=== PATIENT | female | born 1945 | race Caucasian/White ===

== ENCOUNTER 2022-11-30 12:53 | Outpatient (OUT) | payer MEDICARE, SELFPAY ==
--- NOTE | 2022-11-30 14:21 | CA_ITS ---
Patient Name Site Name PRAVIN SCHAEFFER [facility] Account No Medical Record Number Age Sex Date Time [id number] [facility]:[id number] F 11/30/2022 13:11 At the Request Of RICCO MOSER ECHOCARDIOGRAM REPORT PROCEDURE: CA ECHO DOPPLER COMPLETE INDICATIONS: Left ventricular diastolic dysfunction, PFO COMPARISON: None. DESCRIPTION: COMPLETE ECHOCARDIOGRAM Real-time transthoracic echocardiography with 2D, M-mode, spectral and color flow Doppler performed. QUALITY: Technical quality was good. LEFT VENTRICLE: Normal chamber size. Moderate concentric left ventricular hypertrophy. Global left ventricular systolic function is normal. LV EF: Calculated left ventricular ejection fraction is 65% DIASTOLIC: ATRIAL SEPTUM: A closure device is seen well seated in the atrial septum. No leaks were visualized LEFT ATRIUM: Mild dilatation. RIGHT ATRIUM: Mild dilatation. RIGHT VENTRICLE: Normal chamber size. Normal right ventricular systolic function. TRICUSPID VALVE: Normal mobility and thickness. No stenosis with trivial regurgitation. No evidence of pulmonary hypertension. RVSP 34 mmHg MITRAL VALVE: Normal mobility and thickness. No evidence of mitral valve stenosis. There is no mitral annular calcification. Trivial mitral regurgitation. AORTIC VALVE: Normal trileaflet appearance. No visible sclerosis. Normal leaflet mobility. No evidence of aortic valve stenosis. Trivial aortic regurgitation. AORTIC ROOT: Normal diameter and appearance. Mild dilatation of the ascending aorta measuring 3.7 cm. PULMONIC VALVE: Normal thickness and mobility. No stenosis. Trivial regurgitation. PERICARDIUM: No evidence of pericardial effusion. IVC: Collapses with inspirations. Normal size. PLEURA: CONCLUSION: 1. Moderate concentric left ventricular hypertrophy. Normal left ventricular systolic function. LVEF is 65%. 2. Normal right ventricular size and systolic function. 3. Mild biatrial dilatation. 4. No significant valvular dysfunction. 5. A closure device is seen well-seated in the atrial septum. No shunting seen by color Doppler. 6. Normal right-sided pressures. Mild dilatation of the ascending aorta. 7. 8. No pericardial effusion. Adult Echocardiography Procedure Report Left Ventricle LVEDD (3.7 - 5.6 cm): 4.56 cm LVESD (2.2 - 4.0 cm): 3.05 cm LVIVS thickness (0.6 - 1.2 cm): 1.34 cm LVPW thickness (0.5 - 1.0 cm): 1.37 cm e': 0.07 m/s E - e': 13.76 LVOT Max Gradient: 6.32 mm[Hg] LVOT Area (cm2): 1.26 m/s Peak Velocity (LVOT): 1.26 m/s Mean Velocity (LVOT): 0.85 m/s LVOT Diameter 1.93 cm Left Ventricular Ejection Fraction: 65.02 % Left Atrium LA Volume Index (2D A2C): 52.63 ml/m2 Left Atrium Systolic Dimension: 3.01 cm Mitral Valve MV E to A Ratio: 1.34 Mitral Valve A-Wave Peak Velocity: 0.73 m/s Mitral Valve E-Wave Peak Velocity: 0.98 m/s Right Ventricle RV Internal Diastolic Dimension: 2.90 cm Aorta AO Root Diam: 2.92 cm Ascending Ao Diam: 3.67 cm Aortic Valve AoV Area (Peak Rico): 2.59 cm2, 2.59 cm2 AoV Area (VTI): 2.50 cm2, 2.50 cm2 Peak Velocity(Antegrade Flow): 1.42 m/s Peak Gradient(Antegrade Flow): 8.03 mm[Hg] Mean Velocity(Antegrade Flow): 0.94 m/s Mean Gradient(Antegrade Flow): 4.09 mm[Hg] Velocity Time Integral: 26.36 cm Tricuspid Valve Peak Velocity (Regurgitant Flow): 2.38 m/s, 2.41 m/s, 2.78 m/s Pulmonic Valve Peak Velocity: 1.32 m/s Peak Gradient: 8.07 mm[Hg], 5.99 mm[Hg] Right Atrium Right Atrium Systolic Pressure: 39.98 ml, 39.98 ml Dictated by: eHrman Robertson M.D. on 12/01/2022 at 19:24 Approved by: Herman Robertson M.D. on 12/01/2022 at 19:31
== END 2022-11-30 12:54 | disposition home or self-care (01) ==
PROVIDERS: PCP Physician Assistant; Visit Provider Nurse Practitioner
DX: I51.9 Heart disease, unspecified (principal); Q21.12 Patent foramen ovale
CPT/HCPCS: 93306

== ENCOUNTER 2023-07-24 12:30 | Outpatient (OUT) | payer MEDICARE, SELFPAY | END 2023-07-24 12:31 | disposition home or self-care (01) | LOC: PST 12:31 | PROVIDERS: PCP Physician Assistant; Visit Provider Ophthalmology | DX: Z01.818 Encounter for other preprocedural examination (principal); H25.812 Combined forms of age-related cataract, left eye; H40.1121 Primary open-angle glaucoma, left eye, mild stage ==

== ENCOUNTER 2023-07-27 07:02 | Day surgery (SDC) | payer MEDICARE, SELFPAY ==
--- NOTE | 2023-07-26 | HP_ITS ---
Date: 07/26/2023 HISTORY: The patient is a 78-year-old white female with complaints of declining vision out of her left eye. The onset of this has been gradual, noticed over the last two years. It is constant in nature, effecting both distance as well as near. She states having difficulty watching TV and working on the computer. She has difficulty seeing crossword clues and smaller print. She also states have difficulty driving at night time due to oncoming headlights creating glare and halos. Additionally, she also suffers with primary open angle glaucoma and is concerned about the progression of this disease. She has had family members go blind because of the disease, and she does not feel always completely compliant with utilization of her drops. PAST OCULAR HISTORY: Includes dry eyes, glaucoma and cataracts. PAST MEDICAL HISTORY: Cellulitis, hyperlipidemia, hypertension, history of a patent foramen ovale, rheumatoid arthritis, history of a stroke in 2016, back surgery, gallbladder removed, hip arthroplasty, knee arthroplasty, shoulder surgery, ventral hernia repair and section. ALLERGIES TO MEDICATIONS: Include somataxin, aflatoxin, gabapentin, sulfa antibiotics. SYSTEMIC MEDICATIONS: Include lisinopril, furosemide, potassium chloride, folic acid, hydroxychloroquine, methotrexate, 81 mg aspirin, atorvastatin, colecalciferol. REVIEW OF SYSTEMS: No pertinent positives. PHYSICAL EXAM: GENERAL: In general, she is awake, alert and oriented x3, well developed, well nourished, in no acute distress. HEART: Regular rate and rhythm. LUNGS: Clear bilaterally. ABDOMEN: Soft, non-tender, non-distended. EXTREMITIES: No pitting edema. OPHTHALMIC EXAM: Revealed a visual acuity of 20/50 -1 in the right and 20/70 in the left that glared to 20/200 and 20/400 right and left eyes respectively.. Pupils motility, muscle balance and confrontational visual germain within normal limits bilaterally. Pressures are measured at 11 bilaterally. Slit lamp exam revealed blepharitis with a severe decrease in tear film bilaterally. Conjunctiva, cornea, anterior chamber and iris were within normal limits bilaterally. Lens status demonstrated 3+ nuclear sclerosis bilaterally. FUNDUS EXAM: Revealed good view with good dilation bilaterally. Optic discs, macula, vessels, periphery and vitreous were within normal limits bilaterally. ASSESSMENT AND PLAN: 1. Visually significant cataract, left eye. After the risks, benefits, and alternatives as well as expectations were delivered to the patient, she elected to go forward with cataract removal. She understands those risks to include but not limited to infection, bleeding, loss of vision or loss of the eye itself. Secondly, she understands that postoperatively she is likely to require spectacle correction for her best visual acuity. Finally, a complete ophthalmic exam was performed and there was not determined to be any other source of vision decline other than that of cataract. 2. Primary open angle glaucoma, mild severity. After the risks, benefits, alternatives as well as expectations were delivered to the patient, she elected to go forward with a Hydrus stent insertion. She understands the risks include but not limited to those listed above for the cataract removal process. In addition to these, she also understands that there is a risk of intraocular bleeding at the time of or shortly after the procedure is performed. Additionally, she understands that this does not guarantee the possibility of progression of the disease of glaucoma, nor does it guarantee the elimination of needing drops after the procedure. After understanding all risks as well as expectations, she elected to go forward with both the procedures as listed above and will be doing so in the near future. PAT
--- NOTE | 2023-07-27 | OP_ITS ---
OPERATION DATE: 07/27/2023 SURGEON: James Canela M.D. PREOPERATIVE DIAGNOSIS: 1. Nuclear sclerotic cataract left eye 2. Primary open angle glaucoma, mild severity, left eye. POSTOPERATIVE DIAGNOSIS: 1. Nuclear sclerotic cataract left eye. 2. Primary open angle glaucoma, mild severity, left eye. PROCEDURE NAME: 1. Cataract extraction with intraocular lens placement of the left eye. 2. Hydrus stent insertion left eye. ANESTHESIA: Topical ESTIMATED BLOOD LOSS: Zero. COMPLICATIONS: None. PROCEDURE: In the preoperative holding area, topical proparacaine was placed into the eye, and the patient was sat up in an upright position. In this position, the 90 degree, 6 o?clock limb axis was marked with a marking pen for future referencing for the Toric intraocular lens. The patient was then brought to the Operating Room in supine position. After proper identification, the left eye was prepped and draped in a sterile ophthalmic fashion. A paracentesis was created at the 5 o'clock position, and approximately 1 cc of unpreserved Xylocaine was injected into the anterior chamber followed by Amvisc Plus. Using a 2.6 mm Keratome blade, a clear corneal incision was created at the 2 o'clock limbus. A cystotome was then used to begin a curvilinear capsulorrhexis that was continued for 360 degrees with the Utrata forceps. BSS on a 26 gauge cannula was injected beneath the anterior capsule to hydrodissect as well as hydrodelineate the lens. After ensuring mobility, phacoemulsification was performed in a [id number]-type fashion. After all nuclear material had been removed from the eye, IA was introduced and all residual cortical material was cleaned up. Additional Amvisc Plus was injected into the posterior bag and a lens model [id number], 15.0 diopters was injected and dialed into bag. Drying off the surface of the eye and using a [employer] Toric marking system, the 86 degree axis was found and marked on the surface of the eye. The intraocular lens was dialed approximately 10 degrees shy of this 86 degree axis without difficult. Steps were now taken to move on to the glaucoma stenting procedure. Healon 5 was injected into the anterior chamber to further pressurize and stabilize it. Using the 2.6 mm Keratome blade, the internal lip of the main incision was expanded. The patient?s head was rotated away from the surgeon, and the operating microscope was rotated toward the surgeon, approximately 20 degrees each. Amvisc Plus was placed on the surface of the gonioprism that was placed on the surface of the eye, and this allowed for visualization of the trabecular meshwork at the 9 o?clock location. A Hydrus stent was called for and primed. This was then inserted through the temporal wound and guided across the anterior chamber with good visualization with the gonioprism in place. Once reaching the trabecular meshwork at the 9 o?clock location, the tip of the regulator pin inserter was used to dissect into the trabecular meshwork, accessing Schlemm?s canal. The stent was then deployed into Schlemm?s canal with good visualization at the 9 o?clock location. After checking for localization as well as stabilization, the regulator pin inserter and the gonioprism were removed from the eye and the patient?s head was rotated back to a more neutral cataract removal position. IA was reintroduced into the anterior chamber and all residual Amvisc Plus and Healon 5 were removed from the eye. BSS on a 30 gauge cannula was injected into the stroma of both the clear corneal incision as well as paracentesis to hydrate the wounds. Additional BSS was injected into the anterior chamber to pressurize the eye at approximately 20 to 22 mmHg by finger tension. Utilizing the irrigation cannula, the lens was rotated the final 10 degrees to the 86 degrees axis without difficulty. 0.1 cc of antibiotic was used into the anterior chamber, and Weck-Yulia sponge was used to check to be watertight. One drop of apraclonidine and one drop of prednisolone acetate were placed into the eye and a shield was placed over top. The patient was sent to the postoperative area in satisfactory condition to follow up the following day for postoperative care. PAT
--- OUTSIDE RECORDS SUMMARY | 2023-07-27 07:06 | XMS_ITS | CCD ---
Author Name Unknown Address [address] [place] [address] Organization [facility] Care Team Providers Care Domestic Maid Name Role Phone UNKNOWN, PROVIDER Unavailable Unavailable UNKNOWN, PROVIDER Unavailable Unavailable BERNA, CINDA Unavailable Unavailable BERNA, CINDA Unavailable Unavailable UNKNOWN, PROVIDER Unavailable Unavailable UNKNOWN, PROVIDER Unavailable Unavailable BERNA, CINDA Unavailable Unavailable BERNA, CINDA Unavailable Unavailable UNKNOWN, PROVIDER Unavailable Unavailable UNKNOWN, PROVIDER Unavailable Unavailable BERNA, CINDA Unavailable Unavailable BERNA, CINDA Unavailable Unavailable PHYSICIAN, DEFAULT Unavailable Unavailable PHYSICIAN, DEFAULT Unavailable Unavailable BERNA, CINDA Unavailable Unavailable PHYSICIAN, DEFAULT Unavailable Unavailable PHYSICIAN, DEFAULT Unavailable Unavailable BERNA, CINDA Unavailable Unavailable Samantha Murphy Primary Care Provider Cinda Coronel Primary Care Provider [phone] RICCO MOSER Attending Unavailable EHSAN, RICCO Admitting Unavailable MISDR TODD Acosta Consulting Unavailable EHSAN, RICCO Attending Unavailable EHSAN, RICCO Admitting Unavailable EHSAN, RICCO Consulting Unavailable Cinda CORONEL Primary Care Physician [phone] Mercedes Kelley Unavailable Unavailable Seamus, Staci Unavailable Unavailable MD Leonel Aguirre Attending Provider MD Leonel Aguirre Attending Provider Cinda Coronel Primary Care Provider RICCO MOSER Attending Unavailable SHAN BOX Attending Unavailable SHAN BOX Admitting Unavailable CINDA CORONEL Primary Care Unavailabl e NO FAMILY, PHYSICIAN Primary Care Provider Unava ilable MD Syd Muir Admit Provider MD Syd Muir Attending Provider OTIS Cruz Other Provider Unavailable OTIS Mack Other Provider Unavailable Raúl RN Rasheeda Other Provider Unavailable OTIS Durán Other Provider Unavailable OTIS Souza Other Provider Unavailable OTIS Virk Other Provider Unavailable MD Will Brown Other Provider ROBERT DowellN Staci M Other Provider DO Guerline Hickman Other Provider MD Levar Rodriguez Other Provider DO Tom Jenkins Other Provider MD Sotero Daley Other Provider MD Sue Beasley Other Provider Martha, ANP-BC Ivy Other Provider MD Pema Patel Other Provider [phone] MD Brown Young Other Provider MD Simi Alcaraz Other Provider MD Annia Esparza Other Provider DO Shan Hou Other Provider MD Mihaela Brown Other Provider MD Robin Randhawa Other Provider FIDENCIO Gross-Karla Gonzales Other Provider MD Enrique Rousseau Other Provider MD Conrad Davison Other Provider MD Montez Velazquez Other Provider MD Malcolm Burgos Other Provider DO Shantell Patterson Other Provider DO Carlos Garcia Other Provider [phone] DO Wm Belle Other Provider TRAY Michel Other Provider DO Coy Arias Other Provider MD Louis Franklin Other Provider TRAY Solorzano Other Provider TRAY Sosa Other Provider MD Christina Cross Other Provider MD Saul Rucker Other Provider TRAY Mcintyre Other Provider [phone] Georgie, RN Bhumi Other Provider Unavailable Berna BURT, Cinda Soliz Primary Care Provider NO FAMILY, PHYSICIAN Primary Care Provider Unava ilable MD Syd Muir Admit Provider MD Syd Muir Attending Provider OTIS Cruz Other Provider Unavailable OTIS Mack Other Provider Unavailable OTIS Olsen Other Provider Unavailable Leeanna RN Abril Other Provider Unavailable OTIS Souza Other Provider Unavailable OTIS Virk Other Provider Unavailable MD Will Brown Other Provider TRAY Dowell Other Provider [phone] DO Guerline Hickman Other Provider MD Levar Rodriguez Other Provider DO Tom Jenkins Other Provider MD Sotero Daley Other Provider MD Sue Beasley Other Provider TRAY Gannon Other Provider MD Pema Patel Other Provider MD Brown Young Other Provider MD Simi Alcaraz Other Provider MD Annia Esparza Other Provider DO Sahn Hou Other Provider MD Mihaela Brown Other Provider MD Robin Randhawa Other Provider HALEIGH GrossC Diane Gonzales Other Provider [phone] MD Enrique Rousseau Other Provider MD Conrad Davison Other Provider MD Montez Velazquez Other Provider MD Malcolm Burgos Other Provider DO Shantell Patterson Other Provider DO Carlos Garcia Other Provider DO Wm Belle Other Provider TRAY Michel Other Provider DO Coy Arias Other Provider MD Louis Franklin Other Provider [phone] TRAY Solorzano Other Provider TRAY Sosa Other Provider MD Christina Cross Other Provider MD Saul Rucker Other Provider TRAY Mcintyre Other Provider [phone] OTIS Jacques Other Provider Unavailable MD Leonel Aguirre Attending Provider [phone] Syd Muir Admitting Unavailable Syd Muir Attending Unavailable Rosa Maria Cruz Consulting Unavailable NO FAMILY, PHYSICIAN Primary Care Unavailable Nathalie Mack Consulting Unavailable Rasheeda Olsen Consulting Unavailable Abril Durán Consulting Unavailable Clarissa Souza Consulting Unavailable Fadumo Virk Consulting Unavailable Will Brown Consulting Unavailable Staci Dowell Consulting Unavailable Guerline Hickman Consulting Unavailable Michael, Levar Consulting Unavailable Tom Jenkins Consulting Unavailabl Sotero Russell Consulting Unavailable Sue Beasley Consulting Unavailable Ivy Gannon Consulting Unavailabl Pema Weiss Consulting Unavailable Brown Young Consulting Unavailable Simi Alcaraz Consulting Unavailable Annia Esparza Consulting Unavailable Shan Hou Consulting Unavailable Mihaela Brown Consulting Unavailable Robin Randhawa Consulting Unavailable Diane Gross Consulting Unavailable Enrique Rousseau Consulting Unavailab Conrad Galo Consulting Unavailable Montez Velazquez Consulting Unavailable Malcolm Burgos Consulting Unavailable Shantell Patterson Consulting Unavailable Carlos Garcia Consulting Unavailable Wm Belle Consulting Unavailable ObKiki mehta Consulting Unavailable Coy Arias Consulting Unavailable DaromarGreggayzaneh Liz Consulting Unavailable Yari Solorzano Consulting Unavailable MohShira cueto Consulting Unavailable Alajosephad Alaa Consulting Unavailable Saul Rucker Consulting Unavailable Juliana Mcintyre Consulting Unavailable Bhumi Jacques Consulting Unavailable Yanethy Leonel Admitting Unavailable Haladay Leonel Attending Unavailable HaladayLeonel Admitting Unavailable Haladay Leonel Attending Unavailable NO FAMILY, PHYSICIAN Primary Care Unavailable BERNA, CINDA SOLIZ Primary Care Unavailabl e SHAN BOX Attending Unavailable BERNA, CINDA SOLIZ Primary Care Unavailabl e SCOTCH, JUDIT Attending Unavailable BERNACINDA Primary Care Unavailabl e SCOTCH, JUDIT Referring Unavailable BERNA, CINDA FRANKLYN Primary Care Unavailabl RICO Ferrari Referring Unavailable BERNA, CINDA FRANKLYN Primary Care Unavailabl e BERNA, CINDA FRANKLYN Primary Care Unavailabl e SHAN BOX Referring Unavailable BERNACINDA Primary [facility] Unavailabl e SHAN BOX Referring Unavailable BERNACINDA Primary [facility] Unavailabl e SCOTCHJUDIT Attending Unavailable SHAN BOX Referring Unavailable BERNA, CINDA SOLIZ Primary Care Unavailabl e SHAN BOX Referring Unavailable BERNA, CINDA FRANKLYN Primary [facility] Unavailabl e BERNA, CINDA FRANKLYN Primary [facility] Unavailabl e SHAN BOX Attending Unavailable SHAN BOX Attending Unavailable CINDA CORONEL Primary Care UnavailCINDA Aldridge Primary Care UnavailSHAN Muniz Referring Unavailable Alysia Barrientos DO Mary Primary Care Provider [phone] AURY BASS Attending Unavailable Cinda CORONEL Admitting Unavailable REFERRAL, SELF Referring Unavailable Cinda CORONEL Attending Unavailable Cinda CORONEL Consulting Unavailable CARMEL CORONEL Consulting UnavailTHOMAS Whitlock Consulting Unavailable LEONEL AGUIRRE Attending Unavailable LEONEL AGUIRRE Admitting Unavailable COOKIE QUIROZ Attending Unavailable COOKIE QUIROZ Admitting Unavailable LEONEL AGUIRRE Consulting Unavailable MD LEONEL AGUIRRE Consulting Unavailable Allergies Allergy Classification Reported Allergen(s) Allergy Type Date of Onset Reaction(s) Facility Anti-Epileptic Agents (1 source) gabapentin Drug Allergy 5 Other: See Comments [facility] NSAIDs (1 source) celecoxib Drug Allergy 7 Hives, Swelling [facility] rofecoxib (1 source) rofecoxib Drug Allergy 7 Cough [facility] (2 sources) celecoxib; Translations: [Celebrex] Drug Allergy 6 [facility] (7 sources) gabapentin; Translations: [GABAPENTIN] Drug Allergy 5 AOF, Weakness [facility] (16 sources) rofecoxib; Translations: [vioxx] Drug Allergy 6 Aptyalism (disorder) [facility] (2 sources) Sulfonamides (Antibiotic); Translations: [SULFA (SULFONAMIDE ANTIBIOTICS)] Drug allergy (disorder) 6 AOF [facility] (20 sources) celecoxib; Translations: [celecoxib] Drug Allergy 7 Hives, Swelling [facility] (20 sources) gabapentin; Translations: [gabapentin] Drug Allergy 5 Falls (finding), Other: See Comments, Other, Unknown [facility] (15 sources) Sulfonamides (Antibiotic); Translations: [sulfa drugs] Drug allergy unknown [facility] (11 sources) rofecoxib; Translations: [ROFECOXIB] Drug Allergy 7 Cough [facility] (1 source) celecoxib Drug Allergy 3 [facility] (1 source) gabapentin Drug Allergy 3 [facility] (1 source) rofecoxib Drug Allergy 3 [facility] (1 source) celecoxib Drug Allergy 7 Hives, Swelling, Rash [facility] (1 source) rofecoxib Drug Allergy 7 Cough, Unknown [facility] (1 source) Sulfonamides (Antibiotic) Drug Allergy 3 Unknown [facility] Medications Current Medications Medication Drug Class(es) Dates Sig (Normalized) Sig (Original) acetaminophen 500 mg oral tablet (18 sources) Start: 02-10-2023 take 500 mg by mouth every four hours Acetaminophen Active 500 MG PO Q4H 0 February 09, 2023 11:00pm Start: 01-19-2023 take 2 tablets by mo uth every eight hours acetaminophen (TYLENOL) 500 mg tablet Take 2 tablets by mouth every 8 hours. 0 01/19/2023 Active Start: 05-18-2022 take 2 tablets by mo uth every six hours as needed for pain acetaminophen 325 mg Tab 650 mg = 2 tab(s), Oral, q6hr, PRN Pain, Refills(s) 0 Start Date: 05/18/22 Status: Ordered Start: 05-17-2019 take 2 tablets by mo uth every six hours as needed for pain acetaminophen 500 mg Tab 1,000 mg = 2 tab(s), Oral, q6hr, PRN as needed for pain Start Date: 05/17/19 Status: Ordered Comment on above: Take 2 tablets by mo uth every 8 hours. acetaminophen 325 mg / HYDROcodone bitartrate 5 mg oral tablet (1 source) Opioid Agonist Start: 2 End: 2 [place] 325 mg-5 mg oral tablet 1 tab(s), Oral, q6hr for pain for 3 day(s), 5 tab(s), Refill(s) 0 Start Date: 02/05/22 Stop Date: 02/08/22 Status: Ordered amoxicillin 875 mg / clavulanate 125 mg oral tablet (1 source) Penicillin-class Antibacterial Start: 2 End: 2 Augmentin 875 mg-125 mg Tab 1 tab(s), Oral, q12hr for 10 day(s), 20 tab(s), Refill(s) 0 Start Date: 02/05/22 Stop Date: 02/15/22 Status: Ordered aspirin 81 mg chewable tablet (20 sources) Platelet Aggregation Inhibitor, Nonsteroidal Anti-inflammatory Drug Start: 3 End: 3 take 1 tablet by mouth once daily Aspirin (Children's Aspirin) 81 mg Tablet,Chewable Active 81 MG PO Daily February 09, 2023 11:00pm Start: 12-23-2022 take 1 tablet by asif th once daily aspirin, enteric coated (ECOTRIN LOW STRENGTH) 81 mg EC tablet Take 1 tablet by mouth once daily. 0 12/23/2022 Active Start: 10-12-2018 take 1 tablet by asif th once daily aspirin 81 mg Oral EC Tab 81 mg = 1 tab(s), Oral, Daily, Refills(s) 0, Blood Thinner Start Date: 10/12/18 Status: Ordered Start: 10-12-2018 take 1 tablet by asif th once daily aspirin 81 mg Oral EC Tab 81 mg = 1 tab(s), Oral, Daily, Refills(s) 0, Blood Thinner Start Date: 10/12/18 Status: Ordered Start: 02-25-2015 End: 12-23-2022 take 1 tablet by mouth twice daily aspirin, enteric coated (ASPIRIN, ENTERIC COATED) 325 mg EC tablet Take 1 tablet by mouth twice daily. 80 tablet 0 02/25/2015 12/23/2022 Discontinued (Discontinued by another Health Care Provider) Comment on above: Take 1 tablet by asif th twice daily. Take 1 tablet by asif th once daily. atorvastatin 40 mg oral tablet (19 sources) HMG-CoA Reductase Inhibitor Start: 3 End: 3 take 40 mg by mouth once daily in the evening Atorvastatin Active 40 MG PO Every evening February 09, 2023 11:00pm Start: 07-18-2019 take 1 tablet by asif th once daily atorvastatin 40 mg Tab 40 mg = 1 tab(s), Oral, Daily, # 90 tab(s), Refills(s) 1, [id number] 154.5, cm, 04/10/19 15:59:00 EST, Height/Length Measured, 84.1, kg, 04/10/19 15:59:00 EST, Weight Measured Start Date: 07/18/19 Status: Ordered azithromycin 500 mg oral tablet (7 sources) Macrolide Antimicrobial Start: 05-18-2022 take 1 tablet by mouth once daily azithromycin 500 mg oral tablet 500 mg = 1 tab(s), Oral, Daily, # 3 tab(s), Refills(s) 0, Pharmacy: [facility]/pharmacy #[id number], 154, cm, 05/14/22 19:49:00 EST, Height/Length Dosing, 72.8, kg, 05/14/22 19:49:00 EST, Weight Dosing Start Date: 05/18/22 Status: Ordered benzonatate 100 mg oral capsule (7 sources) Non-narcotic Antitussive Start: 05-18-2022 take 2 capsules by mouth three times daily as needed for cough Tessalon 100 mg Cap 200 mg = 2 cap(s), Oral, TID, PRN Cough, # 20 cap(s), Refills(s) 0, [id number], cm, 05/14/22 19:49:00 EST, Height/Length Dosing, 72.8, kg, 05/14/22 19:49:00 EST, Weight Dosing Start Date: 05/18/22 Status: Ordered brimonidine tartrate 1.5 mg/ml ophthalmic solution (20 sources) alpha-Adrenergic Agonist Start: 02-10-2023 take 1 drop(s) into the eye(s) once daily Brimonidine Active 1 DROPS EYE-BOTH Daily 0 February 09, 2023 11:00pm Start: 02-01-2023 End: 02-10-2023 Brimonidine (Alphagan) 0.2 % Drops Discontinued 1 DROPS EYE-BOTH Daily January 31, 2023 11:00pm February 10, 2023 8:35am administer approximately 8 hours apart Start: 09-27-2009 take 1 drop(s) into the eye(s) once daily Alphagan P 0.15% ophthalmic solution 1 drop(s), Eye-Both, Daily, Refill(s) 0, Ocular congestion Start Date: 09/27/09 Status: Ordered Start: 09-27-2009 take 1 drop(s) into the eye(s) once daily Alphagan P 0.15% ophthalmic solution 1 drop(s), Eye-Both, Daily, Refill(s) 0, Ocular congestion Start Date: 09/27/09 Status: Ordered Start: 08-21-2006 ALPHAGAN P 0.1 % EYE DROPS one drop each eye daily 0 08/21/2006 Active Comment on above: one drop each eye [place] cephalexin 500 mg oral capsule (1 source) Cephalosporin Antibacterial Start: End: take 1 capsule by mouth every eight hours Keflex 500 mg Cap 500 mg = 1 cap(s), Oral, q8hr, X 3 day(s), # 9 cap(s), Refills(s) 0, Pharmacy: [facility]/pharmacy #[id number], 154, cm, 05/14/22 19:49:00 EST, Height/Length Dosing, 72.8, kg, 05/14/22 19:49:00 EST, Weight Dosing Start Date: 05/18/22 Stop Date: 05/21/22 Status: Ordered cholecalciferol 0.025 mg oral tablet (7 sources) Vitamin D Start: take 50 ug by mouth once daily Cholecalciferol (Vitamin D3) Active 50 MCG PO Daily 60 February 09, 2023 11:00pm Start: 02-01-2023 End: 02-10-2023 take 1 capsule by mouth once daily Cholecalciferol (Vitamin D3) (Vitamin D3) 25 mcg (1,000 unit) Capsule Discontinued 25 MCG PO Daily January 31, 2023 11:00pm February 10, 2023 8:35am Start: 12-23-2022 take 1 capsule by mo uth once daily Cholecalciferol, Vitamin D3, (VITAMIN D-3) 50 mcg (2,000 unit) cap Take 1 capsule by mouth once daily. 0 12/23/2022 Active take 1 capsule by mo ut in the morning cholecalciferol (Vitamin D-3) 50 MCG (2000 UT) capsule Take 2,000 Units by mouth in the morning. 0 Active Comment on above: Take 1 capsule by mo ut once daily. ferrous sulfate 324 mg delayed release oral tablet (10 sources) Start: 02-10-2023 Ferrous Sulfate Active 324 MG PO Q48H 15 February 09, 2023 11:00pm Start: 05-18-2022 take 1 tablet by asfi th once daily ferrous sulfate 325 mg Tab 325 mg = 1 tab(s), Oral, Daily, # 30 tab(s), Refills(s) 0, Pharmacy: [facility]/pharmacy #[id number], 154, cm, 05/14/22 19:49:00 EST, Height/Length Dosing, 72.8, kg, 05/14/22 19:49:00 EST, Weight Dosing Start Date: 05/18/22 Status: Ordered Start: 02-26-2015 End: 07-02-2015 take 1 tablet by mouth twice daily at mealtime ferrous sulfate 325 mg (65 mg iron) tablet Take 1 tablet by mouth twice daily with meals. 30 tablet 0 02/26/2015 07/02/2015 Discontinued Comment on above: Take 1 tablet by [facility] twice daily with meals. folic acid 1 mg oral tablet (20 sources) Start: 05-18-2022 Folic Acid Active 1 MG PO FR@0900 0 February 09, 2023 11:00pm Start: 04-10-2019 folic acid 1 m g Tab 4 mg = 4 tab(s), Oral, Monday, Arthritis Start Date: 04/10/19 Status: Ordered Start: 08-21-2006 take 4 tablets by mouth once F OLIC ACID 1 MG TAB Take four tablets po every Monday 0 08/21/2006 Active Comment on above: Take four tablets po every Monday furosemide 20 mg oral tablet (20 sources) Loop Diuretic Start: 2 End: 3 take 1 tablet by mouth in the morning furosemide (Lasix) 20 MG tablet Take 20 mg by mouth in the morning. 0 10/19/2022 Active Comment on above: Take 20 mg by mouth every morning. 12 hr guaiFENesin 600 mg extended release oral tablet (1 source) Start: 2 End: 2 take 2 tablets by mouth twice daily Mucinex 600 mg Tab-ER 1,200 mg = 2 tab(s), Oral, BID, X 3 day(s), # 12 tab(s), Refills(s) 0, Pharmacy: [facility]/pharmacy #[id number], 154, cm, 05/14/22 19:49:00 EST, Height/Length Dosing, 72.8, kg, 05/14/22 19:49:00 EST, Weight Dosing Start Date: 05/18/22 Stop Date: 05/21/22 Status: Ordered latanoprost 0.05 mg/ml ophthalmic solution (20 sources) Prostaglandin Analog Start: take 1 drop(s) into the eye(s) once daily in the evening Latanoprost Active 1 DROPS EYE-BOTH Every evening 0 February 09, 2023 11:00pm Start: 02-01-2023 End: 02-10-2023 take 1 drop(s) into the eye(s) once daily in the evening Latanoprost (Xalatan) 0.005 % drops Discontinued 1 DROPS EYE-BOTH Every evening January 31, 2023 11:00pm February 10, 2023 8:35am Start: 12-16-2015 take 1 drop(s) into the eye(s) once daily in the evening latanoprost ophthalmic 1 drop(s), Eye-Both, qPM, Refill(s) 0, Ocular congestion Start Date: 12/16/15 Status: Ordered take 1 drop(s) into the eye(s) once daily at bedtime latanoprost (XALATAN) 0.005 % ophthalmic solution 1 Drop daily at bedtime. 0 Active Comment on above: 1 Drop daily at bedt paulino. leflunomide 10 mg oral tablet (7 sources) Antirheumatic Agent Start: 06-24-19 17 take 1 tablet by mouth once daily leflunomide 10 mg oral tablet 10 mg = 1 tab(s), Oral, Daily, Refills(s) 0, Arthritis Start Date: 06/24/16 Status: Ordered lisinopril 40 mg oral tablet (20 sources) Angiotensin Converting Enzyme Inhibitor Start: 02-29-20 23 take 1 tablet by mouth in the morning lisinopril 40 MG tablet Indications: Primary hypertension (CMS/HCC) Take 1 tablet (40 mg) by mouth in the morning. 90 tablet 3 02/28/2023 Active Start: 02-10-2023 take 10 mg by mouth once daily Lisinopril Active 10 MG PO Daily February 09, 2023 11:00pm Start: 12-23-2022 End: 02-10-2023 take 1 tablet by mouth once daily lisinopril (ZESTRIL) 40 mg tablet Take 1 tablet by mouth once daily. 0 12/23/2022 Active Start: 05-18-2022 End: 05-18-2022 lisinopril 20 mg Tab 40 mg = 2 tab(s), Tab, Oral, Start date 05/18/22 9:00:00 EST, 05/15/22 6:56:00 EST Start Date: 05/18/22 Stop Date: 05/18/22 Status: Completed Start: 07-18-2019 take 1 tablet by asif th once daily lisinopril 40 mg Tab 40 mg = 1 tab(s), Oral, Daily, # 90 tab(s), Refills(s) 1, Pharmacy: [facility]/pharmacy #[id number], 154.5, cm, 04/10/19 15:59:00 EST, Height/Length Measured, 84.1, kg, 04/10/19 15:59:00 EST, Weight Measured Start Date: 07/18/19 Status: Ordered End: 12-23-2022 LISINOPRIL ORAL Take by mout h. 0 12/23/2022 Discontinued (Erroneous entry) LISINOPRIL ORAL Take by mouth. 0 Active Comment on above: Take by mouth. Take 1 tablet by asif th once daily. methylPREDNISolone 4 mg oral tablet (1 source) Corticosteroid Start: 2021 End: 2022 Medrol 4 mg Tab = 1 packet(s), Oral, As Directed, as directed on package labeling, X 6 day(s), # 21 tab(s), Refills(s) 0, Pharmacy: [facility]/pharmacy #[id number], 154, cm, 05/14/22 19:49:00 EST, Height/Length Dosing, 72.8, kg, 05/14/22 19:49:00 EST, Weight Dosing Start Date: 05/18/22 Stop Date: 05/24/22 Status: Ordered mupirocin 0.02 mg/mg topical ointment (3 sources) RNA Synthetase Inhibitor Antibacterial Start: 09-17- 2022 mupirocin Top 2% Oint 1 neftali, Topical, TID, 22 gram, Refill(s) 0 Start Date: 02/05/22 Status: Ordered pantoprazole 40 mg delayed release oral tablet (2 sources) Proton Pump Inhibitor Start: 2022 take 40 mg by mouth once daily Pantoprazole Active 40 MG PO Daily February 09, 2023 11:00pm Plenvu oral powder for reconstitution (1 source) Start: 2021 take 1 dose by mouth once Plenvu oral powder for reconstitution See Instructions, 1 EA, Refill(s) 0, samples given to patient (Rx), Per physician's instructions. Prior to colonoscopy. Start Date: 07/20/21 Status: Ordered potassium chloride 10 meq extended release oral tablet (16 sources) Start: 2022 take 1 tablet by mouth in the morning potassium chloride CR (Klor-Con) 10 MEQ ER tablet Take 10 mEq by mouth in the morning. 0 10/18/2022 Active Start: 07-20-2021 take 1 tablet by asif th once daily potassium chloride 10 mEq ER Tab 10 mEq = 1 tab(s), Oral, Daily, Prophylaxis Start Date: 07/20/21 Status: Ordered Comment on above: TAKE 1 TABLET (10 ME Q) BY MOUTH IN THE MORNING rivaroxaban 10 mg oral tablet (2 sources) Factor Xa Inhibitor Start: 02-10-2023 take 1 tablet by mouth once daily Rivaroxaban (Xarelto) 10 mg Tablet Active 10 MG PO Daily February 09, 2023 11:00pm Completed/Discontinued Medications Medication Drug Class(es) Dates Sig (Normalized) Sig (Original) clindamycin 300 mg oral capsule (6 sources) Lincosamide Antibacterial Start: 6 take 1 tablet by mouth every hour clindamycin (CLEOCIN) 300 mg capsule Take 1 tablet by mouth 1 hour prior to procedure and 1 tablet by mouth 6 hours after procedure 2 capsule 1 12/14/2015 Active Comment on above: Take 1 tablet by asif th 1 hour prior to procedure and 1 tablet by mouth 6 hours after procedure docusate sodium 100 mg oral capsule (2 sources) Start: 3 take 1 capsule by mouth every twelve hours as needed docusate sodium (COLACE) 100 mg capsule Take 1 capsule by mouth twice daily as needed for constipation. 0 01/19/2023 Active Comment on above: Take 1 capsule by mo ut twice daily as needed for constipation. hydroxychloroquine sulfate 200 mg oral tablet (20 sources) Antimalarial, Antirheumatic Agent Start: 6 End: 3 take 1 tablet by mouth twice daily at mealtime hydrOXYchloroQUINE (PLAQUENIL) 200 mg tablet Take 200 mg by mouth twice daily with meals. 0 11/14/2022 Active Comment on above: Take 200 mg by mouth twice daily with meals. methotrexate 2.5 mg oral tablet (20 sources) Folate Analog Metabolic Inhibitor Start: 3 End: 3 take 1 tablet by mouth once, then take 6 tablets by mouth every week methotrexate 2.5 mg tablet Take 1 tablet by mouth every Monday. 6 tablets ONCE WEEKLY 0 12/26/2022 Active Start: 10-12-2018 methotrexate 2 .5 mg Tab 10 mg = 4 tab(s), Oral, Monday, Pt. states dose was recently decreased by Dr. Guzman, Refills(s) 0, Arthritis Start Date: 10/12/18 Status: Ordered Start: 10-12-2018 methotrexate 2 .5 mg Tab 20 mg = 8 tab(s), Oral, Monday, Refills(s) 0, Arthritis Start Date: 10/12/18 Status: Ordered Comment on above: Take 2.5 mg by mouth . 8 tabs on Mondays Take 1 tablet by asif every Monday. 6 tablets ONCE WEEKLY oxyCODONE hydrochloride 5 mg oral tablet (6 sources) Opioid Agonist Start: 02-10-2023 oxyCODONE IR (ROXICODONE) 5 mg immediate release tablet Indications: S/P total knee replacement, left take 1 every 6 hours as needed for pain not relieved with Tylenol 28 tablet 0 02/10/2023 Active Start: 02-25-2015 End: 07-02-2015 take 5-10 mg by mouth every four hours as needed oxyCODONE immediate release (PERCOLONE) 5 mg immediate release tablet Take 1-2 tablets by mouth every 4 hours as needed. 70 tablet 0 02/25/2015 07/02/2015 Discontinued Start: 02-25-2015 End: 07-02-2015 take 1 tablet by mouth every twelve hours oxyCODONE ER (OXYCONTIN) 10 mg 12 hr tablet Take 1 tablet by mouth every 12 hours. 14 tablet 0 02/25/2015 07/02/2015 Discontinued Comment on above: Take 1 tablet by asif th every 12 hours. Take 1-2 tablets by mouth every 4 hours as needed. take 1 every 6 hours as needed for pain not relieved with Tylenol predniSONE 5 mg oral tablet (19 sources) Start: 12-23-2022 take 1 tablet by mouth once daily as needed for pain predniSONE (DELTASONE) 5 mg tablet Take 1 tablet by mouth as needed (daily only as needed for arthritis pain). 0 12/23/2022 Active Start: 07-20-2021 take 1 tablet by mouth once pr edniSONE 5 mg Tab 5 mg = 1 tab(s), Oral, Daily, My resume this once medrol dose pack is completed., Arthritis Start Date: 07/20/21 Status: Ordered Comment on above: Take 1 tablet by asif th as needed (daily only as needed for arthritis pain). Problems Active Problems Problem Classification Problem Date Documented Da te Episodic/Chronic Abdominal hernia (14 sources) Umbilical hernia 04-04-2019 Episodic Abdominal pain (14 sources) Right lower quadrant pain 08-03-2020 Episodic Acute cerebrovascular disease (5 sources) Cerebrovascular accident; Translations: [Cerebral infarction, unspecified] Onset: 12-23-2022 12-23-2022 Chronic Administrative/social admission (4 sources) Other reduced mobility; Translations: [Impaired mobility and activities of daily living] 02-01-2023 Episodic Bacterial infection; unspecified site (1 source) Methicillin resistant Staphylococcus aureus infection; Translations: [Methicillin resistant Staphylococcus aureus infection, unspecified site] Episodic Biliary tract disease (14 sources) Biliary calculus 08-03-2020 Episodic Cardiac and circulatory congenital anomalies (6 sources) Atrial septal defect; Translations: [Patent foramen ovale] Onset: 12-21-2016 Chronic Cardiac dysrhythmias (2 sources) Other specified cardiac arrhythmias; Translations: [Other specified cardiac arrhythmias] Onset: 11-09-2022 Chronic Chronic kidney disease (5 sources) Chronic kidney disease; Translations: [Chronic kidney disease, unspecified] Onset: 01-31-2023 02-01-2023 Chronic Complications of surgical procedures or medical care (5 sources) Postoperative wound infection; Translations: [Infection following a procedure, other surgical site, initial encounter] Onset: 01-31-2023 02-06-2023 Episodic Congestive heart failure; nonhypertensive (14 sources) Diastolic dysfunction 01-22-2019 Chronic Coronary atherosclerosis and other heart disease (6 sources) Atherosclerotic heart disease of [place] coronary artery without angina pectoris; Translations: [ATHSCL HEART DISEASE OF [place] CORONARY ARTERY W/O ANG PCTRS] Onset: 12-21-2016 Chronic Deficiency and other anemia (14 sources) Pancytopenia 04-10-2019 Chronic Deficiency and other anemia (4 sources) Anemia, unspecified; Translations: [Anemia, unspecified] Onset: 01-18-2017 02-11-2023 Episodic Deficiency and other anemia (17 sources) Anemia; Translations: [Anemia, unspecified] Onset: 05-17-2022 04-10-2019 Episodic Disorders of lipid metabolism (20 sources) Hypercholesterolemia; Translations: [Hyperlipidemia] Onset: 05-15-2022 04-10-2019 Chronic Diverticulosis and diverticulitis (14 sources) Diverticula of intestine; Translations: [Diverticulosis of intestine, part unspecified, without perforation or abscess without bleeding] Onset: 09-21-2021 Chronic Essential hypertension (20 sources) Essential (primary) hypertension; Translations: [Hypertensive disorder] Onset: 12-21-2016 04-10-2019 Chronic Fluid and electrolyte disorders (20 sources) Hyponatremia; Translations: [Dehydration] Onset: 05-15-2022 02-03-2019 Episodic Gastroduodenal ulcer (1 source) Gastric ulcer, unspecified as acute or chronic, without hemorrhage or perforation; Translations: [GASTRIC ULCER, UNSP ACUTE OR CHRONIC, W/O HEMOR OR PERF] Onset: 01-18-2017 Chronic Gastrointestinal hemorrhage (15 sources) Hemorrhage of rectum and anus; Translations: [Hemorrhage of anus and rectum] Onset: 09-03-2021 Episodic Genitourinary symptoms and ill-defined conditions (1 source) Urine screening abnormal; Translations: [Unspecified abnormal findings in urine] Onset: 05-17-2022 Episodic Glaucoma (20 sources) Glaucoma; Translations: [Unspecified glaucoma] Onset: 06-26-2014 08-03-2020 Chronic Hemorrhoids (14 sources) Hemorrhoids; Translations: [Unspecified hemorrhoids] Onset: 09-21-2021 Episodic Late effects of cerebrovascular disease (1 source) Other sequelae following unspecified cerebrovascular disease; Translations: [OTHER SEQUELAE FOLLOWING UNSPECIFIED CEREBROVASCULAR DISEASE] Onset: 01-18-2017 Chronic Malaise and fatigue (1 source) Asthenia; Translations: [Weakness] Onset: 05-14-2022 Episodic Nausea and vomiting (15 sources) Nausea; Translations: [Nausea and vomiting] Onset: 05-15-2022 08-03-2020 Episodic Osteoarthritis (20 sources) Osteoarthritis; Translations: [Unspecified osteoarthritis, unspecified site] Onset: 06-26-2014 12-23-2014 Chronic Osteoporosis (1 source) Age-related osteoporosis without current pathological fracture; Translations: [Age-related osteoporosis without current pathological fracture] Onset: 04-27-2022 Chronic Other aftercare (2 sources) Long-term current use of drug therapy; Translations: [Other intermediate manager (current) drug therapy] Episodic Other and ill-defined heart disease (1 source) Heart disease; Translations: [Heart disease, unspecified] Onset: 05-15-2022 Chronic Other and ill-defined heart disease (2 sources) Heart disease, unspecified; Translations: [Heart disease, unspecified] Onset: 11-09-2022 Chronic Other circulatory disease (14 sources) History of cerebrovascular accident without residual deficits 08-03-2020 Episodic Other circulatory disease (14 sources) History of cerebrovascular accident 04-10-2019 Episodic Other circulatory disease (1 source) Low blood pressure reading; Translations: [Nonspecific low blood-pressure reading] Onset: 09-21-2021 Episodic Other circulatory disease (1 source) History of transient ischemic attack; Translations: [Personal history of transient ischemic attack (TIA), and cerebral infarction without residual deficits] Onset: 05-15-2022 Episodic Other connective tissue disease (8 sources) History of repair of hip joint; Translations: [Presence of unspecified artificial hip joint] Onset: 06-26-2014 Chronic Other connective tissue disease (9 sources) History of total knee arthroplasty; Translations: [Presence of right artificial knee joint] Onset: 01-17-2023 Chronic Other connective tissue disease (3 sources) Presence of unspecified artificial knee joint; Translations: [Knee joint replacement] Onset: 01-31-2023 02-11-2023 Chronic Other connective tissue disease (1 source) Presence of left artificial knee joint; Translations: [S/P total knee replacement, left] Onset: 02-10-2023 Chronic Other connective tissue disease (1 source) Presence of artificial knee joint, bilateral; Translations: [Status post bilateral knee replacements] Onset: 10-26-2022 Chronic Other hematologic conditions (1 source) H/O: blood disorder; Translations: [Personal history of diseases of the blood and blood-forming organs and certain disorders involving the immune mechanism] Onset: 09-21-2021 Episodic Other hematologic conditions (13 sources) History of anemia 09-21-2021 Episodic Other lower respiratory disease (7 sources) Snoring; Translations: [Snoring] 12-23-2014 Episodic Other nervous system disorders (1 source) Other chronic pain; Translations: [Other chronic pain] Onset: 01-31-2023 Chronic Other nervous system disorders (14 sources) H/O: vertigo 11-13-2018 Episodic Other nervous system disorders (1 source) Other acute postprocedural pain; Translations: [Acute post-operative pain] Onset: 01-17-2023 Episodic Other nutritional; endocrine; and metabolic disorders (7 sources) Obese class II; Translations: [Obesity, unspecified] Onset: 06-26-2014 Chronic Other nutritional; endocrine; and metabolic disorders (9 sources) Obesity; Translations: [Obesity, unspecified] Onset: 05-15-2022 12-23-2014 Chronic Other nutritional; endocrine; and metabolic disorders (2 sources) Obese class I; Translations: [Obesity, unspecified] Onset: 01-16-2023 01-18-2023 Chronic Other nutritional; endocrine; and metabolic disorders (1 source) Obesity, unspecified; Translations: [Obesity without serious comorbidity, unspecified classification, unspecified obesity type] Onset: 12-23-2014 Chronic Other upper respiratory disease (1 source) Bronchospasm; Translations: [Acute bronchospasm] Onset: 05-16-2022 Episodic Pneumonia (except that caused by tuberculosis or sexually transmitted disease) (1 source) Pneumonia; Translations: [Pneumonia, unspecified organism] Onset: 05-14-2022 Episodic Pulmonary heart disease (20 sources) Pulmonary hypertension; Translations: [Pulmonary hypertension, unspecified] Onset: 06-28-2016 04-10-2019 Chronic Residual codes; unclassified (14 sources) Chronic pain 11-13-2018 Episodic Comment on above: Right Shoulder Residual codes; unclassified (14 sources) Edema of lower leg 03-08-2021 Episodic Residual codes; unclassified (1 source) Other specified health status; Translations: [Other specified health status] Onset: 01-31-2023 Episodic Rheumatoid arthritis and related disease (20 sources) Rheumatoid arthritis; Translations: [Rheumatoid arthritis, unspecified] Onset: 06-26-2014 02-24-2015 Chronic Skin and subcutaneous tissue infections (19 sources) Cellulitis of left lower limb; Translations: [Cellulitis] Onset: 03-31-2021 Episodic Spondylosis; intervertebral disc disorders; other back problems (7 sources) Lumbosacral spondylosis without myelopathy; Translations: [Spondylosis without myelopathy or radiculopathy, lumbosacral region] Onset: 12-01-2014 12-01-2014 Chronic Spondylosis; intervertebral disc disorders; other back problems (20 sources) Spinal stenosis of lumbar region; Translations: [Spinal stenosis, lumbar region without neurogenic claudication] Onset: 09-12-2003 02-24-2015 Episodic Unclassified (2 sources) Unknown / UNK(Unknown) Onset: 12-21-2016 Unclassified (14 sources) Patient encounter status 08-03-2020 Unclassified (1 source) Rheumatoid arthritis with rheumatoid factor of multiple sites without organ or systems involvement; Translations: [Rheumatoid arthritis with rheumatoid factor of multiple sites without organ or systems involvement] Onset: 04-05-2023 Viral infection (14 sources) Herpes zoster 08-03-2020 Episodic Past or Other Problems Problem Classification Problem Date Documented Da te Episodic/Chronic Acute posthemorrhagic anemia (7 sources) Anemia following acute postoperative blood loss; Translations: [Acute posthemorrhagic anemia] Onset: 06-26-2014 Episodic Blindness and vision defects (1 source) Other visual disturbances; Translations: [OTHER VISUAL DISTURBANCES] Onset: 01-18-2017 Episodic Cardiac and circulatory congenital anomalies (1 source) Personal history of (corrected) congenital malformations of heart and circulatory system; Translations: [S/P patent foramen ovale closure] Onset: 12-23-2022 Episodic Cardiac dysrhythmias (1 source) Palpitations; Translations: [PALPITATIONS] Onset: 01-18-2017 Episodic Complication of device; implant or graft (7 sources) Prosthetic joint mechanical failure; Translations: [Broken internal joint prosthesis, unspecified site, initial encounter] Onset: 06-25-2014 01-18-2023 Episodic Other acquired deformities (7 sources) Acquired spondylolisthesis; Translations: [Spondylolisthesis, site unspecified] Onset: 09-12-2003 09-15-2003 Episodic Other acquired deformities (7 sources) Lumbar spondylolisthesis; Translations: [Spondylolisthesis, lumbar region] Onset: 12-23-2014 12-23-2014 Episodic Other aftercare (2 sources) 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 of antithrombotics/antip latelets; Translations: [halfway (current) use of aspirin] Onset: 12-21-2016 Episodic Other aftercare (7 sources) Surgical follow-up; Translations: [Encounter for follow-up examination after completed treatment for conditions other than malignant neoplasm] Onset: 10-06-2006 10-06-2006 Episodic Other aftercare (1 source) Other retirement (current) drug therapy; Translations: [Other intermediate manager (current) drug therapy] Onset: 04-27-2022 Episodic Other circulatory disease (1 source) Personal history of transient ischemic attack (TIA), and cerebral infarction without residual deficits; Translations: [PRSNL HX OF TIA (TIA), AND CEREB INFRC W/O RESID DEFICITS] Onset: 12-21-2016 Episodic Other connective tissue disease (7 sources) Enthesopathy of hip region; Translations: [Other specified enthesopathies of unspecified lower limb, excluding foot] Onset: 09-12-2003 09-15-2003 Episodic Other connective tissue disease (7 sources) Soft tissue lesion of shoulder region; Translations: [Bursopathy, unspecified] Onset: 06-25-2008 06-25-2008 Episodic Other connective tissue disease (7 sources) Bursitis; Translations: [Bursopathy, unspecified] Onset: 02-18-2014 02-18-2014 Episodic Other connective tissue disease (1 source) Muscle weakness of limb; Translations: [Other symptoms and signs involving the musculoskeletal system] Onset: 11-06-2022 11-06-2022 Episodic Other non-traumatic joint disorders (1 source) Pain in left knee; Translations: [Pain in joint, lower leg] Onset: 11-06-2022 11-06-2022 Episodic Other screening for suspected conditions (not mental disorders or infectious disease) (3 sources) Procedure carried out on subject; Translations: [Encounter for screening, unspecified] Onset: 09-21-2021 Episodic Phlebitis; thrombophlebitis and thromboembolism (7 sources) Personal history of other venous thrombosis and embolism; Translations: [History of thromboembolism of vein] Onset: 12-21-2016 Episodic Residual codes; unclassified (7 sources) H/O Spinal surgery; Translations: [Other specified postprocedural states] Onset: 12-09-2014 12-09-2014 Episodic Residual codes; unclassified (18 sources) H/O cardiac surgery; Translations: [Personal history of (corrected) congenital malformations of heart and circulatory system] Onset: 12-23-2022 08-03-2020 Episodic Results Test Name Value Interpretation Reference Range Facility CBC w/ Auto Diffon 4 Basophil Absolute 0.0 E9/L Normal 0.0-0.2 [facility] Comment on above: Performed By: #### 2 275293, 6726653, 75538806, 58821971, 8604595 #### [facility] [address] [place] [address] Basophils/100 WBC (Bld) 0.2 % Normal 0.0-2.0 [facility] Comment on above: Performed By: #### 2 781656, 6313697, 05834881, 19801371, 1562774 #### [facility] [address] [place] [address] Eos Absolute 0.1 E9/L Normal 0.0-0.5 [facility] Comment on above: Performed By: #### 2 909771, 2963926, 60789590, 82090653, 5474263 #### [facility] [address] [place] [address] Eosinophils/100 WBC (Bld) 0.5 % Normal 0.0-8.0 [facility] Comment on above: Performed By: #### 2 668015, 4910577, 66006362, 79218742, 1807161 #### [facility] [address] [place] [address] Erythrocyte distribution width (RBC) [Ratio] 14.1 % Normal 10.9-14.2 [facility] Comment on above: Performed By: #### 2 157326, 9980209, 11227125, 69388482, 3990488 #### [facility] [address] [place] [address] Hematocrit (Bld) [Volume fraction] 34.0 % Normal 34.0-46.0 [facility] Comment on above: Performed By: #### 2 966259, 6806792, 13842853, 17767702, 6873649 #### [facility] [address] [place] [address] Hemoglobin (Bld) [Mass/Vol] 11.3 g/dL Low 12.0-16.0 [facility] Comment on above: Performed By: #### 2 239441, 2066138, 84734693, 98790166, 2666286 #### [facility] [address] [place], [place] [id number] Lymph Absolute 1.3 E9/L Normal 1.0-4.0 [facility] Comment on above: Performed By: #### 2 126112, 0881811, 48969207, 64640420, 0170367 #### [facility] [address] [place], [place] [address] Lymphocytes/100 WBC (Bld) 14.6 % Normal 14.0-50.0 [facility] Comment on above: Performed By: #### 2 600797, 4514106, 85326871, 94841421, 6684249 #### [facility] [address] [place] [address] MCH (RBC) [Entitic mass] 33.4 pg Normal 27.0-34.0 [facility] Comment on above: Performed By: #### 2 051487, 5355027, 83418029, 76728248, 8615633 #### [facility] [address] [place] [address] MCHC (RBC) [Mass/Vol] 32.9 g/dL Normal 31.4-36.0 [facility] Comment on above: Performed By: #### 2 209938, 5607059, 00521521, 25635894, 3191215 #### [facility] [address] [place] [address] MCV (RBC) [Entitic vol] 101.5 fL High 80.0-100.0 [facility] Comment on above: Performed By: #### 2 137919, 8834071, 39832045, 89175813, 7433314 #### [facility] [address] [place] [address] [place] Absolute 0.6 E9/L Normal 0.2-1.0 [facility] Comment on above: Performed By: #### 2 225168, 1490414, 74652048, 64887255, 4054468 #### [facility] [address] [place] [address] Monocytes/100 WBC (Bld) 6.3 % Normal 4.0-14.0 [facility] Comment on above: Performed By: #### 2 817418, 5980018, 70755299, 36821243, 1149257 #### [facility] [address] [place] [address] Neutro Absolute 7.2 E9/L Normal 2.0-7.5 [facility] Comment on above: Performed By: #### 2 894577, 5598787, 81104375, 91899947, 8794609 #### [facility] [address] [place] [address] Neutro Auto 78.4 % High 36.0-75.0 [facility] Comment on above: Performed By: #### 2 181836, 9027972, 36399932, 01067158, 6394160 #### [facility] [address] [place] [address] Platelet 270.0 E9/L Normal 150.0-500. 0 [facility] Comment on above: Performed By: #### 2 538176, 6757911, 35497055, 24394208, 1844568 #### [facility] [address] [place] [address] Platelet mean volume (Bld) [Entitic vol] 7.8 fL Normal 6.4-10.8 [facility] Comment on above: Performed By: #### 2 979524, 4376423, 55155324, 90803537, 8425585 #### [facility] [address] [place] [address] RBC 3.4 E12/L Low 4.3-5.9 [facility] Comment on above: Performed By: #### 2 995525, 7133711, 17937509, 01967656, 7898513 #### [facility] [address] [place] [address] WBC 9.2 E9/L Normal 4.0-11.0 [facility] Comment on above: Performed By: #### 2 517243, 0297193, 88069761, 31160729, 4926905 #### [facility] [address] [place] [address] Consent for Treatmenton 06-22 Consent for Treatment [id number] Normal [facility] Creatinineon 07-07-2023 Creatinine [Mass/Vol] 1.2 mg/dL Normal 0.5-1.3 [facility] Comment on above: Performed By: #### 2 067809, 6030191, 88746236, 37443473, 6893542 #### [facility] [address] [place] [address] Hep Func Panelon 07-07-2023 Albumin [Mass/Vol] 4.3 g/dL Normal 3.3-5.0 [facility] Comment on above: Performed By: #### 2 763809, 0761599, 26836303, 83716545, 4190845 #### [facility] [address] [place] [address] Albumin/Globulin [Mass ratio] 1.7 {ratio} Normal 1.1-2.2 [facility] Comment on above: Performed By: #### 2 408560, 0877101, 47116991, 45732186, 9925807 #### [facility] [address] [place] [address] Alk Phos 105 Int._Unit/L High 21-98 [facility] Comment on above: Performed By: #### 2 623088, 8568167, 58951748, 16411847, 9299809 #### [facility] [address] [place] [address] ALT 23 Int._Unit/L Normal 6-46 [facility] Comment on above: Performed By: #### 2 237116, 1255451, 23504162, 87424069, 1616744 #### [facility] [address] [place] [address] AST 28 Int._Unit/L Normal 5-43 [facility] Comment on above: Performed By: #### 2 969810, 2550265, 97972781, 28076476, 8342583 #### [facility] [address] [place] [address] Bili Direct 0.2 mg/dL Normal 0.0-0.4 [facility] Comment on above: Performed By: #### 2 525676, 9799376, 66899704, 42012470, 8958264 #### [facility] [address] [place] [address] Bili Indirect 0.4 mg/dL Normal 0.1-0.9 [facility] Comment on above: Performed By: #### 2 330783, 4908825, 76948723, 01350930, 6141018 #### [facility] [address] [place] [address] Bili Total 0.6 mg/dL Normal 0.0-1.1 [facility] Comment on above: Performed By: #### 2 580829, 5359529, 26824889, 57270948, 6768073 #### [facility] [address] [place] [address] Globulin (S) [Mass/Vol] 2.5 g/dL Normal 1.4-4.0 [facility] Comment on above: Performed By: #### 2 647432, 2299081, 21579500, 20690892, 5271349 #### [facility] [address] [place] [address] Protein [Mass/Vol] 6.8 g/dL Normal 6.0-7.8 [facility] Comment on above: Performed By: #### 2 669926, 3128982, 63427515, 60414527, 5968029 #### [facility] [address] [place] [address] Physician Orderon 07-07-2023 Physician Order [id number] Normal [facility] Sed Rate Automatedon 024 ESR (Bld) [Velocity] 14 mm/h Normal 0-34 [facility] Comment on above: Performed By: #### 2 292218, 0875697, 63547395, 99191008, 6602977 #### [facility] [address] [place] [address] eGFRon 07-07-2023 eGFR 46 mL/min/1.73 m2 Low >=59 [facility] Comment on above: Order Comment: Order added by Discern Expert. Performed By: #### 2 894865, 3526713, 06528242, 48890787, 4492599 #### [facility] [address] [place] [address] CNOVon 04-17-2023 CNOV Office Visit (LOORRM ) -- KIKI MOORE ([id number]) 1945 F Date Time Provider Department 04/17/23 8:30 AM [facility] During your visit today, we recorded the following information about you: Referring Provider: SELF [200] Allergies As of Date: 04/17/2023 Noted Allergy Reaction CELEBREX (CELECOXIB) 08/21/2006 4 - Hives 7 - Swelling VIOXX (ROFECOXIB) 08/21/2006 3 - Cough Comments: states she had extreme dry mouth GABAPENTIN 11/12/2014 14 - Other: See Comments Comments: Syncope with fall Date Reviewed: 04/17/2023 Reviewed by: Shan Box MD - Fully Assessed Reason for Visit: Established Patient [175] Follow Up [171] Post Op [174] Knee Replacement [363] Primary Visit Diagnosis:S/P total knee replacement, left [Z96.652] Order(s):XR KNEE POST OP 3V AP/LAT/ LEFT [4198475] Order #: [id number] FUTURE Prescriptions as of 04/17/2023 - oxyCODONE IR (ROXICODONE) 5 mg immediate release tablet take 1 every 6 hours as needed for pain not relieved with Tylenol - docusate sodium (COLACE) 100 mg capsule Take 1 capsule by mouth twice daily as needed for constipation. - acetaminophen (TYLENOL) 500 mg tablet Take 2 tablets by mouth every 8 hours. - hydrOXYchloroQUINE (PLAQUENIL) 200 mg tablet Take 200 mg by mouth twice daily with meals. - furosemide (LASIX) 20 mg tablet Take 20 mg by mouth every morning. - lisinopril (ZESTRIL) 40 mg tablet Take 1 tablet by mouth once daily. - aspirin, enteric coated (ECOTRIN LOW STRENGTH) 81 mg EC tablet Take 1 tablet by mouth once daily. - methotrexate 2.5 mg tablet Take 1 tablet by mouth every Monday. 6 tablets ONCE WEEKLY - Cholecalciferol, Vitamin D3, (VITAMIN D-3) 50 mcg (2,000 unit) cap Take 1 capsule by mouth once daily. - predniSONE (DELTASONE) 5 mg tablet Take 1 tablet by mouth as needed (daily only as needed for arthritis pain). - clindamycin (CLEOCIN) 300 mg capsule Take 1 tablet by mouth 1 hour prior to procedure and 1 tablet by mouth 6 hours after procedure - latanoprost (XALATAN) 0.005 % ophthalmic solution 1 Drop daily at bedtime. 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16] 12/23/2014 Lumbar stenosis with neurogenic claudication [M*12/23/2014 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 Stroke ([facility]) [I63.9] DVT of popliteal vein ([facility]) [I82.439] S/P patent foramen ovale closure [Z87.74] 12/23/2022 Hypertension [I10] Pulmonary hypertension ([facility]) [I27.20] 06/28/2016 Primary osteoarthritis of left knee [M17.12] 12/23/2022 Obesity, Class I, BMI 30-34.9 [E66.9] 01/16/2023 Status post total left knee replacement [Z96.65*01/17/2023 KAMI (acute kidney injury) ([facility]) [N17.9] 01/18/2023 01/19/2023 Hyponatremia [E87.1] 01/18/2023 Hyperkalemia [E87.5] 01/18/2023 01/19/2023 S/P total knee replacement, left [Z96.652] 01/18/2023 Hypomagnesemia [E83.42] 01/19/2023 01/19/2023 Disposition: Return in about 3 months (around 07/18/2023). Follow-up and Disposition History for Encounter Date Provider Department Center 04/17/2023 3103-SHAN BOX Encounter Status:Closed by SHAN BOX II on 04/17/23 Normal [facility] XR KNEE 3V AP/LAT/MERCHANT L Ton 04-17-2023 XR KNEE 3V AP/LAT/MERCHANT LT * * *Final Report* * * DATE OF EXAM: Apr 17 2023 8:50AM LZX [id number] - XR KNEE 3V AP/LAT/MERCHANT LT / PROCEDURE REASON: S/P total knee replacement, left * * * * Physician Interpretation * * * * EXAMINATION / TECHNIQUE: XR KNEE 3V AP/LAT/MERCHANT LT PATIENT/TECHNOLOGIST PROVIDED HISTORY: FOLLOW UP FOR LEFT KNEE REPLACEMENT CLINICAL INFORMATION ( PROVIDED BY ORDERING CLINICIAN) : S/P total knee replacement, left COMPARISON: 02/10/2023 and 10/26/2022 knee radiographs RESULT: Status post left total knee arthroplasty. Hardware is intact without evidence of failure or loosening. Bony alignment is unchanged. Small joint effusion. Right total knee arthroplasty, similar in appearance to prior with eccentric positioning of femoral component. IMPRESSION: Left total knee arthroplasty without complication. Polisher And Buffer: MAGDALENE Transcribe Date/Time: Apr 17 2023 9:42A Dictated by : AURY BRANDT MD This examination was interpreted and the report reviewed and electronically signed by: LEE PAGE MD on Apr 17 2023 11:37PM EST [id number] Normal [facility] Alanine aminotransferase [En zymatic activity/volume] in Serum or PlasmaOrdered By: Leonel Aguirre on 04-05-2023 ALT [Catalytic activity/Vol] 23 U/L 7-52 [facility] Albumin [Mass/volume] in Ser um or Plasma by Bromocresol green (BCG) dye binding methoOrdered By: Leonel Aguirre on 04-05-2023 Albumin BCG dye [Mass/Vol] 4.4 g/dL 3.5-5.7 [facility] Alkaline phosphatase [Enzyma tic activity/volume] in Serum or PlasmaOrdered By: Leonel Aguirre on 04-05-2023 ALP [Catalytic activity/Vol] 151 U/L 34-104 [facility] Aspartate aminotransferase [ Enzymatic activity/volume] in Serum or PlasmaOrdered By: Leonel Aguirre on 04-05-2023 AST [Catalytic activity/Vol] 30 U/L 13-39 [facility] Basophils Auto (Bld) [#/Vol] Ordered By: Leonel Aguirre on 04-05-2023 Basophils (Bld) [#/Vol] 0.0 10*3/uL 0.0-0.2 [facility] Basophils/100 WBC Auto (Bld) Ordered By: Leonel Aguirre on 04-05-2023 Basophils/100 WBC (Bld) 0.1 % . F [facility] Bilirubin.direct [Mass/volum e] in Serum or PlasmaOrdered By: Leonel Aguirre on 04-05-2023 Bilirubin.direct [Mass/Vol] 0.10 mg/dL 0.03-0.18 [facility] Bilirubin.total [Mass/volume ] in Serum or PlasmaOrdered By: Leonel Aguirre on 04-05-2023 Bilirubin [Mass/Vol] 0.6 mg/dL 0.3-1.0 [facility] C reactive protein [Mass/vol ume] in Serum or PlasmaOrdered By: Leonel Aguirre on 04-05-2023 CRP [Mass/Vol] < 0.5 mg/dL 0.0-0.5 [facility] C-Reactive Proteinon 023 CRP [Mass/Vol] mg/L Normal 0.0-0.5 [facility] Comment on above: Result Comment: PERF ORMED BY: [place] [address] PATHOLOGIST ENRICHMENT DIRECTOR KWADWO PULIDO M.D. Performed By: #### C BC, CMP, PAB #### [address] Complete Blood Count Auto Di ffon 04-05-2023 Basophils (Bld) [#/Vol] 0.0 10*3/uL Normal 0.0-0.2 [facility] Comment on above: Performed By: #### C BC, CMP, PAB #### [address] Basophils/100 WBC (Bld) 0.1 % Normal . F [facility] Comment on above: Performed By: #### C BC, CMP, PAB #### [address] Eosinophils (Bld) [#/Vol] 0.0 10*3/uL Normal 0.0-0.45 [facility] Comment on above: Performed By: #### C BC, CMP, PAB #### [address] Eosinophils/100 WBC (Bld) 0.6 % Normal . [facility] Comment on above: Performed By: #### C BC, CMP, PAB #### [address] Erythrocyte distribution width (RBC) [Ratio] 14.5 % Normal 11.9-15.3 [facility] Comment on above: Performed By: #### C BC, CMP, PAB #### [address] Hematocrit (Bld) [Volume fraction] 33.2 % Low 34.0-46.4 [facility] Comment on above: Performed By: #### C MEGGAN NORTON, PAB #### [address] Hemoglobin (Bld) [Mass/Vol] 11.1 g/dL Low 11.8-15.4 [facility] Comment on above: Performed By: #### C BC CMP, PAB #### [address] Lymphocytes (Bld) [#/Vol] 1.3 10*3/uL Normal 1.00-4.8 [facility] Comment on above: Performed By: #### C ERROL CMP, PAB #### [address] Lymphocytes/100 WBC (Bld) 16.1 % Normal . [facility] Comment on above: Performed By: #### C ERROL CMP, PAB #### [address] MCH (RBC) [Entitic mass] 32.7 pg Normal 24.7-34.3 [facility] Comment on above: Performed By: #### C ERROL CMP, PAB #### [address] MCV (RBC) [Entitic vol] 98.3 fL Normal 80-100 F [facility] Comment on above: Performed By: #### C BC CMP, PAB #### [address] Mean Corpuscular HGB Conc 33.3 g/dL Normal 32.0-35.0 [facility] Comment on above: Performed By: #### C BC CMP, PAB #### [address] Monocytes (Bld) [#/Vol] 0.4 10*3/uL Normal 0.0-0.8 [facility] Comment on above: Performed By: #### C BC, CMP, PAB #### [address] [place] [address] [place] Monocytes/100 WBC (Bld) 5.1 % Normal . F [facility] Comment on above: Performed By: #### C BC, CMP, PAB #### [facility] [address] [place] [id number] [place] Neutrophils (Bld) [#/Vol] 6.5 10*3/uL Normal 1.8-7.7 [facility] Comment on above: Performed By: #### C BC, CMP, PAB #### [facility] [address] [place] [address] [place] Neutrophils/100 WBC (Bld) 78.1 % Normal . [facility] Comment on above: Performed By: #### C BC, CMP, PAB #### [facility] [address] [place] [address] [place] NRBC% 0.1 /100{WBC} Normal 0-0.5 [facility] Comment on above: Performed By: #### C BC, CMP, PAB #### [facility] [address] [place] [address] [place] Platelet mean volume (Bld) [Entitic vol] 8.2 fL Normal 6.3-10.7 [facility] Comment on above: Performed By: #### C BC, CMP, PAB #### [facility] [address] [place] [phone] [place] Platelets (Bld) [#/Vol] 194 10*3/uL Normal 150-450 [facility] Comment on above: Performed By: #### C BC, CMP, PAB #### [facility] [address] [place] [address] [place] RBC (Bld) [#/Vol] 3.38 10*6/uL Low 3.60-5.00 [facility] Comment on above: Performed By: #### C BC, CMP, PAB #### [facility] [address] [place] [phone] [place] WBC (Bld) [#/Vol] 8.3 10*3/uL Normal 3.8-11.6 [facility] Comment on above: Performed By: #### C BC, CMP, PAB #### [facility] [address] Creatinineon 04-05-2023 Creatinine [Mass/Vol] 0.99 mg/dL Normal 0.60-1.20 [facility] Comment on above: Performed By: #### C MEGGAN NORTON, PAB #### [facility] [address] GFR/1.73 sq M.predicted MDRD (S/P/Bld) [Vol rate/Area] 58.728 mL/min/{1.73_m2} Normal [facility] Comment on above: Performed By: #### C MEGGAN NORTON, PAB #### [address] Creatinine [Mass/volume] in Serum or PlasmaOrdered By: Leonel Aguirre on 04-05-2023 Creatinine [Mass/Vol] 0.99 mg/dL 0.60-1.20 [facility] Eosinophils Auto (Bld) [#/Vo l]Ordered By: Leonel Aguirre on 04-05-2023 Eosinophils (Bld) [#/Vol] 0.0 10*3/uL 0.0-0.45 [facility] Eosinophils/100 WBC Auto (Bl d)Ordered By: Leonel Aguirre on 04-05-2023 Eosinophils/100 WBC (Bld) 0.6 % . [facility] Erythrocyte Sedimentation Ra eddi 04-05-2023 ESR (Bld) [Velocity] 10 mm/h Normal 0-29 [facility] Comment on above: Result Comment: PERF ORMED BY: [place] [address] PATHOLOGIST ENRICHMENT DIRECTOR KWADWO PULIDO M.D. Performed By: #### C MEGGAN NORTON, PAB #### [address] Erythrocyte distribution wid th Auto (RBC) [Ratio]Ordered By: Leonel Aguirre on 04-05-2023 Erythrocyte distribution width (RBC) [Ratio] 14.5 % 11.9-15.3 [facility] Erythrocyte sedimentation ra te by Photometric methodOrdered By: Leonel Aguirre on 04-05-2023 ESR Photometric method (Bld) [Velocity] 10 mm/hr 0-29 [facility] Globulin Calc (S) [Mass/Vol] Ordered By: Leonel Aguirre on 04-05-2023 Globulin (S) [Mass/Vol] 2.2 g/dL [facility] Hematocrit Auto (Bld) [Volum e fraction]Ordered By: Leonel Aguirre on 04-05-2023 Hematocrit (Bld) [Volume fraction] 33.2 % 34.0-46.4 [facility] Hemoglobin [Mass/volume] in BloodOrdered By: Leonel Aguirre on 04-05-2023 Hemoglobin (Bld) [Mass/Vol] 11.1 g/dL 11.8-15.4 [facility] Hepatic Panelon 04-05-2023 Albumin [Mass/Vol] 4.4 g/dL Normal 3.5-5.7 [facility] Comment on above: Performed By: #### C BC CMP, PAB #### [address] Albumin/Globulin [Mass ratio] 2.0 {ratio} Normal [facility] Comment on above: Performed By: #### C ERROL CMP, PAB #### [address] ALP [Catalytic activity/Vol] 151 U/L High 34-104 [facility] Comment on above: Performed By: #### C BC, CMP, PAB #### [facility] [address] [place] [address] [place] ALT [Catalytic activity/Vol] 23 U/L Normal 7-52 [facility] Comment on above: Performed By: #### C BC CMP, PAB #### [place] [address] [place] AST [Catalytic activity/Vol] 30 U/L Normal 13-39 [facility] Comment on above: Performed By: #### C BC, CMP, PAB #### [place] [address] [place] Bilirubin [Mass/Vol] 0.6 mg/dL Normal 0.3-1.0 [facility] Comment on above: Performed By: #### C BC, CMP, PAB #### [facility] [address] Bilirubin,Indirect 0.5 mg/dL Normal [facility] Comment on above: Performed By: #### C BC, CMP, PAB #### [facility] [address] Bilirubin.indirect [Mass/Vol] 0.10 mg/dL Normal 0.03-0.18 [facility] Comment on above: Performed By: #### C BC, CMP, PAB #### [facility] [address] Globulin (S) [Mass/Vol] 2.2 g/dL Normal F [facility] Comment on above: Performed By: #### C BC, CMP, PAB #### [facility] [address] Protein [Mass/Vol] 6.6 g/dL Normal 6.4-8.9 [facility] Comment on above: Performed By: #### C BC, CMP, PAB #### [facility] [address] Leukocytes [#/volume] correc kevin for nucleated erythrocytes in Blood by Automated counOrdered By: Leonel Aguirre on 04-05-2023 WBC corrected for nucl RBC Auto (Bld) [#/Vol] 8.3 10*3/uL 3.8-11.6 [facility] Lymphocytes Auto (Bld) [#/Vo l]Ordered By: Leonel Aguirre on 04-05-2023 Lymphocytes (Bld) [#/Vol] 1.3 10*3/uL 1.00-4.8 [facility] Lymphocytes/100 WBC Auto (Bl d)Ordered By: Leonel Aguirre on 04-05-2023 Lymphocytes/100 WBC (Bld) 16.1 % . [facility] MCH Auto (RBC) [Entitic mass ]Ordered By: Leonel Aguirre on 04-05-2023 MCH (RBC) [Entitic mass] 32.7 pg 24.7-34.3 [facility] MCHC Auto (RBC) [Mass/Vol]Or dered By: Leonel Aguirre on 04-05-2023 MCHC (RBC) [Mass/Vol] 33.3 g/dL 32.0-35.0 [facility] MCV Auto (RBC) [Entitic vol] Ordered By: Leonel Aguirre on 04-05-2023 MCV (RBC) [Entitic vol] 98.3 fL 80-100 F [facility] Monocytes Auto (Bld) [#/Vol] Ordered By: Leonel Aguirre on 04-05-2023 Monocytes (Bld) [#/Vol] 0.4 10*3/uL 0.0-0.8 [facility] Monocytes/100 WBC Auto (Bld) Ordered By: Leonel Aguirre on 04-05-2023 Monocytes/100 WBC (Bld) 5.1 % . F [facility] Neutrophils Auto (Bld) [#/Vo l]Ordered By: Leonel Aguirre on 04-05-2023 Neutrophils (Bld) [#/Vol] 6.5 10*3/uL 1.8-7.7 [facility] Neutrophils/100 WBC Auto (Bl d)Ordered By: Leonel Aguirre on 04-05-2023 Neutrophils/100 WBC (Bld) 78.1 % . [facility] No Panel InformationOrdered By: Leonel Aguirre on 04-05-2023 Estimated GFR (CKD-EPI) 58.728 mL/Min [facility] Pharmacy Creatinine Clearance (Chem N/A [facility] Nucleated erythrocytes [Pres ence] in Blood by Automated countOrdered By: Leonel Aguirre on 04-05-2023 Nucleated RBC Auto Ql (Bld) 0.1 /100{WBC} 0-0.5 [facility] Platelet mean volume Auto (B ld) [Entitic vol]Ordered By: Leonel Aguirre on 04-05-2023 Platelet mean volume (Bld) [Entitic vol] 8.2 fL 6.3-10.7 [facility] Platelets Auto (Bld) [#/Vol] Ordered By: Leonel Aguirre on 04-05-2023 Platelets (Bld) [#/Vol] 194 10*3/uL 150-450 [facility] Protein [Mass/volume] in Ser um or PlasmaOrdered By: Leonel Aguirre on 04-05-2023 Protein [Mass/Vol] 6.6 g/dL 6.4-8.9 [facility] RBC Auto (Bld) [#/Vol]Ordere d By: Leonel Aguirre on 04-05-2023 RBC (Bld) [#/Vol] 3.38 10*6/uL 3.60-5.00 [facility] Serum or plasma albumin/glob ulin mass ratioOrdered By: Leonel Aguirre on 04-05-2023 Albumin/Globulin [Mass ratio] 2.0 {ratio} [facility] Serum or plasma non-glucuron idated bilirubin measurement (mass/volume)Ordered By: Leonel Aguirre on 04-05-2023 Bilirubin.indirect [Mass/Vol] 0.5 mg/dL [facility] WBC Auto (Bld) [#/Vol]Ordere d By: Leonel Aguirre on 04-05-2023 WBC (Bld) [#/Vol] 8.3 10*3/uL 3.8-11.6 [facility] CNOVon 03-06-2023 CNOV Office Visit (AIDAN ) -- KIKI MOORE ([id number]) 1945 F Date Time Provider Department 03/06/23 9:30 AM SHAN BOX During your visit today, we recorded the following information about you: Referring Provider: SELF [200] Allergies As of Date: 03/06/2023 Noted Allergy Reaction CELEBREX (CELECOXIB) 08/21/2006 4 - Hives 7 - Swelling VIOXX (ROFECOXIB) 08/21/2006 3 - Cough Comments: states she had extreme dry mouth GABAPENTIN 11/12/2014 14 - Other: See Comments Comments: Syncope with fall Date Reviewed: 03/06/2023 Reviewed by: Shan Box MD - Fully Assessed Reason for Visit: Established Patient [175] Follow Up [171] Post Op [174] Knee Replacement [363] Primary Visit Diagnosis:S/P total knee replacement, left (01/17/2023) [Z96.652] Prescriptions as of 03/06/2023 - acetaminophen (TYLENOL) 500 mg tablet Take 2 tablets by mouth every 8 hours. - ALPHAGAN P 0.1 % EYE DROPS one drop each eye daily - aspirin, enteric coated (ECOTRIN LOW STRENGTH) 81 mg EC tablet Take 1 tablet by mouth once daily. - Cholecalciferol, Vitamin D3, (VITAMIN D-3) 50 mcg (2,000 unit) cap Take 1 capsule by mouth once daily. - clindamycin (CLEOCIN) 300 mg capsule Take 1 tablet by mouth 1 hour prior to procedure and 1 tablet by mouth 6 hours after procedure - docusate sodium (COLACE) 100 mg capsule Take 1 capsule by mouth twice daily as needed for constipation. - FOLIC ACID 1 MG TAB Take four tablets po every Monday - furosemide (LASIX) 20 mg tablet Take 20 mg by mouth every morning. - hydrOXYchloroQUINE (PLAQUENIL) 200 mg tablet Take 200 mg by mouth twice daily with meals. - latanoprost (XALATAN) 0.005 % ophthalmic solution 1 Drop daily at bedtime. - lisinopril (ZESTRIL) 40 mg tablet Take 1 tablet by mouth once daily. - methotrexate 2.5 mg tablet Take 1 tablet by mouth every Monday. 6 tablets ONCE WEEKLY - oxyCODONE IR (ROXICODONE) 5 mg immediate release tablet take 1 every 6 hours as needed for pain not relieved with Tylenol - predniSONE (DELTASONE) 5 mg tablet Take 1 tablet by mouth as needed (daily only as needed for arthritis pain). 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16] 12/23/2014 Lumbar stenosis with neurogenic claudication [M*12/23/2014 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 Stroke ([facility]) [I63.9] DVT of popliteal vein ([facility]) [I82.439] S/P patent foramen ovale closure [Z87.74] 12/23/2022 Hypertension [I10] Pulmonary hypertension ([facility]) [I27.20] 06/28/2016 Primary osteoarthritis of left knee [M17.12] 12/23/2022 Obesity, Class I, BMI 30-34.9 [E66.9] 01/16/2023 Status post total left knee replacement [Z96.65*01/17/2023 KAMI (acute kidney injury) ([facility]) [N17.9] 01/18/2023 01/19/2023 Hyponatremia [E87.1] 01/18/2023 Hyperkalemia [E87.5] 01/18/2023 01/19/2023 S/P total knee replacement, left [Z96.652] 01/18/2023 Hypomagnesemia [E83.42] 01/19/2023 01/19/2023 Encounter Status:Closed by SHAN BOX II on 03/06/23 Normal [facility] Basic Metabolic Panelon 09-2 Anion gap [Moles/Vol] 10.6 mmol/L Normal 6.0-15.0 [facility] Comment on above: Performed By: #### B MP ####[address] [place] [address] [place] Calcium [Mass/Vol] 8.6 mg/dL Normal 8.6-10.3 [facility] Comment on above: Performed By: #### B MP ####[address] [place] [address] [place] Chloride [Moles/Vol] 100 mmol/L Normal 98-107 [facility] Comment on above: Performed By: #### B MP ####[address] [address] [place] CO2 [Moles/Vol] 25.0 mmol/L Normal 21.0-31.0 [facility] Comment on above: Performed By: #### B MP ####[address] [address] [facility] Creatinine [Mass/Vol] 0.99 mg/dL Normal 0.60-1.20 [facility] Comment on above: Performed By: #### B MP ####[address] [place] [address] [place] Creatinine Clr Calc Pharmacy 45.35 Normal [facility] Comment on above: Result Comment: PERF ORMED BY: [facility] [address] [place] [address] PATHOLOGIST ENRICHMENT DIRECTOR KWADWO PULIDO M.D. Performed By: #### B MP ####[address] [place] [address] [place] GFR/1.73 sq M.predicted MDRD (S/P/Bld) [Vol rate/Area] 58.728 mL/min/{1.73_m2} Normal [facility] Comment on above: Performed By: #### B MP ####[address] [place] [id number] [facility] Glucose [Mass/Vol] 135 mg/dL High 70-100 [facility] Comment on above: Result Comment: [place] Glucose Reference Range is dependent on time and content of last meal. Glucose of more than 200 mg/dL in a nonstressed, ambulatory subject supports the diagnosis of Diabetes Mellitus. ADA recommended reference range Performed By: #### B MP ####[address] [place] [id number] [facility] Potassium [Moles/Vol] 4.6 mmol/L Normal 3.5-5.1 [facility] Comment on above: Performed By: #### B MP ####[address] [id number] [facility] Sodium [Moles/Vol] 131 mmol/L Low 136-145 [facility] Comment on above: Performed By: #### B MP ####[address] [place] [id number] [facility] Urea nitrogen [Mass/Vol] 21 mg/dL Normal 7-25 [facility] Comment on above: Performed By: #### B MP ####[address] [address] [facility] CNOVon 02-10-2023 CNOV Office Visit (LOORRM ) -- KIKI MOORE ([id number]) 1945 F Date Time Provider Department 02/10/23 10:30 AM JUDIT JARRELL During your visit today, we recorded the following information about you: Judit Jarrell PA-C 02/14/2023 4:10 PM Signed Ortho Knee Follow Up Note Narrative Referring Provider: SELF PCP: MAINE Arias PA-C == IMPRESSION/PLAN: == 78 year old s/p Left Total Knee Replacement completed on 01/17/2023. Recent Surgeries this specialty 01/17/2023 (3w, 3d) ARTHROPLASTY REPLACE JOINT TOTAL KNEE AIDA (Left) Shan Box MD - Posted 02/24/2015 (8yr) ARTHROPLASTY REPLACE JOINT TOTAL HIP (Left) Syd Sutton Jr., MD - Posted 01/13/2015 (8yr) FLUOROSCOPIC PLACEMENT NEEDLE FOR ASPIRATION; INJECT HIP LEFT (Left; Left) Syd Sutton Jr., MD - Posted 06/25/2014 (8yr) REVISION JOINT TOTAL HIP BOTH COMPONENTS (Right) Syd Sutton Jr., MD - Posted PAIN EVALUATION 02/10/2023 1035 Pain Level: 7 Pain Location: Knee-Left Description: Aching;Sore Duration Amount of Time: 3 Duration Units: Weeks Frequency: Intermittent Intervention/Comfort measure: Reposition;Relaxation;Posi tioning;Medication;Cold IMPRESSION: Excellent early outcome At normal post-operative stage of recovery. PLAN: No new treatment indicated: Routine follow-up and Continue physical therapy. Continue current conservative treatment. Planning to discharge home tomorrow from the rehab facility. Discussed the importance of walking regularly for exercise to build her stamina. Patient Reassurance: Normal post-operative course discussed with patient. Progress appears to be with the normal speed of recovery. Patient reassured and supported. All questions answered. 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 Oa (Osteoarthritis) Glaucoma Obesity, Class II, BMI 38.47 Rheumatoid arthritis Postoperative Anemia Due to Acute Blood Loss Thoracic Or Lumbosacral Neuritis Or Radiculitis, Unspecified Lumbosacral Spondylosis Without Myelopathy History of Spinal Surgery Obesity Snoring Back Pain Ra (Rheumatoid Arthritis) ([facility]) Arthritis of Left Hip Spondylolisthesis of Lumbar Region 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 Stroke ([facility]) Dvt of Popliteal Vein ([facility]) S/P Patent Foramen Ovale Closure Hypertension Pulmonary Hypertension ([facility]) Primary Osteoarthritis of Left Knee Obesity, Class I, Bmi 30-34.9 Status Post Total Left Knee Replacement Hyponatremia S/P Total Knee Arthroplasty, Left Status post op: BMI: There is no height or weight on file to calculate BMI. Post-operative recovery was complicated by uneventful/none. Readmission(s) since surgery (90 days post)? No ED Visits AND Hospitalizations - Last 180 days 01/17/23 Shan Box MD, AV5W Acute post-operative pain, Admission (Discharged) Patient rates their condition as improving. Does the patient still experience pain? Yes, intermittent pain that can be aching and sore, up to a 7/10. Post Op discharge patient location: at a rehab facility. Functional Assessment is as follows: remains in rehabilitation facility. Functional difficulties: Interferes with sleep, Prolonged standing, and Arising from chair. Pain Medication: Narcotic and Non-narcotic Current Opioids Analgesic Opioid Agonists Start End oxyCODONE IR (ROXICODONE) 5 mg immediate release tablet 01/19/2023 -- Sig: Take 0.5 - 1 tablets by mouth every 4-6 hours as needed for pain. Class: Med Update Earliest Fill Date: 01/19/2023 Currently Ambulating with: Patient arrives on gurney from rehab facility. Physical Therapy Data 02/24/2015 02/27/2015 Therapist that will oversee plan of care katerine Shook, PT ======= EXAM: POST OP KNEE ======= Left Post-Operative Knee Ambulates with a: Ambulates at the rehab facility with her walker SKIN: Appropriate postop appearance, No evidence of erythema, warmth, discharge or drainage, and Incision intact. Range of motion is lacking a few degrees secondary to tight hamstrings degrees in extension and 90 degrees of flexion. Extension La degrees Pain with ROM:No There is Mild effusion. Mal-alignment: No Tender to the palpation of mild global tenderness Ne (more content not included)... Normal [facility] Calcium [Mass/volume] in Ser um or PlasmaOrdered By: Syd Muir on 02-10-2023 Calcium [Mass/Vol] 8.6 mg/dL 8.6-10.3 [facility] Carbon dioxide, total [Moles /volume] in Serum or PlasmaOrdered By: Syd Muir on 02-10-2023 CO2 [Moles/Vol] 25.0 mmol/L 21.0-31.0 [facility] Chloride [Moles/volume] in S shanti or PlasmaOrdered By: Syd Muir on 02-10-2023 Chloride [Moles/Vol] 100 mmol/L 98-107 [facility] Creatinine [Mass/volume] in Serum or PlasmaOrdered By: Syd Muir on 02-10-2023 Creatinine [Mass/Vol] 0.99 mg/dL 0.60-1.20 [facility] Glucose [Mass/volume] in Ser um or PlasmaOrdered By: Syd Muir on 02-10-2023 Glucose [Mass/Vol] 135 mg/dL 70-100 [facility] Comment on above: ADA recommended refe rence rangeRandom Glucose Reference Range is dependent on time and content of last meal. Glucose of more than 200 mg/dL in a nonstressed, ambulatory subject supports the diagnosis of Diabetes Mellitus. No Panel InformationOrdered By: Syd Muir on 02-10-2023 Estimated GFR (CKD-EPI) 58.728 mL/Min [facility] Creatinine Clearance (Chem 45.35 [facility] Potassium [Moles/volume] in Serum or PlasmaOrdered By: Syd Muir on 02-10-2023 Potassium [Moles/Vol] 4.6 mmol/L 3.5-5.1 [facility] Serum or plasma anion gap de terminationOrdered By: Syd Wood on 02-10-2023 Anion gap [Moles/Vol] 10.6 mmol/L 6.0-15.0 [facility] Sodium [Moles/volume] in Ser um or PlasmaOrdered By: Syd Wood on 02-10-2023 Sodium [Moles/Vol] 131 mmol/L 136-145 [facility] Urea nitrogen [Mass/volume] in Serum or PlasmaOrdered By: Syd Muir on 02-10-2023 Urea nitrogen [Mass/Vol] 21 mg/dL 7-25 [facility] XR KNEE 3V AP/LAT/MERCHANT L Ton 02-10-2023 XR KNEE 3V AP/LAT/MERCHANT LT * * *Final Report* * * DATE OF EXAM: Feb 10 2023 10:32AM LZX [id number] - XR KNEE 3V AP/LAT/MERCHANT LT / PROCEDURE REASON: S/P total knee replacement, left * * * * Physician Interpretation * * * * EXAMINATION / TECHNIQUE: XR KNEE 3V AP/LAT/MERCHANT LT PATIENT/TECHNOLOGIST PROVIDED HISTORY: post op left knee CLINICAL INFORMATION ( PROVIDED BY ORDERING CLINICIAN) : S/P total knee replacement, left COMPARISON: RESULT: Left total knee semiconstrained arthroplasty with patellar resurfacing. There is no periprosthetic fracture or lucency. No acute fracture or dislocation. No malalignment. Anterior knee soft tissue swelling. Resolution of postoperative soft tissue gas. IMPRESSION: Arthroplasty without complication Polisher And Buffer: MAGDALENE Transcribe Date/Time: Feb 10 2023 11:26A Dictated by : LEE PAGE MD This examination was interpreted and the report reviewed and electronically signed by: LEE PAGE MD on Feb 10 2023 11:30AM EST [id number] Normal [facility] US venous duplex LE LTon US venous duplex LE LT [facility] [place] [address] Ultrasound Report Signed Patient: Kiki Moore MR#: [id number] [birth year] : 1945 Acct:[id number] Age/Sex: 78 / F ADM Date: 01/31/23 Loc: Room: 1K5063-7 Type: ADM IN Attending Dr: Syd Muir MD Ordering Provider: Syd Muir MD Date of Service: 02/08/23 US/US venous duplex LE LT: increased pain/swelling Copies to: Syd Muir MD LEFT LOWER EXTREMITY VENOUS DUPLEX INDICATION: Left lower extremity edema pain and tenderness. Comparison study: Negative left lower extremity venous duplex evaluation of January 2023. Unilateral left lower extremity venous duplex Doppler study was obtained utilizing B-mode, color- flow and spectral Doppler. FINDINGS: The left common femoral, femoral, and popliteal veins showed adequate compressibility, color-flow and augmentation. The left posterior tibial and peroneal veins were compressible, as well as proximal greater saphenous vein. The contralateral right common femoral vein was compressible with color-flow and augmentation. US/US venous duplex LE LT IMPRESSION: NO EVIDENCE OF DEEP VENOUS THROMBOSIS IN THE LEFT LOWER EXTREMITY. NO SUPERFICIAL THROMBOPHLEBITIS WAS NOTED. Possible left popliteal fossa Delgado's cyst identified. Impression dictated by: Arvind James MD02/09/2023 3:03 PM Dictation Location: [place] [address] Tech: Chelsy Miguelina Transcribed By: [facility] 02/09/23 1503 Dictated By: Arvind James MD 02/09/23 1503 Signed By: 02/09/23 1503 Normal [facility] Basophils Auto (Bld) [#/Vol] Ordered By: Sofya Petit on 02-07-2023 Basophils (Bld) [#/Vol] 0.0 10*3/uL 0.0-0.2 [facility] Basophils/100 WBC Auto (Bld) Ordered By: Sofya Petit on 02-07-2023 Basophils/100 WBC (Bld) 0.4 % . [facility] Complete Blood Count Auto Di ffon 02-07-2023 Basophils (Bld) [#/Vol] 0.0 10*3/uL Normal 0.0-0.2 [facility] Comment on above: Result Comment: PERF ORMED BY: [facility] [address] [place] [address] PATHOLOGIST ENRICHMENT DIRECTOR KWADWO PULIDO M.D. Performed By: #### C BC ####[place] [id number] [facility] Basophils/100 WBC (Bld) 0.4 % Normal . [facility] Comment on above: Performed By: #### C BC ####[place] [id number] [facility] Eosinophils (Bld) [#/Vol] 0.1 10*3/uL Normal 0.0-0.45 [facility] Comment on above: Performed By: #### C BC ####[place] [id number] [facility] Eosinophils/100 WBC (Bld) 0.8 % Normal . [facility] Comment on above: Performed By: #### C BC ####[address] Erythrocyte distribution width (RBC) [Ratio] 16.0 % High 11.9-15.3 [facility] Comment on above: Performed By: #### C BC ####[place] [id number] [facility] Hematocrit (Bld) [Volume fraction] 27.0 % Low 34.0-46.4 [facility] Comment on above: Performed By: #### C BC ####[place] [id number] [facility] Hemoglobin (Bld) [Mass/Vol] 9.1 g/dL Low 11.8-15.4 [facility] Comment on above: Performed By: #### C BC ####[place] [id number] [facility] Lymphocytes (Bld) [#/Vol] 1.4 10*3/uL Normal 1.00-4.8 [facility] Comment on above: Performed By: #### C BC ####[place] [id number] [facility] Lymphocytes/100 WBC (Bld) 17.4 % Normal . [facility] Comment on above: Performed By: #### C BC ####[address] [address] [facility] MCH (RBC) [Entitic mass] 33.4 pg Normal 24.7-34.3 [facility] Comment on above: Performed By: #### C BC ####[address] [address] [facility] MCV (RBC) [Entitic vol] 99.2 fL Normal 80-100 [facility] Comment on above: Performed By: #### C BC ####[address] [address] [facility] Mean Corpuscular HGB Conc 33.7 g/dL Normal 32.0-35.0 [facility] Comment on above: Performed By: #### C BC ####[address] [address] [facility] Monocytes (Bld) [#/Vol] 1.2 10*3/uL High 0.0-0.8 [facility] Comment on above: Performed By: #### C BC ####[address] [address] [facility] Monocytes/100 WBC (Bld) 15.5 % Normal . [facility] Comment on above: Performed By: #### C BC ####[address] [address] [facility] Neutrophils (Bld) [#/Vol] 5.2 10*3/uL Normal 1.8-7.7 [facility] Comment on above: Performed By: #### C BC ####[address] [address] [facility] Neutrophils/100 WBC (Bld) 65.9 % Normal . [facility] Comment on above: Performed By: #### C BC ####[address] [address] [facility] NRBC% 0.1 /100{WBC} Normal 0-0.5 [facility] Comment on above: Performed By: #### C BC ####[address] [place] [address] [place] Platelet mean volume (Bld) [Entitic vol] 7.0 fL Normal 6.3-10.7 [facility] Comment on above: Performed By: #### C BC ####[address] Platelets (Bld) [#/Vol] 213 10*3/uL Normal 150-450 [facility] Comment on above: Performed By: #### C BC ####[address] RBC (Bld) [#/Vol] 2.72 10*6/uL Low 3.60-5.00 [facility] Comment on above: Performed By: #### C BC ####[address] WBC (Bld) [#/Vol] 8.0 10*3/uL Normal 3.8-11.6 [facility] Comment on above: Performed By: #### C BC ####[address] Eosinophils Auto (Bld) [#/Vo l]Ordered By: Sofya Petit on 02-07-2023 Eosinophils (Bld) [#/Vol] 0.1 10*3/uL 0.0-0.45 [facility] Eosinophils/100 WBC Auto (Bl d)Ordered By: Sofya Petit on 02-07-2023 Eosinophils/100 WBC (Bld) 0.8 % . [facility] Erythrocyte distribution wid th Auto (RBC) [Ratio]Ordered By: Sofya Petit on 02-07-2023 Erythrocyte distribution width (RBC) [Ratio] 16.0 % 11.9-15.3 [facility] Hematocrit Auto (Bld) [Volum e fraction]Ordered By: Sofya Petit on 02-07-2023 Hematocrit (Bld) [Volume fraction] 27.0 % 34.0-46.4 [facility] Hemoglobin [Mass/volume] in BloodOrdered By: Sofya Petit on 09-19-2023 Hemoglobin (Bld) [Mass/Vol] 9.1 g/dL 11.8-15.4 [facility] Leukocytes [#/volume] correc kevin for nucleated erythrocytes in Blood by Automated counOrdered By: Sofya Petit on 02-07-2023 WBC corrected for nucl RBC Auto (Bld) [#/Vol] 8.0 10*3/uL 3.8-11.6 [facility] Lymphocytes Auto (Bld) [#/Vo l]Ordered By: Sofya Petit on 02-07-2023 Lymphocytes (Bld) [#/Vol] 1.4 10*3/uL 1.00-4.8 [facility] Lymphocytes/100 WBC Auto (Bl d)Ordered By: Sofya Petit on 02-07-2023 Lymphocytes/100 WBC (Bld) 17.4 % . [facility] MCH Auto (RBC) [Entitic mass ]Ordered By: Sofya Petit on 02-07-2023 MCH (RBC) [Entitic mass] 33.4 pg 24.7-34.3 [facility] MCHC Auto (RBC) [Mass/Vol]Or dered By: Sofya Petit on 02-07-2023 MCHC (RBC) [Mass/Vol] 33.7 g/dL 32.0-35.0 [facility] MCV Auto (RBC) [Entitic vol] Ordered By: Sofya Petit on 02-07-2023 MCV (RBC) [Entitic vol] 99.2 fL 80-100 [facility] Monocytes Auto (Bld) [#/Vol] Ordered By: Sofya Petit on 02-07-2023 Monocytes (Bld) [#/Vol] 1.2 10*3/uL 0.0-0.8 [facility] Monocytes/100 WBC Auto (Bld) Ordered By: Sofya Petit on 02-07-2023 Monocytes/100 WBC (Bld) 15.5 % . [facility] Neutrophils Auto (Bld) [#/Vo l]Ordered By: Sofya Petit on 02-07-2023 Neutrophils (Bld) [#/Vol] 5.2 10*3/uL 1.8-7.7 [facility] Neutrophils/100 WBC Auto (Bl d)Ordered By: Sofya Petit on 02-07-2023 Neutrophils/100 WBC (Bld) 65.9 % . [facility] Nucleated erythrocytes [Pres ence] in Blood by Automated countOrdered By: Sofya Petit on 02-07-2023 Nucleated RBC Auto Ql (Bld) 0.1 /100{WBC} 0-0.5 [facility] Platelet mean volume Auto (B ld) [Entitic vol]Ordered By: Sofya Petit on 02-07-2023 Platelet mean volume (Bld) [Entitic vol] 7.0 fL 6.3-10.7 [facility] Platelets Auto (Bld) [#/Vol] Ordered By: Sofya Petit on 02-07-2023 Platelets (Bld) [#/Vol] 213 10*3/uL 150-450 [facility] RBC Auto (Bld) [#/Vol]Ordere d By: Sofya Petit on 02-07-2023 RBC (Bld) [#/Vol] 2.72 10*6/uL 3.60-5.00 [facility] WBC Auto (Bld) [#/Vol]Ordere d By: Sofya Petit on 02-07-2023 WBC (Bld) [#/Vol] 8.0 10*3/uL 3.8-11.6 [facility] Fecal occult blood detection by immunochemistryOrdered By: Ivy Gannon on 02-06-2023 Hemoglobin.gastrointest inal Ql (Stl) [facility] Fecal occult blood detection by immunochemistryOrdered By: Ivy Thomas on 02-06-2023 Hemoglobin.gastrointest inal Ql (Stl) [facility] Stool Occult Blood (Guaiac)o n 02-06-2023 Stool Occult Blood (Guaiac) Occult Blood Negative for Occult Blood by Guaiac Methodology -- Reference range = Negative PERFORMED BY: [facility] [address] [place] [address] PATHOLOGIST ENRICHMENT DIRECTOR KWADWO PULIDO M.D. Normal [facility] Comment on above: Performed By: #### O B(GUAIAC) ####[address] Complete Blood Count Auto Di ffon 02-04-2023 Basophils (Bld) [#/Vol] 0.0 10*3/uL Normal 0.0-0.2 [facility] Comment on above: Result Comment: PERF ORMED BY: [facility] [address] [place] [address] PATHOLOGIST ENRICHMENT DIRECTOR KWADWO PULIDO M.D. Performed By: #### C BC ####[address] Basophils/100 WBC (Bld) 0.5 % Normal . [facility] Comment on above: Performed By: #### C BC ####[address] Eosinophils (Bld) [#/Vol] 0.2 10*3/uL Normal 0.0-0.45 [facility] Comment on above: Performed By: #### C BC ####[address] Eosinophils/100 WBC (Bld) 2.9 % Normal . [facility] Comment on above: Performed By: #### C BC ####[address] Erythrocyte distribution width (RBC) [Ratio] 14.7 % Normal 11.9-15.3 [facility] Comment on above: Performed By: #### C BC ####[place] [id number] [facility] Hematocrit (Bld) [Volume fraction] 25.4 % Low 34.0-46.4 [facility] Comment on above: Performed By: #### C BC ####[place] [id number] [facility] Hemoglobin (Bld) [Mass/Vol] 8.7 g/dL Low 11.8-15.4 [facility] Comment on above: Performed By: #### C BC ####[address] Lymphocytes (Bld) [#/Vol] 1.1 10*3/uL Normal 1.00-4.8 [facility] Comment on above: Performed By: #### C BC ####[address] Lymphocytes/100 WBC (Bld) 17.4 % Normal . [facility] Comment on above: Performed By: #### C BC ####[address] MCH (RBC) [Entitic mass] 33.5 pg Normal 24.7-34.3 [facility] Comment on above: Performed By: #### C BC ####[address] MCV (RBC) [Entitic vol] 98.3 fL Normal 80-100 [facility] Comment on above: Performed By: #### C BC ####[address] Mean Corpuscular HGB Conc 34.0 g/dL Normal 32.0-35.0 [facility] Comment on above: Performed By: #### C BC ####[address] Monocytes (Bld) [#/Vol] 0.9 10*3/uL High 0.0-0.8 [facility] Comment on above: Performed By: #### C BC ####[address] Monocytes/100 WBC (Bld) 14.2 % Normal . [facility] Comment on above: Performed By: #### C BC ####[address] Neutrophils (Bld) [#/Vol] 4.1 10*3/uL Normal 1.8-7.7 [facility] Comment on above: Performed By: #### C BC ####[place] [id number] [facility] Neutrophils/100 WBC (Bld) 65.0 % Normal . [facility] Comment on above: Performed By: #### C BC ####[place] [id number] [facility] NRBC% 0.1 /100{WBC} Normal 0-0.5 [facility] Comment on above: Performed By: #### C BC ####[place] [id number] [facility] Platelet mean volume (Bld) [Entitic vol] 6.6 fL Normal 6.3-10.7 [facility] Comment on above: Performed By: #### C BC ####[place] [id number] [facility] Platelets (Bld) [#/Vol] 235 10*3/uL Normal 150-450 [facility] Comment on above: Performed By: #### C BC ####[place] [id number] [facility] RBC (Bld) [#/Vol] 2.58 10*6/uL Low 3.60-5.00 [facility] Comment on above: Performed By: #### C BC ####[place] [id number] [facility] WBC (Bld) [#/Vol] 6.3 10*3/uL Normal 3.8-11.6 [facility] Comment on above: Performed By: #### C BC ####[place] [id number] [facility] Complete Blood Count Auto Di ffon 02-03-2023 Basophils (Bld) [#/Vol] 0.0 10*3/uL Normal 0.0-0.2 [facility] Comment on above: Result Comment: PERF ORMED BY: [facility] [address] [place] [address] PATHOLOGIST ENRICHMENT DIRECTOR KWADWO PULIDO M.D. Performed By: #### C BC, CMP, PAB #### [facility] [address] [place] [address] [place] Basophils/100 WBC (Bld) 0.5 % Normal . [facility] Comment on above: Performed By: #### C BC, CMP, PAB #### [facility] [address] [place] [address] [place] Eosinophils (Bld) [#/Vol] 0.2 10*3/uL Normal 0.0-0.45 [facility] Comment on above: Performed By: #### C BC, CMP, PAB #### [facility] [address] [place] [address] [place] Eosinophils/100 WBC (Bld) 3.4 % Normal . [facility] Comment on above: Performed By: #### C BC, CMP, PAB #### [address] Erythrocyte distribution width (RBC) [Ratio] 15.0 % Normal 11.9-15.3 [facility] Comment on above: Performed By: #### C BC, CMP, PAB #### [address] Hematocrit (Bld) [Volume fraction] 26.9 % Low 34.0-46.4 [facility] Comment on above: Performed By: #### C BC, CMP, PAB #### [facility] [address] [place] [address] [place] Hemoglobin (Bld) [Mass/Vol] 9.4 g/dL Low 11.8-15.4 [facility] Comment on above: Performed By: #### C BC, CMP, PAB #### [facility] [address] [place] [address] [place] Lymphocytes (Bld) [#/Vol] 1.2 10*3/uL Normal 1.00-4.8 [facility] Comment on above: Performed By: #### C BC, CMP, PAB #### [place] [address] [place] Lymphocytes/100 WBC (Bld) 18.6 % Normal . [facility] Comment on above: Performed By: #### C BC, CMP, PAB #### [address] MCH (RBC) [Entitic mass] 34.3 pg Normal 24.7-34.3 [facility] Comment on above: Performed By: #### C BC, CMP, PAB #### [address] MCV (RBC) [Entitic vol] 98.5 fL Normal 80-100 [facility] Comment on above: Performed By: #### C BC, CMP, PAB #### [address] Mean Corpuscular HGB Conc 34.9 g/dL Normal 32.0-35.0 [facility] Comment on above: Performed By: #### C BC, CMP, PAB #### [address] Monocytes (Bld) [#/Vol] 0.8 10*3/uL Normal 0.0-0.8 [facility] Comment on above: Performed By: #### C BC, CMP, PAB #### [address] Monocytes/100 WBC (Bld) 12.3 % Normal . [facility] Comment on above: Performed By: #### C BC, CMP, PAB #### [address] Neutrophils (Bld) [#/Vol] 4.4 10*3/uL Normal 1.8-7.7 [facility] Comment on above: Performed By: #### C BC, CMP, PAB #### [address] Neutrophils/100 WBC (Bld) 65.2 % Normal . [facility] Comment on above: Performed By: #### C BC, CMP, PAB #### [place] [address] [place] NRBC% 0.1 /100{WBC} Normal 0-0.5 [facility] Comment on above: Performed By: #### C MEGGAN NORTON, PAB #### [address] Platelet mean volume (Bld) [Entitic vol] 6.8 fL Normal 6.3-10.7 [facility] Comment on above: Performed By: #### C BC, CMP, PAB #### [address] Platelets (Bld) [#/Vol] 259 10*3/uL Normal 150-450 [facility] Comment on above: Performed By: #### C MEGGAN NORTON, PAB #### [address] RBC (Bld) [#/Vol] 2.73 10*6/uL Low 3.60-5.00 [facility] Comment on above: Performed By: #### C BC, CMP, PAB #### [address] WBC (Bld) [#/Vol] 6.7 10*3/uL Normal 3.8-11.6 [facility] Comment on above: Performed By: #### C BC CMP, PAB #### [address] Absolute reticulocyte countO rdered By: Will Brown on 02-02-2023 Reticulocytes (Bld) [#/Vol] 0.063 10*6/uL 0.024-0.08 4 [facility] [employer] Sendou ton 02-02-2023 [employer] [employer] [facility] Sendout Sent to [facility] Comment on above: Order Comment: Patho logist Dr. Rosado and patients attending Dr. Muir decided not to other STAT, patients HGB 6.6 but stable. Please work up first thing in the morning 02/02/23. Result Comment: Sent to [facility] for further testing. Final report to follow. PERFORMED BY: [place] [phone] PATHOLOGIST ENRICHMENT DIRECTOR KWADWO PULIDO M.D. Antibody Identificationon Antibody Identification HTLA Normal [facility] Comment on above: Result Comment: Test ing performed and reported by [facility] Reference Lab Basic Metabolic Panelon 01-20 Anion gap [Moles/Vol] 8.8 mmol/L Normal 6.0-15.0 [facility] Comment on above: Performed By: #### H APT, RETIC #### [facility] [address] [place] [address] [place] Calcium [Mass/Vol] 8.6 mg/dL Normal 8.6-10.3 [facility] Comment on above: Performed By: #### H APT, RETIC #### [place] [address] [place] Chloride [Moles/Vol] 100 mmol/L Normal 98-107 [facility] Comment on above: Performed By: #### H APT, RETIC #### [place] [address] [place] CO2 [Moles/Vol] 25.1 mmol/L Normal 21.0-31.0 [facility] Comment on above: Performed By: #### H APT, RETIC #### [place] [address] [place] Creatinine [Mass/Vol] 1.14 mg/dL Normal 0.60-1.20 [facility] Comment on above: Performed By: #### H APT, RETIC #### [facility] [address] [place] [address] [place] Creatinine Clr Calc Pharmacy 39.82 [facility] Comment on above: Performed By: #### H APT, RETIC #### [place] [address] [place] GFR/1.73 sq M.predicted MDRD (S/P/Bld) [Vol rate/Area] 49.582 mL/min/{1.73_m2} [facility] Comment on above: Performed By: #### H APT, RETIC #### [address] [place] [address] [place] Glucose [Mass/Vol] 92 mg/dL Normal 70-100 [facility] Comment on above: Result Comment: [place] Glucose Reference Range is dependent on time and content of last meal. Glucose of more than 200 mg/dL in a nonstressed, ambulatory subject supports the diagnosis of Diabetes Mellitus. ADA recommended reference range Performed By: #### H APT, RETIC #### [facility] [address] Potassium [Moles/Vol] 3.9 mmol/L Normal 3.5-5.1 [facility] Comment on above: Performed By: #### H APT, RETIC #### [facility] [address] Sodium [Moles/Vol] 130 mmol/L Low 136-145 [facility] Comment on above: Performed By: #### H APT, RETIC #### [address] Urea nitrogen [Mass/Vol] 16 mg/dL Normal 7-25 [facility] Comment on above: Performed By: #### H APT, RETIC #### [facility] [address] [place] [address] Blood Bank Pathologist Lulu gallagher 02-02-2023 Blood Bank Pathologist Review Sent to Pathology Normal [facility] Comment on above: Result Comment: PERF ORMED BY: [place] [address] PATHOLOGIST ENRICHMENT DIRECTOR KWADWO PULIDO M.D. Complete Blood Count Auto Di ffon 02-02-2023 Basophils (Bld) [#/Vol] 0.0 10*3/uL Normal 0.0-0.2 [facility] Comment on above: Result Comment: PERF ORMED BY: [place] [address] PATHOLOGIST ENRICHMENT DIRECTOR KWADWO PULIDO M.D. Performed By: #### C BC ####[facility] [id number] [place] [address] [place] Basophils/100 WBC (Bld) 0.3 % Normal . [facility] Comment on above: Performed By: #### C BC ####[address] Eosinophils (Bld) [#/Vol] 0.1 10*3/uL Normal 0.0-0.45 [facility] Comment on above: Performed By: #### C BC ####[address] Eosinophils/100 WBC (Bld) 1.2 % Normal . [facility] Comment on above: Performed By: #### C BC ####[address] Erythrocyte distribution width (RBC) [Ratio] 14.8 % Normal 11.9-15.3 [facility] Comment on above: Performed By: #### C BC ####[address] Hematocrit (Bld) [Volume fraction] 18.9 % Off scale low 34.0-46.4 [facility] Comment on above: Result Comment: Crit ical value result called at 0657 on 02/02/23 Performed By: #### C BC ####[address] Hemoglobin (Bld) [Mass/Vol] 6.6 g/dL Low 11.8-15.4 [facility] Comment on above: Performed By: #### C BC ####[address] Lymphocytes (Bld) [#/Vol] 0.8 10*3/uL Low 1.00-4.8 [facility] Comment on above: Performed By: #### C BC ####[address] Lymphocytes/100 WBC (Bld) 13.6 % Normal . [facility] Comment on above: Performed By: #### C BC ####[address] MCH (RBC) [Entitic mass] 34.9 pg High 24.7-34.3 [facility] Comment on above: Performed By: #### C BC ####[place] [id number] [facility] MCV (RBC) [Entitic vol] 100.5 fL High 80-100 F [facility] Comment on above: Performed By: #### C BC ####[place] [id number] [facility] Mean Corpuscular HGB Conc 34.8 g/dL Normal 32.0-35.0 [facility] Comment on above: Performed By: #### C BC ####[place] [id number] [facility] Monocytes (Bld) [#/Vol] 0.6 10*3/uL Normal 0.0-0.8 [facility] Comment on above: Performed By: #### C BC ####[place] [id number] [facility] Monocytes/100 WBC (Bld) 10.9 % Normal . F [facility] Comment on above: Performed By: #### C BC ####[place] [id number] [facility] Neutrophils (Bld) [#/Vol] 4.3 10*3/uL Normal 1.8-7.7 [facility] Comment on above: Performed By: #### C BC ####[place] [id number] [facility] Neutrophils/100 WBC (Bld) 74.0 % Normal . [facility] Comment on above: Performed By: #### C BC ####[place] [id number] [facility] NRBC% 0.2 /100{WBC} Normal 0-0.5 [facility] Comment on above: Performed By: #### C BC ####[place] [id number] [facility] Platelet mean volume (Bld) [Entitic vol] 6.6 fL Normal 6.3-10.7 [facility] Comment on above: Performed By: #### C BC ####[place] [id number] [facility] Platelets (Bld) [#/Vol] 267 10*3/uL Normal 150-450 [facility] Comment on above: Performed By: #### C BC ####[address] RBC (Bld) [#/Vol] 1.89 10*6/uL Low 3.60-5.00 [facility] Comment on above: Performed By: #### C BC ####[place] [id number] [facility] WBC (Bld) [#/Vol] 5.8 10*3/uL Normal 3.8-11.6 [facility] Comment on above: Performed By: #### C BC ####[address] Cortisolon 02-02-2023 Cortisol 14.8 ug/dL Normal [facility] Comment on above: Result Comment: Refe rence range: AM 6 - 24 ug/dl PM <10 ug/dl PERFORMED BY: [place] [address] PATHOLOGIST ENRICHMENT DIRECTOR KWADWO PULIDO M.D. Performed By: #### H APT, RETIC #### [facility] [address] [place] [address] Performed By: #### L DH, DAGO, OSMO, FE and TIBC, HARVINDER, BMP ####[address] Ferritinon 02-02-2023 Ferritin [Mass/Vol] 102.9 ng/mL Normal 11.0-306.8 [facility] Comment on above: Performed By: #### H APT, RETIC #### [address] Ferritin [Mass/volume] in Se rum or PlasmaOrdered By: Ivy Thomas on 02-02-2023 Ferritin [Mass/Vol] 102.9 ng/mL 11.0-306.8 [facility] Haptoglobinon 02-02-2023 Haptoglobin 156 mg/dL Normal 44-215 [facility] Comment on above: Result Comment: PERF ORMED BY: [place] [address] PATHOLOGIST ENRICHMENT DIRECTOR KWADWO PULIDO M.D. Performed By: #### H APT, RETIC #### [facility] [address] [place] [address] [place] Haptoglobin [Mass/volume] in Serum or PlasmaOrdered By: Will Brown on 02-02-2023 Haptoglobin [Mass/Vol] 156 mg/dL 44-215 [facility] Iron [Mass/volume] in Serum or PlasmaOrdered By: Ivy Thomas on 02-02-2023 Iron [Mass/Vol] 36 ug/dL 50-212 [facility] Iron and TIBC Profileon 01-20 % Iron Saturation 12.8 % Low 20-50 [facility] Comment on above: Performed By: #### H APT, RETIC #### [facility] [address] [place] [address] Iron [Mass/Vol] 36 ug/dL Low 50-212 [facility] Comment on above: Performed By: #### H APT, RETIC #### [place] [id number] [facility] Total Iron Binding Capacity 281 ug/dL Normal 255-450 [facility] Comment on above: Performed By: #### H APT, RETIC #### [facility] [address] [place], [place] [id number] [place] Transferrin [Mass/Vol] 201 mg/dL Low 203-362 [facility] Comment on above: Performed By: #### H APT, RETIC #### [facility] [address] [place], [place] [id number] [place] Iron binding capacity [Mass/ volume] in Serum or PlasmaOrdered By: Ivy Thomas on 02-02-2023 Iron binding capacity [Mass/Vol] 281 ug/dL 255-450 [facility] Iron saturation [Mass Fracti on] in Serum or PlasmaOrdered By: Ivy Thomas on 02-02-2023 Iron saturation [Mass fraction] 12.8 % 20-50 [facility] LDH Lactate Dehydrogenaseon 02-02-2023 LDH Lactate Dehydrogenase 282 U/L High 140-271 [facility] Comment on above: Performed By: #### H APT, RETIC #### [facility] [address] [place] [address] [facility] Lactate dehydrogenase [Enzym atic activity/volume] in Serum or Plasma by Lactate to pyOrdered By: Will Brown on 02-02-2023 LDH Lactate to pyruvate reaction [Catalytic activity/Vol] 282 U/L 140-271 [facility] No Panel InformationOrdered By: Ivy Thomas on 02-02-2023 Urine Osmolality 465 mosm 250-900 [facility] Osmolalityon 02-02-2023 Osmolality 274 mosm Low 278-305 [facility] Comment on above: Result Comment: PERF ORMED BY: [facility] [address] [place] [address] PATHOLOGIST ENRICHMENT DIRECTOR KWADWO PULIDO M.D. Performed By: #### H APT, RETIC #### [facility] [address] [place] [address] [facility] Osmolality measurementOrdere d By: Ivy Thomas on 02-02-2023 Osmolality (Unsp spec) [Osmolality] 274 mosm 278-305 [facility] Osmolality, Urineon 02-03-20 23 Osmolality, Urine 465 mosm Normal 250-900 [facility] Comment on above: Result Comment: PERF ORMED BY: [place] [address] PATHOLOGIST ENRICHMENT DIRECTOR KWADWO PULIDO M.D. Performed By: #### U ROSMO, URNA ####[facility] [id number] [place] [id number] [facility] Random cortisol measurementO rdered By: Ivy Thomas on 02-02-2023 Cortisol [Mass/Vol] 14.8 ug/dL [facility] Comment on above: Reference range: AM 6 - 24 ug/dl PM <10 ug/dl Reticulocyte Counton 023 Reticulocyte Number 0.063 10*6/uL Normal 0.024-0 .08 4 [facility] Comment on above: Result Comment: PERF ORMED BY: [facility] [address] [place] [address] PATHOLOGIST ENRICHMENT DIRECTOR KWADWO PULIDO M.D. Performed By: #### H APT, RETIC #### [facility] [address] [place] [address] [place] Reticulocyte Percent 3.3 % High 0.5-1.5 [facility] Comment on above: Performed By: #### H APT, RETIC #### [facility] [address] [place] [address] [place] Reticulocytes/100 RBC Auto ( Bld)Ordered By: Will Brown on 02-02-2023 Reticulocytes/100 RBC (Bld) 3.3 % 0.5-1.5 [facility] Sodium [Moles/volume] in Uri neOrdered By: Ivy Thomas on 02-02-2023 Sodium (U) [Moles/Vol] 65.0 mmol/L [facility] Comment on above: No reference range e stablished Sodium, Urineon 02-02-2023 Sodium (U) [Moles/Vol] 65.0 mmol/L Normal F [facility] Comment on above: Result Comment: No r eference range established PERFORMED BY: [facility] [address] [place] [address] PATHOLOGIST ENRICHMENT DIRECTOR KWADWO PULIDO M.D. Performed By: #### U ROSMO, URNA ####[facility] [id number] [place] [address] [facility] Transferrin [Mass/volume] in Serum or PlasmaOrdered By: Ivy Thomas on 02-02-2023 Transferrin [Mass/Vol] 201 mg/dL 203-362 [facility] ABO/Rh Retypeon 02-01-2023 ABO/RH Recheck Result Positive Normal [facility] Comment on above: Result Comment: PERF ORMED BY: [facility] [address] [place] [address] PATHOLOGIST ENRICHMENT DIRECTOR KWADWO PULIDO M.D. Alanine aminotransferase [En zymatic activity/volume] in Serum or PlasmaOrdered By: Syd Muir on 02-01-2023 ALT [Catalytic activity/Vol] 14 U/L 7-52 [facility] Albumin [Mass/volume] in Ser um or Plasma by Bromocresol green (BCG) dye binding methoOrdered By: Syd Muir on 02-01-2023 Albumin BCG dye [Mass/Vol] 3.3 g/dL 3.5-5.7 [facility] Alkaline phosphatase [Enzyma tic activity/volume] in Serum or PlasmaOrdered By: Syd Muir on 02-01-2023 ALP [Catalytic activity/Vol] 100 U/L 34-104 [facility] Aspartate aminotransferase [ Enzymatic activity/volume] in Serum or PlasmaOrdered By: Syd Muir on 02-01-2023 AST [Catalytic activity/Vol] 24 U/L 13-39 [facility] Bilirubin.total [Mass/volume ] in Serum or PlasmaOrdered By: Syd Muir on 02-01-2023 Bilirubin [Mass/Vol] 0.8 mg/dL 0.3-1.0 [facility] Complete Blood Count Auto Di ffon 02-01-2023 Basophils (Bld) [#/Vol] 0.0 10*3/uL Normal 0.0-0.2 [facility] Comment on above: Result Comment: PERF ORMED BY: [place] [address] PATHOLOGIST ENRICHMENT DIRECTOR KWADWO PULIDO M.D. Performed By: #### C BC, CMP, PAB #### [facility] [address] [place] [address] [place] Basophils/100 WBC (Bld) 0.4 % Normal . F [facility] Comment on above: Performed By: #### C BC, CMP, PAB #### [facility] [address] [place] [address] [place] Eosinophils (Bld) [#/Vol] 0.1 10*3/uL Normal 0.0-0.45 [facility] Comment on above: Performed By: #### C BC, CMP, PAB #### [address] Eosinophils/100 WBC (Bld) 1.7 % Normal . [facility] Comment on above: Performed By: #### C BC CMP, PAB #### [address] Erythrocyte distribution width (RBC) [Ratio] 14.5 % Normal 11.9-15.3 [facility] Comment on above: Performed By: #### C BC, CMP, PAB #### [address] Hematocrit (Bld) [Volume fraction] 19.4 % Off scale low 34.0-46.4 [facility] Comment on above: Result Comment: Crit ical value result called at 0754 on 02/01/23 Performed By: #### C BC CMP, PAB #### [address] Hemoglobin (Bld) [Mass/Vol] 6.6 g/dL Low 11.8-15.4 [facility] Comment on above: Performed By: #### C BC, CMP, PAB #### [place] [address] [place] Lymphocytes (Bld) [#/Vol] 0.7 10*3/uL Low 1.00-4.8 [facility] Comment on above: Performed By: #### C BC, CMP, PAB #### [address] Lymphocytes/100 WBC (Bld) 11.1 % Normal . [facility] Comment on above: Performed By: #### C BC, CMP, PAB #### [address] MCH (RBC) [Entitic mass] 34.6 pg High 24.7-34.3 [facility] Comment on above: Performed By: #### C BC, CMP, PAB #### [address] MCV (RBC) [Entitic vol] 101.4 fL High 80-100 F [facility] Comment on above: Performed By: #### C BC, CMP, PAB #### [facility] [address] Mean Corpuscular HGB Conc 34.1 g/dL Normal 32.0-35.0 [facility] Comment on above: Performed By: #### C BC, CMP, PAB #### [facility] [address] [place] [address] [place] Monocytes (Bld) [#/Vol] 0.5 10*3/uL Normal 0.0-0.8 [facility] Comment on above: Performed By: #### C BC, CMP, PAB #### [facility] [address] [place] [address] [place] Monocytes/100 WBC (Bld) 7.7 % Normal . F [facility] Comment on above: Performed By: #### C BC, CMP, PAB #### [facility] [address] [place] [address] [place] Neutrophils (Bld) [#/Vol] 4.8 10*3/uL Normal 1.8-7.7 [facility] Comment on above: Performed By: #### C BC, CMP, PAB #### [facility] [address] [place] [address] [place] Neutrophils/100 WBC (Bld) 79.1 % Normal . [facility] Comment on above: Performed By: #### C BC, CMP, PAB #### [facility] [address] [place] [address] [place] NRBC% 0.2 /100{WBC} Normal 0-0.5 [facility] Comment on above: Performed By: #### C BC, CMP, PAB #### [facility] [address] [place] [address] [place] Platelet mean volume (Bld) [Entitic vol] 6.7 fL Normal 6.3-10.7 [facility] Comment on above: Performed By: #### C BC, CMP, PAB #### [facility] [address] [place] [address] [place] Platelets (Bld) [#/Vol] 278 10*3/uL Normal 150-450 [facility] Comment on above: Performed By: #### C BC, CMP, PAB #### [facility] [address] [place] [address] RBC (Bld) [#/Vol] 1.91 10*6/uL Low 3.60-5.00 [facility] Comment on above: Performed By: #### C BC, CMP, PAB #### [address] WBC (Bld) [#/Vol] 6.1 10*3/uL Normal 3.8-11.6 [facility] Comment on above: Performed By: #### C BC, CMP, PAB #### [address] Comprehensive Metabolic Pane edel 02-01-2023 Albumin [Mass/Vol] 3.3 g/dL Low 3.5-5.7 [facility] Comment on above: Performed By: #### C BC, CMP, PAB #### [address] Albumin/Globulin [Mass ratio] 1.7 {ratio} Normal [facility] Comment on above: Performed By: #### C BC, CMP, PAB #### [address] ALP [Catalytic activity/Vol] 100 U/L Normal 34-104 [facility] Comment on above: Performed By: #### C BC, CMP, PAB #### [facility] [address] [place] [address] ALT [Catalytic activity/Vol] 14 U/L Normal 7-52 [facility] Comment on above: Performed By: #### C BC, CMP, PAB #### [facility] [address] [place] [address] Anion gap [Moles/Vol] 10.0 mmol/L Normal 6.0-15.0 [facility] Comment on above: Performed By: #### C BC, CMP, PAB #### [address] AST [Catalytic activity/Vol] 24 U/L Normal 13-39 [facility] Comment on above: Performed By: #### C BC CMP, PAB #### [facility] [address] Bilirubin [Mass/Vol] 0.8 mg/dL Normal 0.3-1.0 [facility] Comment on above: Performed By: #### C BC, CMP, PAB #### [facility] [address] Calcium [Mass/Vol] 8.4 mg/dL Low 8.6-10.3 [facility] Comment on above: Performed By: #### C BC CMP, PAB #### [facility] [address] Chloride [Moles/Vol] 99 mmol/L Normal 98-107 [facility] Comment on above: Performed By: #### C BC CMP, PAB #### [address] CO2 [Moles/Vol] 26.4 mmol/L Normal 21.0-31.0 [facility] Comment on above: Performed By: #### C BC CMP, PAB #### [address] Creatinine [Mass/Vol] 1.16 mg/dL Normal 0.60-1.20 [facility] Comment on above: Performed By: #### C BC, CMP, PAB #### [facility] [address] Creatinine Clr Calc Pharmacy 39.13 [facility] Comment on above: Performed By: #### C BC, CMP, PAB #### [facility] [address] [place] [address] [place] GFR/1.73 sq M.predicted MDRD (S/P/Bld) [Vol rate/Area] 48.558 mL/min/{1.73_m2} [facility] Comment on above: Performed By: #### C BC, CMP, PAB #### [address] [place] [address] [place] Globulin (S) [Mass/Vol] 1.9 g/dL Normal F [facility] Comment on above: Performed By: #### C BC CMP, PAB #### [address] Glucose [Mass/Vol] 94 mg/dL Normal 70-100 [facility] Comment on above: Result Comment: [facility] Glucose Reference Range is dependent on time and content of last meal. Glucose of more than 200 mg/dL in a nonstressed, ambulatory subject supports the diagnosis of Diabetes Mellitus. ADA recommended reference range Performed By: #### C BC CMP, PAB #### [address] Potassium [Moles/Vol] 4.4 mmol/L Normal 3.5-5.1 [facility] Comment on above: Performed By: #### C MEGGAN NORTON, PAB #### [address] Protein [Mass/Vol] 5.2 g/dL Low 6.4-8.9 [facility] Comment on above: Performed By: #### C ERROL CMP, PAB #### [address] Sodium [Moles/Vol] 131 mmol/L Low 136-145 [facility] Comment on above: Performed By: #### C BC CMP, PAB #### [address] Urea nitrogen [Mass/Vol] 17 mg/dL Normal 7-25 [facility] Comment on above: Performed By: #### C BC, CMP, PAB #### [address] Direct [place] 02-01-2023 Polyspecific AHG Negative Normal [facility] Comment on above: Result Comment: PERF ORMED BY: [place] [address] PATHOLOGIST ENRICHMENT DIRECTOR KWADWO PULIDO M.D. Globulin Calc (S) [Mass/Vol] Ordered By: Syd Muir on 02-01-2023 Globulin (S) [Mass/Vol] 1.9 g/dL F [facility] LeukoReduced RBCon 3 LeukoReduced RBC TRANSFUSED 02/02/232056 Normal [facility] Prealbuminon 02-01-2023 Prealbumin [Mass/Vol] 14.7 mg/dL Low 17.0-34.0 [facility] Comment on above: Result Comment: PERF ORMED BY: [place] [address] PATHOLOGIST ENRICHMENT DIRECTOR KWADWO PULIDO M.D. Performed By: #### C BC, CMP, PAB #### [address] Prealbumin [Mass/volume] in Serum or PlasmaOrdered By: Syd Muir on 02-01-2023 Prealbumin [Mass/Vol] 14.7 mg/dL 17.0-34.0 [facility] Protein [Mass/volume] in Ser um or PlasmaOrdered By: Syd Muir on 02-01-2023 Protein [Mass/Vol] 5.2 g/dL 6.4-8.9 [facility] Serum or plasma albumin/glob ulin mass ratioOrdered By: Syd Muir on 02-01-2023 Albumin/Globulin [Mass ratio] 1.7 {ratio} [facility] Type and Screenon 02-01-2023 ABO and Rh group Nom (Bld) Blood group A Rh(D) positive Normal [facility] Comment on above: Order Comment: Trans fuse now? Y Number of units to transfuse now? 2 Result Comment: PERF ORMED BY: [place] [address] PATHOLOGIST ENRICHMENT DIRECTOR KWADWO PULIDO M.D. US venous duplex LE BIon US venous duplex LE BI [facility] [place] [address] [place] [id number] Ultrasound Report Signed Patient: Kiki Moore MR#: [id number] [birth year] : 1945 Acct:[id number] Age/Sex: 78 / F ADM Date: 01/31/23 Loc: Room: 3N4765-9 Type: ADM IN Attending Dr: Syd Muir MD Ordering Provider: Syd Muir MD Date of Service: 01/31/23 US/US venous duplex LE BI: r/o DVT Copies to: Syd Muir MD BILATERAL LOWER EXTREMITY VENOUS DUPLEX INDICATION: Bilateral lower extremity edema pain and tenderness. PROCEDURE: Color-flow duplex scanning is used to interrogate the deep venous system of the right and left lower extremities. The common femoral vein, femoral vein and popliteal vein show good compressibility with normal proximal and distal augmentation. The calf veins are compressible. US/US venous duplex LE BI IMPRESSION: NO EVIDENCE FOR DEEP VEIN THROMBOSIS OR PROXIMAL SUPERFICIAL THROMBOPHLEBITIS IN THE RIGHT OR LEFT LOWER EXTREMITY. Impression dictated by: Arvind James MD02/01/2023 6:52 AM Dictation Location: [place] [address] Tech: Sabina Brandt Transcribed By: ROYAL 02/01/23 0652 Dictated By: Arvind James MD 02/01/23 0651 Signed By: 02/01/23 0652 Normal [facility] XR knee LT 4V*on 02-01-2023 XR knee LT 4V* [facility] [place] [address] XRay Report Signed Patient: Kiki Moore MR#: [id number] 01 : 1945 Acct:[id number] Age/Sex: 78 / F ADM Date: 01/31/23 Loc: Room: 8W9536-0 Type: ADM IN Attending Dr: Syd Muir MD Copies to: TRAY Cota MD Ordering Provider: Sofya Petit APRN Date of Service: 02/01/23 XR/XR knee LT 4V*: postop, pain, redness, swelling LEFT KNEE - 4 VIEWS COMPARISON: None CLINICAL DATA: History of knee replacement 2 weeks ago. Difficulty bearing weight. Erythema, pain and swelling at the incision site. AP, lateral and both oblique views were obtained. Evaluation is slightly limited by positioning. There is osteopenia. A knee prosthesis is present. As visualized, the hardware appears intact and in appropriate position. There is no acute fracture or dislocation. There is a small knee effusion. There is mild subcutaneous edema. XR/XR knee LT 4V* IMPRESSION: SATISFACTORY APPEARANCE OF KNEE REPLACEMENT, WITHOUT OBVIOUS COMPLICATION. OSTEOPENIA. SMALL KNEE EFFUSION. Impression dictated by: Catalina Strickland M.D.02/01/2023 3:17 PM Dictation Location: [place] [address] Transcribed By: [facility] 02/01/23 151 Dictated By: Catalina Strickland MD 02/01/23 1515 Signed By: 02/01/23 151 [facility] CBC panel Auto (Bld)on 01-19 Erythrocyte distribution width (RBC) [Ratio] 13.2 % Normal 11.5-15.0 [facility] Comment on above: Order Comment: Tamiko marshall Type: BLOOD SPECIMENOrdering Facility: [facility] Address: [address] [place] [address] Performed By: #### 5 8410-2 ####[facility] LABORATORYCLIA [id number] [place] [address] [place] Hematocrit (Bld) [Volume fraction] 23.2 % Low 36.0-46.0 [facility] Comment on above: Order Comment: Tamiko marshall Type: BLOOD SPECIMENOrdering Facility: [facility] Address: [address] [place] [address] Performed By: #### 5 8410-2 ####[facility] LABORATORYCLIA [id number] [place] [address] [place] Hemoglobin (Bld) [Mass/Vol] 7.6 g/dL Low 11.5-15.5 [facility] Comment on above: Order Comment: Tamiko marshall Type: BLOOD SPECIMENOrdering Facility: [facility] Address: [address] [place] [address] Performed By: #### 5 8410-2 ####[facility] LABORATORYCLIA [id number] [place] [id number] [place] MCH (RBC) [Entitic mass] 33.2 pg Normal 26.0-34.0 [facility] Comment on above: Order Comment: Speci men Type: BLOOD SPECIMENOrdering Facility: [facility] Address: [address] [place] [address] Performed By: #### 5 8410-2 ####[facility] [id number] [place] [address] [place] MCHC (RBC) [Mass/Vol] 32.8 g/dL Normal 30.5-36.0 [facility] Comment on above: Order Comment: Speci men Type: BLOOD SPECIMENOrdering Facility: [facility] Address: [address] [place] [address] Performed By: #### 5 8410-2 ####[facility] [id number] [place] [address] [place] MCV (RBC) [Entitic vol] 101.3 fL High 80.0-100.0 [facility] Comment on above: Order Comment: Speci men Type: BLOOD SPECIMENOrdering Facility: [facility] Address: [address] [place] [address] Performed By: #### 5 8410-2 ####[facility] [id number] [place] [address] [place] Nucleated RBC (Bld) [#/Vol] 10*3/uL Normal <0.01 [facility] Comment on above: Order Comment: Speci men Type: BLOOD SPECIMENOrdering Facility: [facility] Address: [address] [place] [address] Performed By: #### 5 8410-2 ####[facility] [id number] [place] Platelet mean volume (Bld) [Entitic vol] 10.2 fL Normal 9.0-12.7 [facility] Comment on above: Order Comment: Speci men Type: BLOOD SPECIMENOrdering Facility: [facility] Address: [address] [place] [address] Performed By: #### 5 8410-2 ####[facility] LABORATORYCLIA [id number] [facility] [place] [address] [facility] Platelets (Bld) [#/Vol] 153 10*3/uL Normal 150-400 [facility] Comment on above: Order Comment: Speci men Type: BLOOD SPECIMENOrdering Facility: [facility] Address: [address] [place] [address] Performed By: #### 5 8410-2 ####[facility] LABORATORYIA [id number] [place] [address] [facility] RBC (Bld) [#/Vol] 2.29 10*6/uL Low 3.90-5.20 [facility] Comment on above: Order Comment: Speci men Type: BLOOD SPECIMENOrdering Facility: [facility] Address: [address] [place] [address] Performed By: #### 5 8410-2 ####[facility]PITALIA [id number] OF [facility] WBC (Bld) [#/Vol] 12.19 10*3/uL High 3.70-11.00 [facility] Comment on above: Order Comment: Speci men Type: BLOOD SPECIMENOrdering Facility: [facility] Address: [address] [place] [address] Performed By: #### 5 8410-2 ####[facility] LABORATORYIA [id number] [facility] [id number] [facility] CNDSon 01-19-2023 CNDS HNO ID: [id number] Author: Gaby Solorzano PA-C Service: Orthopaedic Surgery Author Type: Physician Lpc Type: Discharge Summary Filed: 01/19/2023 12:35 PM Note Text: -- Attestation signed by Shan Box MD at 01/23/2023 10:16 AM I have personally performed face to face diagnostic evaluation on this patient. I have examined the patient and reviewed radiographic studies and agree with plan as outlined above. Shan Box II, MD January 23, 2023 10:16 AM -- DISCHARGE SUMMARY Patient Name: Kiki Moore : 1945 ADMISSION DATE: 01/17/2023 DISCHARGE DATE: 01/19/2023 Attending Physician: Shan Box MD Primary Diagnosis: Primary osteoarthritis of left knee [M17.12] S/P total knee arthroplasty, left [Z96.652] Operations During Hospitalization: Procedure(s) (LRB): ARTHROPLASTY REPLACE JOINT TOTAL KNEE AIDA (Left) Procedures During Hospitalization: No procedures performed Hospital Course: Kiki is a 78 year old female complaining of left Knee pain not responsive to a comprehensive course of conservative treatment. Left knee total arthroplasty was proposed and the patient wishes to proceed and was medically cleared prior to the procedure. Patient underwent a Left knee total arthroplasty and was transferred to the PACU in stable condition, She was then admitted to the hospital. Post operatively She did well. Post-operative HgB was stable and within acceptable range and remained there throughout the hospital stay not requiring transfusion. Wound was without sign of infection. She was able to actively participate in a physical and occupational therapy program for gait training and mobilization. Due to the operative findings and procedure performed which is consistent with a major orthopedic procedure, the postoperative analgesia will exceed the allowable morphine equivalent dose. PHYSICAL EXAM: See progress note Patient Condition at Discharge: Stable Discharge Disposition: [facility] DISCHARGE MEDICATION: Medication List START taking these medications acetaminophen 500 mg tablet Commonly known as: TYLENOL Take 2 tablets by mouth every 8 hours. docusate sodium 100 mg capsule Commonly known as: COLACE Take 1 capsule by mouth twice daily as needed for constipation. oxyCODONE IR 5 mg immediate release tablet Commonly known as: ROXICODONE Take 0.5 - 1 tablets by mouth every 4-6 hours as needed for pain. rivaroxaban 10 mg tablet Commonly known as: XARELTO Take 1 tablet by mouth once daily for 10 doses. Start taking on: January 20, 2023 CONTINUE taking these medications ALPHAGAN P 0.1 % Drop Generic drug: brimonidine aspirin, enteric coated 81 mg EC tablet Commonly known as: ECOTRIN LOW STRENGTH Take 1 tablet by mouth once daily. Cholecalciferol (Vitamin D3) 50 mcg (2,000 unit) Cap Commonly known as: Vitamin D-3 Take 1 capsule by mouth once daily. clindamycin 300 mg capsule Commonly known as: CLEOCIN Take 1 tablet by mouth 1 hour prior to procedure and 1 tablet by mouth 6 hours after procedure folic acid 1 mg tablet furosemide 20 mg tablet Commonly known as: LASIX hydrOXYchloroQUINE 200 mg tablet Commonly known as: PLAQUENIL latanoprost 0.005 % ophthalmic solution Commonly known as: XALATAN lisinopril 40 mg tablet Commonly known as: ZestriL Take 1 tablet by mouth once daily. methotrexate 2.5 mg tablet Take 1 tablet by mouth every Monday. 6 tablets ONCE WEEKLY predniSONE 5 mg tablet Commonly known as: DELTASONE Take 1 tablet by mouth as needed (daily only as needed for arthritis pain). Future Appointments: Appointments for Next 60 Days Date Time Provider Location Dept Phone 02/10/2023 10:30 AM JUDIT JARRELL [phone] 03/01/2023 1:15 PM [facility] [phone] SIGNATURE: Gaby Solorzano PA-C PATIENT NAME: Kiki Moore DATE: 01/19/23 TIME: 11:22 AM [facility] CONSULT PROGon 01-19-2023 CONSULT PROG HNO ID: [id number] Author: Jc Pennington MD Service: Hospital Medicine Author Type: Physician Type: Consult Progress Note Filed: 01/19/2023 11:55 AM Note Text: DEPARTMENT OF HOSPITAL MEDICINE CONSULT PROGRESS NOTE SERVICE DATE: 01/19/2023 SERVICE TIME: 11:51 AM Primary Care Physician: MAINE Arias, PAWilfredoC NIGHT AND WEEKEND COVERAGE: KARINA COVERAGE: Days: [phone], please contact via Pa-Go Mobile SecureAttentiosage Nights: [phone] - floor: please page CC Hospitalist night cover [phone] - 4th floor: please page CC Hospitalist night cover [phone] - 5th floor: please page CC Hospitalist night cover [phone] Subjective INTERVAL HPI: Pt says she feels a little better today. Noted KAMI with hyponatremia and hyperkalemia improved this morning. All questions answered. MEDICATIONS: Reviewed Current Facility-Administered Medications Medication Dose Route Frequency furosemide 20 mg tab(s) (LASIX) 20 mg ORAL DAILY brimonidine 0.2 % 1 Drop (ALPHAGAN) 1 Drop BOTH EYES DAILY latanoprost 0.005 % 1 Drop (XALATAN) 1 Drop BOTH EYES AT BEDTIME acetaminophen 1,000 mg tab(s) (TYLENOL) 1,000 mg ORAL q 8 H morphine 2 mg injection 2 mg INTRAVENOUS q 2 H PRN ondansetron 4 mg tab(s) (ZOFRAN) 4 mg ORAL q 6 H PRN Or ondansetron (PF) 4 mg injection (ZOFRAN) 4 mg INTRAVENOUS q 6 H PRN magnesium hydroxide 400 mg/5 mL 30 mL (MOM) 30 mL ORAL DAILY PRN bisacodyl EC 10 mg tab(s) (DULCOLAX) 10 mg ORAL DAILY aluminum-magnesium hydroxide-simethicone 200-200-20 mg/5 mL 30 mL 30 mL ORAL q 2 H PRN ferrous sulfate 325 mg tab(s) 325 mg ORAL BID w MEALS ascorbic acid (vitamin C) 500 mg tab(s) (VITAMIN C) 500 mg ORAL BID w MEALS docusate sodium 100 mg cap(s) (COLACE) 100 mg ORAL BID senna 17.2 mg tab(s) (SENOKOT) 17.2 mg ORAL AT BEDTIME rivaroxaban 10 mg tab(s) (XARELTO) 10 mg ORAL DAILY NaCl 0.9% iv flush bag 20 mL INTRAVENOUS PRN NaCl 0.9% iv infusion 100 mL/hr INTRAVENOUS CONTINUOUS oxyCODONE IR 2.5-5 mg tab(s) (ROXICODONE) 2.5-5 mg ORAL q 3 H PRN Objective PHYSICAL EXAM: BP 126/57 Pulse 68 Temp (Src) 97.3 (Oral) Resp 20 Ht 5' 1 (1.55m) Wt 172 lb 2.9 oz (78.1kg) SpO2 98% BMI 32.55 kg/(m2). O2 Therapy: Room Air Physical Exam Performed: GENERAL: Alert, no distress, cooperative HEAD/SINUSES: No significant findings EYES: PERRLA, EOMI LUNGS: Lungs clear to auscultation, Good diaphragmatic excursion CARDIAC: Normal S1 and S2; no rubs, murmurs, or gallops ABDOMEN: Abdomen soft, non-tender, BS normal, No masses or organomegaly EXTREMITIES: no c/c/e Lines, Drains, and Airways Line Duration Peripheral 01/17/23 0715 Short Right Forearm 20 Gauge 2 days Reviewed lines and needs to be continued: REASONS: Intravenous fluids, Telemetry, and Electrolyte replacement DATA: Diagnostic tests reviewed for today's visit: Most recent labs and imaging results. Impression/Recommendations Kiki Moore is a 78 year old female with a past medical history of HTN, obesity, RA, spinal stenosis, and primary arthritis of the left knee who presents from the outpatient office of Dr. Box for a failed conservative management of left knee osteoarthritis. Patient is in the hospital for an elective TKR arthroscopy and medicine was asked to see patient for medical management. Pain well controlled post op. Active Problems: Status post total left knee replacement (POA: No) - POD2 for left total knee replacement - pain well controlled - PT/OT rec acute rehab - pain control per primary - Encourage IS for atelectasis prevention - VTE ppx per primary KAMI: POA. Improved this morning along with hyponatremia to 129 from 126 and hyperkalemia to 4.7 from 5.8 s/p kayexalate. - Stopped LR - Continued NS@100 cc/hr - Stopped potassium supplement - Holding Lisinopril, ok to resume at dc - Avoid nephrotoxins - Tele - Continue to monitor RA (rheumatoid arthritis) (HCC) (POA: Yes) - on methotrexate weekly and plaquentil BID, both on hold per primary Hypertension (POA: Yes) - Continue home 20mg lasix daily for now - Hold home lisinopril as above Obesity, Class I, BMI 30-34.9 (POA: Yes) - recommend follow up with PCP, health healthy diet, activity as tolerated Dispo: Cleared for discharge to acute rehab from medicine standpoint once cleared by primary (Ortho) VTE PROPHYLAXIS: As per primary team Disposition: To be determined Plan of care discussed with: Patient, Care Management, and RN SIGNATURE: Jc Pennington MD PATIENT NAME: Kiki Moore DATE: January 19, 2023 TIME: 11:51 AM etx [id number] Normal [facility] Magnesium SerPl-mCncon 01-19 Magnesium [Mass/Vol] 1.5 mg/dL Low 1.7-2.3 [facility] Comment on above: Order Comment: Speci men Type: BLOOD SPECIMENOrdering Facility: [facility] Address: [address] [place] [address] Performed By: #### 2 4362-6, ####[facility] LABORATORYCLIA [id number] [place] [address] [place] Renal function 2000 panel 01-19-2023 Albumin [Mass/Vol] 3.4 g/dL Low 3.9-4.9 [facility] Comment on above: Order Comment: Speci [facility] Type: BLOOD SPECIMENOrdering Facility: [facility] Address: [address] [place] [address] Performed By: #### 2 4362-6, ####[facility] LABORATORYCLIA [id number] [place] [address] [place] Anion gap [Moles/Vol] 12 mmol/L Normal 9-18 [facility] Comment on above: Order Comment: Speci men Type: BLOOD SPECIMENOrdering Facility: [facility] Address: [address] Performed By: #### 2 4362-6, ####[facility] LABORATORYCLIA [id number] [place] [address] [place] Calcium [Mass/Vol] 8.1 mg/dL Low 8.5-10.2 [facility] Comment on above: Order Comment: Speci men Type: BLOOD SPECIMENOrdering Facility: [facility] Address: [address] [place], [place] [address] Performed By: #### 2 4362-6, ####[facility] LABORATORYCLIA [id number] [facility] [place] [address] [place] Chloride [Moles/Vol] 97 mmol/L Normal 97-105 [facility] Comment on above: Order Comment: Speci men Type: BLOOD SPECIMENOrdering Facility: [facility] Address: [address] [place], [place] [address] Performed By: #### 2 4362-6, ####[facility] LABORATORYCLIA [id number] [place] [address] [place] CO2 [Moles/Vol] 20 mmol/L Low 22-30 [facility] Comment on above: Order Comment: Speci men Type: BLOOD SPECIMENOrdering Facility: [facility] Address: [address] [place] [address] Performed By: #### 2 4362-6, ####[facility]ITALIA [id number] [facility] [address] [place] Creatinine [Mass/Vol] 1.12 mg/dL High 0.58-0.96 [facility] Comment on above: Order Comment: Speci men Type: BLOOD SPECIMENOrdering Facility: [facility] Address: [address] [place] [address] Performed By: #### 2 4362-6, ####[facility] LABORATORYIA [id number] [place] [address] [place] Creatinine and Glomerular filtration rate.predicted panel (S/P/Bld) 51 mL/min/1.73m??? Low >=60 [facility] Comment on above: Order Comment: Speci men Type: BLOOD SPECIMENOrdering Facility: [facility] Address: [address] [place], [place] [address] Result Comment: Karen mated Glomerular Filtration Rate (eGFR) is calculated using the 2020 CKD-EPI creatinine equation. This equation utilizes serum creatinine, sex, and age as parameters. The creatinine assay has traceable calibration to isotope dilution-mass spectrometry. Refer to KDIGO guidelines for clinical interpretation. In patients with unstable renal function, e.g. those with acute kidney injury, the eGFR may not accurately reflect actual GFR. Performed By: #### 2 4362-6, ####[facility] LABORATORYCLIA [id number] [place] [address] [place] Glucose [Mass/Vol] 101 mg/dL High 74-99 [facility] Comment on above: Order Comment: Tamiko marshall Type: BLOOD SPECIMENOrdering Facility: [facility] Address: [address] [place] [id number] Result Comment: The [place] [employer] Association (ADA) provides guidance for cutoff values for fasting glucose and random glucose. The ADA defines fasting as no caloric intake for at least 8 hours. Fasting plasma glucose results between 100 to 125 mg/dL indicate increased risk for diabetes (prediabetes). Fasting plasma glucose results greater than or equal to 126 mg/dL meet the criteria for diagnosis of diabetes. In the absence of unequivocal hyperglycemia, results should be confirmed by repeat testing. In a patient with classic symptoms of hyperglycemia or hyperglycemic crisis, random plasma glucose results greater than or equal to 200 mg/dL meet the criteria for diagnosis of diabetes. Reference: Standards of Medical Care in Diabetes 2016, [place] [employer]. Diabetes Care. 2016.39(Suppl 1). Performed By: #### 2 4362, ####[facility] LABORATORYCLIA [id number] [place] [address] [place] Phosphate [Mass/Vol] 3.6 mg/dL Normal 2.7-4.8 [facility] Comment on above: Order Comment: Tamiko marshall Type: BLOOD SPECIMENOrdering Facility: [facility] Address: [address] [place] [address] Performed By: #### 2 4366, ####[facility] LABORATORYCLIA [id number] [facility] [address] [place] Potassium [Moles/Vol] 4.7 mmol/L Normal 3.7-5.1 [facility] Comment on above: Order Comment: Speci men Type: BLOOD SPECIMENOrdering Facility: [facility] Address: [address] [place] [phone] Performed By: #### 2 4362-6, ####[facility] LABORATORYCLIA [id number] [place] [address] [facility] Sodium [Moles/Vol] 129 mmol/L Low 136-144 [facility] Comment on above: Order Comment: Speci men Type: BLOOD SPECIMENOrdering Facility: [facility] Address: [address] [place], [place] [address] Performed By: #### 2 4362-6, ####[facility] HOSPITALIA [id number] [place] [address] [place] Urea nitrogen [Mass/Vol] 33 mg/dL High 7-21 [facility] Comment on above: Order Comment: Speci men Type: BLOOD SPECIMENOrdering Facility: [facility] Address: [address] [place] [address] Performed By: #### 2 4362-6, ####[facility] LABORATORYCLIA [id number] [place] [id number] [facility] THERAPY NTon 01-19-2023 THERAPY NT HNO ID: [id number] Author: Katerine Shook, PT, DPT Service: Physical Therapy Author Type: Physical Therapist Type: Therapy (PT/OT/Speech/Resp) Filed: 01/19/2023 11:28 AM Note Text: Physical Therapy Treatment SERVICE DATE: 01/19/2023 SERVICE TIME: 0937 to 1000 ROOM: [place] [address] Total Joint Replacement Discharge Readiness: Pending Physical Therapy Clearance Recommended Discharge Disposition: Acute Rehab Recommended Discharge Disposition Comments: Pt requiring mod A for transfers and unable to tolerate increased ambulation d/t difficulty using the walker with UEs. Pt would benefit from post-acute PT at [place]. Recommended Discharge Disposition Due to: Patient requires an active, intensive rehabilitation therapy program due to:, decline in functional status requiring daily skilled care Recommended Discharge Equipment: No equipment needs anticipated PT 6 Clicks Score: 11 Precautions/Activity Restrictions: Total Knee Replacement, Weight Bearing Restrictions Extremity With Weight Bearing Restricted: Left Lower Extremity Left Lower Extremity Weight Bearing Status: WBAT Current Hospital Course: s/p L TKA 01/17 (Juanita) Reason for Hospital Admission: s/p L TKA Response to Therapy Interventions: Pain, Slow Progression with Functional Activities/Skills, Requires Encouragement to Complete Activities, Requires Additional Time to Complete Activities Physical Therapy Problem List: Decreased Range Of Motion, Decreased Strength, Functional Mobility Impairment Treatment Interventions: Education, Joint Mobility, Strengthening, Functional Mobility Training Home Environment Patient Lives With: Self/Alone Assistance Available: PRN (son lives across the street, daughter lives down the road; dtr will be staying with pt but works during the day (son and DIL within minutes if needed during the day)) Entry To Home: Stairs, With Rail (b hr) Number Of Stairs Into Home: 5 Number Of Stairs To Bed/Bath: 1st floor bed and bath Tub/Shower Type: WIS - has 1 suction bar, no chair Laundry: 1st floor- family can A Equipment Owned: Cane, Walker- Wheeled, Commode- Raised, Grab Bars- Shower, Lift Chair, Snapper On, Sock Aid, Long Handled Shoe Horn Prior Functional Level: Within Functional Limits Prior Functional Level Comments: IND ADLs and amb with RW at all times, + drive Baseline Cognition: Oriented to self, Oriented to place, Oriented to time Subjective: Pt in the chair, reports feeling nauseous today CURRENT FUNCTIONAL STATUS: Most recent performance Current Functional Mobility Assist Level Additional Information Rolling Supine to Sit Sit to Supine Scooting Sit to Stand Moderate Assistance Stand to Sit Minimal Assistance Bed to Chair Toilet/Commode Moderate Assistance Gait Moderate Assistance (1st 2 steps and then min A next 4 steps) Gait Device: (GENTRY walker) Gait Distance (feet): 4 Pt painful, but better able to push down on GENTRY walker using B forearms. Still limited distance d/t pain Stairs Curb Step Car Transfer Blank germain indicate activity not attempted Gait Deviations Left Lower Extremity: Weight bearing decreased, Step length decreased, Stance time decreased, Push off during terminal stance decreased, Heel strike during initial stance decreased Range of Motion: WFL Except (L knee AA flexion ~45 deg- more sore today) Strength: WFL Except (L knee <3/5- more sore today, unable to lift on her own) -HLM: 4: Move to chair / commode Learning/Educational Needs: Discharge Plan, Functional Activities/Mobility, Plan of Care, Rehabilitation Techniques and Procedures, PT In-Hospital Exercise Program Goals for Plan of Care: Patient/Caregiver Goals: Go Home Goals: Patient will demonstrate progress with functional mobility to allow safe discharge to home with available support and/or physical assistance. Progress Toward Goals: Progressing slower than expected Due To: pain Rehab Potential: Good Patient will be discontinued from Physical Therapy when no further skilled needs are identified in this setting. PLAN: PT Frequency: Once Daily Plan of Care developed with: Patient TREATMENT INTERVENTIONS: Therapy Diagnosis: Reduced mobility-other Interventions Provided: Gait Training (81670), Therapeutic Exercise (62031) Therapeutic Exercise (71421) Treatment Minutes: 13 $ Therapeutic Exercise (66924) Billed Units: 1 unit Gait Training (04322) Treatment Minutes: 10 $ Gait Training (05424) Billed Units: 1 unit Training AND Education Provided in: Assistive Device Use, Benefits of In-Hospital Mobility, Discharge Planning, Equipment, Exercise Program, Gait Pattern, Reduction of Deviations, Handout Issued, Precautions/Restrictions, Pre-gait Activities, Role of Physical Therapy, Sitting Balance, Standing Balance, Transfers The Following Therapeutic Skills Were Used: Activity Dosing, Cues for Sequencing/Proper Technique for Activity, Facilitation of Joint R (more content not included)... [facility] THERAPY NT HNO ID: [id number] Author: Alysia Pereira OT/L Service: Occupational Therapy Author Type: Occupational Therapist Type: Therapy (PT/OT/Speech/Resp) Filed: 01/19/2023 9:27 AM Note Text: Occupational Therapy Treatment SERVICE DATE: 01/19/2023 SERVICE TIME: 821 ROOM: [place] [address] Total Joint Replacement Discharge Readiness: Pending Occupational Therapy Clearance Recommended Discharge Disposition: Subacute/SNF Recommended Discharge Disposition Comments: Recommend SNF at this time Recommended Discharge Disposition Due to: Patient requires daily, facility-based rehabilitation from at least one discipline due to:, ADL impairment resulting in caregiver dependence, anticipate community discharge/previous community dweller, decline in functional status requiring daily skilled care Recommended Discharge Equipment: To Be Determined OT 6 Clicks Score: 18 Precautions/Activity Restrictions: Total Knee Replacement, Weight Bearing Restrictions Extremity With Weight Bearing Restricted: Left Lower Extremity Left Lower Extremity Weight Bearing Status: WBAT Current Hospital Course: s/p L TKA 01/17 (Cyndiileanarasheeda) Reason for Hospital Admission: s/p L TKA Response to Therapy Interventions: Good Participation in Activities, Requires Additional Time to Complete Activities Continued Skilled Needs Due to: Functional Impairment Occupational Therapy Problem List: Impaired Self Care, Decreased Activity Tolerance, Functional Mobility Impairment, Balance Impaired, Sensory Deficit Treatment Interventions: Education, Self Care/Home Management, Energy Conservation Training, Joint Mobility, Strengthening, Functional Mobility Training, Balance Training Home Environment Patient Lives With: Self/Alone Assistance Available: PRN (son lives across the street, daughter lives down the road; dtr will be staying with pt but works during the day (son and DIL within minutes if needed during the day)) Entry To Home: Stairs, With Rail (b hr) Number Of Stairs Into Home: 5 Number Of Stairs To Bed/Bath: 1st floor bed and bath Tub/Shower Type: WIS - has 1 suction bar, no chair Laundry: 1st floor- family can A Equipment Owned: Cane, Walker- Wheeled, Commode- Raised, Grab Bars- Shower, Lift Chair, Snapper On, Sock Aid, Long Handled Shoe Horn Prior Functional Level: Within Functional Limits Prior Functional Level Comments: IND ADLs and amb with RW at all times, + drive Baseline Cognition: Oriented to self, Oriented to place, Oriented to time 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 CURRENT FUNCTIONAL STATUS: Most recent performance Current Activities of Daily Living Assist Level Additional Information Feeding Set Up Grooming Set Up (seated) Bathing Upper Body Stand By Assistance Bathing Lower Body Moderate Assistance Dressing Upper Body Stand By Assistance Dressing Lower Body Maximal Assistance Toileting Maximal Assistance Instrumental Activities of Daily Living Assist Level Additional Information Meal/Beverage Prep Cleaning Laundry Medication Management with Strategies Functional Mobility Assist Level Additional Information Rolling Supine to Sit Stand By Assistance, Additional Information HOB elevated Sit to Supine Scooting Sit to Stand Moderate Assistance Stand to Sit Minimal Assistance Bed to Chair Toilet/Commode Shower Functional Mobility Moderate Assistance Wheeled Walker Blank germain indicate activity not attempted Learning/Educational Needs: Discharge Plan, Equipment, Functional Activities/Mobility, Plan of Care, Precautions, Positioning, Rehabilitation Techniques and Procedures, Self Care, Safety Goals for Plan of Care: Patient/Caregiver Goals: Reduce ADL/IADL barriers Goals: Patient will demonstrate progress with self-care, cognitive and/or coping needs identified to allow safe discharge to home with available support and/or physical assistance. Progress Toward Goals: Progressing slower than expected Due To: pain Rehab Potential: Good Patient will be discontinued from Occupational Therapy when no further skilled needs are identified in this setting. PLAN: OT Frequency: 5 Times Per Week Plan of Care developed with: Patient TREATMENT INTERVENTIONS: Therapy Diagnosis: Reduced mobility-other, Decreased activities of daily living (ADL), Muscle Weakness (generalized), General symptoms and signs-other Interventions Provided: Self Chcf Management (08271) Self Chcf Management (29901) Treatment Minutes: 23 $ Self Chcf Management (52721) Billed Units: 2 units Training AND Education Provided in: Assistive Device Use, Bed Mobility, Benefits of In-Hospital Mobility, Discharge Planning, Expected Functional Level, Positioning, Precautions/Restrictions, Role (more content not included)... Normal [facility] Basic metabolic 2000 panelon 01-18-2023 Anion gap [Moles/Vol] 7 mmol/L Low 9-18 [facility] Comment on above: Order Comment: Speci men Type: BLOOD SPECIMENOrdering Facility: [facility] Address: [address] [address] Performed By: #### 2 4321-2 ####[facility] LABORATORYCLIA [id number] [place] [address] [place] Calcium [Mass/Vol] 8.4 mg/dL Low 8.5-10.2 [facility] Comment on above: Order Comment: Speci men Type: BLOOD SPECIMENOrdering Facility: [facility] Address: [address] [address] Performed By: #### 2 4321-2 ####[facility] LABORATORYCLIA [id number] [place] [address] [place] Chloride [Moles/Vol] 98 mmol/L Normal 97-105 [facility] Comment on above: Order Comment: Speci men Type: BLOOD SPECIMENOrdering Facility: [facility] Address: [address] [address] Performed By: #### 2 4321-2 ####[facility] LABORATORYCLIA [id number] [facility] [address] [place] CO2 [Moles/Vol] 21 mmol/L Low 22-30 [facility] Comment on above: Order Comment: Speci rolando Type: BLOOD SPECIMENOrdering Facility: [facility] Address: [address] [address] Performed By: #### 2 4321-2 ####[facility] LABORATORYCLIA [id number] [place] [address] [place] Creatinine [Mass/Vol] 1.26 mg/dL High 0.58-0.96 [facility] Comment on above: Order Comment: Natii men Type: BLOOD SPECIMENOrdering Facility: [facility] Address: [address] [place] [address] Performed By: #### 2 4321-2 ####[facility] LABORATORYCLIA [id number] [place] [address] [place] Creatinine and Glomerular filtration rate.predicted panel (S/P/Bld) 44 mL/min/1.73m??? Low >=60 [facility] Comment on above: Order Comment: Tamiko marshall Type: BLOOD SPECIMENOrdering Facility: [facility] Address: [address] [place] [address] Result Comment: Karen mated Glomerular Filtration Rate (eGFR) is calculated using the 2020 CKD-EPI creatinine equation. This equation utilizes serum creatinine, sex, and age as parameters. The creatinine assay has traceable calibration to isotope dilution-mass spectrometry. Refer to KDIGO guidelines for clinical interpretation. In patients with unstable renal function, e.g. those with acute kidney injury, the eGFR may not accurately reflect actual GFR. Performed By: #### 2 4321-2 ####[facility] LABORATORYCLIA [id number] [facility] [place] [address] [place] Glucose [Mass/Vol] 161 mg/dL High 74-99 [facility] Comment on above: Order Comment: Natii men Type: BLOOD SPECIMENOrdering Facility: [facility] Address: [address] [address] Result Comment: The [place] [employer] (ADA) provides guidance for cutoff values for fasting glucose and random glucose. The ADA defines fasting as no caloric intake for at least 8 hours. Fasting plasma glucose results between 100 to 125 mg/dL indicate increased risk for diabetes (prediabetes). Fasting plasma glucose results greater than or equal to 126 mg/dL meet the criteria for diagnosis of diabetes. In the absence of unequivocal hyperglycemia, results should be confirmed by repeat testing. In a patient with classic symptoms of hyperglycemia or hyperglycemic crisis, random plasma glucose results greater than or equal to 200 mg/dL meet the criteria for diagnosis of diabetes. Reference: Standards of Medical Care in Diabetes 2016, [place] [employer]. Diabetes Care. 2016.39(Suppl 1). Performed By: #### 2 4321-2 ####[facility] LABORATORYIA [id number] [place] [address] [place] Potassium [Moles/Vol] 5.8 mmol/L High 3.7-5.1 [facility] Comment on above: Order Comment: Speci men Type: BLOOD SPECIMENOrdering Facility: [facility] Address: [address] [address] Performed By: #### 2 4321-2 ####[facility]PITALIA [id number] [place] [address] [place] Sodium [Moles/Vol] 126 mmol/L Low 136-144 [facility] Comment on above: Order Comment: Speci men Type: BLOOD SPECIMENOrdering Facility: [facility] Address: [address] [address] Performed By: #### 2 4321-2 ####[facility] LABORATORYIA [id number] [place] [address] [place] Urea nitrogen [Mass/Vol] 32 mg/dL High 7-21 [facility] Comment on above: Order Comment: Speci men Type: BLOOD SPECIMENOrdering Facility: [facility] Address: [address] [address] Performed By: #### 2 4321-2 ####[facility] LABORATORYIA [id number] [facility] [place] [address] [place] CBC panel Auto (Bld)on 01-18 Erythrocyte distribution width (RBC) [Ratio] 13.0 % Normal 11.5-15.0 [facility] Comment on above: Order Comment: Speci men Type: BLOOD SPECIMENOrdering Facility: [facility] Address: [address] [place] [address] Performed By: #### 5 8410-2 ####[facility] LABORATORYIA [id number] [address] [facility] Hematocrit (Bld) [Volume fraction] 23.1 % Low 36.0-46.0 [facility] Comment on above: Order Comment: Speci men Type: BLOOD SPECIMENOrdering Facility: [facility] Address: [address] [place] [address] Performed By: #### 5 8410-2 ####[facility] [id number] [address] [place] Hemoglobin (Bld) [Mass/Vol] 7.8 g/dL Low 11.5-15.5 [facility] Comment on above: Order Comment: Speci men Type: BLOOD SPECIMENOrdering Facility: [facility] Address: [address] [place] [address] Performed By: #### 5 8410-2 ####[facility]ITALIA [id number] [address] [place] MCH (RBC) [Entitic mass] 34.5 pg High 26.0-34.0 [facility] Comment on above: Order Comment: Speci men Type: BLOOD SPECIMENOrdering Facility: [facility] Address: [address] [place] [address] Performed By: #### 5 8410-2 ####[facility] LABORATORYIA [id number] [place] [id number] [place] MCHC (RBC) [Mass/Vol] 33.8 g/dL Normal 30.5-36.0 [facility] Comment on above: Order Comment: Speci men Type: BLOOD SPECIMENOrdering Facility: [facility] Address: [address] [address] Performed By: #### 5 8410-2 ####[facility] HOSPITALIA [id number] [place] [address] [place] MCV (RBC) [Entitic vol] 102.2 fL High 80.0-100.0 [facility] Comment on above: Order Comment: Speci men Type: BLOOD SPECIMENOrdering Facility: [facility] Address: [address] [address] Performed By: #### 5 8410-2 ####[facility]PITALIA [id number] [place] [address] [place] Nucleated RBC (Bld) [#/Vol] 10*3/uL Normal <0.01 [facility] Comment on above: Order Comment: Speci men Type: BLOOD SPECIMENOrdering Facility: [facility] Address: [address] Performed By: #### 5 8410-2 ####[facility]ITALIA [id number] [place] [address] [place] Platelet mean volume (Bld) [Entitic vol] 9.7 fL Normal 9.0-12.7 [facility] Comment on above: Order Comment: Speci men Type: BLOOD SPECIMENOrdering Facility: [facility] Address: [address] Performed By: #### 5 8410-2 ####[facility]ITALIA [id number] [place] [address] [place] Platelets (Bld) [#/Vol] 137 10*3/uL Low 150-400 [facility] Comment on above: Order Comment: Speci men Type: BLOOD SPECIMENOrdering Facility: [facility] Address: [address] Performed By: #### 5 8410-2 ####[facility]ITALIA [id number] [facility] [place] [address] [place] RBC (Bld) [#/Vol] 2.26 10*6/uL Low 3.90-5.20 [facility] Comment on above: Order Comment: Speci men Type: BLOOD SPECIMENOrdering Facility: [facility] Address: [address] [place] [address] Performed By: #### 5 8410-2 ####[facility] LABORATORYIA [id number] [facility].[place] [id number] [facility] WBC (Bld) [#/Vol] 11.61 10*3/uL High 3.70-11.00 [facility] Comment on above: Order Comment: Speci men Type: BLOOD SPECIMENOrdering Facility: [facility] Address: [address] [place] [address] Performed By: #### 5 8410-2 ####[facility] LABORATORYIA [id number] [place] [id number] [facility] CONSULT PROGon 01-18-2023 CONSULT PROG HNO ID: [id number] Author: Jc Pennington MD Service: Hospital Medicine Author Type: Physician Type: Consult Progress Note Filed: 01/18/2023 2:52 PM Note Text: DEPARTMENT OF HOSPITAL MEDICINE CONSULT PROGRESS NOTE SERVICE DATE: 01/18/2023 SERVICE TIME: 2:46 PM Primary Care Physician: MAINE Arias, PAWilfredoC NIGHT AND WEEKEND COVERAGE: [place] COVERAGE: Days: [phone], please contact via [employer] Nights: [phone] - floor: please page [facility] Hospitalist night cover [phone] - 4th floor: please page [facility] Hospitalist night cover [phone] - 5th floor: please page [facility] Hospitalist night cover [phone] Subjective INTERVAL HPI: Pt says she feels the same today. Noted KAMI with hyponatremia and hyperkalemia this morning. Being given NS IVF an kayexalate and monitoring on tele. All questions answered. MEDICATIONS: Reviewed Current Facility-Administered Medications Medication Dose Route Frequency furosemide 20 mg tab(s) (LASIX) 20 mg ORAL DAILY brimonidine 0.2 % 1 Drop (ALPHAGAN) 1 Drop BOTH EYES DAILY latanoprost 0.005 % 1 Drop (XALATAN) 1 Drop BOTH EYES AT BEDTIME acetaminophen 1,000 mg tab(s) (TYLENOL) 1,000 mg ORAL q 8 H oxyCODONE IR 5 mg tab(s) (ROXICODONE) 5 mg ORAL q 3 H PRN morphine 2 mg injection 2 mg INTRAVENOUS q 2 H PRN ondansetron 4 mg tab(s) (ZOFRAN) 4 mg ORAL q 6 H PRN Or ondansetron (PF) 4 mg injection (ZOFRAN) 4 mg INTRAVENOUS q 6 H PRN magnesium hydroxide 400 mg/5 mL 30 mL (MOM) 30 mL ORAL DAILY PRN [START ON 01/19/2023] bisacodyl EC 10 mg tab(s) (DULCOLAX) 10 mg ORAL DAILY aluminum-magnesium hydroxide-simethicone 200-200-20 mg/5 mL 30 mL 30 mL ORAL q 2 H PRN ferrous sulfate 325 mg tab(s) 325 mg ORAL BID w MEALS ascorbic acid (vitamin C) 500 mg tab(s) (VITAMIN C) 500 mg ORAL BID w MEALS docusate sodium 100 mg cap(s) (COLACE) 100 mg ORAL BID senna 17.2 mg tab(s) (SENOKOT) 17.2 mg ORAL AT BEDTIME rivaroxaban 10 mg tab(s) (XARELTO) 10 mg ORAL DAILY NaCl 0.9% iv flush bag 20 mL INTRAVENOUS PRN NaCl 0.9% iv infusion 100 mL/hr INTRAVENOUS CONTINUOUS Objective PHYSICAL EXAM: BP 110/59 Pulse 61 Temp (Src) 98.2 (Oral) Resp 16 Ht 5' 1 (1.55m) Wt 172 lb 2.9 oz (78.1kg) SpO2 98% BMI 32.55 kg/(m2). O2 Therapy: Room Air Physical Exam Performed: GENERAL: Alert, no distress, cooperative HEAD/SINUSES: No significant findings EYES: PERRLA, EOMI LUNGS: Lungs clear to auscultation, Good diaphragmatic excursion CARDIAC: Normal S1 and S2; no rubs, murmurs, or gallops ABDOMEN: Abdomen soft, non-tender, BS normal, No masses or organomegaly EXTREMITIES: no c/c/e Lines, Drains, and Airways Line Duration Peripheral 01/17/23 0715 Short Right Forearm 20 Gauge 1 day Reviewed lines and needs to be continued: REASONS: Intravenous fluids, Telemetry, and Electrolyte replacement DATA: Diagnostic tests reviewed for today's visit: Most recent labs and imaging results. Impression/Recommendations Kiki Moore is a 78 year old female with a past medical history of HTN, obesity, RA, spinal stenosis, and primary arthritis of the left knee who presents from the outpatient office of Dr. Box for a failed conservative management of left knee osteoarthritis. Patient is in the hospital for an elective TKR arthroscopy and medicine was asked to see patient for medical management. Pain well controlled post op. Active Problems: Status post total left knee replacement (POA: No) - POD1 for left total knee replacement - pain well controlled - PT/OT pending - pain control per primary - Encourage IS for atelectasis prevention - VTE ppx per primary KAMI: POA. Worsened this morning along with hyponatremia to 126 and hyperkalemia to 5.8. - Stop LR - Start NS@100 cc/hr - Stop potassium supplement - Hold Lisinopril - Avoid nephrotoxins - Monitor on tele - Recheck labs in AM - Continue to monitor RA (rheumatoid arthritis) (HCC) (POA: Yes) - on methotrexate weekly and plaquentil BID, both on hold per primary Hypertension (POA: Yes) - Continue home 20mg lasix daily for now - Hold home lisinopril as above Obesity, Class I, BMI 30-34.9 (POA: Yes) - recommend follow up with PCP, health healthy diet, activity as tolerated VTE PROPHYLAXIS: As per primary team Disposition: To be determined Plan of care discussed with: Patient, Care Management, and RN SIGNATURE: Jc Pennington MD PATIENT NAME: Kiki Moore DATE: January 18, 2023 TIME: 2:46 PM etx [phone] [facility] THERAPY NTon 01-18-2023 THERAPY NT HNO ID: [id number] Author: Katerine Shook, PT, DPT Service: Physical Therapy Author Type: Physical Therapist Type: Therapy (PT/OT/Speech/Resp) Filed: 01/18/2023 2:43 PM Note Text: Physical Therapy Treatment SERVICE DATE: 01/18/2023 SERVICE TIME: 1405 to 1428 ROOM: [place] [address] Total Joint Replacement Discharge Readiness: Pending Physical Therapy Clearance Recommended Discharge Disposition: Acute Rehab Recommended Discharge Disposition Comments: Pt requiring mod A for transfers and unable to tolerate increased ambulation d/t difficulty using the walker with UEs. Pt would benefit from post-acute PT at [place]. Recommended Discharge Disposition Due to: Patient requires an active, intensive rehabilitation therapy program due to:, decline in functional status requiring daily skilled care Recommended Discharge Equipment: No equipment needs anticipated PT 6 Clicks Score: 11 Precautions/Activity Restrictions: Total Knee Replacement, Weight Bearing Restrictions Extremity With Weight Bearing Restricted: Left Lower Extremity Left Lower Extremity Weight Bearing Status: WBAT Current Hospital Course: s/p L TKA 01/17 (Juanita) Reason for Hospital Admission: s/p L TKA Response to Therapy Interventions: Good Participation in Activities Physical Therapy Problem List: Decreased Range Of Motion, Decreased Strength, Functional Mobility Impairment Treatment Interventions: Education, Joint Mobility, Strengthening, Functional Mobility Training Home Environment Patient Lives With: Self/Alone Assistance Available: PRN (son lives across the street, daughter lives down the road; dtr will be staying with pt but works during the day (son and DIL within minutes if needed during the day)) Entry To Home: Stairs, With Rail (b hr) Number Of Stairs Into Home: 5 Number Of Stairs To Bed/Bath: 1st floor bed and bath Tub/Shower Type: WIS - has 1 suction bar, no chair Laundry: 1st floor- family can A Equipment Owned: Cane, Walker- Wheeled, Commode- Raised, Grab Bars- Shower, Lift Chair, Snapper On, Sock Aid, Long Handled Shoe Horn Prior Functional Level: Within Functional Limits Prior Functional Level Comments: IND ADLs and amb with RW at all times, + drive Baseline Cognition: Oriented to self, Oriented to place, Oriented to time Subjective: Pt in the chair 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, so I need to be ready for that CURRENT FUNCTIONAL STATUS: Most recent performance Current Functional Mobility Assist Level Additional Information Rolling Supine to Sit Minimal Assistance, Additional Information Sit to Supine Moderate Assistance (AX2) Scooting Sit to Stand Moderate Assistance Stand to Sit Minimal Assistance Bed to Chair Toilet/Commode Moderate Assistance Gait Moderate Assistance, Additional Information Gait Device: Wheeled Walker Gait Distance (feet): 2x1, 1x1 Pt still with difficulty putting increased weight on L LE- unable to use UEs effectively on the walker d/t issues with both elbows, only able to tolerate a few steps forwards and then BSC was placed behind her. Pt with more difficulty when attempting to step backwards to the chair on the 2nd trial and chair was pulled up behind her Stairs Curb Step Car Transfer Blank germain indicate activity not attempted Gait Deviations Left Lower Extremity: Weight bearing decreased, Step length decreased, Stance time decreased, Push off during terminal stance decreased, Heel strike during initial stance decreased Range of Motion: WFL Except (L knee AA flexion ~60 deg) Strength: WFL (L knee atleast 3/5) JH-HLM: 4: Move to chair / commode Learning/Educational Needs: Discharge Plan, Functional Activities/Mobility, Plan of Care, Rehabilitation Techniques and Procedures, PT In-Hospital Exercise Program Goals for Plan of Care: Patient/Caregiver Goals: Go Home Goals: Patient will demonstrate progress with functional mobility to allow safe discharge to home with available support and/or physical assistance. Progress Toward Goals: Progressing slower than expected Due To: weakness Rehab Potential: Good Patient will be discontinued from Physical Therapy when no further skilled needs are identified in this setting. PLAN: PT Frequency: Twice Daily Plan of Care developed with: Patient TREATMENT INTERVENTIONS: Therapy Diagnosis: Reduced mobility-other Interventions Provided: Gait Training (48345), Therapeutic Exercise (14849) Therapeutic Exercise (02406) Treatment Minutes: 15 $ Therapeutic Exercise (04029) Billed Units: 1 unit Gait Training (45280) Treatment Minutes: 8 $ Gait Training (86908) Billed Units: 1 unit Training AND Education Provided in: Assistive Device Use, Benefits of In-Hospital Mobility, Discharge Planning, Equipment, Exercise Program, Gait Pattern, Reduction of Deviations, Handout Issued, Precautions/Restrictions, Pre-gait Activities, Role of Physical Therapy, Sitting Balance, Nam (more content not included)... [facility] THERAPY NT HNO ID: [id number] Author: Alysia Pereira OT/L Service: Occupational Therapy Author Type: Occupational Therapist Type: Therapy (PT/OT/Speech/Resp) Filed: 01/18/2023 1:43 PM Note Text: Occupational Therapy Evaluation SERVICE DATE: 01/18/2023 SERVICE TIME: 1049 to 1127 ROOM: [place] [address] Total Joint Replacement Discharge Readiness: Pending Occupational Therapy Clearance Recommended Discharge Disposition: Home Recommended Discharge Disposition Comments: Pending hospital course Recommended Discharge Equipment: To Be Determined OT 6 Clicks Score: 18 Precautions/Activity Restrictions: Total Knee Replacement, Weight Bearing Restrictions Extremity With Weight Bearing Restricted: Left Lower Extremity Left Lower Extremity Weight Bearing Status: WBAT Current Hospital Course: s/p L TKA 01/17 (Juanita) Reason for Hospital Admission: s/p L TKA Response to Therapy Interventions: Good Participation in Activities Continued Skilled Needs Due to: Functional Impairment Occupational Therapy Problem List: Impaired Self Care, Decreased Activity Tolerance, Functional Mobility Impairment, Balance Impaired, Sensory Deficit Cognition/Communication Deficits Responsiveness: Alert, Awake Follows Commands: 3-step Commands Treatment Interventions: Education, Self Care/Home Management, Energy Conservation Training, Joint Mobility, Strengthening, Functional Mobility Training, Balance Training Home Environment Patient Lives With: Self/Alone Assistance Available: PRN (son lives across the street, daughter lives down the road; dtr will be staying with pt but works during the day (son and DIL within minutes if needed during the day)) Entry To Home: Stairs, With Rail (b hr) Number Of Stairs Into Home: 5 Number Of Stairs To Bed/Bath: 1st floor bed and bath Tub/Shower Type: WIS - has 1 suction bar, no chair Laundry: 1st floor- family can A Equipment Owned: Cane, Walker- Wheeled, Commode- Raised, Grab Bars- Shower, Lift Chair, Snapper On, Sock Aid, Long Handled Shoe Horn Prior Functional Level: Within Functional Limits Prior Functional Level Comments: IND ADLs and amb with RW at all times, + drive Baseline Cognition: Oriented to self, Oriented to place, Oriented to time 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 CURRENT FUNCTIONAL STATUS: Most recent performance Current Activities of Daily Living Assist Level Additional Information Feeding Set Up Grooming Set Up (seated) Bathing Upper Body Stand By Assistance Bathing Lower Body Moderate Assistance Dressing Upper Body Stand By Assistance Dressing Lower Body Moderate Assistance Toileting Moderate Assistance Instrumental Activities of Daily Living Assist Level Additional Information Meal/Beverage Prep Cleaning Laundry Medication Management with Strategies Functional Mobility Assist Level Additional Information Rolling Supine to Sit Sit to Supine Scooting Sit to Stand Moderate Assistance Stand to Sit Contact Guard Assistance Bed to Chair Toilet/Commode Shower Functional Mobility Minimal Assistance, Moderate Assistance Wheeled Walker Blank germain indicate activity not attempted Learning/Educational Needs: Discharge Plan, Equipment, Functional Activities/Mobility, Plan of Care, Precautions, Positioning, Rehabilitation Techniques and Procedures, Self Care, Safety Goals for Plan of Care: Patient/Caregiver Goals: Reduce ADL/IADL barriers Goals: Patient will demonstrate progress with self-care, cognitive and/or coping needs identified to allow safe discharge to home with available support and/or physical assistance. Rehab Potential: Good Patient will be discontinued from Occupational Therapy when no further skilled needs are identified in this setting. PLAN: OT Frequency: 5 Times Per Week Plan of Care developed with: Patient TREATMENT INTERVENTIONS: Therapy Diagnosis: Reduced mobility-other, Decreased activities of daily living (ADL), Muscle Weakness (generalized), General symptoms and signs-other Interventions Provided: Evaluation, Self Chcf Management (80048) $ Evaluation - Low (46684) Billed Units: 1 unit Self Chcf Management (23320) Treatment Minutes: 23 $ Self Chcf Management (89797) Billed Units: 2 units Training AND Education Provided in: Adaptive Equipment/DME, Assistive Device Use, Benefits of In-Hospital Mobility, Discharge Planning, Expected Functional Level, Grooming Tasks, Lower Extremity Dressing, Positioning, Precautions/Restrictions, Role of Occupational Therapy, Standing Balance to Improve Bend with ADLs/Self-Care, Transfer - Sit to Stand The Following Therapeutic Skills Were Used: Activity Dosing, Cues for Sequencing/Proper Technique for Activity, Cuing Verbal, Movement Fa (more content not included)... [facility] THERAPY NT HNO ID: [id number] Author: Katerine Shook, PT, DPT Service: Physical Therapy Author Type: Physical Therapist Type: Therapy (PT/OT/Speech/Resp) Filed: 01/18/2023 9:40 AM Note Text: Physical Therapy Treatment SERVICE DATE: 01/18/2023 SERVICE TIME: 0850 to 0915 ROOM: [place] [address] Total Joint Replacement Discharge Readiness: Pending Physical Therapy Clearance Recommended Discharge Disposition: Outpatient Physical Therapy Recommended Discharge Disposition Comments: Pt has OP PT schedule for 01/20. May need to consider alternative DC plan if unable to progress mobility. Recommended Discharge Equipment: No equipment needs anticipated PT 6 Clicks Score: 11 Pt with improved ROM and strength and L LE this date but still with difficulty WBing and ambulating. Will progress as able, but likely will not be ready for DC home today from PT standpoint. Precautions/Activity Restrictions: Total Knee Replacement, Weight Bearing Restrictions Extremity With Weight Bearing Restricted: Left Lower Extremity Left Lower Extremity Weight Bearing Status: WBAT Current Hospital Course: s/p L TKA 01/17 (Juanita) Reason for Hospital Admission: s/p L TKA Response to Therapy Interventions: Good Participation in Activities, Requires Additional Time to Complete Activities Physical Therapy Problem List: Decreased Range Of Motion, Decreased Strength, Functional Mobility Impairment Treatment Interventions: Education, Joint Mobility, Strengthening, Functional Mobility Training Home Environment Patient Lives With: Self/Alone Assistance Available: PRN (son lives across the street, daughter lives down the road; dtr will be staying with pt but works during the day (son and DIL within minutes if needed during the day)) Entry To Home: Stairs, With Rail (b hr) Number Of Stairs Into Home: 5 Number Of Stairs To Bed/Bath: 1st floor bed and bath Tub/Shower Type: WIS - has 1 suction bar, no chair Laundry: 1st floor- family can A Equipment Owned: Cane, Walker- Wheeled, Commode- Raised, Grab Bars- Shower, Lift Chair, Snapper On, Sock Aid (leg certified medication technician) Prior Functional Level: Within Functional Limits Prior Functional Level Comments: IND ADLs and amb with RW at all times, + drive Subjective: Pt in bed , pleasant and agreeable to therapy CURRENT FUNCTIONAL STATUS: Most recent performance Current Functional Mobility Assist Level Additional Information Rolling Supine to Sit Minimal Assistance, Additional Information HOB elevated (pt sleeps in a chair at baseline); Pt able to slide B LEs OOB to R and used the bedrail to pull herself over. Pt pulling up therapist to sit fulling upright Sit to Supine Moderate Assistance (AX2) Scooting Sit to Stand Moderate Assistance Stand to Sit Minimal Assistance Bed to Chair Toilet/Commode Moderate Assistance Gait Moderate Assistance Gait Device: Wheeled Walker Gait Distance (feet): 2x2 Pt still with difficulty putting increased weight on L LE, only able to tolerate a few steps Stairs Curb Step Car Transfer Blank germain indicate activity not attempted Gait Deviations Left Lower Extremity: Weight bearing decreased, Step length decreased, Stance time decreased, Push off during terminal stance decreased, Heel strike during initial stance decreased Range of Motion: WFL Except (L knee AA flexion ~50 deg) Strength: WFL (L knee atleast 3/5) -HLM: 4: Move to chair / commode Learning/Educational Needs: Discharge Plan, Functional Activities/Mobility, Plan of Care, Rehabilitation Techniques and Procedures, PT In-Hospital Exercise Program Goals for Plan of Care: Patient/Caregiver Goals: Go Home Goals: Patient will demonstrate progress with functional mobility to allow safe discharge to home with available support and/or physical assistance. Progress Toward Goals: Progressing as expected Rehab Potential: Good Patient will be discontinued from Physical Therapy when no further skilled needs are identified in this setting. PLAN: PT Frequency: Twice Daily Plan of Care developed with: Patient TREATMENT INTERVENTIONS: Therapy Diagnosis: Reduced mobility-other Interventions Provided: Therapeutic Activity (11492), Therapeutic Exercise (65680) Therapeutic Exercise (10923) Treatment Minutes: 10 $ Therapeutic Exercise (86406) Billed Units: 1 unit Therapeutic Activity (24503) Treatment Minutes: 15 $ Therapeutic Activity (41975) Billed Units: 1 unit Training AND Education Provided in: Assistive Device Use, Bed Mobility, Benefits of In-Hospital Mobility, Discharge Planning, Equipment, Exercise Program, Gait Pattern, Reduction of Deviations, Handout Issued, Precautions/Restrictions, Pre-gait Activities, Role of Physical Therapy, Sitting Balance, Standing Balance, Transfers The Following Therapeutic Skills Were Used: Activity Dosing, Cues for Sequencing/Proper Technique for Activity, Facilitation of Joint Range of Motion, Repetitive Task Learning, Physica (more content not included)... [facility] ANES POSTPROC EVALon 023 ANES POSTPROC EVAL HNO ID: [id number] Author: Pedro Santana MD Service: Anesthesiology Author Type: Anesthesiologist Type: Anesthesia Postprocedure Evaluation Filed: 01/17/2023 3:48 PM Note Text: POST ANESTHESIA EVALUATION NOTE : 1945 Procedure Summary Date: 01/17/23 Room / Location: [place] [address] / AV OR Anesthesia Start: 734 Anesthesia Stop: 1103 Procedure: ARTHROPLASTY REPLACE JOINT TOTAL KNEE AIDA (Left: Knee) Diagnosis: Primary osteoarthritis of left knee (Primary osteoarthritis of left knee [M17.12]) Surgeons: Shan Box MD Responsible Provider: Pedro Santana MD Anesthesia Type: spinal, regional ASA Status: 3 Anesthesia Type: spinal, regional Last Vitals Vitals Value Taken Time BP 106/47 01/17/23 1540 Temp 37.1 ?C (98.7 ?F) 01/17/23 1101 Pulse 62 01/17/23 1442 Resp 16 01/17/23 1442 SpO2 94 % 01/17/23 1547 Vitals shown include unvalidated device data. Post Anesthesia Patient Status Patient Evaluation: bedside. Anticipated Disposition: inpatient floor planned admission. Neurological Status: aware and responsive. Pulmonary Status: breathing comfortably on supplemental oxygen Airway Control: returned to baseline unsupported. Cardiovascular Status: stable. Pain Management: clinically adequate Postoperative Hydration: acceptable. Intraoperative Events: no significant anesthesia events Post Operative Nausea/Vomiting Status: no significant post operative nausea or vomiting Recommendation: continue current plan of care. Anesthesia Observations No Documentation SIGNATURE: Pedro Santana MD PATIENT NAME: Kiki Moore DATE: January 17, 2023 TIME: 3:48 PM CSN: [id number] [facility] ANES PRE-OPon 01-17-2023 ANES PRE-OP HNO ID: [id number] Author: Pedro Santana MD Service: Anesthesiology Author Type: Anesthesiologist Type: Anesthesia Preprocedure Evaluation Filed: 01/17/2023 7:23 AM Note Text: ANESTHESIOLOGY DAY OF SURGERY NOTE : 1945 Procedure Information Date/Time: 01/17/23729 Procedure: ARTHROPLASTY REPLACE JOINT TOTAL KNEE AIDA (Left: Knee) Location: [facility] / AV OR Surgeons: Shan Box MD Estimated body mass index is 31.55 kg/m? as calculated from the following: Height as of 12/23/22: 154.9 cm (5' 1 ). Weight as of 12/23/22: 75.8 kg (167 lb). Most recent hematocrit and potassium results: Hematocrit 30.6 12/23/2022 Potassium 4.9 12/30/2022 Relevant Problems CARDIO (+) DVT of popliteal vein (HCC) (+) Hypertension (+) Pulmonary hypertension (HCC) NEURO-PSYCH (+) Stroke (HCC) Other (+) Arthritis of left hip (+) RA (rheumatoid arthritis) (HCC) (+) Rheumatoid arthritis I - PHYSICAL EVALUATION AIRWAY Patient intubated: No. Tracheostomy tube not present Mallampati: II. TM distance: >3 FB. Neck ROM: full ROM without neurological symptoms. Mouth opening: adequate. Short neck: no. Thick neck: no DENTAL Dental findings: teeth intact. Additional exam findings: no II - ANESTHESIA PLAN ASA Score: 3 Anesthetic Plan: spinal and regional The patient is not a current smoker. NPO Status: adequate Beta Bryon Monitoring Plan Monitoring plan: standard ASA. Post Procedure Analgesic Plan Postoperative analgesic plan: multimodal analgesia. Informed Consent Anesthetic risks, benefits, alternatives, personnel and consent discussed: yes. Patient / Responsible Constitution Party agrees to proceed: yes Patient / Surrogate agrees to blood products: blood products not planned Significant changes in the patient condition since the History and Physical, not otherwise documented in primary service progress note: no. Potential Anesthesia issues that may suggest increased risk of complications or contraindication to planned procedure: none. Vitals Value Taken Time BP 147/71 01/17/2352 Pulse 62 01/17/2352 Resp 16 01/17/23651 Temp 36.1 ?C (97 ?F) 01/17/23651 SpO2 95 % 01/17/23651 Facility-Administered Medications as of 01/17/2023 Medication Dose Route Frequency - [COMPLETED] acetaminophen 1,000 mg tab(s) (TYLENOL) 1,000 mg ORAL Pre-Op Once - [COMPLETED] meloxicam 7.5 mg tab(s) (MOBIC) 7.5 mg ORAL Pre-Op Once - lidocaine (PF) 10 mg/mL (1 %) 1-2 mg injection (XYLOCAINE) 0.1-0.2 mL INTRADERMAL PRN - lactated ringers iv infusion 5-30 mL/hr INTRAVENOUS CONTINUOUS - NaCl 0.9% iv flush bag 20 mL INTRAVENOUS PRN - ceFAZolin iv piggyback 2 g in D5W (iso-osmotic) 100 mL (ANCEF) 2 g INTRAVENOUS Pre-Op Once - tranexamic acid (CYKLOKAPRON) in NaCl 0.7% 1,000 mg 100 mL 1,000 mg INTRAVENOUS Pre-Op Once - tranexamic acid (CYKLOKAPRON) in NaCl 0.7% 1,000 mg 100 mL 1,000 mg INTRAVENOUS ONCE - [COMPLETED] dexAMETHasone sodium phosphate (PF) 8 mg injection (DECADRON) 8 mg INTRAVENOUS Pre-Op Once - [COMPLETED] promethazine 12.5 mg tab(s) (PHENERGAN) 12.5 mg ORAL Pre-Op Once Outpatient Medications as of 01/17/2023 Medication Sig - furosemide (LASIX) 20 mg tablet Take 20 mg by mouth every morning. - potassium chloride (K-TAB) 10 mEq tablet TAKE 1 TABLET (10 MEQ) BY MOUTH IN THE MORNING - latanoprost (XALATAN) 0.005 % ophthalmic solution 1 Drop daily at bedtime. - FOLIC ACID 1 MG TAB Take four tablets po every Monday - ALPHAGAN P 0.1 % EYE DROPS one drop each eye daily - clindamycin (CLEOCIN) 300 mg capsule Take 1 tablet by mouth 1 hour prior to procedure and 1 tablet by mouth 6 hours after procedure I have interviewed and examined the patient. I have reviewed the medical record and/or the pre-anesthesia evaluation, pertinent labs, and test results. This contains updated information obtained within 48 hours of Surgery/Procedure. SIGNATURE: Pedro Santana MD PATIENT NAME: Kiki Moore DATE: January 17, 2023 TIME: 7:23 AM CSN: [id number] [facility] CONSULTon 01-17-2023 CONSULT HNO ID: [id number] Author: Miguelina Pedraza PA-C Service: Hospital Medicine Author Type: Physician Lpc Type: Consults Filed: 01/17/2023 9:18 PM Note Text: DEPARTMENT OF HOSPITAL MEDICINE INITIAL CONSULT SERVICE DATE: 01/17/2023 SERVICE TIME: 9:08 PM Primary Care Physician: MAINE Arias PA-C NIGHT AND WEEKEND COVERAGE: [employer] COVERAGE: Days: [phone], please contact via [employer] Nights: [phone] - 3rd floor: please page Hospitalist night cover [phone] - 4th floor: please page CC Hospitalist night cover [phone] - 5th floor: please page Hospitalist night cover [phone] REASON FOR CONSULT: medical management REQUESTING PHYSICIAN: Dr Box Subjective CHIEF COMPLAINT: s/p left TKR HPI: This is a 78 year old female with a past medical history of HTN, obesity, RA, spinal stenosis, and primary arthritis of the left knee who presents from the outpatient office of Dr. Box for a failed conservative management of left knee osteoarthritis. Patient is in the hospital for an elective TKR arthroscopy and medicine was asked to see patient for medical management. Travel Screening Question Response Have you been in contact with someone who was sick? -- Do you have any of the following new or worsening symptoms? -- Have you traveled internationally or domestically in the last month? No Travel History Travel since 12/17/22 No documented travel since 12/17/22 PAST MEDICAL HISTORY Diagnosis Date Back pain Bursitis DVT of popliteal vein (HCC) Glaucoma Hypertension OA (osteoarthritis) Obesity RA (rheumatoid arthritis) (HCC) Rotator cuff syndrome Snoring Spinal stenosis, lumbar Stroke (HCC) PAST SURGICAL HISTORY Procedure Laterality Date ARTHRP ACETBLR/PROX FEM PROSTC AGRFT/ALGRFT right Hip replacement, total 2001, revision 06/2014 ARTHRP KNE CONDYLEANDPLATU MEDIALANDLAT COMPARTMENTS right Knee replacement, total 1998, 2007 SECTION HX x 2 births FOOT SURGERY HX tumors removed left and right feet GALL BLADDER NO STIMULATION LAMINECTOMY W/O FFD 1/2 VERT SEG LUMBAR 05/22/1992 Dr Tejada PAST SURGICAL HISTORY OF Right 06/22/2014 revision right toal hip replacement PFO CLOSURE 2017 ROTATOR CUFF REPAIR TOTAL HIP REPLACEMENT Left FAMILY HISTORY Problem Relation Age of Onset other (heart attack [Other]) Mother Arthritis Father Arthritis Maternal Grandfather Arthritis Maternal Grandmother Cancer Brother Cancer Father Social History Tobacco Use Smoking status: Never Smokeless tobacco: Never Substance Use Topics Alcohol use: No Drug use: No PRIOR TO ADMISSION MEDICATIONS: hydrOXYchloroQUINE (PLAQUENIL) 200 mg tablet, Take 200 mg by mouth twice daily with meals., Disp: , Rfl: , 01/16/2023 furosemide (LASIX) 20 mg tablet, Take 20 mg by mouth every morning., Disp: , Rfl: , 01/16/2023 potassium chloride (K-TAB) 10 mEq tablet, TAKE 1 TABLET (10 MEQ) BY MOUTH IN THE MORNING, Disp: , Rfl: , 01/16/2023 lisinopril (ZESTRIL) 40 mg tablet, Take 1 tablet by mouth once daily., Disp: , Rfl: , 01/16/2023 aspirin, enteric coated (ECOTRIN LOW STRENGTH) 81 mg EC tablet, Take 1 tablet by mouth once daily., Disp: , Rfl: , 01/16/2023 methotrexate 2.5 mg tablet, Take 1 tablet by mouth every Monday. 6 tablets ONCE WEEKLY, Disp: , Rfl: , 01/16/2023 Cholecalciferol, Vitamin D3, (VITAMIN D-3) 50 mcg (2,000 unit) cap, Take 1 capsule by mouth once daily., Disp: , Rfl: , 01/16/2023 latanoprost (XALATAN) 0.005 % ophthalmic solution, 1 Drop daily at bedtime., Disp: , Rfl: , 01/16/2023 FOLIC ACID 1 MG TAB, Take four tablets po every Monday, Disp: , Rfl: 0, 01/16/2023 ALPHAGAN P 0.1 % EYE DROPS, one drop each eye daily, Disp: , Rfl: 0, 01/16/2023 predniSONE (DELTASONE) 5 mg tablet, Take 1 tablet by mouth as needed (daily only as needed for arthritis pain)., Disp: , Rfl: clindamycin (CLEOCIN) 300 mg capsule, Take 1 tablet by mouth 1 hour prior to procedure and 1 tablet by mouth 6 hours after procedure, Disp: 2 capsule, Rfl: 1 Current Facility-Administered Medications Medication Dose Route Frequency [START ON 01/18/2023] lisinopril 40 mg tab(s) (ZESTRIL) 40 mg ORAL DAILY [START ON 01/18/2023] furosemide 20 mg tab(s) (LASIX) 20 mg ORAL DAILY [START ON 01/18/2023] brimonidine 0.2 % 1 Drop (ALPHAGAN) 1 Drop BOTH EYES DAILY latanoprost 0.005 % 1 Drop (XALATAN) 1 Drop BOTH EYES AT BEDTIME lactated ringers iv infusion 100 mL/hr INTRAVENOUS CONTINUOUS acetaminophen 1,000 mg tab(s) (TYLENOL) 1,000 mg ORAL q 8 H oxyCODONE IR 5 mg tab(s) (ROXICODONE) 5 mg ORAL q 3 H PRN morphine 2 mg injection 2 mg INTRAVENOUS q 2 H PRN ondansetron 4 mg tab(s) (ZOFRAN) 4 mg ORAL q 6 H PRN Or ondansetron (PF) 4 mg injection (ZOFRAN) 4 mg INTRAVENOUS q 6 H PRN [START ON 01/18/2023] magnesium hydroxide 400 mg/5 mL 30 mL (MOM) 30 mL ORAL DAILY PRN [START ON 01/19/2023] bisacodyl EC 10 mg tab(s) (DULCOLAX) 10 mg ORAL DAILY aluminum-magn (more content not included)... [facility] OPERATIVE NOon 01-17-2023 OPERATIVE NO HNO ID: [id number] Author: Shan Box MD Service: Orthopaedic Surgery Author Type: Physician Type: Operative Report Filed: 01/17/2023 10:23 AM Note Text: [facility] OPERATIVE REPORT PATIENT NAME: Kiki Moore AGE: [age] year old LOG ID: [id number] Surgery Date: 01/17/2023 SURGEON: Shan Box MD HISTOLOGY SPECIALIST: Judit Jarrell PA-C, SA, her assistance consisted of assistance with retraction, positioning and closing of the wound No resident physicians were available to participate in the case. PROCEDURE: LEFT TOTAL KNEE REPLACEMENT-POSTERIOR STABILIZED Anesthesia: Choice - Anesthesia Consult Preop Diagnosis: Pre-Op Diagnosis Codes: * Primary osteoarthritis of left knee [M17.12] Postop Diagnosis: Same as Pre-Op Diagnosis Codes: * Primary osteoarthritis of left knee [M17.12] BMI: Estimated body mass index is 31.55 kg/m? as calculated from the following: Height as of 12/23/22: 154.9 cm (5' 1 ). Weight as of 12/23/22: 75.8 kg (167 lb). INDICATIONS: This is a 78 year old year old female with osteoarthritis of the left knee. She was having severe pain globally in the left knee. Nonoperative management with anti-inflammatory and analgesic medication, cortisone and lubricant injections, activity modification, use of ambulatory aides and physical therapy has been exhausted. The pain has started to interfere with activities of daily living. The decision was made to proceed with a total knee arthroplasty. Risks, benefits, and alternatives were discussed. She expressed understanding and consented to the procedure as outlined above. The patient was seen by [facility] for pre-operative optimization. Marizol-operative blood management and the potential for blood transfusion were discussed with risks and options clearly outlined. The patient has consented to the use of banked allogenic blood if medically necessary. IMPLANTS: STARFACE Orthopaedics Total Knee System SIZE TYPE Posterior Stabilized Femur 3 Aida Tibia 3 Aida Patella 31 mm [place] Polyethylene 9 TS Aida OPERATIVE FINDINGS: There was complete loss of cartilaginous surface from the patellofemoral, medial and lateral compartments of the left knee. OPERATIVE PROCEDURE: The patient was identified and brought into the Operating Room by the anesthesia and nursing team. Anesthesia was successfully performed. The patient was then positioned supine on the operating room table. Intravenous antibiotic prophylaxis dosing was confirmed. The left lower extremity was then prepped and draped in the usual sterile fashion with Chloraprep scrub. Tranexamic acid was given for blood conservation. A surgical time-out was performed immediately preceding the incision with all personnel in the operating room; the patient identity was again confirmed, the surgical site and extremity were identified and confirmed, X-rays were reviewed, and availability of the appropriate surgical equipment was established. The knee was approached through a 5 inch midline incision. Dissection was carried down. The extensor mechanism was opened in modified median parapatellar fashion. The kneecap was identified and everted. We debrided circumferentially about the kneecap removing the synovium and releasing laterally. We then osteotomized the undersurface of the patella and utilized a 31 mm patellar button, which was medialized for better patellar tracking. A partial lateral facetectomy was also accomplished. Attention was then turned to the knee and a total synovectomy was accomplished. We then removed osteophytes circumferentially about the medial and lateral femoral condyle. The knee was flexed to 90 degrees and an intramedullary guide was inserted, which allowed us then to cut the distal femur at 4-5 degrees from the long axis of the femur. We then brought the knee into extension and osteotomized the proximal tibia parallel to the distal femoral cut. With this accomplished, we then debrided the area and removed the remains of the medial meniscus and the posterior horn of the medial meniscus and remains of the cruciate ligaments and the lateral meniscus. We then put in our spacer block testing gauge, which showed that the extension gap was in neutral valgus-varus position. We flexed the knee to 90 degrees and inserted the spacer block. We measured the femur prosthetic size as a 3. We then put a size [address] allowing us to osteotomize anteriorly, posteriorly, and anterior and posterior chamfer cuts. We then brought the tibia forward and we prepared the tibia for a size 3 tibia and this was pinned into place. The tibial insert size 9 was inserted and we had excellent flexion and extension gap equalization, which was verified with the spacer block office director. Trial prosthesis was then removed. The tourniquet was deflated and hemostasis was obtained. We then jet lav (more content not included)... Normal [facility] THERAPY NTon 01-17-2023 THERAPY NT HNO ID: [id number] Author: Katerine Shook, PT, DPT Service: Physical Therapy Author Type: Physical Therapist Type: Therapy (PT/OT/Speech/Resp) Filed: 01/17/2023 2:36 PM Note Text: Physical Therapy Evaluation SERVICE DATE: 01/17/2023 SERVICE TIME: 1400 to 1428 ROOM: [facility] () Total Joint Replacement Discharge Readiness: Pending Physical Therapy Clearance Recommended Discharge Disposition: Outpatient Physical Therapy Recommended Discharge Disposition Comments: Pt has appt schedule 01/20 Recommended Discharge Equipment: No equipment needs anticipated PT 6 Clicks Score: 11 Precautions/Activity Restrictions: Total Knee Replacement, Weight Bearing Restrictions Extremity With Weight Bearing Restricted: Left Lower Extremity Left Lower Extremity Weight Bearing Status: WBAT Current Hospital Course: s/p L TKA 01/17 (Juanita) Reason for Hospital Admission: s/p L TKA Response to Therapy Interventions: Pain, Low Activity Tolerance, Requires Additional Time to Complete Activities, Requires Encouragement to Complete Activities Continued Skilled Needs Due to: Functional Mobility/Skill Impairments Physical Therapy Problem List: Decreased Range Of Motion, Decreased Strength, Functional Mobility Impairment Treatment Interventions: Education, Joint Mobility, Strengthening, Functional Mobility Training Home Environment Patient Lives With: Self/Alone Assistance Available: PRN (son lives across the street, daughter lives down the road; dtr will be staying with pt but works during the day (son and DIL within minutes if needed during the day)) Entry To Home: Stairs, With Rail (b hr) Number Of Stairs Into Home: 5 Number Of Stairs To Bed/Bath: 1st floor bed and bath Tub/Shower Type: WIS - has 1 suction bar, no chair Laundry: 1st floor- family can A Equipment Owned: Cane, Walker- Wheeled, Commode- Raised, Grab Bars- Shower, Lift Chair, Snapper On, Sock Aid (leg certified medication technician) Prior Functional Level: Within Functional Limits Prior Functional Level Comments: IND ADLs and amb with RW at all times, + drive Subjective: Pt in bed, sore but agreeable to therapy CURRENT FUNCTIONAL STATUS: Most recent performance Current Functional Mobility Assist Level Additional Information Rolling Supine to Sit Moderate Assistance (A X 2, HOB elevated, A L LE and A at trunk to sit up) Sit to Supine Moderate Assistance (AX2) Scooting Sit to Stand Moderate Assistance Stand to Sit Minimal Assistance Bed to Chair Toilet/Commode Gait Moderate Assistance, Additional Information Gait Device: Wheeled Walker Gait Distance (feet): 1 (SIDESTEPPING to R.) Pt unable to take any forward steps d/t pain, did not want to put any weight on L LE. Pt was able to take 3 small sidesteps to R and was able to do a little WBing on L when doing so Stairs Curb Step Car Transfer Blank germain indicate activity not attempted Gait Deviations Left Lower Extremity: Weight bearing decreased, Step length decreased, Stance time decreased, Push off during terminal stance decreased, Heel strike during initial stance decreased Range of Motion: WFL Except (L knee AA flexion ~30 deg- painful/guarded) Strength: WFL Except (L knee <3/5- painful- unable to SLR but was able to LAQ) JH-HLM: 4: Move to chair / commode Learning/Educational Needs: Discharge Plan, Functional Activities/Mobility, Plan of Care, Rehabilitation Techniques and Procedures, PT In-Hospital Exercise Program Goals for Plan of Care: Patient/Caregiver Goals: Go Home Goals: Patient will demonstrate progress with functional mobility to allow safe discharge to home with available support and/or physical assistance. Rehab Potential: Good Patient will be discontinued from Physical Therapy when no further skilled needs are identified in this setting. PLAN: PT Frequency: Twice Daily Plan of Care developed with: Patient TREATMENT INTERVENTIONS: Therapy Diagnosis: Reduced mobility-other Interventions Provided: Evaluation, Therapeutic Exercise (36612), Therapeutic Activity (38809) $ Evaluation-Low (76434) Billed Units: 1 unit Therapeutic Exercise (48254) Treatment Minutes: 5 Therapeutic Activity (73597) Treatment Minutes: 8 $ Therapeutic Activity (01720) Billed Units: 1 unit Training AND Education Provided in: Assistive Device Use, Bed Mobility, Benefits of In-Hospital Mobility, Discharge Planning, Equipment, Exercise Program, Gait Pattern, Reduction of Deviations, Handout Issued, Precautions/Restrictions, Pre-gait Activities, Role of Physical Therapy, Sitting Balance, Standing Balance, Transfers The Following Therapeutic Skills Were Used: Activity Dosing, Cues for Sequencing/Proper Technique for Activity, Facilitation of Joint Range of Motion, Repetitive Task Learning, Physical Assist, Task Analysis Learning Timed Code Treatment (minutes): 13 Skilled Treatment Time (minutes): 28 Please see discipline specific clinical documentation flows (more content not included)... [facility] XR KNEE 2V AP/LAT LTon 01-17 XR KNEE 2V AP/LAT LT * * *Final Report* * * DATE OF EXAM: Jan 17 2023 2:47PM VHX 5206 - XR KNEE 2V AP/LAT LT / PROCEDURE REASON: Post-operative / post-procedure assessment, asymptomatic * * * * Physician Interpretation * * * * HISTORY: Pain TECHNIQUE: Portable frontal and cross table lateral views of the left knee were obtained. COMPARISON: Left knee x-rays dated 10/26/2022, 01/16/2013 RESULT: There is diffuse suprapatellar soft tissue swelling and subcutaneous emphysema, compatible with postsurgical change status post left total knee arthroplasty with patellar resurfacing, new since 10/26/2022. The alignment is satisfactory. There is dressing material overlying the left knee. IMPRESSION: FINDINGS COMPATIBLE WITH POSTSURGICAL CHANGE STATUS POST LEFT TOTAL KNEE ARTHROPLASTY WITH PATELLAR RESURFACING, NEW SINCE 10/26/2022. Polisher And Buffer: MAGDALENE Transcribe Date/Time: Jan 17 2023 3:21P Dictated by : ROCCO STEWART MD This examination was interpreted and the report reviewed and electronically signed by: ROCCO STEWART MD on Jan 17 2023 3:23PM EST [id number] [facility] CNCOon 01-02-2023 CNCO Letter Text Normal [facility] Comprehensive metabolic 2000 panelon 12-30-2022 Albumin [Mass/Vol] 4.2 g/dL Normal 3.9-4.9 [facility] Comment on above: Order Comment: Speci men Type: BLOOD SPECIMENOrdering Facility: [facility] Address: [address] [place] [id number] Performed By: #### 2 4323-8 ####[facility] LABCLIA [id number] [place] [address] [place] ALP [Catalytic activity/Vol] 135 U/L High 34-123 [facility] Comment on above: Order Comment: Speci men Type: BLOOD SPECIMENOrdering Facility: [facility] Address: [address] [place] [address] Performed By: #### 2 4323-8 ####[facility] LABCLIA [id number] [place] [address] [place] ALT [Catalytic activity/Vol] 21 U/L Normal 7-38 [facility] Comment on above: Order Comment: Speci men Type: BLOOD SPECIMENOrdering Facility: [facility] Address: [address] [place] [address] Performed By: #### 2 4323-8 ####[facility] LABCLIA [id number] [place] [address] [place] Anion gap [Moles/Vol] 13 mmol/L Normal 9-[address] [facility] Comment on above: Order Comment: Speci men Type: BLOOD SPECIMENOrdering Facility: [facility] Address: [address] [place] [address] Performed By: #### 2 4323-8 ####[facility] LABCLIA [id number] [place] [address] [place] AST [Catalytic activity/Vol] 36 U/L High 13-35 [facility] Comment on above: Order Comment: Speci men Type: BLOOD SPECIMENOrdering Facility: [facility] Address: [address] [place], [place] [address] Performed By: #### 2 4323-8 ####[facility] LABCLIA [id number] [place] [address] [place] Bilirubin [Mass/Vol] 0.4 mg/dL Normal 0.2-1.3 [facility] Comment on above: Order Comment: Speci men Type: BLOOD SPECIMENOrdering Facility: [facility] Address: [address] Performed By: #### 2 4323-8 ####[facility] LABCLIA [id number] [place] [address] [place] Calcium [Mass/Vol] 9.2 mg/dL Normal 8.5-10.2 [facility] Comment on above: Order Comment: Speci men Type: BLOOD SPECIMENOrdering Facility: [facility] Address: [address] Performed By: #### 2 4323-8 ####[facility] LABCLIA [id number] [place] [address] [place] Chloride [Moles/Vol] 96 mmol/L Low 97-105 [facility] Comment on above: Order Comment: Speci men Type: BLOOD SPECIMENOrdering Facility: [facility] Address: [address] Performed By: #### 2 4323-8 ####[facility] LABCLIA [id number] [place] [address] [place] CO2 [Moles/Vol] 21 mmol/L Low 22-30 [facility] Comment on above: Order Comment: Speci men Type: BLOOD SPECIMENOrdering Facility: [facility] Address: [address] Performed By: #### 2 4323-8 ####[facility] LABCLIA [id number] [place] [address] [place] Creatinine [Mass/Vol] 1.15 mg/dL High 0.58-0.[address] [facility] Comment on above: Order Comment: Speci men Type: BLOOD SPECIMENOrdering Facility: [facility] Address: [address] Performed By: #### 2 4323-8 ####[facility] LABCLIA [id number] [place] [address] [place] ESTIMATED GLOMERULAR FILTRATION RATE 49 mL/min/1.73m??? Low >=60 [facility] Comment on above: Order Comment: Tamiko marshall Type: BLOOD SPECIMENOrdering Facility: [facility] Address: [address] [place] [address] Result Comment: Karen mated Glomerular Filtration Rate (eGFR) is calculated using the 2020 CKD-EPI creatinine equation. This equation utilizes serum creatinine, sex, and age as parameters. The creatinine assay has traceable calibration to isotope dilution-mass spectrometry. Refer to KDIGO guidelines for clinical interpretation. In patients with unstable renal function, e.g. those with acute kidney injury, the eGFR may not accurately reflect actual GFR. Performed By: #### 2 4323-8 ####[facility] LABCLIA [id number] [place] [address] [place] Glucose [Mass/Vol] 102 mg/dL High 74-99 [facility] Comment on above: Order Comment: Tamiko marshall Type: BLOOD SPECIMENOrdering Facility: [facility] Address: [address] [place] [address] Result Comment: The [place] [employer] (ADA) provides guidance for cutoff values for fasting glucose and random glucose. The ADA defines fasting as no caloric intake for at least 8 hours. Fasting plasma glucose results between 100 to 125 mg/dL indicate increased risk for diabetes (prediabetes). Fasting plasma glucose results greater than or equal to 126 mg/dL meet the criteria for diagnosis of diabetes. In the absence of unequivocal hyperglycemia, results should be confirmed by repeat testing. In a patient with classic symptoms of hyperglycemia or hyperglycemic crisis, random plasma glucose results greater than or equal to 200 mg/dL meet the criteria for diagnosis of diabetes. Reference: Standards of Medical Care in Diabetes 2016, [place] [employer]. Diabetes Care. 2016.39(Suppl 1). Performed By: #### 2 4323-8 ####[facility] LABCLIA [id number] [place] [address] [place] Potassium [Moles/Vol] 4.9 mmol/L Normal 3.7-5.[address] [facility] Comment on above: Order Comment: Speci men Type: BLOOD SPECIMENOrdering Facility: [facility] Address: [address] [place] [place] [address] Performed By: #### 2 4323-8 ####[facility] LABCLIA [id number] [place] [address] [place] Protein [Mass/Vol] 6.2 g/dL Low 6.3-8.0 [facility] Comment on above: Order Comment: Speci men Type: BLOOD SPECIMENOrdering Facility: [facility] Address: [address] [address] Performed By: #### 2 4323-8 ####[facility] LABCLIA [id number] [place] [address] [place] Sodium [Moles/Vol] 130 mmol/L Low 136-144 [facility] Comment on above: Order Comment: Speci men Type: BLOOD SPECIMENOrdering Facility: [facility] Address: [address] [place] [address] Performed By: #### 2 4323-8 ####[facility] LABCLIA [id number] [place] [address] [place] Urea nitrogen [Mass/Vol] 22 mg/dL High 7-21 [facility] Comment on above: Order Comment: Speci men Type: BLOOD SPECIMENOrdering Facility: [facility] Address: [address] Performed By: #### 2 4323-8 ####[facility] LABCLIA [id number] [place] [address] [place] Ferritin SerPl-mCncon 2022 Ferritin [Mass/Vol] 107.0 ng/mL Normal 14.7-205.1 [facility] Comment on above: Order Comment: Speci men Type: BLOOD SPECIMENOrdering Facility: [facility] Address: [address] Performed By: #### 5 0190-8, 6-4 ####[facility] LABCLIA [id number] [address] [place] [address] [place] Iron and Iron binding capaci ty panelon 12-30-2022 Iron [Mass/Vol] 79 ug/dL Normal 41-186 [facility] Comment on above: Order Comment: Speci men Type: BLOOD SPECIMENOrdering Facility: [facility] Address: [address] [place] [address] Performed By: #### 5 0190-8, 2275- ####[facility] LABIA [id number] [address] Iron binding capacity [Mass/Vol] 347 ug/dL Normal 232-386 [facility] Comment on above: Order Comment: Speci men Type: BLOOD SPECIMENOrdering Facility: [facility] Address: [address] [place] [address] Performed By: #### 5 0190-8, 2275- ####[facility] [id number] [address] Iron/TIBC [Molar ratio] 22.8 % Normal 15.0-57.0 [facility] Comment on above: Order Comment: Speci men Type: BLOOD SPECIMENOrdering Facility: [facility] Address: [address] [place] [address] Performed By: #### 5 0190-8, 2275-08 ####[facility] LABIA [id number] [place] [address] [place] Bacteria Ur Culton 3 Bacteria identified Cx Nom (U) ORGANISM ID: 1 10,000 -<50,000 CFU/ml Mixed microbiota Insignificant colony count. No further workup. Normal [facility] Comment on above: Performed By: #### 6 30-4 ####[facility] LABIA [id number] [place] [address] [place] Basic metabolic 2000 panelon 12-23-2022 Anion gap [Moles/Vol] 10 mmol/L Normal 9-[address] [facility] Comment on above: Order Comment: Speci men Type: BLOOD SPECIMENOrdering Facility: [facility] Address: [address] [place] [address] Performed By: #### 2 4321-2 ####[facility] LABCLIA [id number] [place] [address] [place] Calcium [Mass/Vol] 9.5 mg/dL Normal 8.5-10.2 [facility] Comment on above: Order Comment: Speci men Type: BLOOD SPECIMENOrdering Facility: [facility] Address: [address] [place] [address] Performed By: #### 2 4321-2 ####[facility] LABCLIA [id number] [place] [address] [place] Chloride [Moles/Vol] 99 mmol/L Normal 97-105 [facility] Comment on above: Order Comment: Speci men Type: BLOOD SPECIMENOrdering Facility: [facility] Address: [address] [place], [place] [address] Performed By: #### 2 4321-2 ####[facility] LABCLIA [id number] [place] [address] [place] CO2 [Moles/Vol] 22 mmol/L Normal 22-30 [facility] Comment on above: Order Comment: Speci men Type: BLOOD SPECIMENOrdering Facility: [facility] Address: [address] [place], [place] [address] Performed By: #### 2 4321-2 ####[facility] LABCLIA [id number] [place] [address] [place] Creatinine [Mass/Vol] 1.21 mg/dL High 0.58-0.[address] [facility] Comment on above: Order Comment: Speci men Type: BLOOD SPECIMENOrdering Facility: [facility] Address: [address] [address] Performed By: #### 2 4321-2 ####[facility] LABIA [id number] [place] [address] [place] ESTIMATED GLOMERULAR FILTRATION RATE 47 mL/min/1.73m??? Low >=60 [facility] Comment on above: Order Comment: Natichace marshall Type: BLOOD SPECIMENOrdering Facility: [facility] Address: [address] [address] Result Comment: Karen mated Glomerular Filtration Rate (eGFR) is calculated using the 2020 CKD-EPI creatinine equation. This equation utilizes serum creatinine, sex, and age as parameters. The creatinine assay has traceable calibration to isotope dilution-mass spectrometry. Refer to KDIGO guidelines for clinical interpretation. In patients with unstable renal function, e.g. those with acute kidney injury, the eGFR may not accurately reflect actual GFR. Performed By: #### 2 4321-2 ####[facility] LABIA [id number] [place] [address] [place] Glucose [Mass/Vol] 87 mg/dL Normal 74-99 [facility] Comment on above: Order Comment: Tamiko marshall Type: BLOOD SPECIMENOrdering Facility: [facility] Address: [address] [place] [address] Result Comment: The [place] Diabetes [employer] (ADA) provides guidance for cutoff values for fasting glucose and random glucose. The ADA defines fasting as no caloric intake for at least 8 hours. Fasting plasma glucose results between 100 to 125 mg/dL indicate increased risk for diabetes (prediabetes). Fasting plasma glucose results greater than or equal to 126 mg/dL meet the criteria for diagnosis of diabetes. In the absence of unequivocal hyperglycemia, results should be confirmed by repeat testing. In a patient with classic symptoms of hyperglycemia or hyperglycemic crisis, random plasma glucose results greater than or equal to 200 mg/dL meet the criteria for diagnosis of diabetes. Reference: Standards of Medical Care in Diabetes 2016, [place] [employer]. Diabetes Care. 2016.39(Suppl 1). Performed By: #### 2 4321-2 ####[facility] LABCLIA [id number] [place] [address] [place] Potassium [Moles/Vol] 5.1 mmol/L Normal 3.7-5.[address] [facility] Comment on above: Order Comment: Speci men Type: BLOOD SPECIMENOrdering Facility: [facility] Address: [address] [place] [address] Performed By: #### 2 4321-2 ####[facility] LABCLIA [id number] [place] [address] [place] Sodium [Moles/Vol] 131 mmol/L Low 136-144 [facility] Comment on above: Order Comment: Speci men Type: BLOOD SPECIMENOrdering Facility: [facility] Address: [address] [place] [address] Performed By: #### 2 4321-2 ####[facility] LABIA [id number] [place] [address] [place] Urea nitrogen [Mass/Vol] 19 mg/dL Normal 7-21 [facility] Comment on above: Order Comment: Speci men Type: BLOOD SPECIMENOrdering Facility: [facility] Address: [address] [place] [address] Performed By: #### 2 4321-2 ####[facility] LABIA [id number] [place] [address] [place] CBC W Auto Differential pane l (Bld)on 12-23-2022 Basophils (Bld) [#/Vol] 10*3/uL Normal <0.11 [facility] Comment on above: Order Comment: Speci men Type: BLOOD SPECIMENOrdering Facility: [facility] Address: [address] [place] [address] Performed By: #### 5 7021-8 ####[facility] LABIA [id number] [place] [address] [place] Basophils/100 WBC (Bld) 0.3 % Normal [facility] Comment on above: Order Comment: Speci men Type: BLOOD SPECIMENOrdering Facility: [facility] Address: [address] Performed By: #### 5 7021-8 ####[facility] LABCLIA [id number] [place] [address] [place] Differential cell count method Nom (Bld) Auto Normal [facility] Comment on above: Order Comment: Speci men Type: BLOOD SPECIMENOrdering Facility: [facility] Address: [address] [place], [place] [address] Performed By: #### 5 7021-8 ####[facility] LABCLIA [id number] [place] [address] [place] Eosinophils (Bld) [#/Vol] 10*3/uL Normal <0.46 [facility] Comment on above: Order Comment: Speci men Type: BLOOD SPECIMENOrdering Facility: [facility] Address: [address] [place], [place] [address] Performed By: #### 5 7021-8 ####[facility] LABCLIA [id number] [address] [place] [address] [place] OF [facility] Eosinophils/100 WBC (Bld) 0.0 % Normal [facility] Comment on above: Order Comment: Speci men Type: BLOOD SPECIMENOrdering Facility: [facility] Address: [address] [place], [place] [address] Performed By: #### 5 7021-8 ####[facility] LABCLIA [id number] [place] [address] [place] Erythrocyte distribution width (RBC) [Ratio] 13.7 % Normal 11.5-15.0 [facility] Comment on above: Order Comment: Speci men Type: BLOOD SPECIMENOrdering Facility: [facility] Address: [address] [place], [place] [address] Performed By: #### 5 7021-8 ####[facility] LABIA [id number] [place] [address] [place] Hematocrit (Bld) [Volume fraction] 30.6 % Low 36.0-46.0 [facility] Comment on above: Order Comment: Speci men Type: BLOOD SPECIMENOrdering Facility: [facility] Address: [address] [place] [address] Performed By: #### 5 7021-8 ####[facility] LABIA [id number] [place] [address] [place] Hemoglobin (Bld) [Mass/Vol] 10.0 g/dL Low 11.5-15.5 [facility] Comment on above: Order Comment: Speci men Type: BLOOD SPECIMENOrdering Facility: [facility] [facility] Address: [address] [place], [place] [address] Performed By: #### 5 7021-8 ####[facility] LABIA [id number] [place] [address] [place] Immature granulocytes (Bld) [#/Vol] 0.04 10*3/uL Normal <0.10 [facility] Comment on above: Order Comment: Speci men Type: BLOOD SPECIMENOrdering Facility: [facility] Address: [address] [place] [address] Performed By: #### 5 7021-8 ####[facility] LABIA [id number] [place] [address] [place] Immature granulocytes/100 WBC (Bld) 0.7 % Normal [facility] Comment on above: Order Comment: Speci men Type: BLOOD SPECIMENOrdering Facility: [facility] Address: [address] [place] [address] Performed By: #### 5 7021-8 ####[facility] LABIA [id number] [place] [address] [place] Lymphocytes (Bld) [#/Vol] 1.32 10*3/uL Normal 1.00-4.00 [facility] Comment on above: Order Comment: Speci men Type: BLOOD SPECIMENOrdering Facility: [facility] Address: [address] [place] [address] Performed By: #### 5 7021-8 ####[facility] LABCLIA [id number] [address] [place] [address] [place] Lymphocytes/100 WBC (Bld) 22.0 % Normal [facility] Comment on above: Order Comment: Speci men Type: BLOOD SPECIMENOrdering Facility: [facility] Address: [address] [place] [address] Performed By: #### 5 7021-8 ####[facility] LABIA [id number] [place] [address] [place] MCH (RBC) [Entitic mass] 33.7 pg Normal 26.0-34.0 [facility] Comment on above: Order Comment: Speci men Type: BLOOD SPECIMENOrdering Facility: [facility] Address: [address] [place], [place] [address] Performed By: #### 5 7021-8 ####[facility] LABIA [id number] [address] [place] [address] [place] MCHC (RBC) [Mass/Vol] 32.7 g/dL Normal 30.5-36.[address] [facility] Comment on above: Order Comment: Speci men Type: BLOOD SPECIMENOrdering Facility: [facility] Address: [address] [place], [place] [address] Performed By: #### 5 7021-8 ####[facility] LABIA [id number] [address] [place] [address] [place] MCV (RBC) [Entitic vol] 103.0 fL High 80.0-100.0 [facility] Comment on above: Order Comment: Speci men Type: BLOOD SPECIMENOrdering Facility: [facility] Address: [address] Performed By: #### 5 7021-8 ####[facility] LABCLIA [id number] [place] [address] [place] Monocytes (Bld) [#/Vol] 0.45 10*3/uL Normal <0.87 [facility] Comment on above: Order Comment: Speci men Type: BLOOD SPECIMENOrdering Facility: [facility] Address: [address] Performed By: #### 5 7021-8 ####[facility] LABCLIA [id number] [address] [place] Monocytes/100 WBC (Bld) 7.5 % Normal [facility] Comment on above: Order Comment: Speci men Type: BLOOD SPECIMENOrdering Facility: [facility] Address: [address] [place], [place] [address] Performed By: #### 5 7021-8 ####[facility] LABCLIA [id number] [place] [address] [place] Neutrophils (Bld) [#/Vol] 4.18 10*3/uL Normal 1.45-7.50 [facility] Comment on above: Order Comment: Speci men Type: BLOOD SPECIMENOrdering Facility: [facility] Address: [address] [place], [place] [address] Performed By: #### 5 7021-8 ####[facility] LABCLIA [id number] [address] [place] [address] [place] Neutrophils/100 WBC (Bld) 69.5 % Normal [facility] Comment on above: Order Comment: Speci men Type: BLOOD SPECIMENOrdering Facility: [facility] Address: [address] [place], [place] [address] Performed By: #### 5 7021-8 ####[facility] LABCLIA [id number] [place] [address] [place] Nucleated RBC (Bld) [#/Vol] 10*3/uL Normal <0.01 [facility] Comment on above: Order Comment: Speci men Type: BLOOD SPECIMENOrdering Facility: [facility] Address: [address] [place] [address] Performed By: #### 5 7021-8 ####[facility] LABIA [id number] [place] [address] [place] Nucleated RBC/100 WBC (Bld) [Ratio] 0.0 /100 WBC Normal [facility] Comment on above: Order Comment: Speci men Type: BLOOD SPECIMENOrdering Facility: [facility] Address: [address] [place] [address] Performed By: #### 5 7021-8 ####[facility] LABIA [id number] [place] [address] [place] Platelet mean volume (Bld) [Entitic vol] 10.2 fL Normal 9.0-12.7 [facility] Comment on above: Order Comment: Speci men Type: BLOOD SPECIMENOrdering Facility: [facility] Address: [address] [place], [place] [address] Performed By: #### 5 7021-8 ####[facility] LABIA [id number] [place] [address] [place] Platelets (Bld) [#/Vol] 205 10*3/uL Normal 150-400 [facility] Comment on above: Order Comment: Speci men Type: BLOOD SPECIMENOrdering Facility: [facility] Address: [address] [place], [place] [address] Performed By: #### 5 7021-8 ####[facility] LABCLIA [id number] [place] [address] [place] RBC (Bld) [#/Vol] 2.97 10*6/uL Low 3.90-5.20 [facility] Comment on above: Order Comment: Speci men Type: BLOOD SPECIMENOrdering Facility: [facility] Address: [address] [place] [address] Performed By: #### 5 7021-8 ####[facility] LABCLIA [id number] [place] [address] [place] WBC (Bld) [#/Vol] 6.01 10*3/uL Normal 3.70-11.00 [facility] Comment on above: Order Comment: Speci men Type: BLOOD SPECIMENOrdering Facility: [facility] Address: [address] [place] [address] Performed By: #### 5 7021-8 ####[facility] LABCLIA [id number] [address] [place] [address] [place] CNCOon 12-23-2022 CNCO Letter Text Normal [facility] CNOVon 12-23-2022 CNOV Office Visit (LOORRM ) -- KIKI MOORE ([id number]) 1945 F Date Time Provider Department 12/23/22 9:00 AM JUDIT JARRELL During your visit today, we recorded the following information about you: Weight Height 80.3 kg 1.549 m Judit Jarrell PA-C 12/23/2022 5:23 PM Signed CONSULT ORTHOPAEDIC: KNEE PRIMARY CARE PHYSICIAN: Cinda Coronel REFERRING PROVIDER: SELF ASSESSMENT AND PLAN Impression: Left Knee Severe Degenerative Osteoarthritis, Primary Diagnoses: (M17.12) Primary osteoarthritis of left knee (primary encounter diagnosis) Based upon the evaluation today and after discussions with Kiki Johnson has significant, worsening pain at the knee. This pain is increased with activity and weight bearing, and interferes with activities of daily living. These symptoms have continued despite a number of non-surgical measures, including a trial of oral pain medication and attempted physical therapy/ structured exercise program and/or use of an assistive device/ bracing (for at least 12 weeks unless the patient was unable to tolerate these measures as discussed above). At this point, the patient will not benefit from further PT due to the severity of their condition. The patient's physical examination is consistent with limitations in range of motion, pain with passive range of motion, crepitus, and effusion/ synovitis. These examination findings are corroborated by imaging findings of joint space narrowing, periarticular osteophyte formation, and subchondral sclerosis. The patient has been treated by the practice and all reasonable treatments have failed to control the disease, which causes significant pain and limits activities of daily living. The patient has failed conservative treatment and joint replacement surgery was discussed and agreed upon by both provider and patient. We will proceed with surgical management to improve function and relieve pain refractory to non-surgical measures. Left Primary Total Knee Arthroplasty as evidenced by six months of unsuccessful non-operative treatment as outlined in the HPI below and progressive symptoms. Progressive Symptoms Include: Pain impacting sleep or causing fatigue Pain impacting work Pain worsened by weight bearing Pain effecting living situation Pain limiting ability to stay fit and healthy Unable to ambulate 2 blocks without significant pain and dysfunction . Surgery Details Date and Location: At [facility] on 01/17/23. Implants: [place] Robotic: Yes Predicted LOS: 2 days (Inpatient candidate) Informed consent obtained in the office today. The risks and benefits of surgery were discussed at length including but not limited to the risks of infection, bleeding, nerve or blood vessel injury, deep venous thrombosis, pulmonary embolism, arthrofibrosis, reflex sympathetic dystrophy, , paralysis, knee or patellar dislocation, extensor mechanism injury, bone fracture, component loosening or failure requiring re-operation or amputation. Informed consent was obtained and the patient was scheduled for surgery. We also discussed fixation strategies including cement and cementless fixation and advantages and disadvantages of each. We discussed the details of the surgery as well as rehabilitation. All questions were answered, and the patient wishes to proceed with surgery.. The patient has been ordered: No orders found for this visit on 12/23/22. No orders placed today. CONSULTS: Patient does not require consults for optimization at this time. Total Joint Arthroplasty: Risk Calculator Kiki Moore has a 10.26% chance of NOT returning home at discharge for a Primary total Knee replacement. Kiki's estimated Length of Stay is 2 days (Inpatient candidate). Kiki's 30 day chance of readmission is 6.73%. Readmission Probability 6.73 % (within 30 days following surgery) Estimated LOS 2 days Discharge Disposition Probability D/C to Home 89.74 % D/C to SNF 10.26 % These calculations are based on the following factors: - 77 years of age - sex is not male - BMI of 33.44 kg/m2 - NarxCare score of 40 - 0 hospitalizations in the last 12 months - no history of heart disease - no history of diabetes - no history of COPD - history of anemia - preoperative ambulation: independent community distances - 5 step(s) to enter home - bed location is on the first floor - bath location is on the first floor - caregiver is consistent - home is not more than 150 miles away - PROMIS-10 Mental Health T score not available - Marital status: Risk Factors for Total Knee Arthroplasty (TKA) Major Risk Factors Obesity Unknown Risk High: BMI > 40 Moderate: BMI 30-40 Normal: BMI < 30 Diabetes normal High: A1C > 8 Moderate: A1C 7-8 Normal: A1C < 7 Smoking normal High: Current smoker Normal: No (more content not included)... Normal [facility] HISTORY PHYSICALon HISTORY PHYSICAL HNO ID: [id number] Author: Rico Floiran APRN.PHARMACY INFORMATICS SPECIALIST Service: ? Author Type: Nurse Practitioner Type: HANDP Filed: 01/11/2023 7:41 AM Note Text: HISTORY AND PHYSICAL EXAMINATION SERVICE DATE: 12/23/2022 SERVICE TIME: 9:40 AM PRIMARY CARE PHYSICIAN: Cinda Coronel REASON FOR VISIT: Kiki Moore is a 77 year old female who is scheduled for ARTHROPLASTY REPLACE JOINT TOTAL KNEE AIDA EXTENDED STAY left at the request of Dr. Shan Box for consultation. My final recommendation will be communicated back to the requesting physician by way of shared medical record or letter. The patient has the following: ACTIVE PROBLEM LIST Enthesopathy of Hip Region Acquired Spondylolisthesis Spinal Stenosis, Lumbar Region, Without Neurogenic Claudication Knee Joint Replacement By Other Means Follow-Up Examination, Following Unspecified Surgery Disorders of Bursae and Tendons in Shoulder Region, Unspecified Radiculitis, Lumbosacral Bursitis Mechanical Failure of Prosthetic Joint ([facility]) S/P Revision of Total Hip Oa (Osteoarthritis) Glaucoma Obesity, Class II, BMI 38.47 Rheumatoid arthritis Postoperative Anemia Due to Acute Blood Loss Thoracic Or Lumbosacral Neuritis Or Radiculitis, Unspecified Lumbosacral Spondylosis Without Myelopathy History of Spinal Surgery Obesity Snoring Back Pain Ra (Rheumatoid Arthritis) ([facility]) Arthritis of Left Hip Spondylolisthesis of Lumbar Region 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 Subjective CHIEF COMPLAINT: Left knee pain HPI: 77 year old female with left knee pain that has had multiple knee surgeries in the past. Patient has tried NSAIDS, steroid injections, Patient is currently using a walker for assistance. Patient states pain today is 8/10 PAST MEDICAL HISTORY Diagnosis Date Back pain Bursitis DVT of popliteal vein ([facility]) Glaucoma Hypertension OA (osteoarthritis) Obesity RA (rheumatoid arthritis) ([facility]) Rotator cuff syndrome Snoring Spinal stenosis, lumbar Stroke ([facility]) PAST SURGICAL HISTORY Procedure Laterality Date ARTHRP ACETBLR/PROX FEM PROSTC AGRFT/ALGRFT right Hip replacement, total 2001, revision 06/2014 ARTHRP KNE CONDYLEANDPLATU MEDIALANDLAT COMPARTMENTS right Knee replacement, total 1998, 2007 SECTION HX x 2 births FOOT SURGERY HX tumors removed left and right feet GALL BLADDER NO STIMULATION LAMINECTOMY W/O FFD 1/2 VERT SEG LUMBAR 05/22/1992 Dr Tejada PAST SURGICAL HISTORY OF Right 06/22/2014 revision right toal hip replacement PFO CLOSURE 2016 ROTATOR CUFF REPAIR TOTAL HIP REPLACEMENT Left FAMILY HISTORY Problem Relation Age of Onset other (heart attack [Other]) Mother Arthritis Father Arthritis Maternal Grandfather Arthritis Maternal Grandmother Cancer Brother Cancer Father SOCIAL HISTORY: Social History Tobacco Use Smoking status: Never Smokeless tobacco: Never Substance Use Topics Alcohol use: No Drug use: No Prior to Admission medications as of 12/23/22 1020 Medication Sig Last Dose Taking hydrOXYchloroQUINE (PLAQUENIL) 200 mg tablet Take 200 mg by mouth twice daily with meals. Yes furosemide (LASIX) 20 mg tablet Take 20 mg by mouth every morning. Yes potassium chloride (K-TAB) 10 mEq tablet TAKE 1 TABLET (10 MEQ) BY MOUTH IN THE MORNING Yes clindamycin (CLEOCIN) 300 mg capsule Take 1 tablet by mouth 1 hour prior to procedure and 1 tablet by mouth 6 hours after procedure Yes LISINOPRIL ORAL Take by mouth. Yes aspirin, enteric coated (ASPIRIN, ENTERIC COATED) 325 mg EC tablet Take 1 tablet by mouth twice daily. Yes latanoprost (XALATAN) 0.005 % ophthalmic solution 1 Drop daily at bedtime. Yes METHOTREXATE SODIUM (METHOTREXATE, ANTI-RHEUMATIC, ORAL) Take 2.5 mg by mouth. 8 tabs on Mondays Yes FOLIC ACID 1 MG TAB Take four tablets po every Monday Yes ALPHAGAN P 0.1 % EYE DROPS one drop each eye daily Yes No medication comments found. ALLERGIES Allergen Reactions Celebrex [Celecoxib] Hives, Swelling Vioxx [Rofecoxib] Cough states she had extreme dry mouth Gabapentin Other: See Comments Syncope with fall REVIEW OF SYSTEMS: PAIN ASSESSMENT: Pain Pain Level: 5 Pain Location: Knee-Left Description: Aching Duration Amount of Time: 5 Duration Units: Years Frequency: Continuous Intervention/Comfort measure: Medication, Cold General: No weight loss, malaise or fevers. Neuro: Postive for Stroke-No residual deficit in 2016 No history of TIA's,[place] [place] [employer]AT tumor, impaired sensorium, hemiplegia, paraplegia or quadraplegia. Respiratory: No history of current cough or dyspnea, or pneumonia in the past 6 weeks. No history of respiratory/pulmonary symptoms or problems. Cardiovascular: Positive for HTN, HLD + history of PFO with closure in 2017 History of Right knee DVT was on Eliquis for 6 months History of Heart failure on Lasix Denies rest lance (more content not included)... Normal [facility] HbA1c (Bld)on 12-23-2022 Average glucose Estimated from glycated hemoglobin (Bld) [Mass/Vol] 114 mg/dL Normal [facility] Comment on above: Order Comment: Speci men Type: BLOOD SPECIMENOrdering Facility: [facility] Address: [address] [place] [address] Result Comment: eAG: (Estimated average glucose) is a calculated value from HgbA1c and is union representative of the average blood glucose level in the last 2-3 month period. Performed By: #### 5 5454-3 ####[facility] LABCLIA [id number] [address] HbA1c (Bld) [Mass fraction] 5.6 % Normal 4.3-5.6 [facility] Comment on above: Order Comment: Speci men Type: BLOOD SPECIMENOrdering Facility: [facility] Address: [address] [place] [address] Result Comment: [place] Diabetes Association guidelines indicate that patients with HgbA1c in the range 5.7-6.4% are at increased risk for development of diabetes, and intervention by lifestyle modification may be beneficial. HgbA1c greater or equal to 6.5% is considered diagnostic of diabetes. Performed By: #### 5 5454-3 ####[facility] LABCLIA [id number] [address] TYPE AND SCREEN,30 DAYon ABO A Normal [facility] Comment on above: Order Comment: Speci men Type: BLOOD SPECIMENOrdering Facility: [facility] Address: [address] [place] [address] Performed By: #### T SCR30 ####[facility] BLOOD BANKIA [id number] [address] HISTORICAL AB SCR STATUS Positive Abnormal [facility] Comment on above: Order Comment: Speci men Type: BLOOD SPECIMENOrdering Facility: [facility] Address: [address] [place] [address] Performed By: #### T SCR30 ####[facility] BLOOD BANKCLIA [id number] [address] [place] [place] Rh Nom (Bld) Positive Normal [facility] Comment on above: Order Comment: Speci men Type: BLOOD SPECIMENOrdering Facility: [facility] Address: [address] [place] [address] Performed By: #### T SCR30 ####[facility] BLOOD BANKIA [id number] [address] [place] Urinalysis complete panel (U )on 12-23-2022 Bilirubin Ql (U) Negative Normal Negative [facility] Comment on above: Order Comment: Speci men Type: URINE SPECIMENOrdering Facility: [facility] Address: [address] [place] [address] Performed By: #### 2 4356-8 ####[facility] LABCLIA [id number] [place] [address] [place] Clarity (Unsp spec) Clear Normal Clear [facility] Comment on above: Order Comment: Speci men Type: URINE SPECIMENOrdering Facility: [facility] Address: [address] [place] [address] Performed By: #### 2 4356-8 ####[facility] LABCLIA [id number] [place] [address] [place] Color (U) Light Yellow Normal Yellow [facility] Comment on above: Order Comment: Speci men Type: URINE SPECIMENOrdering Facility: [facility] Address: [address] Performed By: #### 2 4356-8 ####[facility] LABCLIA [id number] [place] [address] [place] Glucose Test strip (U) [Mass/Vol] Negative Normal Trace, Negative [facility] Comment on above: Order Comment: Speci men Type: URINE SPECIMENOrdering Facility: [facility] Address: [address] Performed By: #### 2 4356-8 ####[facility] LABCLIA [id number] [place] [address] [place] Hemoglobin Ql (U) Negative Normal Negative, Trace [facility] Comment on above: Order Comment: Speci men Type: URINE SPECIMENOrdering Facility: [facility] Address: [address] Performed By: #### 2 4356-8 ####[facility] LABCLIA [id number] [place] [address] [place] Hyaline casts (Urine sed) [#/Area] 1-3 /LPF Abnormal 0 /LPF [facility] Comment on above: Order Comment: Speci men Type: URINE SPECIMENOrdering Facility: [facility] Address: [address] [place] [address] Performed By: #### 2 4356-8 ####[facility] LABCLIA [id number] [place] [address] [place] Ketones Ql (U) Negative Normal Trace, Negative [facility] Comment on above: Order Comment: Speci men Type: URINE SPECIMENOrdering Facility: [facility] Address: [address] [place] [address] Performed By: #### 2 4356-8 ####[facility] LABIA [id number] [place] [address] [place] Leukocyte esterase Test strip Ql (U) 25 Jailyn/uL Normal Negative, 25 Jailyn/uL [facility] Comment on above: Order Comment: Speci men Type: URINE SPECIMENOrdering Facility: [facility] Address: [address] [place] [address] Performed By: #### 2 4356-8 ####[facility] LABCLIA [id number] [place] [address] [place] Nitrite Ql (U) Negative Normal Negative [facility] Comment on above: Order Comment: Speci men Type: URINE SPECIMENOrdering Facility: [facility] Address: [address] [place] [address] Performed By: #### 2 4356-8 ####[facility] LABIA [id number] [place] [address] [place] pH (U) 6.0 [pH] Normal 5.0-8.0 [facility] Comment on above: Order Comment: Speci men Type: URINE SPECIMENOrdering Facility: [facility] Address: [address] [place] [address] Performed By: #### 2 4356-8 ####[facility] LABIA [id number] [place] [address] [place] [facility] Protein (U) [Mass/Vol] Negative Normal Trace , Negative [facility] Comment on above: Order Comment: Speci men Type: URINE SPECIMENOrdering Facility: [facility] Address: [address] [place] [address] Performed By: #### 2 4356-8 ####[facility] LABIA [id number] [place] [address] [place] RBC LM.HPF (Urine sed) [#/Area] 0-3 /HPF Normal 0-3 /HPF [facility] Comment on above: Order Comment: Speci men Type: URINE SPECIMENOrdering Facility: [facility] Address: [address] [place], [place] [address] Performed By: #### 2 4356-8 ####[facility] LABIA [id number] [place] [address] [place] Specific gravity (U) [Rel density] 1.010 Normal 1.005-1.03 0 [facility] Comment on above: Order Comment: Speci men Type: URINE SPECIMENOrdering Facility: [facility] Address: [address] [place], [place] [address] Performed By: #### 2 4356-8 ####[facility] LABIA [id number] [place] [address] [place] Urobilinogen Ql (U) Negative Normal Negative [facility] Comment on above: Order Comment: Speci men Type: URINE SPECIMENOrdering Facility: [facility] Address: [address] [place] [address] Performed By: #### 2 4356-8 ####[facility] LABIA [id number] [place] [address] [place] WBC LM.HPF (Urine sed) [#/Area] 0-5 /HPF Normal 0-5 /HPF [facility] Comment on above: Order Comment: Speci men Type: URINE SPECIMENOrdering Facility: [facility] Address: [address] [address] [id number] Performed By: #### 2 4356-8 ####[facility] LABCLIA [id number] [place] [address] [place] PTH [place] 11-23-2022 Parathyrin.intact [Mass/Vol] 191 pg/mL High 15- [facility] Comment on above: Result Comment: Perf ormed at: [facility] [address] [id number] PhD Be Serra Performed By: #### 2 296347, 8531626, 56283580, 93432708, 4005655 #### [facility] [address] [place] [address] Auto Diffon 11-21-2022 Basophils/100 WBC (Bld) 0.5 % Normal 0.0-2.0 F [facility] Comment on above: Order Comment: Order Added by Discern Expert. Performed By: #### 2 111354, 5560581, 39183312, 82351929, 3133706 #### [facility] [address] [place] [address] Basophils/Leukocytes Auto (Bld) [Pure # fraction] 0.0 E9/L Normal 0.0-0.2 [facility] Comment on above: Order Comment: Order Added by Discern Expert. Performed By: #### 2 468568, 9865520, 54220397, 62521856, 4971834 #### [facility] [address] [place] [address] Eosinophils/100 WBC (Bld) 0.2 % Normal 0.0-8.0 [facility] Comment on above: Order Comment: Order Added by Discern Expert. Performed By: #### 2 166413, 0484980, 44175332, 05045148, 5260055 #### [facility] [address] [place] [address] Eosinophils/Leukocytes Auto (Bld) [Pure # fraction] 0.0 E9/L Normal 0.0-0.5 [facility] Comment on above: Order Comment: Order Added by Discern Expert. Performed By: #### 2 657717, 0179709, 79241517, 91368543, 2538191 #### [facility] [address] [place] [address] Lymphocytes/100 WBC (Bld) 17.2 % Normal 14.0-50.0 [facility] Comment on above: Order Comment: Order Added by Discern Expert. Performed By: #### 2 058302, 7299615, 29831811, 39248058, 6586611 #### [facility] [address] [place] [address] Lymphocytes/Leukocytes Auto (Bld) [Pure # fraction] 0.9 E9/L Low 1.0-4.0 [facility] Comment on above: Order Comment: Order Added by Discern Expert. Performed By: #### 2 663390, 5997033, 42303602, 03120699, 0277168 #### [facility] [address] [place] [address] Monocytes/100 WBC (Bld) 7.1 % Normal 4.0-14.0 [facility] Comment on above: Order Comment: Order Added by Discern Expert. Performed By: #### 2 423056, 2133120, 91064007, 29195565, 5443746 #### [facility] [address] [place] [address] Monocytes/Leukocytes Auto (Bld) [Pure # fraction] 0.4 E9/L Normal 0.2-1.0 [facility] Comment on above: Order Comment: Order Added by Discern Expert. Performed By: #### 2 045517, 5224522, 92045307, 99045742, 7168824 #### [facility] [address] [place] [address] Neutrophils/100 WBC (Bld) 75.0 % Normal 36.0-75.0 [facility] Comment on above: Order Comment: Order Added by Discern Expert. Performed By: #### 2 984170, 5367935, 87276587, 78331353, 4447911 #### [facility] [address] [place] [address] Neutrophils/Leukocytes Auto (Bld) [Pure # fraction] 3.9 E9/L Normal 2.0-7.5 [facility] Comment on above: Order Comment: Order Added by Discern Expert. Performed By: #### 2 733049, 6249536, 89428698, 91314825, 9676968 #### [facility] [address] [place] [address] CBC w/ Auto Diffon Erythrocyte distribution width (RBC) [Ratio] 14.4 % High 10.9-14.2 [facility] Comment on above: Performed By: #### 2 738245, 1412584, 00331966, 57058814, 7778309 #### [facility] [address] [place] [address] Hematocrit (Bld) [Volume fraction] 29.8 % Low 34.0-46.0 [facility] Comment on above: Performed By: #### 2 421743, 5576911, 22204944, 63233431, 1800602 #### [facility] [address] [place] [address] Hemoglobin (Bld) [Mass/Vol] 9.9 g/dL Low 12.0-16.0 [facility] Comment on above: Performed By: #### 2 820714, 6732399, 75622959, 89815602, 7931890 #### [facility] [address] [place] [address] MCH (RBC) [Entitic mass] 33.2 pg Normal 27.0-34.0 [facility] Comment on above: Performed By: #### 2 636097, 9807474, 88848790, 04513747, 7762029 #### [facility] [address] [place] [address] MCHC (RBC) [Mass/Vol] 33.2 g/dL Normal 31.4-36.0 [facility] Comment on above: Performed By: #### 2 925025, 3423400, 64780928, 61035441, 0723966 #### [facility] [address] [place] [address] MCV (RBC) [Entitic vol] 100.1 fL High 80.0-100.0 F [facility] Comment on above: Performed By: #### 2 641700, 8894556, 85518102, 04154046, 0724275 #### [facility] [address] [place] [address] Platelet mean volume (Bld) [Entitic vol] 7.6 fL Normal 6.4-10.8 [facility] Comment on above: Performed By: #### 2 806002, 0656561, 51159045, 17156880, 7876242 #### [facility] [address] [place] [address] Platelets (Bld) [#/Vol] 227.0 E9/L Normal 150. 0-500. 0 [facility] Comment on above: Performed By: #### 2 554266, 2002652, 16534143, 48748100, 0939613 #### [facility] [address] [place] [address] RBC (Bld) [#/Vol] 3.0 E12/L Low 4.3-5.9 [facility] Comment on above: Performed By: #### 2 243620, 2440663, 44269381, 34397065, 8341514 #### [facility] [address] [place] [address] WBC corrected for nucl RBC Auto (Bld) [#/Vol] 5.2 E9/L Normal 4.0-11.0 [facility] Comment on above: Performed By: #### 2 226400, 1249113, 81546723, 45516234, 2833660 #### [facility] [address] [place] [address] CHEMISTRYOrdered By: SYSTEM SYSTEM on 11-21-2022 25-hydroxyvitamin D3 [Mass/Vol] 25.2 ng/mL Low 30.0 - 100.0 ng/mL [facility] Albumin [Mass/Vol] 4.0 g/dL Normal 3.3 - 5.0 gm/dL [facility] Anion gap [Moles/Vol] 13 mmol/L Normal 6 - 16 mEq/L [facility] Calcium [Mass/Vol] 9.3 mg/dL Normal 8.9 - 11. 1 mg/dL [facility] Chloride [Moles/Vol] 100 mmol/L Low 101 - 1 11 mmol/L [facility] CO2 [Moles/Vol] 24 mmol/L Normal 21 - 31 mmol/L [facility] Creatinine [Mass/Vol] 1.2 mg/dL Normal 0.5 - 1.3 mg/dL [facility] GFR/1.73 sq M.predicted among non-blacks MDRD (S/P/Bld) [Vol rate/Area] 47 mL/min/1.73 m2 Low >=59mL/min /1.73 m2 [facility] Chem S Glucose [Mass/Vol] 110 mg/dL Normal 55 - 199 mg/dL [facility] Phosphate [Mass/Vol] 3.7 mg/dL Normal 1.9 - 4 .6 mg/dL [facility] Potassium [Moles/Vol] 5.3 mmol/L Normal 3.5 - 5.3 mmol/L [facility] Sodium [Moles/Vol] 132 mmol/L Low 135 - 145 mmol/L [facility] Urea nitrogen [Mass/Vol] 24 mg/dL High 5 - 21 mg/dL [facility] Urea nitrogen/Creatinine [Mass ratio] 20 mg/mg Normal 10 - 20 [facility] Consent for Treatmenton Consent for Treatment [id number]#[id number]:127 Normal [facility] Hep Func Panelon 11-21-2022 Albumin [Mass/Vol] 4.0 g/dL Normal 3.3-5.0 [facility] Comment on above: Performed By: #### 2 773229, 6033443, 52161609, 28794892, 9567096 #### [facility] [address] [place] [address] Albumin/Globulin (S) [Mass conc ratio] 1.6 Normal 1.1-2.2 [facility] Comment on above: Performed By: #### 2 504601, 8992004, 15464565, 98568556, 1459442 #### [facility] [address] [place] [address] ALP [Catalytic activity/Vol] 106 Int._Unit/L High 21-98 [facility] Comment on above: Performed By: #### 2 822071, 8384787, 50205645, 20665317, 8504550 #### [facility] [address] [place] [address] ALT No additional P-5'-P [Catalytic activity/Vol] 23 Int._Unit/L Normal 6-46 [facility] Comment on above: Performed By: #### 2 217144, 3476874, 24207516, 12372091, 6637831 #### [facility] [address] [place] [address] AST [Catalytic activity/Vol] 33 Int._Unit/L Normal 5-43 [facility] Comment on above: Performed By: #### 2 321525, 2222372, 52103517, 81226507, 1747473 #### [facility] [address] [place] [address] Bilirubin [Mass/Vol] 0.6 mg/dL Normal 0.0-1.1 [facility] Comment on above: Performed By: #### 2 725177, 5763369, 82663163, 20433396, 0427916 #### [facility] [address] [place] [address] Bilirubin.direct [Mass/Vol] 0.2 mg/dL Normal 0.1-0.4 [facility] Comment on above: Performed By: #### 2 911644, 0399142, 84966276, 58561521, 6037182 #### [facility] [address] [place] [address] Bilirubin.indirect [Mass or moles/Vol] 0.4 mg/dL Normal 0.1-0.9 [facility] Comment on above: Performed By: #### 2 769202, 0179994, 23630657, 47708310, 2098621 #### [facility] [address] [place] [address] Globulin (S) [Mass/Vol] 2.5 g/dL Normal 1.4-4.0 [facility] Comment on above: Performed By: #### 2 378386, 7213813, 48291324, 30302928, 3713089 #### [facility] [address] [place] [address] Protein [Mass/Vol] 6.5 g/dL Normal 6.0-7.8 [facility] Comment on above: Performed By: #### 2 836505, 1398653, 93660784, 36140573, 4034545 #### [facility] [address] [place] [address] Physician Orderon 11-21-2022 Physician Order [id number]#[id number]:127 Normal [facility] Renal Panelon 11-21-2022 Albumin [Mass/Vol] 4.0 g/dL Normal 3.3-5.0 [facility] Comment on above: Performed By: #### 1 8316429, 687606639, 43776130 #### [facility] [address] [place] [address] Anion gap [Moles/Vol] 13 mmol/L Normal 6-16 [facility] Comment on above: Performed By: #### 1 1677306, 872143050, 53192692 #### [facility] [address] [place] [address] Calcium [Mass/Vol] 9.3 mg/dL Normal 8.9-11.1 [facility] Comment on above: Performed By: #### 1 1625168, 530463339, 63553948 #### [facility] [address] [place] [address] Chloride [Moles/Vol] 100 mmol/L Low 101-111 [facility] Comment on above: Performed By: #### 1 8455472, 591240360, 50100828 #### [facility] [address] [place] [address] CO2 [Moles/Vol] 24 mmol/L Normal 21-31 [facility] Comment on above: Performed By: #### 1 5109707, 927673100, 07714307 #### [facility] [address] [place] [address] Creatinine [Mass/Vol] 1.2 mg/dL Normal 0.5-1.3 [facility] Comment on above: Performed By: #### 1 1379674, 789193722, 82329849 #### [facility] [address] [place] [address] Glucose [Mass/Vol] 110 mg/dL Normal 55-199 [facility] Comment on above: Result Comment: If t his glucose result represents a fasting glucose, interpretation should refer to the following reference range: 55-99 mg/dL Performed By: #### 1 6911683, 970976005, 00843614 #### [facility] [address] [place] [address] Phosphate [Mass/Vol] 3.7 mg/dL Normal 1.9-4.6 [facility] Comment on above: Performed By: #### 1 6661803, 042566156, 46778539 #### [facility] [address] [place] [address] Potassium [Moles/Vol] 5.3 mmol/L Normal 3.5-5.3 [facility] Comment on above: Performed By: #### 1 7147490, 938191192, 92944136 #### [facility] [address] [place] [address] Sodium [Moles/Vol] 132 mmol/L Low 135-145 [facility] Comment on above: Performed By: #### 1 1458119, 664464323, 08244993 #### [facility] [address] [place] [address] Urea nitrogen [Mass/Vol] 24 mg/dL High 5-21 [facility] Comment on above: Performed By: #### 1 7123780, 404130392, 72679495 #### [facility] [address] [place] [address] Urea nitrogen/Creatinine [Mass ratio] 20 No Units Normal 10-20 [facility] Comment on above: Performed By: #### 1 1539098, 579916991, 31181567 #### [facility] [address] [place] [address] Sed Rate Automatedon 023 Sed Rate Automated 9 mm/hr Normal 0-34 [facility] Comment on above: Performed By: #### 2 737447, 6457772, 56905005, 07256394, 4510004 #### [facility] [address] [place] [address] Vitamin D 25 Hydroxyon 11-21 25-hydroxyvitamin D3 [Mass/Vol] 25.2 ng/mL Low 30.0-100.0 [facility] Comment on above: Result Comment: Vit khan D deficiency has been defined as a level of serum 25-OH vitamin D less than 20 ng/mL (1,2) by the [place] [employer] and an Endocrine Society practice guideline. The Endocrine Society further defined vitamin D insufficiency as a level between 21 and 29 ng/mL (2). 1. IOM ([place] [employer]). 2010. Dietary reference intakes for calcium and D. [place]: The National Academies Press. 2. Jennifer BERRY, Kaitlin [place], Casey LINARES, et al. Evaluation, treatment, and prevention of vitamin D deficiency: an Endocrine Society clinical practice guideline. JCEM. 2010; 96 (7):1911-30. Performed By: #### 1 3786196, 157191217, 15102495 #### [facility] [address] [place] [address] eGFRon 11-21-2022 GFR/1.73 sq M.predicted among non-blacks MDRD (S/P/Bld) [Vol rate/Area] 47 mL/min/1.73 m2 Low >=59 [facility] Comment on above: Order Comment: Order added by Discern Expert. 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 Kidney failure is indicated at less than 15 mL/min/1.73m2. Performed By: #### 1 4788144, 039269921, 17001151 #### [facility] [address] [place] [address] MA Mamm Screen w/CAD if perf and 3D Bilon 11-17-2022 MA Mamm Screen w/CAD if perf and 3D Eddie Exam Date/Time: 11/15/2022 13:23 EDT Reason for Exam: Z12.31 Report IMPRESSION: BIRADS 2 BENIGN FINDINGS, NORMAL INTERVAL FOLLOW-UP.12 MONTH RECALL. CLINICAL HISTORY: Z12.31. COMPARISON: 08/17/2020. COMMENT: Routine views and tomosynthesis views of both breasts were obtained. There are scattered areas of fibroglandular density. Again identified is the small nodule with calcifications in the central superior left breast. Some of the calcifications are coarser when compared to the prior study. 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 Both breasts are otherwise unremarkable. Of incidental note, there is a loop recorder on the left.\X09\ The examination was reviewed with Computer Aided Detection. Breast Density: No Mammography is very important to your health. The current [employer] and National Comprehensive Cancer Network guidelines recommends annual mammography beginning at age 40. This facility utilizes a reminder system to ensure all patients receive reminder notifications at the appropriate time based on the recommendations of this exam. Board Certified Radiologists. Accredited by the ACR and FDA. Ordering Provider: REFERRAL, SELF FINAL REPORT Dictated: 11/17/2022 11:25 am Juan Jose Pierre M.D. Signed (Electronic Signature): 11/17/2022 11:25 am Signed by: Juan Jose Pierre M.D. Transcribed by: CARLINE Technologist: [facility] Assessment: BI-RADS Category 2-Benign finding Recommendation: Normal interval follow-up Normal [facility] Consent for Treatmenton 10-21 Consent for Treatment [id number]#[id number]:127 Normal [facility] Office Visiton 11-09-2022 Follow-up visit [id number] Kevin Moore 1945 F Date Provider Department Center 11/09/2022 120-EHSAN, RICCO CARD [facility] No family history on file Level of Service:90408 [place] OFFICE/OUTPATIENT ESTABLISHED MOD MDM 30-39 MIN Reason for Visit and Comments: Follow-up [344809] - Yearly follow up Normal [facility] - Microbiology an d Antimicrobial susceptibilityon 10-27-2022 S. aureus and MRSA panel JIMBO+probe (Nose) Negative Negative [facility] CNOVon 10-26-2022 CNOV Office Visit (LOORRM ) -- KIKI MOORE ([id number]) 1945 F Date Time Provider Department 10/26/22 1:45 PM SHAN BOX During your visit today, we recorded the following information about you: Shan Box II, MD 10/27/2022 8:11 AM Signed see dictated note Shan Box II, MD Allergies As of Date: 10/26/2022 Noted Allergy Reaction CELEBREX (CELECOXIB) 08/21/2006 4 - Hives 7 - Swelling VIOXX (ROFECOXIB) 08/21/2006 3 - Cough Comments: states she had extreme dry mouth GABAPENTIN 11/12/2014 14 - Other: See Comments Comments: Syncope with fall Date Reviewed: 10/26/2022 Reviewed by: Kiki Gonzales MA - Fully Assessed Reason for Visit: New [660726] Primary Visit Diagnosis:MRSA (methicillin resistant Staphylococcus aureus) [A49.02] Other Visit Diagnoses:Primary osteoarthritis of left knee [M17.12] Pre-op testing [Z01.818] Status post right knee replacement [Z96.651] History of right hip replacement [Z96.641] Status post bilateral knee replacements [Z96.653] Rheumatoid arthritis with negative rheumatoid factor, involving unspecified site (HCC) [M06.00] Order(s):XR KNEE GENERAL 4V AP BOTH/PA BOTH/LAT/MERC BILATERAL [3448553] Order #: [id number] FUTURE STAPH AUREUS PCR [SQSAPCR] Order #: [id number] FUTURE STAPH AUREUS PCR [SQSAPCR] Order #: [id number]. #:[id number] URINALYSIS, WITH MICROSCOPIC [SQUAWMIC] Order #: [id number] FUTURE CBC + DIFF [SQCBCDIF] Order #: [id number] FUTURE BASIC METABOLIC PNL [SQBMP] Order #: [id number] FUTURE URINE CULTURE [SQURCUL] Order #: [id number] FUTURE TYPE AND SCREEN,30 DAY [HMLLHZ96] Order #: [id number] FUTURE HGB A1C [XNBOB7S] Order #: [id number] FUTURE CONSULT TO(TCI)PRE-OP CLEAR [9027693] Order #: [id number]: 1 CONSULT TO PHYSICAL THERAPY [9032] Order #: [id number]: 1 FUTURE PATIENT PLACED ON ZOË TKA CARE PATH [1652805] Order #: [id number]: 1 SURGICAL REQUEST - ELECTIVE (12/2019) [3934255] Order #: [id number]: 1 Prescriptions as of 10/27/2022 - clindamycin (CLEOCIN) 300 mg capsule Take 1 tablet by mouth 1 hour prior to procedure and 1 tablet by mouth 6 hours after procedure - LISINOPRIL ORAL Take by mouth. - aspirin, enteric coated (ASPIRIN, ENTERIC COATED) 325 mg EC tablet Take 1 tablet by mouth twice daily. - latanoprost (XALATAN) 0.005 % ophthalmic solution 1 Drop daily at bedtime. - METHOTREXATE SODIUM (METHOTREXATE, ANTI-RHEUMATIC, ORAL) Take 2.5 mg by mouth. 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] 06/26/2014 OA (osteoarthritis) [M19.90] 06/26/2014 Glaucoma [H40.9] 06/26/2014 Obesity, Class II, BMI 38.47 [E66.9] 06/26/2014 Rheumatoid arthritis [M06.9] 06/26/2014 Postoperative anemia due to acute blood loss [D*06/26/2014 Thoracic or lumbosacral neuritis or radiculitis*12/01/2014 Lumbosacral spondylosis without myelopathy [M47*12/01/2014 History of spinal surgery [Z98.890] 12/09/2014 Obesity [E66.9] Snoring [R06.83] Back pain [M54.9] RA (rheumatoid arthritis) (HCC) [M06.9] Arthritis of left hip [M16.12] 12/23/2014 Spondylolisthesis of lumbar region [M43.16] 12/23/2014 Lumbar stenosis with neurogenic claudication [M*12/23/2014 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 aureus and MRSA panel JIMBO+probe (Nose) Normal Negative [facility] Comment on above: Order Comment: Speci men Type: SWAB OF INTERNAL NOSEOrdering Facility: [facility] Address: [address] [address] Result Comment: Nega tive for Staphylococcus aureus by PCR. Negative for MRSA by PCR Performed By: #### S APCR ####[facility] LABCLIA [id number] [facility] [id number] [place] [address] [place] XR KNEE 4V AP/PA/LAT/MERCH B ILon 10-26-2022 XR KNEE 4V AP/PA/LAT/MERCH EDDIE * * *Final Report* * * DATE OF EXAM: Oct 26 2022 1:30PM MICHELLEX 5618 - XR KNEE 4V AP/PA/LAT/MERCH EDDIE / PROCEDURE REASON: Status post bilateral knee replacements * * * * Physician Interpretation * * * * EXAMINATION: XR KNEE 4V AP/PA/LAT/MERCH EDDIE HISTORY: bilateral knee pain/ right replacement Status post bilateral knee replacements . TECHNIQUE: XR KNEE 4V AP/PA/LAT/MERCH EDDIE Laterality: BILATERAL Number of different views (projections): 4 M: XB_1 COMPARISON: RESULT: Right total knee arthroplasty appears intact. There is angulation of the femoral stem with bony remodeling at the lateral femoral cortex. Lucency seen on the medial side of the stem. No abnormal lucency around the tibial component. No significant right knee joint effusion. Severe narrowing in the left lateral compartment with genu valgus deformity. Mild medial and patellofemoral compartment degenerative change of the left knee. Minimal left knee joint effusion. No acute fracture or dislocation. There are no bony erosions. IMPRESSION: Right total knee arthroplasty as described. Severe left lateral compartment osteoarthritis. Polisher And Buffer: MAGDALENE Transcribe Date/Time: Oct 26 2022 1:43P Dictated by : SHAN ANDRADE MD This examination was interpreted and the report reviewed and electronically signed by: SHAN ANDRADE MD on Oct 26 2022 1:45PM EST [id number] Normal [facility] XR KNEE GENERAL 4V AP BOTH/P A BOTH/LAT/MERC BILATERALon 10-26-2022 [facility] Insurance Correspondence Off iceon 10-11-2022 Insurance Correspondence Office [id number]:127 Normal [facility] Auto Diffon 07-25-2022 Basophils/100 WBC (Bld) 0.8 % Normal 0.0-2.0 F [facility] Comment on above: Order Comment: Order Added by Discern Expert. Performed By: #### 2 778206, 1157849, 61711121, 55701420, 6416200, 5291801 #### [facility] [address] [place] [address] Basophils/Leukocytes Auto (Bld) [Pure # fraction] 0.0 E9/L Normal 0.0-0.2 [facility] Comment on above: Order Comment: Order Added by Discern Expert. Performed By: #### 2 294055, 0614579, 75838089, 67528977, 2450658, 6600975 #### [facility] [address] [place] [address] Eosinophils/100 WBC (Bld) 1.4 % Normal 0.0-8.0 [facility] Comment on above: Order Comment: Order Added by Discern Expert. Performed By: #### 2 433545, 7364670, 54523410, 03100147, 8018002, 6783708 #### [facility] [address] [place] [address] Eosinophils/Leukocytes Auto (Bld) [Pure # fraction] 0.1 E9/L Normal 0.0-0.5 [facility] Comment on above: Order Comment: Order Added by Discern Expert. Performed By: #### 2 619787, 7632635, 92103423, 25247271, 6494608, 5315869 #### [facility] [address] [place] [address] Lymphocytes/100 WBC (Bld) 33.5 % Normal 14.0-50.0 [facility] Comment on above: Order Comment: Order Added by Discern Expert. Performed By: #### 2 976505, 0613672, 62516579, 84996692, 0582843, 5063054 #### [facility] [address] [place] [address] Lymphocytes/Leukocytes Auto (Bld) [Pure # fraction] 1.9 E9/L Normal 1.0-4.0 [facility] Comment on above: Order Comment: Order Added by Discern Expert. Performed By: #### 2 971223, 7904533, 70861718, 03733896, 9874584, 8672953 #### [facility] [address] [place] [address] Monocytes/100 WBC (Bld) 13.9 % Normal 4.0-14.0 [facility] Comment on above: Order Comment: Order Added by Discern Expert. Performed By: #### 2 997007, 1495841, 25591009, 97640272, 8666063, 6960443 #### [facility] [address] [place] [address] Monocytes/Leukocytes Auto (Bld) [Pure # fraction] 0.8 E9/L Normal 0.2-1.0 [facility] Comment on above: Order Comment: Order Added by Discern Expert. Performed By: #### 2 056474, 6821204, 81682839, 24626287, 8496805, 8813502 #### [facility] [address] [place] [address] Neutrophils/100 WBC (Bld) 50.4 % Normal 36.0-75.0 [facility] Comment on above: Order Comment: Order Added by Discern Expert. Performed By: #### 2 488232, 2961232, 45434721, 93100632, 9818319, 6767958 #### [facility] [address] [place] [address] Neutrophils/Leukocytes Auto (Bld) [Pure # fraction] 2.9 E9/L Normal 2.0-7.5 [facility] Comment on above: Order Comment: Order Added by Discern Expert. Performed By: #### 2 638849, 8805053, 48788727, 64784835, 9425104, 0867098 #### [facility] [address] [place] [address] CBC w/ Auto Diffon 3 Erythrocyte distribution width (RBC) [Ratio] 15.4 % High 10.9-14.2 [facility] Comment on above: Performed By: #### 2 489615, 3479493, 94091879, 38617633, 1846472, 8387548 #### [facility] [address] [place] [address] Hematocrit (Bld) [Volume fraction] 32.9 % Low 34.0-46.0 [facility] Comment on above: Performed By: #### 2 015812, 6813045, 26769418, 56948485, 5845118, 6239188 #### [facility] [address] [place] [address] Hemoglobin (Bld) [Mass/Vol] 10.6 g/dL Low 12.0-16.0 [facility] Comment on above: Performed By: #### 2 371232, 8799325, 84472057, 00800811, 3667708, 7125194 #### [facility] [address] [place] [address] MCH (RBC) [Entitic mass] 32.5 pg Normal 27.0-34.0 [facility] Comment on above: Performed By: #### 2 309478, 1521144, 47340112, 14533518, 9096616, 0274957 #### [facility] [address] [place] [address] MCHC (RBC) [Mass/Vol] 32.3 g/dL Normal 31.4-36.0 [facility] Comment on above: Performed By: #### 2 214199, 2353165, 63091228, 56583860, 4870296, 9580794 #### [facility] [address] [place] [address] MCV (RBC) [Entitic vol] 100.7 fL High 80.0-100.0 [facility] Comment on above: Performed By: #### 2 586276, 3089651, 35950576, 97174742, 3287670, 4016296 #### [facility] [address] [place], [place] [id number] Platelet mean volume (Bld) [Entitic vol] 7.9 fL Normal 6.4-10.8 [facility] Comment on above: Performed By: #### 2 319882, 1219757, 32595902, 30083167, 2775407, 8149139 #### [facility] [address] [place] [address] Platelets (Bld) [#/Vol] 224.0 E9/L Normal 150. 0-500. 0 [facility] Comment on above: Performed By: #### 2 640825, 0026563, 07101270, 43187564, 2365464, 9088761 #### [facility] [address] [place], [place] [id number] RBC (Bld) [#/Vol] 3.3 E12/L Low 4.3-5.9 [facility] Comment on above: Performed By: #### 2 010128, 9271689, 69630225, 39256112, 4690324, 8601758 #### [facility] [address] [place] [address] WBC corrected for nucl RBC Auto (Bld) [#/Vol] 5.7 E9/L Normal 4.0-11.0 [facility] Comment on above: Performed By: #### 2 634522, 1959548, 90700528, 66563199, 0638286, 1577968 #### [facility] [address] [place], [place] [id number] CHEMISTRYOrdered By: SYSTEM SYSTEM on 07-25-2022 Albumin [Mass/Vol] 4.1 g/dL Normal 3.3 - 5.0 gm/dL [facility] Albumin/Globulin [Mass ratio] 1.5 {ratio} Normal 1.1 - 2.2 [facility] ALP [Catalytic activity/Vol] 150 [iU]/d High 21 - 98 Int._Unit/ L [facility] ALT No additional P-5'-P [Catalytic activity/Vol] 23 [iU]/d Normal 6 - 46 Int._Unit/ L [facility] AST [Catalytic activity/Vol] 31 [iU]/d Normal 5 - 43 Int._Unit/ L [facility] Bilirubin [Mass/Vol] 0.7 mg/dL Normal 0.0 - 1 .1 mg/dL [facility] Bilirubin.direct [Mass/Vol] 0.1 mg/dL Normal 0.1 - 0.4 mg/dL [facility] Bilirubin.indirect [Mass or moles/Vol] 0.6 mg/dL Normal 0.1 - 0.9 mg/dL [facility] Creatinine [Mass/Vol] 1.1 mg/dL Normal 0.5 - 1.3 mg/dL [facility] GFR/1.73 sq M.predicted among blacks MDRD (S/P/Bld) [Vol rate/Area] 59 mL/min/1.73 m2 Normal >=59mL/min /1.73 m2 [facility] Chem S GFR/1.73 sq M.predicted among non-blacks MDRD (S/P/Bld) [Vol rate/Area] 48 mL/min/1.73 m2 Low >=59mL/min /1.73 m2 [facility] Globulin (S) [Mass/Vol] 2.8 g/dL Normal 1.4 - 4.0 gm/dL [facility] Protein [Mass/Vol] 6.9 g/dL Normal 6.0 - 7.8 gm/dL [facility] Creatinineon 07-25-2022 Creatinine [Mass/Vol] 1.1 mg/dL Normal 0.5-1.3 [facility] Comment on above: Performed By: #### 2 718938, 8920995, 05204710, 62557682, 4588926 #### [facility] [address] [place] [address] HEMATOLOGYOrdered By: SYSTEM SYSTEM on 07-25-2022 Basophils/100 WBC (Bld) 0.8 % Normal 0.0 - 2.0 % [facility] Basophils/Leukocytes Auto (Bld) [Pure # fraction] 0.0 E9/L Normal 0.0 - 0.2 E9/L [facility] Eosinophils/100 WBC (Bld) 1.4 % Normal 0.0 - 8.0 % [facility] Eosinophils/Leukocytes Auto (Bld) [Pure # fraction] 0.1 E9/L Normal 0.0 - 0.5 E9/L [facility] Lymphocytes/100 WBC (Bld) 33.5 % Normal 14.0 - 50.0 % [facility] Lymphocytes/Leukocytes Auto (Bld) [Pure # fraction] 1.9 E9/L Normal 1.0 - 4.0 E9/L [facility] Monocytes/100 WBC (Bld) 13.9 % Normal 4.0 - 14.0 % [facility] Monocytes/Leukocytes Auto (Bld) [Pure # fraction] 0.8 E9/L Normal 0.2 - 1.0 E9/L [facility] Neutrophils/100 WBC (Bld) 50.4 % Normal 36.0 - 75.0 % [facility] Neutrophils/Leukocytes Auto (Bld) [Pure # fraction] 2.9 E9/L Normal 2.0 - 7.5 E9/L [facility] HEMATOLOGYOrdered By: Lucy Coon on 07-25-2022 Erythrocyte distribution width (RBC) [Ratio] 15.4 % High 10.9 - 14.2 % [facility] Hematocrit (Bld) [Volume fraction] 32.9 % Low 34.0 - 46.0 % [facility] Hemoglobin (Bld) [Mass/Vol] 10.6 g/dL Low 12.0 - 16.0 gm/dL [facility] MCH (RBC) [Entitic mass] 32.5 pg Normal 27.0 - 34.0 pg [facility] MCHC (RBC) [Mass/Vol] 32.3 g/dL Normal 31.4 - 36.0 gm/dL [facility] MCV (RBC) [Entitic vol] 100.7 fL High 80.0 - 100.0 fL [facility] Platelet mean volume (Bld) [Entitic vol] 7.9 fL Normal 6.4 - 10.8 fL [facility] Platelets (Bld) [#/Vol] 224.0 E9/L Normal 150. 0 - 500.0 E9/L [facility] RBC (Bld) [#/Vol] 3.3 E12/L Low 4.3 - 5.9 E12/L [facility] Sed Rate Automated 14 mm/h Normal 0 - 34 mm/hr [facility] WBC corrected for nucl RBC Auto (Bld) [#/Vol] 5.7 E9/L Normal 4.0 - 11.0 E9/L [facility] Hep Func Panelon 07-25-2022 Albumin [Mass/Vol] 4.1 g/dL Normal 3.3-5.0 [facility] Comment on above: Performed By: #### 2 024404, 3745724, 46792618, 01349167, 2244383 #### [facility] [address] [place] [address] Albumin/Globulin (S) [Mass conc ratio] 1.5 Normal 1.1-2.2 [facility] Comment on above: Performed By: #### 2 959299, 9896549, 77462621, 92791828, 9620773 #### [facility] [address] [place] [address] ALP [Catalytic activity/Vol] 150 Int._Unit/L High 21-98 [facility] Comment on above: Performed By: #### 2 104083, 7045313, 65806481, 41254521, 8172082 #### [facility] [address] [place] [address] ALT No additional P-5'-P [Catalytic activity/Vol] 23 Int._Unit/L Normal 6-46 [facility] Comment on above: Performed By: #### 2 570801, 0972533, 21563331, 32716251, 4654914 #### [facility] [address] [place] [address] AST [Catalytic activity/Vol] 31 Int._Unit/L Normal 5-43 [facility] Comment on above: Performed By: #### 2 445493, 1906623, 77264439, 85468955, 7145788 #### [facility] [address] [place] [address] Bilirubin [Mass/Vol] 0.7 mg/dL Normal 0.0-1.1 [facility] Comment on above: Performed By: #### 2 858150, 6710550, 24923324, 30166913, 2111083 #### [facility] [address] [place] [address] Bilirubin.direct [Mass/Vol] 0.1 mg/dL Normal 0.1-0.4 [facility] Comment on above: Performed By: #### 2 256263, 0666072, 19481620, 58790347, 7408746 #### [facility] [address] [place] [address] Bilirubin.indirect [Mass or moles/Vol] 0.6 mg/dL Normal 0.1-0.9 [facility] Comment on above: Performed By: #### 2 141446, 7929291, 31125073, 47952184, 0143160 #### [facility] [address] [place] [address] Globulin (S) [Mass/Vol] 2.8 g/dL Normal 1.4-4.0 [facility] Comment on above: Performed By: #### 2 734155, 6247740, 84703591, 04604208, 0037658 #### [facility] [address] [place] [address] Protein [Mass/Vol] 6.9 g/dL Normal 6.0-7.8 [facility] Comment on above: Performed By: #### 2 965185, 7187015, 15572113, 93016040, 3540761 #### [facility] [address] [place] [address] Sed Rate Automatedon 023 Sed Rate Automated 14 mm/hr Normal 0-34 [facility] Comment on above: Performed By: #### 2 731558, 7294657, 38884126, 15968325, 5128876 #### [facility] [address] [place] [address] eGFRon 07-25-2022 GFR/1.73 sq M.predicted among blacks MDRD (S/P/Bld) [Vol rate/Area] 59 mL/min/1.73 m2 Normal >=59 [facility] Comment on above: Order Comment: Order added by Discern Expert. Result Comment: eGFR is race adjusted. AA=. Performed By: #### 2 443450, 0533178, 16040485, 04372845, 5496585 #### [facility] [address] [place] [address] GFR/1.73 sq M.predicted among non-blacks MDRD (S/P/Bld) [Vol rate/Area] 48 mL/min/1.73 m2 Low >=59 [facility] Comment on above: Order Comment: Order added by Discern Expert. 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 Kidney failure is indicated at less than 15 mL/min/1.73m2. Performed By: #### 2 200529, 7003778, 55704731, 08083720, 0115329 #### [facility] [address] [place] [address] CHEMISTRYOrdered By: SYSTEM SYSTEM on 06-28-2022 25-hydroxyvitamin D3 [Mass/Vol] 23.8 ng/mL Low 30.0 - 100.0 ng/mL [facility] Albumin [Mass/Vol] 3.7 g/dL Normal 3.3 - 5.0 gm/dL [facility] ALP [Catalytic activity/Vol] 148 [iU]/d High 21 - 98 Int._Unit/ L [facility] Anion gap [Moles/Vol] 14 mmol/L Normal 6 - 16 mEq/L [facility] Calcium [Mass/Vol] 9.0 mg/dL Normal 8.9 - 11. 1 mg/dL [facility] Chloride [Moles/Vol] 101 mmol/L Normal 101 - 1 11 mmol/L [facility] CO2 [Moles/Vol] 23 mmol/L Normal 21 - 31 mmol/L [facility] Creatinine [Mass/Vol] 1.0 mg/dL Normal 0.5 - 1.3 mg/dL [facility] Remisol GFR/1.73 sq M.predicted among blacks MDRD (S/P/Bld) [Vol rate/Area] mL/min/1.73 m2 Normal >=59mL/min /1.73 m2 [facility] Chem S GFR/1.73 sq M.predicted among non-blacks MDRD (S/P/Bld) [Vol rate/Area] 54 mL/min/1.73 m2 Low >=59mL/min /1.73 m2 [facility] Chem S Glucose [Mass/Vol] 98 mg/dL Normal 55 - 199 mg/dL [facility] Magnesium [Mass/Vol] 1.6 mg/dL Normal 1.3 - 2 .4 mg/dL [facility] Phosphate [Mass/Vol] 4.0 mg/dL Normal 1.9 - 4 .6 mg/dL [facility] Potassium [Moles/Vol] 5.1 mmol/L Normal 3.5 - 5.3 mmol/L [facility] Remisol Sodium [Moles/Vol] 133 mmol/L Low 135 - 145 mmol/L [facility] Urea nitrogen [Mass/Vol] 19 mg/dL Normal 5 - 21 mg/dL [facility] Urea nitrogen/Creatinine [Mass ratio] 19 mg/mg Normal 10 - 20 [facility] CHEMISTRYOrdered By: Divine Schafer on 06-28-2022 Creatine (U) [Moles/Vol] 54.2 mg/dL Normal >=10.0mg/d L [facility] Creatinine (24H U) [Moles/Time] 880.8 mg/24hr Low 1000.0 - 2000.0 mg/24hr [facility] Chem S Hrs Amisha 24 h Invalid Interpretation Code [facility] Chem S Sodium (24H U) [Mass/Vol] 133 mmol/24 hr Normal 40 - 220 mmol/24 hr [facility] Chem S Sodium (U) [Moles/Vol] 82 mmol/L Normal >=10mmol/L [facility] - Specimen inform ationOrdered By: Yamileth Murray on 06-28-2022 Specimen volume Unsp time (U) 1625 mL Invalid Interpretation Code [facility] Testing Ordered By: Yamileth Murray on 06-28-2022 Hrs Amisha Ref Lab 24 h Invalid Interpretation Code [facility] Testing Ordered By: Jenny Solorzano on 06-28-2022 Test Code [id number] Invalid Interpretation Code [facility] Test Name n-telo, urine Invalid Interpretation Code [facility] CHEMISTRYOrdered By: [email or web address] SYSTEM on 06-02-2022 Albumin [Mass/Vol] 4.1 g/dL Normal 3.3 - 5.0 gm/dL [facility]isol Albumin/Globulin [Mass ratio] 1.3 {ratio} Normal 1.1 - 2.2 [facility] ALP [Catalytic activity/Vol] 144 [iU]/d High 21 - 98 Int._Unit/ L [facility] ALT No additional P-5'-P [Catalytic activity/Vol] 28 [iU]/d Normal 6 - 46 Int._Unit/ L [facility] Anion gap [Moles/Vol] 13 mmol/L Normal 6 - 16 mEq/L [facility] AST [Catalytic activity/Vol] 42 [iU]/d Normal 5 - 43 Int._Unit/ L [facility] Bilirubin [Mass/Vol] 0.8 mg/dL Normal 0.0 - 1 .1 mg/dL [facility] Calcium [Mass/Vol] 9.4 mg/dL Normal 8.9 - 11. 1 mg/dL [facility] Chloride [Moles/Vol] 100 mmol/L Low 101 - 1 11 mmol/L [facility] CO2 [Moles/Vol] 25 mmol/L Normal 21 - 31 mmol/L [facility] Creatinine [Mass/Vol] 1.0 mg/dL Normal 0.5 - 1.3 mg/dL [facility] GFR/1.73 sq M.predicted among blacks MDRD (S/P/Bld) [Vol rate/Area] mL/min/1.73 m2 Normal >=59mL/min /1.73 m2 [facility] Chem S GFR/1.73 sq M.predicted among non-blacks MDRD (S/P/Bld) [Vol rate/Area] 54 mL/min/1.73 m2 Low >=59mL/min /1.73 m2 [facility] Chem S Globulin (S) [Mass/Vol] 3.1 g/dL Normal 1.4 - 4.0 gm/dL [facility] Glucose [Mass/Vol] 90 mg/dL Normal 55 - 199 mg/dL [facility] Potassium [Moles/Vol] 4.4 mmol/L Normal 3.5 - 5.3 mmol/L [facility] Protein [Mass/Vol] 7.2 g/dL Normal 6.0 - 7.8 gm/dL [facility] Sodium [Moles/Vol] 134 mmol/L Low 135 - 145 mmol/L [facility] Urea nitrogen [Mass/Vol] 19 mg/dL Normal 5 - 21 mg/dL [facility] Urea nitrogen/Creatinine [Mass ratio] 19 mg/mg Normal 10 - 20 [facility] CHEMISTRYOrdered By: SYSTEM SYSTEM on 05-18-2022 Anion gap [Moles/Vol] 10 mmol/L Normal 6 - 16 mEq/L [facility] Calcium [Mass/Vol] 8.6 mg/dL Low 8.9 - 11. 1 mg/dL [facility] Chloride [Moles/Vol] 102 mmol/L Normal 101 - 1 11 mmol/L [facility] CO2 [Moles/Vol] 21 mmol/L Normal 21 - 31 mmol/L [facility] Creatinine [Mass/Vol] 0.8 mg/dL Normal 0.5 - 1.3 mg/dL [facility]isol GFR/1.73 sq M.predicted among blacks MDRD (S/P/Bld) [Vol rate/Area] mL/min/1.73 m2 Normal >=59mL/min /1.73 m2 [facility] Chem S GFR/1.73 sq M.predicted among non-blacks MDRD (S/P/Bld) [Vol rate/Area] mL/min/1.73 m2 Normal >=59mL/min /1.73 m2 [facility] Chem S Glucose [Mass/Vol] 94 mg/dL Normal 55 - 199 mg/dL [facility] Potassium [Moles/Vol] 4.3 mmol/L Normal 3.5 - 5.3 mmol/L [facility] Sodium [Moles/Vol] 129 mmol/L Low 135 - 145 mmol/L [facility] Urea nitrogen [Mass/Vol] 18 mg/dL Normal 5 - 21 mg/dL [facility] Urea nitrogen/Creatinine [Mass ratio] 22 mg/mg High 10 - 20 [facility] HEMATOLOGYOrdered By: SYSTEM SYSTEM on 05-18-2022 Basophils/100 WBC (Bld) 0.3 % Normal 0.0 - 2.0 % [facility] Basophils/Leukocytes Auto (Bld) [Pure # fraction] 0.0 E9/L Normal 0.0 - 0.2 E9/L [facility] Eosinophils/100 WBC (Bld) 0.0 % Normal 0.0 - 8.0 % [facility] Eosinophils/Leukocytes Auto (Bld) [Pure # fraction] 0.0 E9/L Normal 0.0 - 0.5 E9/L [facility] Lymphocytes/100 WBC (Bld) 11.9 % Low 14.0 - 50.0 % [facility] Lymphocytes/Leukocytes Auto (Bld) [Pure # fraction] 1.5 E9/L Normal 1.0 - 4.0 E9/L [facility] Monocytes/100 WBC (Bld) 9.2 % Normal 4.0 - 14.0 % [facility] Monocytes/Leukocytes Auto (Bld) [Pure # fraction] 1.2 E9/L High 0.2 - 1.0 E9/L [facility] Neutrophils/100 WBC (Bld) 78.6 % High 36.0 - 75.0 % [facility] Neutrophils/Leukocytes Auto (Bld) [Pure # fraction] 10.0 E9/L High 2.0 - 7.5 E9/L [facility] HEMATOLOGYOrdered By: Bob Madden on 05-18-2022 Erythrocyte distribution width (RBC) [Ratio] 14.0 % Normal 10.9 - 14.2 % [facility] Hematocrit (Bld) [Volume fraction] 30.0 % Low 34.0 - 46.0 % [facility] Hemoglobin (Bld) [Mass/Vol] 9.9 g/dL Low 12.0 - 16.0 gm/dL [facility] MCH (RBC) [Entitic mass] 32.4 pg Normal 27.0 - 34.0 pg [facility] MCHC (RBC) [Mass/Vol] 32.8 g/dL Normal 31.4 - 36.0 gm/dL [facility] MCV (RBC) [Entitic vol] 98.8 fL Normal 80.0 - 100.0 fL [facility] Platelet mean volume (Bld) [Entitic vol] 7.8 fL Normal 6.4 - 10.8 fL [facility] Platelets (Bld) [#/Vol] 226.0 E9/L Normal 150. 0 - 500.0 E9/L [facility] RBC (Bld) [#/Vol] 3.0 E12/L Low 4.3 - 5.9 E12/L [facility] WBC corrected for nucl RBC Auto (Bld) [#/Vol] 12.7 E9/L High 4.0 - 11.0 E9/L [facility] CHEMISTRYOrdered By: SYSTEM SYSTEM on 05-17-2022 Anion gap [Moles/Vol] 10 mmol/L Normal 6 - 16 mEq/L [facility] Calcium [Mass/Vol] 8.4 mg/dL Low 8.9 - 11. 1 mg/dL [facility] Chloride [Moles/Vol] 102 mmol/L Normal 101 - 1 11 mmol/L [facility] CO2 [Moles/Vol] 21 mmol/L Normal 21 - 31 mmol/L [facility] Cobalamin (Vitamin B12) [Mass/Vol] 835 pg/mL Normal 50 - 1500 pg/mL [facility] Creatinine [Mass/Vol] 0.8 mg/dL Normal 0.5 - 1.3 mg/dL [facility] Ferritin [Mass/Vol] 119 ng/mL Normal 11 - 307 ng/mL [facility] Folate [Mass/Vol] 6.4 ng/mL Low >=6.7ng/mL [facility] GFR/1.73 sq M.predicted among blacks MDRD (S/P/Bld) [Vol rate/Area] mL/min/1.73 m2 Normal >=59mL/min /1.73 m2 [facility] S GFR/1.73 sq M.predicted among non-blacks MDRD (S/P/Bld) [Vol rate/Area] mL/min/1.73 m2 Normal >=59mL/min /1.73 m2 [facility] Chem S Glucose [Mass/Vol] 98 mg/dL Normal 55 - 199 mg/dL [facility] Iron [Mass/Vol] 23 ug/dL Low 35 - 153 mcg/dL [facility] Iron binding capacity [Mass/Vol] 235 ug/dL Low 250 - 400 mcg/dL [facility] LDH [Catalytic activity/Vol] 202 [iU]/d Normal 93 - 218 Int._Unit/ L [facility] Potassium [Moles/Vol] 4.4 mmol/L Normal 3.5 - 5.3 mmol/L [facility] Sodium [Moles/Vol] 129 mmol/L Low 135 - 145 mmol/L [facility] Transferrin [Mass/Vol] 168 mg/dL Low 200 - 370 mg/dL [facility] Urea nitrogen [Mass/Vol] 17 mg/dL Normal 5 - 21 mg/dL [facility] Urea nitrogen/Creatinine [Mass ratio] 21 mg/mg High 10 - 20 [facility] HEMATOLOGYOrdered By: SYSTEM SYSTEM on 05-17-2022 Basophils/100 WBC (Bld) 0.2 % Normal 0.0 - 2.0 % [facility] Basophils/Leukocytes Auto (Bld) [Pure # fraction] 0.0 E9/L Normal 0.0 - 0.2 E9/L [facility] Eosinophils/100 WBC (Bld) 0.0 % Normal 0.0 - 8.0 % [facility] Eosinophils/Leukocytes Auto (Bld) [Pure # fraction] 0.0 E9/L Normal 0.0 - 0.5 E9/L [facility] Lymphocytes/100 WBC (Bld) 6.6 % Low 14.0 - 50.0 % [facility] Lymphocytes/Leukocytes Auto (Bld) [Pure # fraction] 0.9 E9/L Low 1.0 - 4.0 E9/L [facility] Monocytes/100 WBC (Bld) 8.8 % Normal 4.0 - 14.0 % [facility] Monocytes/Leukocytes Auto (Bld) [Pure # fraction] 1.3 E9/L High 0.2 - 1.0 E9/L [facility] Neutrophils/100 WBC (Bld) 84.4 % High 36.0 - 75.0 % [facility] Neutrophils/Leukocytes Auto (Bld) [Pure # fraction] 12.0 E9/L High 2.0 - 7.5 E9/L [facility] HEMATOLOGYOrdered By: Valerio Schafer on 05-17-2022 Erythrocyte distribution width (RBC) [Ratio] 13.9 % Normal 10.9 - 14.2 % [facility] Hematocrit (Bld) [Volume fraction] 30.2 % Low 34.0 - 46.0 % [facility] Hemoglobin (Bld) [Mass/Vol] 9.9 g/dL Low 12.0 - 16.0 gm/dL [facility] MCH (RBC) [Entitic mass] 31.8 pg Normal 27.0 - 34.0 pg [facility] MCHC (RBC) [Mass/Vol] 32.7 g/dL Normal 31.4 - 36.0 gm/dL [facility] MCV (RBC) [Entitic vol] 97.2 fL Normal 80.0 - 100.0 fL [facility] Platelet mean volume (Bld) [Entitic vol] 8.5 fL Normal 6.4 - 10.8 fL [facility] Platelets (Bld) [#/Vol] 176.0 E9/L Normal 150. 0 - 500.0 E9/L [facility] RBC (Bld) [#/Vol] 3.1 E12/L Low 4.3 - 5.9 E12/L [facility] Reticulocytes/100 RBC (Bld) 0.7 % Normal 0.5 - 1.5 % [facility] Comment on above: Result Comment: This Reticulocyte Count Has Been Corrected For Anemia WBC corrected for nucl RBC Auto (Bld) [#/Vol] 14.2 E9/L High 4.0 - 11.0 E9/L [facility] Laboratory - Microbiology an d Antimicrobial susceptibilityOrdered By: Dinorah Salgado on 05-17-2022 MRSA DNA JIMBO+probe Ql (Unsp spec) MRSA Negative. [facility] CHEMISTRYOrdered By: SYSTEM SYSTEM on 05-16-2022 Anion gap [Moles/Vol] 5 mmol/L Low 6 - 16 mEq/L [facility] Calcium [Mass/Vol] 8.2 mg/dL Low 8.9 - 11. 1 mg/dL [facility] Chloride [Moles/Vol] 101 mmol/L Normal 101 - 1 11 mmol/L [facility] CO2 [Moles/Vol] 23 mmol/L Normal 21 - 31 mmol/L [facility] Creatinine [Mass/Vol] 1.0 mg/dL Normal 0.5 - 1.3 mg/dL [facility] GFR/1.73 sq M.predicted among blacks MDRD (S/P/Bld) [Vol rate/Area] mL/min/1.73 m2 Normal >=59mL/min /1.73 m2 [facility] S GFR/1.73 sq M.predicted among non-blacks MDRD (S/P/Bld) [Vol rate/Area] 54 mL/min/1.73 m2 Low >=59mL/min /1.73 m2 [facility] Chem S Glucose [Mass/Vol] 112 mg/dL Normal 55 - 199 mg/dL [facility] Potassium [Moles/Vol] 4.1 mmol/L Normal 3.5 - 5.3 mmol/L [facility] Sodium [Moles/Vol] 125 mmol/L Low 135 - 145 mmol/L [facility] Urea nitrogen [Mass/Vol] 20 mg/dL Normal 5 - 21 mg/dL [facility] Urea nitrogen/Creatinine [Mass ratio] 20 mg/mg Normal 10 - 20 [facility] HEMATOLOGYOrdered By: SYSTEM SYSTEM on 05-16-2022 Basophils/100 WBC (Bld) 0.1 % Normal 0.0 - 2.0 % [facility] Basophils/Leukocytes Auto (Bld) [Pure # fraction] 0.0 E9/L Normal 0.0 - 0.2 E9/L [facility] Eosinophils/100 WBC (Bld) 0.0 % Normal 0.0 - 8.0 % [facility] Eosinophils/Leukocytes Auto (Bld) [Pure # fraction] 0.0 E9/L Normal 0.0 - 0.5 E9/L [facility] Lymphocytes/100 WBC (Bld) 6.8 % Low 14.0 - 50.0 % [facility] Lymphocytes/Leukocytes Auto (Bld) [Pure # fraction] 1.2 E9/L Normal 1.0 - 4.0 E9/L [facility] Monocytes/100 WBC (Bld) 7.7 % Normal 4.0 - 14.0 % [facility] Monocytes/Leukocytes Auto (Bld) [Pure # fraction] 1.4 E9/L High 0.2 - 1.0 E9/L [facility] Neutrophils/100 WBC (Bld) 85.4 % High 36.0 - 75.0 % [facility] Neutrophils/Leukocytes Auto (Bld) [Pure # fraction] 15.1 E9/L High 2.0 - 7.5 E9/L [facility] HEMATOLOGYOrdered By: Ivy mays on 05-16-2022 Erythrocyte distribution width (RBC) [Ratio] 13.8 % Normal 10.9 - 14.2 % [facility] Hematocrit (Bld) [Volume fraction] 29.8 % Low 34.0 - 46.0 % [facility] Hemoglobin (Bld) [Mass/Vol] 9.7 g/dL Low 12.0 - 16.0 gm/dL [facility] MCH (RBC) [Entitic mass] 32.1 pg Normal 27.0 - 34.0 pg [facility] MCHC (RBC) [Mass/Vol] 32.4 g/dL Normal 31.4 - 36.0 gm/dL [facility] MCV (RBC) [Entitic vol] 99.0 fL Normal 80.0 - 100.0 fL [facility] Platelet mean volume (Bld) [Entitic vol] 8.1 fL Normal 6.4 - 10.8 fL [facility] Platelets (Bld) [#/Vol] 151.0 E9/L Normal 150. 0 - 500.0 E9/L [facility] RBC (Bld) [#/Vol] 3.0 E12/L Low 4.3 - 5.9 E12/L [facility] WBC corrected for nucl RBC Auto (Bld) [#/Vol] 17.7 E9/L High 4.0 - 11.0 E9/L [facility] [place] [facility] Comment on above: Result Comment: Slid e reviewed by LW. CHEMISTRYOrdered By: Lucy morris on 05-15-2022 Sodium (U) [Moles/Vol] 14 mmol/L Invalid Interpretation Code [facility] Remisol U Osmolality 529 mOsm/kg Normal 50 - 1400 mOsm/kg [facility] UA SS Osmolality [Osmolality] 278 mosm/kg Normal 275 - 295 mOsm/kg [facility] Man UA SS CHEMISTRYOrdered By: SYSTEM SYSTEM on 05-15-2022 Procalcitonin 2.00 ng/mL High 0.00 - 0.50 ng/mL [facility] TSH Qn 0.74 m[IU]/L Normal 0.34 - 5.60 mcIU/mL [facility] Laboratory - Microbiology an d Antimicrobial susceptibilityOrdered By: Dinorah Salgado on 05-15-2022 Bacteria identified Cx Nom (U) 200 cfu/ml Mixed skin contaminants [facility] Testing Ordered By: Rick Quinones on 05-15-2022 Cortisol [Mass/Vol] 35.5 ug/dL Invalid Interpretation Code [facility] [place] [facility]OutsSS Comment on above: Result Comment: Harvinder isol AM 6.2 - 19.4 Cortisol PM 2.3 - 11.9 Performed at: [facility] [address] [id number] PhD Be Serra URINALYSISOrdered By: Lucy Coon on 05-15-2022 Bacteria LM Ql (Urine sed) Trace /HPF Normal Trace/HPF [facility] UA Auto SS Bilirubin Ql (U) Negative (05/15/22 5:10 PM) Normal Negative [facility] UA Auto SS Clarity (U) Clear (05/15/22 5:10 PM) Normal Clear [facility] UA Auto SS Color (U) Yellow (05/15/22 5:10 PM) Normal Yellow [facility] UA Auto SS Epithelial cells.squamous LM.HPF (Urine sed) [#/Area] 0-2 /HPF Normal 0-2/HPF [facility] UA Auto SS Glucose Test strip (U) [Mass/Vol] Negative (05/15/22 5:10 PM) Normal Negative [facility] UA Auto SS Hemoglobin Ql (U) Negative (05/15/22 5:10 PM) Normal Negative [facility] UA Auto SS Ketones (U) [Mass/Vol] Negative (05/15/22 5:10 PM) Normal Negative [facility] UA Auto SS Ekron.plasma/Ekron. RBC (Bld) [Mass ratio] 0-3 /HPF Normal 0-3/HPF [facility] UA Auto SS Nitrite Ql (U) Negative (05/15/22 5:10 PM) Normal Negative [facility] UA Auto SS pH (U) 5.0 *NA* (05/15/22 5:10 PM) Invalid Interpretation Code 5.0 - 9.0 [facility] UA Auto SS Protein (U) [Mass/Vol] Trace *ABN* (05/15/22 5:10 PM) Invalid Interpretation Code Negative [facility] UA Auto SS Specific gravity (U) [Rel density] >=1.030 *NA* (05/15/22 5:10 PM) Invalid Interpretation Code 1.005 - 1.030 [facility] Auto SS UA Spec Desc Random Urine (05/15/22 5:10 PM) Normal [facility] UA Auto SS Urobilinogen Qn (U) [id number] {Lily'U}/dL Normal 0.0 - 1.0 EU/dL [facility] UA Auto SS WBC Auto Ql (U) 2+ *ABN* (05/15/22 5:10 PM) Invalid Interpretation Code Negative [facility] UA Auto SS WBC LM.HPF (Urine sed) [#/Area] 6-15 /HPF Invalid Interpretation Code 0-5/HPF [facility] UA Auto SS MICRO OTHER TESTSOrdered By: Zafar Cheung on 05-14-2022 Rapid COV Int NEG Ctl Pass (05/14/22 8:33 PM) Normal [facility] Rapid COV Int POS Ctl Pass (05/14/22 8:33 PM) Normal [facility] SARS-CoV+SARS-CoV-2 (COVID-19) Ag IA.rapid Ql (Resp) Not Detected (05/14/22 8:33 PM) Normal Not Detected [facility] No Panel InformationOrdered By: ANGPROCESSSERVER MICROBIOLOGY on 05-14-2022 Blood Culture Charcoal No growth at 3 da ys. Final to follow at 7 days. [facility] Blood Culture Charcoal No growth at 3 da ys. Final to follow at 7 days. [facility] Alkaline Phosphatase Isoenzy meon 04-27-2022 ALP [Catalytic activity/Vol] 178 U/L High 44-121 [facility] Comment on above: Order Comment: FASTI NG: N Performed By: #### H APT, RETIC #### [address] Bone Fraction 60 % Normal 14-68 [facility] Comment on above: Order Comment: FASTI NG: N Performed By: #### H APT, RETIC #### [address] Intestinal Fraction 1 % Normal 0-18 [facility] Comment on above: Order Comment: FASTI NG: N Result Comment: Perf ormed at: - [facility] [address] [id number] [employer] Cutter Helper: Ponce Lr PhD, Phone: [phone] PERFORMED BY: [place] [address] PATHOLOGIST ENRICHMENT DIRECTOR KWADWO PULIDO M.D. Performed By: #### H APT, RETIC #### [address] Liver Fraction 39 % Normal 18-85 [facility] Comment on above: Order Comment: FASTI NG: N Performed By: #### H APT, RETIC #### [address] Basic Metabolic Panelon 12-0 Estimated GFR ( Edwin > 60 Normal [facility] Comment on above: Result Comment: GFR estimated reference range: According to KDOQI guidelines, <60 ml/min/1.73m2 is sufficient to diagnose a patient with chronic kidney disease. Performed By: #### M G, PHOS, TSH3, BMP, PTH #### [facility] [address] [place] [address] #### ALK PHOSIS #### [facility] , Estimated GFR (Non- Am 54 Normal [facility] Comment on above: Performed By: #### M G, PHOS, TSH3, BMP, PTH #### [facility] [address] [place] [address] #### ALK PHOSIS #### [facility] , Estimated glomerular filtrat ion rate (GFR) non- AmericanOrdered By: Leonel Aguirre on 04-27-2022 GFR/1.73 sq M.predicted among non-blacks MDRD (S/P/Bld) [Vol rate/Area] 54 mL/Min [facility] MagnesiumOrdered By: Leonel Aguirre on 04-27-2022 Magnesium [Mass/Vol] 1.7 mg/dL Normal 1.6-2.6 [facility] Comment on above: Performed By: #### M G, PHOS, TSH3, BMP, PTH #### [address] #### ALK PHOSIS #### [facility] , No Panel InformationOrdered By: Leonel Aguirre on 04-27-2022 Estimated GFR () > 60 mL/Min [facility] Comment on above: GFR estimated refere nce range: According to KDOQI guidelines, <60 ml/min/1.73m2 is sufficient to diagnose a patient with chronic kidney disease. Pharmacy Creatinine Clearance (Chem N/A [facility] Parathyroid Hormone Intacton 04-27-2022 Parathyroid Hormone Intact 244.8 pg/mL High [facility] Comment on above: Result Comment: PERF ORMED BY: [place] [address] PATHOLOGIST ENRICHMENT DIRECTOR KWADWO PULIDO M.D. Performed By: #### H APT, RETIC #### [address] Phosphate [Mass/volume] in S shanti or PlasmaOrdered By: Leonel Aguirre on 04-27-2022 Phosphate [Mass/Vol] 4.3 mg/dL Normal 2.5-4.6 [facility] Comment on above: Performed By: #### M G, PHOS, TSH3, BMP, PTH #### [address] [place] [address] [place] #### ALK PHOSIS #### [facility] , Serum or plasma anion gap de terminationOrdered By: Leonel Aguirre on 04-27-2022 Anion gap [Moles/Vol] 14.6 mmol/L Normal 6.0-15.0 [facility] Comment on above: Performed By: #### M G, PHOS, TSH3, BMP, PTH #### [facility] [address] [place] [address] [place] #### ALK PHOSIS #### [facility] , Serum or plasma calcium zuleyma urement (mass/volume)Ordered By: Leonel Aguirre on 04-27-2022 Calcium [Mass/Vol] 9.2 mg/dL Normal 8.2-10.2 [facility] Comment on above: Performed By: #### M G, PHOS, TSH3, BMP, PTH #### [facility] [address] [place] [address] [place] #### ALK PHOSIS #### [facility] , Serum or plasma chloride niko surement (moles/volume)Ordered By: Leonel Aguirre on 04-27-2022 Chloride [Moles/Vol] 98 mmol/L Normal 95-114 [facility] Comment on above: Performed By: #### M G, PHOS, TSH3, BMP, PTH #### [facility] [address] [place] [address] [place] #### ALK PHOSIS #### [facility] , Serum or plasma creatinine m easurement with calculation of estimated glomerular filtrOrdered By: Leonel Aguirre on 04-27-2022 Creatinine [Mass/Vol] 1.00 mg/dL Normal 0.44-1.03 [facility] Comment on above: Performed By: #### M G, PHOS, TSH3, BMP, PTH #### [facility] [address] [place] [address] [place] #### ALK PHOSIS #### [facility] , Serum or plasma glucose zuleyma urement (mass/volume)Ordered By: Leonel Aguirre on 04-27-2022 Glucose [Mass/Vol] 102 mg/dL High 70-100 [facility] Comment on above: ADA recommended refe rence rangeRandom Glucose Reference Range is dependent on time and content of last meal. Glucose of more than 200 mg/dL in a nonstressed, ambulatory subject supports the diagnosis of Diabetes Mellitus. Result Comment: [place] om Glucose Reference Range is dependent on time and content of last meal. Glucose of more than 200 mg/dL in a nonstressed, ambulatory subject supports the diagnosis of Diabetes Mellitus. ADA recommended reference range Performed By: #### M G, PHOS, TSH3, BMP, PTH #### [facility] [address] [place] [address] [place] #### ALK PHOSIS #### [facility] , Serum or plasma intact parat hyroid hormone measurement (mass/volume)Ordered By: Leonel Aguirre on 04-27-2022 Parathyrin.intact [Mass/Vol] 244.8 pg/mL [facility] Serum or plasma potassium me asurement (moles/volume)Ordered By: Leonel Aguirre on 04-27-2022 Potassium [Moles/Vol] 5.0 mmol/L Normal 3.5-5.1 [facility] Comment on above: Performed By: #### M G, PHOS, TSH3, BMP, PTH #### [facility] [address] [place] [address] [place] #### ALK PHOSIS #### [facility] , Serum or plasma sodium measu rement (moles/volume)Ordered By: Leonel Aguirre on 04-27-2022 Sodium [Moles/Vol] 130 mmol/L Low 136-146 [facility] Comment on above: Performed By: #### M G, PHOS, TSH3, BMP, PTH #### [facility] [address] [place] [address] [place] #### ALK PHOSIS #### [facility] , Serum or plasma thyroid stim ulating hormone (TSH) measurement by high sensitivity metOrdered By: Leonel Aguirre on 04-27-2022 TSH Qn 0.85 m[IU]/L Normal 0.45-5.33 [facility] Comment on above: Performed By: #### M G, PHOS, TSH3, BMP, PTH #### [facility] [address] [place] [address] [place] #### ALK PHOSIS #### [facility] , Serum or plasma total carbon dioxide measurement (moles/volume)Ordered By: Leonel Aguirre on 04-27-2022 CO2 [Moles/Vol] 22.4 mmol/L Normal 22.0-30.0 [facility] Comment on above: Performed By: #### M G, PHOS, TSH3, BMP, PTH #### [facility] [address] [place] [address] [place] #### ALK PHOSIS #### [facility] , Serum or plasma urea nitroge n measurement (mass/volume)Ordered By: Leonel Aguirre on 04-27-2022 Urea nitrogen [Mass/Vol] 17 mg/dL Normal 9-23 [facility] Comment on above: Performed By: #### M G, PHOS, TSH3, BMP, PTH #### [place] [address] [place] #### ALK PHOSIS #### [facility] , CHEMISTRYOrdered By: SYSTEM SYSTEM on 04-22-2022 Cobalamin (Vitamin B12) [Mass/Vol] 478 pg/mL Normal 50 - 1500 pg/mL [facility] Laboratory - Chemistry and C hemistry - challengeOrdered By: SYSTEM SYSTEM on 04-22-2022 Albumin [Mass/Vol] 4.0 g/dL Normal 3.3 - 5.0 gm/dL [facility] Remisol Albumin/Globulin [Mass ratio] 1.7 {ratio} Normal 1.1 - 2.2 [facility] ALP [Catalytic activity/Vol] 140 [iU]/d High 21 - 98 Int._Unit/ L [facility] Rem[facility] ALT No additional P-5'-P [Catalytic activity/Vol] 21 [iU]/d Normal 6 - 46 Int._Unit/ L [facility] Rem[facility] AST [Catalytic activity/Vol] 32 [iU]/d Normal 5 - 43 Int._Unit/ L [facility] Bilirubin [Mass/Vol] 0.4 mg/dL Normal 0.0 - 1 .1 mg/dL [facility] Bilirubin.direct [Mass/Vol] 0.1 mg/dL Normal 0.1 - 0.4 mg/dL [facility] Bilirubin.indirect [Mass or moles/Vol] 0.3 mg/dL Normal 0.1 - 0.9 mg/dL [facility] Creatinine [Mass/Vol] 1.0 mg/dL Normal 0.5 - 1.3 mg/dL [facility] GFR/1.73 sq M.predicted among blacks MDRD (S/P/Bld) [Vol rate/Area] mL/min/1.73 m2 Normal >=59mL/min /1.73 m2 [facility] Chem S GFR/1.73 sq M.predicted among non-blacks MDRD (S/P/Bld) [Vol rate/Area] 54 mL/min/1.73 m2 Low >=59mL/min /1.73 m2 [facility] Chem S Globulin (S) [Mass/Vol] 2.3 g/dL Normal 1.4 - 4.0 gm/dL [facility] Remisol Protein [Mass/Vol] 6.3 g/dL Normal 6.0 - 7.8 gm/dL [facility] Laboratory - Hematology and Cell countsOrdered By: SYSTEM SYSTEM on 04-22-2022 Basophils/100 WBC (Bld) 1.0 % Normal 0.0 - 2.0 % [facility] HemeAutoSS Basophils/Leukocytes Auto (Bld) [Pure # fraction] 0.1 E9/L Normal 0.0 - 0.2 E9/L [facility]eAuto[facility] Eosinophils/100 WBC (Bld) 0.5 % Normal 0.0 - 8.0 % [facility]eAuto[facility] Eosinophils/Leukocytes Auto (Bld) [Pure # fraction] 0.0 E9/L Normal 0.0 - 0.5 E9/L [facility]eAutoSS Lymphocytes/100 WBC (Bld) 25.8 % Normal 14.0 - 50.0 % [facility]eAutoSS Lymphocytes/Leukocytes Auto (Bld) [Pure # fraction] 1.5 E9/L Normal 1.0 - 4.0 E9/L [facility]eAutoSS Monocytes/100 WBC (Bld) 11.1 % Normal 4.0 - 14.0 % [facility]eAutoSS Monocytes/Leukocytes Auto (Bld) [Pure # fraction] 0.7 E9/L Normal 0.2 - 1.0 E9/L [facility]eAutoSS Neutrophils/100 WBC (Bld) 61.6 % Normal 36.0 - 75.0 % [facility]eAutoSS Neutrophils/Leukocytes Auto (Bld) [Pure # fraction] 3.7 E9/L Normal 2.0 - 7.5 E9/L [facility]eAutoSS Laboratory - Hematology and Cell countsOrdered By: Radha Aldridge on 04-22-2022 Erythrocyte distribution width (RBC) [Ratio] 13.5 % Normal 10.9 - 14.2 % [facility]eAutoSS Hematocrit (Bld) [Volume fraction] 31.1 % Low 34.0 - 46.0 % [facility]eAutoSS Hemoglobin (Bld) [Mass/Vol] 10.6 g/dL Low 12.0 - 16.0 gm/dL [facility]eAutoSS MCH (RBC) [Entitic mass] 32.8 pg Normal 27.0 - 34.0 pg [facility] MCHC (RBC) [Mass/Vol] 33.9 g/dL Normal 31.4 - 36.0 gm/dL [facility] MCV (RBC) [Entitic vol] 96.8 fL Normal 80.0 - 100.0 fL [facility]eAutoSS Platelet mean volume (Bld) [Entitic vol] 9.1 fL Normal 6.4 - 10.8 fL [facility]eAutoSS Platelets (Bld) [#/Vol] 168.0 E9/L Normal 150. 0 - 500.0 E9/L [facility]eAutoSS RBC (Bld) [#/Vol] 3.2 E12/L Low 4.3 - 5.9 E12/L [facility]eAutoSS WBC corrected for nucl RBC Auto (Bld) [#/Vol] 6.0 E9/L Normal 4.0 - 11.0 E9/L [facility]eAuto[facility] No Panel InformationOrdered By: Radha Aldridge on 04-22-2022 Sed Rate Automated 9 mm/h Normal 0 - 34 mm/hr [facility] CHEMISTRYOrdered By: SYSTEM SYSTEM on 02-05-2022 Albumin [Mass/Vol] 3.8 g/dL Normal 3.3 - 5.0 gm/dL [facility] Remisol Albumin/Globulin [Mass ratio] 1.4 {ratio} Normal 1.1 - 2.2 [facility] ALP [Catalytic activity/Vol] 126 [iU]/d High 21 - 98 Int._Unit/ L [facility] Rem[facility] ALT No additional P-5'-P [Catalytic activity/Vol] 23 [iU]/d Normal 6 - 46 Int._Unit/ L [facility] Anion gap [Moles/Vol] 14 mmol/L Normal 6 - 16 mEq/L [facility] AST [Catalytic activity/Vol] 34 [iU]/d Normal 5 - 43 Int._Unit/ L [facility] Bilirubin [Mass/Vol] 0.7 mg/dL Normal 0.0 - 1 .1 mg/dL [facility] Calcium [Mass/Vol] 8.8 mg/dL Low 8.9 - 11. 1 mg/dL [facility] Chloride [Moles/Vol] 97 mmol/L Low 101 - 1 11 mmol/L [facility] CO2 [Moles/Vol] 23 mmol/L Normal 21 - 31 mmol/L [facility] Creatinine [Mass/Vol] 1.2 mg/dL Normal 0.5 - 1.3 mg/dL [facility] CRP [Mass/Vol] 4.9 mg/dL High <=1.9mg/dL [facility] GFR/1.73 sq M.predicted among blacks MDRD (S/P/Bld) [Vol rate/Area] 53 mL/min/1.73 m2 Low >=59mL/min /1.73 m2 [facility] Chem S GFR/1.73 sq M.predicted among non-blacks MDRD (S/P/Bld) [Vol rate/Area] 44 mL/min/1.73 m2 Low >=59mL/min /1.73 m2 [facility] S Globulin (S) [Mass/Vol] 2.7 g/dL Normal 1.4 - 4.0 gm/dL [facility] Glucose [Mass/Vol] 113 mg/dL Normal 55 - 199 mg/dL [facility] Potassium [Moles/Vol] 4.3 mmol/L Normal 3.5 - 5.3 mmol/L [facility] Protein [Mass/Vol] 6.5 g/dL Normal 6.0 - 7.8 gm/dL [facility] Sodium [Moles/Vol] 130 mmol/L Low 135 - 145 mmol/L [facility] Urea nitrogen [Mass/Vol] 23 mg/dL High 5 - 21 mg/dL [facility] Urea nitrogen/Creatinine [Mass ratio] 19 mg/mg Normal 10 - 20 [facility] HEMATOLOGYOrdered By: SYSTEM SYSTEM on 02-05-2022 Basophils/100 WBC (Bld) 0.4 % Normal 0.0 - 2.0 % [facility]eAutoSS Basophils/Leukocytes Auto (Bld) [Pure # fraction] 0.0 E9/L Normal 0.0 - 0.2 E9/L [facility] Eosinophils/100 WBC (Bld) 0.1 % Normal 0.0 - 8.0 % [facility]eAutoSS Eosinophils/Leukocytes Auto (Bld) [Pure # fraction] 0.0 E9/L Normal 0.0 - 0.5 E9/L [facility] Lymphocytes/100 WBC (Bld) 8.0 % Low 14.0 - 50.0 % [facility]eAuto[facility] Lymphocytes/Leukocytes Auto (Bld) [Pure # fraction] 0.9 E9/L Low 1.0 - 4.0 E9/L [facility]eAuto[facility] Monocytes/100 WBC (Bld) 8.5 % Normal 4.0 - 14.0 % [facility]eAutoSS Monocytes/Leukocytes Auto (Bld) [Pure # fraction] 1.0 E9/L Normal 0.2 - 1.0 E9/L [facility] Neutrophils/100 WBC (Bld) 83.0 % High 36.0 - 75.0 % [facility] Neutrophils/Leukocytes Auto (Bld) [Pure # fraction] 9.8 E9/L High 2.0 - 7.5 E9/L [facility] HEMATOLOGYOrdered By: Alliso n Jesse on 02-05-2022 Erythrocyte distribution width (RBC) [Ratio] 14.2 % Normal 10.9 - 14.2 % [facility] Hematocrit (Bld) [Volume fraction] 30.3 % Low 34.0 - 46.0 % [facility] Hemoglobin (Bld) [Mass/Vol] 10.1 g/dL Low 12.0 - 16.0 gm/dL [facility] MCH (RBC) [Entitic mass] 33.6 pg Normal 27.0 - 34.0 pg [facility] MCHC (RBC) [Mass/Vol] 33.2 g/dL Normal 31.4 - 36.0 gm/dL [facility] MCV (RBC) [Entitic vol] 101.4 fL High 80.0 - 100.0 fL [facility] Platelet mean volume (Bld) [Entitic vol] 8.2 fL Normal 6.4 - 10.8 fL [facility] Platelets (Bld) [#/Vol] 185.0 E9/L Normal 150. 0 - 500.0 E9/L [facility] RBC (Bld) [#/Vol] 3.0 E12/L Low 4.3 - 5.9 E12/L [facility] WBC corrected for nucl RBC Auto (Bld) [#/Vol] 11.8 E9/L High 4.0 - 11.0 E9/L [facility] Laboratory - Chemistry and C hemistry - challengeOrdered By: SYSTEM SYSTEM on 01-28-2022 Albumin [Mass/Vol] 4.1 g/dL Normal 3.3 - 5.0 gm/dL [facility] Albumin/Globulin [Mass ratio] 1.8 {ratio} Normal 1.1 - 2.2 [facility] ALP [Catalytic activity/Vol] 123 [iU]/d High 21 - 98 Int._Unit/ L [facility] Rem[facility] ALT No additional P-5'-P [Catalytic activity/Vol] 22 [iU]/d Normal 6 - 46 Int._Unit/ L [facility] AST [Catalytic activity/Vol] 33 [iU]/d Normal 5 - 43 Int._Unit/ L [facility] Bilirubin [Mass/Vol] 0.8 mg/dL Normal 0.0 - 1 .1 mg/dL [facility] Bilirubin.direct [Mass/Vol] 0.2 mg/dL Normal 0.1 - 0.4 mg/dL [facility] Bilirubin.indirect [Mass or moles/Vol] 0.6 mg/dL Normal 0.1 - 0.9 mg/dL [facility] Creatinine [Mass/Vol] 0.9 mg/dL Normal 0.5 - 1.3 mg/dL [facility] GFR/1.73 sq M.predicted among blacks MDRD (S/P/Bld) [Vol rate/Area] mL/min/1.73 m2 Normal >=59mL/min /1.73 m2 [facility] Chem S GFR/1.73 sq M.predicted among non-blacks MDRD (S/P/Bld) [Vol rate/Area] mL/min/1.73 m2 Normal >=59mL/min /1.73 m2 [facility] S Globulin (S) [Mass/Vol] 2.3 g/dL Normal 1.4 - 4.0 gm/dL [facility] Protein [Mass/Vol] 6.4 g/dL Normal 6.0 - 7.8 gm/dL [facility] Laboratory - Hematology and Cell countsOrdered By: SYSTEM SYSTEM on 01-28-2022 Basophils/100 WBC (Bld) 1.0 % Normal 0.0 - 2.0 % [facility]Auto[facility] Basophils/Leukocytes Auto (Bld) [Pure # fraction] 0.0 E9/L Normal 0.0 - 0.2 E9/L [facility] Eosinophils/100 WBC (Bld) 1.1 % Normal 0.0 - 8.0 % [facility] Eosinophils/Leukocytes Auto (Bld) [Pure # fraction] 0.0 E9/L Normal 0.0 - 0.5 E9/L [facility] Lymphocytes/100 WBC (Bld) 32.8 % Normal 14.0 - 50.0 % [facility] Lymphocytes/Leukocytes Auto (Bld) [Pure # fraction] 1.3 E9/L Normal 1.0 - 4.0 E9/L [facility] Monocytes/100 WBC (Bld) 10.9 % Normal 4.0 - 14.0 % [facility] Monocytes/Leukocytes Auto (Bld) [Pure # fraction] 0.4 E9/L Normal 0.2 - 1.0 E9/L [facility] Neutrophils/100 WBC (Bld) 54.2 % Normal 36.0 - 75.0 % [facility] Neutrophils/Leukocytes Auto (Bld) [Pure # fraction] 2.2 E9/L Normal 2.0 - 7.5 E9/L [facility] Laboratory - Hematology and Cell countsOrdered By: Radha Aldridge on 01-28-2022 Erythrocyte distribution width (RBC) [Ratio] 14.9 % High 10.9 - 14.2 % [facility] Hematocrit (Bld) [Volume fraction] 30.0 % Low 34.0 - 46.0 % [facility] Hemoglobin (Bld) [Mass/Vol] 10.2 g/dL Low 12.0 - 16.0 gm/dL [facility] MCH (RBC) [Entitic mass] 34.5 pg High 27.0 - 34.0 pg [facility] MCHC (RBC) [Mass/Vol] 34.1 g/dL Normal 31.4 - 36.0 gm/dL [facility] MCV (RBC) [Entitic vol] 101.2 fL High 80.0 - 100.0 fL [facility] Platelet mean volume (Bld) [Entitic vol] 9.0 fL Normal 6.4 - 10.8 fL [facility] Platelets (Bld) [#/Vol] 189.0 E9/L Normal 150. 0 - 500.0 E9/L [facility] RBC (Bld) [#/Vol] 3.0 E12/L Low 4.3 - 5.9 E12/L [facility] WBC corrected for nucl RBC Auto (Bld) [#/Vol] 4.0 E9/L Normal 4.0 - 11.0 E9/L [facility] No Panel InformationOrdered By: Radha Aldridge on 01-28-2022 Sed Rate Automated 9 mm/h Normal 0 - 34 mm/hr [facility] Albumin [Mass/volume] in Ser um or PlasmaOrdered By: Leonel Aguirre on 12-23-2021 Albumin [Mass/Vol] 4.0 g/dL 3.2-5.5 [facility] Basophils Auto (Bld) [#/Vol] Ordered By: Leonel Aguirre on 12-23-2021 Basophils (Bld) [#/Vol] 0.0 10*3/uL 0.0-0.2 [facility] Basophils/100 WBC Auto (Bld) Ordered By: Leoenl Aguirre on 12-23-2021 Basophils/100 WBC (Bld) 0.2 % . F [facility] Blood hemoglobin measurement (mass/volume)Ordered By: Leonel Aguirre on 12-23-2021 Hemoglobin (Bld) [Mass/Vol] 9.8 g/dL 11.8-15.4 [facility] Blood leukocytes automated c ount (number/volume)Ordered By: Leonel Aguirre on 12-23-2021 WBC (Bld) [#/Vol] 4.3 10*3/uL 4.5-11.0 [facility] C reactive protein [Mass/vol ume] in Serum or PlasmaOrdered By: Leonel Aguirre on 12-23-2021 CRP [Mass/Vol] < 0.5 mg/dL 0.0-1.0 [facility] Creatinine and Glomerular fi ltration rate.predicted panel (S/P/Bld)Ordered By: Leonel Aguirre on 12-23-2021 Creatinine [Mass/Vol] 1.13 mg/dL 0.44-1.03 [facility] Eosinophils Auto (Bld) [#/Vo l]Ordered By: Leonel Aguirre on 12-23-2021 Eosinophils (Bld) [#/Vol] 0.0 10*3/uL 0.0-0.45 [facility] Eosinophils/100 WBC Auto (Bl d)Ordered By: Leonel Aguirre on 12-23-2021 Eosinophils/100 WBC (Bld) 0.0 % . [facility] Erythrocyte distribution wid th Auto (RBC) [Ratio]Ordered By: Leonel Aguirre on 12-23-2021 Erythrocyte distribution width (RBC) [Ratio] 14.7 % 11.9-15.3 [facility] Erythrocyte sedimentation ra te by Photometric methodOrdered By: Leonel Aguirre on 12-23-2021 ESR Photometric method (Bld) [Velocity] 2 mm/hr 0-29 [facility] Estimated glomerular filtrat ion rate (GFR) non- AmericanOrdered By: Leonel Aguirre on 12-23-2021 GFR/1.73 sq M.predicted among non-blacks MDRD (S/P/Bld) [Vol rate/Area] 47 mL/Min [facility] Globulin Calc (S) [Mass/Vol] Ordered By: Leonel Aguirre on 12-23-2021 Globulin (S) [Mass/Vol] 1.8 g/dL F [facility] Hematocrit Auto (Bld) [Volum e fraction]Ordered By: Leonel Aguirre on 12-23-2021 Hematocrit (Bld) [Volume fraction] 29.8 % 34.0-46.4 [facility] Hepatitis B virus surface Ag [Presence] in Serum or Plasma by ImmunoassayOrdered By: Leonel Aguirre on 12-23-2021 HBV surface Ag IA Ql Negative Negative [facility] Laboratory - Hematology and Cell countsOrdered By: Leonel Aguirre on 12-23-2021 Nucleated RBC/100 WBC (Bld) [Ratio] 0.1 % 0-0.5 [facility] Lymphocytes Auto (Bld) [#/Vo l]Ordered By: Leonel Aguirre on 12-23-2021 Lymphocytes (Bld) [#/Vol] 0.5 10*3/uL 1.00-4.8 [facility] Lymphocytes/100 WBC Auto (Bl d)Ordered By: Leonel Aguirre on 12-23-2021 Lymphocytes/100 WBC (Bld) 12.2 % . [facility] MCH Auto (RBC) [Entitic mass ]Ordered By: Leonel Aguirre on 12-23-2021 MCH (RBC) [Entitic mass] 34.1 pg 24.7-34.3 [facility] MCHC Auto (RBC) [Mass/Vol]Or dered By: Leonel Aguirre on 12-23-2021 MCHC (RBC) [Mass/Vol] 32.9 g/dL 32.0-35.0 [facility] MCV Auto (RBC) [Entitic vol] Ordered By: Leonel Aguirre on 12-23-2021 MCV (RBC) [Entitic vol] 103.7 fL 80-100 [facility] Monocytes Auto (Bld) [#/Vol] Ordered By: Leonel Aguirre on 12-23-2021 Monocytes (Bld) [#/Vol] 0.2 10*3/uL 0.0-0.8 [facility] Monocytes/100 WBC Auto (Bld) Ordered By: Leonel Aguirre on 12-23-2021 Monocytes/100 WBC (Bld) 4.4 % . [facility] Neutrophils Auto (Bld) [#/Vo l]Ordered By: Leonel Aguirre on 12-23-2021 Neutrophils (Bld) [#/Vol] 3.6 10*3/uL 1.8-7.7 [facility] Neutrophils/100 WBC Auto (Bl d)Ordered By: Leonel Aguirre on 12-23-2021 Neutrophils/100 WBC (Bld) 83.2 % . [facility] No Panel InformationOrdered By: Leonel Aguirre on 12-23-2021 Estimated GFR () 57 mL/Min [facility] Comment on above: GFR estimated refere nce range: According to KDOQI guidelines, <60 ml/min/1.73m2 is sufficient to diagnose a patient with chronic kidney disease. Hepatitis B Core Total Antibody Negative Negative [facility] Comment on above: Performed at: [place] [id number] [employer]: Ponce Lr PhD, Phone: [phone] Hepatitis C Interpretation See comment . [facility] Comment on above: Negative Not infected with HCV, unless recent infection is suspected or other evidence exists to indicate HCV infection. Hepatitis C RNA Quantitative N/A [facility] Creatinine Clearance (Chem N/A [facility] Platelet mean volume Auto (B ld) [Entitic vol]Ordered By: Leonel Aguirre on 12-23-2021 Platelet mean volume (Bld) [Entitic vol] 8.5 fL 6.3-10.7 [facility] Platelets Auto (Bld) [#/Vol] Ordered By: Leonel Aguirre on 12-23-2021 Platelets (Bld) [#/Vol] 139 10*3/uL 150-450 [facility] Protein [Mass/volume] in Ser um or PlasmaOrdered By: Leonel Aguirre on 12-23-2021 Protein [Mass/Vol] 5.8 g/dL 6.1-7.9 [facility] RBC Auto (Bld) [#/Vol]Ordere d By: Leonel Aguirre on 12-23-2021 RBC (Bld) [#/Vol] 2.87 10*6/uL 3.60-5.00 [facility] Serum hepatitis B virus surf alex antibody detectionOrdered By: Leonel Aguirre on 12-23-2021 HBV surface Ab Ql (S) Non-Reactive . F [facility] Comment on above: Non Reactive: Incons istent with immunity, less than 10 mIU/mL Reactive: Consistent with immunity, greater than 9.9 mIU/mL Serum nuclear antibody titer Ordered By: Leonel Aguirre on 12-23-2021 Nuclear Ab (S) [Titer] Negative . Fi [facility] Comment on above: Negative <1:80 Borderline 1:80 Positive >1:80 ICAP nomenclature: AC-[id number] For more information about Hep-2 cell patterns use ANApatterns.org, the official website for the International Consensus on Antinuclear Antibody (EDNA) Patterns (ICAP). Performed at: - [place] [id number] [employer] Helper: Ponce Lr PhD, Phone: [phone] Serum or plasma alanine khan otransferase measurement without P-5'-P (enzymatic activiOrdered By: Leonel Aguirre on 12-23-2021 ALT No additional P-5'-P [Catalytic activity/Vol] 67 U/L 10-60 [facility] Serum or plasma albumin/glob ulin mass ratioOrdered By: Leonel Aguirre on 12-23-2021 Albumin/Globulin [Mass ratio] 2.2 {ratio} [facility] Serum or plasma alkaline gaston sphatase measurement (enzymatic activity/volume)Ordered By: Leonel Aguirre on 12-23-2021 ALP [Catalytic activity/Vol] 87 U/L 32-92 [facility] Serum or plasma aspartate am inotransferase measurement (enzymatic activity/volume)Ordered By: Leonel Aguirre on 12-23-2021 AST [Catalytic activity/Vol] 71 U/L 10-42 [facility] Serum or plasma calcium zuleyma urement (mass/volume)Ordered By: Leonel Aguirre on 12-23-2021 Calcium [Mass/Vol] 9.1 mg/dL 8.2-10.2 [facility] Serum or plasma chloride niko surement (moles/volume)Ordered By: Leonel Aguirre on 12-23-2021 Chloride [Moles/Vol] 99 mmol/L 95-114 [facility] Serum or plasma glucose zuleyma urement (mass/volume)Ordered By: Leonel Aguirre on 12-23-2021 Glucose [Mass/Vol] 101 mg/dL 70-100 [facility] Comment on above: ADA recommended refe rence range Random Glucose Reference Range is dependent on time and content of last meal. Glucose of more than 200 mg/dL in a nonstressed, ambulatory subject supports the diagnosis of Diabetes Mellitus. Serum or plasma hepatitis C virus antibody signal/cutoff ratio by immunoassay (relatiOrdered By: Leonel Aguirre on 12-23-2021 HCV Ab Signal/Cutoff IA [Rel units/Vol] 0.1 s/co ratio 0.0-0.9 [facility] Serum or plasma potassium me asurement (moles/volume)Ordered By: Leonel Aguirre on 12-23-2021 Potassium [Moles/Vol] 5.8 mmol/L 3.5-5.1 [facility] Serum or plasma sodium measu rement (moles/volume)Ordered By: Leonel Aguirre on 12-23-2021 Sodium [Moles/Vol] 133 mmol/L 136-146 [facility] Serum or plasma total biliru bin measurement (mass/volume)Ordered By: Leonel Aguirre on 12-23-2021 Bilirubin [Mass/Vol] 0.9 mg/dL 0.3-1.2 [facility] Serum or plasma total carbon dioxide measurement (moles/volume)Ordered By: Leonel Aguirre on 12-23-2021 CO2 [Moles/Vol] 24.1 mmol/L 22.0-30.0 [facility] Serum or plasma urea nitroge n measurement (mass/volume)Ordered By: Leonel Aguirre on 12-23-2021 Urea nitrogen [Mass/Vol] 16 mg/dL 9-23 [facility] CHEMISTRYOrdered By: SYSTEM SYSTEM on 10-28-2021 CRP [Mass/Vol] 0.5 mg/dL Normal <=1.9mg/dL [facility] Remisol HEMATOLOGYOrdered By: Melissa King on 10-28-2021 Sed Rate Automated 8 mm/h Normal 0 - 34 mm/hr [facility] HemeAutoSS Reference Laboratory Testing Ordered By: Abril Holder on 10-28-2021 Lab Miscellaneous clerical error Invalid Interpretation Code [facility] Reference Laboratory Testing Ordered By: Esmer Becerra on 10-28-2021 Test Code [id number] Invalid Interpretation Code [facility] Test Name vit b6 Invalid Interpretation Code [facility] Complete Blood Counton 07-20 Erythrocyte distribution width (RBC) [Ratio] 15.4 % High 11.0-15.0 [facility] Comment on above: Performed By: #### C BC, CMP, LIPD #### [facility] [address], [place] [id number] Hematocrit (Bld) [Volume fraction] 31.7 % Low 35.0-47.0 [facility] Comment on above: Performed By: #### C BC, CMP, LIPD #### [facility] [address], [place] [id number] Hemoglobin (Bld) [Mass/Vol] 10.0 g/dL Low 11.6-15.5 [facility] Comment on above: Performed By: #### C BC, CMP, LIPD #### [facility] [address], [place] [id number] MCH (RBC) [Entitic mass] 33.6 pg High 27.0-33.0 [facility] Comment on above: Performed By: #### C BC, CMP, LIPD #### [facility] [address], [place] [id number] MCHC (RBC) [Mass/Vol] 31.5 g/dL Low 32.0-36.0 [facility] Comment on above: Performed By: #### C BC, CMP, LIPD #### [facility] [address], [place] [id number] MCV (RBC) [Entitic vol] 106 fL High 80-100 [facility] Comment on above: Performed By: #### C BC, CMP, LIPD #### [facility] [address], [place] [id number] Platelet mean volume (Bld) [Entitic vol] 10.70 fL Normal 7.50-12.50 [facility] Comment on above: Performed By: #### C BC, CMP, LIPD #### [facility] [address], [place] [id number] Platelets (Bld) [#/Vol] 189 10*3/uL Normal 140-400 [facility] Comment on above: Performed By: #### C BC, CMP, LIPD #### [facility] [address], [place] [id number] RBC (Bld) [#/Vol] 2.98 10*6/uL Low 3.90-5.20 [facility] Comment on above: Performed By: #### C BC, CMP, LIPD #### [facility] [address], [place] [id number] RDW-SD 58.5 fL High 37.0-50.0 [facility] Comment on above: Performed By: #### C BC, CMP, LIPD #### [facility] [address], [place] [id number] WBC (Bld) [#/Vol] 5.7 10*3/uL Normal 3.8-11.0 [facility] Comment on above: Performed By: #### C BC, CMP, LIPD #### [facility] [address], [place] [id number] Comprehensive Metabolic Pane edel 07-20-2021 Albumin [Mass/Vol] 4.2 g/dL Normal 3.6-5.1 [facility] Comment on above: Performed By: #### C BC, CMP, LIPD #### [facility] [address], [place] [id number] Albumin/Globulin [Mass ratio] 2.0 {ratio} Normal 1.0-2.5 [facility] Comment on above: Performed By: #### C BC, CMP, LIPD #### [facility] [address] [place], [place] [id number] ALP [Catalytic activity/Vol] 117 U/L Normal 35-119 [facility] Comment on above: Performed By: #### C BC, CMP, LIPD #### [facility] [address] [place], [place] [id number] ALT [Catalytic activity/Vol] 34 U/L High 6-33 [facility] Comment on above: Result Comment: 04/21 Female reference range changed. Performed By: #### C BC, CMP, LIPD #### [facility] [address] [place], [place] [id number] Anion gap [Moles/Vol] 19 mmol/L Normal 12-20 [facility] Comment on above: Result Comment: Effe ctive 05/27/2019 reference range changed. Performed By: #### C BC, CMP, LIPD #### [facility] [address] [facility] [place] [id number] AST [Catalytic activity/Vol] 45 U/L High 9-34 [facility] Comment on above: Performed By: #### C BC, CMP, LIPD #### [facility] [address] [facility] [place] [id number] Bilirubin [Mass/Vol] 0.65 mg/dL Normal 0.30-1.20 [facility] Comment on above: Performed By: #### C BC, CMP, LIPD #### [facility] [address] [facility] [place] [id number] BUN/CREA 16 Ratio Normal 6-22 [facility] Comment on above: Performed By: #### C BC, CMP, LIPD #### [facility] [address] [place], [place] [id number] Calcium [Mass/Vol] 9.3 mg/dL Normal 8.6-10.2 [facility] Comment on above: Performed By: #### C BC, CMP, LIPD #### [facility] [address] [place] [id number] Chloride [Moles/Vol] 101 mmol/L Normal 98-107 [place] [facility] Comment on above: Performed By: #### C BC, CMP, LIPD #### [facility] [address] [facility] [id number] CO2 [Moles/Vol] 22 mmol/L Normal 20-31 [facility] Comment on above: Performed By: #### C BC, CMP, LIPD #### [facility] [address] [facility] [place] [id number] Creatinine [Mass/Vol] 1.1 mg/dL Normal 0.6-1.4 [facility] Specialist Comment on above: Performed By: #### C BC, CMP, LIPD #### [facility] [address] [facility] [place] [id number] eGFRAA 61 mL/min/1.73m2 Normal >60 [facility] Comment on above: Performed By: #### C BC, CMP, LIPD #### [facility] [address], [place] [id number] eGFRNAA 51 mL/min/1.73m2 Low >60 [facility] Comment on above: Performed By: #### C BC, CMP, LIPD #### [facility] [address] [facility] [place] [id number] Globulin (S) [Mass/Vol] 2.1 g/dL Normal 1.9-3.7 [facility] Specialist Comment on above: Performed By: #### C BC, CMP, LIPD #### [facility] [address] [facility] [place] [id number] Glucose [Mass/Vol] 94 mg/dL Normal 65-99 [facility] Comment on above: Result Comment: For FASTING Glucose --- ADA reference ranges: Normal 65-99 mg/dl Prediabetes 100-125 Diabetes >/= 126 Performed By: #### C BC, CMP, LIPD #### [facility] [address] [facility] [place] [id number] Potassium [Moles/Vol] 5.1 mmol/L Normal 3.5-5.5 [facility] Specialist Comment on above: Performed By: #### C BC, CMP, LIPD #### [facility] [address] [facility] [place] [id number] Protein [Mass/Vol] 6.3 g/dL Normal 6.1-8.1 [facility] Specialist Comment on above: Performed By: #### C BC, CMP, LIPD #### [facility] [address], [place] [id number] Sodium [Moles/Vol] 137 mmol/L Normal 135-146 [facility] Specialist Comment on above: Performed By: #### C BC, CMP, LIPD #### [facility] [address], [place] [id number] Urea nitrogen [Mass/Vol] 17 mg/dL Normal 7-25 [facility] Comment on above: Performed By: #### C BC, CMP, LIPD #### [facility] [address], [place] [id number] Hemoglobin A1Con 07-20-2021 EAG 108.28 Normal [facility] Comment on above: Performed By: #### A 1C #### [facility] [address], [place] [id number] HbA1c (Bld) [Mass fraction] 5.4 % Normal 4.0-6.0 [facility] Comment on above: Performed By: #### A 1C #### [facility] [address], [place] [id number] Lipid Panelon 07-20-2021 Cholesterol [Mass/Vol] 145 mg/dL Normal 125-200 [facility] Comment on above: Result Comment: Low risk < 200mg/dL Borderline risk 201-239 mg/dl High risk > or equal to 240 Performed By: #### C BC, CMP, LIPD #### [facility] [address], [place] [id number] Cholesterol in HDL [Mass/Vol] 75 mg/dL Normal >40 [facility] Comment on above: Result Comment: High Cardiovascular Risk HDL <40 mg/dL Low Cardiovascular Risk HDL > or equal to 60 mg/dl Performed By: #### C BC, CMP, LIPD #### [facility] [address], [place] [id number] Cholesterol in LDL [Mass/Vol] 53 mg/dL Normal [facility] Comment on above: Result Comment: LDL ATP III CLASSIFICATION LDL less than 100 mg/dl Optimal LDL 100-129 mg/dl Near or above optimal LDL 130-159 Borderline high LDL 160-189 High LDL greater than 189 mg/dl Very High Performed By: #### C BC, CMP, LIPD #### [facility] [address], [place] [id number] Cholesterol in VLDL [Mass/Vol] 17 mg/dL Normal [facility] Special[facility] Comment on above: Performed By: #### C BC, CMP, LIPD #### [facility] [address], [place] [id number] Cholesterol.total/Carrie sterol in HDL [Mass ratio] 2 {ratio} Normal [facility] Special[facility] Comment on above: Performed By: #### C BC, CMP, LIPD #### [facility] [address], [place] [id number] Triglyceride [Mass/Vol] 86 mg/dL Normal 30-[address] [facility] Specialist Comment on above: Result Comment: TRIG ATPIII CLASSIFICATIONS TRIG less than 150 mg/dl Normal TRIG 150-199 mg/dl Borderline High TRIG 200-500 mg/dl High TRIG greather than 500 mg/dl Very High Performed By: #### C BC, CMP, LIPD #### [facility] [address], [place] [id number] TSHon 07-20-2021 TSH 1.310 uIU/mL Normal 0.400-4.50 0 [facility] Comment on above: Performed By: #### T SH #### [facility] [address], [place] [id number] Vitamin B12/Folateon 022 Cobalamin (Vitamin B12) [Mass/Vol] 447 pg/mL Normal 211-946 [facility] Comment on above: Performed By: #### B 12/Fol #### [facility] [address], [place] [id number] FOL 16.2 ng/mL Normal >4.7 [facility] Comment on above: Result Comment: Refe rence range change 04/07/2017. Prior reference range F 4.8-37.3 ng/mL, M 4.5-32.2 ng/mL. Performed By: #### B 12/Fol #### [facility] [address] [place], [place] [id number] PROLACTINon 04-01-2021 Prolactin 29.3 ng/mL Critically high 4.8-23.3 [facility] Comment on above: Performed By: #### P ROLAC #### [facility] [address] [place] [address] Dr. Alma Rosa Rosado BNPon 03-31-2021 Natriuretic peptide B (Bld) [Mass/Vol] 981.0 pg/mL Normal <=1,800.0 [facility] Comment on above: Performed By: #### C RP, BNP, RENAL, BMP #### [facility] [address] [place] [address] Dr. Alma Rosa Rosado CBC AUTO DIFFon 03-31-2021 BASO # 0.0 103/ul Normal 0.0-0.1 [facility] Comment on above: Performed By: #### C BC #### [facility] [address] [place] [address] Dr. Alma Rosa Rosado Basophils/100 WBC (Bld) 0.6 % Normal 0.2-2.0 [facility] Comment on above: Performed By: #### C BC #### [facility] [address] [place] [address] Dr. Alma Rosa Rosado EO # 0.0 103/ul Normal 0.0-0.7 [facility] Comment on above: Performed By: #### C BC #### [facility] [address] [place] [address] Dr. Alma Rosa Rosado Eosinophils/100 WBC (Bld) 0.0 % Critically low 0.9-7.0 [facility] Comment on above: Performed By: #### C BC #### [facility] [address] [place] [address] Dr. Alma Rosa Rosado Erythrocyte distribution width (RBC) [Ratio] 13.4 % Normal 11.0-15.0 [facility] Comment on above: Performed By: #### C BC #### [facility] [address] [place] [address] Dr. Alma Rosa Rosado Hematocrit (Bld) [Volume fraction] 30.1 % Critically low 36.0-48.0 [facility] Comment on above: Performed By: #### C BC #### [facility] [address] [place] [address] Dr. Alma Rosa Rosado Hemoglobin (Bld) [Mass/Vol] 9.7 g/dL Critically low 12.0-16.0 [facility] Comment on above: Performed By: #### C BC #### [facility] [address] [place] [address] Dr. Alma Rosa Rosado IG # 0.05 10e3/ul Critically high 0.00-0.03 [facility] Comment on above: Performed By: #### C BC #### [facility] [address] [place] [address] Dr. Alma Rosa Rosado IG % 1.0 % Critically high 0.0-0.5 [facility] Comment on above: Performed By: #### C BC #### [facility] [address] [place] [address] Dr. Alma Rosa Rosado LYMPH # 1.2 103/ul Normal 1.2-3.8 [facility] Comment on above: Performed By: #### C BC #### [facility] [address] [place] [address] Dr. Alma Rosa Rosado Lymphocytes/100 WBC (Bld) 23.8 % Normal 20.5-60.0 [facility] Comment on above: Performed By: #### C BC #### [facility] [address] [place] [address] Dr. Alma Rosa Rosado MANUAL DIFF REQ NO Normal [facility] Comment on above: Performed By: #### C BC #### [facility] [address] [place] [address] Dr. Alma Rosa Rosado MCH (RBC) [Entitic mass] 33.3 pg Normal 26.7-34.0 [facility] Comment on above: Performed By: #### C BC #### [facility] [address] [place] [address] Dr. Alma Rosa Rosado MCHC (RBC) [Mass/Vol] 32.2 g/dL Normal 29.9-35.2 [facility] Comment on above: Performed By: #### C BC #### [facility] [address] [address] [address] Alma Rosa Rosado MCV (RBC) [Entitic vol] 103.4 fL Critically high 81.0-99 .0 [facility] Comment on above: Performed By: #### C BC #### [facility] [address] [address] [address] Alma Rosa Rosado MONO # 0.5 103/ul Normal 0.3-0.8 [facility] Comment on above: Performed By: #### C BC #### [facility] [address] [address] [address] Alma Rosa Rosado Monocytes/100 WBC (Bld) 11.0 % Normal 1.7-12.0 [facility] Comment on above: Performed By: #### C BC #### [facility] [address] [place] [address] Dr. Alma Rosa Rosado NEUT # 3.1 103/ul Normal 1.4-6.5 [facility] Comment on above: Performed By: #### C BC #### [facility] [address] [place] [address] Dr. Alma Rosa Rosado Neutrophils/100 WBC (Bld) 63.6 % Normal 43.0-75.0 [facility] Comment on above: Performed By: #### C BC #### [facility] [address] [address] [address] Alma Rosa Rosado Platelet mean volume (Bld) [Entitic vol] 10.0 fL Normal 9.5-13.5 [facility] Comment on above: Performed By: #### C BC #### [facility] [address] [address] [address] Alma Rosa Rosado PLT 165 103/ul Normal 150-450 [facility] Comment on above: Performed By: #### C BC #### [facility] [address] [place] [address] Dr. Alma Rosa Rosado RBC 2.91 106/ul Critically low 4.20-5.40 [facility] Comment on above: Performed By: #### C BC #### [facility] [address] [place] [address] Dr. Alma Rosa Rosado WBC 4.8 103/ul Normal 4.0-11.0 [facility] Comment on above: Performed By: #### C BC #### [facility] [address] [place] [address] Dr. Alma Rosa Rosado CRPon 03-31-2021 CRP [Mass/Vol] mg/L Normal <=1.0 [facility] Comment on above: Performed By: #### C RP, BNP, RENAL, BMP #### [facility] [address] [place] [address] Dr. Alma Rosa Rosado PROF CHEM 8 (BAS METB)on Anion gap [Moles/Vol] 10.9 mmol/L Normal [facility] Comment on above: Performed By: #### C RP, BNP, RENAL, BMP #### [facility] [address] [place] [address] Dr. Alma Rosa Rosado Calcium [Mass/Vol] 8.4 mg/dL Normal 8.4-10.2 [facility] Comment on above: Performed By: #### C RP, BNP, RENAL, BMP #### [facility] [address] [place] [address] Dr. Alma Rosa Rosado Chloride [Moles/Vol] 99 mmol/L Normal 98-107 [facility] Comment on above: Performed By: #### C RP, BNP, RENAL, BMP #### [facility] [address] [place] [address] Dr. Alma Rosa Rosado CO2 [Moles/Vol] 26.6 mmol/L Normal 22.0-30.0 [facility] Comment on above: Performed By: #### C RP, BNP, RENAL, BMP #### [facility] [address] [place] [address] Dr. Alma Rosa Rosado Creatinine [Mass/Vol] 0.83 mg/dL Normal 0.52-1.04 [facility] Comment on above: Performed By: #### C RP, BNP, RENAL, BMP #### [facility] [address] [address] [address] Alma Rosa Rosado EGFR-AF [place] >60 Normal >=60 [facility] Comment on above: Performed By: #### C RP, BNP, RENAL, BMP #### [facility] [address] [place] [address] Dr. Alma Rosa Rosado EGFR-NON AF [place] >60 Normal >=60 [facility] Comment on above: Performed By: #### C RP, BNP, RENAL, BMP #### [facility] [address] [place] [address] Dr. Alma Rosa Rosado Glucose [Mass/Vol] 101 mg/dL Normal 74-106 [facility] Comment on above: Performed By: #### C RP, BNP, RENAL, BMP #### [facility] [address] [place] [address] Dr. Alma Rosa Rosado Potassium [Moles/Vol] 4.4 mmol/L Normal 3.4-5.0 [facility] Comment on above: Performed By: #### C RP, BNP, RENAL, BMP #### [facility] [address] [place] [address] Dr. Alma Rosa Rosado Sodium [Moles/Vol] 132 mmol/L Critically low 137-145 [facility] Comment on above: Performed By: #### C RP, BNP, RENAL, BMP #### [facility] [address] [place] [address] Dr. Alma Rosa Rosado Urea nitrogen [Mass/Vol] 20.0 mg/dL Critically high 7.0-17.0 [facility] Comment on above: Performed By: #### C RP, BNP, RENAL, BMP #### [facility] [address] [place] [address] Dr. Alma Rosa Rosado Urea nitrogen/Creatinine [Mass ratio] 24.0 mg/mg Normal [facility] Comment on above: Performed By: #### C RP, BNP, RENAL, BMP #### [facility] [address] [place] [address] Dr. Alma Rosa Rosado RENAL FUNCTION PANELon 03-31 Albumin [Mass/Vol] 3.4 g/dL Critically low 3.5-5.0 [facility] Comment on above: Performed By: #### C RP, BNP, RENAL, BMP #### [facility] [address] [address] [address] Alma Rosa Rosado Phosphate [Mass/Vol] 3.3 mg/dL Normal 2.5-4.5 [facility] Comment on above: Performed By: #### C RP, BNP, RENAL, BMP #### [facility] [address] [address] [address] Alma Rosa Rosado [facility] SED RATE <1 Normal <=30 [facility] Comment on above: Performed By: #### S EDR #### [facility] [address] [place] [address] Dr. Alma Rosa Rosado Hugo 03-18-2021 ALT [Catalytic activity/Vol] 31 U/L Normal 7 - 45 [facility] Comment on above: Result Comment: Zainab ents treated with Sulfasalazine may generate falsely decreased results for ALT. Performed By: #### A LT #### [address] [id number] [place]ie 03-18-2021 AST [Catalytic activity/Vol] 39 U/L Normal 9 - 39 [facility] Comment on above: Performed By: #### A ST #### [address] [id number] CBC AND DIFFERENTIALon 03-18 % AUTOMATED IMMATURE GRAN 0.8 % Normal 0.0 - 0.9 [facility] Comment on above: Result Comment: Sally ture Granulocyte Count (IG) includes promyelocytes, myelocytes and metamyelocytes but does not include bands. Percent differential counts (%) should be interpreted in the context of the absolute cell counts (cells/L). Performed By: #### C BCDF #### [address] [id number] Basophils (Bld) [#/Vol] 0.03 10*3/uL Normal 0.00 - 0.10 [facility] Comment on above: Performed By: #### C BCDF #### [address] [id number] Basophils/100 WBC (Bld) 0.5 % Normal 0.0 - 2.0 [facility] Comment on above: Performed By: #### C BCDF #### [address] [id number] Erythrocyte distribution width (RBC) [Ratio] 13.2 % Normal 11.5 - 14.5 [facility] Comment on above: Performed By: #### C BCDF #### [address] [id number] Hematocrit (Bld) [Volume fraction] 31.2 % Low 36.0 - 46.0 [facility] Comment on above: Performed By: #### C BCDF #### [address] [id number] Hemoglobin (Bld) [Mass/Vol] 9.7 g/dL Low 12.0 - 16.0 [facility] Comment on above: Performed By: #### C BCDF #### [address] [id number] Lymphocytes (Bld) [#/Vol] 0.89 10*3/uL Normal 0.80 - 3.00 [facility] Comment on above: Performed By: #### C BCDF #### [address] [id number] Lymphocytes/100 WBC (Bld) 13.9 % Normal 13.0 - 44.0 [facility] Comment on above: Performed By: #### C BCDF #### [address] [id number] [facility] (RBC) [Mass/Vol] 31.1 g/dL Low 32.0 - 36.0 [facility] Comment on above: Performed By: #### C BCDF #### [address] [id number] MCV (RBC) [Entitic vol] 108 fL High 80 - 100 [facility] Comment on above: Performed By: #### C BCDF #### [address] [id number] Monocytes (Bld) [#/Vol] 0.63 10*3/uL Normal 0.05 - 0.80 [facility] Comment on above: Performed By: #### C BCDF #### [address] [id number] Monocytes/100 WBC (Bld) 9.9 % Normal 2.0 - 10.0 [facility] Comment on above: Performed By: #### C BCDF #### [address] [id number] Neutrophils (Bld) [#/Vol] 4.78 10*3/uL Normal 1.60 - 5.50 [facility] Comment on above: Performed By: #### C BCDF #### [address] [id number] Neutrophils/100 WBC (Bld) 74.9 % Normal 40.0 - 80.0 [facility] Comment on above: Performed By: #### C BCDF #### [address] [id number] Platelets (Bld) [#/Vol] 157 10*3/uL Normal 150 - 450 [facility] Comment on above: Performed By: #### C BCDF #### [address] [id number] RBC 2.90 x10E12/L Low 4.00 - 5.20 [facility] Comment on above: Performed By: #### C BCDF #### [address] [id number] WBC (Bld) [#/Vol] 6.4 10*3/uL Normal 4.4 - 11.3 [facility] Comment on above: Performed By: #### C BCDF #### [address] [id number] CREATININEon 03-18-2021 Creatinine [Mass/Vol] 0.87 mg/dL Normal 0.50 - 1.05 [facility] Comment on above: Performed By: #### C REAT #### [address] [id number] GFR- AM. >60 Normal >60 [facility] Comment on above: Result Comment: CALC ULATIONS OF ESTIMATED GFR ARE PERFORMED USING THE MDRD STUDY EQUATION FOR THE IDMS-TRACEABLE CREATININE METHODS. CLIN CHEM 2007;53:766-72 Performed By: #### C REAT #### [address] [id number] GFR-NON AM. >60 Normal >60 [facility] Comment on above: Performed By: #### C REAT #### [address] [id number] SEDIMENTATION RATE, ERYTHROC YTEon 03-18-2021 SEDIMENTATION RATE, ERYTHROCYTE 7 mm/h Normal 0 - 20 [facility] Comment on above: Performed By: #### E SRWS #### [address] [id number] Hugo 07-24-2020 ALT [Catalytic activity/Vol] 34 U/L Normal 7 - 45 [facility] Comment on above: Result Comment: Zainab ents treated with Sulfasalazine may generate falsely decreased results for ALT. Performed By: #### A LT #### [address] [id number] Obie 07-24-2020 AST [Catalytic activity/Vol] 38 U/L Normal 9 - 39 [facility] Comment on above: Performed By: #### A ST #### [address] [id number] CBC AND DIFFERENTIALon 07-24 % AUTOMATED IMMATURE GRAN 0.5 % Normal 0.0 - 0.9 [facility] Comment on above: Result Comment: Sally ture Granulocyte Count (IG) includes promyelocytes, myelocytes and metamyelocytes but does not include bands. Percent differential counts (%) should be interpreted in the context of the absolute cell counts (cells/L). Performed By: #### C BCDF #### [address] [id number] Basophils (Bld) [#/Vol] 0.03 10*3/uL Normal 0.00 - 0.10 [facility] Comment on above: Performed By: #### C BCDF #### [address] [id number] Basophils/100 WBC (Bld) 0.5 % Normal 0.0 - 2.0 [facility] Comment on above: Performed By: #### C BCDF #### [address] [id number] Erythrocyte distribution width (RBC) [Ratio] 14.1 % Normal 11.5 - 14.5 [facility] Comment on above: Performed By: #### C BCDF #### [address] [id number] Hematocrit (Bld) [Volume fraction] 34.9 % Low 36.0 - 46.0 [facility] Comment on above: Performed By: #### C BCDF #### [address] [id number] Hemoglobin (Bld) [Mass/Vol] 10.8 g/dL Low 12.0 - 16.0 [facility] Comment on above: Performed By: #### C BCDF #### [address] [id number] Lymphocytes (Bld) [#/Vol] 1.14 10*3/uL Normal 0.80 - 3.00 [facility] Comment on above: Performed By: #### C BCDF #### [address] [id number] Lymphocytes/100 WBC (Bld) 20.1 % Normal 13.0 - 44.0 [facility] Comment on above: Performed By: #### C BCDF #### [address] [id number] MCHC (RBC) [Mass/Vol] 30.9 g/dL Low 32.0 - 36.0 [facility] Comment on above: Performed By: #### C BCDF #### [address] [id number] MCV (RBC) [Entitic vol] 106 fL High 80 - 100 [facility] Comment on above: Performed By: #### C BCDF #### [address] [id number] Monocytes (Bld) [#/Vol] 0.55 10*3/uL Normal 0.05 - 0.80 [facility] Comment on above: Performed By: #### C BCDF #### [address] [id number] Monocytes/100 WBC (Bld) 9.7 % Normal 2.0 - 10.0 [facility] Comment on above: Performed By: #### C BCDF #### [address] [id number] Neutrophils (Bld) [#/Vol] 3.91 10*3/uL Normal 1.60 - 5.50 [facility] Comment on above: Performed By: #### C BCDF #### [address] [id number] Neutrophils/100 WBC (Bld) 69.2 % Normal 40.0 - 80.0 [facility] Comment on above: Performed By: #### C BCDF #### [address] [id number] Platelets (Bld) [#/Vol] 162 10*3/uL Normal 150 - 450 [facility] Comment on above: Performed By: #### C BCDF #### [address] [id number] RBC 3.28 x10E12/L Low 4.00 - 5.20 [facility] Comment on above: Performed By: #### C BCDF #### [address] [id number] WBC (Bld) [#/Vol] 5.7 10*3/uL Normal 4.4 - 11.3 [facility] Comment on above: Performed By: #### C BCDF #### [address] [id number] CREATININEon 07-24-2020 Creatinine [Mass/Vol] 1.00 mg/dL Normal 0.50 - 1.05 [facility] Comment on above: Performed By: #### C REAT #### [address] [id number] GFR- AM. 65 mL/min/1.73m2 Normal >60 [facility] Comment on above: Result Comment: CALC ULATIONS OF ESTIMATED GFR ARE PERFORMED USING THE MDRD STUDY EQUATION FOR THE IDMS-TRACEABLE CREATININE METHODS. CLIN CHEM 2007;53:766-72 Performed By: #### C REAT #### [address] [id number] GFR-NON AM. 54 mL/min/1.73m2 Abnormal >60 [facility] Comment on above: Performed By: #### C REAT #### [address] [id number] SEDIMENTATION RATE, ERYTHROC YTEon 07-24-2020 SEDIMENTATION RATE, ERYTHROCYTE 1 mm/h Normal 0 - 20 [facility] Comment on above: Performed By: #### E SRWS #### [address] [id number] CHEST AND LATERALon 01-20-20 17 CHEST AND LATERAL [facility] [address] [place] [address] Zainab ent Name: KIKI MOORE : 1945Sex: FAge: Race: WhiteMRN: [id number]. Location: OUTPPatient Status: OVisit #: [id number] Date: 01/19/2017 7:00:00 AMCompleted Date: 01/19/2017 09:22 AMRequesting Provider: JRODAN BURNHAM Attending Provider: ROMINA ROBERTSON V Report Copy To: Signs & Symptoms: Evaluate the deviceHistory: Patient history not availableComments: s/p PFO closureExam: CHEST AND LATERALAccession #: [id number] ===CHEST AND LATERAL 01/19/2017 9:22 AM EDT SIGNS AND SYMPTOMS: Evaluate the device; patient states she had heart surgery- hold closure; s/p PFO closure PROTOCOL: AP(PA) and Lateral views were obtained. COMPARISON: May 12, 2016 FINDINGS: Interval placement of loop recorder in the anterior chest. Cardiac silhouette is enlarged but stable. Aorta is mildly tortuous There is slight left basilar opacity. Trachea is midline. Normal mediastinal silhouette. ASD closure device in place. No pneumothorax or subdiaphragmatic free air. Degenerative changes of the glenohumeral joints and thoracic spine. Soft tissue anchor in the left shoulder from prior rotator cuff repair, unchanged IMPRESSION: Slight left basilar opacity most likely due to atelectasis. Mild cardiomegaly and evidence of prior ASD closure device. Approved by:Delia Marshall on 01/19/2017 10:39 AM EDT. I, Lola Petersen, have reviewed the images and report and concur with these findings. Electronically signed by:Lola Petersen. Transcribed by: [email or web address], User Resident: DELIA Lovellectronically Signed by: LOLA PETERSEN @ 01/19/2017 11:30 AMI personally read this/these film(s) with this resident Normal The [facility] Comment on above: Order Comment: s/p P FO closure Cardiovascular Lab Reporton 01-19-2017 Cardiovascular Lab Report [facility] Patient Name: Kiki Moore MR #: [id number] Physician: Romina Robertson M.D.Department of Service Date: 01/18/2017Medicine Birthdate: 1945Division of Room #: 3AB [id number] CardiovascularServicesUniv [facility]ascosaQcomidkBnflxh[address] [place], [place] [address]Fwaej Fax Cardiovascular Laboratory ReportINDICATION: Kiki Moore is a 72-year-old lady with a cryptogenic stroke.She has PFO with shunting. She underwent investigation for the reason ofthe stroke. There were no reasons aside from the PFO. It was decided toproceed with PFO closure.PROCEDURE:1. Successful PFO closure with Amplatzer 35 mm PFO occluder device.2. Left superior pulmonary venography.3. Intracardiac echocardiography.METHODS: Procedure was explained to the patient with risks and benefits.She signed informed consent. She was brought to laboratory technology teacher in a fastingstate. The patient has been premedicated with aspirin and Plavix. She waspremedicated with antibiotics prior to the procedure.The groin areas were prepped and draped in usual fashion. Access into theright and left common femoral veins was obtained under ultrasound guidanceand a 11-Tristanian sheath was placed in the left femoral vein and a 6-Frenchsheath was placed in the right femoral vein. An AcuNav intracardiacechocardiograp hy catheter was then advanced from the left femoral vein intothe right atrial cavity and used to perform intracardiac echocardiography.A 6-Tristanian multipurpose catheter was advanced from the right femoral veinover a wire and used to cross the patent foramen ovale. An angledGlidewire was used to direct the catheter into the left superior pulmonaryvein. The catheter was advanced. Left superior pulmonary venography wasperformed. The catheter was then used to place a J-tipped Amplatz SuperStiff wire into the left superior pulmonary vein. The catheter wasretracted. The sheath in the femoral vein was retracted. An Amplatzersizing balloon II 24 mm was then advanced and used to perform balloonsizing of the patent foramen ovale at stop-flow diameter, measurement cameback to be about 13 mm by intracardiac echocardiography as well as byfluoroscopy. It was decided to proceed with closure using Amplatzer PFOOccluder 35 mm due to the thickness of the septum.The delivery sheath of the PFO closure device was advanced over the Amplatzwire and positioned in the left atrial cavity. The device was loaded inthe usual fashion and then advanced through the sheath. The left disc wasdeployed. The device was brought backwards and the right disc wasdeployed. Adequate placement was confirmed by fluoroscopy andechocardiography. The device was released. Additional echocardiographicimages were obtained confirming adequate placement of the device with noimpingement on any cardiac structures.At this time, the procedure was concluded. The intracardiacechocardiograp hy catheter was removed. The delivery sheath in the rightfemoral vein was exchanged to a 11-Tristanian Hondo sheath. The patienttolerated the procedure well. There was no evidence of neurologicaldefects at the end of the procedure. Note that the patient was performedusing anticoagulation with intravenous heparin and therapeutic ECT wasconfirmed during the procedure.RECOMMENDATIONS: 1. Continue aspirin and Plavix therapy for a minimum of 6 months after PFO closure device.2. Endocarditis prophylaxis after PFO closure for 6 months.3. The patient will be admitted to the hospital for overnight observation and will undergo EKG, chest x-ray, and echocardiography the next morning.4. Follow up in 1 month in Cardiology Clinic with echocardiography.Sarah ochoa Signed by:Romina Robertson M.D. 02/05/2017 11:31 P Romina Robertson M.D.Date Dict: 01/18/2017/11:23 Sonal/Romina Robertson M.D.Date Trans: 01/19/2017 08:33 A/Arabella_JN:[id number] c: CARMEL [address] [address] Normal The [facility] CREATININE BLOODon 7 Creatinine 1.05 mg/dL Normal 0.60-1.20 [facility] Comment on above: Performed By: #### 2 5656 ####[address] eGFR (black) mL/min/{1.73_m2} Normal >60 [facility] Comment on above: Performed By: #### 2 5656 ####[address] eGFR (non-black) 52 ml/min/1.73sq m Abnormal >60 [facility] Comment on above: Performed By: #### 2 5656 ####[address] CTA HEART-CORONARY/ ARTERY B YPASS GRAFT WITH 3DPPon 12-30-2016 CTA HEART-CORONARY/ ARTERY BYPASS GRAFT WITH 3DPP [facility]Department [facility] B[address] [place], [place] [address] Zainab ent Name: KIKI MOORE : 1945Sex: FAge: Race: WhiteMRN: [id number]. Location: OUTPPatient Status: DVisit #: [id number] Date: 12/30/2016 1:00:00 PMCompleted Date: 12/30/2016 02:44 PMRequesting Provider: ROMINA ROBERTSON V Attending Provider: ROMINA ROBERTSON V Report Copy To: CINDA COORNEL Signs & Symptoms: R/O malignant course of anomalous RCAHistory: Script with patientComments: R/O malignant course of anomalous RCAExam: CTA HEART-CORONARY/ ARTERY BYPASS GRAFT WITH 3DPPAccession #: [id number] ===CTA HEART-CORONARY/ ARTERY BYPASS GRAFT WITH 3DPP 12/30/2016 2:44 PM EDT SIGN AND SYMPTOMS: R/O malignant course of anomalous RCA TECHNOLOGIST COMMENTS: R/O malignant course of anomalous RCA. Pt c/o dizziness and chronic cough. Pt states she had a stroke 04/2016 and they found something wrong with her heart. QUESTIONS PER RADIOLOGIST: R/O malignant course of anomalous RCA PROTOCOL: Axial CT angiography images were obtained with IV contrast. CONTRAST: Contrast: OMNIPAQUE 350 (LOCM), 100 milliliter, Intravenous TECHNIQUE: Multidetector CT angiogram was obtained using prospective ECG gating. Imaging was performed from the level of the clavicles to the level of the hemidiaphragms. In order to provide better evaluation of the anatomy and disease process, advanced off-line 3-D post-processing techniques, including were performed. Appropriate CT dose lowering techniques were utilized. Medication administered in preparation for the examination located in nursing documentation. COMPARISON: Cardiac catheter from December 21, 2016. CORONARY ARTERY ANGIOGRAM FINDINGS: Stenoses are reported as maximum percentage diameter stenosis.Stenosis grading is reported using the following scheme:Normal: no stenosisMild: 1-49% stenosisModerate: 50-70% stenosisSevere: >70% stenosisOccluded Dominance of the coronary artery system: right with medial origin location from the right cusp and normal course. Left Main: The left main is a normal caliber vessel which gives rise to the LAD , ramus and circumflex arteries The left main stenosis of less than 50% with calcified plaque at the origin. Left Anterior Descending Artery: The proximal left anterior descending artery and first diagonal branch stenosis of less than 70% with calcified large atherosclerotic plaque. The mid-distal LAD, D2 and D3 branches stenosis of less than 50% with calcified and noncalcified mild to moderate atherosclerotic plaque. The ramus intermedius branch mild stenosis of less than 50% with mild atherosclerotic plaque. Left Circumflex Artery: The left circumflex artery and its obtuse marginal branches stenosis of less than 50% with mild plaque. Right Coronary Artery: The right coronary artery and acute marginal branches stenosis of less than 70% with calcified atherosclerotic plaque at the origin. The vessel is dominant and terminates as small posterior lateral branch and normal size PDA Cardiac Morphology:The right atrium is normal. The right ventricle is normal. The left atrium is normal. The left ventricle is normal. There are features of . The pericardium is normal and there is no pericardial effusion. The heart is well from the sternum. Cardiac Function: {reported only if retrospective ECG gating has been used}The calculated left ventricular ejection fraction is 78%, the left ventricular end-diastolic volume is 109 ml, and the left ventricular end-systolic volume is 24 ml. EXTRACARDIAC FINDINGS: Other lung findings: Mild centrilobular emphysematous changes are seen bilaterally. Airway: Normal.Pleura: No pleural effusion, thickening, or pneumothorax.Thoracic aorta and great vessels: Normal in diameter.Pulmonary arteries: Normal.Heart and pericardium: Normal.Lymph nodes: No enlarged thoracic lymph nodes.Thoracic spine: Bony spurring suggesting mild thoracic spondylosisChest wall: Normal.Visualized upper abdomen: Normal. Small hiatal hernia is visualized. IMPRESSION: 1. Mild to moderate calcified and noncalcified atherosclerotic plaques in the coronary arteries with mild to moderate stenosis as described above.. Normal course and slightly medial location of the origin of the RCA. However, no malignant courses appreciated2. Normal global and regional wall motion and function of the LV. Ejection fraction is normal as well.3. Small hiatal hernia4. Mild thoracic spondylosis I, Lola Petersen, have reviewed the images and report and concur with these findings. Electronically signed by:Lola Petersen. Transcribed by: [email or web address], User Resident: PATRICA YEBOAHElectronically Signed by: LOLA PETERSEN @ 01/03/2017 12:33 PMI personally read this/these film(s) with this resident Normal The [facility] Comment on above: Order Comment: R/O m alignant course of anomalous RCA Cardiovascular Lab Reporton 12-22-2016 Cardiovascular Lab Report [facility] Patient Name: Kiki Moore MR #: [id number] Physician: Romina Robertson M.D.Department of Service Date: 12/21/2016Medicine Birthdate: 1945Division of Room #: CCCardiologyAdsanta [facility] CardiovascularServicesUniv [facility] [address], [place] [address]Wgxvk Fax Cardiovascular Laboratory ReportINDICATION:Kiki Moore is a 71-year-old lady, known to have history of cryptogenicstroke. She underwent investigation for the cause of the stroke, and shewas found to have a large PFO with whsea-zt-kooy shunting. She is plannedfor a PFO closure. Because of that, she is brought today for a diagnosticcoronary angiography followed by possible PFO closure if the diagnosticcoronary angiography did not show significant coronary disease.PROCEDURE:1. Bilateral selective coronary angiography.2. Aortic root angiography.3. FFR assessment of the LAD.4. Administration of intracoronary nitroglycerin.5. Limited right femoral angiography.METHODS:Proced ure was explained to the patient with risks and benefits. She signedthe informed consent. She was brought to laboratory technology teacher in fasting state. Theright groin area was prepped and draped in usual fashion. Usingmicropuncture technique, the right common femoral artery was accessed and a5-Tristanian x 11 cm sheath was placed. Limited right femoral angiography wasperformed. Bilateral selective coronary angiography was then performed. A5-Tristanian JL4 diagnostic catheter was advanced and used to engage the leftmain coronary ostium. Angiography was performed in multiple views.Catheter was removed.Attempt at engagement of the right coronary artery with a 5-Tristanian JR4 shanon 4-Tristanian 3DRC as well as a 5-Tristanian AR modified and 5-Tristanian MH0lxgyevkbxt catheters failed. The catheters were removed. A 5-Frenchstraight pigtail catheter was advanced into the ascending aorta. Aorticroot angiography was performed in the left anterior oblique view using apower injection of contrast.The access sheath was upsized to a 6-Tristanian x 11 cm sheath. Multipleadditional catheters were used to attempt engagement of the right coronaryartery. Those were 6-Tristanian AR 2 diagnostic catheter, 6-Tristanian AR 2guiding catheter, 6-Tristanian AL 2 diagnostic catheter, and a 6-Tristanian MPA 2diagnostic catheter. Eventually, we were able to engage the right coronaryostium with a 6-Tristanian Sagar radial diagnostic catheter. Angiography wasperformed in multiple views. The catheter was removed.Heparin was administered intravenously and therapeutic ACT confirmed duringthe procedure. A 6-Tristanian XB 3.5 guiding catheter was advanced and used toengage the left main coronary ostium. A EventRegist FFR wire was advanced andequalization of pressures made outside of the guiding catheter. The wirewas advanced into the distal LAD. Intracoronary nitroglycerin 100 mcg wasadministered followed by administration of intravenous adenosine at 140mcg/kg per minute over 3 minutes. FFR assessment of the LAD was 0.91indicating nonhemodynamically significant stenosis in the proximal LAD.The wire was retracted. Final angiography was performed. Catheter wasremoved. The procedure was concluded. The patient was transferred to thecardiovascular recovery area. The access sheaths were removed and mannualcompression applied for hemostasis when the ACT is subtherapeutic. Shewill be observed for 6 hours after that, and then discharged to home.Total fluoro time 30.47 minutes.Total air kerma 1.438 Gy.Total contrast volume was 180 mL.HEMODYNAMICS:AO 108/58, mean 79.CORONARY ANGIOGRAPHY:This is a right dominant circulation.Left main arises from the left coronary cusp. It is a long vessel withmild disease at the ostium, but no obstructive lesions.Left anterior descending artery. This is a large vessel, it has a 40%proximal stenosis. FFR assessment was 0.91 indicating nonhemodynamicallysignific ant stenosis. The rest of the LAD is free of disease.Circumflex vessel. This is a large nondominant vessel. It gives rise to deysi large 1st obtuse marginal branch. Both the circumflex and obtusemarginal branches are free of disease.Right coronary artery. This is a large and dominant vessel. It has ananomalous origin. It arises from the left coronary cusp and courses to theright with an apparent anterior course. The right coronary artery has milddisease at the ostium with no disease elsewhere.AORTIC ROOT ANGIOGRAPHY:This showed a dilated aortic root and ascending aorta. The ascending aortameasured about 4 cm in its largest diameter. There was no evidence ofaortic insufficiency. This was performed to look for the origin of theright coronary artery, which appeared to come from the left coronary cusp.LIMITED RIGHT FEMORAL ANGIOGRAPHY:This showed access to be in the right common femoral artery with noobstructive lesions noted in the femoral artery or its proximal branches.SUMMARY OF THE FINDINGS:1. Coronary artery disease with 40% proximal LAD stenosis that is nonhemodynamically significant by FFR measurement (between 0.91).2. Mild disease at the ostium of the right coronary artery and the ostium of the left main.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 Mildly dilated ascending aorta measuring 4.0 cm in maximal diameter.RECOMMENDATIONS:1 . Given anomalous origin of the right coronary artery with a possible malignant course, the patient will undergo a CT angiogram of the heart to investigate the presence of a malignant course of the right coronary artery.2. If the patient has a malignant course of the right coronary artery, then she will be referred for cardiac surgical opinion for surgical correction of this anomaly. At that time, the PFO can be closed surgically.3. If there is no malignant course of the right coronary artery, then the patient will be rescheduled for PFO closure at a later date.Electronically Signed by:Romina Robertson M.D. 12/24/2016 08:01 A Romina Robertson M.D.Date Dict: 12/21/2016/09:56 A/Romina Robertson M.D.Date Trans: 12/22/2016 06:07 A/Arabella_JN:[id number] c: CARMEL Aldridge [address] [address] Normal The [facility] Vital Signs Date Time Vital Sign Value Performing Clinician Facility 02-11-2023 13:52-0400 Body temperature 98.4 [degF] PHYSICIAN NO [facility] 02-11-2023 13:52-0400 Diastolic blood pressure 74 mm[Hg] PHYSICIAN NO [facility] 02-11-2023 13:52-0400 Heart rate 67 /min PHYSICIAN NO [facility] 02-11-2023 13:52-0400 Respiratory rate 18 /min PHYSICIAN NO [facility] 02-11-2023 13:52-0400 SaO2% (BldA) [Mass fraction] 97 % PHYSICIAN NO [facility] 02-11-2023 13:52-0400 Systolic blood pressure 118 mm[Hg] PHYSICIAN NO [facility] 02-07-2023 11:47-0400 Body height 154.94 cm PHYSICIAN NO [facility] 02-05-2023 06:09-0400 Body weight 79.2 kg PHYSICIAN NO [facility] 12-23-2022 10:16-0400 Body height 154.9 cm Pacc 2 Work Phone: [facility] 12-23-2022 10:16-0400 Body temperature 98.1 [degF] Pacc 2 Work Phone: [facility] 12-23-2022 10:16-0400 Body weight 75.75 kg Pacc 2 Work Phone: [facility] 12-23-2022 10:16-0400 Diastolic blood pressure 53 mm[Hg] Pacc 2 Work Phone: [facility] 12-23-2022 10:16-0400 Heart rate 58 /min Pacc 2 Work Phone: [facility] 12-23-2022 10:16-0400 Respiratory rate 16 /min Pacc 2 Work Phone: [facility] 12-23-2022 10:16-0400 SaO2% (BldA) [Mass fraction] 99 % Pacc 2 Work Phone: [facility] 12-23-2022 10:16-0400 Systolic blood pressure 119 mm[Hg] Pacc 2 Work Phone: [facility] 05-18-2022 11:00-0500 Diastolic blood pressure 80 mm[Hg] Eliazar OLIVER [facility] 05-18-2022 11:00-0500 Hourly Rounding Eliazar OLIVER [facility] 05-18-2022 11:00-0500 Mean blood pressure 102 mm[Hg] Eliazar MELODY [facility] 05-18-2022 11:00-0500 Promise to Return Eliazar MELODY [facility] 05-18-2022 11:00-0500 Systolic blood pressure 145 mm[Hg] Eliazar MELODY [facility] 05-18-2022 10:25-0500 Hourly Rounding Eliazar MELODY [facility] 05-18-2022 10:25-0500 Promise to Return Eliazar MELODY [facility] 05-18-2022 09:28-0500 Hourly Rounding Eliazar MELODY [facility] 05-18-2022 09:28-0500 Promise to Return Eliazar MELODY [facility] 05-18-2022 09:25-0500 Diastolic blood pressure 85 mm[Hg] Eliazar MELODY [facility] 05-18-2022 09:25-0500 Systolic blood pressure 160 mm[Hg] Eliazar MELODY [facility] 05-18-2022 08:39-0500 Heart rate 86 /min Eliazar MELODY [facility] 05-18-2022 08:39-0500 Respiratory rate 17 /min Eliazar MELODY [facility] 05-18-2022 08:23-0500 Heart rate 81 /min Eliazar MELODY [facility] 05-18-2022 08:23-0500 SaO2% (BldA) [Mass fraction] 96 % Eliazar OLIVER [facility] 05-18-2022 08:23-0500 Respiratory rate 16 /min Eliazar GEORGESLIN [facility] 05-18-2022 08:22-0500 Body temperature 98.24 [degF] Eliazar GEORGESLIN [facility] 05-18-2022 08:22-0500 Diastolic blood pressure 85 mm[Hg] Eliazar LUZLIN [facility] 05-18-2022 08:22-0500 Mean blood pressure 110 mm[Hg] Eliazar GEORGESLIN [facility] 05-18-2022 08:22-0500 Systolic blood pressure 160 mm[Hg] Eliazar LUZLIN [facility] 05-18-2022 08:00-0500 Blood Pressure Location Eliazarpaco OLIVER [facility] 05-18-2022 00:00-0500 Body temperature 98.42 [degF] Eliazar OLIVER [facility] 05-18-2022 00:00-0500 Heart rate 79 /min Eliazar GEORGESLIN [facility] 05-18-2022 00:00-0500 Mean blood pressure 84 mm[Hg] Eliazar GEORGESLIN [facility] 05-18-2022 00:00-0500 Respiratory rate 18 /min Eliazar GEORGESLIN [facility] 05-18-2022 00:00-0500 SaO2% (BldA) [Mass fraction] 98 % Eliazar GEORGESLIN [facility] 05-17-2022 21:09-0500 SaO2% (BldA) [Mass fraction] 96 % Eliazarpaco GEORGESLIN [facility] 05-17-2022 21:08-0500 Body temperature 98.24 [degF] Eliazarpaco GEORGESLIN [facility] 05-17-2022 21:08-0500 Mean blood pressure 89 mm[Hg] Eliazar MELODY [facility] 05-17-2022 15:56-0500 Body temperature 98.24 [degF] Eliazarpaco GEORGESLIN [facility] 05-17-2022 15:56-0500 Mean blood pressure 77 mm[Hg] Eliazarpaco GEORGESLIN [facility] 05-17-2022 10:24-0500 Heart rate 70 /min Eliazarpaco GEORGESLIN [facility] 05-17-2022 00:00-0500 Body temperature 97.88 [degF] Eliazarpaco GEORGESLIN [facility] 05-16-2022 19:00-0500 Body temperature 98.6 [degF] Eliazarpaco GEORGESLIN [facility] 05-16-2022 11:00-0500 Blood Pressure Location Eliazarpaco GEORGESLIN [facility] 05-16-2022 11:00-0500 Mean blood pressure 101 mm[Hg] Eliazarpaco GEORGESLIN [facility] 05-15-2022 16:00-0500 Blood Pressure Location Eliazarpaco GEORGESLIN [facility] 05-15-2022 00:05-0500 Heart rate 77 /min Eliazar MELODY [facility] 05-14-2022 23:45-0500 Heart rate 80 /min Eliazar MELODY [facility] 02-05-2022 01:29-0400 Diastolic blood pressure 77 mm[Hg] Kaylinn Dokken [facility] 02-05-2022 01:29-0400 Heart rate 75 /min Kaylinn Dokken [facility] 02-05-2022 01:29-0400 Respiratory rate 16 /min Kaylinn Dokken [facility] 02-05-2022 01:29-0400 SaO2% (BldA) [Mass fraction] 96 % Kaylinn Dokken [facility] 02-05-2022 01:29-0400 Systolic blood pressure 124 mm[Hg] Kaylinn Dokken [facility] 02-04-2022 23:36-0400 Body temperature 99.5 [degF] Kaylinn Dokken [facility] 02-04-2022 23:36-0400 Diastolic blood pressure 82 mm[Hg] Kaylinn Dokken [facility] 02-04-2022 23:36-0400 Heart rate 89 /min Kaylinn Dokken [facility] 02-04-2022 23:36-0400 Respiratory rate 16 /min Kaylinn Dokken [facility] 02-04-2022 23:36-0400 SaO2% (BldA) [Mass fraction] 96 % Kaylinn Dokken [facility] 02-04-2022 23:36-0400 Systolic blood pressure 146 mm[Hg] Kaylinn Dokken [facility] 09-21-2021 14:00-0400 Mean blood pressure 77 mm[Hg] Raffy Keo [facility] 09-21-2021 14:00-0400 SaO2% (BldA) [Mass fraction] 96 % Raffy Keo [facility] 09-21-2021 14:00-0400 Systolic blood pressure 110 mm[Hg] Raffy Keo [facility] 09-21-2021 13:45-0400 Diastolic blood pressure 65 mm[Hg] Raffy Keo [facility] 09-21-2021 13:45-0400 Heart rate 68 /min Raffy Keo [facility] 09-21-2021 13:45-0400 Mean blood pressure 83 mm[Hg] Raffy Keo [facility] 09-21-2021 13:45-0400 Respiratory rate 16 /min Raffy Keo [facility] 09-21-2021 13:45-0400 SaO2% (BldA) [Mass fraction] 97 % Raffy Keo [facility] 09-21-2021 13:45-0400 Systolic blood pressure 119 mm[Hg] Raffy Keo [facility] 09-21-2021 13:33-0400 Body temperature 98.42 [degF] Raffy Keo [facility] 09-21-2021 13:33-0400 Diastolic blood pressure 61 mm[Hg] Raffy Keo [facility] 09-21-2021 13:33-0400 Heart rate 72 /min Raffy Keo [facility] 09-21-2021 13:33-0400 Respiratory rate 18 /min Raffy Keo [facility] 09-21-2021 13:33-0400 SaO2% (BldA) [Mass fraction] 98 % Raffy Crowley [facility] 09-21-2021 13:33-0400 Systolic blood pressure 135 mm[Hg] Raffy Crowley [facility] 09-21-2021 13:05-0400 Diastolic blood pressure 50 mm[Hg] Julianne Brar [facility] 09-21-2021 13:05-0400 Mean blood pressure 64 mm[Hg] Julianne Aguilarmetz [facility] 09-21-2021 13:05-0400 Systolic blood pressure 92 mm[Hg] Julianne Aguilarmetz [facility] 09-21-2021 12:55-0400 Blood Pressure Location Julianneelfego AguilarMaykel [facility] 09-21-2021 12:55-0400 Body temperature 97.7 [degF] Julianne Aguilarmetz [facility] 09-21-2021 12:55-0400 Diastolic blood pressure 58 mm[Hg] Julianneelfego AguilarMaykel [facility] 09-21-2021 12:55-0400 Heart rate 67 /min Julianneelfego AguilarMaykel [facility] 09-21-2021 12:55-0400 SaO2% (BldA) [Mass fraction] 97 % Julianne Brar [facility] 09-21-2021 12:55-0400 Systolic blood pressure 89 mm[Hg] Julianne Brar [facility] 09-03-2021 09:50-0400 Diastolic blood pressure 63 mm[Hg] Piedra SALAM [facility] 09-03-2021 09:50-0400 Heart rate 68 /min Piedra SALAM [facility] 09-03-2021 09:50-0400 Respiratory rate 21 /min Piedra SALAM [facility] 09-03-2021 09:50-0400 SaO2% (BldA) [Mass fraction] 97 % Piedra SALAM [facility] 09-03-2021 09:50-0400 Systolic blood pressure 116 mm[Hg] Piedra SALAM [facility] 09-03-2021 09:35-0400 Diastolic blood pressure 51 mm[Hg] Piedra SALAM [facility] 09-03-2021 09:35-0400 Heart rate 70 /min Piedra SALAM [facility] 09-03-2021 09:35-0400 Respiratory rate 18 /min Piedra SALAM [facility] 09-03-2021 09:35-0400 SaO2% (BldA) [Mass fraction] 97 % Piedra SALAM [facility] 09-03-2021 09:35-0400 Systolic blood pressure 99 mm[Hg] Piedra SALAM [facility] 09-03-2021 09:30-0400 Diastolic blood pressure 51 mm[Hg] Piedra SALAM [facility] 09-03-2021 09:30-0400 Heart rate 68 /min Piedra SALAM [facility] 09-03-2021 09:30-0400 Respiratory rate 16 /min Piedra SALAM [facility] 09-03-2021 09:30-0400 SaO2% (BldA) [Mass fraction] 94 % Piedra SALAM [facility] 09-03-2021 09:30-0400 Systolic blood pressure 99 mm[Hg] Piedra SALAM [facility] 09-03-2021 09:24-0400 Body temperature 97.34 [degF] Piedra SALAM [facility] 09-03-2021 09:20-0400 Respiratory rate 15 /min Piedra SALAM [facility] 09-03-2021 09:15-0400 Respiratory rate 14 /min Piedra SALAM [facility] 09-03-2021 09:10-0400 Respiratory rate 18 /min Piedra SALAM [facility] 09-03-2021 07:57-0400 Blood Pressure Location Piedra SALAM [facility] 09-03-2021 07:57-0400 Body temperature 97.7 [degF] Piedra SALAM [facility] Encounters Encounter Date Encounter Type Care Provider Facility Start: 07-07-2023 ambulatory LEONEL Parnell ty:[facility] Start: 07-05-2023 Tessa ramos DO Work Phone: [facility] Start: 07-05-2023 Bamboo flowsheet Aury ramos DO Work Phone: [facility] Start: 07-05-2023 End: 07-05-2023 ambulatory AURY BASS Not Available Start: 04-17-2023 End: 04-17-2023 ambulatory SHAN BOX Facility:[facility] Start: 04-17-2023 End: 04-17-2023 Patient encounter procedure Shan Box MD Work Phone: Orthopaedics Comment on above: S/P total knee repla cement, left (Primary Dx) Start: 04-05-2023 End: 04-05-2023 ambulatory Leonel Aguirre Facility:[facility] Start: 04-05-2023 End: 04-05-2023 ambulatory PHYSICIAN NO [facility] Work Phone: Start: 04-05-2023 End: 04-05-2023 Patient encounter procedure PHYSICIAN NO [facility] [address] Work Phone: Start: 03-06-2023 End: 03-06-2023 ambulatory CINDA CORONEL Facility:[facility] Start: 03-06-2023 End: 03-06-2023 Patient encounter procedure Shan Box MD Work Phone: Orthopaedics Comment on above: S/P total knee repla cement, left (01/17/2023) (Primary Dx) Start: 02-10-2023 End: 02-10-2023 ambulatory CINDA CORONEL Facility:[facility] Start: 01-31-2023 End: 02-11-2023 Evaluation and management of inpatient Syd Muir Facility:[facility] Start: 01-31-2023 End: 02-11-2023 Evaluation and management of inpatient PHYSICIAN NO [facility] Work Phone: Start: 01-17-2023 End: 01-19-2023 ambulatory SHAN BOX Facility:[facility] Start: 12-30-2022 End: 12-31-2022 ambulatory CINDA CORONEL Facility:[facility] Start: 12-30-2022 Encounter for other preprocedural examination CINDA CORONEL [facility] Start: 12-23-2022 Encounter for other preprocedural examination CINDA CORONEL [facility] Start: 12-23-2022 End: 12-24-2022 ambulatory CINDA CORONEL Facility:[facility] Start: 12-23-2022 End: 12-23-2022 Admission to establishment [place] [facility] Work Phone: [facility] Start: 12-23-2022 End: 12-23-2022 ambulatory Pac [place] 2 Work Phone: Pre Anesthesia Comment on above: Pre-op evaluation (P rimary Dx); Cerebrovascular accident (CVA), unspecified mechanism (HCC); Deep vein thrombosis (DVT) of popliteal vein of left lower extremity, unspecified chronicity (HCC); Rheumatoid arthritis, involving unspecified site, unspecified whether rheumatoid factor present (HCC); Obesity without serious comorbidity, unspecified classification, unspecified obesity type; S/P patent foramen ovale closure; Hypertension, unspecified type; Pulmonary hypertension (HCC) Start: 12-23-2022 End: 12-23-2022 Preprocedural examination done [place] 2 Work Phone: [facility] Work Phone: Start: 12-14-2022 End: 12-14-2022 ambulatory SHAN BOX Facility:[facility] Start: 11-21-2022 End: 11-22-2022 Orders Only Shan Box MD Work Phone: Orthopaedics Comment on above: Primary osteoarthrit is of left knee (Primary Dx) Start: 11-21-2022 End: 11-21-2022 Patient encounter procedure COOKIE QUIROZ [facility] Start: 11-15-2022 End: 11-16-2022 ambulatory Cinda CORONEL Facility:[facility] Start: 11-15-2022 End: 11-15-2022 Patient encounter procedure Cinda CORONEL [facility] Start: 11-09-2022 End: 11-09-2022 ambulatory RICCO EHSAN [facility] Start: 10-26-2022 End: 10-26-2022 ambulatory Sanna Alma Delia RT(R) Radiology Comment on above: Radiology XR Start: 10-26-2022 End: 10-26-2022 Patient encounter procedure Sanna Alma Delia RT(R) [facility] [place] Comment on above: MRSA (methicillin re sistant Staphylococcus aureus) (Primary Dx); Primary osteoarthritis of left knee; Pre-op testing; Status post right knee replacement; History of right hip replacement; Status post bilateral knee replacements; Rheumatoid arthritis with negative rheumatoid factor, involving unspecified site (HCC) Start: 10-26-2022 End: 10-26-2022 Patient encounter status Shan Box MD Work Phone: Orthopaedics Start: 06-28-2022 End: 06-28-2022 Patient encounter procedure COOKIE QUIROZ [facility] Start: 06-02-2022 End: 06-02-2022 Patient encounter procedure Cinda CORONEL [facility] Start: 05-14-2022 End: 05-18-2022 Evaluation and management of inpatient Eliazar LUZLIN [facility] Start: 04-27-2022 End: 04-27-2022 ambulatory Leonel Aguirre Facility:[facility] Start: 04-27-2022 End: 04-27-2022 ambulatory MD Leonel Aguirre Work Phone: [facility] Work Phone: Start: 04-27-2022 End: 04-27-2022 Patient encounter procedure MD Leonel Aguirre Work Phone: [facility] [address] Start: 04-22-2022 End: 04-22-2022 Patient encounter procedure ALEXANDER TREVIÑO [facility] Start: 04-12-2022 End: 04-12-2022 Patient encounter procedure LEONEL AGUIRRE [facility] Start: 02-04-2022 End: 02-05-2022 Emergency department patient visit Ludingabe Linn [facility] Start: 01-28-2022 End: 10-23-2022 Recurring LEONEL AGUIRRE [facility] Start: 12-23-2021 End: 12-23-2021 Patient encounter procedure MD Leonel Aguirre Work Phone: [facility] [address] Start: 10-28-2021 End: 10-28-2021 Patient encounter procedure Connor Benítez [facility] Start: 09-21-2021 End: 09-21-2021 Emergency department patient visit Raffy Crowley [facility] Start: 09-21-2021 End: 09-21-2021 Patient encounter procedure Julianne Brar [facility] Start: 09-03-2021 End: 09-03-2021 Patient encounter procedure Tadeo CARBAJAL [facility] Start: 04-15-2021 ambulatory RICCO MOSER Facility:[facility] Start: 03-31-2021 End: 04-01-[address] BROOKS MADIHAKarla Facility:[facility] Start: 09-05-2017 End: 09-06-2017 Patient encounter DEFAULT PHYSICIAN Facility:[facility] Start: 02-14-2017 End: 02-15-2017 Patient encounter DEFAULT PHYSICIAN Facility:[facility] Start: 01-18-2017 End: 01-19-2017 Patient encounter PROVIDER UNKNOWN Facility:[facility] Start: 12-30-2016 End: 12-31-2016 Patient encounter PROVIDER UNKNOWN Facility:[facility] Start: 12-21-2016 End: 12-22-2016 Patient encounter PROVIDER UNKNOWN Facility:[facility] Start: 03-04-2015 End: 03-04-2015 Telephone encounter Juliana Pruitt (Rn) (Hist) Justin BERG [facility] Comment on above: Surgical Followup Procedures Date Procedure Procedure Detail Performing Clinician Start: 02-08-2023 Duplex scan of lower limb veins PHYSICIA N NO FAMILY Start: 02-06-2023 Screening for occult blood in feces PHYSICIAN NO FAMILY Start: 02-01-2023 Antibody screen Syd Muir Comment on above: Order Comment: Transfuse now? Y Number o f units to transfuse now? 2 Result Comment: PERF ORMED BY: [facility] [id number] [place] [address] PATHOLOGIST ENRICHMENT DIRECTOR KWADWO PULIDO M.D. Start: 02-01-2023 Radiologic examination of knee PHYSICIAN NO FAMILY Start: 01-31-2023 Duplex scan of lower limb veins PHYSICIA N NO FAMILY Start: 12-23-2022 Antibody screen CINDA CORONEL Comment on above: Order Comment: Specimen Type: BLOOD SPEC IMENOrdering Facility: [facility] Address: [address] [place] [address] Performed By: #### T [id number] ####CC MAIN BLOOD BANKCLIA [id number] [place] [address] [place] Start: 10-26-2022 Iadna s aureus amplified probe tq Bob Box MD Work Phone: Start: 12-23-2021 Plain X-ray of bilateral hands MD Leonel Aguirre Work Phone: Start: 12-23-2021 Plain X-ray of bilateral wrists MD Aly Aguirre Work Phone: Start: 09-03-2021 Colonoscopy Tadeo CARBAJAL Comment on above: diverticulosis, moderate IH Start: 09-08-2020 Repair of incisional hernia Tadeo CARBAJAL Start: 05-17-2019 Repair of umbilical hernia Tadeo CARBAJAL Comment on above: UMBILICAL HERNIA REPAIR ADULT Start: 01-22-2019 Cholecystectomy Tadeo CARBAJAL Start: 11-14-2018 Amputation of toe [place] CARBAJAL Comment on above: Left second toe amputation and left thir d digit proximal interphalangeal J joint arthrodesis with 0.045 K-wire Start: 02-06-2016 Esophagogastroduodenoscopy Tadeo CARBAJAL Start: 03-16-2010 left RTC repair Tadeo CARBAJAL Start: 10-06-2006 H/O: artificial joint Knee joint replacement by other means Juliana Anderson RN Arthroplasty of knee Tadeo [place] ALAM section Tadeo CARBAJAL Dilation and curettage Tadeo CARBAJAL Herniated Disc Surgery Tadeo CARBAJAL History of operative procedure on knee Status post bilateral knee replacements Shan Box MD Work Phone: left hip replacement Piedra S ALAM lumbar discectomy 4 Piedra SA BARGER Comment on above: 20 years ago, and 21 years ago Prosthetic arthroplasty of the hip Tadeo RIOSAM Right Hip Revision Tadeo RIOS AM Plan of Treatment Date Care Activity Detail Author Start: 01-18-2026 Diabetes Screening Diabetes Screenin g [facility] Start: 12-24-2023 BP CONTROLLED (<130/80) BP CONTROLLE D (<130/80) [facility] Start: 02-11-2023 [facility] Start: 01-31-[address] [facility] Start: 01-31-2023 Referral to clinical rounder and backer [facility] Start: 01-31-2023 [facility] Start: 01-20-2023 Influenza vaccination C [facility] Start: 12-20-2022 End: 02-19-2023 Bacteria identified in Urine by Culture URINE CULTURE Microbiology Routine Pre-op testing Expected: 12/20/2022 (Approximate), Expires: 02/19/2023 [facility] Work Phone: Comment on above: Expected: 12/20/2022 (Approximate), Expires: 02/19/2023 Start: 12-20-2022 End: 02-19-2023 TYPE AND SCREEN,30 DAY TYPE AND SCREEN,30 DAY Blood Bank Routine Pre-op testing Expected: 12/20/2022 (Approximate), Expires: 02/19/2023 [facility] Work Phone: Comment on above: Expected: 12/20/2022 (Approximate), Expires: 02/19/2023 Start: 10-27-2022 End: 12-27-2022 Basic metabolic 2000 panel - Serum or Plasma BASIC METABOLIC PNL Lab Routine Pre-op testing Expected: 10/27/2022, Expires: 12/27/2022 [facility] Work Phone: Comment on above: Expected: 10/27/2022 , Expires: 12/27/2022 Start: 10-27-2022 End: 12-27-2022 CBC W Auto Differential panel - Blood CBC + DIFF Lab Routine Pre-op testing Expected: 10/27/2022, Expires: 12/27/2022 [facility] Work Phone: Comment on above: Expected: 10/27/2022 , Expires: 12/27/2022 Start: 10-27-2022 End: 12-27-2022 Hemoglobin A1c in Blood HGB A1C Lab Routine Pre-op testing Expected: 10/27/2022, Expires: 12/27/2022 [facility] Work Phone: Comment on above: Expected: 10/27/2022 , Expires: 12/27/2022 Start: 10-27-2022 End: 12-27-2022 Urinalysis complete panel - Urine URINALYSIS, WITH MICROSCOPIC Lab Routine Pre-op testing Expected: 10/27/2022, Expires: 12/27/2022 [facility] Work Phone: Comment on above: Expected: 10/27/2022 , Expires: 12/27/2022 Start: 05-22-2022 ADVANCE DIRECTIVE DISCUSSION ADVANCE DIRECTIVE DISCUSSION [facility] Start: 05-22-2022 DEPRESSION ASSESSMENT DEPRESSION ASS ESSMENT [facility] Start: 04-27-2022 [facility] Start: 02-05-2021 COVID-19 VACCINE (3 - Mixed Product series) COVID-19 VACCINE (3 - Mixed Product series) [facility] Start: 01-20-2021 Influenza vaccination INFLUENZ A (Season Ended) [facility] Start: 01-08-2021 Covid-19 Vaccine (3 - Mixed Product risk series) Covid-19 Vaccine (3 - Mixed Product risk series) [facility] Start: 02-27-2018 DIABETES SCREEN DIABETES SCREEN [facility] Start: 02-27-2016 PNEUMOCOCCAL: 65+ (2 - PCV) PNEUMOCOCCAL: 65+ (2 - PCV) [facility] Start: 2011 ADVANCE DIRECTIVE DISCUSSION ADVANCE DIRECTIVE DISCUSSION [facility] Start: 2011 BONE DENSITY BONE DENSITY [facility] Start: 2011 Bone Density Screening Bone Density Screening [facility] Start: 2006 RSV Vaccine (1 - 1-d ose 60+ series) RSV Vaccine (1 - 1-dose 60+ series) [facility] Start: 01-02-1996 Screening for malign ant neoplasm of colon [facility] Start: 01-02-1996 SHINGRIX VACCINE (1 of 2) SHINGRIX VACCINE (1 of 2) [facility] Start: 1991 LIPID SCREEN LIPID SCREEN [facility] Start: 1986 Mammography MAMMOGRAM [facility] Start: 1965 SHINGRIX VACCINE (1 of 2) SHINGRIX VACCINE (1 of 2) [facility] Start: 1965 Urine microalbumin profile [facility] Start: 01-02-1964 ANNUAL PCP TEAM READING INTERVENTIONIST LILLIAN DISEASE VISIT ANNUAL PCP TEAM CHRONIC DISEASE VISIT [facility] Start: 01-02-1964 HEPATITIS C SCREENING HEPATITIS C SC REENING [facility] Start: 1958 Adult depression screening assessment DEPRESSION SCREENING [facility] Start: 1946 COVID-19 VACCINE (#1) COVID-19 VACCI NE (#1) [facility] Start: 1946 Medicare Annual Wellness (AWV) Medicare Annual Wellness (AWV) [facility] Alkaline phosphatase - bone isoenzyme measurement [facility] Work Phone: Alkaline phosphatase [Enzymatic activity/volume] in Serum or Plasma [facility] Work Phone: Alkaline phosphatase isoenz panel - Serum or Plasma [facility] Work Phone: Intestinal alkaline phosphatase measurement [facility] Work Phone: Patient Education Total Knee Rep lacement (DC) [facility] Work Phone: Patient referral [facility] Work Phone: End: 05-05-2024 XR KNEE POST OP 3V AP/LAT/MERCHANT LEFT XR KNEE POST OP 3V AP/LAT/MERCHANT LEFT Radiology Routine S/P total knee replacement, left 1 Occurrences starting 04/06/2023 until 05/05/2024 [facility] Work Phone: Comment on above: 1 Occurrences starti ng 04/06/2023 until 05/05/2024 XR KNEE POST OP 3V AP/LAT/MERCHANT LEFT XR KNEE POST OP 3V AP/LAT/MERCHANT LEFT Radiology Routine S/P total knee replacement, left 04/17/2023 8:50 AM EST [facility] Work Phone: [facility] Immunizations Immunization Date Immunization Notes Care Provider April francisco 03-31-2022 influenza (HD-IIV4) vaccine, age 65+ yr, high dose, quadrivalent, PF (FLUZONE HIGH-DOSE) Pac 2 Work Phone: [facility] 03-31-2022 pneumococcal (PCV20) vaccine, 20 valent (PREVNAR 20) Pacc 2 Work Phone: [facility] 03-31-2022 influenza virus vacc ine, unspecified formulation Shan Box MD Work Phone: [facility] 03-08-2021 influenza (HD-IIV4) vaccine, age 65+ yr, high dose, quadrivalent, PF (FLUZONE HIGH-DOSE) Pacc 2 Work Phone: [facility] 12-11-2020 COVID-19 vaccine, unspecified formulation Pacc 2 Work Phone: [facility] 11-13-2020 COVID-19 vaccine, unspecified formulation Pacc 2 Work Phone: [facility] 02-24-2020 influenza (aIIV4) vaccine, age 65+ yr, quadrivalent, PF (FLUAD QUAD) Pacc 2 Work Phone: [facility] 07-12-2019 zoster vaccine recombinant Pacc 2 Work Phone: [facility] 04-26-2019 pneumococcal conjuga te vaccine, 13 valent Tadeo CARBAJAL [facility] 04-10-2019 zoster vaccine recombinant Pacc 2 Work Phone: [facility] 03-08-2019 influenza, high dose seasonal, preservative-free Pacc 2 Work Phone: [facility] 02-23-2018 influenza, high dose seasonal, preservative-free Pacc 2 Work Phone: [facility] 02-27-2017 influenza, injectabl e, quadrivalent, preservative free Pacc 2 Work Phone: [facility] 02-22-2017 influenza, high dose seasonal, preservative-free Pacc 2 Work Phone: [facility] 05-09-2016 influenza, high dose seasonal, preservative-free Pacc 2 Work Phone: [facility] 03-18-2016 influenza, high dose seasonal, preservative-free Pacc 2 Work Phone: [facility] 03-07-2016 pneumococcal conjuga te vaccine, 13 valent Piedra SALAM [facility] 07-06-2015 pneumococcal polysaccharide vaccine, 23 valent Pacc 2 Work Phone: [facility] 02-26-2015 influenza, high dose seasonal, preservative-free Juliana Anderson RN [facility] 02-26-2015 pneumococcal polysaccharide vaccine, 23 valent Juliana Justin RN [facility] 01-07-2015 pneumococcal conjuga te vaccine, 7 valent Pacc 2 Work Phone: [facility] 03-04-2014 influenza, seasonal, injectable Juliana Anderson RN [facility] 03-31-2005 pneumococcal polysaccharide vaccine, 23 valent Piedra SALAM [facility] Payers Date Payer Category Payer Medicare [id number] 2020 Medicare ANTHEM MEDICARE ADVANTAGE ANTHEM MEDICARE ADVANTAGE [id number] 2020-Present [address] [place] [address] [id number] 2020 Unknown 2010 Medicare [id number] 1959 Self-pay 1959 Unknown [id number] 1945 Unknown [id number] 1945 Unknown [id number] 1945 Unknown [id number] 9 1945 Unknown [id number] 1945 Unknown [id number] 1945 Unknown [id number] Unknown [id number] Unknown [id number] Unknown [id number] Unknown [id number] Social History Date Type Detail Facility Start: 02-02-2015 End: 10-31-2022 Tobacco smoking status IDIS Never smoker [facility] Start: 02-02-2015 End: 10-31-2022 Tobacco use and exposure Never used [facility] Start: 02-02-2015 End: 04-17-2023 Alcohol intake Current non-drinker of alcohol (finding) [facility] Start: 1945 Sex Assigned At Not on file C [facility] Tobacco smoking status Never [facility] Start: 12-23-2022 End: 01-12-2023 Sex Assigned At Female [facility] Comment on above: pt denies Start: 1945 Sex Assigned At Female F [facility] Tobacco smoking status No Smokin g Status Entered [facility] Start: 12-23-2022 End: 01-12-2023 History of Social function [facility] (I/We) worried wheth er (my/our) food would run out before (I/we) got money to buy more. Never true [facility] In the past 12 month s, was there a time when you were not able to pay the mortgage or rent on time? No [facility] Start: 01-12-2023 Alcohol intake Ex-drinker (finding) [facility] Medical Equipment Procedure Code Equipment Code Equipment Origin al Text Equipment Identifier Dates Jjf-Os-E-Kind Implant - [id number] Start: 02-24-2015 Comment on above: Description: G7 ACET ABULAR LINER Fqd-Op-E-Kind Implant - [id number] Start: 02-24-2015 Comment on above: Description: acetabu lar shell 3 hole Nsw-Zs-D-Kind Implant - [id number] Start: 02-24-2015 Comment on above: Description: HEALIX ADVANCED SUTURE ANCHOR Lmq-Kr-I-Kind Implant - [id number] Start: 02-24-2015 Comment on above: Description: Healix advance BR 3 suture anchor w permacord Liner Actb Drlc 10d 50mm 28mm - [id number] Start: 06-25-2014 Comment on above: Description: duraloc marathon acetabular liner Ring Actb 50mm Drlc Dyn Hip - [id number] Start: 06-25-2014 Comment on above: Description: dynamic locking ring/duraloc Head Fem +8.5mm 12/14 28mm Hip - [id number] Start: 06-25-2014 Comment on above: Description: articul karon femoral head Stem Fem 142mm Type 1 Complt - [id number] Start: 02-24-2015 Comment on above: Description: coated stem high offset Head Fem -3mm 36 mm Hip No Skrt - [id number] Start: 02-24-2015 Comment on above: Description: modular head 36mm -3 neck {[id number] FDA Start: 05-17-2019 FDA Start: 07-11-2016 FDA Start: 01-18-2017 FDA Start: 07-11-2016 FDA Start: 01-18-2017 FDA Start: 07-11-2016 FDA Start: 01-18-2017 FDA Start: 07-11-2016 FDA Start: 01-18-2017 Unknown Unknown 07/11/16 Non Biological Chest FDA Start: 07-11-2016 Comment on above: MR Conditional. Cond itions scanned into patient's chart. Unknown Unknown 01/18/17 Non Biological Chest FDA Start: 01-18-2017 Comment on above: MR conditional. Cond itions scanned into chart.REF # [id number] ID #[id number] Unknown Unknown 07/11/16 Non Biological Chest FDA Start: 07-11-2016 Comment on above: MR Conditional. Cond itions scanned into patient's chart. Unknown Unknown 01/18/17 Non Biological Chest FDA Start: 01-18-2017 Comment on above: MR conditional. Cond itions scanned into chart.REF # [id number] ID #[id number] Unknown Unknown 07/11/16 Non Biological Chest FDA Start: 07-11-2016 Comment on above: MR Conditional. Cond itions scanned into patient's chart. Unknown Unknown 01/18/17 Non Biological Chest FDA Start: 01-18-2017 Comment on above: MR conditional. Cond itions scanned into chart.REF # [id number] ID #[id number] Unknown Unknown 07/11/16 Non Biological Chest FDA Start: 07-11-2016 Comment on above: MR Conditional. Cond itions scanned into patient's chart. Unknown Unknown 01/18/17 Non Biological Chest FDA Start: 01-18-2017 Comment on above: MR conditional. Cond itions scanned into chart.REF # [id number] ID #[id number] Unknown Unknown 07/11/16 Non Biological Chest FDA Start: 07-11-2016 Comment on above: MR Conditional. Cond itions scanned into patient's chart. Unknown Unknown 01/18/17 Non Biological Chest FDA Start: 01-18-2017 Comment on above: MR conditional. Cond itions scanned into chart.REF # [id number] ID #[id number] Unknown Unknown 07/11/16 Non Biological Chest FDA Start: 07-11-2016 Comment on above: MR Conditional. Cond itions scanned into patient's chart. Unknown Unknown 01/18/17 Non Biological Chest FDA Start: 01-18-2017 Comment on above: MR conditional. Cond itions scanned into chart.REF # [id number] ID #[id number] Unknown Unknown 07/11/16 Non Biological Chest FDA Start: 07-11-2016 Comment on above: MR Conditional. Cond itions scanned into patient's chart. Unknown Unknown 01/18/17 Non Biological Chest FDA Start: 01-18-2017 Comment on above: MR conditional. Cond itions scanned into chart.REF # [id number] ID #[id number] Unknown Unknown 07/11/16 Non Biological Chest FDA Start: 07-11-2016 Comment on above: MR Conditional. Cond itions scanned into patient's chart. Unknown Unknown 01/18/17 Non Biological Chest FDA Start: 01-18-2017 Comment on above: MR conditional. Cond itions scanned into chart.REF # [id number] ID #[id number] Unknown Unknown 07/11/16 Non Biological Chest FDA Start: 07-11-2016 Comment on above: MR Conditional. Cond itions scanned into patient's chart. Unknown Unknown 01/18/17 Non Biological Chest FDA Start: 01-18-2017 Comment on above: MR conditional. Cond itions scanned into chart.REF # [id number] ID #[id number] Unknown Unknown 07/11/16 Non Biological Chest FDA Start: 07-11-2016 Comment on above: MR Conditional. Cond itions scanned into patient's chart. Unknown Unknown 01/18/17 Non Biological Chest FDA Start: 01-18-2017 Comment on above: MR conditional. Cond itions scanned into chart.REF # [id number] ID #[id number] Cement Simplex Bone High Viscosity - [id number] Start: 01-17-2023 Insert Triathlon 3 9mm Tibial Total Stabilizer Plus Sterile Knee - [id number] Start: 01-17-2023 Component Triathlon 3 Femoral Cemented Posterior Stabilize Knee Left - [id number] Start: 01-17-2023 Baseplate Triathlon 3 [place] Cocr Tibial Total Stabilize Cemented Knee - [id number] Start: 01-17-2023 Goals Date Patient Goal Desired Activity /State Functional Status Date Assessment Result Facility 02-11-2023 Functional status Patient is Pro gressing Toward [facility] Work Phone: 01-31-2023 Functional status Disability Sta tus Patient Not at [facility] Work Phone: 05-15-2022 Functional Status No [facility] 05-14-2022 Functional Status [facility] 02-04-2022 Functional Status N/A [facility] Mental Status Date Assessment Result Facility 02-11-2023 Cognitive function Cognitive Sta tus Patient at [facility] Work Phone: Clinical Notes 03-26-2015 to 04-17-2023 Note Date & Type Note Facility 04-17-2023 Note HNO ID: [id number] Author: Shan Box MD Service: Orthopaedic Surgery Author Type: Physician Type: Progress Notes Filed: 04/18/2023 10:13 AM Note Text: [facility] [address] [place] [address] CLINIC NOTE Department of Orthopaedics - [place] Shan Box II, M.D. NAME: KIKI MOORE [facility] NO.: [id number] DATE OF SERVICE: 04/17/2023 Recheck of left knee. Left TKR, 01/17/2023 - 3 months. Right TKR, 08/19/1997 - 25 plus years. Revision of right TKR, 09/12/2006. The patient is doing well with her left knee. Has no significant effusion. Motion is 0 to 125 degrees. X-rays shows excellent alignment of the cemented total knee on the left. X-rays of the right knee show a stemmed total knee replacement revision, which seems to have stabilized. Has had movement of the femoral stem, but this again looks stabilized. Dictated By: Shan Box II, M.D. Date Dictated: 04/17/2023 Date Typed: [facility] 04/17/2023 JOB# [id number] [facility] 04-17-2023 Note HNO ID: [id number] Author: Karla Vargas RT(R) Service: ? Author Type: Technologist Type: Progress Notes Filed: 04/17/2023 8:51 AM Note Text: Radiology Service Progress Note PATIENT NAME: Kiki Moore DATE OF SERVICE: April 17, 2023 TIME: 8:50 AM PATIENT IDENTITY VERIFICATION COMPLETED USING TWO (2) IDENTIFIERS: Name and Date of confirmed by patient verbally. FALL SCREENING: Has the patient had 2 falls in the last year or 1 fall with injury or currently using an Ambulatory Assistive Device (Walker, Cane, Wheelchair, Crutches, etc.)? Yes, Patient High Risk for Falls What interventions were put in place to prevent falls during this visit? Instructed Patient to Call for Help if Needed, Offered Assistance with Transfers/Clothing, Instructed Patient to Remain Seated (Not on Exam Table) Until Exam, and Increased Observations by Caregivers PATIENT GENDER DATA: Female. status: : No status: NO. PATIENT RELEVANT IMPLANT DATA REVIEWED: Not Applicable RADIOLOGY DEPARTMENT: General X-ray: Exam(s) Completed: Lower Extremity X-Ray(s): Knee, AP / Lat / Merchant Left and Wt. Bearing PERIPHERAL IV DATA: Not applicable SIGNED BY: RT Jarad(R) April 17, 2023 8:50 AM [facility] 03-06-2023 Note HNO ID: [id number] Author: Shan Box MD Service: Orthopaedic Surgery Author Type: Physician Type: Progress Notes Filed: 03/07/2023 11:14 AM Note Text: [facility] [address] [place] [address] CLINIC NOTE Department of Orthopaedics - Donnell Box II, M.D. NAME: KIKI MOORE CLINIC NO.: [id number] DATE OF SERVICE: 03/06/2023 CHIEF COMPLAINT: Recheck of left knee. Left TKR, 01/17/2023. Calf is soft and nontender. Incision has healed, but there are 2 areas of large scabs over the incision that have not fallen off yet. No evidence of infection. ROM is 0 to 115 to 120 degrees. Having no pain in her knee. Continues to use and feels more secure with her walker. History of a stroke in the past, so she has problems with balance. Only stairs she has at home are 5 stairs to get into the house out of her garage. The current railings are too wide for her to use them, but the family is talking about rebuilding the stairs. See back at 3 months. Dictated By: Shan Box II, M.D. Date Dictated: 03/06/2023 Date Typed: olena 03/06/2023 JOB# [id number] [facility] 02-11-2023 Progress note Note Date/Time February 10, 2023 4:28pm [facility] [address] [place] [address] Hospitalist Progress Note Signed Patient: Kiki Moore MR#: [id number] : 1945 Acct:[id number] Age/Sex: 78 / F Adm Date: 3 Loc: Room: 4X8090-8 Type: ADM IN Attending Dr: Syd Muir MD Copies to: ~ Date of Service: 02/10/2023 Subjective Subjective Narrative: Patient seen and examined on follow-up, resting comfortably in bed. Denies any pain or discomfort. Reports tolerating physical therapy well and is due to discharge home tomorrow. There is no issues or concerns at this time. Exam Physical Exam Vital Signs: Temp Pulse Resp BP Pulse Ox O2 Del Method 98.5 F 70 16 123/73 95 Room Air 02/10/23 06:14 02/10/23 06:14 02/10/23 06:14 02/10/23 06:14 02/10/23 06:14 02/10/23 09:40 Narrative: CONST- alert, in bed, no acute distress CARDIAC- RRR no abnormal heart tones PULM- diminished without wheeze or rhonchi, RA, no accessory muscle use or coughnoted ABD- S/NT, NABS EXTREM- no edema RLE, calves nontender, left knee/lower extremity with 1+ edema SKIN-dressing intact? Objective Lab Results 02/07/23 05:10 02/02/23 05:54 Meds Allergies and Active Meds Allergies celecoxib [From Celebrex] Allergy (Verified 01/31/23 15:04) Hives gabapentin Allergy (Verified 01/31/23 15:04) Weakness rofecoxib [From Vioxx] Allergy (Verified 01/31/23 15:04) Dry Mucus Membranes Active Meds: Active Medications Generic Name Dose Route Start Last Admin Trade Name Freq PRN Reason Stop Dose Admin Acetaminophen 500 mg 01/31/23 14:12 02/10/23 06:17 Acetaminophen 500 Mg Tablet PO 01/31/24 14:11 500 mg Q4H PRN Administration Pain Al Hydrox/Mg Hydrox/Simethicone 30 ml 01/31/23 14:12 Mag Hydrox/Al Hydrox/Simeth 30 Ml Udc PO 01/31/24 14:11 Q4H PRN Indigestion Aspirin 81 mg 02/01/23 09:00 02/10/23 07:49 Aspirin 81 Mg Tab.Chew PO 02/01/24 08:59 81 mg DAILY BERTRAND Administration Atorvastatin Calcium 40 mg 01/31/23 21:00 02/09/23 20:15 Atorvastatin 40 Mg Tablet PO 01/31/24 20:59 40 mg QPM BERTRAND Administration Bisacodyl 10 mg 01/31/23 14:12 Bisacodyl 10 Mg Supp.Rect IL 01/31/24 14:11 DAILY PRN Constipation Brimonidine Tartrate 1 drops 02/01/23 09:00 02/10/23 07:50 Brimonidine 0.15% Op Soln 100 Drops/5 Ml Drops EYE-BOTH 02/01/24 08:59 1 drops DAILY BERTRAND Administration Diclofenac Sodium 2 gm 02/08/23 14:00 02/10/23 13:58 Diclofenac Sodium 1% Gel 50 Gm Tube TOPICAL 02/08/24 13:59 Not Given TID BERTRAND Docusate Sodium 283 mg 01/31/23 14:12 Docusate Enema 283 Mg/5 Ml Enema IL 01/31/24 14:11 DAILY PRN Constipation Docusate Sodium 100 mg 02/01/23 21:00 02/10/23 07:49 Docusate 100 Mg Capsule PO 02/01/24 20:59 100 mg BID BERTRAND Administration Ferrous Sulfate 324 mg 02/10/23 09:00 02/10/23 08:09 Ferrous Sulfate 324 Mg Tablet. PO 02/10/24 08:59 324 mg Q48H BERTRAND Administration Folic Acid 1 mg 02/03/23 09:00 02/10/23 08:09 Folic Acid 1 Mg Tablet PO 02/03/24 08:59 1 mg FR@0900 BERTRAND Administration Furosemide 20 mg 02/01/23 08:00 09/14/23 09:01 Furosemide 20 Mg Tablet PO 02/01/24 07:59 20 mg DAILY.8A BERTRAND Administration Hydroxychloroquine Sulfate 200 mg 01/31/23 21:00 02/10/23 07:49 Hydroxychloroquine Sulfate 200 Mg Tablet PO 01/31/24 20:59 200 mg BID BERTRAND Administration Lactulose 30 gm 01/31/23 14:12 02/01/23 09:21 Lactulose 20 Gm/30 Ml Udc PO 01/31/24 14:11 30 gm DAILY PRN Administration Constipation Latanoprost 1 drops 01/31/23 21:00 02/09/23 20:16 Latanoprost 0.005% Op Soln 50 Drops/2.5 Ml Bottle EYE-BOTH 01/31/24 20:59 1drops QPM BERTRAND Administration Lisinopril 10 mg 02/04/23 09:00 02/10/23 07:49 Lisinopril 10 Mg Tablet PO 02/04/24 08:59 10 mg DAILY BERTRAND Administration Ondansetron HCl 4 mg 01/31/23 14:52 02/02/23 08:59 Ondansetron Odt 4 Mg Tab.Rapdis PO 01/31/24 14:51 4 mg Q4HR PRN Administration Nausea And Vomiting Oxycodone HCl 5 mg 02/06/23 12:23 02/10/23 07:49 Oxycodone Ir 5 Mg Tablet PO 5 mg Q4HR PRN Administration Pain Scale 6 - 10 Pantoprazole Sodium 40 mg 02/02/23 10:00 02/10/23 07:49 Pantoprazole 40 Mg Tablet. PO 02/02/24 09:59 40 mg DAILY BERTRAND Administration Prednisone 5 mg 01/31/23 14:50 Prednisone 5 Mg Tablet PO 02/01/24 08:59 DAILY PRN arthritis pain Rivaroxaban 10 mg 02/05/23 09:00 02/10/23 07:49 Rivaroxaban 10 Mg Tablet PO 02/05/24 08:59 10 mg DAILY BERTRAND Administration Sennosides 2 tab 02/01/23 12:00 02/09/23 20:15 Sennosides 8.6 Mg Tablet PO 02/01/24 11:59 2 tab DAILY@12 PRN Administration If no BM in 2 days Sodium Chloride 0 ml 01/31/23 14:12 02/02/23 12:11 Sodium Chloride 0.9 % 10 Ml Syringe IV-PUSH 01/31/24 14:11 10 ml PRN PRN Administration Flush Vitamin D 50 mcg 02/01/23 09:00 02/10/23 07:49 Cholecalciferol 25 Mcg (1,000 Units) Tablet PO 02/01/24 08:59 50 mcg DAILY BERTRAND Administration A&P - Hospitalist Assessment/Plan (1) S/P total knee arthroplasty: (2) Anemia: (3) Hypertension: (4) Hyperlipidemia: (5) Rheumatoid arthritis: (6) Chronic hyponatremia: Plan Knee replacement 01/17/2023 at [facility] Postoperative anemia -Further POC per PMR team for rehabilitative therapy postop, pain control bowel regimen, DVT PPx, surgical wound care -Please address any questions/concerns postoperatively to [facility] orthopedic team -Completed Levaquin on 02/05/2023, continue to monitor wound. Anemia. No clinical evidence of acute or massive GI blood loss ?Hemoglobin is up to 9.1 on 02/07, CBC pending results ?Iron studies consistent with iron deficiency, On iron supplement ?Continue to monitor Chronic conditions 1. HTN, HLD?ASA, atorvastatin, furosemide, lisinopril. Blood pressure controlled 2. Glaucoma?brimonidine, latanoprost 3. RA?hydroxychloroquine, prn prednisone 4. Chronic hyponatremia?review of EMR shows chronic low levels?TSH, serum/urineosmolality, urine sodium, cortisol is normal. Labs for today pending I personally reviewed the relevant history, the carranza elements of the physical exam, and discussed and formulated the plan of care with the nurse practitioner,and I confirm the nurse practitioner's documentation as written. Hussein Hung DO Internal Medicine Hospitalist Documented By: Kiki Michel APRN 02/10/23 1620 Signed By: <Electronically signed by TRAY Michel> 02/10/23 1628 <Electronically signed by Hussein Hung DO> 02/11/23 0714 [facility] Work Phone: 1(970) 513-324809-22-2023 Progress note Author Syd Muir [facility] February 10, 2023 2:47pm Note Date/Time February 10, 2023 2:47pm [facility] [address] [place], [place] [id number] Physiatry(Rehab) Progress Note Signed Patient: Kiki Moore MR#: [id number] : 1945 Acct:[id number] Age/Sex: 78 / F Adm Date: 3 Loc: 5T Room: 2H8452-6 Type: ADM IN Attending Dr: Syd Muir MD Copies to: ~ Date of Service: 02/10/2023 Subjective Subjective Narrative: Ms. Moore is a 78 year old female presenting to acute rehab as a transfer from [facility]. 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 Patient reports a history of multiple previous joint surgeries including hip andknee revisions. Left knee has been bothering her for quite some time. She reports numerous steroid injections and other conservative treatment measures prior to surgery which were not effective. She has not underwent elective left total knee on 01/17/[address] [facility]. Placed on Xarelto for DVT prophylaxis postop. There is limited information available regarding the procedure and postoperative course as the chart is incomplete. Per patient there was no significant complication postoperatively; she was recommended rehabilitation and was admitted to a skilled facility for PT/OT. While at SNF, she developed left knee swelling, pain and incisional drainage and was subsequently placed on p.o. levofloxacin. Unfortunately, patient failed to demonstrate expected functional progress prompting her family to request a transfer to IRF for a more intense rehab therapy. On admission she reports continued left knee pain. The joint is somewhat edematous, erythematous and warm to touch. There was scant amount of serous drainage on the dressing. The incision is well approximated without visible dehiscence. Patient is also complaining of upset stomach and constipation. She does have active bowel sounds in all 4 quadrants and denies nausea, although admits to poor appetite. She did receive a dose of prn laxative this morning. Otherwise, offers no acute complaints or concerns. Cardiopulmonary status within normal limits. No neurological symptoms. Vitals are within normal limits. Patient was notified of recent lab values including low H&H and is agreeable to a blood transfusion. Interval history: Stable Returned from ortho appt, no concerns of infection at this time, agree with D/c home tomorrow Venous duplex no DVT At goals with PT/OT. Chronic conditions stable Review of Systems Review of Systems All other systems reviewed & are negative unless noted below or in HPI Exam Physical Exam Vital Signs: Temp Pulse Resp BP Pulse Ox O2 Del Method 98.5 F 70 16 123/73 95 Room Air 02/10/23 06:14 02/10/23 06:14 02/10/23 06:14 02/10/23 06:14 02/10/23 06:14 02/10/23 09:40 Narrative: General: Awake, alert, oriented x3 HENT: Normal to inspection, normocephalic, atraumatic Eyes: PERRL, normal conjunctiva and sclera Neck: Normal ROM, normal visual inspection. Trachea midline. Cardio: Regular heart rate then rhythm Respiratory: Clear to auscultation bilaterally. Normal respiratory effort. No respiratory distress. GI: Abdomen soft, nontender, nondistended, active bowel sounds x4 quadrants Neuro: CN II-XII intact. Strength 5/5, equal bilaterally Extremities: Left knee edema and erythema. It is tender to touch there is some serous drainage on the dressing. TKA incision is well approximated without signs of dehiscence. Psych: Mood and affect appropriate. Normal speech. Objective Labs 02/07/23 05:10 02/02/23 05:54 Medications and Allergies Allergies and Active Meds: Allergies celecoxib [From Celebrex] Allergy (Verified 01/31/23 15:04) Hives gabapentin Allergy (Verified 01/31/23 15:04) Weakness rofecoxib [From Vioxx] Allergy (Verified 01/31/23 15:04) Dry Mucus Membranes Active Medications Generic Name Dose Route Start Last Admin Trade Name Freq PRN Reason Stop Dose Admin Acetaminophen 500 mg 01/31/23 14:12 02/10/23 06:17 Acetaminophen 500 Mg Tablet PO 01/31/24 14:11 500 mg Q4H PRN Administration Pain Al Hydrox/Mg Hydrox/Simethicone 30 ml 01/31/23 14:12 Mag Hydrox/Al Hydrox/Simeth 30 Ml Udc PO 01/31/24 14:11 Q4H PRN Indigestion Aspirin 81 mg 02/01/23 09:00 02/10/23 07:49 Aspirin 81 Mg Tab.Chew PO 02/01/24 08:59 81 mg DAILY BERTRAND Administration Atorvastatin Calcium 40 mg 01/31/23 21:00 02/09/23 20:15 Atorvastatin 40 Mg Tablet PO 01/31/24 20:59 40 mg QPM BERTRAND Administration Bisacodyl 10 mg 01/31/23 14:12 Bisacodyl 10 Mg Supp.Rect IL 01/31/24 14:11 DAILY PRN Constipation Brimonidine Tartrate 1 drops 02/01/23 09:00 02/10/23 07:50 Brimonidine 0.15% Op Soln 100 Drops/5 Ml Drops EYE-BOTH 02/01/24 08:59 1 drops DAILY BERTRAND Administration Diclofenac Sodium 2 gm 02/08/23 14:00 02/10/23 13:58 Diclofenac Sodium 1% Gel 50 Gm Tube TOPICAL 02/08/24 13:59 Not Given TID BERTRAND Docusate Sodium 283 mg 01/31/23 14:12 Docusate Enema 283 Mg/5 Ml Enema IL 01/31/24 14:11 DAILY PRN Constipation Docusate Sodium 100 mg 02/01/23 21:00 02/10/23 07:49 Docusate 100 Mg Capsule PO 02/01/24 20:59 100 mg BID BERTRAND Administration Ferrous Sulfate 324 mg 02/10/23 09:00 02/10/23 08:09 Ferrous Sulfate 324 Mg Tablet.Dr PO 02/10/24 08:59 324 mg Q48H BERTRAND Administration Folic Acid 1 mg 02/03/23 09:00 02/10/23 08:09 Folic Acid 1 Mg Tablet PO 02/03/24 08:59 1 mg FR@0900 BERTRAND Administration Furosemide 20 mg 02/01/23 08:00 02/02/23 09:01 Furosemide 20 Mg Tablet PO 02/01/24 07:59 20 mg DAILY.8A BERTRAND Administration Hydroxychloroquine Sulfate 200 mg 01/31/23 21:00 02/10/23 07:49 Hydroxychloroquine Sulfate 200 Mg Tablet PO 01/31/24 20:59 200 mg BID BERTRAND Administration Lactulose 30 gm 01/31/23 14:12 02/01/23 09:21 Lactulose 20 Gm/30 Ml Udc PO 01/31/24 14:11 30 gm DAILY PRN Administration Constipation Latanoprost 1 drops 01/31/23 21:00 02/09/23 20:16 Latanoprost 0.005% Op Soln 50 Drops/2.5 Ml Bottle EYE-BOTH 01/31/24 20:59 1drops QPM BERTRAND Administration Lisinopril 10 mg 02/04/23 09:00 02/10/23 07:49 Lisinopril 10 Mg Tablet PO 02/04/24 08:59 10 mg DAILY BERTRAND Administration Ondansetron HCl 4 mg 01/31/23 14:52 02/02/23 08:59 Ondansetron Odt 4 Mg Tab.Rapdis PO 01/31/24 14:51 4 mg Q4HR PRN Administration Nausea And Vomiting Oxycodone HCl 5 mg 02/06/23 12:23 02/10/23 07:49 Oxycodone Ir 5 Mg Tablet PO 5 mg Q4HR PRN Administration Pain Scale 6 - 10 Pantoprazole Sodium 40 mg 02/02/23 10:00 02/10/23 07:49 Pantoprazole 40 Mg Tablet.Dr PO 02/02/24 09:59 40 mg DAILY BERTRAND Administration Prednisone 5 mg 01/31/23 14:50 Prednisone 5 Mg Tablet PO 02/01/24 08:59 DAILY PRN arthritis pain Rivaroxaban 10 mg 02/05/23 09:00 02/10/23 07:49 Rivaroxaban 10 Mg Tablet PO 02/05/24 08:59 10 mg DAILY BERTRAND Administration Sennosides 2 tab 02/01/23 12:00 02/09/23 20:15 Sennosides 8.6 Mg Tablet PO 02/01/24 11:59 2 tab DAILY@12 PRN Administration If no BM in 2 days Sodium Chloride 0 ml 01/31/23 14:12 02/02/23 12:11 Sodium Chloride 0.9 % 10 Ml Syringe IV-PUSH 01/31/24 14:11 10 ml PRN PRN Administration Flush Vitamin D 50 mcg 02/01/23 09:00 02/10/23 07:49 Cholecalciferol 25 Mcg (1,000 Units) Tablet PO 02/01/24 08:59 50 mcg DAILY BERTRAND Administration Assessment/Plan Assessment/Plan (1) Impaired mobility and activities of daily living: Code(s): Z74.09 - Other reduced mobility; Z78.9 - Other specified health status Status: Acute (2) CKD (chronic kidney disease): Code(s): N18.9 - Chronic kidney disease, unspecified Status: Acute (3) S/P total knee arthroplasty: Code(s): Z96.659 - Presence of unspecified artificial knee joint Status: Acute (4) Pulmonary hypertension: Code(s): I27.20 - Pulmonary hypertension, unspecified Status: Acute (5) Anemia: Code(s): D64.9 - Anemia, unspecified Status: Acute (6) Hypertension: Code(s): I10 - Essential (primary) hypertension Status: Acute (7) Rheumatoid arthritis: Code(s): M06.9 - Rheumatoid arthritis, unspecified Status: Acute (8) Chronic back pain: Code(s): M54.9 - Dorsalgia, unspecified; G89.29 - Other chronic pain Status: Acute (9) Postoperative wound infection: Code(s): T81.49XA - Infection following a procedure, other surgical site, initial encounter Status: Acute Plan 78-year-old female with extensive past medical history presenting to acute inpatient rehabilitation unit with functional limitation secondary to left totalknee arthroplasty on 01/17/2023. [facility] but failed to improve functionally and was transferred to . * Venous ultrasound obtained yesterday is negative for DVT or SVT on final read * Check BMP today before discharge, can resume lasix at discharge, will likely help with swelling, BP is stable. * Tentatively, home with family on 02/11/2023 Patient education Pressure ulcer prophylaxis; encourage mobilization, frequent postural changes, pressure-relief techniques DVT prophylaxis: Resume Xarelto.. Encourage deep breathing exercise incentive spirometry. Monitor bladder. Toileting schedule. Continue current bladder management, with scans as needed and CIC if needed. Start bowel care program every day to obtain continence, prevent ileus. Maintain fall precautions Gait and balance retraining Functional training and self-care and home management, including activities of daily living and instrumental activities of daily living Provision of the necessary gait aids and functional adaptive equipment to enhance the patient's a functional buddhist Ensure adequate nutrition and hydration Sleep: No concerns Pain: Continue current regimen Discharge planning: Home in AM. I spent greater than 25 minutes for services, including [id number] encounter with the patient, discussion of the case, plan of care, and exam; and [id number] activities, such as reviewing pertinent industrial methods consultant documentation, recent therapy notes, laboratory and radiology studies, and discussion of case with care team including physician, nursing, employment case manager, and therapists. More than 50 % of time was spent on patient/family counseling or coordination ofcare. Documented By: Syd Muir MD 02/10/231444 Signed By: <Electronically signed by Syd Muir MD> 02/10/23 1447 [facility] Work Phone: 1(148) 379-268709-22-2023 Progress note Author Syd Muir [facility] February 10, 2023 11:17am Note Date/Time February 09, 2023 2:00pm [facility] [address] [place] [address] Physiatry(Rehab) Progress Note Signed Patient: Kiki Moore MR#: [id number] : 1945 Acct:[id number] Age/Sex: 78 / F Adm Date: 3 Loc: Room: [address] [place] [address] Type: ADM IN Attending Dr: Syd Muir MD Copies to: ~ <Sofya Petit APRN - Last Filed: 02/09/23 14:08> Date of Service: 02/09/2023 Subjective <Sofya Petit APRN - Last Filed: 02/09/23 14:08> Subjective Narrative: Ms. Moore is a 78 year old female presenting to acute rehab as a transfer from [facility]. 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 Patient reports a history of multiple previous joint surgeries including hip andknee revisions. Left knee has been bothering her for quite some time. She reports numerous steroid injections and other conservative treatment measures prior to surgery which were not effective. She has not underwent elective left total knee on 01/17/[address] [facility]. Placed on Xarelto for DVT prophylaxis postop. There is limited information available regarding the procedure and postoperative course as the chart is incomplete. Per patient there was no significant complication postoperatively; she was recommended rehabilitation and was admitted to a skilled facility for PT/OT. While at [facility], she developed left knee swelling, pain and incisional drainage and was subsequently placed on p.o. levofloxacin. Unfortunately, patient failed to demonstrate expected functional progress prompting her family to request a transfer to [facility] for a more intense rehab therapy. On admission she reports continued left knee pain. The joint is somewhat edematous, erythematous and warm to touch. There was scant amount of serous drainage on the dressing. The incision is well approximated without visible dehiscence. Patient is also complaining of upset stomach and constipation. She does have active bowel sounds in all 4 quadrants and denies nausea, although admits to poor appetite. She did receive a dose of prn laxative this morning. Otherwise, offers no acute complaints or concerns. Cardiopulmonary status within normal limits. No neurological symptoms. Vitals are within normal limits. Patient was notified of recent lab values including low H&H and is agreeable to a blood transfusion. Interval history: Patient seen and examined in her room. Reports no acute complaints or concerns. Discussed upcoming Ortho appointment tomorrow. She would like to keep it if we can get the transportation arranged. Charge nurse is aware. Leg pain is mild today although there is still some swelling. She is pleased with her therapy progress and feels she made great gains. This morning she was able to ambulate 150 feet with a rolling walker and standby assist. Required SBA for transfers and bed mobility. Chronic conditions stable Review of Systems <Sofya Petit APRN - Last Filed: 02/09/23 14:08> Review of Systems All other systems reviewed & are negative unless noted below or in HPI Exam <Sofya Petit APRN - Last Filed: 02/09/23 14:08> Physical Exam Vital Signs: Temp Pulse Resp BP Pulse Ox O2 Del Method 97.6 F 67 20 149/77 H 95 Room Air 02/09/23 04:04 02/09/23 04:04 02/09/23 04:04 02/09/23 04:04 02/09/23 04:04 02/09/23 07:30 Narrative: General: Awake, alert, oriented x3 HENT: Normal to inspection, normocephalic, atraumatic Eyes: PERRL, normal conjunctiva and sclera Neck: Normal ROM, normal visual inspection. Trachea midline. Cardio: Regular heart rate then rhythm Respiratory: Clear to auscultation bilaterally. Normal respiratory effort. No respiratory distress. GI: Abdomen soft, nontender, nondistended, active bowel sounds x4 quadrants Neuro: CN II-XII intact. Strength 5/5, equal bilaterally Extremities: Left knee edema and erythema. It is tender to touch there is some serous drainage on the dressing. TKA incision is well approximated without signs of dehiscence. Psych: Mood and affect appropriate. Normal speech. Objective <Sofya Petit, TRAY - Last Filed: 02/09/23 14:08> Labs 02/07/23 05:10 02/02/23 05:54 Medications and Allergies Allergies and Active Meds: Allergies celecoxib [From Celebrex] Allergy (Verified 01/31/23 15:04) Hives gabapentin Allergy (Verified 01/31/23 15:04) Weakness rofecoxib [From Vioxx] Allergy (Verified 01/31/23 15:04) Dry Mucus Membranes Active Medications Generic Name Dose Route Start Last Admin Trade Name Freq PRN Reason Stop Dose Admin Acetaminophen 500 mg 01/31/23 14:12 02/09/23 08:35 Acetaminophen 500 Mg Tablet PO 01/31/24 14:11 500 mg Q4H PRN Administration Pain Al Hydrox/Mg Hydrox/Simethicone 30 ml 01/31/23 14:12 Mag Hydrox/Al Hydrox/Simeth 30 Ml Udc PO 01/31/24 14:11 Q4H PRN Indigestion Aspirin 81 mg 02/01/23 09:00 02/09/23 08:33 Aspirin 81 Mg Tab.Chew PO 02/01/24 08:59 81 mg DAILY BERTRAND Administration Atorvastatin Calcium 40 mg 01/31/23 21:00 02/08/23 21:10 Atorvastatin 40 Mg Tablet PO 01/31/24 20:59 40 mg QPM BERTRAND Administration Bisacodyl 10 mg 01/31/23 14:12 Bisacodyl 10 Mg Supp.Rect IL 01/31/24 14:11 DAILY PRN Constipation Brimonidine Tartrate 1 drops 02/01/23 09:00 02/09/23 08:33 Brimonidine 0.15% Op Soln 100 Drops/5 Ml Drops EYE-BOTH 02/01/24 08:59 1 drops DAILY BERTRAND Administration Diclofenac Sodium 2 gm 02/08/23 14:00 02/09/23 08:33 Diclofenac Sodium 1% Gel 50 Gm Tube TOPICAL 02/08/24 13:59 2 gm TID BERTRAND Administration Docusate Sodium 283 mg 01/31/23 14:12 Docusate Enema 283 Mg/5 Ml Enema IL 01/31/24 14:11 DAILY PRN Constipation Docusate Sodium 100 mg 02/01/23 21:00 02/09/23 08:32 Docusate 100 Mg Capsule PO 02/01/24 20:59 100 mg BID BERTRAND Administration Ferrous Sulfate 324 mg 02/10/23 09:00 Ferrous Sulfate 324 Mg Tablet. PO 02/10/24 08:59 Q48H BERTRAND Folic Acid 1 mg 02/03/23 09:00 02/03/23 09:44 Folic Acid 1 Mg Tablet PO 02/03/24 08:59 1 mg FR@0900 BERTRAND Administration Furosemide 20 mg 02/01/23 08:00 02/02/23 09:01 Furosemide 20 Mg Tablet PO 02/01/24 07:59 20 mg DAILY.8A BERTRAND Administration Hydroxychloroquine Sulfate 200 mg 01/31/23 21:00 02/09/23 08:32 Hydroxychloroquine Sulfate 200 Mg Tablet PO 01/31/24 20:59 200 mg BID BERTRAND Administration Lactulose 30 gm 01/31/23 14:12 02/01/23 09:21 Lactulose 20 Gm/30 Ml Udc PO 01/31/24 14:11 30 gm DAILY PRN Administration Constipation Latanoprost 1 drops 01/31/23 21:00 02/08/23 21:13 Latanoprost 0.005% Op Soln 50 Drops/2.5 Ml Bottle EYE-BOTH 01/31/24 20:59 1drops QPM BERTRAND Administration Lisinopril 10 mg 02/04/23 09:00 02/09/23 08:32 Lisinopril 10 Mg Tablet PO 02/04/24 08:59 10 mg DAILY BERTRAND Administration Ondansetron HCl 4 mg 01/31/23 14:52 02/02/23 08:59 Ondansetron Odt 4 Mg Tab.Rapdis PO 01/31/24 14:51 4 mg Q4HR PRN Administration Nausea And Vomiting Oxycodone HCl 5 mg 02/06/23 12:23 02/09/23 04:06 Oxycodone Ir 5 Mg Tablet PO 5 mg Q4HR PRN Administration Pain Scale 6 - 10 Pantoprazole Sodium 40 mg 02/02/23 10:00 02/09/23 08:32 Pantoprazole 40 Mg Tablet. PO 02/02/24 09:59 40 mg DAILY BERTRAND Administration Prednisone 5 mg 01/31/23 14:50 Prednisone 5 Mg Tablet PO 02/01/24 08:59 DAILY PRN arthritis pain Rivaroxaban 10 mg 02/05/23 09:00 02/09/23 08:32 Rivaroxaban 10 Mg Tablet PO 02/05/24 08:59 10 mg DAILY BERTRAND Administration Sennosides 2 tab 02/01/23 12:00 Sennosides 8.6 Mg Tablet PO 02/01/24 11:59 DAILY@12 PRN If no BM in 2 days Sodium Chloride 0 ml 01/31/23 14:12 02/02/23 12:11 Sodium Chloride 0.9 % 10 Ml Syringe IV-PUSH 01/31/24 14:11 10 ml PRN PRN Administration Flush Vitamin D 50 mcg 02/01/23 09:00 02/09/23 08:32 Cholecalciferol 25 Mcg (1,000 Units) Tablet PO 02/01/24 08:59 50 mcg DAILY BERTRAND Administration Assessment/Plan <Sofya Petit, SCIENCES DEAN - Last Filed: 02/09/23 14:08> Assessment/Plan (1) Impaired mobility and activities of daily living: Code(s): Z74.09 - Other reduced mobility; Z78.9 - Other specified health status Status: Acute (2) CKD (chronic kidney disease): Code(s): N18.9 - Chronic kidney disease, unspecified Status: Acute (3) S/P total knee arthroplasty: Code(s): Z96.659 - Presence of unspecified artificial knee joint Status: Acute (4) Pulmonary hypertension: Code(s): I27.20 - Pulmonary hypertension, unspecified Status: Acute (5) Anemia: Code(s): D64.9 - Anemia, unspecified Status: Acute (6) Hypertension: Code(s): I10 - Essential (primary) hypertension Status: Acute (7) Rheumatoid arthritis: Code(s): M06.9 - Rheumatoid arthritis, unspecified Status: Acute (8) Chronic back pain: Code(s): M54.9 - Dorsalgia, unspecified; G89.29 - Other chronic pain Status: Acute (9) Postoperative wound infection: Code(s): T81.49XA - Infection following a procedure, other surgical site, initial encounter Status: Acute Plan 78-year-old female with extensive past medical history presenting to acute inpatient rehabilitation unit with functional limitation secondary to left totalknee arthroplasty on 01/17/2023. [facility] but failed to improve functionally and was transferred to . * Venous ultrasound obtained yesterday is negative for DVT or SVT. Preliminary read however demonstrates heterogeneous area within the left popliteal fossa measuring 3.7 x 1.3 x 2.2 cm. Send results with patient to orthopedic surgeon for tomorrow's appointment. * Tentatively, home with family on 02/11/2023 Patient education Pressure ulcer prophylaxis; encourage mobilization, frequent postural changes, pressure-relief techniques DVT prophylaxis: Resume Xarelto.. Encourage deep breathing exercise incentive spirometry. Monitor bladder. Toileting schedule. Continue current bladder management, with scans as needed and CIC if needed. Start bowel care program every day to obtain continence, prevent ileus. Maintain fall precautions Gait and balance retraining Functional training and self-care and home management, including activities of daily living and instrumental activities of daily living Provision of the necessary gait aids and functional adaptive equipment to enhance the patient's a functional buddhist Ensure adequate nutrition and hydration Sleep: No concerns Pain: Continue current regimen Discharge planning: Hopefully home this weekend, pending FI. I spent greater than 15 minutes for services, including [id number] encounter with the patient, discussion of the case, plan of care, and exam; and zqratii-[id number] activities, such as reviewing pertinent industrial methods consultant documentation, recent therapy notes, laboratory and radiology studies, and discussion of case with care team including physician, nursing, employment case manager, and therapists. More than 50 % of time was spent on patient/family counseling or coordination ofcare. <Syd Muir MD - Last Filed: 02/10/23 11:17> Assessment/Plan (1) Impaired mobility and activities of daily living: (2) CKD (chronic kidney disease): (3) S/P total knee arthroplasty: (4) Pulmonary hypertension: (5) Anemia: (6) Hypertension: (7) Rheumatoid arthritis: (8) Chronic back pain: (9) Postoperative wound infection: Plan: I reviewed the history and the relevant portions of the chart, including currentorders, allied health and industrial methods consultant notes, labs/imaging and plan of care as above. Documented By: Sofya Petit APRN 02/09/23 1 356 Signed By: <Electronically signed by TRAY Petit> 02/09/23 1408 <Electronically signed by Syd Muir MD> 02/10/23 1113 [facility] Work Phone: 1(400) 201-557509-22-2023 NoteHNO ID: [id number] Author: Judit Jarrell PA-C Service: ? Author Type: Physician Lpc Type: Progress Notes Filed: 02/14/2023 4:10 PM Note Text: Ortho Knee Follow Up Note Narrative Referring Provider: SELF PCP: MAINE Arias PA-C IMPRESSION/PLAN: 78 year old s/p Left Total Knee Replacement completed on 01/17/2023. Recent Surgeries this specialty 01/17/2023 (3w, 3d) ARTHROPLASTY REPLACE JOINT TOTAL KNEE AIDA (Left) Shan Box MD - Posted 02/24/2015 (7yr) ARTHROPLASTY REPLACE JOINT TOTAL HIP (Left) Syd Sutton Jr., MD - Posted 01/13/2015 (8yr) FLUOROSCOPIC PLACEMENT NEEDLE FOR ASPIRATION; INJECT HIP LEFT (Left; Left) Syd Sutton Jr., MD - Posted 06/25/2014 (8yr) REVISION JOINT TOTAL HIP BOTH COMPONENTS (Right) Syd Sutton Jr., MD - Posted PAIN EVALUATION 02/10/2023 1035 Pain Level: 7 Pain Location: Knee-Left Description: Aching;Sore Duration Amount of Time: 3 Duration Units: Weeks Frequency: Intermittent Intervention/Comfort measure: Reposition;Relaxation;Positioning;Medication;Cold IMPRESSION: Excellent early outcome At normal post-operative stage of recovery. PLAN: No new treatment indicated: Routine follow-up and Continue physical therapy. Continue current conservative treatment. Planning to discharge home tomorrow from the rehab facility. Discussed the importance of walking regularly for exercise to build her stamina. Patient Reassurance: Normal post-operative course discussed with patient. Progress appears to be with the normal speed of recovery. Patient reassured and supported. All questions answered. 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 Oa (Osteoarthritis) Glaucoma Obesity, Class II, BMI 38.47 Rheumatoid arthritis Postoperative Anemia Due to Acute Blood Loss Thoracic Or Lumbosacral Neuritis Or Radiculitis, Unspecified Lumbosacral Spondylosis Without Myelopathy History of Spinal Surgery Obesity Snoring Back Pain Ra (Rheumatoid Arthritis) ([facility]) Arthritis of Left Hip Spondylolisthesis of Lumbar Region 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 Stroke ([facility]) Dvt of Popliteal Vein ([facility]) S/P Patent Foramen Ovale Closure Hypertension Pulmonary Hypertension ([facility]) Primary Osteoarthritis of Left Knee Obesity, Class I, Bmi 30-34.9 Status Post Total Left Knee Replacement Hyponatremia S/P Total Knee Arthroplasty, Left Status post op: BMI: There is no height or weight on file to calculate BMI. Post-operative recovery was complicated by uneventful/none. Readmission(s) since surgery (90 days post)? No ED Visits AND Hospitalizations - Last 180 days 01/17/23 Shan Box MD, AV5W Acute post-operative pain, Admission (Discharged) Patient rates their condition as improving. Does the patient still experience pain? Yes, intermittent pain that can be aching and sore, up to a 7/10. Post Op discharge patient location: at a rehab facility. Functional Assessment is as follows: remains in rehabilitation facility. Functional difficulties: Interferes with sleep, Prolonged standing, and Arising from chair. Pain Medication: Narcotic and Non-narcotic Current Opioids Analgesic Opioid Agonists Start End oxyCODONE IR (ROXICODONE) 5 mg immediate release tablet 01/19/2023 -- Sig: Take 0.5 - 1 tablets by mouth every 4-6 hours as needed for pain. Class: Med Update Earliest Fill Date: 01/19/2023 Currently Ambulating with: Patient arrives on gurney from rehab facility. Physical Therapy Data 02/24/2015 02/27/2015 Therapist that will oversee plan of care katerine Shook, PT EXAM: POST OP KNEE Left Post-Operative Knee Ambulates with a: Ambulates at the rehab facility with her walker SKIN: Appropriate postop appearance, No evidence of erythema, warmth, discharge or drainage, and Incision intact. Range of motion is lacking a few degrees secondary to tight hamstrings degrees in extension and 90 degrees of flexion. Extension La degrees Pain with ROM:No There is Mild effusion. Mal-alignment: No Tender to the palpation of mild global tenderness Neurovascular Status: Sensation Intact, Moves foot and ankle up AND down, 2+ posterial tibial , and negative homans sign Stability:Anterior/Posterior- Yes, stable and Varus/ (more content not included)...[facility]09-22-2023 NoteHNO ID: [id number] Author: Madeline Reese RT(R) Service: ? Author Type: Technologist Type: Progress Notes Filed: 02/10/2023 10:31 AM Note Text: Radiology Service Progress Note PATIENT NAME: Kiki Moore DATE OF SERVICE: February 10, 2023 TIME: 10:29 AM PATIENT IDENTITY VERIFICATION COMPLETED USING TWO (2) IDENTIFIERS: Name and Date of confirmed by patient verbally. FALL SCREENING: Has the patient had 2 falls in the last year or 1 fall with injury or currently using an Ambulatory Assistive Device (Walker, Cane, Wheelchair, Crutches, etc.)? Yes, Patient High Risk for Falls What interventions were put in place to prevent falls during this visit? Yellow Falls Risk Wristband Applied, Instructed Patient to Call for Help if Needed, Offered Assistance with Transfers/Clothing, Instructed Patient to Remain Seated (Not on Exam Table) Until Exam, and Increased Observations by Caregivers PATIENT GENDER DATA: Female. status: : No status: N/A PATIENT RELEVANT IMPLANT DATA REVIEWED: Not Applicable RADIOLOGY DEPARTMENT: General X-ray: Exam(s) Completed: Lower Extremity X-Ray(s): Knee, AP / Lat / Merchant Left PERIPHERAL IV DATA: Not applicable SIGNED BY: RT Margy(R) February 10, 2023 10:29 [facility]09-20-2023 Hospital Discharge instructionsAmbulatory Orders* Initiate Home Health Time Frame: 02/08/23, Location: Determined By Patient Additional Instructions -Code status: Full code. -Activity: Weight bearing as tolerated. No driving until cleared by physician, may ride in car. -Diet: Regular diet. -Wound care to left knee: May leave open to air as long as there is no drainage present. May shower, but no soaking/submerging, or scrubbing incision until fully healed, or told otherwise by Surgeon. -Turn and re-position yourself every 2 hours to prevent skin breakdown. Your Home Health agency is [facility] ( ). They will contact you 24-48 hours after discharge to schedule a day/time to meet with you at your home to establish care. You have been given prescriptions for new and/or needed medications. These prescriptions are for a one-time fill only, with no re-fills. For further re-fills going forward, you will need to address with your PCP at your follow up appointment, or by calling your PCP s office prior to the prescriptions running out. NOTE: please call within 24 hours if you need to cancel or change any follow up appointments. Arrive early to all follow up appointments, bring current medication list, photo ID and any insurance card(s) to all future follow ups (listed below). Please remember to wear a mask to all appointments. If you develop any symptoms (cough, fever/chills, shortness of breath, sore throat, nausea/vomiting, etc.) please contact your provider's office to inform them prior to your appointment.[facility] Work Phone: 1(775) 325-214809-20-2023 Progress note Author Syd Muir [facility] February 08, 2023 11:44am Note Date/Time February 08, 2023 11:44am [facility] [address] [place] [address] Physiatry(Rehab) Progress Note Signed Patient: Kiki Moore MR#: [id number] : 1945 Acct:[id number] Age/Sex: 78 / F Adm Date: 3 Loc: Room: [address] [place] [address] Type: ADM IN Attending Dr: Syd Muir MD Copies to: ~ Date of Service: 02/08/2023 Subjective Subjective Narrative: Ms. Moore is a 78 year old female presenting to acute rehab as a transfer from [facility]. 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 Patient reports a history of multiple previous joint surgeries including hip andknee revisions. Left knee has been bothering her for quite some time. She reports numerous steroid injections and other conservative treatment measures prior to surgery which were not effective. She has not underwent elective left total knee on 01/17/[address] [facility]. Placed on Xarelto for DVT prophylaxis postop. There is limited information available regarding the procedure and postoperative course as the chart is incomplete. Per patient there was no significant complication postoperatively; she was recommended rehabilitation and was admitted to a skilled facility for PT/OT. While at SNF, she developed left knee swelling, pain and incisional drainage and was subsequently placed on p.o. levofloxacin. Unfortunately, patient failed to demonstrate expected functional progress prompting her family to request a transfer to IRF for a more intense rehab therapy. On admission she reports continued left knee pain. The joint is somewhat edematous, erythematous and warm to touch. There was scant amount of serous drainage on the dressing. The incision is well approximated without visible dehiscence. Patient is also complaining of upset stomach and constipation. She does have active bowel sounds in all 4 quadrants and denies nausea, although admits to poor appetite. She did receive a dose of prn laxative this morning. Otherwise, offers no acute complaints or concerns. Cardiopulmonary status within normal limits. No neurological symptoms. Vitals are within normal limits. Patient was notified of recent lab values including low H&H and is agreeable to a blood transfusion. Interval history: FI today, daughter present at bedside Notes some increased left leg and left wrist pain Otherwise doing reasonably well. Chronic conditions stable Review of Systems Review of Systems All other systems reviewed & are negative unless noted below or in HPI Exam Physical Exam Vital Signs: Temp Pulse Resp BP Pulse Ox O2 Del Method 97.9 F 64 20 130/78 97 Room Air 02/08/23 05:38 02/08/23 05:38 02/08/23 05:38 02/08/23 08:15 02/08/23 05:38 02/08/23 09:27 Narrative: General: Awake, alert, oriented x3 HENT: Normal to inspection, normocephalic, atraumatic Eyes: PERRL, normal conjunctiva and sclera Neck: Normal ROM, normal visual inspection. Trachea midline. Cardio: Regular heart rate then rhythm Respiratory: Clear to auscultation bilaterally. Normal respiratory effort. No respiratory distress. GI: Abdomen soft, nontender, nondistended, active bowel sounds x4 quadrants Neuro: CN II-XII intact. Strength 5/5, equal bilaterally Extremities: Left knee edema and erythema. It is tender to touch there is some serous drainage on the dressing. TKA incision is well approximated without signs of dehiscence. Psych: Mood and affect appropriate. Normal speech. Objective Labs 02/07/23 05:10 02/02/23 05:54 Medications and Allergies Allergies and Active Meds: Allergies celecoxib [From Celebrex] Allergy (Verified 01/31/23 15:04) Hives gabapentin Allergy (Verified 01/31/23 15:04) Weakness rofecoxib [From Vioxx] Allergy (Verified 01/31/23 15:04) Dry Mucus Membranes Active Medications Generic Name Dose Route Start Last Admin Trade Name Freq PRN Reason Stop Dose Admin Acetaminophen 500 mg 01/31/23 14:12 02/08/23 01:45 Acetaminophen 500 Mg Tablet PO 01/31/24 14:11 500 mg Q4H PRN Administration Pain Al Hydrox/Mg Hydrox/Simethicone 30 ml 01/31/23 14:12 Mag Hydrox/Al Hydrox/Simeth 30 Ml Udc PO 01/31/24 14:11 Q4H PRN Indigestion Aspirin 81 mg 02/01/23 09:00 02/08/23 08:13 Aspirin 81 Mg Tab.Chew PO 02/01/24 08:59 81 mg DAILY BERTRAND Administration Atorvastatin Calcium 40 mg 01/31/23 21:00 02/07/23 20:48 Atorvastatin 40 Mg Tablet PO 01/31/24 20:59 40 mg QPM BERTRAND Administration Bisacodyl 10 mg 01/31/23 14:12 Bisacodyl 10 Mg Supp.Rect IL 01/31/24 14:11 DAILY PRN Constipation Brimonidine Tartrate 1 drops 02/01/23 09:00 02/08/23 08:14 Brimonidine 0.15% Op Soln 100 Drops/5 Ml Drops EYE-BOTH 02/01/24 08:59 1 drops DAILY BERTRAND Administration Docusate Sodium 283 mg 01/31/23 14:12 Docusate Enema 283 Mg/5 Ml Enema IL 01/31/24 14:11 DAILY PRN Constipation Docusate Sodium 100 mg 02/01/23 21:00 02/08/23 08:13 Docusate 100 Mg Capsule PO 02/01/24 20:59 100 mg BID BERTRAND Administration Ferrous Sulfate 324 mg 02/10/23 09:00 Ferrous Sulfate 324 Mg Tablet.Dr PO 02/10/24 08:59 Q48H BERTRAND Folic Acid 1 mg 02/03/23 09:00 02/03/23 09:44 Folic Acid 1 Mg Tablet PO 02/03/24 08:59 1 mg FR@0900 BERTRAND Administration Furosemide 20 mg 02/01/23 08:00 02/02/23 09:01 Furosemide 20 Mg Tablet PO 02/01/24 07:59 20 mg DAILY.8A BERTRAND Administration Hydroxychloroquine Sulfate 200 mg 01/31/23 21:00 02/08/23 08:13 Hydroxychloroquine Sulfate 200 Mg Tablet PO 01/31/24 20:59 200 mg BID BERTRAND Administration Lactulose 30 gm 01/31/23 14:12 02/01/23 09:21 Lactulose 20 Gm/30 Ml Udc PO 01/31/24 14:11 30 gm DAILY PRN Administration Constipation Latanoprost 1 drops 01/31/23 21:00 02/07/23 20:49 Latanoprost 0.005% Op Soln 50 Drops/2.5 Ml Bottle EYE-BOTH 01/31/24 20:59 1drops QPM BERTRAND Administration Lisinopril 10 mg 02/04/23 09:00 02/08/23 08:13 Lisinopril 10 Mg Tablet PO 02/04/24 08:59 10 mg DAILY BERTRAND Administration Ondansetron HCl 4 mg 01/31/23 14:52 02/02/23 08:59 Ondansetron Odt 4 Mg Tab.Rapdis PO 01/31/24 14:51 4 mg Q4HR PRN Administration Nausea And Vomiting Oxycodone HCl 5 mg 02/06/23 12:23 02/08/23 11:40 Oxycodone Ir 5 Mg Tablet PO 5 mg Q4HR PRN Administration Pain Scale 6 - 10 Pantoprazole Sodium 40 mg 02/02/23 10:00 02/08/23 08:13 Pantoprazole 40 Mg Tablet. PO 02/02/24 09:59 40 mg DAILY BERTRAND Administration Prednisone 5 mg 01/31/23 14:50 Prednisone 5 Mg Tablet PO 02/01/24 08:59 DAILY PRN arthritis pain Rivaroxaban 10 mg 02/05/23 09:00 02/08/23 08:13 Rivaroxaban 10 Mg Tablet PO 02/05/24 08:59 10 mg DAILY BERTRAND Administration Sennosides 2 tab 02/01/23 12:00 Sennosides 8.6 Mg Tablet PO 02/01/24 11:59 DAILY@12 PRN If no BM in 2 days Sodium Chloride 0 ml 01/31/23 14:12 02/02/23 12:11 Sodium Chloride 0.9 % 10 Ml Syringe IV-PUSH 01/31/24 14:11 10 ml PRN PRN Administration Flush Vitamin D 50 mcg 02/01/23 09:00 02/08/23 08:14 Cholecalciferol 25 Mcg (1,000 Units) Tablet PO 02/01/24 08:59 50 mcg DAILY BERTRAND Administration Assessment/Plan Assessment/Plan (1) Impaired mobility and activities of daily living: Code(s): Z74.09 - Other reduced mobility; Z78.9 - Other specified health status Status: Acute (2) CKD (chronic kidney disease): Code(s): N18.9 - Chronic kidney disease, unspecified Status: Acute (3) S/P total knee arthroplasty: Code(s): Z96.659 - Presence of unspecified artificial knee joint Status: Acute (4) Pulmonary hypertension: Code(s): I27.20 - Pulmonary hypertension, unspecified Status: Acute (5) Anemia: Code(s): D64.9 - Anemia, unspecified Status: Acute (6) Hypertension: Code(s): I10 - Essential (primary) hypertension Status: Acute (7) Rheumatoid arthritis: Code(s): M06.9 - Rheumatoid arthritis, unspecified Status: Acute (8) Chronic back pain: Code(s): M54.9 - Dorsalgia, unspecified; G89.29 - Other chronic pain Status: Acute (9) Postoperative wound infection: Code(s): T81.49XA - Infection following a procedure, other surgical site, initial encounter Status: Acute Plan 78-year-old female with extensive past medical history presenting to acute inpatient rehabilitation unit with functional limitation secondary to left totalknee arthroplasty on 01/17/2023. [facility] but failed to improve functionally and was transferred to us. * Check venous duplex, increased pain and swelling * Topical modalities to left wrist IV infiltation site. * Ambulatory 75' and able to do some stairs, encourage more independence in room * Ortho appt 02/10 at [facility] Patient education Pressure ulcer prophylaxis; encourage mobilization, frequent postural changes, pressure-relief techniques DVT prophylaxis: Resume Xarelto.. Encourage deep breathing exercise incentive spirometry. Monitor bladder. Toileting schedule. Continue current bladder management, with scans as needed and CIC if needed. Start bowel care program every day to obtain continence, prevent ileus. Maintain fall precautions Gait and balance retraining Functional training and self-care and home management, including activities of daily living and instrumental activities of daily living Provision of the necessary gait aids and functional adaptive equipment to enhance the patient's a functional buddhist Ensure adequate nutrition and hydration Sleep: No concerns Pain: Continue current regimen Discharge planning: Hopefully home this weekend, pending FI. Plan: I completed a substantive portion of this encounter, the medical decision makingportion of this note in its entirety, including Allied health note review, nursing note review, industrial methods consultant note review, discussion with nursing and case management, and more than 50% of my time was spent on counseling and coordination of care, time spent 35 minutes Patient was personally seen by me, Dr. Muir, on the day of encounter, reviewed the history and the relevant portions of the chart, including current orders, allied health and industrial methods consultant notes, labs/imaging and performed carranza elements of exam and I formulated the plan of care and facilitated the medical decision making. Documented By: Syd Muir MD 02/08/23 1142 Signed By: <Electronically signed by Syd Muir MD> 02/08/23 1149 [facility] Work Phone: 1(492) 132-731809-19-2023 Progress note Author Syd Muir [facility] February 07, 2023 11:45am Note Date/Time February 07, 2023 11:45am [facility] [address] [place] [address] Physiatry(Rehab) Progress Note Signed Patient: Kiki Moore MR#: [id number] : 1945 Acct:[id number] Age/Sex: 78 / F Adm Date: 3 Loc: Room: 1I9049-8 Type: ADM IN Attending Dr: Syd Muir MD Copies to: ~ Date of Service: 02/07/2023 Subjective Subjective Narrative: Ms. Moore is a 78 year old female presenting to acute rehab as a transfer from [facility]. 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 Patient reports a history of multiple previous joint surgeries including hip andknee revisions. Left knee has been bothering her for quite some time. She reports numerous steroid injections and other conservative treatment measures prior to surgery which were not effective. She has not underwent elective left total knee on 01/17/[address] [facility]. Placed on Xarelto for DVT prophylaxis postop. There is limited information available regarding the procedure and postoperative course as the chart is incomplete. Per patient there was no significant complication postoperatively; she was recommended rehabilitation and was admitted to a skilled facility for PT/OT. While at SNF, she developed left knee swelling, pain and incisional drainage and was subsequently placed on p.o. levofloxacin. Unfortunately, patient failed to demonstrate expected functional progress prompting her family to request a transfer to IRF for a more intense rehab therapy. On admission she reports continued left knee pain. The joint is somewhat edematous, erythematous and warm to touch. There was scant amount of serous drainage on the dressing. The incision is well approximated without visible dehiscence. Patient is also complaining of upset stomach and constipation. She does have active bowel sounds in all 4 quadrants and denies nausea, although admits to poor appetite. She did receive a dose of prn laxative this morning. Otherwise, offers no acute complaints or concerns. Cardiopulmonary status within normal limits. No neurological symptoms. Vitals are within normal limits. Patient was notified of recent lab values including low H&H and is agreeable to a blood transfusion. Interval history: Labs reviewed, stable. Afebrile Ambulating 75' and able to do stairs FI with daughter tomorrow, ? home Monday. Reviewed at team meeting. Chronic conditions stable Review of Systems Review of Systems All other systems reviewed & are negative unless noted below or in HPI Exam Physical Exam Vital Signs: Temp Pulse Resp BP Pulse Ox O2 Del Method 97.8 F 65 17 160/80 H 99 Room Air 02/06/23 17:10 02/07/23 08:29 02/07/23 08:29 02/07/23 08:29 02/06/23 17:10 02/06/23 23:30 Narrative: General: Awake, alert, oriented x3 HENT: Normal to inspection, normocephalic, atraumatic Eyes: PERRL, normal conjunctiva and sclera Neck: Normal ROM, normal visual inspection. Trachea midline. Cardio: Regular heart rate then rhythm Respiratory: Clear to auscultation bilaterally. Normal respiratory effort. No respiratory distress. GI: Abdomen soft, nontender, nondistended, active bowel sounds x4 quadrants Neuro: CN II-XII intact. Strength 5/5, equal bilaterally Extremities: Left knee edema and erythema. It is tender to touch there is some serous drainage on the dressing. TKA incision is well approximated without signs of dehiscence. Psych: Mood and affect appropriate. Normal speech. Objective Labs 02/07/23 05:10 02/02/23 05:54 Labs: Laboratory Results - last 24 hr 02/07/23 05:10 Corrected WBC 8.0 Uncorrected WBC Count 8.0 RBC 2.72 L Hgb 9.1 L Hct 27.0 L MCV 99.2 MCH 33.4 MCHC 33.7 RDW 16.0 H Plt Count 213 MPV 7.0 Neut % (Auto) 65.9 Lymph % (Auto) 17.4 [place] % (Auto) 15.5 Eos % (Auto) 0.8 Baso % (Auto) 0.4 Nucleat RBC Rel Count 0.1 Neut # (Auto) 5.2 Lymph # (Auto) 1.4 [place] # (Auto) 1.2 H Eos # (Auto) 0.1 Baso # (Auto) 0.0 Medications and Allergies Allergies and Active Meds: Allergies celecoxib [From Celebrex] Allergy (Verified 01/31/23 15:04) Hives gabapentin Allergy (Verified 01/31/23 15:04) Weakness rofecoxib [From Vioxx] Allergy (Verified 01/31/23 15:04) Dry Mucus Membranes Active Medications Generic Name Dose Route Start Last Admin Trade Name Freq PRN Reason Stop Dose Admin Acetaminophen 500 mg 01/31/23 14:12 02/07/23 01:49 Acetaminophen 500 Mg Tablet PO 01/31/24 14:11 500 mg Q4H PRN Administration Pain Al Hydrox/Mg Hydrox/Simethicone 30 ml 01/31/23 14:12 Mag Hydrox/Al Hydrox/Simeth 30 Ml Udc PO 01/31/24 14:11 Q4H PRN Indigestion Aspirin 81 mg 02/01/23 09:00 02/07/23 08:24 Aspirin 81 Mg Tab.Chew PO 02/01/24 08:59 81 mg DAILY BERTRAND Administration Atorvastatin Calcium 40 mg 01/31/23 21:00 02/06/23 20:58 Atorvastatin 40 Mg Tablet PO 01/31/24 20:59 40 mg QPM BERTRAND Administration Bisacodyl 10 mg 01/31/23 14:12 Bisacodyl 10 Mg Supp.Rect IL 01/31/24 14:11 DAILY PRN Constipation Brimonidine Tartrate 1 drops 02/01/23 09:00 02/07/23 08:22 Brimonidine 0.15% Op Soln 100 Drops/5 Ml Drops EYE-BOTH 02/01/24 08:59 1 drops DAILY BERTRAND Administration Docusate Sodium 283 mg 01/31/23 14:12 Docusate Enema 283 Mg/5 Ml Enema IL 01/31/24 14:11 DAILY PRN Constipation Docusate Sodium 100 mg 02/01/23 21:00 02/07/23 08:24 Docusate 100 Mg Capsule PO 02/01/24 20:59 100 mg BID BERTRAND Administration Ferrous Sulfate 324 mg 02/06/23 09:00 02/07/23 08:23 Ferrous Sulfate 324 Mg Tablet. PO 02/06/24 08:59 324 mg BID BERTRAND Administration Folic Acid 1 mg 02/03/23 09:00 02/03/23 09:44 Folic Acid 1 Mg Tablet PO 02/03/24 08:59 1 mg FR@0900 BERTRAND Administration Furosemide 20 mg 02/01/23 08:00 02/02/23 09:01 Furosemide 20 Mg Tablet PO 02/01/24 07:59 20 mg DAILY.8A BERTRAND Administration Hydroxychloroquine Sulfate 200 mg 01/31/23 21:00 02/07/23 08:23 Hydroxychloroquine Sulfate 200 Mg Tablet PO 01/31/24 20:59 200 mg BID BERTRAND Administration Lactulose 30 gm 01/31/23 14:12 02/01/23 09:21 Lactulose 20 Gm/30 Ml Udc PO 01/31/24 14:11 30 gm DAILY PRN Administration Constipation Latanoprost 1 drops 01/31/23 21:00 02/06/23 20:59 Latanoprost 0.005% Op Soln 50 Drops/2.5 Ml Bottle EYE-BOTH 01/31/24 20:59 1drops QPM BERTRAND Administration Lisinopril 10 mg 02/04/23 09:00 02/07/23 08:23 Lisinopril 10 Mg Tablet PO 02/04/24 08:59 10 mg DAILY BERTRAND Administration Ondansetron HCl 4 mg 01/31/23 14:52 02/02/23 08:59 Ondansetron Odt 4 Mg Tab.Rapdis PO 01/31/24 14:51 4 mg Q4HR PRN Administration Nausea And Vomiting Oxycodone HCl 5 mg 02/06/23 12:23 02/07/23 08:22 Oxycodone Ir 5 Mg Tablet PO 5 mg Q4HR PRN Administration Pain Scale 6 - 10 Pantoprazole Sodium 40 mg 02/02/23 10:00 02/07/23 08:23 Pantoprazole 40 Mg Tablet.Dr [place] 02/02/24 09:59 40 mg DAILY BERTRAND Administration Prednisone 5 mg 01/31/23 14:50 Prednisone 5 Mg Tablet PO 02/01/24 08:59 DAILY PRN arthritis pain Rivaroxaban 10 mg 02/05/23 09:00 02/07/23 08:23 Rivaroxaban 10 Mg Tablet PO 02/05/24 08:59 10 mg DAILY BERTRAND Administration Sennosides 2 tab 02/01/23 12:00 Sennosides 8.6 Mg Tablet PO 02/01/24 11:59 DAILY@12 PRN If no BM in 2 days Sodium Chloride 0 ml 01/31/23 14:12 02/02/23 12:11 Sodium Chloride 0.9 % 10 Ml Syringe IV-PUSH 01/31/24 14:11 10 ml PRN PRN Administration Flush Vitamin D 50 mcg 02/01/23 09:00 02/07/23 08:23 Cholecalciferol 25 Mcg (1,000 Units) Tablet PO 02/01/24 08:59 50 mcg DAILY BERTRAND Administration Assessment/Plan Assessment/Plan (1) Impaired mobility and activities of daily living: Code(s): Z74.09 - Other reduced mobility; Z78.9 - Other specified health status Status: Acute (2) CKD (chronic kidney disease): Code(s): N18.9 - Chronic kidney disease, unspecified Status: Acute (3) S/P total knee arthroplasty: Code(s): Z96.659 - Presence of unspecified artificial knee joint Status: Acute (4) Pulmonary hypertension: Code(s): I27.20 - Pulmonary hypertension, unspecified Status: Acute (5) Anemia: Code(s): D64.9 - Anemia, unspecified Status: Acute (6) Hypertension: Code(s): I10 - Essential (primary) hypertension Status: Acute (7) Rheumatoid arthritis: Code(s): M06.9 - Rheumatoid arthritis, unspecified Status: Acute (8) Chronic back pain: Code(s): M54.9 - Dorsalgia, unspecified; G89.29 - Other chronic pain Status: Acute (9) Postoperative wound infection: Code(s): T81.49XA - Infection following a procedure, other surgical site, initial encounter Status: Acute Plan 78-year-old female with extensive past medical history presenting to acute inpatient rehabilitation unit with functional limitation secondary to left totalknee arthroplasty on 01/17/2023. [facility] but failed to improve functionally and was transferred to us. * Improving * Ambulatory 75' and able to do some stairs, encourage more independence in room * Ortho appt 02/09 at [facility] Patient education Pressure ulcer prophylaxis; encourage mobilization, frequent postural changes, pressure-relief techniques DVT prophylaxis: Resume Xarelto.. Encourage deep breathing exercise incentive spirometry. Monitor bladder. Toileting schedule. Continue current bladder management, with scans as needed and CIC if needed. Start bowel care program every day to obtain continence, prevent ileus. Maintain fall precautions Gait and balance retraining Functional training and self-care and home management, including activities of daily living and instrumental activities of daily living Provision of the necessary gait aids and functional adaptive equipment to enhance the patient's a functional buddhist Ensure adequate nutrition and hydration Sleep: No concerns Pain: Continue current regimen Discharge planning: Hopefully home this weekend, pending FI. Plan: I completed a substantive portion of this encounter, the medical decision makingportion of this note in its entirety, including Allied health note review, nursing note review, industrial methods consultant note review, discussion with nursing and case management, and more than 50% of my time was spent on counseling and coordination of care, time spent 25 minutes Patient was personally seen by me, Dr. Muir, on the day of encounter, reviewed the history and the relevant portions of the chart, including current orders, allied health and industrial methods consultant notes, labs/imaging and performed carranza elements of exam and I formulated the plan of care and facilitated the medical decision making. Documented By: Syd Muir MD 02/07/231142 Signed By: <Electronically signed by Syd Muir MD> 02/07/23 1145 [facility] Work Phone: 1(296) 601-997509-18-2023 Progress note Author Syd Muir [facility] February 06, 2023 12:26pm Note Date/Time February 06, 2023 12:27pm [facility] [address] [place] [address] Physiatry(Rehab) Progress Note Signed Patient: Kiki Moore MR#: [id number] : 1945 Acct:[id number] Age/Sex: 78 / F Adm Date: 3 Loc: Room: [address] [place] [address] Type: ADM IN Attending Dr: Syd Muir MD Copies to: ~ Date of Service: 02/06/2023 Subjective Subjective Narrative: Ms. Moore is a 78 year old female presenting to acute rehab as a transfer from [facility] [place]. 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 Patient reports a history of multiple previous joint surgeries including hip andknee revisions. Left knee has been bothering her for quite some time. She reports numerous steroid injections and other conservative treatment measures prior to surgery which were not effective. She has not underwent elective left total knee on 01/17/[address] [facility]. Placed on Xarelto for DVT prophylaxis postop. There is limited information available regarding the procedure and postoperative course as the chart is incomplete. Per patient there was no significant complication postoperatively; she was recommended rehabilitation and was admitted to a skilled facility for PT/OT. While at SNF, she developed left knee swelling, pain and incisional drainage and was subsequently placed on p.o. levofloxacin. Unfortunately, patient failed to demonstrate expected functional progress prompting her family to request a transfer to IRF for a more intense rehab therapy. On admission she reports continued left knee pain. The joint is somewhat edematous, erythematous and warm to touch. There was scant amount of serous drainage on the dressing. The incision is well approximated without visible dehiscence. Patient is also complaining of upset stomach and constipation. She does have active bowel sounds in all 4 quadrants and denies nausea, although admits to poor appetite. She did receive a dose of prn laxative this morning. Otherwise, offers no acute complaints or concerns. Cardiopulmonary status within normal limits. No neurological symptoms. Vitals are within normal limits. Patient was notified of recent lab values including low H&H and is agreeable to a blood transfusion. Interval history: Continue current management, completed levaquin. Hgb stable after transfusion, ok to resume Xarelto. Discussed d/c planning, goal is this weekend. Review of Systems Review of Systems All other systems reviewed & are negative unless noted below or in HPI Exam Physical Exam Vital Signs: Temp Pulse Resp BP Pulse Ox O2 Del Method 97.7 F 67 16 152/73 H 97 Room Air 02/06/23 07:48 02/06/23 07:48 02/06/23 07:48 02/06/23 07:48 02/06/23 07:48 02/06/23 11:28 Narrative: General: Awake, alert, oriented x3 HENT: Normal to inspection, normocephalic, atraumatic Eyes: PERRL, normal conjunctiva and sclera Neck: Normal ROM, normal visual inspection. Trachea midline. Cardio: Regular heart rate then rhythm Respiratory: Clear to auscultation bilaterally. Normal respiratory effort. No respiratory distress. GI: Abdomen soft, nontender, nondistended, active bowel sounds x4 quadrants Neuro: CN II-XII intact. Strength 5/5, equal bilaterally Extremities: Left knee edema and erythema. It is tender to touch there is some serous drainage on the dressing. TKA incision is well approximated without signs of dehiscence. Psych: Mood and affect appropriate. Normal speech. Objective Labs 02/04/23 05:13 02/02/23 05:54 Medications and Allergies Allergies and Active Meds: Allergies celecoxib [From Celebrex] Allergy (Verified 01/31/23 15:04) Hives gabapentin Allergy (Verified 01/31/23 15:04) Weakness rofecoxib [From Vioxx] Allergy (Verified 01/31/23 15:04) Dry Mucus Membranes Active Medications Generic Name Dose Route Start Last Admin Trade Name Freq PRN Reason Stop Dose Admin Acetaminophen 500 mg 01/31/23 14:12 02/06/23 12:05 Acetaminophen 500 Mg Tablet PO 01/31/24 14:11 500 mg Q4H PRN Administration Pain Al Hydrox/Mg Hydrox/Simethicone 30 ml 01/31/23 14:12 Mag Hydrox/Al Hydrox/Simeth 30 Ml Udc PO 01/31/24 14:11 Q4H PRN Indigestion Aspirin 81 mg 02/01/23 09:00 02/06/23 09:42 Aspirin 81 Mg Tab.Chew PO 02/01/24 08:59 81 mg DAILY BERTRAND Administration Atorvastatin Calcium 40 mg 01/31/23 21:00 02/05/23 20:40 Atorvastatin 40 Mg Tablet PO 01/31/24 20:59 40 mg QPM BERTRAND Administration Bisacodyl 10 mg 01/31/23 14:12 Bisacodyl 10 Mg Supp.Rect IL 01/31/24 14:11 DAILY PRN Constipation Brimonidine Tartrate 1 drops 02/01/23 09:00 02/06/23 09:44 Brimonidine 0.15% Op Soln 100 Drops/5 Ml Drops EYE-BOTH 02/01/24 08:59 1 drops DAILY BERTRAND Administration Docusate Sodium 283 mg 01/31/23 14:12 Docusate Enema 283 Mg/5 Ml Enema IL 01/31/24 14:11 DAILY PRN Constipation Docusate Sodium 100 mg 02/01/23 21:00 02/06/23 09:43 Docusate 100 Mg Capsule PO 02/01/24 20:59 100 mg BID BERTRAND Administration Ferrous Sulfate 324 mg 02/06/23 09:00 02/06/23 09:43 Ferrous Sulfate 324 Mg Tablet. PO 02/06/24 08:59 324 mg BID BERTRAND Administration Folic Acid 1 mg 02/03/23 09:00 02/03/23 09:44 Folic Acid 1 Mg Tablet PO 02/03/24 08:59 1 mg FR@0900 BERTRAND Administration Furosemide 20 mg 02/01/23 08:00 02/02/23 09:01 Furosemide 20 Mg Tablet PO 02/01/24 07:59 20 mg DAILY.8A BERTRAND Administration Hydroxychloroquine Sulfate 200 mg 01/31/23 21:00 02/06/23 09:43 Hydroxychloroquine Sulfate 200 Mg Tablet PO 01/31/24 20:59 200 mg BID BERTRAND Administration Lactulose 30 gm 01/31/23 14:12 02/01/23 09:21 Lactulose 20 Gm/30 Ml Udc PO 01/31/24 14:11 30 gm DAILY PRN Administration Constipation Latanoprost 1 drops 01/31/23 21:00 02/05/23 20:39 Latanoprost 0.005% Op Soln 50 Drops/2.5 Ml Bottle EYE-BOTH 01/31/24 20:59 1drops QPM BERTRAND Administration Lisinopril 10 mg 02/04/23 09:00 02/06/23 09:43 Lisinopril 10 Mg Tablet PO 02/04/24 08:59 10 mg DAILY BERTRAND Administration Ondansetron HCl 4 mg 01/31/23 14:52 02/02/23 08:59 Ondansetron Odt 4 Mg Tab.Rapdis PO 01/31/24 14:51 4 mg Q4HR PRN Administration Nausea And Vomiting Oxycodone HCl 5 mg 02/06/23 12:23 Oxycodone Ir 5 Mg Tablet PO Q4HR PRN Pain Scale 6 - 10 Pantoprazole Sodium 40 mg 02/02/23 10:00 02/06/23 09:43 Pantoprazole 40 Mg Tablet. PO 02/02/24 09:59 40 mg DAILY BERTRAND Administration Prednisone 5 mg 01/31/23 14:50 Prednisone 5 Mg Tablet PO 02/01/24 08:59 DAILY PRN arthritis pain Rivaroxaban 10 mg 02/05/23 09:00 02/06/23 09:43 Rivaroxaban 10 Mg Tablet PO 02/05/24 08:59 10 mg DAILY BERTRAND Administration Sennosides 2 tab 02/01/23 12:00 Sennosides 8.6 Mg Tablet PO 02/01/24 11:59 DAILY@12 PRN If no BM in 2 days Sodium Chloride 0 ml 01/31/23 14:12 02/02/23 12:11 Sodium Chloride 0.9 % 10 Ml Syringe IV-PUSH 01/31/24 14:11 10 ml PRN PRN Administration Flush Vitamin D 50 mcg 02/01/23 09:00 02/06/23 09:43 Cholecalciferol 25 Mcg (1,000 Units) Tablet PO 02/01/24 08:59 50 mcg DAILY BERTRAND Administration Assessment/Plan Assessment/Plan (1) Impaired mobility and activities of daily living: Code(s): Z74.09 - Other reduced mobility; Z78.9 - Other specified health status Status: Acute (2) CKD (chronic kidney disease): Code(s): N18.9 - Chronic kidney disease, unspecified Status: Acute (3) S/P total knee arthroplasty: Code(s): Z96.659 - Presence of unspecified artificial knee joint Status: Acute (4) Pulmonary hypertension: Code(s): I27.20 - Pulmonary hypertension, unspecified Status: Acute (5) Anemia: Code(s): D64.9 - Anemia, unspecified Status: Acute (6) Hypertension: Code(s): I10 - Essential (primary) hypertension Status: Acute (7) Rheumatoid arthritis: Code(s): M06.9 - Rheumatoid arthritis, unspecified Status: Acute (8) Chronic back pain: Code(s): M54.9 - Dorsalgia, unspecified; G89.29 - Other chronic pain Status: Acute (9) Postoperative wound infection: Code(s): T81.49XA - Infection following a procedure, other surgical site, initial encounter Status: Acute Plan 78-year-old female with extensive past medical history presenting to acute inpatient rehabilitation unit with functional limitation secondary to left totalknee arthroplasty on 01/17/2023. [facility] but failed to improve functionally and was transferred to us. * Hgb stable. * Xarelto resumed * D/c Roxicodone 10 mg tablets, ok to continue 5 mg tablets. * Insurance recert today, goal is home this weekend * Needs FI. Patient education Pressure ulcer prophylaxis; encourage mobilization, frequent postural changes, pressure-relief techniques DVT prophylaxis: Resume Xarelto.. Encourage deep breathing exercise incentive spirometry. Monitor bladder. Toileting schedule. Continue current bladder management, with scans as needed and CIC if needed. Start bowel care program every day to obtain continence, prevent ileus. Maintain fall precautions Gait and balance retraining Functional training and self-care and home management, including activities of daily living and instrumental activities of daily living Provision of the necessary gait aids and functional adaptive equipment to enhance the patient's a functional buddhist Ensure adequate nutrition and hydration Sleep: No concerns Pain: Continue current regimen Discharge planning: Hopefully home this weekend. Plan: I completed a substantive portion of this encounter, the medical decision makingportion of this note in its entirety, including Allied health note review, nursing note review, industrial methods consultant note review, discussion with nursing and case management, and more than 50% of my time was spent on counseling and coordination of care, time spent 45 minutes Patient was personally seen by me, Dr. Muir, on the day of encounter, reviewed the history and the relevant portions of the chart, including current orders, allied health and industrial methods consultant notes, labs/imaging and performed carranza elements of exam and I formulated the plan of care and facilitated the medical decision making. Documented By: Syd Muir MD 02/06/23 1224 Signed By: <Electronically signed by Syd Muir MD> 02/06/23 6[address] [facility] Work Phone: 1(602) 741-641709-18-2023 Progress note Author Syd Muir [facility] February 06, 2023 12:24pm Note Date/Time February 04, 2023 11:17am [facility] [address] [place] [address] Physiatry(Rehab) Progress Note Signed Patient: Kiki Moore MR#: [id number] : 1945 Acct:[id number] Age/Sex: 78 / F Adm Date: 3 Loc: 5T Room: 2I8402-1 Type: ADM IN Attending Dr: Syd Muir MD Copies to: ~ <Sofya Petit APRN - Last Filed: 02/04/23 11:17> Date of Service: 02/04/2023 Subjective <Sofya Petit APRN - Last Filed: 02/04/23 11:17> Subjective Narrative: Ms. Moore is a 78 year old female presenting to acute rehab as a transfer from [facility]. 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 Patient reports a history of multiple previous joint surgeries including hip andknee revisions. Left knee has been bothering her for quite some time. She reports numerous steroid injections and other conservative treatment measures prior to surgery which were not effective. She has not underwent elective left total knee on 01/17/[address] [facility]. Placed on Xarelto for DVT prophylaxis postop. There is limited information available regarding the procedure and postoperative course as the chart is incomplete. Per patient there was no significant complication postoperatively; she was recommended rehabilitation and was admitted to a skilled facility for PT/OT. While at SNF, she developed left knee swelling, pain and incisional drainage and was subsequently placed on p.o. levofloxacin. Unfortunately, patient failed to demonstrate expected functional progress prompting her family to request a transfer to IRF for a more intense rehab therapy. On admission she reports continued left knee pain. The joint is somewhat edematous, erythematous and warm to touch. There was scant amount of serous drainage on the dressing. The incision is well approximated without visible dehiscence. Patient is also complaining of upset stomach and constipation. She does have active bowel sounds in all 4 quadrants and denies nausea, although admits to poor appetite. She did receive a dose of prn laxative this morning. Otherwise, offers no acute complaints or concerns. Cardiopulmonary status within normal limits. No neurological symptoms. Vitals are within normal limits. Patient was notified of recent lab values including low H&H and is agreeable to a blood transfusion. Interval history: Patient is up in a wheelchair on exam this morning. She is alert, oriented, calm and pleasant. Reports continued left knee discomfort, which is definitely worse with activity. She has been taking her pain medications routinely with some relief. She is able to do a little bit more in therapy and did ambulate 30+16 feet with a wheeled walker requiring CGA plus wheelchair follow. She still has not moved her bowels and reports bloating and poor appetite. Willadminister a dose of relistor today. Monitor GI symptoms. Patient has a scheduled orthopedics appointment next week. Unsure if we will beable to set up transportation for the patient. She will be unable to transfer self into a family car if no transport is available. Will have nursing staff call the office to see if the imaging could be performed at [facility] and faxed over to surgeons office. Review of Systems <Sofya Petit APRN - Last Filed: 02/04/23 11:17> Review of Systems All other systems reviewed & are negative unless noted below or in HPI Exam <Sofya Petit APRN - Last Filed: 02/04/23 11:17> Physical Exam Vital Signs: Temp Pulse Resp BP Pulse Ox O2 Del Method 98.0 F 74 18 134/77 95 Room Air 02/04/23 06:40 02/04/23 06:40 02/04/23 06:40 02/04/23 09:22 02/04/23 06:40 02/04/23 06:40 Narrative: General: Awake, alert, oriented x3 HENT: Normal to inspection, normocephalic, atraumatic Eyes: PERRL, normal conjunctiva and sclera Neck: Normal ROM, normal visual inspection. Trachea midline. Cardio: Regular heart rate then rhythm Respiratory: Clear to auscultation bilaterally. Normal respiratory effort. No respiratory distress. GI: Abdomen soft, nontender, nondistended, active bowel sounds x4 quadrants Neuro: CN II-XII intact. Strength 5/5, equal bilaterally Extremities: Left knee edema and erythema. It is tender to touch there is some serous drainage on the dressing. TKA incision is well approximated without signs of dehiscence. Psych: Mood and affect appropriate. Normal speech. Objective <Sofya Lemonaya, SCIENCES DEAN - Last Filed: 02/04/23 11:17> Labs 02/04/23 05:13 02/02/23 05:54 Labs: Laboratory Results - last 24 hr 02/04/23 05:13 Corrected WBC 6.3 Uncorrected WBC Count 6.3 RBC 2.58 L Hgb 8.7 L Hct 25.4 L MCV 98.3 MCH 33.5 MCHC 34.0 RDW 14.7 Plt Count 235 MPV 6.6 Neut % (Auto) 65.0 Lymph % (Auto) 17.4 [place] % (Auto) 14.2 Eos % (Auto) 2.9 Baso % (Auto) 0.5 Nucleat RBC Rel Count 0.1 Neut # (Auto) 4.1 Lymph # (Auto) 1.1 [place] # (Auto) 0.9 H Eos # (Auto) 0.2 Baso # (Auto) 0.0 Medications and Allergies Allergies and Active Meds: Allergies celecoxib [From Celebrex] Allergy (Verified 01/31/23 15:04) Hives gabapentin Allergy (Verified 01/31/23 15:04) Weakness rofecoxib [From Vioxx] Allergy (Verified 01/31/23 15:04) Dry Mucus Membranes Active Medications Generic Name Dose Route Start Last Admin Trade Name Isaiq PRN Reason Stop Dose Admin Acetaminophen 500 mg 01/31/23 14:12 02/04/23 02:27 Acetaminophen 500 Mg Tablet PO 01/31/24 14:11 500 mg Q4H PRN Administration Pain Al Hydrox/Mg Hydrox/Simethicone 30 ml 01/31/23 14:12 Mag Hydrox/Al Hydrox/Simeth 30 Ml Udc PO 01/31/24 14:11 Q4H PRN Indigestion Aspirin 81 mg 02/01/23 09:00 02/04/23 09:20 Aspirin 81 Mg Tab.Chew PO 02/01/24 08:59 81 mg DAILY BERTRAND Administration Atorvastatin Calcium 40 mg 01/31/23 21:00 02/03/23 20:13 Atorvastatin 40 Mg Tablet PO 01/31/24 20:59 40 mg QPM BERTRAND Administration Bisacodyl 10 mg 01/31/23 14:12 Bisacodyl 10 Mg Supp.Rect IL 01/31/24 14:11 DAILY PRN Constipation Brimonidine Tartrate 1 drops 02/01/23 09:00 02/04/23 09:20 Brimonidine 0.15% Op Soln 100 Drops/5 Ml Drops EYE-BOTH 02/01/24 08:59 1 drops DAILY BERTRAND Administration Docusate Sodium 283 mg 01/31/23 14:12 Docusate Enema 283 Mg/5 Ml Enema IL 01/31/24 14:11 DAILY PRN Constipation Docusate Sodium 100 mg 02/01/23 21:00 02/04/23 09:20 Docusate 100 Mg Capsule PO 02/01/24 20:59 100 mg BID BERTRAND Administration Ferrous Sulfate 324 mg 02/06/23 09:00 Ferrous Sulfate 324 Mg Tablet.Dr PO 02/06/24 08:59 BID BERTRAND Folic Acid 1 mg 02/03/23 09:00 02/03/23 09:44 Folic Acid 1 Mg Tablet PO 02/03/24 08:59 1 mg FR@0900 BERTRAND Administration Furosemide 20 mg 02/01/23 08:00 02/02/23 09:01 Furosemide 20 Mg Tablet PO 02/01/24 07:59 20 mg DAILY.8A BERTRAND Administration Hydroxychloroquine Sulfate 200 mg 01/31/23 21:00 02/04/23 09:20 Hydroxychloroquine Sulfate 200 Mg Tablet PO 01/31/24 20:59 200 mg BID BERTRAND Administration Lactulose 30 gm 01/31/23 14:12 02/01/23 09:21 Lactulose 20 Gm/30 Ml Udc PO 01/31/24 14:11 30 gm DAILY PRN Administration Constipation Latanoprost 1 drops 01/31/23 21:00 02/03/23 20:13 Latanoprost 0.005% Op Soln 50 Drops/2.5 Ml Bottle EYE-BOTH 01/31/24 20:59 1drops QPM BERTRAND Administration Levofloxacin 750 mg 02/01/23 10:30 02/03/23 11:43 Levofloxacin 750 Mg Tablet PO 02/05/23 10:30 750 mg Q48H BERTRAND Administration Lisinopril 10 mg 02/04/23 09:00 02/04/23 09:20 Lisinopril 10 Mg Tablet PO 02/04/24 08:59 10 mg DAILY BERTRAND Administration Ondansetron HCl 4 mg 01/31/23 14:52 02/02/23 08:59 Ondansetron Odt 4 Mg Tab.Rapdis PO 01/31/24 14:51 4 mg Q4HR PRN Administration Nausea And Vomiting Oxycodone HCl 10 mg 02/02/23 09:10 02/04/23 06:45 Oxycodone Ir 5 Mg Tablet PO 10 mg Q4HR PRN Administration Pain Scale 8 - 10 Oxycodone HCl 5 mg 02/02/23 09:52 Oxycodone Ir 5 Mg Tablet PO Q4HR PRN Pain Scale 4 - 7 Pantoprazole Sodium 40 mg 02/02/23 10:00 02/04/23 09:20 Pantoprazole 40 Mg Tablet. PO 02/02/24 09:59 40 mg DAILY BETRRAND Administration Prednisone 5 mg 01/31/23 14:50 Prednisone 5 Mg Tablet PO 02/01/24 08:59 DAILY PRN arthritis pain Sennosides 2 tab 02/01/23 12:00 Sennosides 8.6 Mg Tablet PO 02/01/24 11:59 DAILY@12 PRN If no BM in 2 days Sodium Chloride 0 ml 01/31/23 14:12 02/02/23 12:11 Sodium Chloride 0.9 % 10 Ml Syringe IV-PUSH 01/31/24 14:11 10 ml PRN PRN Administration Flush Sodium Chloride 10 ml 02/02/23 06:00 02/04/23 06:44 Sodium Chloride 0.9 % 10 Ml Syringe IV-PUSH 02/02/24 05:59 10 ml Q8H BERTRAND Administration Vitamin D 50 mcg 02/01/23 09:00 02/04/23 09:20 Cholecalciferol 25 Mcg (1,000 Units) Tablet PO 02/01/24 08:59 50 mcg DAILY BERTRAND Administration Assessment/Plan <Sofya Petit, SCIENCES DEAN - Last Filed: 02/04/23 11:17> Assessment/Plan (1) Impaired mobility and activities of daily living: Code(s): Z74.09 - Other reduced mobility; Z78.9 - Other specified health status Status: Acute (2) CKD (chronic kidney disease): Code(s): N18.9 - Chronic kidney disease, unspecified Status: Acute (3) S/P total knee arthroplasty: Code(s): Z96.659 - Presence of unspecified artificial knee joint Status: Acute (4) Pulmonary hypertension: Code(s): I27.20 - Pulmonary hypertension, unspecified Status: Acute (5) Anemia: Code(s): D64.9 - Anemia, unspecified Status: Acute (6) Hypertension: Code(s): I10 - Essential (primary) hypertension Status: Acute (7) Rheumatoid arthritis: Code(s): M06.9 - Rheumatoid arthritis, unspecified Status: Acute (8) Chronic back pain: Code(s): M54.9 - Dorsalgia, unspecified; G89.29 - Other chronic pain Status: Acute (9) Postoperative wound infection: Code(s): T81.49XA - Infection following a procedure, other surgical site, initial encounter Status: Acute Plan Needs 8-year-old female with extensive past medical history presenting to acute inpatient rehabilitation unit with functional limitation secondary to left totalknee arthroplasty on 01/17/2023. [facility] but failed to improve functionally and was transferred to us. * Give a dose of relistor today. If no BM by tomorrow, give additional dose. Consider abdominal x-ray if C/O abdominal pain, nausea, vomiting. * Hemoglobin/hematocrit slightly down, 8.7/25.4. Will recheck again on Monday. Her vitals are stable. No complaints of dizziness or lightheadedness. She is receiving her last iron infusion today. Patient education Pressure ulcer prophylaxis; encourage mobilization, frequent postural changes, pressure-relief techniques DVT prophylaxis: Resume Xarelto when blood counts are stable. Encourage deep breathing exercise incentive spirometry. Monitor bladder. Toileting schedule. Continue current bladder management, with scans as needed and CIC if needed. Start bowel care program every day to obtain continence, prevent ileus. Maintain fall precautions Gait and balance retraining Functional training and self-care and home management, including activities of daily living and instrumental activities of daily living Provision of the necessary gait aids and functional adaptive equipment to enhance the patient's a functional buddhist Ensure adequate nutrition and hydration Sleep: No concerns Pain: Continue current regimen Discharge planning: Hopefully home in a week or two. I spent greater than 15 minutes for services, including [id number] encounter with the patient, discussion of the case, plan of care, and exam; and [id number] activities, such as reviewing pertinent industrial methods consultant documentation, recent therapy notes, laboratory and radiology studies, and discussion of case with care team including physician, nursing, employment case manager, and therapists. More than 50 % of time was spent on patient/family counseling or coordination ofcare. <Syd Muir MD - Last Filed: 02/06/23 12:24> Assessment/Plan (1) Impaired mobility and activities of daily living: (2) CKD (chronic kidney disease): (3) S/P total knee arthroplasty: (4) Pulmonary hypertension: (5) Anemia: (6) Hypertension: (7) Rheumatoid arthritis: (8) Chronic back pain: (9) Postoperative wound infection: Plan: I reviewed the history and the relevant portions of the chart, including currentorders, allied health and industrial methods consultant notes, labs/imaging and plan of care as above. Documented By: Sofya Petit APRN 02/04/23 1 111 Signed By: <Electronically signed by TRAY Petit> 02/04/23 1117 <Electronically signed by Syd Muir MD> 02/06/23 1224 [facility] Work Phone: 1(191) 108-661109-18-2023 Progress note Author Syd Muir [facility] February 06, 2023 12:23pm Note Date/Time February 02, 2023 2:09pm [facility] [address] [place] [address] Physiatry(Rehab) Progress Note Signed Patient: Kiki Moore MR#: [id number] : 1945 Acct:[id number] Age/Sex: 78 / F Adm Date: 3 Loc: Room: 0D5722-1 Type: ADM IN Attending Dr: Syd Muir MD Copies to: ~ <Sofya Petit APRN - Last Filed: 02/02/23 14:13> Date of Service: 02/02/2023 Subjective <Sofya Petit APRN - Last Filed: 02/02/23 14:13> Subjective Narrative: Ms. Moore is a 78 year old female presenting to acute rehab as a transfer from [facility]. 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 Patient reports a history of multiple previous joint surgeries including hip andknee revisions. Left knee has been bothering her for quite some time. She reports numerous steroid injections and other conservative treatment measures prior to surgery which were not effective. She has not underwent elective left total knee on 01/17/[address] [facility]. Placed on Xarelto for DVT prophylaxis postop. There is limited information available regarding the procedure and postoperative course as the chart is incomplete. Per patient there was no significant complication postoperatively; she was recommended rehabilitation and was admitted to a skilled facility for PT/OT. While at SNF, she developed left knee swelling, pain and incisional drainage and was subsequently placed on p.o. levofloxacin. Unfortunately, patient failed to demonstrate expected functional progress prompting her family to request a transfer to IRF for a more intense rehab therapy. On admission she reports continued left knee pain. The joint is somewhat edematous, erythematous and warm to touch. There was scant amount of serous drainage on the dressing. The incision is well approximated without visible dehiscence. Patient is also complaining of upset stomach and constipation. She does have active bowel sounds in all 4 quadrants and denies nausea, although admits to poor appetite. She did receive a dose of prn laxative this morning. Otherwise, offers no acute complaints or concerns. Cardiopulmonary status within normal limits. No neurological symptoms. Vitals are within normal limits. Patient was notified of recent lab values including low H&H and is agreeable to a blood transfusion. Interval history: Patient seen and examined in her room. She is alert and oriented, answering questions appropriately. Reports being very tired after the therapy. Does admit to uncontrolled knee pain, states pain regimen is not effective. She has yet to receive the scheduled blood transfusion, as she was found to haveantibodies requiring further testing. PRBCs will tentatively be delivered this afternoon. We will initiate iron supplementation meanwhile. Limited therapy tolerance due to pain and extreme fatigue. Was able to ambulate8 feet with a rolling walker, CGA plus wheelchair follow. CGA/SBA for transfers. Review of Systems <Sofya Petit APRN - Last Filed: 02/02/23 14:13> Review of Systems All other systems reviewed & are negative unless noted below or in HPI Exam <Sofya Petit APRN - Last Filed: 02/02/23 14:13> Physical Exam Vital Signs: Temp Pulse Resp BP Pulse Ox O2 Del Method 97.6 F 69 16 123/83 96 Room Air 02/02/23 05:00 02/02/23 05:00 02/02/23 05:00 02/02/23 05:00 02/02/23 05:00 02/02/23 05:00 Narrative: General: Awake, alert, oriented x3 HENT: Normal to inspection, normocephalic, atraumatic Eyes: PERRL, normal conjunctiva and sclera Neck: Normal ROM, normal visual inspection. Trachea midline. Cardio: Regular heart rate then rhythm Respiratory: Clear to auscultation bilaterally. Normal respiratory effort. No respiratory distress. GI: Abdomen soft, nontender, nondistended, active bowel sounds x4 quadrants Neuro: CN II-XII intact. Strength 5/5, equal bilaterally Extremities: Left knee edema and erythema. It is tender to touch there is some serous drainage on the dressing. TKA incision is well approximated without signs of dehiscence. Psych: Mood and affect appropriate. Normal speech. Objective <Sofya Petit, SCIENCES DEAN - Last Filed: 02/02/23 14:13> Labs 02/02/23 05:54 02/02/23 05:54 Labs: Laboratory Results - last 24 hr 02/01/23 02/02/23 02/02/23 18:58 02:20 02:20 Corrected WBC Uncorrected WBC Count RBC Hgb Hct MCV MCH MCHC RDW Plt Count MPV Neut % (Auto) Lymph % (Auto) [place] % (Auto) Eos % (Auto) Baso % (Auto) Nucleat RBC Rel Count Neut # (Auto) Lymph # (Auto) [place] # (Auto) Eos # (Auto) Baso # (Auto) Absolute Retic Percent Retic Haptoglobin PHA Creatinine Clear Sodium Potassium Chloride Carbon Dioxide Anion Gap BUN Creatinine Est GFR (CKD-EPI) Glucose Osmolality Calcium Iron TIBC Iron Saturation Transferrin Ferritin Lactate Dehydrogenase Total Cortisol Urine Osmolality 465 Ur Sodium mmol/L 65.0 Reference Lab Result Sent to [facility] 02/02/23 02/02/23 02/02/23 05:54 05:54 05:54 Corrected WBC 5.8 Uncorrected WBC Count 5.8 RBC 1.89 L Hgb 6.6 L Hct 18.9 L* MCV 100.5 H MCH 34.9 H MCHC 34.8 RDW 14.8 Plt Count 267 MPV 6.6 Neut % (Auto) 74.0 Lymph % (Auto) 13.6 [place] % (Auto) 10.9 Eos % (Auto) 1.2 Baso % (Auto) 0.3 Nucleat RBC Rel Count 0.2 Neut # (Auto) 4.3 Lymph # (Auto) 0.8 L [place] # (Auto) 0.6 Eos # (Auto) 0.1 Baso # (Auto) 0.0 Absolute Retic Percent Retic Haptoglobin PHA Creatinine Clear 39.82 Sodium 130 L Potassium 3.9 Chloride 100 Carbon Dioxide 25.1 Anion Gap 8.8 BUN 16 Creatinine 1.14 Est GFR (CKD-EPI) 49.582 Glucose 92 Osmolality 274 L Calcium 8.6 Iron 36 L TIBC 281 Iron Saturation 12.8 L Transferrin 201 L Ferritin 102.9 Lactate Dehydrogenase Total Cortisol 14.8 Urine Osmolality Ur Sodium mmol/L Reference Lab Result 02/02/23 02/02/23 02/02/23 05:54 05:54 10:09 Corrected WBC Uncorrected WBC Count RBC Hgb Hct MCV MCH MCHC RDW Plt Count MPV Neut % (Auto) Lymph % (Auto) [place] % (Auto) Eos % (Auto) Baso % (Auto) Nucleat RBC Rel Count Neut # (Auto) Lymph # (Auto) [place] # (Auto) Eos # (Auto) Baso # (Auto) Absolute Retic 0.063 Percent Retic 3.3 H Haptoglobin 156 PHA Creatinine Clear Sodium Potassium Chloride Carbon Dioxide Anion Gap BUN Creatinine Est GFR (CKD-EPI) Glucose Osmolality Calcium Iron TIBC Iron Saturation Transferrin Ferritin Lactate Dehydrogenase Cancelled Total Cortisol Urine Osmolality Ur Sodium mmol/L Reference Lab Result Medications and Allergies Allergies and Active Meds: Allergies celecoxib [From Celebrex] Allergy (Verified 01/31/23 15:04) Hives gabapentin Allergy (Verified 01/31/23 15:04) Weakness rofecoxib [From Vioxx] Allergy (Verified 01/31/23 15:04) Dry Mucus Membranes Active Medications Generic Name Dose Route Start Last Admin Trade Name Freq PRN Reason Stop Dose Admin Acetaminophen 500 mg 01/31/23 14:12 02/02/23 09:03 Acetaminophen 500 Mg Tablet PO 01/31/24 14:11 500 mg Q4H PRN Administration Pain Al Hydrox/Mg Hydrox/Simethicone 30 ml 01/31/23 14:12 Mag Hydrox/Al Hydrox/Simeth 30 Ml Udc PO 01/31/24 14:11 Q4H PRN Indigestion Aspirin 81 mg 02/01/23 09:00 02/02/23 09:01 Aspirin 81 Mg Tab.Chew PO 02/01/24 08:59 81 mg DAILY BERTRAND Administration Atorvastatin Calcium 40 mg 01/31/23 21:00 02/01/23 20:19 Atorvastatin 40 Mg Tablet PO 01/31/24 20:59 40 mg QPM BERTRAND Administration Bisacodyl 10 mg 01/31/23 14:12 Bisacodyl 10 Mg Supp.Rect IL 01/31/24 14:11 DAILY PRN Constipation Brimonidine Tartrate 1 drops 02/01/23 09:00 02/02/23 09:05 Brimonidine 0.15% Op Soln 100 Drops/5 Ml Drops EYE-BOTH 02/01/24 08:59 1 drops DAILY BERTRAND Administration Docusate Sodium 283 mg 01/31/23 14:12 Docusate Enema 283 Mg/5 Ml Enema IL 01/31/24 14:11 DAILY PRN Constipation Docusate Sodium 100 mg 02/01/23 21:00 02/02/23 09:01 Docusate 100 Mg Capsule PO 02/01/24 20:59 100 mg BID BERTRAND Administration Ferrous Sulfate 324 mg 02/02/23 09:15 02/02/23 12:15 Ferrous Sulfate 324 Mg Tablet. PO 02/02/24 09:14 Not Given BID BERTRAND Folic Acid 1 mg 02/03/23 09:00 Folic Acid 1 Mg Tablet PO 02/03/24 08:59 FR@0900 BERTRAND Furosemide 20 mg 02/01/23 08:00 02/02/23 09:01 Furosemide 20 Mg Tablet PO 02/01/24 07:59 20 mg DAILY.8A BERTRAND Administration Hydroxychloroquine Sulfate 200 mg 01/31/23 21:00 02/02/23 09:01 Hydroxychloroquine Sulfate 200 Mg Tablet PO 01/31/24 20:59 200 mg BID BERTRAND Administration Ferric Sodium Gluconate 270 mls @ 135 mls/hr 02/02/23 09:50 02/02/23 12:05 Complex 250 mg/ Sodium IV 02/04/23 09:01 135 mls/hr Chloride QAM BERTRAND Administration Lactulose 30 gm 01/31/23 14:12 02/01/23 09:21 Lactulose 20 Gm/30 Ml Udc PO 01/31/24 14:11 30 gm DAILY PRN Administration Constipation Latanoprost 1 drops 01/31/23 21:00 02/01/23 20:16 Latanoprost 0.005% Op Soln 50 Drops/2.5 Ml Bottle EYE-BOTH 01/31/24 20:59 Not Given QPM BERTRAND Levofloxacin 750 mg 02/01/23 10:30 02/01/23 11:00 Levofloxacin 750 Mg Tablet PO 02/05/23 10:30 750 mg Q48H BERTRAND Administration Lisinopril 20 mg 02/03/23 09:00 Lisinopril 20 Mg Tablet PO 02/03/24 08:59 DAILY BERTRAND Ondansetron HCl 4 mg 01/31/23 14:52 02/02/23 08:59 Ondansetron Odt 4 Mg Tab.Rapdis PO 01/31/24 14:51 4 mg Q4HR PRN Administration Nausea And Vomiting Oxycodone HCl 10 mg 02/02/23 09:10 02/02/23 12:16 Oxycodone Ir 5 Mg Tablet PO 10 mg Q4HR PRN Administration Pain Scale 8 - 10 Oxycodone HCl 5 mg 02/02/23 09:52 Oxycodone Ir 5 Mg Tablet PO Q4HR PRN Pain Scale 4 - 7 Pantoprazole Sodium 40 mg 02/02/23 10:00 02/02/23 12:15 Pantoprazole 40 Mg Tablet. PO 02/02/24 09:59 40 mg DAILY BERTRAND Administration Prednisone 5 mg 01/31/23 14:50 Prednisone 5 Mg Tablet PO 02/01/24 08:59 DAILY PRN arthritis pain Sennosides 2 tab 02/01/23 12:00 Sennosides 8.6 Mg Tablet PO 02/01/24 11:59 DAILY@12 PRN If no BM in 2 days Sodium Chloride 0 ml 01/31/23 14:12 02/02/23 12:11 Sodium Chloride 0.9 % 10 Ml Syringe IV-PUSH 01/31/24 14:11 10 ml PRN PRN Administration Flush Sodium Chloride 10 ml 02/02/23 06:00 02/02/23 05:16 Sodium Chloride 0.9 % 10 Ml Syringe IV-PUSH 02/02/24 05:59 10 ml Q8H BERTRAND Administration Vitamin D 50 mcg 02/01/23 09:00 02/02/23 09:01 Cholecalciferol 25 Mcg (1,000 Units) Tablet PO 02/01/24 08:59 50 mcg DAILY BERTRAND Administration Assessment/Plan <Sofya FlemingTRAY jang - Last Filed: 02/02/23 14:13> Assessment/Plan (1) Impaired mobility and activities of daily living: Code(s): Z74.09 - Other reduced mobility; Z78.9 - Other specified health status Status: Acute (2) CKD (chronic kidney disease): Code(s): N18.9 - Chronic kidney disease, unspecified Status: Acute (3) S/P total knee arthroplasty: Code(s): Z96.659 - Presence of unspecified artificial knee joint Status: Acute (4) Pulmonary hypertension: Code(s): I27.20 - Pulmonary hypertension, unspecified Status: Acute (5) Anemia: Code(s): D64.9 - Anemia, unspecified Status: Acute (6) Hypertension: Code(s): I10 - Essential (primary) hypertension Status: Acute (7) Rheumatoid arthritis: Code(s): M06.9 - Rheumatoid arthritis, unspecified Status: Acute (8) Chronic back pain: Code(s): M54.9 - Dorsalgia, unspecified; G89.29 - Other chronic pain Status: Acute (9) Postoperative wound infection: Code(s): T81.49XA - Infection following a procedure, other surgical site, initial encounter Status: Acute Plan Needs 8-year-old female with extensive past medical history presenting to acute inpatient rehabilitation unit with functional limitation secondary to left totalknee arthroplasty on 01/17/2023. [facility] but failed to improve functionally and was transferred to us. * Was found to have antibodies in her blood, PRBCs will be transfused as soon as they are delivered today. She was started on oral iron supplementation and will also receive IV iron x3 doses per hospitalist team orders. * Continue to hold Xarelto until H&H are stable. * Left knee x-ray reviewed. Demonstrates satisfactory appearance of knee re placement without complication and a small knee effusion. Continue supportive treatment. Patient education Pressure ulcer prophylaxis; encourage mobilization, frequent postural changes, pressure-relief techniques DVT prophylaxis: Resume Xarelto when blood counts are stable. Encourage deep breathing exercise incentive spirometry. Monitor bladder. Toileting schedule. Continue current bladder management, with scans as needed and CIC if needed. Start bowel care program every day to obtain continence, prevent ileus. Maintain fall precautions Gait and balance retraining Functional training and self-care and home management, including activities of daily living and instrumental activities of daily living Provision of the necessary gait aids and functional adaptive equipment to enhance the patient's a functional buddhist Ensure adequate nutrition and hydration Sleep: No concerns Pain: Continue current regimen Discharge planning: Hopefully home in a week or two. I spent greater than 15 minutes for services, including [id number] encounter with the patient, discussion of the case, plan of care, and exam; and [id number] activities, such as reviewing pertinent industrial methods consultant documentation, recent therapy notes, laboratory and radiology studies, and discussion of case with care team including physician, nursing, employment case manager, and therapists. More than 50 % of time was spent on patient/family counseling or coordination ofcare. <Syd Muir MD - Last Filed: 02/06/23 12:23> Assessment/Plan (1) Impaired mobility and activities of daily living: (2) CKD (chronic kidney disease): (3) S/P total knee arthroplasty: (4) Pulmonary hypertension: (5) Anemia: (6) Hypertension: (7) Rheumatoid arthritis: (8) Chronic back pain: (9) Postoperative wound infection: Plan: I completed a substantive portion of this encounter, the medical decision makingportion of this note in its entirety, including Allied health note review, nursing note review, industrial methods consultant note review, discussion with nursing and case management, and more than 50% of my time was spent on counseling and coordination of care, time spent 25 minutes Patient was personally seen by me, Dr. Muir, on the day of encounter, reviewed the history and the relevant portions of the chart, including current orders, allied health and industrial methods consultant notes, labs/imaging and performed carranza elements of exam and I formulated the plan of care and facilitated the medical decision making. Complete oral antibiotics for surgical site/postop wound infection. Transfuse 2 units PRBCs. Documented By: Sofya Petit APRN 02/02/23 1 403 Signed By: <Electronically signed by TRAY Petit> 02/02/23 1413 <Electronically signed by Syd Muir MD> 02/06/23 1223 [facility] Work Phone: [phone] [phone] History and physical note Author Syd Muir [facility] February 06, 2023 12:22pm Note Date/Time February 01, 2023 10:24am [facility] [address] [place] [address] Physiatry (Rehab) H&P Signed with Addenda Patient: Kiki Moore MR#: [id number] : 1945 Acct:[id number] Age/Sex: 78 / F Adm Date: 3 Loc: Room: 8A5420-1 Type: ADM IN Attending Dr: Syd Muir MD Copies to: TRAY Cota MD NO FAMILY PHYSICIAN~ ADDENDUM1 Etiology of knee replacement secondary to rheumatoid arthritis. Admitted on antibiotics to cover for surgical site infection at the affected knee. Addendum Documented By: Syd Muir MD 02/06/23 1222 Addendum Signed By: <Electronically signed by Syd Muir MD> 02/06/23 1222 <Sofya Petit APRN - Last Filed: 02/01/23 11:20> Date of Service: 02/01/2023 HPI <Sofya Petit APRN - Last Filed: 02/01/23 11:20> The patient was seen and examined on: 02/01/23 History of Present Illness: Ms. Moore is a 78 year old female presenting to acute rehab as a transfer from [facility]. 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 Patient reports a history of multiple previous joint surgeries including hip andknee revisions. Left knee has been bothering her for quite some time. She reports numerous steroid injections and other conservative treatment measures prior to surgery which were not effective. She has not underwent elective left total knee on 01/17/[address] [facility]. Placed on Xarelto for DVT prophylaxis postop. There is limited information available regarding the procedure and postoperative course as the chart is incomplete. Per patient there was no significant complication postoperatively; she was recommended rehabilitation and was admitted to a skilled facility for PT/OT. While at SNF, she developed left knee swelling, pain and incisional drainage and was subsequently placed on p.o. levofloxacin. Unfortunately, patient failed to demonstrate expected functional progress prompting her family to request a transfer to IRF for a more intense rehab therapy. On admission she reports continued left knee pain. The joint is somewhat edematous, erythematous and warm to touch. There was scant amount of serous drainage on the dressing. The incision is well approximated without visible dehiscence. Patient is also complaining of upset stomach and constipation. She does have active bowel sounds in all 4 quadrants and denies nausea, although admits to poor appetite. She did receive a dose of prn laxative this morning. Otherwise, offers no acute complaints or concerns. Cardiopulmonary status within normal limits. No neurological symptoms. Vitals are within normal limits. Patient was notified of recent lab values including low H&H and is agreeable to a blood transfusion. <Syd Muir MD - Last Filed: 02/01/23 11:55> Etiologic Diagnosis/Impairment Group: total knee PMFSH <Sofya Petit APRN - Last Filed: 02/01/23 11:20> Medical History (Updated 02/01/23 @ 11:17 by Sofya Petit APRN) Anemia CVA (cerebral vascular accident) DVT (deep venous thrombosis) Glaucoma Hypertension Lumbar stenosis Osteoarthritis Pulmonary hypertension Renal failure Rheumatoid arthritis Social History Smoking Status: Never smoker Substance Use Type: None Review of Systems <Sofya Petit APRN - Last Filed: 02/01/23 11:20> Review of Systems All other systems reviewed & are negative unless noted below or in HPI Meds <Sofya Petit APRN - Last Filed: 02/01/23 11:20> Medications and Allergies Allergies celecoxib [From Celebrex] Allergy (Verified 01/31/23 15:04) Hives gabapentin Allergy (Verified 01/31/23 15:04) Weakness rofecoxib [From Vioxx] Allergy (Verified 01/31/23 15:04) Dry Mucus Membranes Home and Active Meds: Active Medications Acetaminophen (Acetaminophen 500 Mg Tablet) 500 mg PO Q4H PRN PRN Reason: Pain Stop: 01/31/24 14:11 Al Hydrox/Mg Hydrox/Simethicone (Mag Hydrox/Al Hydrox/Simeth 30 Ml Udc) 30 ml PO Q4H PRN PRN Reason: Indigestion Stop: 01/31/24 14:11 Aspirin (Aspirin 81 Mg Tab.Chew) 81 mg PO DAILY BERTRAND Stop: 02/01/24 08:59 Last Admin: 02/01/23 09:21 Dose: 81 mg Atorvastatin Calcium (Atorvastatin 40 Mg Tablet) 40 mg PO QPM BERTRAND Stop: 01/31/24 20:59 Last Admin: 01/31/23 21:37 Dose: 40 mg Bisacodyl (Bisacodyl 10 Mg Supp.Rect) 10 mg IL DAILY PRN PRN Reason: Constipation Stop: 01/31/24 14:11 Brimonidine Tartrate (Brimonidine 0.15% Op Soln 100 Drops/5 Ml Drops) 1 drops EYE-BOTH DAILY BERTRAND Stop: 02/01/24 08:59 Last Admin: 02/01/23 09:21 Dose: 1 drops Docusate Sodium (Docusate 100 Mg Capsule) 100 mg PO BID PRN PRN Reason: Constipation Stop: 01/31/24 14:11 Last Admin: 01/31/23 18:42 Dose: 100 mg Docusate Sodium (Docusate Enema 283 Mg/5 Ml Enema) 283 mg IL DAILY PRN PRN Reason: Constipation Stop: 01/31/24 14:11 Folic Acid (Folic Acid 1 Mg Tablet) 1 mg PO FR@0900 BERTRAND Stop: 02/03/24 08:59 Furosemide (Furosemide 20 Mg Tablet) 20 mg PO DAILY.8A BERTRAND Stop: 02/01/24 07:59 Last Admin: 02/01/23 09:21 Dose: 20 mg Hydroxychloroquine Sulfate (Hydroxychloroquine Sulfate 200 Mg Tablet) 200 mg POBID BERTRAND Stop: 01/31/24 20:59 Last Admin: 02/01/23 09:21 Dose: 200 mg Sodium Chloride (0.9 % Sodium Chloride) 500 mls @ 20 mls/hr IV PROTOCOL PRN PRN Reason: BLOOD TRANSFUSION Stop: 02/02/23 09:01 Lactulose (Lactulose 20 Gm/30 Ml Udc) 30 gm PO DAILY PRN PRN Reason: Constipation Stop: 01/31/24 14:11 Last Admin: 02/01/23 09:21 Dose: 30 gm Latanoprost (Latanoprost 0.005% Op Soln 50 Drops/2.5 Ml Bottle) 1 drops EYE-BOTH QPM [facility] Stop: 01/31/24 20:59 Last Admin: 01/31/23 20:05 Dose: 1 drops Levofloxacin (Levofloxacin 750 Mg Tablet) 750 mg PO DAILY [facility] Stop: 02/05/23 09:00 Lisinopril (Lisinopril 40 Mg Tablet) 40 mg PO DAILY [facility] Stop: 02/01/24 08:59 Last Admin: 02/01/23 09:21 Dose: 40 mg Ondansetron HCl (Ondansetron Odt 4 Mg Tab.Rapdis) 4 mg PO Q4HR PRN PRN Reason: Nausea And Vomiting Stop: 01/31/24 14:51 Oxycodone HCl (Oxycodone Ir 5 Mg Tablet) 5 mg PO Q6HR PRN PRN Reason: Severe Pain Last Admin: 02/01/23 09:33 Dose: 5 mg Prednisone (Prednisone 5 Mg Tablet) 5 mg PO DAILY PRN PRN Reason: arthritis pain Stop: 02/01/24 08:59 Sennosides (Sennosides 8.6 Mg Tablet) 2 tab PO DAILY@12 PRN PRN Reason: If no BM in 2 days Stop: 02/01/24 11:59 Sodium Chloride (Sodium Chloride 0.9 % 10 Ml Syringe) 0 ml IV-PUSH PRN PRN PRN Reason: Flush Stop: 01/31/24 14:11 Vitamin D (Cholecalciferol 25 Mcg (1,000 Units) Tablet) 50 mcg PO DAILY [facility] Stop: 02/01/24 08:59 Last Admin: 02/01/23 09:21 Dose: 50 mcg Exam <Sofya Petit APRN - Last Filed: 02/01/23 11:20> Physical Exam Vital Signs: Temp Pulse Resp BP Pulse Ox O2 Del Method 98.3 F 75 16 132/89 96 Room Air 02/01/23 08:00 02/01/23 08:00 02/01/23 08:00 02/01/23 08:00 02/01/23 08:00 02/01/23 08:00 Narrative: General: Awake, alert, oriented x3 HENT: Normal to inspection, normocephalic, atraumatic Eyes: PERRL, normal conjunctiva and sclera Neck: Normal ROM, normal visual inspection. Trachea midline. Cardio: Regular heart rate then rhythm Respiratory: Clear to auscultation bilaterally. Normal respiratory effort. No respiratory distress. GI: Abdomen soft, nontender, nondistended, active bowel sounds x4 quadrants Neuro: CN II-XII intact. Strength 5/5, equal bilaterally Extremities: Left knee edema and erythema. It is tender to touch there is some serous drainage on the dressing. TKA incision is well approximated without signs of dehiscence. Psych: Mood and affect appropriate. Normal speech. Results <Sofya Petit APRN - Last Filed: 02/01/23 11:20> Labs Labs: Laboratory Results - last 24 hr 02/01/23 06:21 PHA Creatinine Clear 39.13 Sodium 131 L Potassium 4.4 Chloride 99 Carbon Dioxide 26.4 Anion Gap 10.0 BUN 17 Creatinine 1.16 Est GFR (CKD-EPI) 48.558 Glucose 94 Calcium 8.4 L Total Bilirubin 0.8 AST 24 ALT 14 Alkaline Phosphatase 100 Total Protein 5.2 L Albumin 3.3 L Globulin 1.9 Albumin/Globulin Ratio 1.7 Prealbumin 14.7 L Additional Results Results Comment: I reviewed clinical lab tests, radiology reports and obtained and summated medical records and have ordered follow up lab tests and imaging studies as needed for rehabilitation care. Functional Status <Sofya Petit APRN - Last Filed: 02/01/23 11:20> Prior Level of Function Narrative: Previously independent. Ambulates with a walker. Lives alone Current Level of Function Narrative: Requires mod assist for toileting, transfers. Up In parallel bars with contact- guard assist. <Syd Muir MD - Last Filed: 02/01/23 11:55> Individualized Plan of Care Plan of Care: Individualized Overall Plan of Care: Admit Date/Time: January 31, 2023 Expected LOS: 14 days Expected Discharge Destination: Home Rehabilitation [facility]: Primary Diagnosis: Total knee arthroplasty Patient?s/Family?s anticipated outcomes/personal goals: To have patient become more independent and to return home. Medical/ Functional Prognosis: Good Anticipated Functional Outcomes/Goals and Interventions: -Therapy Functional Outcome/Goal: Mobility/Locomotion: Patient likely to be independent with ambulation with assistive device. Anticipated interventions: Physician management, PT, OT, Dietitian, Rehab Nursing - Therapy Functional Outcome/Goal: Self Care: Patient likely to be functionally independent for activities of daily living using assistive / adaptive equipment as needed. Anticipated interventions: Physician management, PT, OT, Dietitian, Rehab Nursing - Therapy Functional Outcome/Goal: Bladder/Bowel Management: Patient likely to be independent with bladder care and independent with bowel care. Anticipated interventions: Physician management, PT, OT, Dietitian, Rehab Nursing -Therapy Functional Outcome/Goal: Communication/Cognition: Patient will be able to communicate fully and be safe cognitively. Anticipated interventions: Physician management, PT, OT, Dietitian, Rehab Nursing -Therapy Functional Outcome/Goal: Patient will be independent for bed mobility and transfers Anticipated interventions: Physician management, PT, OT, Dietitian, Rehab Nursing -Therapy Functional Outcome/Goal: Patient will improve endurance to be able to tolerate all daily self care activities and avocational activities. Anticipated interventions: Physician management, PT, OT, Nutrition, Rehab Nursing -Therapy Functional Outcome/Goal: Patient will understand and assimilate / integrate education regarding management of their medical conditions to maintainhealth and wellbeing. Anticipated interventions: Physician management, PT, OT, Dietitian, Rehab Nursing Required Therapy PT: 1.5 hour per day at least 5 days per week with additional therapy on as needed basis. Comments: PT to improve pt's strength, endurance, bed mobility, transfers (sit-stand), standing balance, gait quality on level surfaces and stairs, coordination and functional ADL skills. Will also work to improve pt's safety awareness during transfers and ambulation. OT: 1.5 hour per day at least 5 days per week with additional therapy on as needed basis. Comments: OT for basic ADL re-training (bathing, dressing, toileting, continence, grooming, feeding, transferring), to increase activity tolerance andfunctional mobility and to evaluate for adaptive and assistive devices. Will work to improve pt's endurance and educate pt on fall prevention and energy conservation techniques-pacing strategies and proper breathing techniques duringfunctional tasks. Other: Nutrition, Rehab nursing, Wound, P&O RATIONALE FOR IRF ADMISSION: Patient has both medical and functional complexities that require 24 hour daily monitoring and intervention from [facility] [employer] as well as other consulting physicians including internal medicine as well as 24 hour daily water project engineer nursing - for medical safe / optimal management. Patient requires interdisciplinary therapy team rehabilitation care including OT, PT, SW, Rehab Nursing, requires and can tolerate at least 3 hoursof daily OT and PT therapy at least 5 days weekly. The following medical conditions significantly impact the rehabilitation process and are being addressed daily and can not be managed at home or in a lesser intense medical setting: Refer to above problem oriented plan of care Assessment/Plan <Sofya Petit, SCIENCES DEAN - Last Filed: 02/01/23 11:20> (1) Impaired mobility and activities of daily living: Code(s): Z74.09 - Other reduced mobility; Z78.9 - Other specified health status Status: Acute (2) CKD (chronic kidney disease): Code(s): N18.9 - Chronic kidney disease, unspecified Status: Acute (3) S/P total knee arthroplasty: Code(s): Z96.659 - Presence of unspecified artificial knee joint Status: Acute (4) Pulmonary hypertension: Code(s): I27.20 - Pulmonary hypertension, unspecified Status: Acute (5) Anemia: Code(s): D64.9 - Anemia, unspecified Status: Acute (6) Hypertension: Code(s): I10 - Essential (primary) hypertension Status: Acute (7) Rheumatoid arthritis: Code(s): M06.9 - Rheumatoid arthritis, unspecified Status: Acute (8) Chronic back pain: Code(s): M54.9 - Dorsalgia, unspecified; G89.29 - Other chronic pain Status: Acute Plan Needs 8-year-old female with extensive past medical history presenting to acute inpatient rehabilitation unit with functional limitation secondary to left totalknee arthroplasty on 01/17/2023. [facility] but failed to improve functionally and was transferred to us. * H&H critically low at 6.6/19.4. Patient will receive 2 units of PRBCs today. Repeat CBC tomorrow AM. * Placed on Xarelto postoperatively for DVT prophylaxis. Hold for now until blood counts are stable. * Operative knee is edematous, erythematous, warm to touch, with some incisional drainage. Will obtain a x-ray to rule out acute process. Continue levofloxacin through 02/05/2023. Consult orthopedic surgery if necessary. * Ice, elevate, compress the operative extremity to reduce the swelling. * Intensify bowel regimen. Patient education Pressure ulcer prophylaxis; encourage mobilization, frequent postural changes, pressure-relief techniques DVT prophylaxis: Resume Xarelto when blood counts are stable. Encourage deep breathing exercise incentive spirometry. Monitor bladder. Toileting schedule. Continue current bladder management, with scans as needed and CIC if needed. Start bowel care program every day to obtain continence, prevent ileus. Maintain fall precautions Gait and balance retraining Functional training and self-care and home management, including activities of daily living and instrumental activities of daily living Provision of the necessary gait aids and functional adaptive equipment to enhance the patient's a functional buddhist Ensure adequate nutrition and hydration Sleep: No concerns Pain: Continue current regimen Discharge planning: Hopefully home in a week or two. I spent greater than 45 minutes for services, including [id number] encounter with the patient, discussion of the case, plan of care, and exam; and [id number] activities, such as reviewing pertinent industrial methods consultant documentation, recent therapy notes, laboratory and radiology studies, and discussion of case with care team including physician, nursing, employment case manager, and therapists. More than 50 % of time was spent on patient/family counseling or coordination ofcare. <Syd Muir MD - Last Filed: 02/01/23 11:55> (1) Impaired mobility and activities of daily living: (2) CKD (chronic kidney disease): (3) S/P total knee arthroplasty: (4) Pulmonary hypertension: (5) Anemia: (6) Hypertension: (7) Rheumatoid arthritis: (8) Chronic back pain: Plan: I completed a substantive portion of this encounter, the medical decision makingportion of this note in its entirety, including Allied health note review, nursing note review, industrial methods consultant note review, discussion with nursing and case management, and more than 50% of my time was spent on counseling and coordination of care, time spent -75 minutes Patient was personally seen by me, Dr. Muir, on the day of encounter, reviewed the history and the relevant portions of the chart, including current orders, allied health and industrial methods consultant notes, labs/imaging and performed carranza elements of exam and I formulated the plan of care and facilitated the medical decision making. Documented By: Sofya Petit APRN 02/01/23 1 016 Signed By: <Electronically signed by TRAY Petit> 02/01/23 1120 <Electronically signed by Syd Muir MD> 02/01/23 1154 [facility] Work Phone: 1(673) 798-143809-15-2023 Progress note Author Brennan Bucio [facility] February 03, 2023 1:59pm Note Date/Time February 03, 2023 1:58pm [facility] [address] [place] [address] Physiatry(Rehab) Progress Note Signed Patient: Kiki Moore MR#: [id number] : 1945 Acct:[id number] Age/Sex: 78 / F Adm Date: 3 Loc: Room: 2I3542-4 Type: ADM IN Attending Dr: Syd Muir MD Copies to: ~ Date of Service: 02/03/2023 Subjective Subjective Narrative: Ms. Moore is a 78 year old female presenting to acute rehab as a transfer from [facility]. 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 Patient reports a history of multiple previous joint surgeries including hip andknee revisions. Left knee has been bothering her for quite some time. She reports numerous steroid injections and other conservative treatment measures prior to surgery which were not effective. She has not underwent elective left total knee on 01/17/[address] [facility]. Placed on Xarelto for DVT prophylaxis postop. There is limited information available regarding the procedure and postoperative course as the chart is incomplete. Per patient there was no significant complication postoperatively; she was recommended rehabilitation and was admitted to a skilled facility for PT/OT. While at SNF, she developed left knee swelling, pain and incisional drainage and was subsequently placed on p.o. levofloxacin. Unfortunately, patient failed to demonstrate expected functional progress prompting her family to request a transfer to IRF for a more intense rehab therapy. On admission she reports continued left knee pain. The joint is somewhat edematous, erythematous and warm to touch. There was scant amount of serous drainage on the dressing. The incision is well approximated without visible dehiscence. Patient is also complaining of upset stomach and constipation. She does have active bowel sounds in all 4 quadrants and denies nausea, although admits to poor appetite. She did receive a dose of prn laxative this morning. Otherwise, offers no acute complaints or concerns. Cardiopulmonary status within normal limits. No neurological symptoms. Vitals are within normal limits. Patient was notified of recent lab values including low H&H and is agreeable to a blood transfusion. Interval history: Patient seen and examined in the therapy gym. Appears in no distress today. Is s/p 2 units PRBCs with improvement in Hgb. She admits to some pain in her left knee but states that this is improving. Slight swelling as well which is also improving. She denies abdominal pain but feels slightly constipated. Is passing gas. Tolerating therapy well. Review of Systems Review of Systems All other systems reviewed & are negative unless noted below or in HPI Exam Physical Exam Vital Signs: Temp Pulse Resp BP Pulse Ox O2 Del Method 97.9 F 68 16 118/57 L 96 Room Air 02/03/23 11:02/03/23 11:02/03/23 11:02/03/23 11:02/03/23 11:02/03/23 11:00 Narrative: General: Awake, A&O x 3, pleasant, cooperative, well nourished. Resting comfortably in wheelchair. HENT: NC, AT Eyes: No scleral icterus Neck: Supple Cardio: RRR, no murmurs, rubs or gallops Respiratory: CTAB, no wheezes rhonchi or rales. No evidence of respiratory distress GI: Soft, nontender, nondistended, bowel sounds normal in all 4 quadrants Neuro: CN II-XII intact. Strength 5/5 right upper and lower extremities. Strength 5/5 left upper and lower extremities. Sensation intact bilateral lowerextremities. Extremities: No erythema, cyanosis. Noted edema in LLE Psych: Affect, speech and movements normal. Mood congruent Objective Labs 02/03/23 06:13 02/02/23 05:54 Labs: Laboratory Results - last 24 hr 02/01/23 02/02/23 02/03/23 10:10 05:54 06:13 Corrected WBC 6.7 Uncorrected WBC Count 6.7 RBC 2.73 L Hgb 9.4 L Hct 26.9 L MCV 98.5 MCH 34.3 MCHC 34.9 RDW 15.0 Plt Count 259 MPV 6.8 Neut % (Auto) 65.2 Lymph % (Auto) 18.6 [place] % (Auto) 12.3 Eos % (Auto) 3.4 Baso % (Auto) 0.5 Nucleat RBC Rel Count 0.1 Neut # (Auto) 4.4 Lymph # (Auto) 1.2 [place] # (Auto) 0.8 Eos # (Auto) 0.2 Baso # (Auto) 0.0 Lactate Dehydrogenase 282 H Blood Type A Positive Antibody Screen Positive Antibody Identification HTLA Antibodies BERTHA, Polyspecific Negative Crossmatch (AHG) See Detail Pathology Review Sent to pathology Medications and Allergies Allergies and Active Meds: Allergies celecoxib [From Celebrex] Allergy (Verified 01/31/23 15:04) Hives gabapentin Allergy (Verified 01/31/23 15:04) Weakness rofecoxib [From Vioxx] Allergy (Verified 01/31/23 15:04) Dry Mucus Membranes Active Medications Generic Name Dose Route Start Last Admin Trade Name Freq PRN Reason Stop Dose Admin Acetaminophen 500 mg 01/31/23 14:12 02/02/23 09:03 Acetaminophen 500 Mg Tablet PO 01/31/24 14:11 500 mg Q4H PRN Administration Pain Al Hydrox/Mg Hydrox/Simethicone 30 ml 01/31/23 14:12 Mag Hydrox/Al Hydrox/Simeth 30 Ml Udc PO 01/31/24 14:11 Q4H PRN Indigestion Aspirin 81 mg 02/01/23 09:00 02/03/23 09:43 Aspirin 81 Mg Tab.Chew PO 02/01/24 08:59 81 mg DAILY BERTRAND Administration Atorvastatin Calcium 40 mg 01/31/23 21:00 02/02/23 20:49 Atorvastatin 40 Mg Tablet PO 01/31/24 20:59 40 mg QPM BERTRAND Administration Bisacodyl 10 mg 01/31/23 14:12 Bisacodyl 10 Mg Supp.Rect IL 01/31/24 14:11 DAILY PRN Constipation Brimonidine Tartrate 1 drops 02/01/23 09:00 02/03/23 09:45 Brimonidine 0.15% Op Soln 100 Drops/5 Ml Drops EYE-BOTH 02/01/24 08:59 1 drops DAILY BERTRAND Administration Docusate Sodium 283 mg 01/31/23 14:12 Docusate Enema 283 Mg/5 Ml Enema IL 01/31/24 14:11 DAILY PRN Constipation Docusate Sodium 100 mg 02/01/23 21:00 02/03/23 09:43 Docusate 100 Mg Capsule PO 02/01/24 20:59 100 mg BID BERTRAND Administration Ferrous Sulfate 324 mg 02/06/23 09:00 Ferrous Sulfate 324 Mg Tablet.Dr PO 02/06/24 08:59 BID BERTRAND Folic Acid 1 mg 02/03/23 09:00 02/03/23 09:44 Folic Acid 1 Mg Tablet PO 02/03/24 08:59 1 mg FR@0900 BERTRAND Administration Furosemide 20 mg 02/01/23 08:00 02/02/23 09:01 Furosemide 20 Mg Tablet PO 02/01/24 07:59 20 mg DAILY.8A BERTRAND Administration Hydroxychloroquine Sulfate 200 mg 01/31/23 21:00 02/03/23 09:44 Hydroxychloroquine Sulfate 200 Mg Tablet PO 01/31/24 20:59 200 mg BID BERTRAND Administration Ferric Sodium Gluconate 270 mls @ 135 mls/hr 02/02/23 09:50 02/03/23 11:21 Complex 250 mg/ Sodium IV 02/04/23 09:01 Infused Chloride QAM BERTRAND Infusion Lactulose 30 gm 01/31/23 14:12 02/01/23 09:21 Lactulose 20 Gm/30 Ml Udc PO 01/31/24 14:11 30 gm DAILY PRN Administration Constipation Latanoprost 1 drops 01/31/23 21:00 02/02/23 20:50 Latanoprost 0.005% Op Soln 50 Drops/2.5 Ml Bottle EYE-BOTH 01/31/24 20:59 1drops QPM BERTRAND Administration Levofloxacin 750 mg 02/01/23 10:30 02/03/23 11:43 Levofloxacin 750 Mg Tablet PO 02/05/23 10:30 750 mg Q48H BERTRAND Administration Lisinopril 10 mg 02/04/23 09:00 Lisinopril 10 Mg Tablet PO 02/04/24 08:59 DAILY BERTRAND Ondansetron HCl 4 mg 01/31/23 14:52 02/02/23 08:59 Ondansetron Odt 4 Mg Tab.Rapdis PO 01/31/24 14:51 4 mg Q4HR PRN Administration Nausea And Vomiting Oxycodone HCl 10 mg 02/02/23 09:10 02/03/23 09:43 Oxycodone Ir 5 Mg Tablet PO 10 mg Q4HR PRN Administration Pain Scale 8 - 10 Oxycodone HCl 5 mg 02/02/23 09:52 Oxycodone Ir 5 Mg Tablet PO Q4HR PRN Pain Scale 4 - 7 Pantoprazole Sodium 40 mg 02/02/23 10:00 02/03/23 09:44 Pantoprazole 40 Mg Tablet. PO 02/02/24 09:59 40 mg DAILY BERTRAND Administration Prednisone 5 mg 01/31/23 14:50 Prednisone 5 Mg Tablet PO 02/01/24 08:59 DAILY PRN arthritis pain Sennosides 2 tab 02/01/23 12:00 Sennosides 8.6 Mg Tablet PO 02/01/24 11:59 DAILY@12 PRN If no BM in 2 days Sodium Chloride 0 ml 01/31/23 14:12 02/02/23 12:11 Sodium Chloride 0.9 % 10 Ml Syringe IV-PUSH 01/31/24 14:11 10 ml PRN PRN Administration Flush Sodium Chloride 10 ml 02/02/23 06:00 02/03/23 05:38 Sodium Chloride 0.9 % 10 Ml Syringe IV-PUSH 02/02/24 05:59 10 ml Q8H BERTRAND Administration Vitamin D 50 mcg 02/01/23 09:00 02/03/23 09:43 Cholecalciferol 25 Mcg (1,000 Units) Tablet PO 02/01/24 08:59 50 mcg DAILY BERTRAND Administration Assessment/Plan Assessment/Plan (1) Impaired mobility and activities of daily living: Code(s): Z74.09 - Other reduced mobility; Z78.9 - Other specified health status Status: Acute (2) CKD (chronic kidney disease): Code(s): N18.9 - Chronic kidney disease, unspecified Status: Acute (3) S/P total knee arthroplasty: Code(s): Z96.659 - Presence of unspecified artificial knee joint Status: Acute (4) Pulmonary hypertension: Code(s): I27.20 - Pulmonary hypertension, unspecified Status: Acute (5) Anemia: Code(s): D64.9 - Anemia, unspecified Status: Acute (6) Hypertension: Code(s): I10 - Essential (primary) hypertension Status: Acute (7) Rheumatoid arthritis: Code(s): M06.9 - Rheumatoid arthritis, unspecified Status: Acute (8) Chronic back pain: Code(s): M54.9 - Dorsalgia, unspecified; G89.29 - Other chronic pain Status: Acute Plan Needs 8-year-old female with extensive past medical history presenting to acute inpatient rehabilitation unit with functional limitation secondary to left totalknee arthroplasty on 01/17/2023. [facility] jail facility but failed to improve functionally and was transferred to us. * Hgb improved to 9.4. Continue to monitor. * Continue to hold Xarelto until H&H are stable. Will recheck H&H tomorrow and if stable can resume * Left knee x-ray reviewed. Demonstrates satisfactory appearance of knee replacement without complication and a small knee effusion. Continue supportive treatment. Patient education Pressure ulcer prophylaxis; encourage mobilization, frequent postural changes, pressure-relief techniques DVT prophylaxis: Resume Xarelto when blood counts are stable. Encourage deep breathing exercise incentive spirometry. Monitor bladder. Toileting schedule. Continue current bladder management, with scans as needed and CIC if needed. Start bowel care program every day to obtain continence, prevent ileus. Maintain fall precautions Gait and balance retraining Functional training and self-care and home management, including activities of daily living and instrumental activities of daily living Provision of the necessary gait aids and functional adaptive equipment to enhance the patient's a functional buddhist Ensure adequate nutrition and hydration Sleep: No concerns Pain: Continue current regimen Discharge planning: Hopefully home in a week or two. Plan: I completed a substantive portion of this encounter, the medical decision makingportion of this note in its entirety, including Allied health note review, nursing note review, industrial methods consultant note review, discussion with nursing and case management, and more than 50% of my time was spent on counseling and coordination of care, time spent 25 minutes Patient was personally seen by me, Dr. Bucoi, on the day of encounter, reviewed the history and the relevant portions of the chart, including current orders, allied health and industrial methods consultant notes, labs/imaging and performed carranza elements of exam and I formulated the plan of care and facilitated the medical decision making. Documented By: Brennan Bucio MD [id number] Signed By: <Electronically signed by Brennan Bucio MD> 02/03/23 0226 [facility] Work Phone: [phone]) [phone] Progress note Author Will Brown [facility] February 03, 2023 12:51pm Note Date/Time February 03, 2023 12:51pm [facility] [address] [place] [address] Hospitalist Progress Note Signed Patient: Kiki Moore MR#: [id number] : 1945 Acct:[id number] Age/Sex: 78 / F Adm Date: 3 Loc: Room: [address] [place] [address] Type: ADM IN Attending Dr: Syd Muir MD Copies to: ~ Date of Service: 02/03/2023 Subjective Subjective Narrative: This is a 78-year-old male past medical history significant for CVA, history DVT, anemia, glaucoma, hypertension, rheumatoid arthritis, pulmonary hypertension, CKD, multiple previous joint surgeries including hip and knee revisions. Presents transferred to the acute inpatient rehab unit from [facility]. The patient recently underwent left total knee January [address] [facility]. While at jail facility she developed left knee swelling and pain requiring as well as incisional drainage, levofloxacin was initiated. Patient was transferred to [facility] rehab January 31 after familyrequested transfer to inpatient rehab facility for more intense therapy. Hospitalist team is now consulted for ongoing management of hypertension. Patient seen and examined. She endorses postoperative left knee pain as anticipated, intermittent back pain that is chronic. Denies chest pain or palpitations. No cough, dyspnea, or pain with inspiration. No abdominal pain or indigestion, diarrhea, nausea or vomiting. Constipation is endorsed, as needed laxatives are being administered per PMR team. Intake reported fair. Nodysuria or retention. No headache or dizziness. No fevers or chills. 02/03: Uneventful night. Patient is sitting in wheelchair. No chest pain or palpitation. No abdominal pain. Exam Physical Exam Vital Signs: Temp Pulse Resp BP Pulse Ox O2 Del Method 97.9 F 68 16 118/57 L 96 Room Air 02/03/23 11:00 02/03/23 11:00 02/03/23 11:02/03/23 11:00 02/03/23 11:00 02/03/23 11:00 Narrative: CONST- alert, in bed, no acute distress HEAD- normocephalic and atraumatic EENT- sclera nonicteric and conjunctiva nonerythemic, moist oral mucosa, pharynxclear NECK- supple, no cervical lymphadenopathy CARDIAC- RRR no abnormal heart tones PULM- diminished without wheeze or rhonchi, RA, no accessory muscle use or coughnoted ABD- S/NT, NABS EXTREM- no edema RLE, calves nontender, left knee/lower extremity with 1+ edema LLE mild warmth around the knee SKIN- W/D, good turgor, left knee incision well approximated with small amount of serous dressing drainage and mildly erythematous, no unusual large area of ecchymosis or bruising MS- MAEx4 spontaneously with equal strength NEURO- A&Ox3, speech clear and tongue midline, equal facial symmetry PSYCH-mood and behavior appropriate Objective Lab Results 02/03/23 06:13 02/02/23 05:54 Meds Allergies and Active Meds Allergies celecoxib [From Celebrex] Allergy (Verified 01/31/23 15:04) Hives gabapentin Allergy (Verified 01/31/23 15:04) Weakness rofecoxib [From Vioxx] Allergy (Verified 01/31/23 15:04) Dry Mucus Membranes Active Meds: Active Medications Generic Name Dose Route Start Last Admin Trade Name Freq PRN Reason Stop Dose Admin Acetaminophen 500 mg 01/31/23 14:12 02/02/23 09:03 Acetaminophen 500 Mg Tablet PO 01/31/24 14:11 500 mg Q4H PRN Administration Pain Al Hydrox/Mg Hydrox/Simethicone 30 ml 01/31/23 14:12 Mag Hydrox/Al Hydrox/Simeth 30 Ml Udc PO 01/31/24 14:11 Q4H PRN Indigestion Aspirin 81 mg 02/01/23 09:00 02/03/23 09:43 Aspirin 81 Mg Tab.Chew PO 02/01/24 08:59 81 mg DAILY BERTRAND Administration Atorvastatin Calcium 40 mg 01/31/23 21:00 02/02/23 20:49 Atorvastatin 40 Mg Tablet PO 01/31/24 20:59 40 mg QPM BERTRAND Administration Bisacodyl 10 mg 01/31/23 14:12 Bisacodyl 10 Mg Supp.Rect IL 01/31/24 14:11 DAILY PRN Constipation Brimonidine Tartrate 1 drops 02/01/23 09:00 02/03/23 09:45 Brimonidine 0.15% Op Soln 100 Drops/5 Ml Drops EYE-BOTH 02/01/24 08:59 1 drops DAILY BERTRAND Administration Docusate Sodium 283 mg 01/31/23 14:12 Docusate Enema 283 Mg/5 Ml Enema IL 01/31/24 14:11 DAILY PRN Constipation Docusate Sodium 100 mg 02/01/23 21:00 02/03/23 09:43 Docusate 100 Mg Capsule PO 02/01/24 20:59 100 mg BID BERTRAND Administration Ferrous Sulfate 324 mg 02/06/23 09:00 Ferrous Sulfate 324 Mg Tablet. PO 02/06/24 08:59 BID BERTRAND Folic Acid 1 mg 02/03/23 09:00 02/03/23 09:44 Folic Acid 1 Mg Tablet PO 02/03/24 08:59 1 mg FR@0900 BERTRAND Administration Furosemide 20 mg 02/01/23 08:00 02/02/23 09:01 Furosemide 20 Mg Tablet PO 02/01/24 07:59 20 mg DAILY.8A BERTRAND Administration Hydroxychloroquine Sulfate 200 mg 01/31/23 21:00 02/03/23 09:44 Hydroxychloroquine Sulfate 200 Mg Tablet PO 01/31/24 20:59 200 mg BID BERTRAND Administration Ferric Sodium Gluconate 270 mls @ 135 mls/hr 02/02/23 09:50 02/03/23 11:21 Complex 250 mg/ Sodium IV 02/04/23 09:01 Infused Chloride QAM [facility] Infusion Lactulose 30 gm 01/31/23 14:12 02/01/23 09:21 Lactulose 20 Gm/30 Ml Udc PO 01/31/24 14:11 30 gm DAILY PRN Administration Constipation Latanoprost 1 drops 01/31/23 21:00 02/02/23 20:50 Latanoprost 0.005% Op Soln 50 Drops/2.5 Ml Bottle EYE-BOTH 01/31/24 20:59 1drops QPM BERTRAND Administration Levofloxacin 750 mg 02/01/23 10:30 02/03/23 11:43 Levofloxacin 750 Mg Tablet PO 02/05/23 10:30 750 mg Q48H BERTRAND Administration Lisinopril 10 mg 02/04/23 09:00 Lisinopril 10 Mg Tablet PO 02/04/24 08:59 DAILY BERTRAND Ondansetron HCl 4 mg 01/31/23 14:52 02/02/23 08:59 Ondansetron Odt 4 Mg Tab.Rapdis PO 01/31/24 14:51 4 mg Q4HR PRN Administration Nausea And Vomiting Oxycodone HCl 10 mg 02/02/23 09:10 02/03/23 09:43 Oxycodone Ir 5 Mg Tablet PO 10 mg Q4HR PRN Administration Pain Scale 8 - 10 Oxycodone HCl 5 mg 02/02/23 09:52 Oxycodone Ir 5 Mg Tablet PO Q4HR PRN Pain Scale 4 - 7 Pantoprazole Sodium 40 mg 02/02/23 10:00 02/03/23 09:44 Pantoprazole 40 Mg Tablet. PO 02/02/24 09:59 40 mg DAILY BERTRAND Administration Prednisone 5 mg 01/31/23 14:50 Prednisone 5 Mg Tablet PO 02/01/24 08:59 DAILY PRN arthritis pain Sennosides 2 tab 02/01/23 12:00 Sennosides 8.6 Mg Tablet PO 02/01/24 11:59 DAILY@12 PRN If no BM in 2 days Sodium Chloride 0 ml 01/31/23 14:12 02/02/23 12:11 Sodium Chloride 0.9 % 10 Ml Syringe IV-PUSH 01/31/24 14:11 10 ml PRN PRN Administration Flush Sodium Chloride 10 ml 02/02/23 06:00 02/03/23 05:38 Sodium Chloride 0.9 % 10 Ml Syringe IV-PUSH 02/02/24 05:59 10 ml Q8H BERTRAND Administration Vitamin D 50 mcg 02/01/23 09:00 02/03/23 09:43 Cholecalciferol 25 Mcg (1,000 Units) Tablet PO 02/01/24 08:59 50 mcg DAILY BERTRAND Administration A&P - Hospitalist Assessment/Plan (1) S/P total knee arthroplasty: (2) Anemia: (3) Hypertension: (4) Hyperlipidemia: (5) Rheumatoid arthritis: (6) Chronic hyponatremia: Plan Knee replacement 01/17/2023 at [facility] Postoperative anemia -Further POC per PMR team for rehabilitative therapy postop, pain control bowel regimen, DVT PPx, surgical wound care -Please address any questions/concerns postoperatively to [facility] orthopedic team -Continue Levaquin as previously ordered through 02/05/2023, continue to monitor wound. -Xarelto was placed on hold by rehab team. I would recommend to resume given her increased risk having DVT which may progress into PE that could be fatal. Anemia. No clinical evidence of acute or massive GI blood loss -PMR team has already status post units of RBC transfusion. Hemoglobin is up to9. Iron studies consistent with iron deficiency. While waiting for blood I would recommend intravenous iron infusion. Also recommend to start patient on PPI in case she is having GI blood oozing. LDH is slightly elevated but haptoglobin is normal. Normal bilirubin. Unlikelyhemolysis No hematemesis or melena. Continue PPI. Repeat CBC in a.m. Hypertension. Blood pressure is on the low side. Reduce her lisinopril dose Chronic conditions 1. HTN, HLD?ASA, atorvastatin, furosemide. Review of outpatient med fills shows recent Rx for Lisinopril 40 but not on med list - monitor BP closely for potential resumption. BP currently controlled 2. Glaucoma?brimonidine, latanoprost 3. RA?hydroxychloroquine, prn prednisone 4. Chronic hyponatremia?review of EMR shows chronic low levels?TSH, serum/urineosmolality, urine sodium, cortisol is normal. Thank you for consulting us to see this pt. I will be off service starting Monday. Case will be handled by one of my partners if needed. Pt is fairly stable at this time. We will follow pt on an as needed basis. Please call or alert hospitalist if pt develops any signs or symptoms that may require medical evaluation and or intervention. Please arrange for pt after discharge follow up appts with PCP and other specialists. I may or may not have addressed all of patient symptoms, abnormal labs and imaging during this hospitalization. Please ask patient to ask PCP and out patient providers to obtain [facility] record entirely to follow up on illnesses, symptoms, abnormal findings that I have and have not addressed duringthis encounter and hospitalization in out patient setting.. Documented By: Will Brown MD 02/03/23 1248 Signed By: <Electronically signed by Will Brown MD> 02/03/23 1251 [facility] Work Phone: 1(527) 426-565309-14-2023 Progress note Author Will Brown [facility] February 02, 2023 9:51am Note Date/Time February 02, 2023 9:51am [facility] [address] [place] [address] Hospitalist Progress Note Signed Patient: Kiki Moore MR#: [id number] : 1945 Acct:[id number] Age/Sex: 78 / F Adm Date: 3 Loc: Room: 7Z3658-5 Type: ADM IN Attending Dr: Syd Muir MD Copies to: ~ Date of Service: 02/02/2023 Subjective Subjective Narrative: This is a 78-year-old male past medical history significant for CVA, history DVT, anemia, glaucoma, hypertension, rheumatoid arthritis, pulmonary hypertension, CKD, multiple previous joint surgeries including hip and knee revisions. Presents transferred to the acute inpatient rehab unit from [facility]. The patient recently underwent left total knee January [address] [facility]. [facility] she developed left knee swelling and pain requiring as well as incisional drainage, levofloxacin was initiated. Patient was transferred to [facility] rehab January 31 after familyrequested transfer to inpatient rehab facility for more intense therapy. Hospitalist team is now consulted for ongoing management of hypertension. Patient seen and examined. She endorses postoperative left knee pain as anticipated, intermittent back pain that is chronic. Denies chest pain or palpitations. No cough, dyspnea, or pain with inspiration. No abdominal pain or indigestion, diarrhea, nausea or vomiting. Constipation is endorsed, as needed laxatives are being administered per PMR team. Intake reported fair. Nodysuria or retention. No headache or dizziness. No fevers or chills. 02/02: Uneventful night. Patient is sitting in the therapy room working with occupational therapy. Patient denies any abdominal pain, chest pain. No hematemesis or melena witnessed. Exam Physical Exam Vital Signs: Temp Pulse Resp BP Pulse Ox O2 Del Method 97.6 F 69 16 123/83 96 Room Air 02/02/23 05:00 02/02/23 05:00 02/02/23 05:00 02/02/23 05:00 02/02/23 05:00 02/02/23 05:00 Narrative: CONST- alert, in bed, no acute distress HEAD- normocephalic and atraumatic EENT- sclera nonicteric and conjunctiva nonerythemic, moist oral mucosa, pharynxclear NECK- supple, no cervical lymphadenopathy CARDIAC- RRR no abnormal heart tones PULM- diminished without wheeze or rhonchi, RA, no accessory muscle use or coughnoted ABD- S/NT, NABS EXTREM- no edema RLE, calves nontender, left knee/lower extremity with 1+ edema LLE mild warmth around the knee SKIN- W/D, good turgor, left knee incision well approximated with small amount of serous dressing drainage and mildly erythematous MS- MAEx4 spontaneously with equal strength NEURO- A&Ox3, speech clear and tongue midline, equal facial symmetry PSYCH-mood and behavior appropriate Objective Lab Results 02/02/23 05:54 02/02/23 05:54 Meds Allergies and Active Meds Allergies celecoxib [From Celebrex] Allergy (Verified 01/31/23 15:04) Hives gabapentin Allergy (Verified 01/31/23 15:04) Weakness rofecoxib [From Vioxx] Allergy (Verified 01/31/23 15:04) Dry Mucus Membranes Active Meds: Active Medications Generic Name Dose Route Start Last Admin Trade Name Freq PRN Reason Stop Dose Admin Acetaminophen 500 mg 01/31/23 14:12 02/02/23 09:03 Acetaminophen 500 Mg Tablet PO 01/31/24 14:11 500 mg Q4H PRN Administration Pain Al Hydrox/Mg Hydrox/Simethicone 30 ml 01/31/23 14:12 Mag Hydrox/Al Hydrox/Simeth 30 Ml Udc PO 01/31/24 14:11 Q4H PRN Indigestion Aspirin 81 mg 02/01/23 09:00 02/02/23 09:01 Aspirin 81 Mg Tab.Chew PO 02/01/24 08:59 81 mg DAILY BERTRAND Administration Atorvastatin Calcium 40 mg 01/31/23 21:00 02/01/23 20:19 Atorvastatin 40 Mg Tablet PO 01/31/24 20:59 40 mg QPM BERTRAND Administration Bisacodyl 10 mg 01/31/23 14:12 Bisacodyl 10 Mg Supp.Rect IL 01/31/24 14:11 DAILY PRN Constipation Brimonidine Tartrate 1 drops 02/01/23 09:00 02/02/23 09:05 Brimonidine 0.15% Op Soln 100 Drops/5 Ml Drops EYE-BOTH 02/01/24 08:59 1 drops DAILY BERTRAND Administration Docusate Sodium 283 mg 01/31/23 14:12 Docusate Enema 283 Mg/5 Ml Enema IL 01/31/24 14:11 DAILY PRN Constipation Docusate Sodium 100 mg 02/01/23 21:00 02/02/23 09:01 Docusate 100 Mg Capsule PO 02/01/24 20:59 100 mg BID BERTRAND Administration Ferrous Sulfate 324 mg 02/02/23 09:15 Ferrous Sulfate 324 Mg Tablet. PO 02/02/24 09:14 BID BERTRAND Folic Acid 1 mg 02/03/23 09:00 Folic Acid 1 Mg Tablet PO 02/03/24 08:59 FR@0900 BERTRAND Furosemide 20 mg 02/01/23 08:00 02/02/23 09:01 Furosemide 20 Mg Tablet PO 02/01/24 07:59 20 mg DAILY.8A BERTRAND Administration Hydroxychloroquine Sulfate 200 mg 01/31/23 21:00 02/02/23 09:01 Hydroxychloroquine Sulfate 200 Mg Tablet PO 01/31/24 20:59 200 mg BID BERTRAND Administration Ferric Sodium Gluconate 270 mls @ 135 mls/hr 02/02/23 09:50 Complex 250 mg/ Sodium IV 02/04/23 09:01 Chloride QAM BERTRAND Lactulose 30 gm 01/31/23 14:12 02/01/23 09:21 Lactulose 20 Gm/30 Ml Udc PO 01/31/24 14:11 30 gm DAILY PRN Administration Constipation Latanoprost 1 drops 01/31/23 21:00 02/01/23 20:16 Latanoprost 0.005% Op Soln 50 Drops/2.5 Ml Bottle EYE-BOTH 01/31/24 20:59 Not Given QPM BERTRAND Levofloxacin 750 mg 02/01/23 10:30 02/01/23 11:00 Levofloxacin 750 Mg Tablet PO 02/05/23 10:30 750 mg Q48H BERTRAND Administration Lisinopril 40 mg 02/01/23 09:00 02/02/23 09:01 Lisinopril 40 Mg Tablet PO 02/01/24 08:59 40 mg DAILY BERTRAND Administration Ondansetron HCl 4 mg 01/31/23 14:52 02/02/23 08:59 Ondansetron Odt 4 Mg Tab.Rapdis PO 01/31/24 14:51 4 mg Q4HR PRN Administration Nausea And Vomiting Oxycodone HCl 5 mg 01/31/23 14:46 02/02/23 05:15 Oxycodone Ir 5 Mg Tablet PO 5 mg Q6HR PRN Administration Severe Pain Oxycodone HCl 10 mg 02/02/23 09:10 Oxycodone Ir 5 Mg Tablet PO Q4HR PRN Pain Scale 8 - 10 Prednisone 5 mg 01/31/23 14:50 Prednisone 5 Mg Tablet PO 02/01/24 08:59 DAILY PRN arthritis pain Sennosides 2 tab 02/01/23 12:00 Sennosides 8.6 Mg Tablet PO 02/01/24 11:59 DAILY@12 PRN If no BM in 2 days Sodium Chloride 0 ml 01/31/23 14:12 Sodium Chloride 0.9 % 10 Ml Syringe IV-PUSH 01/31/24 14:11 PRN PRN Flush Sodium Chloride 10 ml 02/02/23 06:00 02/02/23 05:16 Sodium Chloride 0.9 % 10 Ml Syringe IV-PUSH 02/02/24 05:59 10 ml Q8H BERTRAND Administration Vitamin D 50 mcg 02/01/23 09:00 02/02/23 09:01 Cholecalciferol 25 Mcg (1,000 Units) Tablet PO 02/01/24 08:59 50 mcg DAILY BERTRAND Administration A&P - Hospitalist Assessment/Plan (1) S/P total knee arthroplasty: (2) Anemia: (3) Hypertension: (4) Hyperlipidemia: (5) Rheumatoid arthritis: (6) Chronic hyponatremia: Plan Knee replacement 01/17/2023 at [facility] Postoperative anemia -Further POC per PMR team for rehabilitative therapy postop, pain control bowel regimen, DVT PPx, surgical wound care -Please address any questions/concerns postoperatively to [facility] orthopedic team -Continue Levaquin as previously ordered through 02/05/2023, continue to monitor wound. Anemia. No clinical evidence of acute or massive GI blood loss -PMR team has already ordered transfusion 2units PRBC with Hgb today 6.6, trend labs, patient has antibody. Still waiting on blood to become available. Iron studies consistent with iron deficiency. While waiting for blood I would recommend intravenous iron infusion. Also recommend to start patient on PPI in case she is having GI blood oozing. Also requested LDH, haptoglobin and reticulocyte count to exclude the possibility of hemolysis PMR team has Rivaroxaban on hold as d/w charge nurse Chronic conditions 1. HTN, HLD?ASA, atorvastatin, furosemide. Review of outpatient med fills shows recent Rx for Lisinopril 40 but not on med list - monitor BP closely for potential resumption. BP currently controlled 2. Glaucoma?brimonidine, latanoprost 3. RA?hydroxychloroquine, prn prednisone 4. Chronic hyponatremia?review of EMR shows chronic low levels?TSH, serum/urineosmolality, urine sodium, cortisol in a.m. Documented By: Will Brown MD 02/02/23 0948 Signed By: <Electronically signed by Will Brown MD> 02/02/23 0951 [facility] Work Phone: 1(695) 486-282109-14-2023 Consult note Author Will Brown [facility] February 02, 2023 7:33am Note Date/Time February 01, 2023 1:31pm [facility] [address] [place] [address] Hospitalist Consult Note Signed Patient: Kiki Moore MR#: [id number] : 1945 Acct:[id number] Age/Sex: 78 / F Adm Date: 3 Loc: Room: 5G0612-0 Type: ADM IN Attending Dr: Syd Muir MD Copies to: MD Ivy Restrepo, ANP-[facility] FAMILY PHYSICIAN Will Brown MD~ HPI DATE OF CONSULTATION: 02/01/23 REQUESTING PROVIDER: Syd Muir Consult Narrative Reason for Consult: Hypertension HPI: This is a 78-year-old male past medical history significant for CVA, history DVT, anemia, glaucoma, hypertension, rheumatoid arthritis, pulmonary hypertension, CKD, multiple previous joint surgeries including hip and knee revisions. Presents transferred to the acute inpatient rehab unit from [facility]. The patient recently underwent left total knee January [address] [facility]. [facility] at jail facility she developed left knee swelling and pain requiring as well as incisional drainage, levofloxacin was initiated. Patient was transferred to [facility] rehab January 31 after familyrequested transfer to inpatient rehab facility for more intense therapy. Hospitalist team is now consulted for ongoing management of hypertension. Patient seen and examined. She endorses postoperative left knee pain as anticipated, intermittent back pain that is chronic. Denies chest pain or palpitations. No cough, dyspnea, or pain with inspiration. No abdominal pain or indigestion, diarrhea, nausea or vomiting. Constipation is endorsed, as needed laxatives are being administered per PMR team. Intake reported fair. Nodysuria or retention. No headache or dizziness. No fevers or chills. Review of Systems Review of Systems All other systems reviewed & are negative unless noted below or in HPI [facility] Medical History (Updated 02/01/23 @ 16:09 by Ivy Thomas, ANP-BC) Anemia Chronic hyponatremia CVA (cerebral vascular accident) DVT (deep venous thrombosis) Glaucoma Hyperlipidemia Hypertension Lumbar stenosis Osteoarthritis Pulmonary hypertension Renal failure Rheumatoid arthritis Social History Smoking Status: Never smoker Substance Use Type: None Meds Medications and Allergies Allergies celecoxib [From Celebrex] Allergy (Verified 01/31/23 15:04) Hives gabapentin Allergy (Verified 01/31/23 15:04) Weakness rofecoxib [From Vioxx] Allergy (Verified 01/31/23 15:04) Dry Mucus Membranes Active Medications: Active Medications Generic Name Dose Route Start Last Admin Trade Name Freq PRN Reason Stop Dose Admin Acetaminophen 500 mg 01/31/23 14:12 Acetaminophen 500 Mg Tablet PO 01/31/24 14:11 Q4H PRN Pain Al Hydrox/Mg Hydrox/Simethicone 30 ml 01/31/23 14:12 Mag Hydrox/Al Hydrox/Simeth 30 Ml Udc PO 01/31/24 14:11 Q4H PRN Indigestion Aspirin 81 mg 02/01/23 09:00 02/01/23 09:21 Aspirin 81 Mg Tab.Chew PO 02/01/24 08:59 81 mg DAILY BERTRAND Administration Atorvastatin Calcium 40 mg 01/31/23 21:00 01/31/23 21:37 Atorvastatin 40 Mg Tablet PO 01/31/24 20:59 40 mg QPM BERTRAND Administration Bisacodyl 10 mg 01/31/23 14:12 Bisacodyl 10 Mg Supp.Rect IL 01/31/24 14:11 DAILY PRN Constipation Brimonidine Tartrate 1 drops 02/01/23 09:00 02/01/23 09:21 Brimonidine 0.15% Op Soln 100 Drops/5 Ml Drops EYE-BOTH 02/01/24 08:59 1 drops DAILY BERTRAND Administration Docusate Sodium 283 mg 01/31/23 14:12 Docusate Enema 283 Mg/5 Ml Enema IL 01/31/24 14:11 DAILY PRN Constipation Docusate Sodium 100 mg 02/01/23 21:00 Docusate 100 Mg Capsule PO 02/01/24 20:59 BID BERTRAND Folic Acid 1 mg 02/03/23 09:00 Folic Acid 1 Mg Tablet PO 02/03/24 08:59 FR@0900 BERTRAND Furosemide 20 mg 02/01/23 08:00 02/01/23 09:21 Furosemide 20 Mg Tablet PO 02/01/24 07:59 20 mg DAILY.8A BERTRAND Administration Hydroxychloroquine Sulfate 200 mg 01/31/23 21:00 02/01/23 09:21 Hydroxychloroquine Sulfate 200 Mg Tablet PO 01/31/24 20:59 200 mg BID BERTRAND Administration Sodium Chloride 500 mls @ 20 mls/hr 02/01/23 09:02 0.9 % Sodium Chloride IV 02/02/23 09:01 PROTOCOL PRN BLOOD TRANSFUSION Lactulose 30 gm 01/31/23 14:12 02/01/23 09:21 Lactulose 20 Gm/30 Ml Udc PO 01/31/24 14:11 30 gm DAILY PRN Administration Constipation Latanoprost 1 drops 01/31/23 21:00 01/31/23 20:05 Latanoprost 0.005% Op Soln 50 Drops/2.5 Ml Bottle EYE-BOTH 01/31/24 20:59 1drops QPM BERTRAND Administration Levofloxacin 750 mg 02/01/23 10:30 02/01/23 11:00 Levofloxacin 750 Mg Tablet PO 02/05/23 10:30 750 mg Q48H BERTRAND Administration Lisinopril 40 mg 02/01/23 09:00 02/01/23 09:21 Lisinopril 40 Mg Tablet PO 02/01/24 08:59 40 mg DAILY BERTRAND Administration Ondansetron HCl 4 mg 01/31/23 14:52 Ondansetron Odt 4 Mg Tab.Rapdis PO 01/31/24 14:51 Q4HR PRN Nausea And Vomiting Oxycodone HCl 5 mg 01/31/23 14:46 02/01/23 09:33 Oxycodone Ir 5 Mg Tablet PO 5 mg Q6HR PRN Administration Severe Pain Prednisone 5 mg 01/31/23 14:50 Prednisone 5 Mg Tablet PO 02/01/24 08:59 DAILY PRN arthritis pain Sennosides 2 tab 02/01/23 12:00 Sennosides 8.6 Mg Tablet PO 02/01/24 11:59 DAILY@12 PRN If no BM in 2 days Sodium Chloride 0 ml 01/31/23 14:12 Sodium Chloride 0.9 % 10 Ml Syringe IV-PUSH 01/31/24 14:11 PRN PRN Flush Vitamin D 50 mcg 02/01/23 09:00 02/01/23 09:21 Cholecalciferol 25 Mcg (1,000 Units) Tablet PO 02/01/24 08:59 50 mcg DAILY BERTRAND Administration Exam Physical Exam Vital Signs: Temp Pulse Resp BP Pulse Ox O2 Del Method 98.3 F 75 16 132/89 96 Room Air 02/01/23 08:00 02/01/23 08:00 02/01/23 08:00 02/01/23 08:00 02/01/23 08:00 02/01/23 10:53 Narrative: CONST- alert, in bed, no acute distress HEAD- normocephalic and atraumatic EENT- sclera nonicteric and conjunctiva nonerythemic, moist oral mucosa, pharynxclear NECK- supple, no cervical lymphadenopathy CARDIAC- RRR no abnormal heart tones PULM- diminished without wheeze or rhonchi, RA, no accessory muscle use or coughnoted ABD- S/NT, NABS EXTREM- no edema RLE, calves nontender, left knee/lower extremity with 1+ edema LLE mild warmth around the knee SKIN- W/D, good turgor, left knee incision well approximated with small amount of serous dressing drainage and mildly erythematous MS- MAEx4 spontaneously with equal strength NEURO- A&Ox3, speech clear and tongue midline, equal facial symmetry PSYCH-mood and behavior appropriate Results Lab Results Labs: Laboratory Results - last 72 hr 02/01/23 11:04: Blood Type Recheck A Positive 02/01/23 10:10: Blood Type A Positive, Antibody Screen Positive, Crossmatch (AHG) See Detail 02/01/23 06:21: PHA Creatinine Clear 39.13, Sodium 131 L, Potassium 4.4, Chloride 99, Carbon Dioxide 26.4, Anion Gap 10.0, BUN 17, Creatinine 1.16, Est GFR (CKD-EPI) 48.558, Glucose 94, Calcium 8.4 L, Total Bilirubin 0.8, AST 24, ALT 14, Alkaline Phosphatase 100, Total Protein 5.2 L, Albumin 3.3 L, Globulin 1.9, Albumin/Globulin Ratio 1.7, Prealbumin 14.7 L Assessment & Plan Assessment/Plan (1) S/P total knee arthroplasty: (2) Anemia: (3) Hypertension: (4) Hyperlipidemia: (5) Rheumatoid arthritis: (6) Chronic hyponatremia: Plan Knee replacement 01/17/2023 at [facility] Postoperative anemia -Further POC per PMR team for rehabilitative therapy postop, pain control bowel regimen, DVT PPx, surgical wound care -Please address any questions/concerns postoperatively to [facility] orthopedic team -Continue Levaquin as previously ordered through 02/05/2023 -PMR team has already ordered transfusion 2units PRBC with Hgb today 6.6, trend labs, check iron studies & stool for OB. PMR team has Rivaroxaban on hold as d/w charge nurse Chronic conditions 1. HTN, HLD?ASA, atorvastatin, furosemide. Review of outpatient med fills shows recent Rx for Lisinopril 40 but not on med list - monitor BP closely for potential resumption. BP currently controlled 2. Glaucoma?brimonidine, latanoprost 3. RA?hydroxychloroquine, prn prednisone 4. Chronic hyponatremia?review of EMR shows chronic low levels?TSH, serum/urineosmolality, urine sodium, cortisol in a.m. Documented By: VANDA Smith 3 1331 Signed By: <Electronically signed by ANP-BC Ivy Thomas> 02/01/23 1611 <Electronically signed by Will Brown MD> 02/02/23 0733 [facility] Work Phone: 1(715) 470-343108-31-2023 NoteHNO ID: [id number] Author: Jocelyn Kuo RN Service: ? Author Type: Registered Nurse Type: Nursing Progress Note Filed: 01/19/2023 4:59 PM Note Text: 1655 Report called to [facility] at [facility] [phone] 01-19-2023 NoteHNO ID: [id number] Author: Catalina Campbell, OTIS Service: Care Management Author Type: Registered Nurse Type: Care Mgt Progress Note Filed: 01/19/2023 12:52 PM Note Text: CARE MANAGEMENT DISCHARGE NOTE SERVICE DATE: January 19, 2023 SERVICE TIME: 12:51 PM Admission Date: 01/17/2023 LOS: 0 days Discharge Arrangement [facility] Provider Name: Cinda Coronel Caregiver Assessment Caregiver is ready, willing and able to meet the patient's needs as recommended by the inter-professional team: No Caregiver needed Transportation Arrangements Transportation Arrangements: Ambulance Transportation Agency and Phone #:: [facility] [phone] Date of Trip: 01/19/23 Time of Trip: 1600 Type of Service: BLS Non-emergency Is Patient Medicaid Pending?: No Was transportation financial coverage discussed with family?: Patient Java Developer Location: [place] Destination: [facility] Financial Care Management Responsibility: None Additional Information: Patient being dc'd to [facility]. Discharge Information Row Name Admission (Current) from 01/17/[address] [facility] SIGNATURE: Catalina Campbell RN PATIENT NAME: Kiki Moore DATE: January 19, 2023 TIME: 12:51 PM CONTACT #: [id number] History of Past illness Narrative* Problem Noted Date Diagnosed Date Resolved Date Hypomagnesemia 01/19/2023 01/19/2023 KAMI (acute kidney injury) 01/18/2023 Hyperkalemia 01/18/2023 01/19/2023 documented as of this encounter (statuses as of 03/07/2023) [facility]08-31-2023 History of Past illness Narrative* Problem Noted Date Diagnosed Date Resolved Date Hypomagnesemia 01/19/2023 01/19/2023 KAMI (acute kidney injury) 01/18/2023 Hyperkalemia 01/18/2023 01/19/2023 documented as of this encounter (statuses as of 04/17/2023) [facility]08-31-2023 NoteHNO ID: [id number] Author: Gaby Solorzano PA-C Service: Orthopaedic Surgery Author Type: Physician Lpc Type: Progress Notes Filed: 01/19/2023 11:18 AM Note Text: ORTHOPAEDIC POSTOP PROGRESS NOTE SERVICE DATE: 01/19/2023 SERVICE TIME: 11:16 AM Ms. Moore is doing well. Having pain after working with therapy. Otherwise stable, no acute events overnight. Hgb stable, hyponatremia improving, appreciate hosp medicine. VITAL SIGNS: BP 126/57 Pulse 68 Temp 36.3 ?C (97.3 ?F) (Oral) Resp 20 Ht 154.9 cm (5' 1 ) Wt 78.1 kg (172 lb 2.9 oz) SpO2 98% BMI 32.53 kg/m? INTAKE AND OUTPUT: Intake/Output Summary (Last 24 hours) at 01/19/2023 1116 Last data filed at 01/19/2023 0831 Gross per 24 hour Intake 100 ml Output 1750 ml Net -1650 ml PHYSICAL EXAMINATION: Left Lower Extremity: Dorsalis pedis pulses palpable. Posterior tibial pulses palpable. Dorsi flexion 5/5. Plantar flexion 5/5. Extensor hallucis extension: 5/5. Sensory intact to light touch L1-S1. Dressing clean, dry, and intact. Surgical site no drainage and Silverlon intact. Problem Review and Assessment: Patient monitored, no new events overnight. LABS: Recent Labs 01/19/23 0340 01/18/23 0431 HB 7.6* 7.8* HCT 23.2* 23.1* DATA: Diagnostic tests reviewed for today's visit: Most recent labs and imaging results. Assessment/Plan S/P Procedure(s) (LRB): ARTHROPLASTY REPLACE JOINT TOTAL KNEE AIDA (Left) on 01/17/2023 POSTOP PLAN: PT/OT evaluation - recommending SNF DVT prophylaxis: Intermittent pneumatic compression device (IPCD) and Xarelto 10mg daily Pain control - continue current Electrolyte abnormalities - improving; appreciate hospital medicine team Case Management for discharge planning; plan for DC to SNF this afternoon Patient is surgically stable for discharge pending PT/OT clearance ACTIVE PROBLEM LIST Enthesopathy of Hip Region Acquired Spondylolisthesis Spinal Stenosis, Lumbar Region, Without Neurogenic Claudication Knee Joint Replacement By Other Means Follow-Up Examination, Following Unspecified Surgery Disorders of Bursae and Tendons in Shoulder Region, Unspecified Radiculitis, Lumbosacral Bursitis 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 Oa (Osteoarthritis) Glaucoma Obesity, Class II, BMI 38.47 Rheumatoid arthritis Postoperative Anemia Due to Acute Blood Loss Thoracic Or Lumbosacral Neuritis Or Radiculitis, Unspecified Lumbosacral Spondylosis Without Myelopathy History of Spinal Surgery Obesity Snoring Back Pain Ra (Rheumatoid Arthritis) ([facility]) Arthritis of Left Hip Spondylolisthesis of Lumbar Region 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 Stroke ([facility]) Dvt of Popliteal Vein ([facility]) S/P Patent Foramen Ovale Closure Hypertension Pulmonary Hypertension ([facility]) Primary Osteoarthritis of Left Knee Obesity, Class I, Bmi 30-34.9 Status Post Total Left Knee Replacement Kami (Acute Kidney Injury) ([facility]) Hyponatremia Hyperkalemia S/P Total Knee Arthroplasty, Left Hypomagnesemia Medication and Non-Pharmacologic VTE Prophylaxis/Anticoagulants Anticoagulant AND Antiplatelet Medications (From admission, onward) Start Dose Route Frequency Last Action Ordered Stop 01/18/23 0900 rivaroxaban 10 mg tab(s) (XARELTO) (Surgical Risk Categories) 10 mg ORAL DAILY Given, 01/19 0938 01/17/23 1616 01/30/23 0859 01/18/23 0000 graduated compression stockings ([place] 01/17/23 1630 graduated compression stockings [place] 01/17/23 1630 activity - mobilize [place] ([place] VTE Prophylaxis: VTE prophylaxis appropriate POST OPERATIVE COMPLICATIONS: Complicated by: uneventful/none I spent a total of 35 minutes on the date of the service which included [id number] patient care, completing clinical documentation, obtaining and/or reviewing separately obtained history, and performing a medically appropriate examination. SIGNATURE: Gaby Solorzano PA-C PATIENT NAME: Kiki Moore DATE: January 19, 2023 TIME: 11:16 AM ETX#[id number] NoteHNO ID: [id number] Author: Gaby Solorzano PA-C Service: Orthopaedic Surgery Author Type: Physician Lpc Type: Progress Notes Filed: 01/18/2023 12:15 PM Note Text: ORTHOPAEDIC POSTOP PROGRESS NOTE SERVICE DATE: 01/18/2023 SERVICE TIME: 12:11 PM Pain well controlled, no acute events overnight or new complaints during my visit. Dispo pending further therapy recs. Medicine team following for hyponatremia (Na 126). VITAL SIGNS: BP 113/52 Pulse (!) 54 Temp 36.5 ?C (97.7 ?F) (Oral) Resp 16 Ht 154.9 cm (5' 1 ) Wt 78.1 kg (172 lb 2.9 oz) SpO2 96% BMI 32.53 kg/m? INTAKE AND OUTPUT: Intake/Output Summary (Last 24 hours) at 01/18/2023 1211 Last data filed at 01/17/20232052 Gross per 24 hour Intake 50 ml Output 550 ml Net -500 ml PHYSICAL EXAMINATION: Left Lower Extremity: Dorsalis pedis pulses palpable. Posterior tibial pulses palpable. Dorsi flexion 5/5. Plantar flexion 5/5. Extensor hallucis extension: 5/5. Sensory intact to light touch L1-S1. Dressing clean, dry, and intact. Surgical site no drainage and Silverlon intact. Problem Review and Assessment: Patient monitored, no new events overnight. LABS: Recent Labs 01/18/23 0431 HB 7.8* HCT 23.1* DATA: Diagnostic tests reviewed for today's visit: Most recent labs and imaging results. Assessment/Plan S/P Procedure(s) (LRB): ARTHROPLASTY REPLACE JOINT TOTAL KNEE AIDA (Left) on 01/17/2023 POSTOP PLAN: PT/OT evaluation - appreciate rec's, pending PM visit for dispo recs DVT prophylaxis: Intermittent pneumatic compression device (IPCD) and Xarelto 10mg daily. Pain control - continue current Hyponatremia - hospital medicine team following, appreciate Case Management for discharge planning Patient is surgically stable for discharge pending PT/OT clearance ACTIVE PROBLEM LIST Enthesopathy of Hip Region Acquired Spondylolisthesis Spinal Stenosis, Lumbar Region, Without Neurogenic Claudication Knee Joint Replacement By Other Means Follow-Up Examination, Following Unspecified Surgery Disorders of Bursae and Tendons in Shoulder Region, Unspecified Radiculitis, Lumbosacral Bursitis Mechanical Failure of Prosthetic Joint ([facility]) S/P Revision of Total Hip Oa (Osteoarthritis) Glaucoma Obesity, Class II, BMI 38.47 Rheumatoid arthritis Postoperative Anemia Due to Acute Blood Loss Thoracic Or Lumbosacral Neuritis Or Radiculitis, Unspecified Lumbosacral Spondylosis Without Myelopathy History of Spinal Surgery Obesity Snoring Back Pain Ra (Rheumatoid Arthritis) ([facility]) Arthritis of Left Hip Spondylolisthesis of Lumbar Region 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 Stroke ([facility]) Dvt of Popliteal Vein ([facility]) S/P Patent Foramen Ovale Closure Hypertension Pulmonary Hypertension ([facility]) Primary Osteoarthritis of Left Knee Obesity, Class I, Bmi 30-34.9 Status Post Total Left Knee Replacement Kami (Acute Kidney Injury) ([facility]) Hyponatremia Hyperkalemia Medication and Non-Pharmacologic VTE Prophylaxis/Anticoagulants Anticoagulant AND Antiplatelet Medications (From admission, onward) Start Dose Route Frequency Last Action Ordered Stop 01/18/23 0900 rivaroxaban 10 mg tab(s) (XARELTO) (Surgical Risk Categories) 10 mg ORAL DAILY Given, 01/18 1008 01/17/23 1616 01/30/23 0859 01/18/23 0000 graduated compression stockings ([place] 01/17/23 1630 graduated compression stockings [place] 01/17/23 1630 activity - mobilize patient ([place] VTE Prophylaxis: VTE prophylaxis appropriate POST OPERATIVE COMPLICATIONS: Complicated by: uneventful/none I spent a total of 25 minutes on the date of the service which included preparing to see the patient, [id number] patient care, completing clinical documentation, obtaining and/or reviewing separately obtained history, and performing a medically appropriate examination. SIGNATURE: Gaby Solorzano PA-C PATIENT NAME: Kiki Moore DATE: January 18, 2023 TIME: 12:11 PM ETX#[id number] NoteHNO ID: [id number] Author: Catalina Campbell RN Service: Care Management Author Type: Registered Nurse Type: Care Mgt Initial Assessment Filed: 01/18/2023 12:16 PM Note Text: CARE MANAGEMENT: ASSESSMENT AND DISCHARGE PLAN SERVICE DATE: January 18, 2023 SERVICE TIME: 12:10 PM PCP: MAINE Arias PA-C Primary Contact: Extended Emergency Contact Information Primary Emergency Contact: Jackeline Lala Relation: Child Admission Status: Extended Recovery Insurance Provider: MARILU PATTERSON ACCESS Discharge Planning requested by: Per Department Practice Potential Transition Plans Correction Facility/Intermediate Care Facility Advance Directives Current Advance Directive: Health Care Power of Deputy Director In Chart: Yes Up To Date and Valid: Yes Current Living Arrangements and Support Lives with: Alone Type of Residence: Private Residence (House) Does the patient have to climb stairs at home?: stairs within the home Support: Children How do you manage to accomplish the following: Independent: Ambulation;Bathe/Shower;Dress;Meals/Meal Prep;Going to the bathroom;Medication Management;Transportation to appointments/community Current Services/Equipment Current Post-Acute Service(s): DME Current DME Type: Standard walker Discharge Planning Patient Goal(s): Better mobility [place] of Choice Explained: [place] of [place] Given: Yes Level of Care Discussed: Correction Facility Discharge Planning Participant(s): Patient Patient/Family Comments: Caregiver Assessment: Caregiver is ready, willing and able to meet the patient's needs as recommended by the inter-professional team: No Caregiver needed Transport at Discharge: Transportation Arrangements: Ambulance Transportation Agency and Phone #:: [facility] [phone] Java Developer Location: [place] Needs Prior to Discharge: Needs Prior to Discharge: OT/PT Evaluation;Facility or Agency Choices Post-Acute Discharge Plan: Met with patient at bedside. Explained the role of CM. Patient lives alone. Patient has a walker. Patient is agreeable to SNF and [facility] given choices. Referral has been sent. Patient will not be medically cleared until tomorrow. Daughter, Jackeline Lala, is aware of the plan SIGNATURE: Catalina Campbell RN PATIENT NAME: Kiki Moore DATE: January 18, 2023 TIME: 12:10 PM CONTACT #: [id number] NoteHNO ID: [id number] Author: Shania Hendrickson RT(R) Service: Radiology Author Type: Technologist Type: Progress Notes Filed: 01/17/2023 2:46 PM Note Text: Radiology Service Progress Note PATIENT NAME: Kiki Moore DATE OF SERVICE: January 17, 2023 TIME: 2:45 PM PATIENT IDENTITY VERIFICATION COMPLETED USING TWO (2) IDENTIFIERS: Name and Date of confirmed by patient verbally and Name and Date of confirmed by identification band. FALL SCREENING: Has the patient had 2 falls in the last year or 1 fall with injury or currently using an Ambulatory Assistive Device (Walker, Cane, Wheelchair, Crutches, etc.)? Inpatient: Screened on floor PATIENT GENDER DATA: Female. status: : No status: NO. PATIENT RELEVANT IMPLANT DATA REVIEWED: Not Applicable RADIOLOGY DEPARTMENT: General X-ray: Exam(s) Completed: Lower Extremity X-Ray(s): Knee, AP / LAT Left PERIPHERAL IV DATA: Not applicable SIGNED BY: RT Scarlett(R) January 17, 2023 2:45 PMAGunnison Valley [id number] Evaluation note* Diagnosis S/P total knee replacement, left (01/17/2023)- Primary documented in this encounter [facility]08-29-2023 NoteHNO ID: [id number] Author: Pedro Santana MD Service: Anesthesiology Author Type: Anesthesiologist Type: Anesthesia Procedure Notes Filed: 01/17/2023 8:56 AM Note Text: ANESTHESIOLOGY PROCEDURE NOTE Peripheral Nerve Block General Information Procedure Start Time/Medication Administration: 01/17/2023 8:06 AM Patient location during procedure: OR Timeout Performed Pre-procedure: timeout performed Consent Obtained: Yes Patient identity confirmed: arm band, care steam brush operator and patient sedated or unresponsive Reason for block: post-op pain management/at surgeon's request Staffing Performed by: anesthesiologist Preparation Sterility Preparation: hand hygiene performed prior to procedure, surgical cap used, mask used, sterile drape used during line insertion, skin prep agent completely dried prior to procedure Site Prep: Chloraprep Pre-Procedure Neuro Exam Location: LLE Sensory: sensory deficit Motor: pre-existing condition Procedure Details Patient Position: supine Monitoring: Pulse OX, EKG and NIBP Block Type Lower Extremity: distal femoral (adductor canal) Laterality: left Injection Technique: single-shot Ultrasound Guided: Yes Image in Chart: yes Local Infiltration: Yes Needle Needle Type: echogenic Needle Gauge: 22 G Needle Length: 100 mm Needle Localization: ultrasound Assessment Injection assessment: negative aspiration, no paresthesia on injection, incremental injection and local visualized surrounding nerve on ultrasound Post-Procedure Neuro Exam Expected Regional Anesthesia: Yes Medications Administered dexamethasone sodium phosphate injection (DECADRON) - peripheral nerve block 10 mg - 01/17/2023 8:06:00 AM ropivacaine (PF) 5 mg/mL (0.5 %) injection (NAROPIN) - peripheral nerve block 20 mL - 01/17/2023 8:06:00 AM SIGNATURE: Pedro Santana MD PATIENT NAME: Kiki Moore DATE: January 17, 2023 TIME: 8:55 AM CSN: [id number] NoteHNO ID: [id number] Author: Otto Tejada APRN.HEADING MATCHER AND ASSEMBLER Service: ? Author Type: Nurse Rn Field Case Manager Type: Anesthesia Procedure Notes Filed: 01/17/2023 8:43 AM Note Text: ANESTHESIOLOGY PROCEDURE NOTE Airway General Information Procedure Start Time/Medication Administration: 01/17/2023 8:35 AM Patient location during procedure: OR Timeout Performed Pre-procedure: timeout performed Consent Obtained: Yes Patient identity confirmed: arm band Staffing HEADING MATCHER AND ASSEMBLER: Otto Tejada APRN.HEADING MATCHER AND ASSEMBLER Performed by: HEADING MATCHER AND ASSEMBLER Indications and Patient Condition Indications for airway management: anesthesia Preoxygenated: yes anesthesia circuit Patient position: sniffing Method: asleep Difficult Mask: No Final Airway Details Final airway type: supraglottic airway Number of attempts at approach: 1 Final Supraglottic Airway: IGEL Size 4 Seal Adequate: yes Airway not difficult SIGNATURE: Otto Tejada APRN.CRNA PATIENT NAME: Kiki Moore DATE: January 17, 2023 TIME: 8:42 AM CSN: [id number] NoteHNO ID: [id number] Author: Otto Tejada APRN.HEADING MATCHER AND ASSEMBLER Service: ? Author Type: Nurse Rn Field Case Manager Type: Anesthesia Procedure Notes Filed: 01/17/2023 8:42 AM Note Text: ANESTHESIOLOGY PROCEDURE NOTE Spinal Block General Information Procedure Start Time/Medication Administration: 01/17/2023 7:54 AM Patient location during procedure: OR Timeout Performed Pre-procedure: timeout performed Consent Obtained: Yes Patient identity confirmed: arm band and patient Reason for Block: primary surgical anesthetic Staffing Performed by: anesthesiologist and HEADING MATCHER AND ASSEMBLER Preparation Sterility Preparation: hand hygiene performed prior to procedure, sterile gloves, drapes, and procedure tray, surgical cap used, mask used, sterile drape used during line insertion, skin prep agent completely dried prior to procedure Sterility Technique Not Completely Performed Due to Extreme Emergency: No Site Prep: Duraprep Procedure Details Patient Position: sitting Ultrasound Guided: No Monitoring: Pulse Ox, NIBP and EKG Approach: Midline Location: L3-4 and L4-5 Injection Technique: single-shot Needle Needle Type: pencil-tip Needle Gauge: 25 G Needle Length: 5 in Assessment Events: tolerated well Medications Administered bupivacaine-dextrose 0.75 % (7.5 mg/mL) injection (SENSORCAINE MPF SPINAL) - INTRASPINAL 1.6 mL - 01/17/2023 7:54:00 AM lidocaine 100 mg/5 mL (2 %) IV syringe - INTRAVENOUS 2 mL - 01/17/2023 7:40:00 AM 2 mL - 01/17/2023 7:45:00 AM SIGNATURE: Otto Tejada APRN.CRNA PATIENT NAME: Kiki Moore DATE: January 17, 2023 TIME: 8:31 AM CSN: [id number] NoteHNO ID: [id number] Author: Jduit Jarrell PA-C Service: ? Author Type: Physician Lpc Type: Progress Notes Filed: 12/23/2022 5:23 PM Note Text: CONSULT ORTHOPAEDIC: KNEE PRIMARY CARE PHYSICIAN: Cinda Coronel REFERRING PROVIDER: SELF ASSESSMENT AND PLAN Impression: Left Knee Severe Degenerative Osteoarthritis, Primary Diagnoses: (M17.12) Primary osteoarthritis of left knee (primary encounter diagnosis) Based upon the evaluation today and after discussions with Kiki Moore, Kiki Moore has significant, worsening pain at the knee. This pain is increased with activity and weight bearing, and interferes with activities of daily living. These symptoms have continued despite a number of non-surgical measures, including a trial of oral pain medication and attempted physical therapy/ structured exercise program and/or use of an assistive device/ bracing (for at least 12 weeks unless the patient was unable to tolerate these measures as discussed above). At this point, the patient will not benefit from further PT due to the severity of their condition. The patient's physical examination is consistent with limitations in range of motion, pain with passive range of motion, crepitus, and effusion/ synovitis. These examination findings are corroborated by imaging findings of joint space narrowing, periarticular osteophyte formation, and subchondral sclerosis. The patient has been treated by the practice and all reasonable treatments have failed to control the disease, which causes significant pain and limits activities of daily living. The patient has failed conservative treatment and joint replacement surgery was discussed and agreed upon by both provider and patient. We will proceed with surgical management to improve function and relieve pain refractory to non-surgical measures. Left Primary Total Knee Arthroplasty as evidenced by six months of unsuccessful non-operative treatment as outlined in the HPI below and progressive symptoms. Progressive Symptoms Include: Pain impacting sleep or causing fatigue Pain impacting work Pain worsened by weight bearing Pain effecting living situation Pain limiting ability to stay fit and healthy Unable to ambulate 2 blocks without significant pain and dysfunction . Surgery Details Date and Location: At [facility] on 01/17/23. Implants: Aida Robotic: Yes Predicted LOS: 2 days (Inpatient candidate) Informed consent obtained in the office today. The risks and benefits of surgery were discussed at length including but not limited to the risks of infection, bleeding, nerve or blood vessel injury, deep venous thrombosis, pulmonary embolism, arthrofibrosis, reflex sympathetic dystrophy, , paralysis, knee or patellar dislocation, extensor mechanism injury, bone fracture, component loosening or failure requiring re-operation or amputation. Informed consent was obtained and the patient was scheduled for surgery. We also discussed fixation strategies including cement and cementless fixation and advantages and disadvantages of each. We discussed the details of the surgery as well as rehabilitation. All questions were answered, and the patient wishes to proceed with surgery.. The patient has been ordered: No orders found for this visit on 12/23/22. No orders placed today. CONSULTS: Patient does not require consults for optimization at this time. Total Joint Arthroplasty: Risk Calculator Kiki Moore has a 10.26% chance of NOT returning home at discharge for a Primary total Knee replacement. Kiki's estimated Length of Stay is 2 days (Inpatient candidate). Kiki's 30 day chance of readmission is 6.73%. Readmission Probability 6.73 % (within 30 days following surgery) Estimated LOS 2 days Discharge Disposition Probability D/C to Home 89.74 % D/C to SNF 10.26 % These calculations are based on the following factors: - 77 years of age - sex is not male - BMI of 33.44 kg/m2 - NarxCare score of 40 - 0 hospitalizations in the last 12 months - no history of heart disease - no history of diabetes - no history of COPD - history of anemia - preoperative ambulation: independent community distances - 5 step(s) to enter home - bed location is on the first floor - bath location is on the first floor - caregiver is consistent - home is not more than 150 miles away - PROMIS-10 Mental Health T score not available - Marital status: Risk Factors for Total Knee Arthroplasty (TKA) Major Risk Factors Obesity Unknown Risk High: BMI > 40 Moderate: BMI 30-40 Normal: BMI < 30 Diabetes normal High: A1C > 8 Moderate: A1C 7-8 Normal: A1C < 7 Smoking normal High: Current smoker Normal: Non smoker Narcotics Use normal High:NarxCare >=300 Moderate: 100-299 Normal: 0-99 Depression Unknown Risk High: PHQ-9 >14 Moderate: PHQ-9 5-14 Normal: PHQ-9 < 5 Area Deprivation Index (DONI) Mo (more content not included)...[facility] 12-23-2022 Instructions* Patient Instructions* Rico Florian APRN.[facility] - 12/23/2022 10:35 AM EDT PATIENT PREOPERATIVE INSTRUCTIONS Shan Bxo MD has scheduled you for your procedure at this surgery center: [facility]: [phone] --[id number] [place] [address]. Please enter through the entrance closest to [facility]. Please read below carefully for your personalized instructions. Dietary Restrictions: - No solid food after midnight. - You may have 12 ounces of clear liquids (water, clear juices such as apple juice or gatorade, carbonated beverages, clear tea, black coffee, jello) until 2 hours before scheduled arrival at facility. Is Patient Diabetic:No Medications: Unless instructed differently below, stay on all of your medications until your surgery. Approved medications to take the morning of surgery with a sip of water: NONE If you start any new medications after today's visit, please contact the surgeon's office. Blood Thinning Medications: - Stop NSAIDS (Ibuprofen, Advil, Aleve, Motrin, Celebrex, Mobic, etc.) 7 days before surgery, as directed by your surgeon. - Stop Vitamin E, ALL multi-vitamins, herbals and dietary supplements 7 days before surgery. - You may take Tylenol (Acetaminophen) or any of your pain medications that do not contain aspirin or NSAIDS as needed. ONLY NEED TO FOLIC ACID 7 DAYS PRIOR TO SURGERY CONTINUE ASA 81mg Important Reminders: - Candy, mints, and tobacco products are NOT permitted the morning of surgery. - Hearing aids, dentures and glasses may be worn the morning of surgery. - NO jewelry, body piercings, makeup, hairpins or contacts are to be worn the day of surgery. If you develop symptoms such as a fever, cold, or flu, or have other changes to your health within TWO DAYS of scheduled surgery or the morning of surgery, please contact the surgery center above. Personal Belongings: -Please have photo ID and insurance cards. -If you do not have a copy of advance directives on file with us, please bring a copy with you on the day of surgery. - Leave ALL valuables and money at home or with family members. For Outpatient Procedures: - YOU MUST HAVE A RESPONSIBLE HELMET HAT BRIM CUTTER TAKE YOU HOME. A CREDIT REVIEW OFFICER OR RUBBER PRINTING MACHINE OPERATOR CANNOT BE MADE A RESPONSIBLE HELMET HAT BRIM CUTTER. - We recommend that a responsible person stays with you overnight to take care of you. - You cannot stay in a hotel alone after outpatient surgery. You will not be permitted to have yoursurgery, if you do not have someone to take care of you. Arrival Time for Surgery: - The Surgery Center or hospital where you are having surgery will call the afternoon before surgery (or Monday for Monday surgery) with a scheduled arrival time. - If you have not heard by 4 pm, please contact the surgery center above. Please be aware that emergency situations arise, which may delay or change your surgical time. If this happens, we will notify you as soon as possible and regret any inconvenience. If you already have an Advance Directive, please fax a copy to [phone] or email to for it to be added to your chart. If you do not have an Advance Directive, you can find the appropriate form and more information at [email or web address]. We recommend that youcomplete the Advance Directive form found on the website and bring it with you the day of your surgery. It can be witnessed and scanned into your chart that day. Rico Florian APRN.CNP [facility] History and physical note * Rico Florian APRN.CNP - 12/23/2022 10:20 AM EDT Images from the original note were not included. HISTORY AND PHYSICAL EXAMINATION SERVICE DATE: 12/23/2022 SERVICE TIME: 9:40 AM PRIMARY CARE PHYSICIAN: Cinda Coronel REASON FOR VISIT: Kiki Moore is a 77 year old female who is scheduled for ARTHROPLASTY REPLACE JOINT TOTAL KNEE AIDA EXTENDED STAY left at the request of Dr. Shan Box for consultation. My final recommendation will be communicated back to the requesting physician by way of shared medical record orletter. The patient has the following: ACTIVE PROBLEM LIST Enthesopathy of Hip Region Acquired Spondylolisthesis Spinal Stenosis, Lumbar Region, Without Neurogenic Claudication Knee Joint Replacement By Other Means Follow-Up Examination, Following Unspecified Surgery Disorders of Bursae and Tendons in Shoulder Region, Unspecified Radiculitis, Lumbosacral Bursitis 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 Oa (Osteoarthritis) Glaucoma Obesity, Class II, BMI 38.47 Rheumatoid arthritis Postoperative Anemia Due to Acute Blood Loss Thoracic Or Lumbosacral Neuritis Or Radiculitis, Unspecified Lumbosacral Spondylosis Without Myelopathy History of Spinal Surgery Obesity Snoring Back Pain Ra (Rheumatoid Arthritis) ([facility]) Arthritis of Left Hip Spondylolisthesis of Lumbar Region 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 Subjective CHIEF COMPLAINT: Left knee pain HPI: 77 year old female with left knee pain that has had multiple knee surgeries in the past. Patient has tried NSAIDS, steroid injections, Patient is currently using a walker for assistance. Patientstates pain today is 8/10 PAST MEDICAL HISTORY Diagnosis Date Back pain Bursitis DVT of popliteal vein ([facility]) Glaucoma Hypertension OA (osteoarthritis) Obesity RA (rheumatoid arthritis) ([facility]) Rotator cuff syndrome Snoring Spinal stenosis, lumbar Stroke ([facility]) PAST SURGICAL HISTORY Procedure Laterality Date ARTHRP ACETBLR/PROX FEM PROSTC AGRFT/ALGRFT right Hip replacement, total 2001, revision 06/2014 ARTHRP KNE CONDYLE&PLATU MEDIAL&LAT COMPARTMENTS right Knee replacement, total 1998, 2007 SECTION HX x 2 births FOOT SURGERY HX tumors removed left and right feet GALL BLADDER NO STIMULATION LAMINECTOMY W/O FFD / VERT SEG LUMBAR 05/22/1992 Dr Tejada PAST SURGICAL HISTORY OF Right 06/22/2014 revision right toal hip replacement PFO CLOSURE 2017 ROTATOR CUFF REPAIR TOTAL HIP REPLACEMENT Left FAMILY HISTORY Problem Relation Age of Onset other (heart attack [Other]) Mother Arthritis Father Arthritis Maternal Grandfather Arthritis Maternal Grandmother Cancer Brother Cancer Father SOCIAL HISTORY: Social History Tobacco Use Smoking status: Never Smokeless tobacco: Never Substance Use Topics Alcohol use: No Drug use: No Prior to Admission medications as of 12/23/22 1020 Medication Sig Last Dose Taking hydrOXYchloroQUINE (PLAQUENIL) 200 mg tablet Take 200 mg by mouth twice daily with meals. Yes furosemide (LASIX) 20 mg tablet Take 20 mg by mouth every morning. Yes potassium chloride (K-TAB) 10 mEq tablet TAKE 1 TABLET (10 MEQ) BY MOUTH IN THE MORNING Yes clindamycin (CLEOCIN) 300 mg capsule Take 1 tablet by mouth 1 hour prior to procedure and 1 tablet by mouth 6 hours after procedure Yes LISINOPRIL ORAL Take by mouth. Yes aspirin, enteric coated (ASPIRIN, ENTERIC COATED) 325 mg EC tablet Take 1 tablet by mouth twice daily. Yes latanoprost (XALATAN) 0.005 % ophthalmic solution 1 Drop daily at bedtime. Yes METHOTREXATE SODIUM (METHOTREXATE, ANTI-RHEUMATIC, ORAL) Take 2.5 mg by mouth. 8 tabs on Mondays Yes FOLIC ACID 1 MG TAB Take four tablets po every Monday Yes ALPHAGAN P 0.1 % EYE DROPS one drop each eye daily Yes No medication comments found. ALLERGIES Allergen Reactions Celebrex [Celecoxib] Hives, Swelling Vioxx [Rofecoxib] Cough states she had extreme dry mouth Gabapentin Other: See Comments Syncope with fall REVIEW OF SYSTEMS: PAIN ASSESSMENT: Pain Pain Level: 5 Pain Location: Knee-Left Description: Aching Duration Amount of Time: 5 Duration Units: Years Frequency: Continuous Intervention/Comfort measure: Medication, Cold General: No weight loss, malaise or fevers. Neuro: Postive for Stroke-No residual deficit in 2016 No history of TIA's,DECKHAND CRAB BOAT tumor, impaired sensorium, hemiplegia, paraplegia or quadraplegia. Respiratory: No history of current cough or dyspnea, or pneumonia in the past 6 weeks. No history of respiratory/pulmonary symptoms or problems. Cardiovascular: Positive for HTN, HLD + history of PFO with closure in 2017 History of Right knee DVT was on Eliquis for 6 months History of Heart failure on Lasix Denies rest pain, gangrene or revascularization/amputation for PVD. Denies any chest pain or SOB GI: No history of GI symptoms or problems. No history of esophageal varices, recent ascites, or ETOH greater than 2 drinks per day. : No history of dysuria, frequency or incontinence,, stones or chronic kidney disease, No difficulty urinating, nocturia > 1 time per night or hematuria FIRE SAFETY INSPECTOR: Negative for abnormal vaginal bleeding, abnormal vaginal discharge. : Denies, Patient's last menstrual period was 12/20/1994 (within years). Endocrine: No history of diabetes. Has not taken steroids within the past 30 days. No history of endocrinological symptoms or problems. Hematology: No history of bleeding or clotting disorder. Pt is not taking anti- coagulation or platelet medications. No history of hematological symptoms or problems. Oncology: No history of CA metastasis, chemo within 30 days, or radiotherapy within 90 days. Has not lost 10% of body wt in 6 months. No history of oncological symptoms or problems. Psych: No history of psychiatric symptoms or problems. Musculoskeletal: Rheumatoid Arthritis; on Methotrexate and Plaquenil Skin: Negative for lesions, rash and itching. Objective PHYSICAL EXAM: VITALS: BP 119/53 Pulse 58 Temp (Src) 98.1 (Temporal Artery) Resp 16 Ht 5' 1 (1.55m) Wt 167 lb (75.8kg) SpO2 99% LMP 12/20/1994 BMI 31.57 kg/(m^2). General: Alert and oriented, No acute distress Skin: Normal color, no rash, no lesions. HEENT: EOM, pupils equal, round and reactive., No carotid bruits Cardiovascular: Pulse regular. 2/6 mid systolic low pitched blowing murmur URSB and ULSB Lungs: Normal breath sounds, no wheezes or crackles. Abdomen: Soft, non-tender, no rigidity., Positive bowel sounds Neurological: Normal cognition and motor skills. Abnormal gait walks with walker Pulses: Carotid and radial pulses normal +2. Diagnostic tests reviewed for today's visit: Lab Value Units Date High Low HB No results within date range. HCT No results within date range. WBC No results within date range. PLT No results within date range. NA No results within date range. K No results within date range. GLUC No results within date range. BUN No results within date range. CREAT No results within date range. PTSEC No results within date range. INR No results within date range. APTT No results within date range. ALT No results within date range. AST No results within date range. TBILI No results within date range. TSH No results within date range. Lab Value Units Date High Low HCGQT No results within date range. UHCG No results within date range. HCG, BODY* No results within date range. Lab Value Units Date High Low ABORHD No results within date range. ABSCREEN No results within date range. Hemoglobin A1C (%) Date Value 01/29/2015 6.1 06/04/2014 5.8 [facility] PCR Order: [id number] Component Ref Range & Units 1 mo ago [facility] SA+MRSA PNL NOSE JIMBO+PROBE Negative Comment: Negative for Staphylococcus aureus by PCR. Negative for MRSA by PCR Resulting Agency [facility] Narrative Performed by [employer] Specimen Type: SWAB OF INTERNAL NOSE Ordering Facility: [facility] Address: [address] [place] [id number] Original Ordering Provider: SHAN BOX Specimen Collected: 10/26/22 3:13 PM Performed by: [employer] Last Resulted: 10/27/22 2:12 AM Received From: [facility] [employer] Result Received: 12/14/22 7:54 AM Most recent labs Most recent EKG: Assessment/Plan Stroke (HCC) Assessment: in 2016 no residual effects DVT of popliteal vein ([facility]) Assessment: history of DVT after knee surgery was on Eliquis for 6 months currently on ASA RA (rheumatoid arthritis) ([facility]) Assessment: Following with Rheumatology On methotrexate and Plaquenil Obesity Assessment: Body mass index is 31.55 kg/m . S/P patent foramen ovale closure Assessment: + history of PFO with closure in 2017 on ASA Stable following with technical training instructor Clearance in [facility] Hypertension Assessment:Stable on medication BP today 119/53 Pulmonary hypertension ([facility]) Assessment: Following with Cardiology To obtain records Current on Lasix Follows cardiology,, last OV 10/2022. Compliant on medications. Appears euvolemic, denies new or worsening cardiac symptoms. METS: Take care of self; that is eating, dressing, bathing, using the toilet (2.75 METs) Walk a block or two on level ground (2.75 METs) Patient denies any chest pain or undue shortness of breath with the above physical activity. Partially dependent Walks with walker ASA Class: 3 ANESTHESIA FINDINGS: Intubation History: No history of difficult intubation Significant Anesthesia Considerations: None Airway Exam: General: Normal appearance Mallampati Score is CLASS II ULBT: Class II - Lower incisors can bite the upper lip below the saumya line Neck: Normal appearance and function, Distance from hyoid to mentum during neck extension is at least 3 finger breaths Mouth: Normal tongue size and Mouth opening greater than 2 finger breaths Dentition: Intact Airway History: No abnormal airway history STOP BANG Score: Criteria: Hypertension Age over 50 (77 year old) Score = 2 PLAN This patient is optimally prepared for surgery pending LABS. Cardiac Clearance Pre-operative cardiovascular examination RCRI- 3 points Class IV Risk 15.0 % 30-day risk of , NC, or cardiac arrest From a cardiology perspective pt may proceed with planned Lt TKA- she is a moderate risk for a moderate risk surgery. She may hold ASA 5-7 days prior to surgery. Please monitor hemodynamics carefullyand prevent major fluid shifts, will need DVT prophylaxis. This is good for 6 months RTC 6 months to 1 year CONSULTS: Patient does not require consults for optimization at this time. The Following Tests/Procedures Have Been Initiated: Orders per surgeon Planned Anesthetic: Per anesthesia choice Instructions Given to Patient: Instructions located in the after visit summary. Patient given verbal and written preop instructions and voices comprehension and compliance. SIGNATURE: Rico Florian APRN.CNP PATIENT NAME: Kiki Moore DATE: December 23, 2022 TIME: 9:40 AM documented in this encounterUniversity Hospitals Geauga Medical Center06-21-2023 NoteRCRI- 3???points Class IV Risk 15.0???% 30-day risk of , NC, or cardiac arrest From a cardiology perspective pt may proceed with planned Lt TKA- she is a moderate risk for a moderate risk surgery. She may hold ASA 5-7 days prior to surgery. Please monitor hemodynamics carefully and prevent major fluid shifts, will need DVT prophylaxis. This is good for 6 monthsUnMemorial [facility]06-21-2023 Note Coronary artery disease is stable without any concerning symptoms Continue GDMT- ASA, lipitor EKG essentially unchanged from previous- no acute concernsUnMemorial Health System [facility]06-21-2023 NoteStable no c/o palpitations or tachycardiaUnMemorial Health System [facility]06-21-2023 NoteUTP CARDIOLOGY PROGRESS NOTE HPI: Kiki Moore is a 77 y.o. female here for routine f/U for PFO s/o occluder device implant, mild CAD, HTN, HPL, h/o Stroke and DVT HPI Overall pt is doing well. Denied chest pain- admits nerve pain from previous shingles across rt chest to back. Reports typical shortness of breath with exertion, denied orthopnea, palpitations. Admits occasional leg swelling that is no worse than typical. Denied SOB or chest pain that limits her activity. States that she is planning Lt TKA with Orthopedist in [place], [place] around this coming December. Review of Systems Constitutional: Negative. Respiratory: Positive for shortness of breath. Cardiovascular: Negative. Neurological: Negative. All other systems reviewed and are negative. Previous HPI/note Dr Robertson 10/2021 She is a 76 yo woman. She has history of stroke 04/2016 and PFO. She was found to have a right below knee symptomatic DVT and was started on eliquis for 6 months. She is now s/p closure of the PFO with Amplatzer 35 mm PFO occluder device on 01/18/2017. She had linq implanted 07/11/2016. So far this has not recorded arrhythmias. She has history of hypertension. She has no history of hyperlipidemia, her LDL was 93 on admission. After the stroke she was started on atorvastatin 40 mg daily. She has history of GI ulcers believed due to NSAID use and is on pantoprazole. She has anemia with dizziness with prior Hb of 8.8. She has dizziness that was present prior to her stroke. This has led to investigation of her anemia and the subsequent discovery of ulcers. In January 2019 she underwent cholecystectomy at [facility]. She went home and then 2 days later she developed back pain and she was found to have shingles. She was admitted again to [facility]. During that admission troponin was checked for an unclear reason and it was minimally elevated with a peak of 0.12. She was seen by cardiology. She did not have angina. An echocardiogram was done but the report is not available during this visit. She was recommended as stress test as an outpatient which showed she canceled because she did not want to go through with it. I did not think that a stress test was needed. She had hernia surgery 04/2019 with no issues. She is maintained on furosemide for chronic diastolic heart failure. Her lower extremity edema has nearly resolved with furosemide therapy. Currently she is doing well. She has no angina. She has no significant shortness of breath. She has palpitations. She has no significant leg swelling. She has had no recurrence of stroke symptoms, she still has residual significant visual field deficits from the stroke. Prior testing: Echo with bubble study-12/07/2020 Normal LV and RV systolic function, mild diastolic dysfunction-normal right-sided pressures Amplatzer device noted well-seated, no shunting with bubble study labs from 03/31/2021 CBC White blood cell count 4.8 normal, hemoglobin 9.7 hematocrit 30.1 decreased, platelets normal at 165; Potassium 4.4, BUN 20, creatinine 0.83 renal function normal, CRP was normal at less than 0.5, ESR was normal at less than 1, Pro BNP was 981 elevated labs from 09/24/2020-White blood cell 5.1, hemoglobin 10.5 this is stable for her, hematocrit 31.5, platelets 204, Normal renal function BUN 24 creatinine 0.9, Normal liver function, Cholesterol 141, triglyceride 55, HDL 77, LDL 44 Her echocardiogram 01/29/2019 at [facility] showed normal ventricular function and good seal of the PFO occluder device. ECG 10/12/2018: sinus rhythm; RBBB; LAHB Echocardiogram 09/06/2017: Global left ventricular systolic function is normal (Visually estimated EF 60-65%). Left ventricular wall thickness is mildly increased. Concentric left ventricular hypertrophy. No regional wall motion abnormality. Grade 1, mild diastolic dysfunction (abnormal relaxation). Normal right ventricular systolic function. The left atrium is mildly enlarged. Doppler studies suggest normal right sided pressures. Mild aortic dilatation . A closure device is seen in good position. No shunt by Doppler flow; negative agitated saline study 02/05 Echocardiogram 02/14/2017: Global left ventricular systolic function is normal (Visually estimated EF 60-65%). Grade 1, mild diastolic dysfunction (abnormal relaxation). Mild tricuspid regurgitation. Doppler studies suggest mildly elevated right sided pressures. Mild aortic dilatation . No intracardiac shunt by agitated saline injections. Interatrial septal closure device appears stable. Prior thrombophilia panel and that was negative. Coronary angiogram on 12/21/2016: 1. Coronary artery disease with 40% proximal LAD stenosis that is nonhemodynamically significant by FFR measurement (between 0.91). 2. Mild disease at the ostium of the right coronary artery and the ostium of the left main. 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 (more content not included)...[facility]06-21-2023 NoteWill repeat echcoardiogram No concerning symptoms todayUnMemorial Health System [facility]06-21-2023 Note Hypertension is controlled 127/67 Continue all medsUniversTrinity Health [facility]06-21-2023 NoteLipid abnormalities are Well controlled- Chol and LDL within good range (LDL < 70 and Chol < 200)[facility]06-21-2023 Notestable [facility]06-21-2023 NoteEchocardiogram ordered with bubble study Assess cardiac function, PFO closure deviceUnMemorial Health System [facility] 10-27-2022 NoteHNO ID: [id number] Author: Shan Box MD Service: ? Author Type: Physician Type: Progress Notes Filed: 10/27/2022 8:11 AM Note Text: see dictated note Shan Box II, [facility]06-08-2023 History of Present illness Narrative* Shan Box MD - 10/27/2022 7:59 AM EDT see dictated note Shan Box II, MD documented in this encounterUniversity Hospitals Geauga Medical Center06-07-2023 NoteHNO ID: [id number] Author: RT Lexus(R) Service: ? Author Type: Technologist Type: Progress Notes Filed: 10/26/2022 1:22 PM Note Text: Radiology Service Progress Note PATIENT NAME: Kiki Moore DATE OF SERVICE: October 26, 2022 TIME: 1:21 PM PATIENT IDENTITY VERIFICATION COMPLETED USING TWO (2) IDENTIFIERS: Name and Date of confirmed by patient verbally. FALL SCREENING: Has the patient had 2 falls in the last year or 1 fall with injury or currently using an Ambulatory Assistive Device (Walker, Cane, Wheelchair, Crutches, etc.)? No PATIENT GENDER DATA: Female. status: : No status: NO. PATIENT RELEVANT IMPLANT DATA REVIEWED: Yes RADIOLOGY DEPARTMENT: General X-ray: Exam(s) Completed: Lower Extremity X-Ray(s): Knee, AP / Lat / Tunne / Merchant Bilateral and Wt. Bearing PERIPHERAL IV DATA: Not applicable SIGNED BY: RT Lexus(R) October 26, 2022 1:21 [facility]06-07-2023 NoteHNO ID: [id number] Author: Shan Box MD Service: Orthopaedic Surgery Author Type: Physician Type: Progress Notes Filed: 11/01/2022 2:38 PM Note Text: [facility] [address] [place], [place] [address] CLINIC NOTE Department of Orthopaedics - Donnell Box II, M.D. NAME: KIKI MOORE [facility] NO.: [id number] DATE OF SERVICE: 10/26/2022 CHIEF COMPLAINT: Pain in left knee. PAST SURGERIES: 1. Right TKR, 08/19/1997. 2. Revision right TKR, 09/12/2006. 3. Right THR 09/12/2000. 4. Revision right THR 06/25/2014, Dr. Sutton. A 77-year-old 5 feet, 186-pound female, having increasing pain about her left knee. She has good range of motion of her left hip. Left knee is in marked valgus position with flexion from 5 to 95 degrees. X-rays AP weightbearing and flexion weightbearing view shows complete collapse of the lateral compartment with valgus deformity of the left knee. RECOMMENDATIONS: Left total knee replacement. The risks and anticipated results were explained to the patient and she would like to proceed, we will schedule. Dictated By: Shan Box II, M.D. Date Dictated: 10/27/2022 Date Typed: olena 10/27/2022 JOB# [id number]06-[facility]23 History of Present illness Narrative* DORON AlbertsR) - 10/26/2022 1:21 PM EDT Radiology Service Progress Note PATIENT NAME: Kiki Moore DATE OF SERVICE: October 26, 2022 TIME: 1:21 PM PATIENT IDENTITY VERIFICATION COMPLETED USING TWO (2) IDENTIFIERS: Name and Date of confirmedby patient verbally. FALL SCREENING: Has the patient had 2 falls in the last year or 1 fall with injury or currently using an Ambulatory Assistive Device (Walker, Cane, Wheelchair, Crutches, etc.)? No PATIENT GENDER DATA: Female. status: : No status: NO. PATIENT RELEVANT IMPLANT DATA REVIEWED: Yes RADIOLOGY DEPARTMENT: General X-ray: Exam(s) Completed: Lower Extremity X- Ray(s): Knee, AP / Lat / Tunne / Merchant Bilateral and Wt. Bearing PERIPHERAL IV DATA: Not applicable SIGNED BY: RT Lexus(Katie) October 26, 2022 1:21 PM documented in this encounterUniversity Hospitals Geauga Medical Center02-07-2023 Evaluation + Plan note Diagnostic Tests Pending * PTH Intact 06/28/22 * Calcium Level 24 Hour Urine 06/28/22 Future Scheduled Tests Laboratory* Hemoglobin and Hematocrit 09/21/21 [facility]12-28-2022 Evaluation + Plan noteExtracted from: Title:Discharge Note Author:NATALIE Cher BUNCH Date:05/18/22 Hemodynamically stable Discharge To, Anticipated II - Home independently Discharged to - Home independently Transported by, Anticipated - Family Discharge Status: Improved Discharge Instructions Given: To patient Discharge disposition: Home Prescriptions reviewed with Patient 47 minutes spent in discharge time with patient, collaborating MD, nursing staff, CRM, Discharge Diet(s): Regular, Fat Modified- Low cholesterol, Low Sodium- 2000 mg (05/18/22 09:15:00) Prescriptions atorvastatin 40 mg Tab, 40 mg= 1 tab(s), Oral, Daily, 1 refills azithromycin 500 mg oral tablet, 500 mg= 1 tab(s), Oral, Daily ferrous sulfate 325 mg Tab, 325 mg= 1 tab(s), Oral, Daily folic acid 1 mg Tab, 1 mg= 1 tab(s), Oral, Daily Keflex 500 mg Cap, 500 mg= 1 cap(s), Oral, q8hr lisinopril 40 mg Tab, 40 mg= 1 tab(s), Oral, Daily, 1 refills Medrol 4 mg Tab, 1 packet(s), Oral, As Directed Mucinex 600 mg Tab-ER, 1200 mg= 2 tab(s), Oral, BID Tessalon 100 mg Cap, 200 mg= 2 cap(s), Oral, TID, PRN Home acetaminophen 325 mg Tab, 650 mg= 2 tab(s), Oral, q6hr, PRN Alphagan P 0.15% ophthalmic solution, 1 drop(s), Eye-Both, Daily aspirin 81 mg Oral EC Tab, 81 mg= 1 tab(s), Oral, Daily furosemide 20 mg Tab, 20 mg= 1 tab(s), Oral, MonWedFri hydroxychloroquine, 200 mg, Oral, BID latanoprost ophthalmic, 1 drop(s), Eye-Both, qPM methotrexate 2.5 mg Tab, 10 mg= 4 tab(s), Oral, Monday potassium chloride 10 mEq ER Tab, 10 mEq= 1 tab(s), Oral, Daily predniSONE 5 mg Tab, 5 mg= 1 tab(s), Oral, Daily With When Contact Information Cinda CORONEL 05/19/2022 09:30 AM EST [employer] [place], [place] [address] (1) Additional Instructions: Community-Acquired Pneumonia, Adult, Welz-ba-Exdy Extracted from: Title:HypoNa Author:Hakeem Ariza MD Date: Impression and Plan 1. Acute on chronic hyponatremia with baseline sodium 128-130: Chronic component likely from low solute intake and heart failure. Unclear if acute component is from relative hypovolemia. Sodium dalila at 126 and is increasing to 129 with IV fluids. May stop her IV fluids today. Recommend protein fortified diet if able. May resume Lasix 20 mg Monday on discharge to maintain euvolemia. 2. Hypertension: Blood pressure is well controlled on lisinopril 40 mg a day 3. Pneumonia: On IV antibiotics per hospitalist 4. RA: Management per Dr. Sweeney Thank you for involving us in the consultation of this patient. Please feel free to call with any questions. We will sign off at this time. Extracted from: Title:APSO Note Author:Celia DIAZ ate:05/17/22 1. Pneumonia (J18.9: Pneumon ia, unspecified organism) CAP -CXR reviewed: RUL consolidation -MRSA swab: pending + procal. level, -COVID, resp. panel - neg -IV azithromycin, ceftriaxone - 05/14 -IVF 3L to date -Med nebs, flutter device, mucinex, supplemental 02 -Sputum cx. - pending -Bl. cx. - prelim - neg -Cortisol level - pending -Legionella antigen - pending -Recommend repeat CXR in 4 weeks as outpatient 2. Bronchospasm, acute (J98.01: Acute bronchospasm) 2/2 PNA -Med nebs -Ongoing wheezing today - pt. reports better -Prednisone 40mg daily x 3 days 3. Abnormal urinalysis (R82.90: Unspecified abnormal findings in urine) -Urine cx. - mixed skin contaminant 4. Hyponatremia (E87.1: Hypo-osmolality and hyponatremia) Acute on chronic -Likely 2/2 hypovolemia -Asymptomatic -Baseline Na level: 130 -132 -Urine Na low -> IVF 3L given -> levels downtrending -Consult nephpro - pending -TSH - wnl -Trend BMP 5. Dehydration (E86.0: Dehydration) IVF as above -Hold furosemide 6. Nausea & vomiting (R11.2: Nausea with vomiting, unspecified) Resolved -> tolerating po diet 7. Anemia (D64.9: Anemia, unspecified) Baseline hgb. level - 10.0 -Anemia panel - pending -No acute bleeding noted, hemodynamically stable -Trend labs 8. Generalized weakness (R53.1: Weakness) Multifactorial: see above -Tx. as above -PT/OT - pending 9. Diastolic dysfunction (I51.9: Heart disease, unspecified) Chronic diastolic HF - compensated at present -Hold furosemide 10. Hypertension (I10: Essential (primary) hypertension) -Lisinopril, 11. Hyperlipidemia (E78.5: Hyperlipidemia, unspecified) -Atorvastatin 12. Glaucoma (H40.9: Unspecified glaucoma) -Latanoprost, brimonidine 13. Rheumatoid arthritis (M06.9: Rheumatoid arthritis, unspecified) Followed by Dr. Guzman. -Hydroxychloroquine, folic acid, chronic 5mg prednisone daily -Hold arava and methotrexate while on daily increased Prednisone 14. Obesity (E66.9: Obesity, unspecified) BMI 30 -Educated on need for lifestyle modifications with goal of weight loss as obesity has a negative impact on co-morbid conditions. 15. History of CVA in adulthood (Z86.73: Personal history of transient ischemic attack (TIA), and cerebral infarction without residual deficits) Per patient in 2016. Hx PFO closure. -Asa, atorvastatin 16. History of DVT in adulthood (Z86.718: Personal history of other venous thrombosis and embolism) -Asa -Pt. states taken off AC tx. 17. DVT prophylaxis (Z29.9: Encounter for prophylactic measures, unspecified) -Heparin sq with early ambulation Orders: albuterol, 2.5 mg, 3 mL, Soln-Inh, Inhalation, q2hr PRN Shortness of breath or wheezing, Routine, Start date 05/17/22 8:04:00 EST albuterol-ipratropium, 3 mL, Soln-Inh, Inhalation, QID, Routine, Start date 05/17/22 12:00:00 EST brimonidine ophthalmic, 1 drop(s), Soln-Opth, Eye-Both, Daily, Routine, Start date 05/17/22 9:00:00 EST Flutter Valve MRSA Screen Occupational Therapy Evaluate Patient, Develop a Plan of Care and Implement Plan Physical Therapy Evaluate Patient, Develop a Plan of Care and Implement Plan -Plan discussed w/ patient, nursing staff and CRM. This report was transcribed using voice recognition software. Every effort was made to ensure accuracy, however, inadvertently computerized research management associate mistakes may be present. Extracted from: Title:APSO Note Author:Lissette Iyer MD Date: 05/16/22 1. Pneumonia (J18.9: Pneumon ia, unspecified organism) Probably bacterial, suspect gram negative organism. PCT 2.0. Respiratory panel negative CXR: RUL infiltrate Continue Zmax, Rocephin Blood cx NGTD. Sputum cx ordered. 2. Bronchospasm, acute (J98.01: Acute bronchospasm) Due to above Albuterol QID Ordered Prednisone 40mg daily x3d 3. Hyponatremia (E87.1: Hypo-osmolality and hyponatremia) Likely due to hypovolemia in setting of pneumonia. Urine Na low. NS at 75 cc/hr overnight, but Na has worsened not improved. Consult Nephro 4. Dehydration (E86.0: Dehydration) See above. Holding Lasix. 5. Nausea & vomiting (R11.2: Nausea with vomiting, unspecified) Due to pneumonia. Resolved. 6. Generalized weakness (R53.1: Weakness) Due to acute illness. PT Eval ordered. 7. Hypertension (I10: Essential (primary) hypertension) Controlled. 8. Diastolic dysfunction (I51.9: Heart disease, unspecified) Chronic diastolic CHF. Compensated. 9. History of CVA in adulthood (Z86.73: Personal history of transient ischemic attack (TIA), and cerebral infarction without residual deficits) Per patient in 2016. Hx PFO closure. ASA, Liptor 10. Hyperlipidemia (E78.5: Hyperlipidemia, unspecified) Lipitor 11. Rheumatoid arthritis (M06.9: Rheumatoid arthritis, unspecified) Followed by Dr. Guzman. Hold arava and methotrexate. On daily Prednisone 12. History of DVT in adulthood (Z86.718: Personal history of other venous thrombosis and embolism) 13. Obesity (E66.9: Obesity, unspecified) BMI 30 14. DVT prophylaxis (Z29.9: Encounter for prophylactic measures, unspecified) Heparin Orders: benzonatate, 200 mg = 2 cap(s), Cap, Oral, TID PRN Cough, Routine, Start date 05/16/22 8:18:00 EST, 05/16/22 8:18:00 EST predniSONE, 40 mg = 2 tab(s), Tab, Oral, Daily for 3 dose(s), Stop date 05/19/22 8:59:00 EST, Routine, Start date 05/16/22 9:00:00 EST, 05/16/22 8:18:00 EST Bladder Scan Extracted from: Title:Admission H & P Author:Eliazar OLIVER DO Date:05/15/22 1. Pneumonia (J18.9: Pneumon ia, unspecified organism) Note when I was done emergency department looking at several charts I do recall seeing a lobar infiltrate more suggestive of bacterial or viral, I attempted to view the film prior to going into see the patient but unfortunately the computer does not let me call up that image. Patient had rapid COVID antigen that was negative and denies any close contacts with any recent illnesses. Await radiologist interpretation. Check procalcitonin. Await blood cultures. Agree with Rocephin and Zithromax. Ordered: Procalcitonin 2. Hyponatremia (E87.1: Hypo-osmolality and hyponatremia) Suspect SIADH. 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 I suspect role of above, however note patient is also had small amount of vomiting suggesting risk for GI losses and she has been on Lasix. We will hold Lasix, will only gently hydrate and monitor serum sodium levels. We will check cortisol, thyroid function studies, serum and urine osmolality, urine electrolytes. Once verified can restrict free water Ordered: Cortisol Osmolality Osmolality Urine Sodium Level Urine TSH With T4fr Reflex 3. Dehydration (E86.0: Dehydration) Though patient is not objectively prerenal she did have a lower blood pressure in the emergency department / she admitted to what sounds like orthostatic symptoms at home, she has had decreased oral intake and admits to urine being dark in color. We will hydrate but do so gently to avoid too rapid of a serum sodium rise and will hold Lasix 4. Nausea & vomiting (R11.2: Nausea with vomiting, unspecified) Suspect secondary to above but to be complete we will check a UA 5. Generalized weakness (R53.1: Weakness) Suspect multifactorial including evolving infection, hyponatremia, dehydration. We will consult with physical therapy Ordered: UA With Cult Reflex 6. Hypertension (I10: Essential (primary) hypertension) Patient did have 1 blood pressure of 95/62 but is since normalized. Patient has been hydrated. Avoid lisinopril but to hold if less than 110 systolically. We will watch for potential need for titration of prednisone in light of above stress 7. Diastolic dysfunction (I51.9: Heart disease, unspecified) Patient denies any prior history of congestive heart failure. Patient does not appear volume overloaded. We will avoid excessive fluid administration not just for avoiding rapid rise in sodium but also to prevent causing volume overload. Prior echocardiogram had demonstrated grade 2 diastolic dysfunction with a normal ejection fraction 8. History of CVA in adulthood (Z86.73: Personal history of transient ischemic attack (TIA), and cerebral infarction without residual deficits) Patient implies it was an approximate year of 2015 states it was the period of time she was found PFO also implies around that time she had a lower extremity deep venous thrombosis. Question if she had a right to left migration of thrombus to result in a CVA based on her description. She has since had PFO closure. She remains on aspirin 9. Hyperlipidemia (E78.5: Hyperlipidemia, unspecified) Continue statin therapy 10. Rheumatoid arthritis (M06.9: Rheumatoid arthritis, unspecified) Followed by Dr. Guzman. While treating above the infection will transiently hold arava and methotrexate. We will continue prednisone however to prevent any precipitous drop in blood pressure potential HPA axis suppression 11. History of DVT in adulthood (Z86.718: Personal history of other venous thrombosis and embolism) See above. 12. Obesity (E66.9: Obesity, unspecified) Patient would benefit from weight loss 13. DVT prophylaxis (Z29.9: Encounter for prophylactic measures, unspecified) See above we will treat with heparin subcutaneous Orders: acetaminophen, 650 mg = 2 tab(s), Tab, Oral, q6hr PRN Pain, Routine, Start date 05/15/22 6:49:00 EST, 05/15/22 6:49:00 EST aspirin, 81 mg = 1 tab(s), Tab-EC, Oral, Daily, Routine, Start date 05/15/22 9:00:00 EST, 05/15/22 6:54:00 EST atorvastatin, 40 mg = 1 tab(s), Tab, Oral, Daily, Routine, Start date 05/15/22 9:00:00 EST, 05/15/22 6:54:00 EST azithromycin + Sodium Chloride 0.9% intravenous solution 250 mL, 500 mg = 1 EA, IV Piggyback, q24hr for 10 day(s), Stop date 05/25/22 20:59:00 EST, Routine, Start date 05/15/22 21:00:00 EST, 250 mL/hr, Infuse over 60 minute(s), 05/15/22 20:30:00 EST ceftriaxone + Sodium Chloride 0.9% intravenous solution 50 mL, 1,000 mg = 1 EA, IV Piggyback, q24hr for 10 day(s), Stop date 05/25/22 20:59:00 EST, Routine, Start date 05/15/22 21:00:00 EST, 100 mL/hr, Infuse over 30 minute(s), 05/15/22 21:00:00 EST folic acid, 4 mg = 4 tab(s), Tab, Oral, Monday, Routine, Start date 05/20/22 18:00:00 EST, 05/15/22 6:55:00 EST guaifenesin, 1,200 mg = 2 tab(s), Tab-ER, Oral, BID, Routine, Start date 05/15/22 9:00:00 EST, 05/15/22 6:49:00 EST heparin, 5,000 unit(s) = 1 mL, Injection, SubCutaneous, BID, Routine, Start date 05/15/22 9:00:00 EST, 05/15/22 6:49:00 EST hydrALAZINE, 10 mg = 0.5 mL, Injection, IV Push, q6hr PRN Other (see comment), Routine, Start date 05/15/22 6:49:00 EST, 05/15/22 6:49:00 EST hydroxychloroquine, 200 mg = 1 tab(s), Tab, Oral, BID, Routine, Start date 05/15/22 9:00:00 EST, 05/15/22 6:55:00 EST latanoprost ophthalmic, 1 drop(s), Soln-Opth, Eye-Both, qPM, Routine, Start date 05/15/22 16:30:00 EST lisinopril, 40 mg = 2 tab(s), Tab, Oral, Daily, Routine, Start date 05/15/22 9:00:00 EST, 05/15/22 6:56:00 EST predniSONE, 5 mg = 1 tab(s), Tab, Oral, Daily, Routine, Start date 05/15/22 9:00:00 EST, 05/15/22 6:55:00 EST Sodium Chloride 0.9% intravenous solution 1,000 mL, 1,000 mL, IV, 50 mL/hr, Routine, Start date 05/15/22 6:49:00 EST, 20 hour(s), Total volume (mL): 1,000, 72.8 kg, 1.76, m2 Ambulate with Assistance Basic Metabolic Panel Cardiac Monitoring CBC w/ Auto Diff Legionella Antigen Urine Notify Provider Vital Signs Notify Provider Vital Signs Oxygen Protocol Physical Therapy Evaluate Patient, Develop a Plan of Care and Implement Plan Place in Status Pneumonia Quality Measures Precautions Regular Diet Resuscitation Status - Full Sputum Culture Vital Signs Weight Admit patient as a general inpatient with the anticipation she will require greater than 2 midnight stay Extracted from: Title:ED Note Author:Rik Dean PA-C te:05/14/22 Generalized weakness (R53.1: Weakness) Pneumonia (J18.9: Pneumonia, unspecified organism) Orders: azithromycin + Sodium Chloride 0.9% intravenous solution 250 mL, 500 mg = 1 EA, IV Piggyback, Daily, STAT, Start date 05/14/22 21:30:00 EST, 250 mL/hr, Infuse over 60 minute(s), 05/14/22 21:30:00 EST ceftriaxone + Sodium Chloride 0.9% intravenous solution 50 mL, 1,000 mg = 1 EA, IV Piggyback, Once, Stop date 05/14/22 21:31:00 EST, STAT, Start date 05/14/22 21:31:00 EST, 100 mL/hr, Infuse over 30 minute(s), 05/14/22 21:31:00 EST ondansetron, 4 mg = 1 tab(s), Tab-Dis, Oral, Once, Stop date 05/14/22 20:07:00 EST, STAT, Start date 05/14/22 20:07:00 EST, 05/14/22 20:07:00 EST Sodium Chloride 0.9% intravenous solution, 1,000 mL, Soln-IV, IV, Once, Stop date 05/14/22 20:41:00 EST, STAT, Start date 05/14/22 20:41:00 EST, mL/hr, Infuse over 61, minute(s) Automated Diff Basic Metabolic Panel Blood Culture Charcoal Blood Culture Charcoal CBC w/ Auto Diff ED Physician consult Hospitalist for continued care eGFR Rapid COVID Antigen ([facility] [place]) XR Chest Single View Diagnostic Tests Pending * Legionella Antigen Urine 05/15/22 Future Scheduled Tests Laboratory* Hemoglobin and Hematocrit 09/21/21 [facility]12-28-2022 Hospital Discharge instructions Patient Education 05/18/2022 09:18:20 Community-Acquired Pneumonia, Adult, Uhmz-zu-Awil Community-Acquired Pneumonia, Adult Pneumonia is an infection of the lungs. It causes swelling in the airways of the lungs. Mucus and fluid may also build up inside the airways. One type of pneumonia can happen while a person is in a hospital. A different type can happen when a person is not in a hospital (community-acquired pneumonia). What are the causes? This condition is caused by germs (viruses, bacteria, or fungi). Some types of germs can be passed from one person to another. This can happen when you breathe in droplets from the cough or sneeze ofan infected person. What increases the risk? You are more likely to develop this condition if you: Have a long-term (chronic) disease, such as: ?Chronic obstructive pulmonary disease (COPD). ?Asthma. ?Cystic fibrosis. ?Congestive heart failure. ?Diabetes. ?Kidney disease. Have HIV. Have sickle cell disease. Have had your spleen removed. Do not take good care of your teeth and mouth (poor dental hygiene). Have a medical condition that increases the risk of breathing in droplets from your own mouth and nose. Have a weakened body defense system (immune system). Are a smoker. Travel to areas where the germs that cause this illness are common. Are around certain animals or the places they live. What are the signs or symptoms? A dry cough. A wet (productive) cough. Fever. Sweating. Chest pain. This often happens when breathing deeply or coughing. Fast breathing or trouble breathing. Shortness of breath. Shaking chills. Feeling tired (fatigue). Muscle aches. How is this treated? Treatment for this condition depends on many things. Most adults can be treated at home. In some cases, treatment must happen in a hospital. Treatment may include: Medicines given by mouth or through an IV tube. Being given extra oxygen. Respiratory therapy. In rare cases, treatment for very bad pneumonia may include: Using a machine to help you breathe. Having a procedure to remove fluid from around your lungs. Follow these instructions at home: Medicines Take gfyj-uyk-rlcqcfy and prescription medicines only as told by your doctor. ?Only take cough medicine if you are losing sleep. If you were prescribed an antibiotic medicine, take it as told by your doctor. Do not stop taking the antibiotic even if you start to feel better. General instructions Sleep with your head and neck raised (elevated). You can do this by sleeping in a recliner or by putting a few pillows under your head. Rest as needed. Get at least 8 hours of sleep each night. Drink enough water to keep your pee (urine) pale yellow. Eat a healthy diet that includes plenty of vegetables, fruits, whole grains, low-fat dairy products, and lean protein. Do not use any products that contain nicotine or tobacco. These include cigarettes, e-cigarettes, and chewing tobacco. If you need help quitting, ask your doctor. Keep all follow-up visits as told by your doctor. This is important. How is this prevented? A shot (vaccine) can help prevent pneumonia. Shots are often suggested for: People older than 65 years of age. People older than 19 years of age who: ?Are having cancer treatment. ?Have long-term (chronic) lung disease. ?Have problems with their body's defense system. You may also prevent pneumonia if you take these actions: Get the flu (influenza) shot every year. Go to the dentist as often as told. Wash your hands often. If you cannot use soap and water, use hand mysql dba. Contact a doctor if: You have a fever. You lose sleep because your cough medicine does not help. Get help right away if: You are short of breath and it gets worse. You have more chest pain. Your sickness gets worse. This is very serious if: ?You are an older adult. ?Your body's defense system is weak. You cough up blood. Summary Pneumonia is an infection of the lungs. Most adults can be treated at home. Some will need treatment in a hospital. Drink enough water to keep your pee pale yellow. Get at least 8 hours of sleep each night. This information is not intended to replace advice given to you by your health care provider. Make sure you discuss any questions you have with your health care provider. Document Released: 10/24/2008 Document Revised: 08/28/2019 Document Reviewed: 01/03/2019 [employer] Patient Education 2020 [employer]. Follow Up Care 05/14/2022 19:35:37 With:Cinda CORONEL Address: [address] [place] [id number] Business (1) When:05/19/2022 09:30:00 [facility]12-02-2022 Evaluation + Plan note Diagnostic Tests Pending * Vitamin E Level 04/22/22 * Vitamin B6 Lvl 04/22/22 Future Scheduled Tests Laboratory* Hemoglobin and Hematocrit 09/21/21 [facility]09-17-2022 Evaluation + Plan noteExtracted from: Title:ED Note Author:Brady Linn DO Date :02/05/22 Facial cellulitis (L03.211: Cellulitis of face) Orders: acetaminophen, 650 mg = 2 tab(s), Tab, Oral, Once, Stop date 02/04/22 23:51:00 EDT, STAT, Start date 02/04/22 23:51:00 EDT, 02/04/22 23:51:00 EDT acetaminophen-hydrocodone, 1 tab(s), Oral, q6hr for pain for 3 day(s), 5 tab(s), Refill(s) 0 acetaminophen-hydrocodone, 1 EA, Tab, Oral, Once, Stop date 02/05/22 1:23:00 EDT, STAT, Start date 02/05/22 1:23:00 EDT amoxicillin-clavulanate, 1 tab(s), Oral, q12hr for 10 day(s), 20 tab(s), Refill(s) 0 ampicillin-sulbactam + Sodium Chloride 0.9% intravenous solution 100 mL, 3 gram = 1 EA, IV Piggyback, q6hrFT, STAT, Start date 02/04/22 23:50:00 EDT, 200 mL/hr, Infuse over 30 minute(s), 02/04/22 23:50:00 EDT mupirocin topical, 1 neftali, Topical, TID, 22 gram, Refill(s) 0 Automated Diff C-Reactive Protein CBC w/ Auto Diff Comprehensive Metabolic Panel CT Soft Tissue Neck w/ Contrast eGFR Future Scheduled Tests Laboratory* Hemoglobin and Hematocrit 09/21/21 [facility]09-17-2022 Hospital Discharge instructions Patient Education 02/05/2022 01:44:13 Cellulitis, Adult, Jrir-rn-Jhji Cellulitis, Adult Cellulitis is a skin infection. The infected area is often warm, red, swollen, and sore. It occurs most often in the arms and lower legs. It is very important to get treated for this condition. What are the causes? This condition is caused by bacteria. The bacteria enter through a break in the skin, such as a cut, burn, insect bite, open sore, or crack. What increases the risk? This condition is more likely to occur in people who: Have a weak body defense system (immune system). Have open cuts, chandra, bites, or scrapes on the skin. Are older than 60 years of age. Have a blood sugar problem (diabetes). Have a long-lasting (chronic) liver disease (cirrhosis) or kidney disease. Are very overweight (obese). Have a skin problem, such as: ?Itchy rash (eczema). ?Slow movement of blood in the veins (venous stasis). ?Fluid buildup below the skin (edema). Have been treated with high-energy rays (radiation). Use IV drugs. What are the signs or symptoms? Symptoms of this condition include: Skin that is: ?Red. ?Streaking. ?Spotting. ?Swollen. ?Sore or painful when you touch it. ?Warm. A fever. Chills. Blisters. How is this diagnosed? This condition is diagnosed based on: Medical history. Physical exam. Blood tests. Imaging tests. How is this treated? Treatment for this condition may include: Medicines to treat infections or allergies. Home care, such as: ?Rest. ?Placing cold or warm cloths (compresses) on the skin. Hospital care, if the condition is very bad. Follow these instructions at home: Medicines Take pxvw-bzj-yhljhyb and prescription medicines only as told by your doctor. If you were prescribed an antibiotic medicine, take it as told by your doctor. Do not stop taking it even if you start to feel better. General instructions Drink enough fluid to keep your pee (urine) pale yellow. Do not touch or rub the infected area. Raise (elevate) the infected area above the level of your heart while you are sitting or lying down. Place cold or warm cloths on the area as told by your doctor. Keep all follow-up visits as told by your doctor. This is important. Contact a doctor if: You have a fever. You do not start to get better after 1 2 days of treatment. Your bone or joint under the infected area starts to hurt after the skin has healed. Your infection comes back. This can happen in the same area or another area. You have a swollen bump in the area. You have new symptoms. You feel ill and have muscle aches and pains. Get help right away if: Your symptoms get worse. You feel very sleepy. You throw up (vomit) or have watery poop (diarrhea) for a long time. You see red streaks coming from the area. Your red area gets larger. Your red area turns dark in color. These symptoms may represent a serious problem that is an emergency. Do not wait to see if the symptoms will go away. Get medical help right away. Call your local emergency services (911 in the [place] Do not drive yourself to the hospital. Summary Cellulitis is a skin infection. The area is often warm, red, swollen, and sore. This condition is treated with medicines, rest, and cold and warm cloths. Take all medicines only as told by your doctor. Tell your doctor if symptoms do not start to get better after 1 2 days of treatment. This information is not intended to replace advice given to you by your health care provider. Make sure you discuss any questions you have with your health care provider. Document Released: 10/24/2008 Document Revised: 09/27/2018 Document Reviewed: 09/27/2018 [employer] Patient Education 2020 [employer]. Follow Up Care 02/04/2022 23:28:13 With:Gabo Monsalve Address:Unknown When:02/08/2022 Comments:Take the antibiotics twice a day until you have completed the course, you can use the pain medication every 6 hours as needed for pain. Use the topical antibiotic 3 times a day to help with the infection. If this is worsening or if you have any new or concerning symptoms please return to the ED forfurther evaluation and management. Please follow-up with your primary care doctor in the next 2 to 3 days With:Cinda CORONEL Address: [place] [address] Business (1) When:02/08/2022 [facility]06-09-2022 Evaluation + Plan note Diagnostic Tests Pending * EDNA w/Reflex if POS 10/28/21 * Vitamin E Level 10/28/21 * Antineutrophil Cytoplasmic Antibody 10/28/21 * C3 Complement 10/28/21 * C4 Complement 10/28/21 * Cryoglobulin Qualitative with Quantitative Reflex 10/28/21 * Antiextractable Nuclear Antigen 10/28/21 * Vitamin B6 Lvl 10/28/21 Future Scheduled Tests Laboratory* Hemoglobin and Hematocrit 09/21/21 [facility]05-03-2022 Hospital Discharge instructions Patient Education 09/21/2021 14:07:00 Hypotension, Hnrl-zh-Ixbv Hypotension As your heart beats, it forces blood through your body. This force is called blood pressure. If youhave hypotension, you have low blood pressure. When your blood pressure is too low, you may not getenough blood to your brain or other parts of your body. This may cause you to feel weak, light-headed, have a fast heartbeat, or even pass out (faint). Low blood pressure may be harmless, or it may cause serious problems. What are the causes? Blood loss. Not enough water in the body (dehydration). Heart problems. Hormone problems. . A very bad infection. Not having enough of certain nutrients. Very bad allergic reactions. Certain medicines. What increases the risk? Age. The risk increases as you get older. Conditions that affect the heart or the brain and spinal cord (central nervous system). Taking certain medicines. Being . What are the signs or symptoms? Feeling: ?Weak. ?Light-headed. ?Dizzy. ?Tired (fatigued). Blurred vision. Fast heartbeat. Passing out, in very bad cases. How is this treated? Changing your diet. This may involve eating more salt (sodium) or drinking more water. Taking medicines to raise your blood pressure. Changing how much you take (the dosage) of some of your medicines. Wearing compression stockings. These stockings help to prevent blood clots and reduce swelling in your legs. In some cases, you may need to go to the hospital for: Fluid replacement. This means you will receive fluids through an IV tube. Blood replacement. This means you will receive donated blood through an IV tube (transfusion). Treating an infection or heart problems, if this applies. Monitoring. You may need to be monitored while medicines that you are taking wear off. Follow these instructions at home: Eating and drinking Drink enough fluids to keep your pee (urine) pale yellow. Eat a healthy diet. Follow instructions from your doctor about what you can eat or drink. A healthydiet includes: ?Fresh fruits and vegetables. ?Whole grains. ?Low-fat (lean) meats. ?Low-fat dairy products. Eat extra salt only as told. Do not add extra salt to your diet unless your doctor tells you to. Eat small meals often. Avoid standing up quickly after you eat. Medicines Take sdsp-ozq-oskbuwv and prescription medicines only as told by your doctor. ?Follow instructions from your doctor about changing how much you take of your medicines, if this applies. ?Do not stop or change any of your medicines on your own. General instructions Wear compression stockings as told by your doctor. Get up slowly from lying down or sitting. Avoid hot showers and a lot of heat as told by your doctor. Return to your normal activities as told by your doctor. Ask what activities are safe for you. Do not use any products that contain nicotine or tobacco, such as cigarettes, e- cigarettes, and chewing tobacco. If you need help quitting, ask your doctor. Keep all follow-up visits as told by your doctor. This is important. Contact a doctor if: You throw up (vomit). You have watery poop (diarrhea). You have a fever for more than 2 3 days. You feel more thirsty than normal. You feel weak and tired. Get help right away if: You have chest pain. You have a fast or uneven heartbeat. You lose feeling (have numbness) in any part of your body. You cannot move your arms or your legs. You have trouble talking. You get sweaty or feel light-headed. You pass out. You have trouble breathing. You have trouble staying awake. You feel mixed up (confused). Summary Hypotension is also called low blood pressure. It is when the force of blood pumping through your arteries is too weak. Hypotension may be harmless, or it may cause serious problems. Treatment may include changing your diet and medicines, and wearing compression stockings. In very bad cases, you may need to go to the hospital. This information is not intended to replace advice given to you by your health care provider. Make sure you discuss any questions you have with your health care provider. Document Released: 08/02/2010 Document Revised: 11/01/2018 Document Reviewed: 11/01/2018 [employer] Patient Education 2020 [employer]. Follow Up Care 09/21/2021 13:31:06 With:Cinda CORONEL Address: [employer] [place] [address] Business (1) When:09/24/2021 13:51:06 [facility]05-03-2022 Hospital Discharge instructions Patient Education 09/21/2021 12:54:53 Hemorrhoids Hemorrhoids Hemorrhoids are swollen veins in and around the rectum or anus. There are two types of hemorrhoids: Internal hemorrhoids. These occur in the veins that are just inside the rectum. They may poke through to the outside and become irritated and painful. External hemorrhoids. These occur in the veins that are outside the anus and can be felt as a painful swelling or hard lump near the anus. Most hemorrhoids do not cause serious problems, and they can be managed with home treatments such as diet and lifestyle changes. If home treatments do not help the symptoms, procedures can be done toshrink or remove the hemorrhoids. What are the causes? This condition is caused by increased pressure in the anal area. This pressure may result from various things, including: Constipation. Straining to have a bowel movement. Diarrhea. . Obesity. Sitting for long periods of time. Heavy lifting or other activity that causes you to strain. Anal sex. Riding a bike for a long period of time. What are the signs or symptoms? Symptoms of this condition include: Pain. Anal itching or irritation. Rectal bleeding. Leakage of stool (feces). Anal swelling. One or more lumps around the anus. How is this diagnosed? This condition can often be diagnosed through a visual exam. Other exams or tests may also be done,such as: An exam that involves feeling the rectal area with a gloved hand (digital rectal exam). An exam of the anal canal that is done using a small tube (anoscope). A blood test, if you have lost a significant amount of blood. A test to look inside the colon using a flexible tube with a camera on the end (sigmoidoscopy or colonoscopy). How is this treated? This condition can usually be treated at home. However, various procedures may be done if dietary changes, lifestyle changes, and other home treatments do not help your symptoms. These procedures canhelp make the hemorrhoids smaller or remove them completely. Some of these procedures involve surgery, and others do not. Common procedures include: Rubber band ligation. Rubber bands are placed at the base of the hemorrhoids to cut off their bloodsupply. Sclerotherapy. Medicine is injected into the hemorrhoids to shrink them. Infrared coagulation. A type of light energy is used to get rid of the hemorrhoids. Hemorrhoidectomy surgery. The hemorrhoids are surgically removed, and the veins that supply them are tied off. Stapled hemorrhoidopexy surgery. The surgeon carolin the base of the hemorrhoid to the rectal wall. Follow these instructions at home: Eating and drinking Eat foods that have a lot of fiber in them, such as whole grains, beans, nuts, fruits, and vegetables. Ask your health care provider about taking products that have added fiber (fiber supplements). Reduce the amount of fat in your diet. You can do this by eating low-fat dairy products, eating less red meat, and avoiding processed foods. Drink enough fluid to keep your urine pale yellow. Managing pain and swelling Take warm sitz baths for 20 minutes, 3 4 times a day to ease pain and discomfort. You may do this in a bathtub or using a portable sitz bath that fits over the toilet. If directed, apply ice to the affected area. Using ice packs between sitz baths may be helpful. ?Put ice in a plastic bag. ?Place a towel between your skin and the bag. ?Leave the ice on for 20 minutes, 2 3 times a day. General instructions Take uoym-yga-nnvphop and prescription medicines only as told by your health care provider. Use medicated creams or suppositories as told. Get regular exercise. Ask your health care provider how much and what kind of exercise is best for you. In general, you should do moderate exercise for at least 30 minutes on most days of the week (150 minutes each week). This can include activities such as walking, biking, or yoga. Go to the bathroom when you have the urge to have a bowel movement. Do not wait. Avoid straining to have bowel movements. Keep the anal area dry and clean. Use wet toilet paper or moist towelettes after a bowel movement. Do not sit on the toilet for long periods of time. This increases blood pooling and pain. Keep all follow-up visits as told by your health care provider. This is important. Contact a health care provider if you have: Increasing pain and swelling that are not controlled by treatment or medicine. Difficulty having a bowel movement, or you are unable to have a bowel movement. Pain or inflammation outside the area of the hemorrhoids. Get help right away if you have: Uncontrolled bleeding from your rectum. Summary Hemorrhoids are swollen veins in and around the rectum or anus. Most hemorrhoids can be managed with home treatments such as diet and lifestyle changes. Taking warm sitz baths can help ease pain and discomfort. In severe cases, procedures or surgery can be done to shrink or remove the hemorrhoids. This information is not intended to replace advice given to you by your health care provider. Make sure you discuss any questions you have with your health care provider. Document Released: 05/05/2001 Document Revised: 10/04/2019 Document Reviewed: 09/27/2018 [employer] Patient Education 2020 [employer] 09/21/2021 12:54:47 High-Fiber Diet High-Fiber Diet Fiber, also called dietary fiber, is a type of carbohydrate that is found in fruits, vegetables, whole grains, and beans. A high-fiber diet can have many health benefits. Your health care provider may recommend a high-fiber diet to help: Prevent constipation. Fiber can make your bowel movements more regular. Lower your cholesterol. Relieve the following conditions: ?Swelling of veins in the anus (hemorrhoids). ?Swelling and irritation (inflammation) of specific areas of the digestive tract (uncomplicated diverticulosis). ?A problem of the large intestine (colon) that sometimes causes pain and diarrhea (irritable bowel syndrome, IBS). Prevent overeating as part of a weight-loss plan. Prevent heart disease, type 2 diabetes, and certain cancers. What is my plan? The recommended daily fiber intake in grams (g) includes: 38 g for men age 50 or younger. 30 g for men over age 50. 25 g for women age 50 or younger. 21 g for women over age 50. You can get the recommended daily intake of dietary fiber by: Eating a variety of fruits, vegetables, grains, and beans. Taking a fiber supplement, if it is not possible to get enough fiber through your diet. What do I need to know about a high-fiber diet? It is better to get fiber through food sources rather than from fiber supplements. There is not a lot of research about how effective supplements are. Always check the fiber content on the nutrition facts label of any prepackaged food. Look for foodsthat contain 5 g of fiber or more per serving. Talk with a diet and client relations specialist (dietitian) if you have questions about specific foods that are recommended or not recommended for your medical condition, especially if those foods are not listed below. Gradually increase how much fiber you consume. If you increase your intake of dietary fiber too quickly, you may have bloating, cramping, or gas. Drink plenty of water. Water helps you to digest fiber. What are tips for following this plan? Eat a wide variety of high-fiber foods. Make sure that half of the grains that you eat each day are whole grains. Eat breads and cereals that are made with whole-grain flour instead of refined flour or white flour. Eat brown rice, bulgur wheat, or millet instead of white rice. Start the day with a breakfast that is high in fiber, such as a cereal that contains 5 g of fiber or more per serving. Use beans in place of meat in soups, salads, and pasta dishes. Eat high-fiber snacks, such as berries, raw vegetables, nuts, and popcorn. Choose whole fruits and vegetables instead of processed forms like juice or sauce. What foods can I eat? Fruits Berries. Pears. Apples. Oranges. Avocado. Prunes and raisins. Dried figs. Vegetables Sweet potatoes. Spinach. Kale. Artichokes. Cabbage. Broccoli. Cauliflower. Green peas. Carrots. Squash. Grains Whole-grain breads. Multigrain cereal. Oats and oatmeal. Brown rice. Barley. Bulgur wheat. Millet. Quinoa. Bran muffins. Popcorn. [place] wafer crackers. Meats and other proteins [place], kidney, and kwan beans. Soybeans. Split peas. Lentils. Nuts and seeds. Dairy Fiber-fortified yogurt. Beverages Fiber-fortified soy milk. Fiber-fortified orange juice. Other foods Fiber bars. The items listed above may not be a complete list of recommended foods and beverages. Contact a dietitian for more options. What foods are not recommended? Fruits Fruit juice. Cooked, strained fruit. Vegetables Fried potatoes. Canned vegetables. Well-cooked vegetables. Grains White bread. Pasta made with refined flour. White rice. Meats and other proteins Fatty cuts of meat. Fried chicken or fried fish. Dairy Milk. Yogurt. Cream cheese. Sour cream. Fats and oils [place]. Beverages Soft drinks. Other foods Cakes and pastries. The items listed above may not be a complete list of foods and beverages to avoid. Contact a dietitian for more information. Summary Fiber is a type of carbohydrate. It is found in fruits, vegetables, whole grains, and beans. There are many health benefits of eating a high-fiber diet, such as preventing constipation, lowering blood cholesterol, helping with weight loss, and reducing your risk of heart disease, diabetes, and certain cancers. Gradually increase your intake of fiber. Increasing too fast can result in cramping, bloating, and gas. Drink plenty of water while you increase your fiber. The best sources of fiber include whole fruits and vegetables, whole grains, nuts, seeds, and beans. This information is not intended to replace advice given to you by your health care provider. Make sure you discuss any questions you have with your health care provider. Document Released: 05/08/2006 Document Revised: 03/12/2018 Document Reviewed: 03/12/2018 [employer] Patient Education 2020 [employer]. 09/21/2021 12:54:43 Diverticulosis Diverticulosis Diverticulosis is a condition that develops when small pouches (diverticula) form in the wall of the large intestine (colon). The colon is where water is absorbed and stool is formed. The pouches form when the inside layer of the colon pushes through weak spots in the outer layers of the colon. Youmay have a few pouches or many of them. What are the causes? The cause of this condition is not known. What increases the risk? The following factors may make you more likely to develop this condition: Being older than age 60. Your risk for this condition increases with age. Diverticulosis is rare among people younger than age 30. By age 80, many people have it. Eating a low-fiber diet. Having frequent constipation. Being overweight. Not getting enough exercise. Smoking. Taking fsbf-ptj-kjdadga pain medicines, like aspirin and ibuprofen. Having a family history of diverticulosis. What are the signs or symptoms? In most people, there are no symptoms of this condition. If you do have symptoms, they may include: Bloating. Cramps in the abdomen. Constipation or diarrhea. Pain in the lower left side of the abdomen. How is this diagnosed? This condition is most often diagnosed during an exam for other colon problems. Because diverticulosis usually has no symptoms, it often cannot be diagnosed independently. This condition may be diagnosed by: Using a flexible scope to examine the colon (colonoscopy). Taking an X-ray of the colon after dye has been put into the colon (barium enema). Doing a CT scan. How is this treated? You may not need treatment for this condition if you have never developed an infection related to diverticulosis. If you have had an infection before, treatment may include: Eating a high-fiber diet. This may include eating more fruits, vegetables, and grains. Taking a fiber supplement. Taking a live bacteria supplement (probiotic). Taking medicine to relax your colon. Taking antibiotic medicines. Follow these instructions at home: Drink 6 8 glasses of water or more each day to prevent constipation. Try not to strain when you have a bowel movement. If you have had an infection before: ?Eat more fiber as directed by your health care provider or your diet and client relations specialist (dietitian). ?Take a fiber supplement or probiotic, if your health care provider approves. Take bkro-qbl-hmtyvdk and prescription medicines only as told by your health care provider. If you were prescribed an antibiotic, take it as told by your health care provider. Do not stop taking the antibiotic even if you start to feel better. Keep all follow-up visits as told by your health care provider. This is important. Contact a health care provider if: You have pain in your abdomen. You have bloating. You have cramps. You have not had a bowel movement in 3 days. Get help right away if: Your pain gets worse. Your bloating becomes very bad. You have a fever or chills, and your symptoms suddenly get worse. You vomit. You have bowel movements that are bloody or black. You have bleeding from your rectum. Summary Diverticulosis is a condition that develops when small pouches (diverticula) form in the wall of the large intestine (colon). You may have a few pouches or many of them. This condition is most often diagnosed during an exam for other colon problems. If you have had an infection related to diverticulosis, treatment may include increasing the fiber in your diet, taking supplements, or taking medicines. This information is not intended to replace advice given to you by your health care provider. Make sure you discuss any questions you have with your health care provider. Document Released: 02/02/2005 Document Revised: 04/20/2018 Document Reviewed: 03/27/2017 [employer] Patient Education 2020 [employer]. Follow Up Care 09/09/2021 14:08:18 With:Julianne Brar CNP Address: When:3 months [facility] 05-03-2022 Evaluation + Plan note Future Scheduled Tests Laboratory* Hemoglobin and Hematocrit 09/21/21 [facility] 05-03-2022 Evaluation + Plan noteExtracted from: Title:ED Note Author:Sarah Higgins PA-C . Date:09/21/21 1. Encounter for medical scr eening examination (Z13.9: Encounter for screening, unspecified) 2. Blood pressure, low, incidental finding (R03.1: Nonspecific low blood- pressure reading) The patient was interviewed and examined. She is resting comfortably. We took repeated blood pressures. The patient was never hypotensive here in our department. Her initial blood pressure was 135/61. Repeat blood pressure was 119/65. The next was 110/61. The patient remained asymptomatic. The patient will be discharged to home in stable condition. She is to follow-up with her primary care physician. She is to return to the emergency department for any further problems or concerns. Future Scheduled Tests Laboratory* Hemoglobin and Hematocrit 09/21/21 [facility]05-03-2022 Evaluation + Plan note Future Scheduled Tests Laboratory* Hemoglobin and Hematocrit 09/21/21 [facility]04-15-2022 Hospital Discharge instructions Patient Education 09/03/2021 09:32:57 Colonoscopy, Care After Surgery [facility] (CUSTOM) Colonoscopy Care After Surgery Please read the instructions outlined below and refer to this sheet in the next few weeks. These discharge instructions provide you with general information on caring for yourself after you leave thespital. Your doctor may also give you specific instructions. While your treatment has been planned according to the most current medical practices available, unavoidable complications occasionally occur. If you have any problems or questions after discharge, please call your doctor. ACTIVITY You may resume your regular activity, but move at a slower pace for the next 24 hours. Take frequent rest periods for the next 24 hours. Walking will help get rid of the air and reduce the bloated feeling in your abdomen (belly). No driving for 24 hours (because of the anesthesia (medicine) used during the test). You may shower. Do not sign any important legal documents or operate any machinery for 24 hours (because of the anesthesia used during the test). NUTRITION Drink plenty of fluids. You may resume your normal diet as instructed by your doctor. Begin with a light meal and progress to your normal diet. Heavy or fried foods are harder to digestand may make you feel nauseated (sick to your stomach). Avoid alcoholic beverages for 24 hours or as instructed. MEDICATIONS You may resume your normal medications unless your doctor tells you otherwise. WHAT YOU CAN EXPECT TODAY Some feelings of bloating in the abdomen. Passage of more gas than usual. Spotting of blood in your stool or on the toilet paper. FOLLOW-UP Your doctor will discuss the results of your test with you. SEEK IMMEDIATE MEDICAL ATTENTION IF: There is more than a spotting of blood in your stool. There is abdominal distention (your abdomen is swollen). There is vomiting. You have a temperature over 101.5 F. There is abdominal pain or discomfort that is severe or gets worse throughout the day. 09/03/2021 09:32:57 Diverticulosis [facility] (CUSTOM) Diverticulosis Many people have small pouches in their colon called diverticulum. The diverticulum bulge outward through weak spots in the colon. You could have one or more of these pouches in the colon. The condition of having these pouches in the colon is called diverticulosis or diverticular disease. Diverticulosis is usually diagnosed by tests to evaluate something else. For example, you may have had a colonoscopy to screen for colon cancer when the diverticulosis was found. Most people with diverticulosis do not have any discomfort or problems. If symptoms develop, they may include mild cramps, bloating, and constipation. A complication of this condition is called diverticulitis. This is when the diverticulum become inflamed and infected. How to treat diverticulosis: Increasing the amount of fiber in the diet may reduce symptoms of diverticulosis and prevent complications such as diverticulitis (infected diverticuli). Fiber keeps stool soft and lowers pressure inside the colon so that bowel contents can move througheasily. You should eat 20 to 35 grams of fiber each day. The table below shows the amount of fiber in some foods that you can easily add to your diet. Adding fiber slowly may decrease the bloating and fullness sometimes felt with an immediate high fiber diet. The doctor may also recommend taking a fiber product such as Citrucel or Metamucil once a day. In the past people with diverticulosis were to avoid nuts, corn, and seeds. This has not been foundto be true. If you find that certain foods create cramping or bloating, avoid that food. Foods high in fiber include: Fresh fruits, fresh vegetables, legumes (beans), whole wheat bread, bran muffins or cereal, and nuts. See the table below for examples of high fiber foods. Remember, your goal is 20- 35 grams per day. Amount of fiber in different foods Food Serving Grams of fiber Fruits Apple (with skin) 1 medium apple 4.4 Banana 1 medium banana 3.1 Oranges 1 orange 3.1 Prunes 1 cup, pitted 12.4 Juices Apple, unsweetened, w/added ascorbic acid 1 cup 0.5 Grapefruit, white, canned, sweetened 1 cup 0.2 Grape, unsweetened, w/added ascorbic acid 1 cup 0.5 [place] 1 cup 0.7 Vegetables Cooked Green beans 1 cup 4.0 Carrots 1/2 cup sliced 2.3 Peas 1 cup 8.8 Potato (baked, with skin) 1 medium potato 3.8 Raw [place] (with peel) 1 cucumber 1.5 Lettuce 1 cup shredded 0.5 Tomato 1 medium tomato 1.5 Spinach 1 cup 0.7 Legumes Baked beans, canned, no salt added 1 cup 13.9 Kidney beans, canned 1 cup 13.6 [place] beans, canned 1 cup 11.6 Lentils, boiled 1 cup 15.6 Breads, pastas, flours Bran muffins 1 medium muffin 5.2 Oatmeal, cooked 1 cup 4.0 White bread 1 slice 0.6 Whole-wheat bread 1 slice 1.9 Pasta and rice, cooked Macaroni 1 cup 2.5 Rice, brown 1 cup 3.5 Rice, white 1 cup 0.6 Spaghetti (regular) 1 cup 2.5 Nuts Almonds 1/2 cup 8.7 Peanuts 1/2 cup 7.9 Chart from [facility] 2013. SEEK IMMEDIATE MEDICAL CARE IF: You develop abdominal (belly) pain. An oral temperature above _ 101 F__develops. Repeated vomiting occurs. Blood is being passed in stools (bright red or black tarry stools). You develop any bowel problems or changes which you have not had before. Extra Information: To learn how much fiber and other nutrients are in different foods, visit the [place] Department of Agriculture (USDA) National Nutrient Database at: http://www.nal.usda.gov/fnic/foodcomp/search/ Created using data from the USDA National Nutrient Database for Standard Reference. Available at http://www.nal.usda.gov/fnic/foodcomp/search/. Information adapted from: [employer] Patient Information 2009 [employer]. [employer] 2012 http://www.[employer]/contents/laaksxgzsadv-jmqkuvw-umzixp-the-basics 09/03/2021 09:32:57 Hemorrhoids Hemorrhoids Hemorrhoids are swollen veins in and around the rectum or anus. There are two types of hemorrhoids: Internal hemorrhoids. These occur in the veins that are just inside the rectum. They may poke through to the outside and become irritated and painful. External hemorrhoids. These occur in the veins that are outside the anus and can be felt as a painful swelling or hard lump near the anus. Most hemorrhoids do not cause serious problems, and they can be managed with home treatments such as diet and lifestyle changes. If home treatments do not help the symptoms, procedures can be done toshrink or remove the hemorrhoids. What are the causes? This condition is caused by increased pressure in the anal area. This pressure may result from various things, including: Constipation. Straining to have a bowel movement. Diarrhea. . Obesity. Sitting for long periods of time. Heavy lifting or other activity that causes you to strain. Anal sex. Riding a bike for a long period of time. What are the signs or symptoms? Symptoms of this condition include: Pain. Anal itching or irritation. Rectal bleeding. Leakage of stool (feces). Anal swelling. One or more lumps around the anus. How is this diagnosed? This condition can often be diagnosed through a visual exam. Other exams or tests may also be done,such as: An exam that involves feeling the rectal area with a gloved hand (digital rectal exam). An exam of the anal canal that is done using a small tube (anoscope). A blood test, if you have lost a significant amount of blood. A test to look inside the colon using a flexible tube with a camera on the end (sigmoidoscopy or colonoscopy). How is this treated? This condition can usually be treated at home. However, various procedures may be done if dietary changes, lifestyle changes, and other home treatments do not help your symptoms. These procedures canhelp make the hemorrhoids smaller or remove them completely. Some of these procedures involve surgery, and others do not. Common procedures include: Rubber band ligation. Rubber bands are placed at the base of the hemorrhoids to cut off their bloodsupply. Sclerotherapy. Medicine is injected into the hemorrhoids to shrink them. Infrared coagulation. A type of light energy is used to get rid of the hemorrhoids. Hemorrhoidectomy surgery. The hemorrhoids are surgically removed, and the veins that supply them are tied off. Stapled hemorrhoidopexy surgery. The surgeon carolin the base of the hemorrhoid to the rectal wall. Follow these instructions at home: Eating and drinking Eat foods that have a lot of fiber in them, such as whole grains, beans, nuts, fruits, and vegetables. Ask your health care provider about taking products that have added fiber (fiber supplements). Reduce the amount of fat in your diet. You can do this by eating low-fat dairy products, eating less red meat, and avoiding processed foods. Drink enough fluid to keep your urine pale yellow. Managing pain and swelling Take warm sitz baths for 20 minutes, 3 4 times a day to ease pain and discomfort. You may do this in a bathtub or using a portable sitz bath that fits over the toilet. If directed, apply ice to the affected area. Using ice packs between sitz baths may be helpful. ?Put ice in a plastic bag. ?Place a towel between your skin and the bag. ?Leave the ice on for 20 minutes, 2 3 times a day. General instructions Take gxlo-phf-lqhwakb and prescription medicines only as told by your health care provider. Use medicated creams or suppositories as told. Get regular exercise. Ask your health care provider how much and what kind of exercise is best for you. In general, you should do moderate exercise for at least 30 minutes on most days of the week (150 minutes each week). This can include activities such as walking, biking, or yoga. Go to the bathroom when you have the urge to have a bowel movement. Do not wait. Avoid straining to have bowel movements. Keep the anal area dry and clean. Use wet toilet paper or moist towelettes after a bowel movement. Do not sit on the toilet for long periods of time. This increases blood pooling and pain. Keep all follow-up visits as told by your health care provider. This is important. Contact a health care provider if you have: Increasing pain and swelling that are not controlled by treatment or medicine. Difficulty having a bowel movement, or you are unable to have a bowel movement. Pain or inflammation outside the area of the hemorrhoids. Get help right away if you have: Uncontrolled bleeding from your rectum. Summary Hemorrhoids are swollen veins in and around the rectum or anus. Most hemorrhoids can be managed with home treatments such as diet and lifestyle changes. Taking warm sitz baths can help ease pain and discomfort. In severe cases, procedures or surgery can be done to shrink or remove the hemorrhoids. This information is not intended to replace advice given to you by your health care provider. Make sure you discuss any questions you have with your health care provider. Document Released: 05/05/2001 Document Revised: 10/04/2019 Document Reviewed: 09/27/2018 [employer] Patient Education 2020 [employer]. [facility] Miscellaneous Notes* Telephone Encounter - Juliana Anderson Rn, RN - 03/26/2015 10:48 AM EST Patient continues participation with outpatient therapy, ambulating with cane. Incision dry/clear. Some minimal discomfort exists, swelling remains, instructed to ice area for relief. Follow up appointment with Dr. Sutton in April. Explained this would be final telephone call, but if need arisesto call me. * Telephone Encounter - Juliana Anderson Rn, RN - 03/19/2015 10:51 AM EDT Patient continuing with outpatient therapy, ambulating with no device when indoors, using a walker for outside. Incision clear, no drainage. Minimal pain, mostly discomfort, icing hip for relief. Appointment tomorrow at Dr. Sutton's office. No questions/concerns voiced * Telephone Encounter - Juliana Anderson Rn, RN - 03/12/2015 1:33 PM EDT Patient will begin outpatient therapy today, continues to use walker to ambulate. Pain is minimal, mostly discomfort from leg feeling stiff. Incision continues to heal, no redness or drainage. Has follow-up appointment with Lyly on March 19 * Telephone Encounter - Juliana Anderson Rn, RN - 03/04/2015 1:39 PM EDT Spoke with physical therapist at [facility]. Patient doing very well , ambulating 150 feet with wheeled walker and stand-by assist. Understands her hip precautions. Incision dry and intact. Pain ranging around a 5. Anticipate discharge home on Wednesday 03/07 [facility] note No data available for this section [facility] Future Appointments Appointment Date:01/20/2023 11:15:00 AM Scheduled Provider: Location:[facility] [place] Appointment Type:PT Eval () Diagnostic Tests Pending * PTH Intact 11/21/22 [facility] noteNo assessment information available [facility] Work Phone: Evaluation note* Diagnosis MRSA (methicillin resistant Staphylococcus aureus)- Primary Methicillin resistant Staphylococcus aureus in conditions classified elsewhere and of unspecified site Primary osteoarthritis of left knee Primary localized osteoarthrosis, lower leg Pre-op testing Preoperative examination, unspecified Status post right knee replacement History of right hip replacement Status post bilateral knee replacements Knee joint replacement by other means Rheumatoid arthritis with negative rheumatoid factor, involving unspecified site ([facility]) Primary osteoarthritis of left knee Primary localized osteoarthrosis, lower leg documented in this encounter [facility] note* Diagnosis Primary osteoarthritis of left knee- Primary Primary localized osteoarthrosis, lower leg Primary osteoarthritis of left knee Primary localized osteoarthrosis, lower leg documented in this encounter [facility] note* Diagnosis Pre-op evaluation- Primary Preoperative examination, unspecified Cerebrovascular accident (CVA), unspecified mechanism (HCC) Deep vein thrombosis (DVT) of popliteal vein of left lower extremity, unspecified chronicity (HCC) Rheumatoid arthritis, involving unspecified site, unspecified whether rheumatoid factor present ([facility]) Obesity without serious comorbidity, unspecified classification, unspecified obesity type S/P patent foramen ovale closure Other postprocedural status Hypertension, unspecified type Pulmonary hypertension (HCC) Other chronic pulmonary heart diseases Primary osteoarthritis of left knee Primary localized osteoarthrosis, lower leg documented in this encounter [facility] note* Diagnosis Onset Date Resolution Status Anemia acute Chronic back pain acute Chronic hyponatremia acute CKD (chronic kidney disease) acute Hyperlipidemia acute Hypertension acute Impaired mobility and activities of daily living acute Postoperative wound infection acute Pulmonary hypertension acute Rheumatoid arthritis acute S/P total knee arthroplasty acute [facility] Work Phone: Evaluation note* Diagnosis S/P total knee replacement, left- Primary documented in this encounter [facility] Discharge instructions No data available for this section [facility] No data available for this section [facility] - Pending Review Specialty Diagnoses / Procedures Referred By Jonny t Referred To Contact Physical Therapy Diagnoses Primary osteoarthritis of left knee Procedures [place] [address] [place] [id number] Referral ID Status Reason Start Date Expiration Date V isits Requested Visits Authorized [id number] Pending Review 10/27/2022 01/25/2023 1 1 * Diagnostic Procedure Only (Routine) - Closed Specialty Diagnoses / Procedures Referred By Jonny love Referred To Contact XR IMAGING Diagnoses Status post bilateral knee replacements Procedures XR KNEE GENERAL 4V AP BOTH/PA BOTH/LAT/MERC BILATERAL RADIOLOGIC EXAM KNEE COMPLETE 4/[place] [address] [place] [id number] Xr Imaging Referral ID Status Reason Start Date Expiration Date V isits Requested Visits Authorized [id number] Closed Auto-Generate d Referral 10/25/2022 11/24/2023 1 1 [facility] for referral (narrative)* - Pending Review Specialty Diagnoses / Procedures Referred By Jonny love Referred To Contact Physical Therapy Diagnoses Primary osteoarthritis of left knee Procedures [place]SULT [place] [address] [place] [id number] Referral ID Status Reason Start Date Expiration Date V isits Requested Visits Authorized [id number] Pending Review 11/21/2022 02/19/2023 1 1 [facility] Diagnostic Procedure Only (Routine) - Closed Specialty Diagnoses / Procedures Referred By Jonny t Referred To Contact XR IMAGING Diagnoses S/P total knee replacement, left Procedures XR KNEE POST OP 3V AP/LAT/MERCHANT LEFT RADIOLOGIC EXAMINATION KNEE 3 VIEWS Shan Box MD [address] [place] [address] [place] [address] Referral ID Status Reason Start Date Expiration Date V isits Requested Visits Authorized [id number] Closed Auto-Generate d Referral 04/06/2023 05/05/2024 1 1 [facility] Summary Purpose Family History No Family History Records FoundNo Family History Records FoundNo Family History Records FoundNo Family History Records FoundNo Family History Records FoundNo Family History Records FoundNo Family History Records FoundNo Family History Records FoundNo Family History Records FoundNo Family History Records Found Advance Directives No Advanced Directives Records Found Advance Directive Response Recorded Date/ Time Advance Directives No December 28 12:34pm Advance Directive Response Recorded Date/ Time Advance Directives No December 28 11:34am Documents on File Type Date Recorded 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 Advance Directive(s) 01/17/2023 6:23 AM Documents on File Type Date Recorded 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 anation Advance Directive(s) 01/17/2023 6:23 AM Documents on File Type Date Recorded 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 anation Power of Deputy Director 11/02/2022 4:40 PM Advance Directives and Livin g Will 11/02/2022 4:36 PM Chief Complaint and Reason for Visit Chief Complaint m25.50 z11.59 hand p ain wrist pain Chief Complaint Left TKA Reason for Visit Anemia Chronic back pain Chronic hyponatremia CKD (chronic kidney disease) Hyperlipidemia Hypertension Impaired mobility and activities of daily living Postoperative wound infection Pulmonary hypertension Rheumatoid arthritis S/P total knee arthroplasty Additional Source Comments INFORMATION SOURCE (unrecogn ized section and content) DATE CREATED AUTHOR 12/17/2017 [facility] DATE CREATED AUTHOR AUTHOR'S ORGANIZ ATION 03/19/2021 [facility] DATE CREATED AUTHOR AUTHOR'S ORGANIZ ATION 04/16/2021 [facility] DATE CREATED AUTHOR AUTHOR'S ORGANIZ ATION 07/21/2021 [facility] DATE CREATED AUTHOR AUTHOR'S ORGANIZ ATION 11/10/2022 [facility] DATE CREATED AUTHOR AUTHOR'S ORGANIZ ATION 01/23/2023 [facility] DATE CREATED AUTHOR AUTHOR'S ORGANIZ ATION 04/13/2023 [facility] DATE CREATED AUTHOR AUTHOR'S ORGANIZ ATION 04/19/2023 [facility] DATE CREATED AUTHOR AUTHOR'S ORGANIZ ATION 07/07/2023 [facility] DATE CREATED AUTHOR AUTHOR'S ORGANIZ ATION 07/09/2023 [facility] Source Comments (unrecognize d section and content) In the event this informatio n is protected by the Federal Confidentiality of Alcohol and Drug Abuse Patient Records regulations: The Federal rules restrict any use of the information to criminally investigate or prosecute any alcohol or drug abuse patient.[facility] the event this information is protected by the Federal Confidentiality of Alcohol and Drug Abuse Patient Records regulations: The Federal rules restrict any use of the information to criminally investigate or prosecute any alcohol or drug abuse patient.[facility] the event this information is protected by the Federal Confidentiality of Alcohol and Drug Abuse Patient Records regulations: The Federal rules restrict any use of the information to criminally investigate or prosecute any alcohol or drug abuse patient.[facility] the event this information is protected by the Federal Confidentiality of Alcohol and Drug Abuse Patient Records regulations: The Federal rules restrict any use of the information to criminally investigate or prosecute any alcohol or drug abuse patient.[facility] Center[facility] the event this information is protected by the Federal Confidentiality of Alcohol and Drug Abuse Patient Records regulations: The Federal rules restrict any use of the information to criminally investigate or prosecute any alcohol or drug abuse patient.[facility] Center[facility] the event this information is protected by the Federal Confidentiality of Alcohol and Drug Abuse Patient Records regulations: The Federal rules restrict any use of the information to criminally investigate or prosecute any alcohol or drug abuse patient.[facility] Center[facility] the event this information is protected by the Federal Confidentiality of Alcohol and Drug Abuse Patient Records regulations: The Federal rules restrict any use of the information to criminally investigate or prosecute any alcohol or drug abuse patient.[facility] Reason for Visit (unrecogniz ed section and content) Reason Onset Date Comments Surgical Followup 03/04/2015 Reason Comments Radiology XR Reason Comments New Reason Comments Anesthesia Consult Left knee pain Reason Comments Established Patient Follow Up Post Op Knee Replacement Reason Comments Established Patient Follow Up Post Op Knee Replacement Care Teams (unrecognized sec tion and content) Team Status: Inactive Member Role Status Dates Leonel Aguirre MD Attending Provider Active Domestic Maid Relationship Specialty Start Date End Date Cinda Coronel [address] [place] [address] PCP - General Family Medicine 03/12/18 Domestic Maid Relationship Specialty Start Date End Date Cinda Coronel [address] [facility] [place] [address] PCP - General Family Medicine 03/12/18 Domestic Maid Relationship Specialty Start Date End Date Cinda Coronel [address] [place] [address] PCP - General Family Medicine 03/12/18 Domestic Maid Relationship Specialty Start Date End Date BernaCinda donald [address] [place] [address] PCP - General Family Medicine 03/12/18 Team Status: Active Member Role Status Dates PHYSICIAN NO FAMILY Primary Care Provider Active Team Status: Inactive Member Role Status Dates PHYSICIAN NO FAMILY Primary Care Provider Active Syd Muir MD Admit Provider, Attending Provider A hortensia Cruz RN Other Provider Active Nathalie Mack RN Other Provider Active Rasheeda Olsen , OTIS Other Provider Active Abril Durán , OTIS Other Provider Active Clarissa Souza , OTIS Other Provider Active Fadumo Virk , OTIS Other Provider Active Will Brown MD Other Provider Active Staci Dowell , SCIENCES DEAN Other Provider Active Guerline Hickman , DO Other Provider Active Levar Rodriguez MD Other Provider Active Tom Jenkins , DO Other Provider Active Sotero Daley MD Other Provider Active Sue Beasley MD Other Provider Active Ivy Thomas , ANP- Other Provider Active Pema Patel MD Other Provider Active Brown Young MD Other Provider Active Simi Alcaraz MD Other Provider Active Annia Esparza MD Other Provider Active Shan Hou , DO Other Provider Active Mihaela Brown MD Other Provider Active Robin Randhawa MD Other Provider Active Diane Gross , NETWORK SUPPORT ENGINEER-C Other Provider Active Enrique Rousseau MD Other Provider Active Conrad Davison MD Other Provider Active Montez Velazquez MD Other Provider Active Malcolm Burgos MD Other Provider Active Shantell Patterson , DO Other Provider Active Carlos Garcia , DO Other Provider Active Wm Belle , DO Other Provider Active Kiki Michel SCIENCES DEAN Other Provider Active Coy Arais , DO Other Provider Active Louis Franklin MD Other Provider Active Yari Solorzano SCIENCES DEAN Other Provider Active Shira Sosa , SCIENCES DEAN Other Provider Active Christina Cross MD Other Provider Active Saul Rucker MD Other Provider Active Juliana Mcintyre , SCIENCES DEAN Other Provider Active Bhumi Jacques RN Other Provider Active Domestic Maid Relationship Specialty Start Date End Date Cinda Coronel, PA-C [address] [place] [address] PCP - General Family Medicine 03/12/18 Team Status: Inactive Member Role Status Dates PHYSICIAN NO FAMILY Primary Care Provider Active Syd Muir MD Admit Provider, Attending Provider A ctive Rosa Maria Cruz RN Other Provider Active Nathalie Mack RN Other Provider Active Rasheeda Olsen , OTIS Other Provider Active Abril Durán , OTIS Other Provider Active Clarissa Souza , OTIS Other Provider Active Fadumo Virk , OTIS Other Provider Active Will Brown MD Other Provider Active Staci Dowell , SCIENCES DEAN Other Provider Active Guerline Hickman , DO Other Provider Active Levar Rodriguez MD Other Provider Active Tom Jenkins , DO Other Provider Active Sotero Daley MD Other Provider Active Sue Beasley MD Other Provider Active Ivy Gannon , SCIENCES DEAN Other Provider Active Pema Patel MD Other Provider Active Brown Young MD Other Provider Active Simi Alcaraz MD Other Provider Active Annia Esparza MD Other Provider Active Shan Hou , DO Other Provider Active Mihaela Brown MD Other Provider Active Robin Randhawa MD Other Provider Active Diane Gross , NETWORK SUPPORT ENGINEER-C Other Provider Active Enrique Rousseau MD Other Provider Active Conrad Davison MD Other Provider Active Montez Velazquez MD Other Provider Active Malcolm Burgos MD Other Provider Active Shantell Patterson , DO Other Provider Active Carlos Garcia , DO Other Provider Active Wm Belle , DO Other Provider Active Kiki Michel , SCIENCES DEAN Other Provider Active Coy Arias , DO Other Provider Active Louis Franklin MD Other Provider Active Yari Solorzano , SCIENCES DEAN Other Provider Active Shira Sosa , SCIENCES DEAN Other Provider Active Christina Cross MD Other Provider Active Saul Rucker MD Other Provider Active Juliana Mcintyre , SCIENCES DEAN Other Provider Active Bhumi Jacques RN Other Provider Active Team Status: Inactive Member Role Status Dates PHYSICIAN NO FAMILY Primary Care Provider Active Leonel Aguirre MD Attending Provider Active Domestic Maid Relationship Specialty Start Date End Date Cinda Coronel PA-C [address] [place] [address] PCP - General Family Medicine 03/12/18 Domestic Maid Relationship Specialty Start Date End Date Alysia Barrientos DO [address] [place] [address] PCP - General Family Medicine 10/31/22 Goals (unrecognized section and content) Goals may be documented in a n alternate section FOR RECORDS PERTAINING TO PATIENTS WHO ARE OR HAVE BEEN ENROLLED IN A CHEMICAL DEPENDENCY/SUBSTANCEABUSE PROGRAM, SOME INFORMATION MAY BE OMITTED. This clinical summary was aggregated from multiple sources. Caution should be exercised in using it in the provision of clinical care. This summary normalizes information from multiple sources, and as a consequence, information in this document may materially change the coding, format and clinical context of patient data. In addition, data may be omitted in some cases. CLINICAL DECISIONS SHOULD BE BASED ON THE PRIMARY CLINICAL RECORDS. [employer] provides no warranty or guarantee of the accuracy or completeness of information in this document.
[2023-07-27 07:12] VITALS: BP 142/73; PULSE 77; RESP 18; O2SAT 98
[2023-07-27] MEDS: PROPARACAINE HCL 0.5% 300 DROP/15 ML BOTTLE OP ×4 (07:23→07:55)
[2023-07-27] MEDS: BESIFLOXACIN HCL 100 DROP DROPS.SUSP OP ×4 (07:25→07:54)
[2023-07-27] MEDS: TROPICAMIDE 1% OP SOL 300 DROP/15 ML BOTTLE OP ×4 (07:26→07:55)
[2023-07-27] MEDS: PHENYLEPHRINE HCL 2.5% OP SOL 40 DROP/2 ML BOTTLE OP ×4 (07:28→07:54)
[2023-07-27] MEDS: DIAZEPAM 5 MG TABLET PO (07:32)
[2023-07-27 08:49] VITALS: BP 107/83; PULSE 64; RESP 18; O2SAT 100
[2023-07-27] MEDS: HYALURONATE SODIUM 16 MG/ML SYRINGE OP (08:56)
[2023-07-27] MEDS: APRACLONIDINE HCL 100 DROP/5 ML BOTTLE OP (08:56)
[2023-07-27] MEDS: LIDOCAINE 2% JELLY 10 ML TOPICAL (08:57)
[2023-07-27] MEDS: PHENYLEPHRINE/KETOROLAC 1-0.3% ML VIAL 4 ML IRR (08:57)
[2023-07-27] MEDS: LIDOCAINE HCL 1% PF 20 MG/2 ML VIAL INJ (08:57)
[2023-07-27] MEDS: BETADINE POVIDONE-IODINE 5% OP SOL 30 ML BOTTLE OP (09:00)
[2023-07-27] MEDS: PREDNISOLONE ACETATE OP 1% SUSP 100 DROPS/5 ML 1 DROP OP (09:00)
[2023-07-27] MEDS: TETRACAINE HCL 0.5% OP SOL 80 DROP/4 ML BOTTLE OP (09:00)
[2023-07-27] MEDS: CEFUROXIME SODIUM 750 MG, 0.9 % SODIUM CHLORIDE 16.3 ML OP (09:01)
[2023-07-27] MEDS: HYALURONATE SODIUM 23 MG/ML SYRINGE EYE-LEFT (09:02)
[2023-07-27 09:05] VITALS: BP 150/101; PULSE 67; RESP 18; O2SAT 100
== END 2023-07-27 09:24 | disposition home or self-care (01) ==
LOC: SURGOUT 07:03
PROVIDERS: PCP Physician Assistant; Visit Provider Ophthalmology
PROC: (CPT 66183; principal; 2023-07-27 08:10)
DX: H25.12 Age-related nuclear cataract, left eye (principal); H40.1121 Primary open-angle glaucoma, left eye, mild stage; E78.5 Hyperlipidemia, unspecified; I10 Essential (primary) hypertension; M06.9 Rheumatoid arthritis, unspecified; Z86.73 Personal history of transient ischemic attack (TIA), and cerebral infarction without residual deficits; Z90.49 Acquired absence of other specified parts of digestive tract; Z79.899 Other long term (current) drug therapy; Z79.82 Long term (current) use of aspirin
CPT/HCPCS: 66183; 66984; C1783

== ENCOUNTER 2023-08-22 14:48 | Outpatient (OUT) | payer MEDICARE, SELFPAY ==
--- OUTSIDE RECORDS SUMMARY | 2023-08-21 11:29 | XMS_ITS | CCD ---
Author Organization [facility] Care Team Providers Care Employee Relations Specialist Name Role Phone UNKNOWN, PROVIDER Unavailable Unavailable [...] Unavailable Unavailable Samantha Murphy Primary Care Provider [phone] Cinda Coronel Primary Care Provider RICCO MOSER Attending Unavailable EHSAN, RICCO Admitting Unavailable MISKarla, DOCTOR Consulting Unavailable EHSAN, RICCO Attending Unavailable EHSAN, RICCO Admitting Unavailable EHSAN, RICCO Consulting Unavailable Rossy CORONELh Janet Primary Care Physician Mercedes Kelley Unavailable Unavailable Seamus, Staci Unavailable [...] MD Will Brown Other Provider TRAY Dowell M Other Provider DO Guerline Hickman Other Provider MD Levar Rodriguez Other Provider DO Tom Jenkins Other Provider MD Sotero Daley Other Provider MD Sue Beasley Other Provider Martha ANP- Ivy Other Provider MD Pema Patel Other Provider MD Brown Young Other Provider MD Simi Alcaraz Other Provider MD Annia Esparza Other Provider DO Shan Hou Other Provider MD Mihaela Brown Other Provider MD Robin Randhawa Other Provider Ginny 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 Diane Gonzales Other Provider [phone] MD Enrique Rousseau Other Provider MD Conrad Davison Other Provider MD Montez Velazquez Other Provider MD Malcolm Burgos Other Provider DO Shantell Patterson Other Provider DO Carlos Garcia Other Provider DO Wm Belle Other Provider [phone] TRAY Michel Other Provider DO Coy Arias Other Provider [phone] MD Louis Franklin Other Provider [phone] TRAY Solorzano Other Provider TRAY Sosa Other Provider MD Christina Cross Other Provider MD Saul Rucker Other Provider TRAY Mcintyre Other Provider OTIS Jacques Other Provider Unavailable Berna BURT, Cinda Soliz Primary Care Provider NO FAMILY, PHYSICIAN Primary Care Provider Unava ilable MD Syd Muir Admit Provider MD Syd Muir Attending Provider OTIS Cruz Other Provider Unavailable OTIS Mack Other Provider Unavailable OTIS Olsen Other Provider Unavailable OTIS Durán Other Provider Unavailable OTIS Souza Other Provider Unavailable OTIS Virk Other Provider Unavailable MD Will Brown Other Provider TRAY Dowell Other Provider DO Guerline Hickman Other Provider [...] Other Provider MD Robin Randhawa Other Provider FLACO Gross Other Provider MD Enrique Rousseau Other Provider MD Conrad Davison Other Provider MD Montez Velazquez Other Provider MD Malcolm Burgos Other Provider DO Shantell Patterson Other Provider DO Carlos Garcia Other Provider DO Wm Belle Other Provider TRAY Michel Other Provider DO Coy Arias Other Provider MD Louis Franklin Other Provider TRAY Solorzano Other Provider [phone] TRAY Sosa Other Provider MD Christina Cross Other Provider MD Saul Rucker Other Provider TRAY Mcintyre Other Provider [phone] OTIS Jacques Other Provider Unavailable MD Leonel Aguirre Attending Provider Syd Muir Admitting Unavailable Syd Muir Attending Unavailable Rosa Maria Cruz Consulting Unavailable NO FAMILY, PHYSICIAN Primary Care Unavailable Nathalie Mack Consulting Unavailable Rasheeda Olsen Consulting Unavailable Abril Durán Consulting Unavailable Clarissa Souza Consulting Unavailable Fadumo Virk Consulting Unavailable Will Brown Consulting Unavailable Staci Dowell Consulting Unavailable Guerline Hickman Consulting Unavailable Levar Rodriguez Consulting Unavailable Tom Jenkins Consulting UnavailSotero Scherer Consulting Unavailable Sue Beasley Consulting Unavailable Ivy Gannon Consulting Unavailabl e Pema Patel Consulting Unavailable Brown Young Consulting Unavailable Simi Alcaraz Consulting Unavailable Annia Esparza Consulting Unavailable Shan Hou Consulting Unavailable Mihaela Brown Consulting Unavailable Robin Randhawa Consulting Unavailable Diane Gross Consulting Unavailable Enrique Rousseau Consulting UnavailConrad Coleman Consulting Unavailable Montez Velazquez Consulting Unavailable Malcolm Burgos Consulting Unavailable Shantell Patterson Consulting Unavailable Carlos Garcia Consulting Unavailable MiniWm fraga Consulting Unavailable ObKiki mehta Consulting Unavailable Coy Arias Consulting Unavailable DaromaLouis gutierrez Consulting Unavailable Yari Solorzano Consulting Unavailable Shira Sosa Consulting Unavailable Alahmad Alasonal Consulting Unavailable Saul Rucker Consulting Unavailable Juliana Mcintyre Consulting Unavailable Bhumi Jacques Consulting Unavailable Leonel Aguirre Admitting Unavailable Leonel Aguirre Attending Unavailable Leonel Aguirre Admitting Unavailable Leonel Aguirre Attending Unavailable NO FAMILY, PHYSICIAN Primary Care Unavailable Alysia Barrientos DO Primary Care Provider AURY BASS Attending Unavailable Cinda CORONEL Admitting Unavailable REFERRAL, SELF Referring Unavailable Cinda CORONEL Attending Unavailable Cinda CORONEL Consulting Unavailable CARMEL CORONEL Consulting Unavaila THOMAS Curiel Consulting Unavailable LEONEL AGUIRRE Attending Unavailable LEONEL AGUIRRE Admitting Unavailable COOKIE QUIROZ Attending Unavailable COOKIE QUIROZ Admitting Unavailable LEONEL AGUIRRE Consulting Unavailable MD LEONEL AGUIRRE Consulting Unavailable CINDA CORONEL Primary Care Unavailabl SHAN Huang Attending Unavailable CINDA CORONEL Primary Care Unavailabl SHAN Huang Referring Unavailable CINDA CORONEL Primary Care Unavailabl SHAN Huang Attending Unavailable CINDA CORONEL Primary Care UnavailSHAN Muniz Referring Unavailable SHAN BOX Referring Unavailable CINDA CORONEL Primary Care Unavailabl SHAN Huang Attending Unavailable BERNA, CINDA SOLIZ Primary Care Unavailabl e BERNA, CINDA SOLIZ Primary [facility] Unavailabl e JOUN, SHAN Acosta Referring Unavailable BERNA, CINDA SOLIZ Primary Care Unavailabl e AVTAR RICO Wolf Referring Unavailable KOLCZUN, SHAN Acosta Referring Unavailable BERNA, CINDA SOLIZ Primary [facility] Unavailabl e KOLCZUN, SHAN Acosta Referring Unavailable BERNA, CINDA SOLIZ Primary Care Unavailabl e BERNA, CINDA FRANKLYN [facility] Unavailabl e SCOTCH, JUDIT Attending Unavailable BERNA, CINDA SOLIZ Primary [facility] Unavailabl e SCOTCH, JUDIT Referring Unavailable SCOTCH, JUDIT Attending Unavailable BERNA, CINDA SOLIZ [facility] Unavailabl e BERNA, CINDA FRANKLYN [facility] Unavailabl e KOLCZUN, SHAN Acosta Attending Unavailable BERNA, CINDA SOLIZ [facility] Unavailabl e Allergies Allergy Classification Reported Allergen(s) Allergy Type Date of Onset Reaction(s) Facility Anti-Epileptic Agents (1 source) gabapentin Drug Allergy 5 Other: See Comments [facility] NSAIDs (1 source) celecoxib Drug Allergy 7 Hives, Swelling [facility] rofecoxib (1 source) rofecoxib Drug Allergy 7 Cough [facility] (2 sources) celecoxib; Translations: [Celebrex] Drug Allergy 6 [facility]OF [facility] (7 sources) gabapentin; Translations: [GABAPENTIN] Drug Allergy 5 AOF, Weakness [facility] (16 sources) rofecoxib; Translations: [vioxx] Drug Allergy 6 Aptyalism (disorder) [facility] (2 sources) Sulfonamides (Antibiotic); Translations: [SULFA (SULFONAMIDE ANTIBIOTICS)] Drug allergy (disorder) 6 AOF [facility] (20 sources) celecoxib; Translations: [celecoxib] Drug Allergy 7 Hives, Swelling [facility] (20 sources) gabapentin; Translations: [gabapentin] Drug Allergy 5 Falls (finding), Other: See Comments, Other, Unknown [facility] (15 sources) Sulfonamides (Antibiotic); Translations: [sulfa drugs] Drug allergy unknown [facility] (11 sources) rofecoxib; Translations: [ROFECOXIB] Drug Allergy 7 Cough [facility] (1 source) celecoxib Drug Allergy 3 [facility] (1 source) gabapentin Drug Allergy 3 [facility] (1 source) rofecoxib Drug Allergy 3 [facility] (1 source) celecoxib Drug Allergy 7 Hives, Swelling, Rash [facility] (1 source) rofecoxib Drug Allergy 7 Cough, Unknown [facility] (1 source) Sulfonamides (Antibiotic) Drug Allergy 3 Unknown [facility] Medications Current Medications Medication Drug Class(es) [...] source) Opioid Agonist Start: 2 End: 2 [place] 325 mg-5 mg oral tablet 1 tab(s), [...] Daily, # 90 tab(s), Refills(s) 1, [id number] 154.5, cm, 04/10/19 15:59:00 EST, Height/Length Measured, 84.1, kg, 04/10/19 15:59:00 EST, Weight Measured Start Date: 07/18/19 Status: Ordered azithromycin 500 mg oral tablet (7 sources) Macrolide Antimicrobial Start: 05-18-2022 take 1 tablet by mouth once daily azithromycin 500 mg oral tablet 500 mg = 1 tab(s), Oral, Daily, # 3 tab(s), Refills(s) 0, [id number], 154, cm, 05/14/22 19:49:00 EST, Height/Length Dosing, 72.8, kg, 05/14/22 19:49:00 EST, Weight Dosing Start Date: 05/18/22 Status: Ordered benzonatate 100 mg oral capsule (7 sources) Non-narcotic Antitussive Start: 05-18-2022 take 2 capsules by mouth three times daily as needed for cough Tessalon 100 mg Cap 200 mg = 2 cap(s), Oral, TID, PRN Cough, # 20 cap(s), Refills(s) 0, [id number], 154, cm, 05/14/22 19:49:00 EST, Height/Length [...] day(s), # 9 cap(s), Refills(s) 0, Pharmacy: [id number], 154, cm, 05/14/22 19:49:00 EST, Height/Length [...] 8:35am Start: 12-23-2022 take 1 capsule by [facility] once daily Cholecalciferol, Vitamin D3, (VITAMIN D-3) 50 mcg (2,000 unit) cap Take 1 capsule by mouth once daily. 0 12/23/2022 Active take 1 capsule by [facility] in the morning cholecalciferol (Vitamin D-3) 50 MCG (1999 UT) capsule Take 2,000 Units by mouth in the morning. 0 Active Comment on above: Take 1 capsule by mo [facility] once daily. ferrous sulfate 324 mg delayed release oral tablet (10 sources) Start: 02-10-2023 Ferrous Sulfate Active 324 MG PO Q48H 15 February 09, 2023 11:00pm Start: 05-18-2022 take 1 tablet by [facility] once daily ferrous sulfate 325 mg Tab 325 mg = 1 tab(s), Oral, Daily, # 30 tab(s), Refills(s) 0, Pharmacy: [facility]/pharmacy #[id number], 154, cm, 05/14/22 19:49:00 EST, Height/Length Dosing, 72.8, kg, 05/14/22 19:49:00 EST, Weight Dosing Start Date: 05/18/22 Status: Ordered Start: 02-26-2015 End: 07-02-2015 take 1 tablet by mouth twice daily at mealtime ferrous sulfate 325 mg (65 mg iron) tablet Take 1 tablet by mouth twice daily with meals. 30 tablet 0 02/26/2015 07/02/2015 Discontinued Comment on above: Take 1 tablet by [facility] twice daily with meals. folic acid 1 [...] day(s), # 12 tab(s), Refills(s) 0, Pharmacy: [facility]/pharmacy #[id number], 154, cm, 05/14/22 19:49:00 EST, Height/Length [...] Daily, # 90 tab(s), Refills(s) 1, Pharmacy: [facility]/pharmacy #[id number], 154.5, cm, 04/10/19 15:59:00 EST, Height/Length [...] day(s), # 21 tab(s), Refills(s) 0, Pharmacy: [facility]/pharmacy #[id number], 154, cm, 05/14/22 19:49:00 EST, Height/Length Dosing, 72.8, kg, 05/14/22 19:49:00 EST, Weight Dosing Start Date: 05/18/22 Stop Date: 05/24/22 Status: Ordered mupirocin 0.02 mg/mg topical ointment (3 sources) RNA Synthetase Inhibitor Antibacterial Start: 2021 mupirocin Top 2% Oint 1 neftali, Topical, [...] on above: Take 1 capsule by mo [facility] twice daily as needed for constipation. hydroxychloroquine [...] tabs on Mondays [facility] 6 tablets ONCE WEEKLY oxyCODONE [...] disease (6 sources) Atherosclerotic heart disease of [place] coronary artery without angina pectoris; Translations: [ATHSCL HEART DISEASE OF [place] CORONARY ARTERY W/O ANG PCTRS] Onset: 12-21-2016 [...] current use of drug therapy; Translations: [Other shelter (current) drug therapy] Episodic Other and ill-defined [...] 12-23-2014 12-23-2014 Episodic Other aftercare (2 sources) residential (current) use of antithrombotics/antip latelets; Translations: [residential (current) use of aspirin] Onset: 12-21-2016 Episodic Other aftercare (7 sources) Surgical follow-up; Translations: [Encounter for follow-up examination after completed treatment for conditions other than malignant neoplasm] Onset: 10-06-2006 10-06-2006 Episodic Other aftercare (1 source) Other shelter (current) drug therapy; Translations: [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) drug therapy] Onset: 04-27-2022 Episodic Other [...] Test Name Value Interpretation Reference Range Facility [facility] 08-16-2023 CNOV Office Visit (LOORRM ) -- MAKSIMKIKI Issac ([id number]) 1945 F Date Time Provider Department 08/16/23 11:30 AM SHAN BOX LOORRLiz During your visit today, we recorded the following information about you: Shan Box MD 08/16/2023 2:43 PM Signed see dictated note Shan Box II, MD Referring Provider: SELF [200] Allergies As of Date: 08/16/2023 Noted Allergy Reaction CELEBREX (CELECOXIB) 08/21/2006 4 - Hives 7 - Swelling VIOXX (ROFECOXIB) 08/21/2006 3 - Cough Comments: states she had extreme dry mouth GABAPENTIN 11/12/2014 14 - Other: See Comments Comments: Syncope with fall Date Reviewed: 04/17/2023 Reviewed by: Shan Box MD - Fully Assessed Primary Visit Diagnosis:S/P total knee replacement, left [Z96.652] Order(s):XR KNEE POST OP 3V AP/LAT/ADIT LEFT [[id number]] Order #: [id number] FUTURE Prescriptions as of 08/16/2023 - oxyCODONE IR (ROXICODONE) 5 mg immediate [...] eye daily Problem List As Of Date 08/16/2023 Noted Resolved ENTHESOPATHY OF HIP [M76.899] 09/12/2003 [...] joint disease of pelvic region [M1*02/24/2015 Stroke ([facility]) [I63.9] DVT of popliteal vein ([facility]) [I82.439] S/P patent foramen ovale closure [Z87.74] 12/23/2022 Hypertension [I10] Pulmonary hypertension ([facility]) [I27.20] 06/28/2016 Primary osteoarthritis of left knee [M17.12] 12/23/2022 Obesity, Class I, BMI 30-34.9 [E66.9] 01/16/2023 Status post total left knee replacement [Z96.65*01/17/2023 KAMI (acute kidney injury) ([facility]) [N17.9] 01/18/2023 01/19/2023 Hyponatremia [E87.1] 01/18/2023 Hyperkalemia [E87.5] 01/18/2023 01/19/2023 S/P total knee replacement, left [Z96.652] 01/18/2023 Hypomagnesemia [E83.42] 01/19/2023 01/19/2023 Encounter Status:Closed by SHAN BOX II on 08/16/23 [facility]/LAT/MERCHANT L Ton 08-16-2023 XR KNEE 3V AP/LAT/MERCHANT LT * * *Final Report* * * DATE OF EXAM: Aug 16 2023 11:51AM LZX 5208 - XR KNEE 3V AP/LAT/MERCHANT LT / PROCEDURE REASON: S/P total knee replacement, left * * * * Physician Interpretation * * * * HISTORY (as given from clinical provider): S/P total knee replacement, left . Additional history provided by the performing technologist (if any): Post op left total knee, december 2022 TECHNIQUE: XR KNEE 3V AP/LAT/MERCHANT LT COMPARISON: 04/17/2023 RESULT: Status post total knee arthroplasty with semiconstrained components. The tibial component is at about 4 degrees of varus alignment relative to long axis of the tibia but this is unchanged and there are no abnormal lucencies. No other significant abnormality. IMPRESSION: NO SIGNIFICANT CHANGE 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: MAGDALENE Transcribe Date/Time: Aug 16 2023 12:26P Dictated by : BARB VALLADARES MD This examination was interpreted and the report reviewed and electronically signed by: BARB VALLADARES MD on Aug 16 2023 12:27PM EST [id number] Normal [facility] CBC w/ Auto Diffon 4 Basophil Absolute 0.0 E9/L Normal 0.0-0.2 [facility] Comment on above: Performed By: #### 2 [id number], 4164218, [id number], 74607859, 9633142 #### [facility] [address] [place] [address] Basophils/100 WBC (Bld) 0.2 % Normal 0.0-2.0 [facility] Comment on above: Performed By: #### 2 927297, 0094815, 88864557, 26455536, 8614215 #### [facility] [address] [place] [address] Eos Absolute 0.1 E9/L Normal 0.0-0.5 [facility] Comment on above: Performed By: #### 2 570770, 7966876, 10276043, 82780003, 1549204 #### [facility] [address] [place] [address] Eosinophils/100 WBC (Bld) 0.5 % Normal 0.0-8.0 [facility] Comment on above: Performed By: #### 2 918360, 6741928, 17205805, 44728898, 7932633 #### [facility] [address] [place] [address] Erythrocyte distribution width (RBC) [Ratio] 14.1 % Normal 10.9-14.2 [facility] Comment on above: Performed By: #### 2 319561, 7525088, 47112253, 28853098, 7040751 #### [facility] [address] [place] [address] Hematocrit (Bld) [Volume fraction] 34.0 % Normal 34.0-46.0 [facility] Comment on above: Performed By: #### 2 665599, 1396950, 04811146, 07166802, 6182321 #### [facility] [address] [place] [address] Hemoglobin (Bld) [Mass/Vol] 11.3 g/dL Low 12.0-16.0 [facility] Comment on above: Performed By: #### 2 147014, 4168060, 29490640, 90525558, 7786602 #### [facility] [address] [place] [address] Lymph Absolute 1.3 E9/L Normal 1.0-4.0 [facility] Comment on above: Performed By: #### 2 382552, 9879776, 44391470, 25915170, 9300987 #### [facility] [address] [place] [address] Lymphocytes/100 WBC (Bld) 14.6 % Normal 14.0-50.0 [facility] Comment on above: Performed By: #### 2 920915, 7726977, 44899113, 99434509, 9280616 #### [facility] [address] [place] [address] MCH (RBC) [Entitic mass] 33.4 pg Normal 27.0-34.0 [facility] Comment on above: Performed By: #### 2 175968, 9340513, 74349267, 38315941, 9007236 #### [facility] [address] [place], [place] [address] MCHC (RBC) [Mass/Vol] 32.9 g/dL Normal 31.4-36.0 [facility] Comment on above: Performed By: #### 2 625915, 7283172, 76399128, 05700324, 9271789 #### [facility] [address] [place], [place] [address] MCV (RBC) [Entitic vol] 101.5 fL High 80.0-100.0 [facility] Comment on above: Performed By: #### 2 336856, 0423936, 78181478, 13481607, 9747967 #### [facility] [address] [place], [place] [address] [place] Absolute 0.6 E9/L Normal 0.2-1.0 [facility] Comment on above: Performed By: #### 2 146029, 5450060, 81881133, 07416970, 3956130 #### [facility] [address] [place], [place] [address] Monocytes/100 WBC (Bld) 6.3 % Normal 4.0-14.0 [facility] Comment on above: Performed By: #### 2 164334, 5338223, 13688630, 10813222, 4892451 #### [facility] [address] [place] [address] Neutro Absolute 7.2 E9/L Normal 2.0-7.5 [facility] Comment on above: Performed By: #### 2 836528, 4850890, 69521570, 84677882, 1825860 #### [facility] [address] [place] [address] Neutro Auto 78.4 % High 36.0-75.0 [facility] Comment on above: Performed By: #### 2 853620, 6436823, 61532963, 73907165, 8585249 #### [facility] [address] [place] [address] Platelet 270.0 E9/L Normal 150.0-500. 0 [facility] Comment on above: Performed By: #### 2 349461, 7969251, 83419347, 55697430, 1392669 #### [facility] [address] [place] [address] Platelet mean volume (Bld) [Entitic vol] 7.8 fL Normal 6.4-10.8 [facility] Comment on above: Performed By: #### 2 812604, 1575682, 84740514, 52899627, 2602613 #### [facility] [address] [place] [address] RBC 3.4 E12/L Low 4.3-5.9 [facility] Comment on above: Performed By: #### 2 393241, 2922166, 81423093, 98662625, 3791713 #### [facility] [address] [place] [address] WBC 9.2 E9/L Normal 4.0-11.0 [facility] Comment on above: Performed By: #### 2 786861, 6551090, 77340845, 87232477, 0009366 #### [facility] [address] [place] [address] Consent for Treatmenton 06-22 Consent for Treatment [id number] Normal [facility] Creatinineon 07-07-2023 Creatinine [Mass/Vol] 1.2 mg/dL Normal 0.5-1.3 [facility] Comment on above: Performed By: #### 2 513563, 2768039, 27982703, 61713995, 0660594 #### [facility] [address] [place] [address] Hep Func Panelon 07-07-2023 Albumin [Mass/Vol] 4.3 g/dL Normal 3.3-5.0 [facility] Comment on above: Performed By: #### 2 615393, 5089311, 71324447, 68211635, 8412119 #### [facility] [address] [place] [address] Albumin/Globulin [Mass ratio] 1.7 {ratio} Normal 1.1-2.2 [facility] Comment on above: Performed By: #### 2 774184, 6676080, 21138753, 34950355, 5763794 #### [facility] [address] [place] [address] Alk Phos 105 Int._Unit/L High 21-98 [facility] Comment on above: Performed By: #### 2 448853, 2620660, 35485577, 62789918, 5940252 #### [facility] [address] [place] [address] ALT 23 Int._Unit/L Normal 6-46 [facility] Comment on above: Performed By: #### 2 487001, 2424990, 60097466, 68337273, 9834388 #### [facility] [address] [place] [address] AST 28 Int._Unit/L Normal 5-43 [facility] Comment on above: Performed By: #### 2 186117, 8652601, 88047966, 58918497, 8144708 #### [facility] [address] [place] [address] Bili Direct 0.2 mg/dL Normal 0.0-0.4 [facility] Comment on above: Performed By: #### 2 995989, 9392346, 93186244, 43859340, 7860058 #### [facility] [address] [place] [address] Bili Indirect 0.4 mg/dL Normal 0.1-0.9 [facility] Comment on above: Performed By: #### 2 770268, 6920466, 64230974, 47728465, 5893854 #### [facility] [address] [place] [address] Bili Total 0.6 mg/dL Normal 0.0-1.1 [facility] Comment on above: Performed By: #### 2 613780, 8935640, 53976089, 86512807, 9874748 #### [facility] [address] [place] [address] Globulin (S) [Mass/Vol] 2.5 g/dL Normal 1.4-4.0 [facility] Comment on above: Performed By: #### 2 292705, 7753589, 09696694, 46540007, 2246506 #### [facility] [address] [place] [address] Protein [Mass/Vol] 6.8 g/dL Normal 6.0-7.8 [facility] Comment on above: Performed By: #### 2 953567, 1230758, 54819588, 85372771, 5767476 #### [facility] [facility] [address] [place] [address] Physician Orderon 07-07-2023 Physician Order [id number] Normal [facility] Sed Rate Automatedon 024 ESR (Bld) [Velocity] 14 mm/h Normal 0-34 Fish er [facility] Comment on above: Performed By: #### 2 [id number], [id number], [id number], [id number], [id number] #### [facility] [address] [place] [address] eGFRon 07-07-2023 eGFR 46 mL/min/1.73 m2 Low >=59 [facility] Comment on above: Order Comment: Order added by Discern Expert. Performed By: #### 2 [id number], [id number], [id number], [id number], [id number] #### [facility] [address] [place] [address] CNOVon 04-17-2023 CNOV Office Visit (LOORRM ) -- KIKI MOORE ([id number]) 1945 F Date Time Provider Department 04/17/23 8:30 AM SHAN BOX During your visit today, [...] left [Z96.652] Order(s):XR KNEE POST OP 3V AP/LAT/MERCHANT LEFT [[id number]] Order #: [id number] FUTURE Prescriptions as of 04/17/2023 - oxyCODONE [...] [R06.83] Back pain [M54.9] RA (rheumatoid arthritis) ([facility]) [M06.9] Arthritis of left hip [M16.12] 12/23/2014 Spondylolisthesis of lumbar region [M43.16] 12/23/2014 Lumbar stenosis with neurogenic claudication [M*12/23/2014 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 Stroke ([facility]) [I63.9] DVT of popliteal vein ([facility]) [I82.439] S/P patent foramen ovale closure [Z87.74] 12/23/2022 Hypertension [I10] Pulmonary hypertension ([facility]) [I27.20] 06/28/2016 Primary osteoarthritis of left knee [M17.12] 12/23/2022 Obesity, Class I, BMI 30-34.9 [E66.9] 01/16/2023 Status post total left knee replacement [Z96.65*01/17/2023 KAMI (acute kidney injury) ([facility]) [N17.9] 01/18/2023 01/19/2023 Hyponatremia [E87.1] 01/18/2023 Hyperkalemia [E87.5] 01/18/2023 01/19/2023 S/P total knee replacement, left [Z96.652] 01/18/2023 Hypomagnesemia [E83.42] 01/19/2023 01/19/2023 Disposition: Return in about 3 months (around 07/18/2023). Follow-up and Disposition History for Encounter Date Provider Department Center 04/17/2023 3103-SHAN BOX Encounter Status:Closed by SHAN BOX II on 04/17/23 Normal [facility] XR KNEE 3V AP/LAT/MERCHANT L Ton 04-17-2023 [...] IMPRESSION: Left total knee arthroplasty without complication. 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: MAGDALENE Transcribe Date/Time: Apr 17 2023 9:42A Dictated by : AURY BRANDT MD This examination was interpreted and the report reviewed and electronically signed by: LEE PAGE MD on Apr 17 2023 11:37PM EST [id number] Normal [facility] Alanine aminotransferase [En zymatic activity/volume] in Serum or PlasmaOrdered By: Leonel Aguirre on 04-05-2023 ALT [Catalytic activity/Vol] 23 U/L 7-52 [facility] Albumin [Mass/volume] in Ser um or Plasma by Bromocresol green (BCG) dye binding methoOrdered By: Leonel Aguirre on 04-05-2023 Albumin BCG dye [Mass/Vol] 4.4 g/dL 3.5-5.7 [facility] Alkaline phosphatase [Enzyma tic activity/volume] in Serum or PlasmaOrdered By: Leonel Aguirre on 04-05-2023 ALP [Catalytic activity/Vol] 151 U/L 34-104 [facility] Aspartate aminotransferase [ Enzymatic activity/volume] in Serum or PlasmaOrdered By: Leonel Aguirre on 04-05-2023 AST [Catalytic activity/Vol] 30 U/L 13-39 [facility] Basophils Auto (Bld) [#/Vol] Ordered By: Leonel Aguirre on 04-05-2023 Basophils (Bld) [#/Vol] 0.0 10*3/uL 0.0-0.2 [facility] Basophils/100 WBC Auto (Bld) Ordered By: Leonel Aguirre on 04-05-2023 Basophils/100 WBC (Bld) 0.1 % . F [facility] Bilirubin.direct [Mass/volum e] in Serum or PlasmaOrdered By: Leonel Aguirre on 04-05-2023 Bilirubin.direct [Mass/Vol] 0.10 mg/dL 0.03-0.18 [facility] Bilirubin.total [Mass/volume ] in Serum or PlasmaOrdered By: Leonel Aguirre on 04-05-2023 Bilirubin [Mass/Vol] 0.6 mg/dL 0.3-1.0 [facility] C reactive protein [Mass/vol ume] in Serum or PlasmaOrdered By: Leonel Aguirre on 04-05-2023 CRP [Mass/Vol] < 0.5 mg/dL 0.0-0.5 [facility] C-Reactive Proteinon 023 CRP [Mass/Vol] mg/L Normal 0.0-0.5 [facility] Comment on above: Result Comment: PERF ORMED BY: [place] [address] PATHOLOGIST WIRE MILL OPERATOR KWADWO PULIDO M.D. Performed By: #### C BC, CMP, PAB #### [facility] [address] [place] [address] Complete Blood Count Auto Di ffon 04-05-2023 Basophils (Bld) [#/Vol] 0.0 10*3/uL Normal 0.0-0.2 [facility] Comment on above: Performed By: #### C BC, CMP, PAB #### [facility] [address] [place] [address] [place] Basophils/100 WBC (Bld) 0.1 % Normal . F [facility] Comment on above: Performed By: #### C BC, CMP, PAB #### [place] [address] [place] Eosinophils (Bld) [#/Vol] 0.0 10*3/uL Normal 0.0-0.45 [facility] Comment on above: Performed By: #### C BC, CMP, PAB #### [facility] [address] [place] [address] [place] Eosinophils/100 WBC (Bld) 0.6 % Normal . [facility] Comment on above: Performed By: #### C BC, CMP, PAB #### [facility] [address] Erythrocyte distribution width (RBC) [Ratio] 14.5 % Normal 11.9-15.3 [facility] Comment on above: Performed By: #### C BC, CMP, PAB #### [facility] [address] Hematocrit (Bld) [Volume fraction] 33.2 % Low 34.0-46.4 [facility] Comment on above: Performed By: #### C BC, CMP, PAB #### [facility] [address] Hemoglobin (Bld) [Mass/Vol] 11.1 g/dL Low 11.8-15.4 [facility] Comment on above: Performed By: #### C BC, CMP, PAB #### [facility] [address] [place] [address] [place] Lymphocytes (Bld) [#/Vol] 1.3 10*3/uL Normal 1.00-4.8 [facility] Comment on above: Performed By: #### C BC, CMP, PAB #### [facility] [address] [place] [address] [place] Lymphocytes/100 WBC (Bld) 16.1 % Normal . [facility] Comment on above: Performed By: #### C BC, CMP, PAB #### [facility] [address] [place] [address] [place] MCH (RBC) [Entitic mass] 32.7 pg Normal 24.7-34.3 [facility] Comment on above: Performed By: #### C BC, CMP, PAB #### [facility] [address] [place] [address] [place] MCV (RBC) [Entitic vol] 98.3 fL Normal 80-100 [facility] Comment on above: Performed By: #### C BC, CMP, PAB #### [facility] [address] Mean Corpuscular HGB Conc 33.3 g/dL Normal 32.0-35.0 [facility] Comment on above: Performed By: #### C BC, CMP, PAB #### [facility] [address] [place] [address] [place] Monocytes (Bld) [#/Vol] 0.4 10*3/uL Normal 0.0-0.8 [facility] Comment on above: Performed By: #### C BC, CMP, PAB #### [facility] [address] Monocytes/100 WBC (Bld) 5.1 % Normal . [facility] Comment on above: Performed By: #### C BC, CMP, PAB #### [facility] [address] [place] [address] [place] Neutrophils (Bld) [#/Vol] 6.5 10*3/uL Normal 1.8-7.7 [facility] Comment on above: Performed By: #### C BC, CMP, PAB #### [facility] [address] [place] [address] [place] Neutrophils/100 WBC (Bld) 78.1 % Normal . [facility] Comment on above: Performed By: #### C BC, CMP, PAB #### [facility] [address] [place] [address] [place] NRBC% 0.1 /100{WBC} Normal 0-0.5 [facility] Comment on above: Performed By: #### C BC, CMP, PAB #### [facility] [address] [place] [address] [place] Platelet mean volume (Bld) [Entitic vol] 8.2 fL Normal 6.3-10.7 [facility] Comment on above: Performed By: #### C BC, CMP, PAB #### [facility] [address] [place] [address] [place] Platelets (Bld) [#/Vol] 194 10*3/uL Normal 150-450 [facility] Comment on above: Performed By: #### C ERROL CMP, PAB #### [facility] [address] RBC (Bld) [#/Vol] 3.38 10*6/uL Low 3.60-5.00 [facility] Comment on above: Performed By: #### C ERROL CMP, PAB #### [address] WBC (Bld) [#/Vol] 8.3 10*3/uL Normal 3.8-11.6 [facility] Comment on above: Performed By: #### C MEGGAN NORTON, PAB #### [address] Creatinineon 04-05-2023 Creatinine [Mass/Vol] 0.99 mg/dL Normal 0.60-1.20 [facility] Comment on above: Performed By: #### C MEGGAN NORTON, PAB #### [address] GFR/1.73 sq M.predicted MDRD (S/P/Bld) [Vol rate/Area] 58.728 mL/min/{1.73_m2} Normal [facility] Comment on above: Performed By: #### C MEGGAN NORTON, PAB #### [address] Creatinine [Mass/volume] in Serum or PlasmaOrdered By: Leonel Aguirre on 04-05-2023 Creatinine [Mass/Vol] 0.99 mg/dL 0.60-1.20 [facility] Eosinophils Auto (Bld) [#/Vo l]Ordered By: Leonel Aguirre on 04-05-2023 Eosinophils (Bld) [#/Vol] 0.0 10*3/uL 0.0-0.45 [facility] Eosinophils/100 WBC Auto (Bl d)Ordered By: Leonel Aguirre on 04-05-2023 Eosinophils/100 WBC (Bld) 0.6 % . [facility] Erythrocyte Sedimentation Ra eddi 04-05-2023 ESR (Bld) [Velocity] 10 mm/h Normal 0-29 [facility] Comment on above: Result Comment: PERF ORMED BY: [place] [address] PATHOLOGIST WIRE MILL OPERATOR KWADWO PULIDO M.D. Performed By: #### C BC, CMP, PAB #### [facility] [address] Erythrocyte distribution wid th Auto (RBC) [Ratio]Ordered By: Leonel Aguirre on 04-05-2023 Erythrocyte distribution width (RBC) [Ratio] 14.5 % 11.9-15.3 [facility] Erythrocyte sedimentation ra te by Photometric methodOrdered By: Leonel Aguirre on 04-05-2023 ESR Photometric method (Bld) [Velocity] 10 mm/hr 0-29 [facility] Globulin Calc (S) [Mass/Vol] Ordered By: Leonel Aguirre on 04-05-2023 Globulin (S) [Mass/Vol] 2.2 g/dL [facility] Hematocrit Auto (Bld) [Volum e fraction]Ordered By: Leonel Aguirre on 04-05-2023 Hematocrit (Bld) [Volume fraction] 33.2 % 34.0-46.4 [facility] Hemoglobin [Mass/volume] in BloodOrdered By: Leonel Aguirre on 04-05-2023 Hemoglobin (Bld) [Mass/Vol] 11.1 g/dL 11.8-15.4 [facility] Hepatic Panelon 04-05-2023 Albumin [Mass/Vol] 4.4 g/dL Normal 3.5-5.7 [facility] Comment on above: Performed By: #### C BC, CMP, PAB #### [facility] [address] Albumin/Globulin [Mass ratio] 2.0 {ratio} Normal [facility] Comment on above: Performed By: #### C BC, CMP, PAB #### [facility] [address] [place] [id number] [facility] ALP [Catalytic activity/Vol] 151 U/L High 34-104 [facility] Comment on above: Performed By: #### C BC, CMP, PAB #### [facility] [address] [place] [id number] [place] ALT [Catalytic activity/Vol] 23 U/L Normal 7-52 [facility] Comment on above: Performed By: #### C BC, CMP, PAB #### [facility] [address] [place] [address] [place] AST [Catalytic activity/Vol] 30 U/L Normal 13-39 [facility] Comment on above: Performed By: #### C BC, CMP, PAB #### [facility] [address] Bilirubin [Mass/Vol] 0.6 mg/dL Normal 0.3-1.0 [facility] Comment on above: Performed By: #### C BC, CMP, PAB #### [facility] [address] Bilirubin,Indirect 0.5 mg/dL Normal [facility] Comment on above: Performed By: #### C BC, CMP, PAB #### [facility] [address] Bilirubin.indirect [Mass/Vol] 0.10 mg/dL Normal 0.03-0.18 [facility] Comment on above: Performed By: #### C BC, CMP, PAB #### [facility] [address] Globulin (S) [Mass/Vol] 2.2 g/dL Normal [facility] Comment on above: Performed By: #### C BC, CMP, PAB #### [facility] [address] [place] [address] [place] Protein [Mass/Vol] 6.6 g/dL Normal 6.4-8.9 [facility] Comment on above: Performed By: #### C BC, CMP, PAB #### [facility] [address] [place] [address] [place] Leukocytes [#/volume] correc kevin for nucleated erythrocytes in Blood by Automated counOrdered By: Leonel Aguirre on 04-05-2023 WBC corrected for nucl RBC Auto (Bld) [#/Vol] 8.3 10*3/uL 3.8-11.6 [facility] Lymphocytes Auto (Bld) [#/Vo l]Ordered By: Leonel Aguirre on 04-05-2023 Lymphocytes (Bld) [#/Vol] 1.3 10*3/uL 1.00-4.8 [facility] Lymphocytes/100 WBC Auto (Bl d)Ordered By: Leonel Aguirre on 04-05-2023 Lymphocytes/100 WBC (Bld) 16.1 % . [facility] MCH Auto (RBC) [Entitic mass ]Ordered By: Leonel Aguirre on 04-05-2023 MCH (RBC) [Entitic mass] 32.7 pg 24.7-34.3 [facility] MCHC Auto (RBC) [Mass/Vol]Or dered By: Leonel Aguirre on 04-05-2023 MCHC (RBC) [Mass/Vol] 33.3 g/dL 32.0-35.0 [facility] MCV Auto (RBC) [Entitic vol] Ordered By: Leonel Aguirre on 04-05-2023 MCV (RBC) [Entitic vol] 98.3 fL 80-100 [facility] Monocytes Auto (Bld) [#/Vol] Ordered By: Leonel Aguirre on 04-05-2023 Monocytes (Bld) [#/Vol] 0.4 10*3/uL 0.0-0.8 [facility] Monocytes/100 WBC Auto (Bld) Ordered By: Leonel Aguirre on 04-05-2023 Monocytes/100 WBC (Bld) 5.1 % . [facility] Neutrophils Auto (Bld) [#/Vo l]Ordered By: Leonel Aguirre on 04-05-2023 Neutrophils (Bld) [#/Vol] 6.5 10*3/uL 1.8-7.7 [facility] Neutrophils/100 WBC Auto (Bl d)Ordered By: Leonel Aguirre on 04-05-2023 Neutrophils/100 WBC (Bld) 78.1 % . [facility] No Panel InformationOrdered By: Leonel Aguirre on 04-05-2023 Estimated GFR (CKD-EPI) 58.728 mL/Min [facility] Creatinine Clearance (Chem N/A [facility] Nucleated erythrocytes [Pres ence] in Blood by Automated countOrdered By: Leonel Aguirre on 04-05-2023 Nucleated RBC Auto Ql (Bld) 0.1 /100{WBC} 0-0.5 [facility] Platelet mean volume Auto (B ld) [Entitic vol]Ordered By: Leonel Aguirre on 04-05-2023 Platelet mean volume (Bld) [Entitic vol] 8.2 fL 6.3-10.7 [facility] Platelets Auto (Bld) [#/Vol] Ordered By: Leonel Aguirre on 04-05-2023 Platelets (Bld) [#/Vol] 194 10*3/uL 150-450 [facility] Protein [Mass/volume] in Ser um or PlasmaOrdered By: Leonel Aguirre on 04-05-2023 Protein [Mass/Vol] 6.6 g/dL 6.4-8.9 [facility] RBC Auto (Bld) [#/Vol]Ordere d By: Leonel Aguirre on 04-05-2023 RBC (Bld) [#/Vol] 3.38 10*6/uL 3.60-5.00 [facility] Serum or plasma albumin/glob ulin mass ratioOrdered By: Leonel Aguirre on 04-05-2023 Albumin/Globulin [Mass ratio] 2.0 {ratio} [facility] Serum or plasma non-glucuron idated bilirubin measurement (mass/volume)Ordered By: Leonel Aguirre on 04-05-2023 Bilirubin.indirect [Mass/Vol] 0.5 mg/dL [facility] WBC Auto (Bld) [#/Vol]Ordere d By: Leonel Aguirre on 04-05-2023 WBC (Bld) [#/Vol] 8.3 10*3/uL 3.8-11.6 [facility] CNOVon 03-06-2023 CNOV Office Visit (LOORRM ) -- KIKI MOORE ([id number]) 1945 F Date Time Provider Department 03/06/23 9:30 AM SHAN BOX LOORRLiz During your visit [...] [R06.83] Back pain [M54.9] RA (rheumatoid arthritis) ([facility]) [M06.9] Arthritis of left hip [M16.12] 12/23/2014 Spondylolisthesis of lumbar region [M43.16] 12/23/2014 Lumbar stenosis with neurogenic claudication [M*12/23/2014 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 Stroke ([facility]) [I63.9] DVT of popliteal vein ([facility]) [I82.439] S/P patent foramen ovale closure [Z87.74] 12/23/2022 Hypertension [I10] Pulmonary hypertension (HCC) [I27.20] 06/28/2016 Primary osteoarthritis of left knee [M17.12] 12/23/2022 Obesity, Class I, BMI 30-34.9 [E66.9] 01/16/2023 Status post total left knee replacement [Z96.65*01/17/2023 KAMI (acute kidney injury) ([facility]) [N17.9] 01/18/2023 01/19/2023 Hyponatremia [E87.1] 01/18/2023 Hyperkalemia [E87.5] 01/18/2023 01/19/2023 S/P total knee replacement, left [Z96.652] 01/18/2023 Hypomagnesemia [E83.42] 01/19/2023 01/19/2023 Encounter Status:Closed by SHAN BOX II on 03/06/23 Normal [facility] Basic Metabolic Panelon 09-2 Anion gap [Moles/Vol] 10.6 mmol/L Normal 6.0-15.0 [facility] Comment on above: Performed By: #### B MP ####[place] [address] [place] [address] [facility] Calcium [Mass/Vol] 8.6 mg/dL Normal 8.6-10.3 [facility] Comment on above: Performed By: #### B MP ####[address] [place] [address] [facility] Chloride [Moles/Vol] 100 mmol/L Normal 98-107 [facility] Comment on above: Performed By: #### B MP ####[address] [place] [address] [facility] CO2 [Moles/Vol] 25.0 mmol/L Normal 21.0-31.0 [facility] Comment on above: Performed By: #### B MP ####[address] [place] [address] [facility] Creatinine [Mass/Vol] 0.99 mg/dL Normal 0.60-1.20 [facility] Comment on above: Performed By: #### B MP ####[address] [place] [place] [address] [place] Creatinine Clr Calc Pharmacy 45.35 [facility] Comment on above: Result Comment: PERF ORMED BY: [facility] [address] [id number] PATHOLOGIST WIRE MILL OPERATOR KWADWO PULIDO M.D. Performed By: #### B MP ####[place] [address] [place] [id number] [facility] GFR/1.73 sq M.predicted MDRD (S/P/Bld) [Vol rate/Area] 58.728 mL/min/{1.73_m2} Normal [facility] Comment on above: Performed By: #### B MP ####[place] [id number] [facility] Glucose [Mass/Vol] 135 mg/dL High 70-100 [facility] Comment on above: Result Comment: [facility] Glucose Reference Range is dependent on time and content of last meal. Glucose of more than 200 mg/dL in a nonstressed, ambulatory subject supports the diagnosis of Diabetes Mellitus. ADA recommended reference range Performed By: #### B MP ####[place] [id number] [facility] Potassium [Moles/Vol] 4.6 mmol/L Normal 3.5-5.1 [facility] Comment on above: Performed By: #### B MP ####[address] [address] [facility] Sodium [Moles/Vol] 131 mmol/L Low 136-145 [facility] Comment on above: Performed By: #### B MP ####[place] [id number] [facility] Urea nitrogen [Mass/Vol] 21 mg/dL Normal 7-25 [facility] Comment on above: Performed By: #### B MP ####[place] [id number] [facility] CNOV 02-10-2023 CNOV Office Visit (LOORRM ) -- KIKI MOORE ([id number]) 1945 F Date Time Provider Department 02/10/23 10:30 AM JUDIT JARRELLKAITLiz During your visit today, we recorded the [...] Obesity Snoring Back Pain Ra (Rheumatoid Arthritis) ([facility]) Arthritis of Left Hip Spondylolisthesis of Lumbar Region 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 Stroke ([facility]) Dvt of Popliteal Vein ([facility]) S/P Patent Foramen Ovale Closure Hypertension Pulmonary Hypertension ([facility]) Primary Osteoarthritis of Left Knee Obesity, Class [...] 01/19/2023 Currently Ambulating with: Patient arrives on eusebia from rehab facility. Physical Therapy Data 02/24/2015 [...] tenderness Ne (more content not included)... Normal [facility] Calcium [Mass/volume] in Ser um or PlasmaOrdered By: Syd Muir on 02-10-2023 Calcium [Mass/Vol] 8.6 mg/dL 8.6-10.3 [facility] Carbon dioxide, total [Moles /volume] in Serum or PlasmaOrdered By: Syd Muir on 02-10-2023 CO2 [Moles/Vol] 25.0 mmol/L 21.0-31.0 [facility] Chloride [Moles/volume] in S shanti or PlasmaOrdered By: Syd Muri on 02-10-2023 Chloride [Moles/Vol] 100 mmol/L 98-107 [facility] Creatinine [Mass/volume] in Serum or PlasmaOrdered By: Syd Muir on 02-10-2023 Creatinine [Mass/Vol] 0.99 mg/dL 0.60-1.20 [facility] Glucose [Mass/volume] in Ser um or PlasmaOrdered By: Syd Muir on 09-22-2023 Glucose [Mass/Vol] 135 mg/dL 70-100 [facility] Comment on above: ADA recommended refe rence rangeRandom Glucose Reference Range is dependent on time and content of last meal. Glucose of more than 200 mg/dL in a nonstressed, ambulatory subject supports the diagnosis of Diabetes Mellitus. No Panel InformationOrdered By: Syd Muir on 02-10-2023 Estimated GFR (CKD-EPI) 58.728 mL/Min [facility] Creatinine Clearance (Chem 45.35 [facility] Potassium [Moles/volume] in Serum or PlasmaOrdered By: Syd Muir on 02-10-2023 Potassium [Moles/Vol] 4.6 mmol/L 3.5-5.1 [facility] Serum or plasma anion gap de terminationOrdered By: Syd Muir on 02-10-2023 Anion gap [Moles/Vol] 10.6 mmol/L 6.0-15.0 [facility] Sodium [Moles/volume] in Ser um or PlasmaOrdered By: Syd Muir on 02-10-2023 Sodium [Moles/Vol] 131 mmol/L 136-145 [facility] Urea nitrogen [Mass/volume] in Serum or PlasmaOrdered By: Syd Muir on 02-10-2023 Urea nitrogen [Mass/Vol] 21 mg/dL 7-25 [facility] XR KNEE 3V AP/LAT/MERCHANT L Ton 02-10-2023 [...] soft tissue gas. IMPRESSION: Arthroplasty without complication 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: MAGDALENE Transcribe Date/Time: Feb 10 2023 11:26A Dictated by : LEE PAGE MD This examination was interpreted and the report reviewed and electronically signed by: LEE PAGE MD on Feb 10 2023 11:30AM EST [id number] Normal [facility] US venous duplex LE LTon US venous duplex LE LT [facility] [address] Ultrasound Report Signed Patient: Kiki Moore MR#: [id number] 01 : 1945 Acct:[id number] Age/Sex: 78 / F ADM Date: 01/31/23 Loc: Room: 4V5727-1 Type: ADM IN Attending Dr: Syd Muir [...] Arvind James MD02/09/2023 3:03 PM Dictation Location: [id number] Tech: Chelsy Miguelina Transcribed By: ROYAL 02/09/23 1503 Dictated By: Arvind James MD 02/09/23 1503 Signed By: 02/09/23 1503 [facility] Basophils Auto (Bld) [#/Vol] Ordered By: Sofya Petit on 02-07-2023 Basophils (Bld) [#/Vol] 0.0 10*3/uL 0.0-0.2 [facility] Basophils/100 WBC Auto (Bld) Ordered By: Sofya Petit on 02-07-2023 Basophils/100 WBC (Bld) 0.4 % . F [facility] Complete Blood Count Auto Di ffon 02-07-2023 Basophils (Bld) [#/Vol] 0.0 10*3/uL Normal 0.0-0.2 [facility] Comment on above: Result Comment: PERF ORMED BY: [facility] [address] [place] [address] PATHOLOGIST WIRE MILL OPERATOR KWADWO PULIDO M.D. Performed By: #### C BC ####[address] Basophils/100 WBC (Bld) 0.4 % Normal . [facility] Comment on above: Performed By: #### C BC ####[address] Eosinophils (Bld) [#/Vol] 0.1 10*3/uL Normal 0.0-0.45 [facility] Comment on above: Performed By: #### C BC ####[address] Eosinophils/100 WBC (Bld) 0.8 % Normal . [facility] Comment on above: Performed By: #### C BC ####[address] Erythrocyte distribution width (RBC) [Ratio] 16.0 % High 11.9-15.3 [facility] Comment on above: Performed By: #### C BC ####[address] Hematocrit (Bld) [Volume fraction] 27.0 % Low 34.0-46.4 [facility] Comment on above: Performed By: #### C BC ####[address] Hemoglobin (Bld) [Mass/Vol] 9.1 g/dL Low 11.8-15.4 [facility] Comment on above: Performed By: #### C BC ####[address] Lymphocytes (Bld) [#/Vol] 1.4 10*3/uL Normal 1.00-4.8 [facility] Comment on above: Performed By: #### C BC ####[address] Lymphocytes/100 WBC (Bld) 17.4 % Normal . [facility] Comment on above: Performed By: #### C BC ####[address] MCH (RBC) [Entitic mass] 33.4 pg Normal 24.7-34.3 [facility] Comment on above: Performed By: #### C BC ####[address] MCV (RBC) [Entitic vol] 99.2 fL Normal 80-100 [facility] Comment on above: Performed By: #### C BC ####[address] Mean Corpuscular HGB Conc 33.7 g/dL Normal 32.0-35.0 [facility] Comment on above: Performed By: #### C BC ####[address] Monocytes (Bld) [#/Vol] 1.2 10*3/uL High 0.0-0.8 [facility] Comment on above: Performed By: #### C BC ####[address] Monocytes/100 WBC (Bld) 15.5 % Normal . [facility] Comment on above: Performed By: #### C BC ####[address] Neutrophils (Bld) [#/Vol] 5.2 10*3/uL Normal 1.8-7.7 [facility] Comment on above: Performed By: #### C BC ####[place] [id number] [facility] Neutrophils/100 WBC (Bld) 65.9 % Normal . [facility] Comment on above: Performed By: #### C BC ####[place] [id number] [facility] NRBC% 0.1 /100{WBC} Normal 0-0.5 [facility] Comment on above: Performed By: #### C BC ####[place] [id number] [facility] Platelet mean volume (Bld) [Entitic vol] 7.0 fL Normal 6.3-10.7 [facility] Comment on above: Performed By: #### C BC ####[place] [id number] [facility] Platelets (Bld) [#/Vol] 213 10*3/uL Normal 150-450 [facility] Comment on above: Performed By: #### C BC ####[place] [id number] [facility] RBC (Bld) [#/Vol] 2.72 10*6/uL Low 3.60-5.00 [facility] Comment on above: Performed By: #### C BC ####[place] [id number] [facility] WBC (Bld) [#/Vol] 8.0 10*3/uL Normal 3.8-11.6 [facility] Comment on above: Performed By: #### C BC ####[place] [id number] [facility] Eosinophils Auto (Bld) [#/Vo l]Ordered By: Sofya Petit on 02-07-2023 Eosinophils (Bld) [#/Vol] 0.1 10*3/uL 0.0-0.45 [facility] Eosinophils/100 WBC Auto (Bl d)Ordered By: Sofya Petit on 02-07-2023 Eosinophils/100 WBC (Bld) 0.8 % . [facility] Erythrocyte distribution wid th Auto (RBC) [Ratio]Ordered By: Sofya Petit on 02-07-2023 Erythrocyte distribution width (RBC) [Ratio] 16.0 % 11.9-15.3 [facility] Hematocrit Auto (Bld) [Volum e fraction]Ordered By: Sofya Petit on 02-07-2023 Hematocrit (Bld) [Volume fraction] 27.0 % 34.0-46.4 [facility] Hemoglobin [Mass/volume] in BloodOrdered By: Sofya Petit on 02-07-2023 Hemoglobin (Bld) [Mass/Vol] 9.1 g/dL 11.8-15.4 [facility] Leukocytes [#/volume] correc kevin for nucleated erythrocytes in Blood by Automated counOrdered By: Sofya Petit on 02-07-2023 WBC corrected for nucl RBC Auto (Bld) [#/Vol] 8.0 10*3/uL 3.8-11.6 [facility] Lymphocytes Auto (Bld) [#/Vo l]Ordered By: Sofya Petit on 02-07-2023 Lymphocytes (Bld) [#/Vol] 1.4 10*3/uL 1.00-4.8 [facility] Lymphocytes/100 WBC Auto (Bl d)Ordered By: Sofya Petit on 02-07-2023 Lymphocytes/100 WBC (Bld) 17.4 % . [facility] MCH Auto (RBC) [Entitic mass ]Ordered By: Sofya Petit on 02-07-2023 MCH (RBC) [Entitic mass] 33.4 pg 24.7-34.3 [facility] MCHC Auto (RBC) [Mass/Vol]Or dered By: Sofya Petit on 02-07-2023 MCHC (RBC) [Mass/Vol] 33.7 g/dL 32.0-35.0 [facility] MCV Auto (RBC) [Entitic vol] Ordered By: Sofya Petit on 02-07-2023 MCV (RBC) [Entitic vol] 99.2 fL 80-100 [facility] Monocytes Auto (Bld) [#/Vol] Ordered By: Sofya Petit on 02-07-2023 Monocytes (Bld) [#/Vol] 1.2 10*3/uL 0.0-0.8 [facility] Monocytes/100 WBC Auto (Bld) Ordered By: Sofya Petit on 02-07-2023 Monocytes/100 WBC (Bld) 15.5 % . [facility] Neutrophils Auto (Bld) [#/Vo l]Ordered By: Sofya Petit on 02-07-2023 Neutrophils (Bld) [#/Vol] 5.2 10*3/uL 1.8-7.7 [facility] Neutrophils/100 WBC Auto (Bl d)Ordered By: Sofya Petit on 02-07-2023 Neutrophils/100 WBC (Bld) 65.9 % . [facility] Nucleated erythrocytes [Pres ence] in Blood by Automated countOrdered By: Sofya Petit on 02-07-2023 Nucleated RBC Auto Ql (Bld) 0.1 /100{WBC} 0-0.5 [facility] Platelet mean volume Auto (B ld) [Entitic vol]Ordered By: Sofya Petit on 02-07-2023 Platelet mean volume (Bld) [Entitic vol] 7.0 fL 6.3-10.7 [facility] Platelets Auto (Bld) [#/Vol] Ordered By: Sofya Petit on 02-07-2023 Platelets (Bld) [#/Vol] 213 10*3/uL 150-450 [facility] RBC Auto (Bld) [#/Vol]Ordere d By: Sofya Petit on 02-07-2023 RBC (Bld) [#/Vol] 2.72 10*6/uL 3.60-5.00 [facility] WBC Auto (Bld) [#/Vol]Ordere d By: Sofya Petit on 02-07-2023 WBC (Bld) [#/Vol] 8.0 10*3/uL 3.8-11.6 [facility] Fecal occult blood detection by immunochemistryOrdered By: Ivy Gannon on 02-06-2023 Hemoglobin.gastrointest inal Ql (Stl) [facility] Fecal occult blood detection by immunochemistryOrdered By: Ivy Thomas on 02-06-2023 Hemoglobin.gastrointest inal Ql (Stl) [facility] Stool Occult Blood (Guaiac)o n 02-06-2023 Stool Occult Blood (Guaiac) Occult Blood Negative for Occult Blood by Guaiac Methodology -- Reference range = Negative PERFORMED BY: [address] [place] [address] PATHOLOGIST WIRE MILL OPERATOR KWADWO PULIDO M.D. Normal [facility] Comment on above: Performed By: #### O B(GUAIAC) ####[address] Complete Blood Count Auto Di ffon 02-04-2023 Basophils (Bld) [#/Vol] 0.0 10*3/uL Normal 0.0-0.2 [facility] Comment on above: Result Comment: PERF ORMED BY: [place] [address] [place] [address] PATHOLOGIST WIRE MILL OPERATOR KWADWO PULIDO M.D. Performed By: #### C BC ####[address] Basophils/100 WBC (Bld) 0.5 % Normal . [facility] Comment on above: Performed By: #### C BC ####[place] [id number] [facility] Eosinophils (Bld) [#/Vol] 0.2 10*3/uL Normal 0.0-0.45 [facility] Comment on above: Performed By: #### C BC ####[place] [id number] [facility] Eosinophils/100 WBC (Bld) 2.9 % Normal . [facility] Comment on above: Performed By: #### C BC ####[address] [address] [facility] Erythrocyte distribution width (RBC) [Ratio] 14.7 % Normal 11.9-15.3 [facility] Comment on above: Performed By: #### C BC ####[address] [address] [facility] Hematocrit (Bld) [Volume fraction] 25.4 % Low 34.0-46.4 [facility] Comment on above: Performed By: #### C BC ####[address] [address] [facility] Hemoglobin (Bld) [Mass/Vol] 8.7 g/dL Low 11.8-15.4 [facility] Comment on above: Performed By: #### C BC ####[place] [id number] [facility] Lymphocytes (Bld) [#/Vol] 1.1 10*3/uL Normal 1.00-4.8 [facility] Comment on above: Performed By: #### C BC ####[place] [id number] [facility] Lymphocytes/100 WBC (Bld) 17.4 % Normal . [facility] Comment on above: Performed By: #### C BC ####[address] [address] [facility] MCH (RBC) [Entitic mass] 33.5 pg Normal 24.7-34.3 [facility] Comment on above: Performed By: #### C BC ####[address] [address] [facility] MCV (RBC) [Entitic vol] 98.3 fL Normal 80-100 [facility] Comment on above: Performed By: #### C BC ####[place] [id number] [facility] Mean Corpuscular HGB Conc 34.0 g/dL Normal 32.0-35.0 [facility] Comment on above: Performed By: #### C BC ####[place] [address] [place] [address] [facility] Monocytes (Bld) [#/Vol] 0.9 10*3/uL High 0.0-0.8 [facility] Comment on above: Performed By: #### C BC ####[address] [address] [facility] Monocytes/100 WBC (Bld) 14.2 % Normal . [facility] Comment on above: Performed By: #### C BC ####[address] [address] [facility] Neutrophils (Bld) [#/Vol] 4.1 10*3/uL Normal 1.8-7.7 [facility] Comment on above: Performed By: #### C BC ####[address] [address] [facility] Neutrophils/100 WBC (Bld) 65.0 % Normal . [facility] Comment on above: Performed By: #### C BC ####[address] [address] [facility] NRBC% 0.1 /100{WBC} Normal 0-0.5 [facility] Comment on above: Performed By: #### C BC ####[address] [address] [facility] Platelet mean volume (Bld) [Entitic vol] 6.6 fL Normal 6.3-10.7 [facility] Comment on above: Performed By: #### C BC ####[address] [address] [facility] Platelets (Bld) [#/Vol] 235 10*3/uL Normal 150-450 [facility] Comment on above: Performed By: #### C BC ####[address] [address] [facility] RBC (Bld) [#/Vol] 2.58 10*6/uL Low 3.60-5.00 [facility] Comment on above: Performed By: #### C BC ####[place] [id number] WBC (Bld) [#/Vol] 6.3 10*3/uL Normal 3.8-11.6 [facility] Comment on above: Performed By: #### C BC ####[facility] [id number] Complete Blood Count Auto Di ffon 02-03-2023 Basophils (Bld) [#/Vol] 0.0 10*3/uL Normal 0.0-0.2 [facility] Comment on above: Result Comment: PERF ORMED BY: [place] [address] PATHOLOGIST WIRE MILL OPERATOR KWADWO PULIDO M.D. Performed By: #### C BC, CMP, PAB #### [address] Basophils/100 WBC (Bld) 0.5 % Normal . [facility] Comment on above: Performed By: #### C BC, CMP, PAB #### [facility] [address] Eosinophils (Bld) [#/Vol] 0.2 10*3/uL Normal 0.0-0.45 [facility] Comment on above: Performed By: #### C BC, CMP, PAB #### [facility] [address] Eosinophils/100 WBC (Bld) 3.4 % Normal . [facility] Comment on above: Performed By: #### C BC, CMP, PAB #### [facility] [address] Erythrocyte distribution width (RBC) [Ratio] 15.0 % Normal 11.9-15.3 [facility] Comment on above: Performed By: #### C BC, CMP, PAB #### [facility] [address] Hematocrit (Bld) [Volume fraction] 26.9 % Low 34.0-46.4 [facility] Comment on above: Performed By: #### C BC, CMP, PAB #### [facility] [address] [place] [address] [place] Hemoglobin (Bld) [Mass/Vol] 9.4 g/dL Low 11.8-15.4 [facility] Comment on above: Performed By: #### C BC, CMP, PAB #### [facility] [address] Lymphocytes (Bld) [#/Vol] 1.2 10*3/uL Normal 1.00-4.8 [facility] Comment on above: Performed By: #### C BC, CMP, PAB #### [facility] [address] Lymphocytes/100 WBC (Bld) 18.6 % Normal . [facility] Comment on above: Performed By: #### C BC, CMP, PAB #### [facility] [address] MCH (RBC) [Entitic mass] 34.3 pg Normal 24.7-34.3 [facility] Comment on above: Performed By: #### C BC, CMP, PAB #### [place] [address] [place] MCV (RBC) [Entitic vol] 98.5 fL Normal 80-100 [facility] Comment on above: Performed By: #### C BC, CMP, PAB #### [address] Mean Corpuscular HGB Conc 34.9 g/dL Normal 32.0-35.0 [facility] Comment on above: Performed By: #### C BC, CMP, PAB #### [facility] [address] [place] [address] [place] Monocytes (Bld) [#/Vol] 0.8 10*3/uL Normal 0.0-0.8 [facility] Comment on above: Performed By: #### C BC, CMP, PAB #### [facility] [address] [place] [address] [place] Monocytes/100 WBC (Bld) 12.3 % Normal . [facility] Comment on above: Performed By: #### C BC, CMP, PAB #### [facility] [address] [place] [address] [place] Neutrophils (Bld) [#/Vol] 4.4 10*3/uL Normal 1.8-7.7 [facility] Comment on above: Performed By: #### C BC, CMP, PAB #### [facility] [address] [place] [address] [place] Neutrophils/100 WBC (Bld) 65.2 % Normal . [facility] Comment on above: Performed By: #### C BC, CMP, PAB #### [facility] [address] NRBC% 0.1 /100{WBC} Normal 0-0.5 [facility] Comment on above: Performed By: #### C BC, CMP, PAB #### [facility] [address] Platelet mean volume (Bld) [Entitic vol] 6.8 fL Normal 6.3-10.7 [facility] Comment on above: Performed By: #### C BC, CMP, PAB #### [facility] [address] [place] [address] [place] Platelets (Bld) [#/Vol] 259 10*3/uL Normal 150-450 [facility] Comment on above: Performed By: #### C BC, CMP, PAB #### [facility] [address] [place] [address] [place] RBC (Bld) [#/Vol] 2.73 10*6/uL Low 3.60-5.00 [facility] Comment on above: Performed By: #### C BC, CMP, PAB #### [facility] [address] [place] [address] [place] WBC (Bld) [#/Vol] 6.7 10*3/uL Normal 3.8-11.6 [facility] Comment on above: Performed By: #### C BC, CMP, PAB #### [facility] [address] [place] [address] [place] Absolute reticulocyte countO rdered By: Will Borwn on 02-02-2023 Reticulocytes (Bld) [#/Vol] 0.063 10*6/uL 0.024-0.08 4 [facility] [place] [facility] Sendou ton 02-02-2023 [place] BB Sendout Sent to [facility] Comment on above: Order Comment: Patho logist Dr. Rosado and patients attending Dr. Muir decided not to other STAT, patients HGB 6.6 but stable. Please work up first thing in the morning 02/02/23. Result Comment: Sent to [facility] for further testing. Final report to follow. PERFORMED BY: [place] [address] PATHOLOGIST WIRE MILL OPERATOR KWADWO PULIDO M.D. Antibody Identificationon Antibody Identification HTLA Normal [facility] Comment on above: Result Comment: Test ing performed and reported by [facility] Basic Metabolic Panelon 01-20 Anion gap [Moles/Vol] 8.8 mmol/L Normal 6.0-15.0 [facility] Comment on above: Performed By: #### H APT, RETIC #### [facility] [address] [place] [address] [place] Calcium [Mass/Vol] 8.6 mg/dL Normal 8.6-10.3 [facility] Comment on above: Performed By: #### H APT, RETIC #### [facility] [address] [place] [id number] [place] Chloride [Moles/Vol] 100 mmol/L Normal 98-107 [facility] Comment on above: Performed By: #### H APT, RETIC #### [facility] [address] [place] [id number] [place] CO2 [Moles/Vol] 25.1 mmol/L Normal 21.0-31.0 [facility] Comment on above: Performed By: #### H APT, RETIC #### [facility] [address] [place] [id number] [place] Creatinine [Mass/Vol] 1.14 mg/dL Normal 0.60-1.20 [facility] Comment on above: Performed By: #### H APT, RETIC #### [facility] [address] [place] [address] [place] Creatinine Clr Calc Pharmacy 39.82 [facility] Comment on above: Performed By: #### H APT, RETIC #### [facility] [address] [place] [address] [place] GFR/1.73 sq M.predicted MDRD (S/P/Bld) [Vol rate/Area] 49.582 mL/min/{1.73_m2} [facility] Comment on above: Performed By: #### H APT, RETIC #### [place] [address] [place] Glucose [Mass/Vol] 92 mg/dL Normal 70-100 [facility] Comment on above: Result Comment: [facility] Glucose Reference Range is dependent on time and content of last meal. Glucose of more than 200 mg/dL in a nonstressed, ambulatory subject supports the diagnosis of Diabetes Mellitus. ADA recommended reference range Performed By: #### H APT, RETIC #### [place] [address] [place] Potassium [Moles/Vol] 3.9 mmol/L Normal 3.5-5.1 [facility] Comment on above: Performed By: #### H APT, RETIC #### [place] [address] [place] Sodium [Moles/Vol] 130 mmol/L Low 136-145 [facility] Comment on above: Performed By: #### H APT, RETIC #### [place] [address] [place] Urea nitrogen [Mass/Vol] 16 mg/dL Normal 7-25 [facility] Comment on above: Performed By: #### H APT, RETIC #### [address] Blood Bank Pathologist Lulu gallagher 02-02-2023 Blood Bank Pathologist Review Sent to Pathology [facility] Comment on above: Result Comment: PERF ORMED BY: [place] [phone] PATHOLOGIST WIRE MILL OPERATOR KWADWO PULIDO M.D. Complete Blood Count Auto Di ffon 02-02-2023 Basophils (Bld) [#/Vol] 0.0 10*3/uL Normal 0.0-0.2 [facility] Comment on above: Result Comment: PERF ORMED BY: [facility] [address] [place] [id number] PATHOLOGIST WIRE MILL OPERATOR KWADWO PULIDO M.D. Performed By: #### C BC ####[address] [address] [facility] Basophils/100 WBC (Bld) 0.3 % Normal . [facility] Comment on above: Performed By: #### C BC ####[address] [address] [facility] Eosinophils (Bld) [#/Vol] 0.1 10*3/uL Normal 0.0-0.45 [facility] Comment on above: Performed By: #### C BC ####[address] [address] [facility] Eosinophils/100 WBC (Bld) 1.2 % Normal . [facility] Comment on above: Performed By: #### C BC ####[address] [address] [facility] Erythrocyte distribution width (RBC) [Ratio] 14.8 % Normal 11.9-15.3 [facility] Comment on above: Performed By: #### C BC ####[address] [address] [facility] Hematocrit (Bld) [Volume fraction] 18.9 % Off scale low 34.0-46.4 [facility] Comment on above: Result Comment: Crit ical value result called at 0657 on 02/02/23 Performed By: #### C BC ####[address] [address] [facility] Hemoglobin (Bld) [Mass/Vol] 6.6 g/dL Low 11.8-15.4 [facility] Comment on above: Performed By: #### C BC ####[place] [id number] [facility] Lymphocytes (Bld) [#/Vol] 0.8 10*3/uL Low 1.00-4.8 [facility] Comment on above: Performed By: #### C BC ####[place] [id number] [facility] Lymphocytes/100 WBC (Bld) 13.6 % Normal . [facility] Comment on above: Performed By: #### C BC ####[place] [id number] [facility] MCH (RBC) [Entitic mass] 34.9 pg High 24.7-34.3 [facility] Comment on above: Performed By: #### C BC ####[place] [id number] [facility] MCV (RBC) [Entitic vol] 100.5 fL High 80-100 [facility] Comment on above: Performed By: #### C BC ####[place] [id number] [facility] Mean Corpuscular HGB Conc 34.8 g/dL Normal 32.0-35.0 [facility] Comment on above: Performed By: #### C BC ####[place] [id number] [facility] Monocytes (Bld) [#/Vol] 0.6 10*3/uL Normal 0.0-0.8 [facility] Comment on above: Performed By: #### C BC ####[place] [id number] [facility] Monocytes/100 WBC (Bld) 10.9 % Normal . [facility] Comment on above: Performed By: #### C BC ####[place] [id number] [facility] Neutrophils (Bld) [#/Vol] 4.3 10*3/uL Normal 1.8-7.7 [facility] Comment on above: Performed By: #### C BC ####[address] [place] [address] [facility] Neutrophils/100 WBC (Bld) 74.0 % Normal . [facility] Comment on above: Performed By: #### C BC ####[place] [id number] [facility] NRBC% 0.2 /100{WBC} Normal 0-0.5 [facility] Comment on above: Performed By: #### C BC ####[address] Platelet mean volume (Bld) [Entitic vol] 6.6 fL Normal 6.3-10.7 [facility] Comment on above: Performed By: #### C BC ####[address] Platelets (Bld) [#/Vol] 267 10*3/uL Normal 150-450 [facility] Comment on above: Performed By: #### C BC ####[address] RBC (Bld) [#/Vol] 1.89 10*6/uL Low 3.60-5.00 [facility] Comment on above: Performed By: #### C BC ####[address] WBC (Bld) [#/Vol] 5.8 10*3/uL Normal 3.8-11.6 [facility] Comment on above: Performed By: #### C BC ####[place] [id number] [facility] Cortisolon 02-02-2023 Cortisol 14.8 ug/dL Normal [facility] Comment on above: Result Comment: Refe rence range: AM 6 - 24 ug/dl PM <10 ug/dl PERFORMED BY: [place] [address] PATHOLOGIST WIRE MILL OPERATOR KWADWO PULIDO M.D. Performed By: #### H APT, RETIC #### [address] Performed By: #### L DH, DAGO, OSMO, FE and TIBC, HARVINDER, BMP ####[facility] [address] [place] [address] [place] Ferritinon 02-02-2023 Ferritin [Mass/Vol] 102.9 ng/mL Normal 11.0-306.8 [facility] Comment on above: Performed By: #### H APT, RETIC #### [facility] [address] Ferritin [Mass/volume] in Se rum or PlasmaOrdered By: Ivy Thomas on 02-02-2023 Ferritin [Mass/Vol] 102.9 ng/mL 11.0-306.8 [facility] Haptoglobinon 02-02-2023 Haptoglobin 156 mg/dL Normal 44-215 [facility] Comment on above: Result Comment: PERF ORMED BY: [facility] [address] [place] [address] PATHOLOGIST WIRE MILL OPERATOR KWADWO PULIDO M.D. Performed By: #### H APT, RETIC #### [facility] [address] Haptoglobin [Mass/volume] in Serum or PlasmaOrdered By: Will Brown on 02-02-2023 Haptoglobin [Mass/Vol] 156 mg/dL 44-215 [facility] Iron [Mass/volume] in Serum or PlasmaOrdered By: Ivy Thomas on 02-02-2023 Iron [Mass/Vol] 36 ug/dL 50-212 [facility] Iron and TIBC Profileon 01-20 % Iron Saturation 12.8 % Low 20-50 [facility] Comment on above: Performed By: #### H APT, RETIC #### [facility] [address] Iron [Mass/Vol] 36 ug/dL Low 50-212 [facility] Comment on above: Performed By: #### H APT, RETIC #### [facility] [address] Total Iron Binding Capacity 281 ug/dL Normal 255-450 [facility] Comment on above: Performed By: #### H APT, RETIC #### [facility] [address] Transferrin [Mass/Vol] 201 mg/dL Low 203-362 [facility] Comment on above: Performed By: #### H APT, RETIC #### [facility] [address] Iron binding capacity [Mass/ volume] in Serum or PlasmaOrdered By: Ivy Thomas on 02-02-2023 Iron binding capacity [Mass/Vol] 281 ug/dL 255-450 [facility] Iron saturation [Mass Fracti on] in Serum or PlasmaOrdered By: Ivy Thomas on 02-02-2023 Iron saturation [Mass fraction] 12.8 % 20-50 [facility] LDH Lactate Dehydrogenaseon 02-02-2023 LDH Lactate Dehydrogenase 282 U/L High 140-271 [facility] Comment on above: Performed By: #### H APT, RETIC #### [address] Lactate dehydrogenase [Enzym atic activity/volume] in Serum or Plasma by Lactate to pyOrdered By: Will Brown on 02-02-2023 LDH Lactate to pyruvate reaction [Catalytic activity/Vol] 282 U/L 140-271 [facility] No Panel InformationOrdered By: Iyv Thomas on 02-02-2023 Urine Osmolality 465 mosm 250-900 [facility] Osmolalityon 02-02-2023 Osmolality 274 mosm Low 278-305 [facility] Comment on above: Result Comment: PERF ORMED BY: [place] [address] PATHOLOGIST WIRE MILL OPERATOR KWADWO PULIDO M.D. Performed By: #### H APT, RETIC #### [facility] [address] [place] [address] Osmolality measurementOrdere d By: Ivy Thomas on 02-02-2023 Osmolality (Unsp spec) [Osmolality] 274 mosm 278-305 [facility] Osmolality, Urineon 02-03-20 Osmolality, Urine 465 mosm Normal 250-900 [facility] Comment on above: Result Comment: PERF ORMED BY: [facility] [address] [place] [address] PATHOLOGIST WIRE MILL OPERATOR KWADWO PULIDO M.D. Performed By: #### U OSCAR AVALOS ####[facility] [address] Random cortisol measurementO rdered By: Ivy Thomas on 02-02-2023 Cortisol [Mass/Vol] 14.8 ug/dL [facility] Comment on above: Reference range: AM 6 - 24 ug/dl PM <10 ug/dl Reticulocyte Counton 023 Reticulocyte Number 0.063 10*6/uL Normal 0.024-0 .08 4 [facility] Comment on above: Result Comment: PERF ORMED BY: [facility] [address] [place] [address] PATHOLOGIST WIRE MILL OPERATOR KWADWO PULIDO M.D. Performed By: #### H APT, RETIC #### [facility] [address] [place] [address] [place] Reticulocyte Percent 3.3 % High 0.5-1.5 [facility] Comment on above: Performed By: #### H APT, RETIC #### [facility] [address] [place] [address] [place] Reticulocytes/100 RBC Auto ( Bld)Ordered By: Will Brown on 02-02-2023 Reticulocytes/100 RBC (Bld) 3.3 % 0.5-1.5 [facility] Sodium [Moles/volume] in Uri neOrdered By: Ivy Thomas on 02-02-2023 Sodium (U) [Moles/Vol] 65.0 mmol/L F [facility] Comment on above: No reference range e stablished Sodium, Urineon 02-02-2023 Sodium (U) [Moles/Vol] 65.0 mmol/L Normal [facility] Comment on above: Result Comment: No r eference range established PERFORMED BY: [place] [address] PATHOLOGIST WIRE MILL OPERATOR KWADWO PULIDO M.D. Performed By: #### U OSCAR AVALOS ####[facility] Uzp[address] [place] [address] [facility] Transferrin [Mass/volume] in Serum or PlasmaOrdered By: Ivy Thomas on 02-02-2023 Transferrin [Mass/Vol] 201 mg/dL 203-362 [facility] ABO/Rh Retypeon 02-01-2023 ABO/RH Recheck Result Positive Normal [facility] Comment on above: Result Comment: PERF ORMED BY: [facility] [address] [facility] [place] [address] PATHOLOGIST WIRE MILL OPERATOR KWADWO PULIDO M.D. Alanine aminotransferase [En zymatic activity/volume] in Serum or PlasmaOrdered By: Syd Muir on 02-01-2023 ALT [Catalytic activity/Vol] 14 U/L 7-52 [facility] Albumin [Mass/volume] in Ser um or Plasma by Bromocresol green (BCG) dye binding methoOrdered By: Syd Muir on 02-01-2023 Albumin BCG dye [Mass/Vol] 3.3 g/dL 3.5-5.7 [facility] Alkaline phosphatase [Enzyma tic activity/volume] in Serum or PlasmaOrdered By: Syd Muir on 02-01-2023 ALP [Catalytic activity/Vol] 100 U/L 34-104 [facility] Aspartate aminotransferase [ Enzymatic activity/volume] in Serum or PlasmaOrdered By: Syd Muir on 02-01-2023 AST [Catalytic activity/Vol] 24 U/L 13-39 [facility] Bilirubin.total [Mass/volume ] in Serum or PlasmaOrdered By: Syd Muir on 02-01-2023 Bilirubin [Mass/Vol] 0.8 mg/dL 0.3-1.0 [facility] Complete Blood Count Auto Di ffon 02-01-2023 Basophils (Bld) [#/Vol] 0.0 10*3/uL Normal 0.0-0.2 [facility] Comment on above: Result Comment: PERF ORMED BY: [facility] [address] [place] [address] PATHOLOGIST WIRE MILL OPERATOR KWADWO PULIDO M.D. Performed By: #### C BC, CMP, PAB #### [facility] [address] [place] [address] [place] Basophils/100 WBC (Bld) 0.4 % Normal . [facility] Comment on above: Performed By: #### C BC, CMP, PAB #### [facility] [address] Eosinophils (Bld) [#/Vol] 0.1 10*3/uL Normal 0.0-0.45 [facility] Comment on above: Performed By: #### C BC, CMP, PAB #### [facility] [address] Eosinophils/100 WBC (Bld) 1.7 % Normal . [facility] Comment on above: Performed By: #### C BC, CMP, PAB #### [address] Erythrocyte distribution width (RBC) [Ratio] 14.5 % Normal 11.9-15.3 [facility] Comment on above: Performed By: #### C BC, CMP, PAB #### [address] Hematocrit (Bld) [Volume fraction] 19.4 % Off scale low 34.0-46.4 [facility] Comment on above: Result Comment: Crit ical value result called at 0754 on 02/01/23 Performed By: #### C BC, CMP, PAB #### [address] Hemoglobin (Bld) [Mass/Vol] 6.6 g/dL Low 11.8-15.4 [facility] Comment on above: Performed By: #### C BC, CMP, PAB #### [address] Lymphocytes (Bld) [#/Vol] 0.7 10*3/uL Low 1.00-4.8 [facility] Comment on above: Performed By: #### C BC, CMP, PAB #### [facility] [address] Lymphocytes/100 WBC (Bld) 11.1 % Normal . [facility] Comment on above: Performed By: #### C BC CMP, PAB #### [facility] [address] MCH (RBC) [Entitic mass] 34.6 pg High 24.7-34.3 [facility] Comment on above: Performed By: #### C BC CMP, PAB #### [facility] [address] MCV (RBC) [Entitic vol] 101.4 fL High 80-100 [facility] Comment on above: Performed By: #### C ERROL CMP, PAB #### [address] Mean Corpuscular HGB Conc 34.1 g/dL Normal 32.0-35.0 [facility] Comment on above: Performed By: #### C BC CMP, PAB #### [place] [address] [place] Monocytes (Bld) [#/Vol] 0.5 10*3/uL Normal 0.0-0.8 [facility] Comment on above: Performed By: #### C ERROL CMP, PAB #### [place] [address] [place] Monocytes/100 WBC (Bld) 7.7 % Normal . [facility] Comment on above: Performed By: #### C BC CMP, PAB #### [place] [address] [place] Neutrophils (Bld) [#/Vol] 4.8 10*3/uL Normal 1.8-7.7 [facility] Comment on above: Performed By: #### C BC CMP, PAB #### [place] [address] [place] Neutrophils/100 WBC (Bld) 79.1 % Normal . [facility] Comment on above: Performed By: #### C BC CMP, PAB #### [facility] [address] NRBC% 0.2 /100{WBC} Normal 0-0.5 [facility] Comment on above: Performed By: #### C BC, CMP, PAB #### [address] Platelet mean volume (Bld) [Entitic vol] 6.7 fL Normal 6.3-10.7 [facility] Comment on above: Performed By: #### C BC, CMP, PAB #### [address] Platelets (Bld) [#/Vol] 278 10*3/uL Normal 150-450 [facility] Comment on above: Performed By: #### C BC, CMP, PAB #### [address] RBC (Bld) [#/Vol] 1.91 10*6/uL Low 3.60-5.00 [facility] Comment on above: Performed By: #### C BC, CMP, PAB #### [address] WBC (Bld) [#/Vol] 6.1 10*3/uL Normal 3.8-11.6 [facility] Comment on above: Performed By: #### C BC, CMP, PAB #### [address] Comprehensive Metabolic Pane edel 02-01-2023 Albumin [Mass/Vol] 3.3 g/dL Low 3.5-5.7 [facility] Comment on above: Performed By: #### C BC, CMP, PAB #### [address] Albumin/Globulin [Mass ratio] 1.7 {ratio} Normal [facility] Comment on above: Performed By: #### C BC, CMP, PAB #### [address] ALP [Catalytic activity/Vol] 100 U/L Normal 34-104 [facility] Comment on above: Performed By: #### C BC, CMP, PAB #### [facility] [address] [place] [id number] [place] ALT [Catalytic activity/Vol] 14 U/L Normal 7-52 [facility] Comment on above: Performed By: #### C BC, CMP, PAB #### [facility] [address] [place] [address] [place] Anion gap [Moles/Vol] 10.0 mmol/L Normal 6.0-15.0 [facility] Comment on above: Performed By: #### C BC, CMP, PAB #### [facility] [address] [place] [id number] [place] AST [Catalytic activity/Vol] 24 U/L Normal 13-39 [facility] Comment on above: Performed By: #### C BC, CMP, PAB #### [facility] [address] [place] [id number] [place] Bilirubin [Mass/Vol] 0.8 mg/dL Normal 0.3-1.0 [facility] Comment on above: Performed By: #### C BC, CMP, PAB #### [facility] [address] [place] [phone] [place] Calcium [Mass/Vol] 8.4 mg/dL Low 8.6-10.3 [facility] Comment on above: Performed By: #### C BC, CMP, PAB #### [facility] [address] [place] [phone] [place] Chloride [Moles/Vol] 99 mmol/L Normal 98-107 [facility] Comment on above: Performed By: #### C BC, CMP, PAB #### [facility] [address] [place] [address] [place] CO2 [Moles/Vol] 26.4 mmol/L Normal 21.0-31.0 [facility] Comment on above: Performed By: #### C BC, CMP, PAB #### [facility] [address] [place] [address] [place] Creatinine [Mass/Vol] 1.16 mg/dL Normal 0.60-1.20 [facility] Comment on above: Performed By: #### C MEGGAN NORTON, PAB #### [facility] [address] [place] [address] [place] Creatinine Clr Calc Pharmacy 39.13 [facility] Comment on above: Performed By: #### C MEGGAN NORTON, PAB #### [facility] [address] [place] [address] [place] GFR/1.73 sq M.predicted MDRD (S/P/Bld) [Vol rate/Area] 48.558 mL/min/{1.73_m2} Normal [facility] Comment on above: Performed By: #### C MEGGAN NORTON, PAB #### [facility] [address] Globulin (S) [Mass/Vol] 1.9 g/dL Normal [facility] Comment on above: Performed By: #### C MEGGAN NORTON, PAB #### [address] Glucose [Mass/Vol] 94 mg/dL Normal 70-100 [facility] Comment on above: Result Comment: [facility] Glucose Reference Range is dependent on time and content of last meal. Glucose of more than 200 mg/dL in a nonstressed, ambulatory subject supports the diagnosis of Diabetes Mellitus. ADA recommended reference range Performed By: #### C MEGGAN NORTON, PAB #### [facility] [address] Potassium [Moles/Vol] 4.4 mmol/L Normal 3.5-5.1 [facility] Comment on above: Performed By: #### C MEGGAN NORTON, PAB #### [facility] [address] Protein [Mass/Vol] 5.2 g/dL Low 6.4-8.9 [facility] Comment on above: Performed By: #### C MEGGAN NORTON, PAB #### [facility] [address] Sodium [Moles/Vol] 131 mmol/L Low 136-145 [facility] Comment on above: Performed By: #### C MEGGAN NORTON, PAB #### [facility] [address] [place] [phone] [facility] Urea nitrogen [Mass/Vol] 17 mg/dL Normal 7-25 [facility] Comment on above: Performed By: #### C BC, CMP, PAB #### [facility] [address] [place] [phone] [facility] Direct [place] 02-01-2023 Polyspecific AHG Negative Normal [facility] Comment on above: Result Comment: PERF ORMED BY: [facility] [address] [place] [address] PATHOLOGIST WIRE MILL OPERATOR KWADWO PULIDO M.D. Globulin Calc (S) [Mass/Vol] Ordered By: Syd Muir on 02-01-2023 Globulin (S) [Mass/Vol] 1.9 g/dL F [facility] LeukoReduced RBCon LeukoReduced RBC TRANSFUSED 02/02/232056 Normal [facility] Prealbuminon 02-01-2023 Prealbumin [Mass/Vol] 14.7 mg/dL Low 17.0-34.0 [facility] Comment on above: Result Comment: PERF ORMED BY: [place] [address] PATHOLOGIST WIRE MILL OPERATOR KWADWO PULIDO M.D. Performed By: #### C BC, CMP, PAB #### [facility] [address] [place], [place] [id number] [facility] Prealbumin [Mass/volume] in Serum or PlasmaOrdered By: Syd Muir on 02-01-2023 Prealbumin [Mass/Vol] 14.7 mg/dL 17.0-34.0 [facility] Protein [Mass/volume] in Ser um or PlasmaOrdered By: Syd Muir on 02-01-2023 Protein [Mass/Vol] 5.2 g/dL 6.4-8.9 [facility] Serum or plasma albumin/glob ulin mass ratioOrdered By: Syd Muir on 02-01-2023 Albumin/Globulin [Mass ratio] 1.7 {ratio} [facility] Type and Screenon 02-01-2023 ABO and Rh group Nom (Bld) Blood group A Rh(D) positive [facility] Comment on above: Order Comment: Trans fuse now? Y Number of units to transfuse now? 2 Result Comment: PERF ORMED BY: [place] [address] PATHOLOGIST WIRE MILL OPERATOR KWADWO PULIDO M.D. US venous duplex LE BIon US venous duplex LE BI [facility] [address] [place] [id number] Ultrasound Report Signed Patient: Kiki Moore MR#: [id number] [birth year] : 1945 Acct:[id number] Age/Sex: 78 / F ADM Date: 01/31/23 Loc: Room: 8J8042-8 Type: ADM IN Attending Dr: Syd Muir [...] Arvind James MD02/01/2023 6:52 AM [facility]ation [facility] Tech: Sabina Brandt Transcribed By: [facility] 02/01/23 0652 Dictated By: Arvind James MD 02/01/23 0651 Signed By: 02/01/23 0652 [facility] XR knee LT 4V*on 02-01-2023 XR knee LT 4V* [facility] [address] [place] [id number] XRay Report Signed Patient: Kiki Moore MR#: [id number] 01 : 1945 Acct:[id number] Age/Sex: 78 / F ADM Date: 01/31/23 Loc: Room: 9P1856-1 Type: ADM IN Attending Dr: Syd Muir [...] Catalina Strickland M.D.02/01/2023 3:17 PM Dictation Location: [place] [address] Transcribed By: [facility] 02/01/23 151 Dictated By: Catalina Strickland MD 02/01/23 151 Signed By: 02/01/23 1517 [facility] CBC panel Auto (Bld)on 01-19 Erythrocyte distribution width (RBC) [Ratio] 13.2 % Normal 11.5-15.0 [facility] Comment on above: Order Comment: Speci men Type: BLOOD SPECIMENOrdering Facility: [facility] Address: [address] [place] [id number] Performed By: #### 5 8410-2 ####[facility]ORY[facility] [id number] [facility] [place] [address] [place] Hematocrit (Bld) [Volume fraction] 23.2 % Low 36.0-46.0 [facility] Comment on above: Order Comment: Tamiko marshall Type: BLOOD SPECIMENOrdering Facility: [facility] Address: [address] [place] [address] Performed By: #### 5 8410-2 ####[facility] [id number] [place] [address] [place] Hemoglobin (Bld) [Mass/Vol] 7.6 g/dL Low 11.5-15.5 [facility] Comment on above: Order Comment: Speci men Type: BLOOD SPECIMENOrdering Facility: [facility] Address: [address] [place] [address] Performed By: #### 5 8410-2 ####[facility] [id number] [address] [place] MCH (RBC) [Entitic mass] 33.2 pg Normal 26.0-34.0 [facility] Comment on above: Order Comment: Speci men Type: BLOOD SPECIMENOrdering Facility: [facility] Address: [address] [place] [address] Performed By: #### 5 8410-2 ####[facility] [id number] [address] [place] MCHC (RBC) [Mass/Vol] 32.8 g/dL Normal 30.5-36.0 [facility] Comment on above: Order Comment: Speci men Type: BLOOD SPECIMENOrdering Facility: [facility] Address: [address] [place] [address] Performed By: #### 5 8410-2 ####[facility] [id number] [address] [place] MCV (RBC) [Entitic vol] 101.3 fL High 80.0-100.0 [facility] Comment on above: Order Comment: Speci men Type: BLOOD SPECIMENOrdering Facility: [facility] Address: [address] [place], [place] [address] Performed By: #### 5 8410-2 ####[facility] [id number] [address] [place] Nucleated RBC (Bld) [#/Vol] 10*3/uL Normal <0.01 [facility] Comment on above: Order Comment: Speci men Type: BLOOD SPECIMENOrdering Facility: [facility] Address: [address] [place] [address] Performed By: #### 5 8410-2 ####[facility] [id number] [place] [address] [place] Platelet mean volume (Bld) [Entitic vol] 10.2 fL Normal 9.0-12.7 [facility] Comment on above: Order Comment: Speci men Type: BLOOD SPECIMENOrdering Facility: [facility] Address: [address] [place] [address] Performed By: #### 5 8410-2 ####[facility] [id number] [place] [address] [place] Platelets (Bld) [#/Vol] 153 10*3/uL Normal 150-400 [facility] Comment on above: Order Comment: Speci men Type: BLOOD SPECIMENOrdering Facility: [facility] Address: [address] Performed By: #### 5 8410-2 ####[facility] [id number] [place] [address] [place] RBC (Bld) [#/Vol] 2.29 10*6/uL Low 3.90-5.20 [facility] Comment on above: Order Comment: Speci men Type: BLOOD SPECIMENOrdering Facility: [facility] Address: [address] Performed By: #### 5 8410-2 ####[facility]ATORYIA [id number] [place] [id number] [place] WBC (Bld) [#/Vol] 12.19 10*3/uL High 3.70-11.00 [facility] Comment on above: Order Comment: Speci men Type: BLOOD SPECIMENOrdering Facility: [facility] Address: [address] [place] [address] Performed By: #### 5 8410-2 ####[facility] [id number] [facility] [place] [address] [facility] CNDSon 01-19-2023 [facility] HNO ID: [id number] Author: Gaby Solorzano PA-C Service: Orthopaedic Surgery Author Type: Physician Director Of Land Type: Discharge Summary Filed: 01/19/2023 12:35 PM [...] Patient Condition at Discharge: Stable Discharge Disposition: Fdc Facility DISCHARGE MEDICATION: Medication List START taking [...] Dept Phone 02/10/2023 10:30 AM JUDIT JARRELL [phone] 03/01/2023 1:15 PM JOSHAN MIGUEL Jo [phone] SIGNATURE: Gaby Solorzano PA-C PATIENT NAME: Kiki Moore DATE: 01/19/23 TIME: 11:22 AM Normal [facility] CONSULT PROGon 01-19-2023 CONSULT PROG HNO ID: [id number] Author: Jc Pennington MD Service: Hospital Medicine Author Type: Physician Type: Consult Progress Note Filed: 01/19/2023 11:55 AM Note Text: DEPARTMENT OF HOSPITAL MEDICINE CONSULT PROGRESS NOTE SERVICE DATE: 01/19/2023 SERVICE TIME: 11:51 AM Primary Care Physician: MAINE Arias PA-C NIGHT AND WEEKEND COVERAGE: KINDER COVERAGE: Days: [phone], please contact via ebindle Nights: [phone] - floor: please page CC Hospitalist night cover [phone] - 4th floor: please page CC Hospitalist night cover [phone] - 5th floor: please page CC Hospitalist night cover [phone] Subjective INTERVAL HPI: Pt says she feels [...] January 19, 2023 TIME: 11:51 AM etx [id number] Normal [facility] Magnesium SerPl-mCncon 01-19 Magnesium [Mass/Vol] 1.5 mg/dL Low 1.7-2.3 [facility] Comment on above: Order Comment: Tamiko marshall Type: BLOOD SPECIMENOrdering Facility: [facility] Address: [address] [place] [id number] Performed By: #### 2 4362-6, ####[facility] LABORATORYCLIA [id number] [facility] [place] [address] [facility] [place] Renal function 2000 panelon 01-19-2023 Albumin [Mass/Vol] 3.4 g/dL Low 3.9-4.9 [facility] Comment on above: Order Comment: Specchace marshall Type: BLOOD SPECIMENOrdering Facility: [facility] Address: [address] [place] [address] Performed By: #### 2 4362-6, ####[facility]ORATORYCLIA [id number] [place] [address] [place] Anion gap [Moles/Vol] 12 mmol/L Normal 9-18 [facility] Comment on above: Order Comment: Speci men Type: BLOOD SPECIMENOrdering Facility: [facility] Address: [address] [address] Performed By: #### 2 4362-6, ####[facility]ATORYCLIA [id number] [place] [address] [place] Calcium [Mass/Vol] 8.1 mg/dL Low 8.5-10.2 [facility] Comment on above: Order Comment: Speci men Type: BLOOD SPECIMENOrdering Facility: [facility] Address: [address] [address] Performed By: #### 2 4362-6, ####[facility]ORATORYCLIA [id number] [place] [address] [place] Chloride [Moles/Vol] 97 mmol/L Normal 97-105 [facility] Comment on above: Order Comment: Speci men Type: BLOOD SPECIMENOrdering Facility: [facility] Address: [address] [address] Performed By: #### 2 4362-6, ####[facility]ORATORYIA [id number] [place] [address] [place] CO2 [Moles/Vol] 20 mmol/L Low 22-30 [facility] Comment on above: Order Comment: Speci men Type: BLOOD SPECIMENOrdering Facility: [facility] Address: [address] Performed By: #### 2 4362-6, ####[facility]ORATORYCLIA [id number] [place] [address] [place] Creatinine [Mass/Vol] 1.12 mg/dL High 0.58-0.96 [facility] Comment on above: Order Comment: Speci men Type: BLOOD SPECIMENOrdering Facility: [facility] Address: [address] [place] [address] Performed By: #### 2 4362-6, ####[facility]ORATORYCLIA [id number] [facility] [place] [address] [place] Creatinine and Glomerular filtration rate.predicted panel (S/P/Bld) 51 mL/min/1.73m??? Low >=60 [facility] Comment on above: Order Comment: Tamiko marshall Type: BLOOD SPECIMENOrdering Facility: [facility] Address: [address] Result Comment: Karen mated Glomerular Filtration Rate [...] actual GFR. Performed By: #### 2 4362-6, ####[facility]ATORYCLIA [id number] [facility] [address] [place] Glucose [Mass/Vol] 101 mg/dL High 74-99 [facility] Comment on above: Order Comment: Tamiko marshall Type: BLOOD SPECIMENOrdering Facility: [facility] Address: [address] [place] [address] Result Comment: The [place] Diabetes Association (ADA) provides guidance for cutoff [...] Standards of Medical Care in Diabetes 2016, [place] Diabetes Association. Diabetes Care. 2016.39(Suppl 1). Performed By: #### 2 4362-6, ####[facility]ORATORYCLIA [id number] [place] [address] [place] Phosphate [Mass/Vol] 3.6 mg/dL Normal 2.7-4.8 [facility] Comment on above: Order Comment: Speci men Type: BLOOD SPECIMENOrdering Facility: [facility] Address: [address] [place] [address] Performed By: #### 2 4362-6, ####[facility]ORATORYCLIA [id number] [place] [address] [place] Potassium [Moles/Vol] 4.7 mmol/L Normal 3.7-5.1 [facility] Comment on above: Order Comment: Speci men Type: BLOOD SPECIMENOrdering Facility: [facility] Address: [address] [place] [address] Performed By: #### 2 4362-6, ####[facility] [id number] [place] [id number] [place] Sodium [Moles/Vol] 129 mmol/L Low 136-144 [facility] Comment on above: Order Comment: Speci men Type: BLOOD SPECIMENOrdering Facility: [facility] Address: [address] [place] [address] Performed By: #### 2 4362-6, ####[facility] [id number] [place] [address] [place] Urea nitrogen [Mass/Vol] 33 mg/dL High 7-21 [facility] Comment on above: Order Comment: Speci men Type: BLOOD SPECIMENOrdering Facility: [facility] Address: [address] [place] [address] Performed By: #### 2 4362-6, ####[facility]ORATORYIA [id number] [place] [address] [place] THERAPY NTon 01-19-2023 THERAPY NT HNO ID: [id number] Author: Katerine Shook, PT, DPT Service: Physical Therapy Author Type: Physical Therapist Type: Therapy (PT/OT/Speech/Resp) Filed: 01/19/2023 11:28 AM Note Text: Physical Therapy Treatment SERVICE DATE: 01/19/2023 SERVICE TIME: 09 to 999 ROOM: [place] [address] Total Joint Replacement Discharge Readiness: Pending Physical Therapy Clearance Recommended Discharge Disposition: Acute Rehab Recommended Discharge Disposition Comments: Pt requiring mod A for transfers and unable to tolerate increased ambulation d/t difficulty using the walker with UEs. Pt would benefit from [place] PT [place]. Recommended Discharge Disposition Due to: Patient requires [...] Commode- Raised, Grab Bars- Shower, Lift Chair, Acid Bleacher, Sock Aid, Long Handled Shoe Horn Prior [...] today, unable to lift on her own) JH-HLM: 4: Move to chair / commode [...] Diagnosis: Reduced mobility-other Interventions Provided: Gait Training (99683), Therapeutic Exercise (40771) Therapeutic Exercise (19648) Treatment Minutes: 13 $ Therapeutic Exercise (84698) Billed Units: 1 unit Gait Training (06655) Treatment Minutes: 10 $ Gait Training (83161) Billed Units: 1 unit Training AND Education Provided in: Assistive Device Use, Benefits of In-Hospital Mobility, Discharge Planning, Equipment, Exercise Program, Gait Pattern, Reduction of Deviations, Handout Issued, Precautions/Restrictions, Pre-gait Activities, Role of Physical Therapy, Sitting Balance, Standing Balance, Transfers The Following Therapeutic Skills Were Used: Activity Dosing, Cues for Sequencing/Proper Technique for Activity, Facilitation of Joint R (more content not included)... [facility] THERAPY NT HNO ID: [id number] Author: Alysia Pereira OT/L Service: Occupational Therapy Author Type: Occupational Therapist Type: Therapy (PT/OT/Speech/Resp) Filed: 01/19/2023 9:27 AM Note Text: Occupational Therapy Treatment SERVICE DATE: 01/19/2023 SERVICE TIME: 0822 to 0845 ROOM: [place] [address] Total Joint Replacement Discharge Readiness: Pending Occupational [...] Commode- Raised, Grab Bars- Shower, Lift Chair, Acid Bleacher, Sock Aid, Long Handled Shoe Horn Prior [...] General symptoms and signs-other Interventions Provided: Self Skilled Nursing Management (67649) Self Skilled Nursing Management (07174) Treatment Minutes: 23 $ Self Skilled Nursing Management (72672) Billed Units: 2 units Training AND Education Provided in: Assistive Device Use, Bed Mobility, Benefits of In-Hospital Mobility, Discharge Planning, Expected Functional Level, Positioning, Precautions/Restrictions, Role (more content not included)... Normal [facility] Basic metabolic 2000 panelon 01-18-2023 Anion gap [Moles/Vol] 7 mmol/L Low 9-18 [facility] Comment on above: Order Comment: Speci men Type: BLOOD SPECIMENOrdering Facility: [facility] Address: [address] [place] [address] Performed By: #### 2 4321-2 ####[facility]ORATORYCLIA [id number] [facility] [place] [address] [place] Calcium [Mass/Vol] 8.4 mg/dL Low 8.5-10.2 [facility] Comment on above: Order Comment: Speci men Type: BLOOD SPECIMENOrdering Facility: [facility] Address: [address] [address] Performed By: #### 2 4321-2 ####[facility]ATORYCLIA [id number] [place] [address] [place] Chloride [Moles/Vol] 98 mmol/L Normal 97-105 [facility] Comment on above: Order Comment: Speci men Type: BLOOD SPECIMENOrdering Facility: [facility] Address: [address] [place] [address] Performed By: #### 2 4321-2 ####[facility]ATORYCLIA [id number] [place] [address] [place] CO2 [Moles/Vol] 21 mmol/L Low 22-30 [facility] Comment on above: Order Comment: Speci men Type: BLOOD SPECIMENOrdering Facility: [facility] Address: [address] [place] [address] Performed By: #### 2 4321-2 ####[facility]ATORYCLIA [id number] [place] [address] [place] Creatinine [Mass/Vol] 1.26 mg/dL High 0.58-0.96 [facility] Comment on above: Order Comment: Speci men Type: BLOOD SPECIMENOrdering Facility: [facility] Address: [address] [place], [place] [address] Performed By: #### 2 4321-2 ####[facility]ATORYCLIA [id number] [place] [address] [place] Creatinine and Glomerular filtration rate.predicted panel (S/P/Bld) 44 mL/min/1.73m??? Low >=60 [facility] Comment on above: Order Comment: Speci men Type: BLOOD SPECIMENOrdering Facility: [facility] Address: [address] [place], [place] [address] Result Comment: Karen mated Glomerular Filtration Rate [...] actual GFR. Performed By: #### 2 4321-2 ####[facility] LABORATORYIA [id number] [place] [address] [place] Glucose [Mass/Vol] 161 mg/dL High 74-99 [facility] Comment on above: Order Comment: Speci men Type: BLOOD SPECIMENOrdering Facility: [facility] Address: [address] [place] [address] Result Comment: The [place] Diabetes Association (ADA) provides guidance for cutoff [...] Standards of Medical Care in Diabetes 2016, [place] Diabetes Association. Diabetes Care. 2016.39(Suppl 1). Performed By: #### 2 4321-2 ####[facility]ATORYCLIA [id number] [place] [address] [place] Potassium [Moles/Vol] 5.8 mmol/L High 3.7-5.1 [facility] Comment on above: Order Comment: Speci men Type: BLOOD SPECIMENOrdering Facility: [facility] Address: [address] [place] [address] Performed By: #### 2 4321-2 ####[facility]ATORYCLIA [id number] [place] [address] [place] Sodium [Moles/Vol] 126 mmol/L Low 136-144 [facility] Comment on above: Order Comment: Speci men Type: BLOOD SPECIMENOrdering Facility: [facility] Address: [address] [address] Performed By: #### 2 4321-2 ####[facility]ATORYCLIA [id number] [place] [address] [place] Urea nitrogen [Mass/Vol] 32 mg/dL High 7-21 [facility] Comment on above: Order Comment: Speci men Type: BLOOD SPECIMENOrdering Facility: [facility] Address: [address] [place] [address] Performed By: #### 2 4321-2 ####[facility]ATORYCLIA [id number] [place] [address] [place] CBC panel Auto (Bld)on 01-18 Erythrocyte distribution width (RBC) [Ratio] 13.0 % Normal 11.5-15.0 [facility] Comment on above: Order Comment: Speci men Type: BLOOD SPECIMENOrdering Facility: [facility] Address: [address] [address] Performed By: #### 5 8410-2 ####[facility] LABORATORYCLIA [id number] [place] [address] [place] Hematocrit (Bld) [Volume fraction] 23.1 % Low 36.0-46.0 [facility] Comment on above: Order Comment: Speci men Type: BLOOD SPECIMENOrdering Facility: [facility] Address: [address] [address] Performed By: #### 5 8410-2 ####[facility]ATORYCLIA [id number] [place] [address] [place] Hemoglobin (Bld) [Mass/Vol] 7.8 g/dL Low 11.5-15.5 [facility] Comment on above: Order Comment: Speci men Type: BLOOD SPECIMENOrdering Facility: [facility] Address: [address] [address] Performed By: #### 5 8410-2 ####[facility] [id number] [address] [place] MCH (RBC) [Entitic mass] 34.5 pg High 26.0-34.0 [facility] Comment on above: Order Comment: Speci men Type: BLOOD SPECIMENOrdering Facility: [facility] Address: [address] [place] [address] Performed By: #### 5 8410-2 ####[facility] [id number] [address] [place] MCHC (RBC) [Mass/Vol] 33.8 g/dL Normal 30.5-36.0 [facility] Comment on above: Order Comment: Speci men Type: BLOOD SPECIMENOrdering Facility: [facility] Address: [address] [place] [address] Performed By: #### 5 8410-2 ####[facility] [id number] [address] OF [facility] MCV (RBC) [Entitic vol] 102.2 fL High 80.0-100.0 [facility] Comment on above: Order Comment: Speci men Type: BLOOD SPECIMENOrdering Facility: [facility] Address: [address] [place] [address] Performed By: #### 5 8410-2 ####[facility] [id number] [address] [place] Nucleated RBC (Bld) [#/Vol] 10*3/uL Normal <0.01 [facility] Comment on above: Order Comment: Speci men Type: BLOOD SPECIMENOrdering Facility: [facility] Address: [address] [place] [address] Performed By: #### 5 8410-2 ####[facility] [id number] [address] [place] Platelet mean volume (Bld) [Entitic vol] 9.7 fL Normal 9.0-12.7 [facility] Comment on above: Order Comment: Speci men Type: BLOOD SPECIMENOrdering Facility: [facility] Address: [address] [address] Performed By: #### 5 8410-2 ####[facility] LABORATORYIA [id number] [place] [address] [facility] Platelets (Bld) [#/Vol] 137 10*3/uL Low 150-400 [facility] Comment on above: Order Comment: Speci men Type: BLOOD SPECIMENOrdering Facility: [facility] Address: [address] [place] [address] Performed By: #### 5 8410-2 ####[facility]ITAL[facility] [id number] [place] [id number] [facility] [place] RBC (Bld) [#/Vol] 2.26 10*6/uL Low 3.90-5.20 [facility] Comment on above: Order Comment: Speci men Type: BLOOD SPECIMENOrdering Facility: [facility] Address: [address] [address] Performed By: #### 5 8410-2 ####[facility]ITALIA [id number] [place] [id number] [facility] [place] WBC (Bld) [#/Vol] 11.61 10*3/uL High 3.70-11.00 [facility] Comment on above: Order Comment: Speci men Type: BLOOD SPECIMENOrdering Facility: [facility] Address: [address] [place] [address] Performed By: #### 5 8410-2 ####[facility]ITALIA [id number] [place] [id number] [facility] [place] CONSULT PROGon 01-18-2023 CONSULT PROG HNO ID: [id number] Author: Jc Pennington MD Service: Hospital Medicine Author Type: Physician Type: Consult Progress Note Filed: 01/18/2023 2:52 PM Note Text: DEPARTMENT OF HOSPITAL MEDICINE CONSULT PROGRESS NOTE SERVICE DATE: 01/18/2023 SERVICE TIME: 2:46 PM Primary Care Physician: MAINE Arias, PA-C NIGHT AND WEEKEND COVERAGE: KARINA COVERAGE: Days: [phone], please contact via [employer] Nights: [phone] - 3rd floor: please page CC Hospitalist night cover [phone] - 4th floor: please page [facility] Hospitalist night cover [phone] - 5th floor: please page [facility] Hospitalist night cover [phone] Subjective INTERVAL HPI: Pt says she feels [...] January 18, 2023 TIME: 2:46 PM etx [id number] [facility] THERAPY NT 01-18-2023 THERAPY NT HNO ID: [id number] Author: Katerine Shook, PT, DPT Service: Physical Therapy Author Type: Physical Therapist Type: Therapy (PT/OT/Speech/Resp) Filed: 01/18/2023 2:43 PM Note Text: Physical Therapy Treatment SERVICE DATE: 01/18/2023 SERVICE TIME: 1405 to 1428 ROOM: [place] [address] Total Joint Replacement Discharge Readiness: Pending Physical Therapy Clearance Recommended Discharge Disposition: Acute Rehab Recommended Discharge Disposition Comments: Pt requiring mod A for transfers and unable to tolerate increased ambulation d/t difficulty using the walker with UEs. Pt would benefit from post[place]acute PT [place]. Recommended Discharge Disposition Due to: Patient requires [...] Commode- Raised, Grab Bars- Shower, Lift Chair, Acid Bleacher, Sock Aid, Long Handled Shoe Horn Prior [...] Diagnosis: Reduced mobility-other Interventions Provided: Gait Training (93813), Therapeutic Exercise (01674) Therapeutic Exercise (35260) Treatment Minutes: 15 $ Therapeutic Exercise (36326) Billed Units: 1 unit Gait Training (85615) Treatment Minutes: 8 $ Gait Training (01953) Billed Units: 1 unit Training AND Education Provided in: Assistive Device Use, Benefits of In-Hospital Mobility, Discharge Planning, Equipment, Exercise Program, Gait Pattern, Reduction of Deviations, Handout Issued, Precautions/Restrictions, Pre-gait Activities, Role of Physical Therapy, Sitting Balance, Nam (more content not included)... Normal [facility] THERAPY NT HNO ID: [id number] Author: Alysia Pereira OT/L Service: Occupational Therapy Author Type: Occupational Therapist Type: Therapy (PT/OT/Speech/Resp) Filed: 01/18/2023 1:43 PM Note Text: Occupational Therapy Evaluation SERVICE DATE: 01/18/2023 SERVICE TIME: 1049 to 1127 ROOM: [place] [address] Total Joint Replacement Discharge Readiness: Pending Occupational [...] Commode- Raised, Grab Bars- Shower, Lift Chair, Acid Bleacher, Sock Aid, Long Handled Shoe Horn Prior [...] symptoms and signs-other Interventions Provided: Evaluation, Self Skilled Nursing Management (92251) $ Evaluation - Low (50555) Billed Units: 1 unit Self Skilled Nursing Management (75485) Treatment Minutes: 23 $ Self Skilled Nursing Management (86918) Billed Units: 2 units Training AND Education Provided in: Adaptive Equipment/DME, Assistive Device Use, Benefits of In-Hospital Mobility, Discharge Planning, Expected Functional Level, Grooming Tasks, Lower Extremity Dressing, Positioning, Precautions/Restrictions, Role of Occupational Therapy, Standing Balance to Improve [place] with ADLs/Self-Care, Transfer - Sit to Stand The Following Therapeutic Skills Were Used: Activity Dosing, Cues for Sequencing/Proper Technique for Activity, Cuing Verbal, Movement Fa (more content not included)... Normal [facility] THERAPY NT HNO ID: [id number] Author: Katerine Shook, PT, DPT Service: Physical Therapy Author Type: Physical Therapist Type: Therapy (PT/OT/Speech/Resp) Filed: 01/18/2023 9:40 AM Note Text: Physical Therapy Treatment SERVICE DATE: 01/18/2023 SERVICE TIME: 0850 to 15 ROOM: [place] [address] Total Joint Replacement Discharge Readiness: Pending Physical [...] Commode- Raised, Grab Bars- Shower, Lift Chair, Acid Bleacher, Sock Aid (leg hydrologic modeler) Prior Functional Level: Within Functional Limits Prior [...] Diagnosis: Reduced mobility-other Interventions Provided: Therapeutic Activity (74745), Therapeutic Exercise (74798) Therapeutic Exercise (45845) Treatment Minutes: 10 $ Therapeutic Exercise (84770) Billed Units: 1 unit Therapeutic Activity (93358) Treatment Minutes: 15 $ Therapeutic Activity (99245) Billed Units: 1 unit Training AND Education [...] Task Learning, Physica (more content not included)... [facility] ANES POSTPROC EVALon 023 ANES POSTPROC EVAL HNO ID: [id number] Author: Pedro Santana MD Service: Anesthesiology Author Type: Anesthesiologist Type: Anesthesia Postprocedure Evaluation Filed: 01/17/2023 3:48 PM Note Text: POST ANESTHESIA EVALUATION NOTE : 1945 Procedure Summary Date: 01/17/23 Room / Location: OR / AV OR Anesthesia Start: 734 Anesthesia [...] January 17, 2023 TIME: 3:48 PM CSN: [id number] [facility] ANES PRE-OPon 01-17-2023 ANES PRE-OP HNO ID: [id number] Author: Pedro Santana MD Service: Anesthesiology Author Type: Anesthesiologist Type: Anesthesia Preprocedure Evaluation Filed: 01/17/2023 7:23 AM Note Text: ANESTHESIOLOGY DAY OF SURGERY NOTE : 1945 Procedure Information Date/Time: 01/17/23729 Procedure: ARTHROPLASTY REPLACE JOINT TOTAL KNEE AIDA (Left: Knee) Location: AV OR04 / AV OR Surgeons: Shan Box [...] none. Vitals Value Taken Time BP 147/71 01/17/23651 Pulse 62 01/17/2352 Resp 16 01/17/2352 Temp 36.1 ?C (97 ?F) 01/17/23 06 SpO2 95 % 01/17/23651 Facility-Administered Medications as [...] January 17, 2023 TIME: 7:23 AM CSN: [id number] [facility] CONSULTon 01-17-2023 CONSULT HNO ID: [id number] Author: Miguelina Pedraza PA-C Service: Hospital Medicine Author Type: Physician Director Of Land Type: Consults Filed: 01/17/2023 9:18 PM Note Text: DEPARTMENT OF HOSPITAL MEDICINE INITIAL CONSULT SERVICE DATE: 01/17/2023 SERVICE TIME: 9:08 PM Primary Care Physician: MAINE Arias, PA-C NIGHT AND WEEKEND COVERAGE: KARINA COVERAGE: Days: [phone], please contact via [employer]bindle Nights: [phone] - 3rd floor: please page CC Hospitalist night cover [phone] - 4th floor: please page CC Hospitalist night cover [phone] - 5th floor: please page CC Hospitalist night cover [phone] REASON FOR CONSULT: medical management REQUESTING PHYSICIAN: [...] ORAL DAILY aluminum-magn (more content not included)... [facility] OPERATIVE NOon 01-17-2023 OPERATIVE NO HNO ID: [id number] Author: Shan Box MD Service: Orthopaedic Surgery Author Type: Physician Type: Operative Report Filed: 01/17/2023 10:23 AM Note Text: [facility] OPERATIVE REPORT PATIENT NAME: Kiki Moore AGE: [age] year old LOG ID: [id number] Surgery Date: 01/17/2023 SURGEON: Shan Box MD SENIOR PROGRAM PLANNER: Judit Jarrell PA-C, SA, her assistance consisted [...] banked allogenic blood if medically necessary. IMPLANTS: [place] [employer] Total Knee System SIZE TYPE Posterior Stabilized Femur 3 [place] Tibia 3 Aida Patella 31 mm [place] Polyethylene 9 TS Aida OPERATIVE FINDINGS: There [...] which was verified with the spacer block covering and lining supervisor. Trial prosthesis was then removed. The tourniquet was deflated and hemostasis was obtained. We then jet lav (more content not included)... Normal [facility] THERAPY [facility] 01-17-2023 THERAPY NT HNO ID: [id number] Author: Katerine Shook, PT, DPT Service: Physical Therapy Author Type: Physical Therapist Type: Therapy (PT/OT/Speech/Resp) Filed: 01/17/2023 2:36 PM Note Text: Physical Therapy Evaluation SERVICE DATE: 01/17/2023 SERVICE TIME: 1400 to 1428 ROOM: [facility] () Total Joint Replacement Discharge [...] Commode- Raised, Grab Bars- Shower, Lift Chair, Acid Bleacher, Sock Aid (leg hydrologic modeler) Prior Functional Level: Within Functional Limits Prior [...] to SLR but was able to LAQ) -HLM: 4: Move to chair / commode [...] Reduced mobility-other Interventions Provided: Evaluation, Therapeutic Exercise (67208), Therapeutic Activity (25708) $ Evaluation-Low (08311) Billed Units: 1 unit Therapeutic Exercise (87915) Treatment Minutes: 5 Therapeutic Activity (96358) Treatment Minutes: 8 $ Therapeutic Activity (42888) Billed Units: 1 unit Training AND Education [...] clinical documentation flows (more content not included)... Normal [facility] XR KNEE 2V AP/LAT LTon 01-17 XR [...] ARTHROPLASTY WITH PATELLAR RESURFACING, NEW SINCE 10/26/2022. 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: MAGDALENE Transcribe Date/Time: Jan 17 2023 3:21P Dictated by : ROCCO STEWART MD This examination was interpreted and the report reviewed and electronically signed by: ROCCO STEWART MD on Jan 17 2023 3:23PM EST [id number] Normal [facility] CNCOon 01-02-2023 CNCO Letter Text Normal [facility] Comprehensive metabolic 2000 panelon 12-30-2022 Albumin [Mass/Vol] 4.2 g/dL Normal 3.9-4.9 [facility] Comment on above: Order Comment: Speci men Type: BLOOD SPECIMENOrdering Facility: [facility] Address: [address] [place] [address] Performed By: #### 2 4323-8 ####[facility] LABCLIA [id number] [place] [address] [place] ALP [Catalytic activity/Vol] 135 U/L High 34-123 [facility] Comment on above: Order Comment: Speci men Type: BLOOD SPECIMENOrdering Facility: [facility] Address: [address] [place] [address] Performed By: #### 2 4323-8 ####[facility] LABCLIA [id number] [place] [address] [place] ALT [Catalytic activity/Vol] 21 U/L Normal 7-38 [facility] Comment on above: Order Comment: Speci men Type: BLOOD SPECIMENOrdering Facility: [facility] Address: [address] [place] [address] Performed By: #### 2 4323-8 ####[facility] LABCLIA [id number] [place] [address] [place] Anion gap [Moles/Vol] 13 mmol/L Normal 9-18 [facility] Comment on above: Order Comment: Speci men Type: BLOOD SPECIMENOrdering Facility: [facility] Address: [address] [place] [address] Performed By: #### 2 4323-8 ####[facility] LABCLIA [id number] [address] [id number] [address] [place] AST [Catalytic activity/Vol] 36 U/L High 13-35 [facility] Comment on above: Order Comment: Speci men Type: BLOOD SPECIMENOrdering Facility: [facility] Address: [address] [place] [address] Performed By: #### 2 4323-8 ####[facility] LABCLIA [id number] [place] [address] [place] Bilirubin [Mass/Vol] 0.4 mg/dL Normal 0.2-1.3 [facility] Comment on above: Order Comment: Speci men Type: BLOOD SPECIMENOrdering Facility: [facility] Address: [address] [place] [address] Performed By: #### 2 4323-8 ####[facility] LABCLIA [id number] [place] [address] [place] Calcium [Mass/Vol] 9.2 mg/dL Normal 8.5-10.2 [facility] Comment on above: Order Comment: Speci men Type: BLOOD SPECIMENOrdering Facility: [facility] Address: [address] [place] [address] Performed By: #### 2 4323-8 ####[facility] LABIA [id number] [place] [address] [place] Chloride [Moles/Vol] 96 mmol/L Low 97-105 [facility] Comment on above: Order Comment: Speci men Type: BLOOD SPECIMENOrdering Facility: [facility] Address: [address] [place], [place] [address] Performed By: #### 2 4323-8 ####[facility] LABCLIA [id number] [place] [address] [place] CO2 [Moles/Vol] 21 mmol/L Low 22-30 [facility] Comment on above: Order Comment: Speci men Type: BLOOD SPECIMENOrdering Facility: [facility] Address: [address] [place], [place] [address] Performed By: #### 2 4323-8 ####[facility] LABIA [id number] [place] [address] [place] Creatinine [Mass/Vol] 1.15 mg/dL High 0.58-0.96 [facility] Comment on above: Order Comment: Speci men Type: BLOOD SPECIMENOrdering Facility: [facility] Address: [address] Performed By: #### 2 4323-8 ####[facility] LABIA [id number] [place] [address] [place] ESTIMATED GLOMERULAR FILTRATION RATE 49 mL/min/1.73m??? Low >=60 [facility] Comment on above: Order Comment: Speci men Type: BLOOD SPECIMENOrdering Facility: [facility] Address: [address] [address] Result Comment: Karen mated Glomerular Filtration Rate [...] actual GFR. Performed By: #### 2 4323-8 ####[facility] LABIA [id number] [place] [address] [place] Glucose [Mass/Vol] 102 mg/dL High 74-99 [facility] Comment on above: Order Comment: Speci men Type: BLOOD SPECIMENOrdering Facility: [facility] Address: [address] Result Comment: The [place] Diabetes [employer] (ADA) provides guidance for cutoff [...] Standards of Medical Care in Diabetes 2016, [place] Diabetes [employer]. Diabetes Care. 2016.39(Suppl 1). Performed By: #### 2 4323-8 ####[facility] LABCLIA [id number] [place] [address] [place] Potassium [Moles/Vol] 4.9 mmol/L Normal 3.7-5.1 [facility] Comment on above: Order Comment: Speci men Type: BLOOD SPECIMENOrdering Facility: [facility] Address: [address] [place] [address] Performed By: #### 2 4323-8 ####[facility] LABIA [id number] [place] [address] [place] Protein [Mass/Vol] 6.2 g/dL Low 6.3-8.0 [facility] Comment on above: Order Comment: Natii men Type: BLOOD SPECIMENOrdering Facility: [facility] Address: [address] [place] [address] Performed By: #### 2 4323-8 ####[facility] LABIA [id number] [place] [address] [place] Sodium [Moles/Vol] 130 mmol/L Low 136-144 [facility] Comment on above: Order Comment: Speci men Type: BLOOD SPECIMENOrdering Facility: [facility] Address: [address] [place] [address] Performed By: #### 2 4323-8 ####[facility] LABIA [id number] [place] [address] [place] Urea nitrogen [Mass/Vol] 22 mg/dL High 7-21 [facility] Comment on above: Order Comment: Speci men Type: BLOOD SPECIMENOrdering Facility: [facility] Address: [address] [address] Performed By: #### 2 4323-8 ####[facility] LABCLIA [id number] [place] [address] [place] Ferritin SerPl-mCncon 2022 Ferritin [Mass/Vol] 107.0 ng/mL Normal 14.7-205.1 [facility] Comment on above: Order Comment: Speci men Type: BLOOD SPECIMENOrdering Facility: [facility] Address: [address] [address] Performed By: #### 5 0190-8, 2276-4 ####[facility] LABCLIA [id number] [place] [address] [place] Iron and Iron binding capaci ty panelon 12-30-2022 Iron [Mass/Vol] 79 ug/dL Normal 41-186 [facility] Comment on above: Order Comment: Speci men Type: BLOOD SPECIMENOrdering Facility: [facility] Address: [address] [place] [address] Performed By: #### 5 0190-8, 2275-4 ####[facility] LABIA [id number] [address] [place] Iron binding capacity [Mass/Vol] 347 ug/dL Normal 232-386 [facility] Comment on above: Order Comment: Speci men Type: BLOOD SPECIMENOrdering Facility: [facility] Address: [address] Performed By: #### 5 0190-8, 2275-4 ####[facility] LABIA [id number] [place] [address] [place] Iron/TIBC [Molar ratio] 22.8 % Normal 15.0-57.0 [facility] Comment on above: Order Comment: Speci men Type: BLOOD SPECIMENOrdering Facility: [facility] Address: [address] Performed By: #### 5 0190-8, 2276-4 ####[facility] LABIA [id number] [place] [address] [place] Bacteria Ur Culton 3 Bacteria identified Cx Nom (U) ORGANISM ID: 1 10,000 -<50,000 CFU/ml Mixed microbiota Insignificant colony count. No further workup. Normal [facility] Comment on above: Performed By: #### 6 30-4 ####[facility] LABIA [id number] [place] [address] [place] Basic metabolic 2000 panelon 12-23-2022 Anion gap [Moles/Vol] 10 mmol/L Normal 9-18 [facility] Comment on above: Order Comment: Speci men Type: BLOOD SPECIMENOrdering Facility: [facility] Address: [address] [address] Performed By: #### 2 4321-2 ####[facility] LABIA [id number] [place] [address] [place] Calcium [Mass/Vol] 9.5 mg/dL Normal 8.5-10.2 [facility] Comment on above: Order Comment: Speci men Type: BLOOD SPECIMENOrdering Facility: [facility] Address: [address] Performed By: #### 2 4321-2 ####[facility] LABCLIA [id number] [place] [address] [place] Chloride [Moles/Vol] 99 mmol/L Normal 97-105 [facility] Comment on above: Order Comment: Speci men Type: BLOOD SPECIMENOrdering Facility: [facility] Address: [address] Performed By: #### 2 4321-2 ####[facility] LABCLIA [id number] [place] [address] [place] CO2 [Moles/Vol] 22 mmol/L Normal 22-30 [facility] Comment on above: Order Comment: Speci men Type: BLOOD SPECIMENOrdering Facility: [facility] Address: [address] [place] [address] Performed By: #### 2 4321-2 ####[facility] LABCLIA [id number] [place] [address] [place] Creatinine [Mass/Vol] 1.21 mg/dL High 0.58-0.96 [facility] Comment on above: Order Comment: Speci men Type: BLOOD SPECIMENOrdering Facility: [facility] Address: [address] [place] [address] Performed By: #### 2 4321-2 ####[facility] LABCLIA [id number] [address] STATES OF [facility] ESTIMATED GLOMERULAR FILTRATION RATE 47 mL/min/1.73m??? Low >=60 [facility] Comment on above: Order Comment: Speci men Type: BLOOD SPECIMENOrdering Facility: [facility] Address: [address] [place] [address] Result Comment: Karen mated Glomerular Filtration Rate [...] actual GFR. Performed By: #### 2 4321-2 ####[facility] LABCLIA [id number] [place] [address] [place] Glucose [Mass/Vol] 87 mg/dL Normal 74-99 [facility] Comment on above: Order Comment: Speci men Type: BLOOD SPECIMENOrdering Facility: [facility] Address: [address] [place] [address] Result Comment: The [place] Diabetes Association (ADA) provides guidance for cutoff [...] Standards of Medical Care in Diabetes 2016, [place] Diabetes Association. Diabetes Care. 2016.39(Suppl 1). Performed By: #### 2 4321-2 ####[facility] LABCLIA [id number] [place] [address] [place] Potassium [Moles/Vol] 5.1 mmol/L Normal 3.7-5.1 [facility] Comment on above: Order Comment: Speci men Type: BLOOD SPECIMENOrdering Facility: [facility] Address: [address] [address] Performed By: #### 2 4321-2 ####[facility] LABIA [id number] [place] [address] [place] Sodium [Moles/Vol] 131 mmol/L Low 136-144 [facility] Comment on above: Order Comment: Speci men Type: BLOOD SPECIMENOrdering Facility: [facility] Address: [address] [address] Performed By: #### 2 4321-2 ####[facility] LABCLIA [id number] [place] [address] [place] Urea nitrogen [Mass/Vol] 19 mg/dL Normal 7-21 [facility] Comment on above: Order Comment: Speci men Type: BLOOD SPECIMENOrdering Facility: [facility] Address: [address] [address] Performed By: #### 2 4321-2 ####[facility] LABCLIA [id number] [place] [address] [place] CBC W Auto Differential pane l (Bld)on 12-23-2022 Basophils (Bld) [#/Vol] 10*3/uL Normal <0.11 [facility] Comment on above: Order Comment: Speci men Type: BLOOD SPECIMENOrdering Facility: [facility] Address: [address] [place] [address] Performed By: #### 5 7021-8 ####[facility] LABCLIA [id number] [place] [address] [place] Basophils/100 WBC (Bld) 0.3 % Normal C [facility] Comment on above: Order Comment: Speci men Type: BLOOD SPECIMENOrdering Facility: [facility] Address: [address] [place] [address] Performed By: #### 5 7021-8 ####[facility] LABIA [id number] [place] [address] [place] Differential cell count method Nom (Bld) Auto Normal [facility] Comment on above: Order Comment: Speci men Type: BLOOD SPECIMENOrdering Facility: [facility] Address: [address] [place] [address] Performed By: #### 5 7021-8 ####[facility] LABIA [id number] [place] [address] [place] Eosinophils (Bld) [#/Vol] 10*3/uL Normal <0.46 [facility] Comment on above: Order Comment: Speci men Type: BLOOD SPECIMENOrdering Facility: [facility] Address: [address] [place], [place] [address] Performed By: #### 5 7021-8 ####[facility] LABCLIA [id number] [place] [address] [place] Eosinophils/100 WBC (Bld) 0.0 % Normal [facility] Comment on above: Order Comment: Speci men Type: BLOOD SPECIMENOrdering Facility: [facility] Address: [address] Performed By: #### 5 7021-8 ####[facility] LABIA [id number] [place] [address] [place] Erythrocyte distribution width (RBC) [Ratio] 13.7 % Normal 11.5-15.0 [facility] Comment on above: Order Comment: Speci men Type: BLOOD SPECIMENOrdering Facility: [facility] Address: [address] [address] Performed By: #### 5 7021-8 ####[facility] LABIA [id number] [address] [place] Hematocrit (Bld) [Volume fraction] 30.6 % Low 36.0-46.0 [facility] Comment on above: Order Comment: Speci men Type: BLOOD SPECIMENOrdering Facility: [facility] Address: [address] [place], [place] [address] Performed By: #### 5 7021-8 ####[facility] LABIA [id number] [address] [place] Hemoglobin (Bld) [Mass/Vol] 10.0 g/dL Low 11.5-15.5 [facility] Comment on above: Order Comment: Speci men Type: BLOOD SPECIMENOrdering Facility: [facility] Address: [address] Performed By: #### 5 7021-8 ####[facility] LABIA [id number] [place] [address] [place] Immature granulocytes (Bld) [#/Vol] 0.04 10*3/uL Normal <0.10 [facility] Comment on above: Order Comment: Speci men Type: BLOOD SPECIMENOrdering Facility: [facility] Address: [address] [place], [place] [address] Performed By: #### 5 7021-8 ####[facility] LABCLIA [id number] [address] [place] Immature granulocytes/100 WBC (Bld) 0.7 % Normal [facility] Comment on above: Order Comment: Speci men Type: BLOOD SPECIMENOrdering Facility: [facility] Address: [address] [place], [place] [address] Performed By: #### 5 7021-8 ####[facility] LABCLIA [id number] [place] [address] [place] Lymphocytes (Bld) [#/Vol] 1.32 10*3/uL Normal 1.00-4.00 [facility] Comment on above: Order Comment: Speci men Type: BLOOD SPECIMENOrdering Facility: [facility] Address: [address] [place], [place] [address] Performed By: #### 5 7021-8 ####[facility] LABIA [id number] [address] [place] Lymphocytes/100 WBC (Bld) 22.0 % Normal [facility] Comment on above: Order Comment: Speci men Type: BLOOD SPECIMENOrdering Facility: [facility] Address: [address] [place], [place] [address] Performed By: #### 5 7021-8 ####[facility] LABIA [id number] [place] [address] [place] MCH (RBC) [Entitic mass] 33.7 pg Normal 26.0-34.0 [facility] Comment on above: Order Comment: Speci men Type: BLOOD SPECIMENOrdering Facility: [facility] Address: [address] [place], [place] [address] Performed By: #### 5 7021-8 ####[facility] LABIA [id number] [place] [address] [place] MCHC (RBC) [Mass/Vol] 32.7 g/dL Normal 30.5-36.0 [facility] Comment on above: Order Comment: Speci men Type: BLOOD SPECIMENOrdering Facility: [facility] Address: [address] [place], [place] [address] Performed By: #### 5 7021-8 ####[facility] LABCLIA [id number] [place] [address] [place] MCV (RBC) [Entitic vol] 103.0 fL High 80.0-100.0 C [facility] Comment on above: Order Comment: Speci men Type: BLOOD SPECIMENOrdering Facility: [facility] Address: [address] [place], [place] [address] Performed By: #### 5 7021-8 ####[facility] LABCLIA [id number] [place] [address] [place] Monocytes (Bld) [#/Vol] 0.45 10*3/uL Normal <0.87 [facility] Comment on above: Order Comment: Speci men Type: BLOOD SPECIMENOrdering Facility: [facility] Address: [address] [place], [place] [address] Performed By: #### 5 7021-8 ####[facility] LABCLIA [id number] [place] [address] [place] Monocytes/100 WBC (Bld) 7.5 % Normal C [facility] Comment on above: Order Comment: Speci men Type: BLOOD SPECIMENOrdering Facility: [facility] Address: [address] [place], [place] [address] Performed By: #### 5 7021-8 ####[facility] LABCLIA [id number] [place] [address] [place] Neutrophils (Bld) [#/Vol] 4.18 10*3/uL Normal 1.45-7.50 [facility] Comment on above: Order Comment: Speci men Type: BLOOD SPECIMENOrdering Facility: [facility] Address: [address] Performed By: #### 5 7021-8 ####[facility] LABCLIA [id number] [address] Neutrophils/100 WBC (Bld) 69.5 % Normal [facility] Comment on above: Order Comment: Speci men Type: BLOOD SPECIMENOrdering Facility: [facility] Address: [address] Performed By: #### 5 7021-8 ####[facility] LABCLIA [id number] [place] [address] [place] Nucleated RBC (Bld) [#/Vol] 10*3/uL Normal <0.01 [facility] Comment on above: Order Comment: Speci men Type: BLOOD SPECIMENOrdering Facility: [facility] Address: [address] Performed By: #### 5 7021-8 ####[facility] LABIA [id number] [place] [address] [place] Nucleated RBC/100 WBC (Bld) [Ratio] 0.0 /100 WBC Normal [facility] Comment on above: Order Comment: Speci men Type: BLOOD SPECIMENOrdering Facility: [facility] Address: [address] [place], [place] [address] Performed By: #### 5 7021-8 ####[facility] LABCLIA [id number] [place] [address] [place] Platelet mean volume (Bld) [Entitic vol] 10.2 fL Normal 9.0-12.7 [facility] Comment on above: Order Comment: Speci men Type: BLOOD SPECIMENOrdering Facility: [facility] Address: [address] Performed By: #### 5 7021-8 ####[facility] LABCLIA [id number] [place] [address] [place] Platelets (Bld) [#/Vol] 205 10*3/uL Normal 150-400 [facility] Comment on above: Order Comment: Speci men Type: BLOOD SPECIMENOrdering Facility: [facility] Address: [address] [place] [address] Performed By: #### 5 7021-8 ####[facility] LABIA [id number] [place] [address] [place] RBC (Bld) [#/Vol] 2.97 10*6/uL Low 3.90-5.20 [facility] Comment on above: Order Comment: Speci men Type: BLOOD SPECIMENOrdering Facility: [facility] Address: [address] [place] [address] Performed By: #### 5 7021-8 ####[facility] LABIA [id number] [place] [address] [place] WBC (Bld) [#/Vol] 6.01 10*3/uL Normal 3.70-11.00 [facility] Comment on above: Order Comment: Speci men Type: BLOOD SPECIMENOrdering Facility: [facility] Address: [address] [place] [address] Performed By: #### 5 7021-8 ####[facility] [id number] [place] [address] [place] CNCOon 12-23-2022 CNCO Letter Text Normal [facility] CNOVon 12-23-2022 CNOV Office Visit (LOORRM ) -- KIKI MOORE ([id number]) 1945 F Date Time Provider Department 12/23/22 9:00 AM JUDIT JARRELL LOORRLiz During your visit today, we recorded [...] . Surgery Details Date and Location: At [facility] on 01[facility]23. Implants: Aida Robotic: Yes [...] Normal: No (more content not included)... Normal [facility] HISTORY PHYSICALon 3 HISTORY PHYSICAL HNO ID: [id number] Author: Rico Florian APRN.SKEIN WINDER Service: ? Author Type: Nurse Practitioner Type: [...] Obesity Snoring Back Pain Ra (Rheumatoid Arthritis) ([facility]) Arthritis of Left Hip Spondylolisthesis of Lumbar [...] Back pain Bursitis DVT of popliteal vein ([facility]) Glaucoma Hypertension OA (osteoarthritis) Obesity RA (rheumatoid arthritis) ([facility]) Rotator cuff syndrome Snoring Spinal stenosis, lumbar Stroke ([facility]) PAST SURGICAL HISTORY Procedure Laterality Date [...] residual deficit in 2016 No history of TIA's,[facility] HOME [employer]OFESSIONAL tumor, impaired sensorium, hemiplegia, paraplegia or quadraplegia. [...] rest lance (more content not included)... Normal [facility] HbA1c (Bld)on 12-23-2022 Average glucose Estimated from glycated hemoglobin (Bld) [Mass/Vol] 114 mg/dL Normal [facility] Comment on above: Order Comment: Speci men Type: BLOOD SPECIMENOrdering Facility: [facility] Address: [address] [address] Result Comment: eAG: (Estimated average glucose) is a calculated value from HgbA1c and is education courses sales representative of the average blood glucose level in the last 2-3 month period. Performed By: #### 5 5454-3 ####[facility] LABCLIA [id number] [address] OF [facility] HbA1c (Bld) [Mass fraction] 5.6 % Normal 4.3-5.6 [facility] Comment on above: Order Comment: Tamiko marshall Type: BLOOD SPECIMENOrdering Facility: [facility] Address: [address] [place] [address] Result Comment: [place] Diabetes Association guidelines indicate that patients with HgbA1c in the range 5.7-6.4% are at increased risk for development of diabetes, and intervention by lifestyle modification may be beneficial. HgbA1c greater or equal to 6.5% is considered diagnostic of diabetes. Performed By: #### 5 5454-3 ####[facility] LABCLIA [id number] [address] [place] OF [facility] TYPE AND SCREEN,30 DAYon ABO A Normal [facility] Comment on above: Order Comment: Natii rolando Type: BLOOD SPECIMENOrdering Facility: [facility] Address: [address] [place] [address] Performed By: #### T SCR30 ####[facility] BLOOD BANKCLIA [id number] [address] OF [facility] HISTORICAL AB SCR STATUS Positive Abnormal [facility] Comment on above: Order Comment: Natii men Type: BLOOD SPECIMENOrdering Facility: [facility] Address: [address] [place] [address] Performed By: #### T SCR30 ####[facility] BLOOD BANKIA [id number] [place] [address] [place] Rh Nom (Bld) Positive Normal [facility] Comment on above: Order Comment: Speci men Type: BLOOD SPECIMENOrdering Facility: [facility] Address: [address] Performed By: #### T SCR30 ####[facility] BLOOD [facility] [id number] [address] [place] Urinalysis complete panel (U )on 12-23-2022 Bilirubin Ql (U) Negative Normal Negative [facility] Comment on above: Order Comment: Speci men Type: URINE SPECIMENOrdering Facility: [facility] Address: [address] [address] Performed By: #### 2 4356-8 ####[facility] LABIA [id number] [address] [place] Clarity (Unsp spec) Clear Normal Clear [facility] Comment on above: Order Comment: Speci men Type: URINE SPECIMENOrdering Facility: [facility] Address: [address] Performed By: #### 2 4356-8 ####[facility] LABIA [id number] [address] [place] [facility] Color (U) Light Yellow Normal Yellow [facility] Comment on above: Order Comment: Speci men Type: URINE SPECIMENOrdering Facility: [facility] Address: [address] Performed By: #### 2 4356-8 ####[facility] LABCLIA [id number] [place] [address] [place] Glucose Test strip (U) [Mass/Vol] Negative Normal Trace, Negative [facility] Comment on above: Order Comment: Speci men Type: URINE SPECIMENOrdering Facility: [facility] Address: [address] [address] Performed By: #### 2 4356-8 ####[facility] LABCLIA [id number] [place] [address] [place] Hemoglobin Ql (U) Negative Normal Negative, Trace [facility] Comment on above: Order Comment: Speci men Type: URINE SPECIMENOrdering Facility: [facility] Address: [address] [address] Performed By: #### 2 4356-8 ####[facility] LABCLIA [id number] [place] [address] [place] Hyaline casts (Urine sed) [#/Area] 1-3 /LPF Abnormal 0 /LPF [facility] Comment on above: Order Comment: Speci men Type: URINE SPECIMENOrdering Facility: [facility] Address: [address] [place] [address] Performed By: #### 2 4356-8 ####[facility] LABCLIA [id number] [place] [address] [place] Ketones Ql (U) Negative Normal Trace, Negative [facility] Comment on above: Order Comment: Speci men Type: URINE SPECIMENOrdering Facility: [facility] Address: [address] [place], [place] [address] Performed By: #### 2 4356-8 ####[facility] LABCLIA [id number] [place] [address] [place] Leukocyte esterase Test strip Ql (U) 25 Jailyn/uL Normal Negative, 25 Jailyn/uL [facility] Comment on above: Order Comment: Speci men Type: URINE SPECIMENOrdering Facility: [facility] Address: [address] [place] [address] Performed By: #### 2 4356-8 ####[facility] LABCLIA [id number] [place] [address] [place] Nitrite Ql (U) Negative Normal Negative [facility] Comment on above: Order Comment: Speci men Type: URINE SPECIMENOrdering Facility: [facility] Address: [address] [place] [address] Performed By: #### 2 4356-8 ####[facility] LABIA [id number] [place] [address] [place] pH (U) 6.0 [pH] Normal 5.0-8.0 [facility] Comment on above: Order Comment: Speci men Type: URINE SPECIMENOrdering Facility: [facility] Address: [address] [place] [address] Performed By: #### 2 4356-8 ####[facility] LABIA [id number] [address] [facility] Protein (U) [Mass/Vol] Negative Normal Trace , Negative [facility] Comment on above: Order Comment: Speci men Type: URINE SPECIMENOrdering Facility: [facility] Address: [address] [place] [address] Performed By: #### 2 4356-8 ####[facility] LABIA [id number] [place] [address] [place] RBC LM.HPF (Urine sed) [#/Area] 0-3 /HPF Normal 0-3 /HPF [facility] Comment on above: Order Comment: Speci men Type: URINE SPECIMENOrdering Facility: [facility] Address: [address] [place] [address] Performed By: #### 2 4356-8 ####[facility] LABIA [id number] [place] [address] [place] Specific gravity (U) [Rel density] 1.010 Normal 1.005-1.03 0 [facility] Comment on above: Order Comment: Speci men Type: URINE SPECIMENOrdering Facility: [facility] Address: [address] [address] Performed By: #### 2 4356-8 ####[facility] LABIA [id number] [place] [address] [place] Urobilinogen Ql (U) Negative Normal Negative [facility] Comment on above: Order Comment: Speci men Type: URINE SPECIMENOrdering Facility: [facility] Address: [address] [place] [address] Performed By: #### 2 4356-8 ####[facility] LABIA [id number] [place] [address] [place] WBC LM.HPF (Urine sed) [#/Area] 0-5 /HPF Normal 0-5 /HPF [facility] Comment on above: Order Comment: Speci men Type: URINE SPECIMENOrdering Facility: [facility] Address: [address] [place] [address] Performed By: #### 2 4356-8 ####[facility] LABIA [id number] [place] [address] [place] PTH [place] 11-23-2022 Parathyrin.intact [Mass/Vol] 191 pg/mL High 15-65 [facility] Comment on above: Result Comment: Perf ormed at: [facility] [address] [id number] PhD Be Serra Performed By: #### 2 353784, 9717061, 32884208, 44314466, 1887374 #### [facility] [address] [place] [address] Auto Diffon 11-21-2022 Basophils/100 WBC (Bld) 0.5 % Normal 0.0-2.0 [facility] Comment on above: Order Comment: Order Added by Discern Expert. Performed By: #### 2 143326, 0616965, 96670328, 33192141, 9525838 #### [facility] [address] [place] [address] Basophils/Leukocytes Auto (Bld) [Pure # fraction] 0.0 E9/L Normal 0.0-0.2 [facility] Comment on above: Order Comment: Order Added by Discern Expert. Performed By: #### 2 732727, 1636394, 21774471, 67306764, 0977174 #### [facility] [address] [place] [address] Eosinophils/100 WBC (Bld) 0.2 % Normal 0.0-8.0 [facility] Comment on above: Order Comment: Order Added by Discern Expert. Performed By: #### 2 121046, 2274629, 28597373, 52310067, 5850345 #### [facility] [address] [place] [address] Eosinophils/Leukocytes Auto (Bld) [Pure # fraction] 0.0 E9/L Normal 0.0-0.5 [facility] Comment on above: Order Comment: Order Added by Discern Expert. Performed By: #### 2 444011, 8762367, 93015026, 56901432, 3390149 #### [facility] [address] [place] [address] Lymphocytes/100 WBC (Bld) 17.2 % Normal 14.0-50.0 [facility] Comment on above: Order Comment: Order Added by Discern Expert. Performed By: #### 2 682125, 9036558, 84457287, 24466772, 3250894 #### [facility] [address] [place] [address] Lymphocytes/Leukocytes Auto (Bld) [Pure # fraction] 0.9 E9/L Low 1.0-4.0 [facility] Comment on above: Order Comment: Order Added by Discern Expert. Performed By: #### 2 176929, 6644379, 45357807, 29848950, 8942413 #### [facility] [address] [place] [address] Monocytes/100 WBC (Bld) 7.1 % Normal 4.0-14.0 [facility] Comment on above: Order Comment: Order Added by Discern Expert. Performed By: #### 2 513871, 5271001, 41622901, 47529722, 0693432 #### [facility] [address] [place] [address] Monocytes/Leukocytes Auto (Bld) [Pure # fraction] 0.4 E9/L Normal 0.2-1.0 [facility] Comment on above: Order Comment: Order Added by Discern Expert. Performed By: #### 2 481691, 3723021, 85473203, 44696604, 8989832 #### [facility] [address] [place] [address] Neutrophils/100 WBC (Bld) 75.0 % Normal 36.0-75.0 [facility] Comment on above: Order Comment: Order Added by Discern Expert. Performed By: #### 2 239984, 1058164, 48328730, 25995063, 2656080 #### [facility] [address] [place] [address] Neutrophils/Leukocytes Auto (Bld) [Pure # fraction] 3.9 E9/L Normal 2.0-7.5 [facility] Comment on above: Order Comment: Order Added by Discern Expert. Performed By: #### 2 964825, 4599861, 41153851, 57024656, 4324986 #### [facility] [address] [place] [address] CBC w/ Auto Diffon 3 Erythrocyte distribution width (RBC) [Ratio] 14.4 % High 10.9-14.2 [facility] Comment on above: Performed By: #### 2 223558, 7729667, 58733395, 28104995, 6120392 #### [facility] [address] [place] [address] Hematocrit (Bld) [Volume fraction] 29.8 % Low 34.0-46.0 [facility] Comment on above: Performed By: #### 2 901330, 6768873, 10618740, 95231668, 5253956 #### [facility] [address] [place] [address] Hemoglobin (Bld) [Mass/Vol] 9.9 g/dL Low 12.0-16.0 [facility] Comment on above: Performed By: #### 2 984307, 7363633, 09224794, 32724698, 4247612 #### [facility] [address] [place] [address] MCH (RBC) [Entitic mass] 33.2 pg Normal 27.0-34.0 [facility] Comment on above: Performed By: #### 2 763244, 8635920, 26367247, 44434719, 4557908 #### [facility] [address] [place] [address] MCHC (RBC) [Mass/Vol] 33.2 g/dL Normal 31.4-36.0 [facility] Comment on above: Performed By: #### 2 440675, 5954051, 47228639, 25288058, 8512613 #### [facility] [address] [place] [address] MCV (RBC) [Entitic vol] 100.1 fL High 80.0-100.0 [facility] Comment on above: Performed By: #### 2 512390, 9015680, 48015947, 78119742, 0546036 #### [facility] [address] [place] [address] Platelet mean volume (Bld) [Entitic vol] 7.6 fL Normal 6.4-10.8 [facility] Comment on above: Performed By: #### 2 573850, 4362920, 99591449, 83024558, 1670010 #### [facility] [address] [place] [address] Platelets (Bld) [#/Vol] 227.0 E9/L Normal 150. 0-500. 0 [facility] Comment on above: Performed By: #### 2 619018, 1570668, 67985811, 62405417, 9177305 #### [facility] [address] [place] [address] RBC (Bld) [#/Vol] 3.0 E12/L Low 4.3-5.9 [facility] Comment on above: Performed By: #### 2 051238, 4818749, 08993464, 50085450, 7084715 #### [facility] [address] [place] [address] WBC corrected for nucl RBC Auto (Bld) [#/Vol] 5.2 E9/L Normal 4.0-11.0 [facility] Comment on above: Performed By: #### 2 176026, 8015427, 83274376, 47055755, 3474376 #### [facility] [address] [place] [address] CHEMISTRYOrdered By: SYSTEM SYSTEM on 11-21-2022 25-hydroxyvitamin [...] mg/dL [facility] Remisol GFR/1.73 sq M.predicted among non-blacks MDRD (S/P/Bld) [Vol rate/Area] 47 mL/min/1.73 m2 Low >=59mL/min /1.73 m2 FT Chem S Glucose [Mass/Vol] 110 mg/dL Normal 55 - 199 mg/dL [facility] Remisol Phosphate [Mass/Vol] 3.7 mg/dL Normal 1.9 - 4 .6 mg/dL [facility] Remisol Potassium [Moles/Vol] 5.3 mmol/L Normal 3.5 - 5.3 mmol/L [facility] Remisol Sodium [Moles/Vol] 132 mmol/L Low 135 - 145 mmol/L [facility] Remisol Urea nitrogen [Mass/Vol] 24 mg/dL High 5 - 21 mg/dL [facility] Remisol Urea nitrogen/Creatinine [Mass ratio] 20 mg/mg Normal 10 - 20 [facility] Remisol Consent for Treatmenton Consent for Treatment [id number]:127 Normal [facility] Hep Func Panelon 11-21-2022 Albumin [Mass/Vol] 4.0 g/dL Normal 3.3-5.0 [facility] Comment on above: Performed By: #### 2 304782, 1669228, 67383881, 17481744, 1319146 #### [facility] [address] [place] [address] Albumin/Globulin (S) [Mass conc ratio] 1.6 Normal 1.1-2.2 [facility] Comment on above: Performed By: #### 2 931717, 5530494, 94765528, 23519881, 8820951 #### [facility] [address] [place] [address] ALP [Catalytic activity/Vol] 106 Int._Unit/L High 21-98 [facility] Comment on above: Performed By: #### 2 421206, 3735595, 95519065, 76817748, 6486519 #### [facility] [address] [place] [address] ALT No additional P-5'-P [Catalytic activity/Vol] 23 Int._Unit/L Normal 6-46 [facility] Comment on above: Performed By: #### 2 729277, 4700830, 48615284, 92450755, 9192867 #### [facility] [address] [place] [address] AST [Catalytic activity/Vol] 33 Int._Unit/L Normal 5-43 [facility] Comment on above: Performed By: #### 2 389687, 4773645, 06191055, 13721565, 8158771 #### [facility] [address] [place] [address] Bilirubin [Mass/Vol] 0.6 mg/dL Normal 0.0-1.1 [facility] Comment on above: Performed By: #### 2 276424, 1986031, 26997471, 66790403, 7683493 #### [facility] [address] [place] [address] Bilirubin.direct [Mass/Vol] 0.2 mg/dL Normal 0.1-0.4 [facility] Comment on above: Performed By: #### 2 100860, 3460002, 15225412, 33648357, 8653062 #### [facility] [address] [place] [address] Bilirubin.indirect [Mass or moles/Vol] 0.4 mg/dL Normal 0.1-0.9 [facility] Comment on above: Performed By: #### 2 913365, 4399258, 47260281, 83114127, 9105236 #### [facility] [address] [place] [address] Globulin (S) [Mass/Vol] 2.5 g/dL Normal 1.4-4.0 [facility] Comment on above: Performed By: #### 2 593015, 8943082, 85113281, 41619464, 9752846 #### [facility] [address] [place] [address] Protein [Mass/Vol] 6.5 g/dL Normal 6.0-7.8 [facility] Comment on above: Performed By: #### 2 049744, 0823893, 30844533, 89233755, 2315526 #### [facility] [address] [place] [address] Physician Orderon 11-21-2022 Physician Order [id number]#[id number]:127 Normal [facility] Renal Panelon 11-21-2022 Albumin [Mass/Vol] 4.0 g/dL Normal 3.3-5.0 [facility] Comment on above: Performed By: #### 1 4643467, 809485238, 88070690 #### [facility] [address] [place] [address] Anion gap [Moles/Vol] 13 mmol/L Normal 6-16 [facility] Comment on above: Performed By: #### 1 2425004, 189469256, 41664390 #### [facility] [address] [place] [address] Calcium [Mass/Vol] 9.3 mg/dL Normal 8.9-11.1 [facility] Comment on above: Performed By: #### 1 5797444, 707647302, 21341721 #### [facility] [address] [place] [address] Chloride [Moles/Vol] 100 mmol/L Low 101-111 [facility] Comment on above: Performed By: #### 1 8689206, 173716177, 53965692 #### [facility] [address] [place] [address] CO2 [Moles/Vol] 24 mmol/L Normal 21-31 [facility] Comment on above: Performed By: #### 1 4862568, 723897877, 77229348 #### [facility] [address] [place] [address] Creatinine [Mass/Vol] 1.2 mg/dL Normal 0.5-1.3 [facility] Comment on above: Performed By: #### 1 0196666, 873739675, 91091181 #### [facility] [address] [place] [address] Glucose [Mass/Vol] 110 mg/dL Normal 55-199 [facility] Comment on above: Result Comment: If t his glucose result represents a fasting glucose, interpretation should refer to the following reference range: 55-99 mg/dL Performed By: #### 1 8749118, 781801053, 38708828 #### [facility] [address] [place] [address] Phosphate [Mass/Vol] 3.7 mg/dL Normal 1.9-4.6 [facility] Comment on above: Performed By: #### 1 7249589, 649123101, 76919687 #### [facility] [address] [place] [address] Potassium [Moles/Vol] 5.3 mmol/L Normal 3.5-5.3 [facility] Comment on above: Performed By: #### 1 3095591, 811556976, 96278100 #### [facility] [address] [place] [address] Sodium [Moles/Vol] 132 mmol/L Low 135-145 [facility] Comment on above: Performed By: #### 1 1527623, 325153290, 34489082 #### [facility] [address] [place] [address] Urea nitrogen [Mass/Vol] 24 mg/dL High 5-21 [facility] Comment on above: Performed By: #### 1 2006982, 116509866, 15629531 #### [facility] [address] [place] [address] Urea nitrogen/Creatinine [Mass ratio] 20 No Units Normal 10-20 [facility] Comment on above: Performed By: #### 1 2515987, 910569883, 87583527 #### [facility] [address] [place] [address] Sed Rate Automatedon 11-21- 023 Sed Rate Automated 9 mm/hr Normal 0-34 [facility] Comment on above: Performed By: #### 2 180346, 2606401, 21557566, 15046661, 1821904 #### [facility] [address] [place] [address] Vitamin D 25 Hydroxyon 11-21 25-hydroxyvitamin D3 [Mass/Vol] 25.2 ng/mL Low 30.0-100.0 [facility] Comment on above: Result Comment: Vit khan D deficiency has been defined as a level of serum 25-OH vitamin D less than 20 ng/mL (1,2) by the [place] [employer] and an Endocrine Society practice guideline. The Endocrine Society further defined vitamin D insufficiency as a level between 21 and 29 ng/mL (2). 1. IOM ([place] of [employer]). 2010. Dietary reference intakes for calcium and D. [place]: The National Academies Press. 2. Jennifer MF, Kaitlin SANDRA, Casey LINARES, et al. Evaluation, treatment, and prevention of vitamin D deficiency: an Endocrine Society clinical practice guideline. JCEM. 2010; 96 (7):1911-30. Performed By: #### 1 4266961, 451311185, 27151517 #### [facility] [address] [place] [address] eGFRon 11-21-2022 GFR/1.73 sq M.predicted among non-blacks MDRD (S/P/Bld) [Vol rate/Area] 47 mL/min/1.73 m2 Low >=59 [facility] Comment on above: Order Comment: Order added by Discern Expert. Result Comment: [employer] Grade Teacher lillian kidney disease could be indicated at eGFR's of less than 60 mL/min/1.73m2. Kidney failure is indicated at less than 15 mL/min/1.73m2. Performed By: #### 1 0598666, 134491641, 29314943 #### [facility] [address] [place] [address] [place] Mamm Screen w/CAD if perf and [...] very important to your health. The current [employer] and National Comprehensive Cancer [...] Jose Pierre M.D. Transcribed by: CARLINE Technologist: [facility] Assessment: BI-RADS Category 2-Benign finding Recommendation: Normal interval follow-up Normal [facility] Consent for Treatmenton 10-21 Consent for Treatment [id number]:127 Normal [facility] Office Visiton 11-09-2022 Follow-up visit [id number] Kevin Moore 1945 F Date Provider Department Center 11/09/2022 Malina-RICCO [facility] No family history on file Level of Service:06824 [place] OFFICE/OUTPATIENT ESTABLISHED MOD MDM 30-39 MIN Reason for Visit and Comments: Follow-up [123937] - Yearly follow up Normal [facility] - Microbiology an d Antimicrobial susceptibilityon 10-27-2022 S. aureus and MRSA panel JIMBO+probe (Nose) Negative Negative [facility] CNOVon 10-26-2022 CNOV Office Visit (LOORRM ) -- KIKI MOORE ([id number]) 1945 F Date Time Provider Department 10/26/22 [...] - Fully Assessed Reason for Visit: New [770258] Primary Visit Diagnosis:MRSA (methicillin resistant Staphylococcus aureus) [A49.02] Other Visit Diagnoses:Primary osteoarthritis of left knee [M17.12] Pre-op testing [Z01.818] Status post right knee replacement [Z96.651] History of right hip replacement [Z96.641] Status post bilateral knee replacements [Z96.653] Rheumatoid arthritis with negative rheumatoid factor, involving unspecified site (HCC) [M06.00] Order(s):XR KNEE GENERAL 4V AP BOTH/PA BOTH/LAT/MERC BILATERAL [9768117] Order #: [id number] FUTURE STAPH AUREUS PCR [SQSAPCR] Order #: [id number] FUTURE STAPH AUREUS PCR [SQSAPCR] Order #: [id number]. #:[id number] URINALYSIS, WITH MICROSCOPIC [SQUAWMIC] Order #: [id number] FUTURE CBC + DIFF [SQCBCDIF] Order #: [id number] FUTURE BASIC METABOLIC PNL [SQBMP] Order #: [id number] FUTURE URINE CULTURE [SQURCUL] Order #: [id number] FUTURE TYPE AND SCREEN,30 DAY [EJUNFO92] Order #: [id number] FUTURE HGB A1C [FNKMA6A] Order #: [id number] FUTURE CONSULT TO(TCI)PRE-OP CLEAR [9820428] Order #: [id number]: 1 CONSULT TO PHYSICAL THERAPY [9060] Order #: [id number]: 1 FUTURE PATIENT PLACED ON ZOË TKA CARE PATH [4475346] Order #: [id number]: 1 SURGICAL REQUEST - ELECTIVE (12/2019) [0781087] Order #: [id number]: 1 Prescriptions as of 10/27/2022 - clindamycin [...] by SHAN BOX II on 10/27/22 Normal [facility] STAPH AUREUS PCRon S. aureus and MRSA panel JIMBO+probe (Nose) Normal Negative [facility] Comment on above: Order Comment: Speci men Type: SWAB OF INTERNAL NOSEOrdering Facility: [facility] Address: [address] [place] [address] Result Comment: Nega tive for Staphylococcus aureus by PCR. Negative for MRSA by PCR Performed By: #### S APCR ####[facility] LABCLIA [id number] [place] [address] [place] XR KNEE 4V AP/PA/LAT/MERCH B ILon 10-26-2022 XR KNEE 4V AP/PA/LAT/MERCH EDDIE * * *Final Report* * * DATE OF EXAM: Oct 26 2022 1:30PM LZX 5618 - XR KNEE 4V AP/PA/LAT/MERCH EDDIE [...] as described. Severe left lateral compartment osteoarthritis. 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: [employer] Transcribe Date/Time: Oct 26 2022 1:43P Dictated by : SHAN ANDRADE MD This examination was interpreted and the report reviewed and electronically signed by: SHAN ANDRADE MD on Oct 26 2022 1:45PM EST [id number] Normal [facility] XR KNEE GENERAL 4V AP BOTH/P A BOTH/LAT/MERC BILATERALon 10-26-2022 [facility] Insurance Correspondence Off iceon 10-11-2022 Insurance Correspondence Office [id number]:127 Normal [facility] Auto Diffon 07-25-2022 Basophils/100 WBC (Bld) 0.8 % Normal 0.0-2.0 [facility] Comment on above: Order Comment: Order Added by Discern Expert. Performed By: #### 2 829706, 8047688, 64172579, 80852714, 6029660, 9273454 #### [facility] [address] [place] [address] Basophils/Leukocytes Auto (Bld) [Pure # fraction] 0.0 E9/L Normal 0.0-0.2 [facility] Comment on above: Order Comment: Order Added by Discern Expert. Performed By: #### 2 959720, 9983289, 82793005, 60149130, 5012347, 2883589 #### [facility] [address] [place] [address] Eosinophils/100 WBC (Bld) 1.4 % Normal 0.0-8.0 [facility] Comment on above: Order Comment: Order Added by Discern Expert. Performed By: #### 2 418137, 9238709, 54314850, 30452485, 9007744, 6050078 #### [facility] [address] [place] [address] Eosinophils/Leukocytes Auto (Bld) [Pure # fraction] 0.1 E9/L Normal 0.0-0.5 [facility] Comment on above: Order Comment: Order Added by Discern Expert. Performed By: #### 2 271885, 7701966, 43755577, 30558447, 5203603, 0216738 #### [facility] [address] [place] [address] Lymphocytes/100 WBC (Bld) 33.5 % Normal 14.0-50.0 [facility] Comment on above: Order Comment: Order Added by Joaquim Expert. Performed By: #### 2 393538, 4298926, 38959371, 18541266, 1514405, 5820634 #### [facility] [address] [place] [address] Lymphocytes/Leukocytes Auto (Bld) [Pure # fraction] 1.9 E9/L Normal 1.0-4.0 [facility] Comment on above: Order Comment: Order Added by Joaquim Expert. Performed By: #### 2 805252, 1598021, 43731090, 50995651, 4707439, 3163100 #### [facility] [address] [place] [address] Monocytes/100 WBC (Bld) 13.9 % Normal 4.0-14.0 [facility] Comment on above: Order Comment: Order Added by Joaquim Expert. Performed By: #### 2 641517, 2594155, 46477898, 14218480, 1412357, 2620062 #### [facility] [address] [place] [address] Monocytes/Leukocytes Auto (Bld) [Pure # fraction] 0.8 E9/L Normal 0.2-1.0 [facility] Comment on above: Order Comment: Order Added by Joaquim Expert. Performed By: #### 2 187772, 9633632, 32903705, 78035208, 4710039, 3138344 #### [facility] [address] [place] [address] Neutrophils/100 WBC (Bld) 50.4 % Normal 36.0-75.0 [facility] Comment on above: Order Comment: Order Added by Discern Expert. Performed By: #### 2 080105, 6894089, 45845659, 72308497, 4160054, 7520623 #### [facility] [address] [place] [address] Neutrophils/Leukocytes Auto (Bld) [Pure # fraction] 2.9 E9/L Normal 2.0-7.5 [facility] Comment on above: Order Comment: Order Added by Discern Expert. Performed By: #### 2 713985, 0170973, [id number], 02952296, 0567175, 6830230 #### [facility] [address] [place] [address] CBC w/ Auto Diffon 3 Erythrocyte distribution width (RBC) [Ratio] 15.4 % High 10.9-14.2 [facility] Comment on above: Performed By: #### 2 118235, 5123823, 11882697, 28598237, 7026405, 7343474 #### [facility] [address] [place] [address] Hematocrit (Bld) [Volume fraction] 32.9 % Low 34.0-46.0 [facility] Comment on above: Performed By: #### 2 878617, 6764562, 89715163, 21067912, 4684843, 2357460 #### [facility] [address] [place] [address] Hemoglobin (Bld) [Mass/Vol] 10.6 g/dL Low 12.0-16.0 [facility] Comment on above: Performed By: #### 2 778619, 1615134, 60809247, 42069363, 5249472, 6400342 #### [facility] [address] [place] [address] MCH (RBC) [Entitic mass] 32.5 pg Normal 27.0-34.0 [facility] Comment on above: Performed By: #### 2 012139, 8682269, 37760478, 88961004, 1074997, 0699540 #### [facility] [address] [place] [address] MCHC (RBC) [Mass/Vol] 32.3 g/dL Normal 31.4-36.0 [facility] Comment on above: Performed By: #### 2 285513, 4058949, 06623985, 47207291, 9331329, 5600102 #### [facility] [address] [place], [place] [address] MCV (RBC) [Entitic vol] 100.7 fL High 80.0-100.0 [facility] Comment on above: Performed By: #### 2 262981, 7579090, 63915233, 28202704, 8273584, 7748185 #### [facility] [address] [id number] Platelet mean volume (Bld) [Entitic vol] 7.9 fL Normal 6.4-10.8 [facility] Comment on above: Performed By: #### 2 346473, 7101949, 99772768, 50343497, 3931665, 5656492 #### [facility] [address] [place], [place] [address] Platelets (Bld) [#/Vol] 224.0 E9/L Normal 150. 0-500. 0 [facility] Comment on above: Performed By: #### 2 461105, 7969667, 90246598, 08023882, 3372890, 7982993 #### [facility] [address] [place] [address] RBC (Bld) [#/Vol] 3.3 E12/L Low 4.3-5.9 [facility] Comment on above: Performed By: #### 2 252755, 4563611, 69411691, 39359776, 1886684, 2361395 #### [facility] [address] [place] [address] WBC corrected for nucl RBC Auto (Bld) [#/Vol] 5.7 E9/L Normal 4.0-11.0 [facility] Comment on above: Performed By: #### 2 294530, 8083277, 74890255, 08682512, 1586798, 2986604 #### [facility] [address] [place] [address] CHEMISTRYOrdered By: SYSTEM SYSTEM on 07-25-2022 Albumin [...] 07-25-2022 Creatinine [Mass/Vol] 1.1 mg/dL Normal 0.5-1.3 [facility] Comment on above: Performed By: #### 2 177159, 9190091, 09896672, 80471343, 5166730 #### [facility] [address] [place] [address] HEMATOLOGYOrdered By: SYSTEM SYSTEM on 07-25-2022 Basophils/100 [...] 15.4 % High 10.9 - 14.2 % [facility] Hematocrit (Bld) [Volume fraction] 32.9 % Low 34.0 - 46.0 % [facility] Hemoglobin (Bld) [Mass/Vol] 10.6 g/dL Low 12.0 - 16.0 gm/dL [facility] MCH (RBC) [Entitic mass] 32.5 pg Normal 27.0 - 34.0 pg [facility] MCHC (RBC) [Mass/Vol] 32.3 g/dL Normal 31.4 - 36.0 gm/dL [facility] MCV (RBC) [Entitic vol] 100.7 fL High 80.0 - 100.0 fL [facility] Platelet mean volume (Bld) [Entitic vol] 7.9 fL Normal 6.4 - 10.8 fL [facility] Platelets (Bld) [#/Vol] 224.0 E9/L Normal 150. 0 - 500.0 E9/L [facility] RBC (Bld) [#/Vol] 3.3 E12/L Low 4.3 - 5.9 E12/L [facility] Sed Rate Automated 14 mm/h Normal 0 - 34 mm/hr [facility] WBC corrected for nucl RBC Auto (Bld) [#/Vol] 5.7 E9/L Normal 4.0 - 11.0 E9/L [facility] Hep Func Panelon 07-25-2022 Albumin [Mass/Vol] 4.1 g/dL Normal 3.3-5.0 [facility] Comment on above: Performed By: #### 2 047398, 2932546, 27775747, 65346575, 1958353 #### [facility] [address] [place] [address] Albumin/Globulin (S) [Mass conc ratio] 1.5 Normal 1.1-2.2 [facility] Comment on above: Performed By: #### 2 132665, 8775259, 74580869, 69823838, 6238437 #### [facility] [address] [place] [address] ALP [Catalytic activity/Vol] 150 Int._Unit/L High 21-98 [facility] Comment on above: Performed By: #### 2 045269, 0193579, 43560925, 25712458, 9570497 #### [facility] [address] [place] [address] ALT No additional P-5'-P [Catalytic activity/Vol] 23 Int._Unit/L Normal 6-46 [facility] Comment on above: Performed By: #### 2 601263, 2861050, 60843897, 61571641, 5137846 #### [facility] [address] [place] [address] AST [Catalytic activity/Vol] 31 Int._Unit/L Normal 5-43 [facility] Comment on above: Performed By: #### 2 858510, 4384386, 50079140, 97780113, 1336392 #### [facility] [address] [place] [address] Bilirubin [Mass/Vol] 0.7 mg/dL Normal 0.0-1.1 [facility] Comment on above: Performed By: #### 2 251355, 4151930, 99879137, 12368921, 0882405 #### [facility] [address] [place] [address] Bilirubin.direct [Mass/Vol] 0.1 mg/dL Normal 0.1-0.4 [facility] Comment on above: Performed By: #### 2 925040, 7179577, 77433324, 53893245, 2866740 #### [facility] [address] [place] [address] Bilirubin.indirect [Mass or moles/Vol] 0.6 mg/dL Normal 0.1-0.9 [facility] Comment on above: Performed By: #### 2 618485, 9801333, 03004923, 54734373, 4086755 #### [facility] [address] [place] [address] [place] [address] Globulin (S) [Mass/Vol] 2.8 g/dL Normal 1.4-4.0 [facility] Comment on above: Performed By: #### 2 270709, 7838056, 66412183, 79781710, 7693554 #### [facility] [address] [place] [address] Protein [Mass/Vol] 6.9 g/dL Normal 6.0-7.8 [facility] Comment on above: Performed By: #### 2 797608, 2402014, 83728031, 82914330, 3085017 #### [facility] [address] [place] [address] Sed Rate Automatedon 023 Sed Rate Automated 14 mm/hr Normal 0-34 [facility] Comment on above: Performed By: #### 2 440499, 7909879, 95145174, 94366635, 9548242 #### [facility] [address] [place] [address] eGFRon 07-25-2022 GFR/1.73 sq M.predicted among blacks MDRD (S/P/Bld) [Vol rate/Area] 59 mL/min/1.73 m2 Normal >=59 [facility] Comment on above: Order Comment: Order added by Discern Expert. Result Comment: eGFR is race adjusted. AA=. Performed By: #### 2 140599, 7476999, 26513135, 38387032, 3608011 #### [facility] [address] [place] [address] GFR/1.73 sq M.predicted among non-blacks MDRD (S/P/Bld) [Vol rate/Area] 48 mL/min/1.73 m2 Low >=59 [facility] Comment on above: Order Comment: Order added by Discern Expert. Result Comment: [employer] Grade Teacher lillian kidney disease could be indicated at eGFR's of less than 60 mL/min/1.73m2. Kidney failure is indicated at less than 15 mL/min/1.73m2. Performed By: #### 2 946366, 7809186, 93799463, 17993482, 9107577 #### [facility] [address] [id number] CHEMISTRYOrdered By: SYSTEM SYSTEM on 06-28-2022 25-hydroxyvitamin D3 [Mass/Vol] 23.8 ng/mL Low 30.0 - 100.0 ng/mL [facility] Albumin [Mass/Vol] 3.7 g/dL Normal 3.3 - 5.0 gm/dL [facility] ALP [Catalytic activity/Vol] 148 [iU]/d High 21 - 98 Int._Unit/ L [facility] Anion gap [Moles/Vol] 14 mmol/L Normal 6 - 16 mEq/L [facility] Calcium [Mass/Vol] 9.0 mg/dL Normal 8.9 [...] 54 mL/min/1.73 m2 Low >=59mL/min /1.73 m2 FT Chem S Glucose [Mass/Vol] 98 mg/dL Normal 55 - 199 mg/dL [facility] Magnesium [Mass/Vol] 1.6 mg/dL Normal 1.3 - 2 .4 mg/dL [facility] Phosphate [Mass/Vol] 4.0 mg/dL Normal 1.9 - 4 .6 mg/dL [facility] Potassium [Moles/Vol] 5.1 mmol/L Normal 3.5 - 5.3 mmol/L [facility] Sodium [Moles/Vol] 133 mmol/L Low 135 - 145 mmol/L [facility] Urea nitrogen [Mass/Vol] 19 mg/dL Normal 5 - 21 mg/dL [facility] Urea nitrogen/Creatinine [Mass ratio] 19 mg/mg Normal 10 - 20 [facility] CHEMISTRYOrdered By: Divine Schafer on 06-28-2022 Creatine (U) [Moles/Vol] 54.2 mg/dL Normal >=10.0mg/d L [facility] Creatinine (24H U) [Moles/Time] 880.8 mg/24hr Low 1000.0 - 2000.0 mg/24hr [facility] Chem S Hrs Amisha 24 h Invalid Interpretation Code [facility] Chem S Sodium (24H U) [Mass/Vol] 133 mmol/24 hr Normal 40 - 220 mmol/24 hr [facility] Chem S Sodium (U) [Moles/Vol] 82 mmol/L Normal >=10mmol/L [facility] - Specimen inform ationOrdered By: Yamileth Murray on 06-28-2022 Specimen volume Unsp time (U) 1625 mL Invalid Interpretation Code [facility] Testing Ordered By: Yamileth Murray on 06-28-2022 Hrs Amisha Ref Lab 24 h Invalid Interpretation Code [facility] Laboratory Testing Ordered By: Jenny Solorzano on 06-28-2022 Test Code 610075 Invalid Interpretation Code [facility] Test Name n-telo, urine Invalid Interpretation Code [facility] CHEMISTRYOrdered By: SYSTEM SYSTEM on 06-02-2022 Albumin [Mass/Vol] 4.1 g/dL Normal 3.3 - 5.0 gm/dL [facility] Albumin/Globulin [Mass ratio] 1.3 {ratio} Normal 1.1 - 2.2 [facility] Remiso ALP [Catalytic activity/Vol] 144 [iU]/d High 21 - 98 Int._Unit/ L [facility] Remisol ALT No additional P-5'-P [Catalytic activity/Vol] 28 [iU]/d Normal 6 - 46 Int._Unit/ L [facility] Remisol Anion gap [Moles/Vol] 13 mmol/L Normal 6 - 16 mEq/L [facility] Rem[facility] AST [Catalytic activity/Vol] 42 [iU]/d Normal 5 - 43 Int._Unit/ L [facility] Remisol Bilirubin [Mass/Vol] 0.8 mg/dL Normal 0.0 - 1 .1 mg/dL [facility] Calcium [Mass/Vol] 9.4 mg/dL Normal 8.9 - 11. 1 mg/dL [facility] Chloride [Moles/Vol] 100 mmol/L Low 101 - 1 11 mmol/L [facility] CO2 [Moles/Vol] 25 mmol/L Normal 21 - 31 mmol/L [facility] Creatinine [Mass/Vol] 1.0 mg/dL Normal 0.5 - 1.3 mg/dL [facility] GFR/1.73 sq M.predicted among blacks MDRD (S/P/Bld) [Vol rate/Area] mL/min/1.73 m2 Normal >=59mL/min /1.73 m2 [facility] Chem S GFR/1.73 sq M.predicted among non-blacks MDRD (S/P/Bld) [Vol rate/Area] 54 mL/min/1.73 m2 Low >=59mL/min /1.73 m2 [facility] Chem S Globulin (S) [Mass/Vol] 3.1 g/dL [...] ratio] 19 mg/mg Normal 10 - 20 [facility] CHEMISTRYOrdered By: SYSTEM SYSTEM on 05-18-2022 Anion gap [Moles/Vol] 10 mmol/L Normal 6 - 16 mEq/L [facility] Calcium [Mass/Vol] 8.6 mg/dL Low 8.9 - 11. 1 mg/dL [facility] Chloride [Moles/Vol] 102 mmol/L Normal 101 - 1 11 mmol/L [facility] Remisol CO2 [Moles/Vol] 21 mmol/L Normal 21 - 31 mmol/L [facility] Creatinine [Mass/Vol] 0.8 mg/dL Normal 0.5 - 1.3 mg/dL [facility] GFR/1.73 sq M.predicted among blacks MDRD (S/P/Bld) [Vol rate/Area] mL/min/1.73 m2 Normal >=59mL/min /1.73 m2 [facility] Chem S GFR/1.73 sq M.predicted among non-blacks MDRD (S/P/Bld) [Vol rate/Area] mL/min/1.73 m2 Normal >=59mL/min /1.73 m2 [facility] Chem S Glucose [Mass/Vol] 94 mg/dL Normal [...] Normal >=59mL/min /1.73 m2 [facility] Chem S Glucose [Mass/Vol] 98 mg/dL Normal 55 - 199 mg/dL [facility] Iron [Mass/Vol] 23 ug/dL Low 35 - 153 mcg/dL [facility] Iron binding capacity [Mass/Vol] 235 ug/dL Low 250 - 400 mcg/dL [facility] LDH [Catalytic activity/Vol] 202 [iU]/d Normal [...] E9/L Normal 150. 0 - 500.0 E9/L [facility] RBC (Bld) [#/Vol] 3.1 E12/L Low 4.3 - 5.9 E12/L [facility] Reticulocytes/100 RBC (Bld) 0.7 % Normal 0.5 - 1.5 % [facility] Comment on above: Result Comment: This Reticulocyte Count Has Been Corrected For Anemia WBC corrected for nucl RBC Auto (Bld) [#/Vol] 14.2 E9/L High 4.0 - 11.0 E9/L [facility] Laboratory - Microbiology an d Antimicrobial susceptibilityOrdered By: Dinorah Salgado on 05-17-2022 MRSA DNA JIMBO+probe Ql (Unsp spec) MRSA Negative. [facility] CHEMISTRYOrdered By: SYSTEM SYSTEM on 05-16-2022 [...] rate/Area] mL/min/1.73 m2 Normal >=59mL/min /1.73 m2 [facility] Chem S GFR/1.73 sq M.predicted among non-blacks MDRD (S/P/Bld) [Vol rate/Area] 54 mL/min/1.73 m2 Low >=59mL/min /1.73 m2 [facility] Chem S Glucose [Mass/Vol] 112 mg/dL Normal 55 - 199 mg/dL [facility] Potassium [Moles/Vol] 4.1 mmol/L Normal 3.5 - 5.3 mmol/L [facility] Sodium [Moles/Vol] 125 mmol/L Low 135 [...] 17.7 E9/L High 4.0 - 11.0 E9/L [facility] Comment on above: Result Comment: Slid [...] Nom (U) 200 cfu/ml Mixed skin contaminants [facility] Reference Laboratory Testing Ordered By: Rick DomainUsebrenda on 05-15-2022 Cortisol [Mass/Vol] 35.5 ug/dL Invalid Interpretation Code [facility] Comment on above: Result Comment: Harvinder isol AM 6.2 - 19.4 Cortisol PM 2.3 - 11.9 Performed at: [facility] [address] [id number] PhD Be Serra URINALYSISOrdered By: Lucy Coon [...] PM) Normal Negative [facility] UA Auto SS [place].plasma/[place]. RBC (Bld) [Mass ratio] 0-3 /HPF Normal [...] PM) Invalid Interpretation Code 1.005 - 1.030 [facility] UA Auto SS UA Spec Desc Random Urine (05/15/22 5:10 PM) Normal [facility] UA Auto SS Urobilinogen Qn (U) [id number] {Lily'U}/dL Normal 0.0 - 1.0 EU/dL [facility] UA Auto SS WBC Auto Ql (U) 2+ *ABN* (05/15/22 5:10 PM) Invalid Interpretation Code Negative [facility] UA Auto SS WBC LM.HPF (Urine sed) [#/Area] 6-15 /HPF Invalid Interpretation Code 0-5/HPF [facility] UA Auto SS MICRO OTHER TESTSOrdered By: Zafar Cheung on 05-14-2022 Rapid COV Int NEG Ctl Pass (05/14/22 8:33 PM) Normal [facility] Man Sero Rapid COV Int POS Ctl Pass (05/14/22 8:33 PM) Normal [facility] Man Sero SARS-CoV+SARS-CoV-2 (COVID-19) Ag IA.rapid Ql (Resp) Not Detected (05/14/22 8:33 PM) Normal Not Detected [facility] Man Sero No Panel InformationOrdered By: ANGPROCESSSERVER MICROBIOLOGY on 05-14-2022 Blood Culture Charcoal No growth at 3 da ys. Final to follow at 7 days. [facility] Blood Culture Charcoal No growth at 3 da ys. Final to follow at 7 days. [facility] Alkaline Phosphatase Isoenzy nelly 04-27-2022 ALP [Catalytic activity/Vol] 178 U/L High 44-121 [facility] Comment on above: Order Comment: FASTI NG: N Performed By: #### H APT, RETIC #### [address] Bone Fraction 60 % Normal 14-68 [facility] Comment on above: Order Comment: FASTI NG: N Performed By: #### H APT, RETIC #### [address] Intestinal Fraction 1 % Normal 0-18 [facility] Comment on above: Order Comment: FASTI NG: N Result Comment: Perf ormed at: - [facility] [address] [id number] [employer] Laborer: Ponce Lr PhD, Phone: [phone] PERFORMED BY: [place] [address] PATHOLOGIST WIRE MILL OPERATOR KWADWO PULIDO M.D. Performed By: #### H APT, RETIC #### [address] Liver Fraction 39 % Normal 18-85 [facility] Comment on above: Order Comment: FASTI NG: N Performed By: #### H APT, RETIC #### [address] Basic Metabolic Panelon Estimated GFR ( Edwin > 60 Normal [facility] Comment on above: Result Comment: GFR estimated reference range: According to KDOQI guidelines, <60 ml/min/1.73m2 is sufficient to diagnose a patient with chronic kidney disease. Performed By: #### M G, PHOS, TSH3, BMP, PTH #### [facility] [address] [place] [address] [place] #### ALK PHOSIS #### [facility] , Estimated GFR (Non- Am 54 Normal [facility] Comment on above: Performed By: #### M G, PHOS, TSH3, BMP, PTH #### [facility] [address] [place] [address] [place] #### ALK PHOSIS #### [facility] , Estimated glomerular filtrat ion rate (GFR) non- AmericanOrdered By: Leonel Aguirre on 04-27-2022 GFR/1.73 sq M.predicted among non-blacks MDRD (S/P/Bld) [Vol rate/Area] 54 mL/Min [facility] MagnesiumOrdered By: Leonel Aguirre on 04-27-2022 Magnesium [Mass/Vol] 1.7 mg/dL Normal 1.6-2.6 [facility] Comment on above: Performed By: #### M G, PHOS, TSH3, BMP, PTH #### [facility] [address] [place] [address] [place] #### ALK PHOSIS #### [facility] , No Panel InformationOrdered By: Leonel Aguirre on 04-27-2022 Estimated GFR () > 60 mL/Min [facility] Comment on above: GFR estimated refere nce range: According to KDOQI guidelines, <60 ml/min/1.73m2 is sufficient to diagnose a patient with chronic kidney disease. Pharmacy Creatinine Clearance (Chem N/A [facility] Parathyroid Hormone [place] 04-27-2022 Parathyroid Hormone Intact 244.8 pg/mL High [facility] Comment on above: Result Comment: PERF ORMED BY: [place] [address] PATHOLOGIST WIRE MILL OPERATOR KWADWO PULIDO M.D. Performed By: #### H APT, RETIC #### [address] Phosphate [Mass/volume] in S shanti or PlasmaOrdered By: Leonel Aguirre on 04-27-2022 Phosphate [Mass/Vol] 4.3 mg/dL Normal 2.5-4.6 [facility] Comment on above: Performed By: #### M G, PHOS, TSH3, BMP, PTH #### [address] #### ALK PHOSIS #### [facility] , Serum or plasma anion gap de terminationOrdered By: Leonel Aguirre on 04-27-2022 Anion gap [Moles/Vol] 14.6 mmol/L Normal 6.0-15.0 [facility] Comment on above: Performed By: #### M G, PHOS, TSH3, BMP, PTH #### [address] #### ALK PHOSIS #### [facility] , Serum or plasma calcium zuleyma urement (mass/volume)Ordered By: Leonel Aguirre on 04-27-2022 Calcium [Mass/Vol] 9.2 mg/dL Normal 8.2-10.2 [facility] Comment on above: Performed By: #### M G, PHOS, TSH3, BMP, PTH #### [address] #### ALK PHOSIS #### [facility] , Serum or plasma chloride niko surement (moles/volume)Ordered By: Leonel Aguirre on 04-27-2022 Chloride [Moles/Vol] 98 mmol/L Normal 95-114 [facility] Comment on above: Performed By: #### M G, PHOS, TSH3, BMP, PTH #### [place] [address] [place] #### ALK PHOSIS #### [facility] , Serum or plasma creatinine m easurement with calculation of estimated glomerular filtrOrdered By: Leonel Aguirre on 04-27-2022 Creatinine [Mass/Vol] 1.00 mg/dL Normal 0.44-1.03 [facility] Comment on above: Performed By: #### M G, PHOS, TSH3, BMP, PTH #### [place] [address] [place] #### ALK PHOSIS #### [facility] , Serum or plasma glucose zuleyma urement (mass/volume)Ordered By: Leonel Aguirre on 04-27-2022 Glucose [Mass/Vol] 102 mg/dL High 70-100 [facility] Comment on above: ADA recommended refe rence rangeRandom Glucose Reference Range is dependent on time and content of last meal. Glucose of more than 200 mg/dL in a nonstressed, ambulatory subject supports the diagnosis of Diabetes Mellitus. Result Comment: [place] om Glucose Reference Range is dependent on time and content of last meal. Glucose of more than 200 mg/dL in a nonstressed, ambulatory subject supports the diagnosis of Diabetes Mellitus. ADA recommended reference range Performed By: #### M G, PHOS, TSH3, BMP, PTH #### [place] [address] [place] #### ALK PHOSIS #### [facility] , Serum or plasma intact parat hyroid hormone measurement (mass/volume)Ordered By: Leonel Aguirre on 04-27-2022 Parathyrin.intact [Mass/Vol] 244.8 pg/mL [facility] Serum or plasma potassium me asurement (moles/volume)Ordered By: Leonel Aguirre on 04-27-2022 Potassium [Moles/Vol] 5.0 mmol/L Normal 3.5-5.1 [facility] Comment on above: Performed By: #### M G, PHOS, TSH3, BMP, PTH #### [place] [address] [place] #### ALK PHOSIS #### [facility] , Serum or plasma sodium measu rement (moles/volume)Ordered By: Leonel Aguirre on 04-27-2022 Sodium [Moles/Vol] 130 mmol/L Low 136-146 [facility] Comment on above: Performed By: #### M G, PHOS, TSH3, BMP, PTH #### [place] [address] [place] #### ALK PHOSIS #### [facility] , Serum or plasma thyroid stim ulating hormone (TSH) measurement by high sensitivity metOrdered By: Leonel Aguirre on 04-27-2022 TSH Qn 0.85 m[IU]/L Normal 0.45-5.33 [facility] Comment on above: Performed By: #### M G, PHOS, TSH3, BMP, PTH #### [place] [address] [place] #### ALK PHOSIS #### [facility] , Serum or plasma total carbon dioxide measurement (moles/volume)Ordered By: Leonel Aguirre on 04-27-2022 CO2 [Moles/Vol] 22.4 mmol/L Normal 22.0-30.0 [facility] Comment on above: Performed By: #### M G, PHOS, TSH3, BMP, PTH #### [facility] [address] [place] [address] [place] #### ALK PHOSIS #### [facility] , Serum or plasma urea nitroge n measurement (mass/volume)Ordered By: Leonel Aguirre on 04-27-2022 Urea nitrogen [Mass/Vol] 17 mg/dL Normal 9-23 [facility] Comment on above: Performed By: #### M G, PHOS, TSH3, BMP, PTH #### [place] [address] [place] #### ALK PHOSIS #### [facility] , CHEMISTRYOrdered By: SYSTEM SYSTEM on 04-22-2022 Cobalamin (Vitamin B12) [Mass/Vol] 478 pg/mL Normal 50 - 1500 pg/mL [facility] Laboratory - Chemistry and C hemistry - challengeOrdered By: dooub SYSTEM on 04-22-2022 Albumin [Mass/Vol] 4.0 g/dL [...] Remisol CRP [Mass/Vol] 4.9 mg/dL High <=1.9mg/dL [facility] GFR/1.73 sq M.predicted among blacks MDRD (S/P/Bld) [Vol rate/Area] 53 mL/min/1.73 m2 Low >=59mL/min /1.73 m2 FT Chem S GFR/1.73 sq M.predicted among non-blacks MDRD (S/P/Bld) [Vol rate/Area] 44 mL/min/1.73 m2 Low >=59mL/min /1.73 m2 [facility] Chem S Globulin (S) [Mass/Vol] 2.7 g/dL Normal 1.4 - 4.0 gm/dL [facility] Glucose [Mass/Vol] 113 mg/dL Normal 55 - 199 mg/dL [facility] Potassium [Moles/Vol] 4.3 mmol/L Normal 3.5 [...] 30.3 % Low 34.0 - 46.0 % [facility] Hemoglobin (Bld) [Mass/Vol] 10.1 g/dL Low [...] 4.1 g/dL Normal 3.3 - 5.0 gm/dL [facility] Albumin/Globulin [Mass ratio] 1.8 {ratio} Normal [...] 46.0 % [facility] Hemoglobin (Bld) [Mass/Vol] 10.2 g/dL Low [...] 4.0 E9/L Normal 4.0 - 11.0 E9/L [facility] No Panel InformationOrdered By: Radha Aldridge on 01-28-2022 Sed Rate Automated 9 mm/h Normal 0 - 34 mm/hr [facility] Albumin [Mass/volume] in Ser um or PlasmaOrdered By: Leonel Aguirre on 12-23-2021 Albumin [Mass/Vol] 4.0 g/dL 3.2-5.5 [facility] Basophils Auto (Bld) [#/Vol] Ordered By: Leonel Aguirre on 12-23-2021 Basophils (Bld) [#/Vol] 0.0 10*3/uL 0.0-0.2 [facility] Basophils/100 WBC Auto (Bld) Ordered By: Leonel Aguirre on 12-23-2021 Basophils/100 WBC (Bld) 0.2 % . [facility] Blood hemoglobin measurement (mass/volume)Ordered By: Leonel Aguirre on 12-23-2021 Hemoglobin (Bld) [Mass/Vol] 9.8 g/dL 11.8-15.4 [facility] Blood leukocytes automated c ount (number/volume)Ordered By: Leonel Aguirre on 12-23-2021 WBC (Bld) [#/Vol] 4.3 10*3/uL 4.5-11.0 [facility] C reactive protein [Mass/vol ume] in Serum or PlasmaOrdered By: Leonel Aguirre on 12-23-2021 CRP [Mass/Vol] < 0.5 mg/dL 0.0-1.0 [facility] Creatinine and Glomerular fi ltration rate.predicted panel (S/P/Bld)Ordered By: Leonel Aguirre on 12-23-2021 Creatinine [Mass/Vol] 1.13 mg/dL 0.44-1.03 [facility] Eosinophils Auto (Bld) [#/Vo l]Ordered By: Leonel Aguirre on 12-23-2021 Eosinophils (Bld) [#/Vol] 0.0 10*3/uL 0.0-0.45 [facility] Eosinophils/100 WBC Auto (Bl d)Ordered By: Leonel Aguirre on 12-23-2021 Eosinophils/100 WBC (Bld) 0.0 % . [facility] Erythrocyte distribution wid th Auto (RBC) [Ratio]Ordered By: Leonel Aguirre on 12-23-2021 Erythrocyte distribution width (RBC) [Ratio] 14.7 % 11.9-15.3 [facility] Erythrocyte sedimentation ra te by Photometric methodOrdered By: Leonel Aguirre on 12-23-2021 ESR Photometric method (Bld) [Velocity] 2 mm/hr 0-29 [facility] Estimated glomerular filtrat ion rate (GFR) non- AmericanOrdered By: Leonel Aguirre on 12-23-2021 GFR/1.73 sq M.predicted among non-blacks MDRD (S/P/Bld) [Vol rate/Area] 47 mL/Min [facility] Globulin Calc (S) [Mass/Vol] Ordered By: Leonel Aguirre on 12-23-2021 Globulin (S) [Mass/Vol] 1.8 g/dL [facility] Hematocrit Auto (Bld) [Volum e fraction]Ordered By: Leonel Aguirre on 12-23-2021 Hematocrit (Bld) [Volume fraction] 29.8 % 34.0-46.4 [facility] Hepatitis B virus surface Ag [Presence] in Serum or Plasma by ImmunoassayOrdered By: Leonel Aguirre on 12-23-2021 HBV surface Ag IA Ql Negative Negative [facility] Laboratory - Hematology and Cell countsOrdered By: Leonel Aguirre on 12-23-2021 Nucleated RBC/100 WBC (Bld) [Ratio] 0.1 % 0-0.5 [facility] Lymphocytes Auto (Bld) [#/Vo l]Ordered By: Leonel Aguirre on 12-23-2021 Lymphocytes (Bld) [#/Vol] 0.5 10*3/uL 1.00-4.8 [facility] Lymphocytes/100 WBC Auto (Bl d)Ordered By: Leonel Aguirre on 12-23-2021 Lymphocytes/100 WBC (Bld) 12.2 % . [facility] MCH Auto (RBC) [Entitic mass ]Ordered By: Leonel Aguirre on 12-23-2021 MCH (RBC) [Entitic mass] 34.1 pg 24.7-34.3 [facility] MCHC Auto (RBC) [Mass/Vol]Or dered By: Leonel Aguirre on 12-23-2021 MCHC (RBC) [Mass/Vol] 32.9 g/dL 32.0-35.0 [facility] MCV Auto (RBC) [Entitic vol] Ordered By: Leonel Aguirre on 12-23-2021 MCV (RBC) [Entitic vol] 103.7 fL 80-100 [facility] Monocytes Auto (Bld) [#/Vol] Ordered By: Leonel Aguirre on 12-23-2021 Monocytes (Bld) [#/Vol] 0.2 10*3/uL 0.0-0.8 [facility] Monocytes/100 WBC Auto (Bld) Ordered By: Leonel Aguirre on 12-23-2021 Monocytes/100 WBC (Bld) 4.4 % . [facility] Neutrophils Auto (Bld) [#/Vo l]Ordered By: Leonel Aguirre on 12-23-2021 Neutrophils (Bld) [#/Vol] 3.6 10*3/uL 1.8-7.7 [facility] Neutrophils/100 WBC Auto (Bl d)Ordered By: Leonel Aguirre on 12-23-2021 Neutrophils/100 WBC (Bld) 83.2 % . [facility] No Panel InformationOrdered By: Leonel Aguirre on 12-23-2021 Estimated GFR () 57 mL/Min [facility] Comment on above: GFR estimated refere nce range: According to KDOQI guidelines, <60 ml/min/1.73m2 is sufficient to diagnose a patient with chronic kidney disease. Hepatitis B Core Total Antibody Negative Negative [facility] Comment on above: Performed at: [address] [id number] [employer] Laborer: Ponce Lr PhD, Phone: [phone] Hepatitis C Interpretation See comment . [facility] Comment on above: Negative Not infected with HCV, unless recent infection is suspected or other evidence exists to indicate HCV infection. Hepatitis C RNA Quantitative N/A [facility] Pharmacy Creatinine Clearance (Chem N/A [facility] Platelet mean volume Auto (B ld) [Entitic vol]Ordered By: Leonel Aguirre on 12-23-2021 Platelet mean volume (Bld) [Entitic vol] 8.5 fL 6.3-10.7 [facility] Platelets Auto (Bld) [#/Vol] Ordered By: Leonel Aguirre on 12-23-2021 Platelets (Bld) [#/Vol] 139 10*3/uL 150-450 [facility] Protein [Mass/volume] in Ser um or PlasmaOrdered By: Leonel Aguirre on 12-23-2021 Protein [Mass/Vol] 5.8 g/dL 6.1-7.9 [facility] RBC Auto (Bld) [#/Vol]Ordere d By: Leonel Aguirre on 12-23-2021 RBC (Bld) [#/Vol] 2.87 10*6/uL 3.60-5.00 [facility] Serum hepatitis B virus surf alex antibody detectionOrdered By: Leonel Aguirre on 12-23-2021 HBV surface Ab Ql (S) Non-Reactive . [facility] Comment on above: Non Reactive: Incons istent with immunity, less than 10 mIU/mL Reactive: Consistent with immunity, greater than 9.9 mIU/mL Serum nuclear antibody titer Ordered By: Leonel Aguirre on 12-23-2021 Nuclear Ab (S) [Titer] Negative . [facility] Comment on above: Negative <1:80 Borderline 1:80 Positive >1:80 ICAP nomenclature: AC-0 For more information about Hep-2 cell patterns use ANApatterns.org, the official website for the International Consensus on Antinuclear Antibody (EDNA) Patterns (ICAP). Performed at: [facility] [address] [id number] [employer] Laborer: Ponce Lr PhD, Phone: [phone] Serum or plasma alanine khan otransferase measurement without P-5'-P (enzymatic activiOrdered By: Leonel Aguirre on 12-23-2021 ALT No additional P-5'-P [Catalytic activity/Vol] 67 U/L 10-60 [facility] Serum or plasma albumin/glob ulin mass ratioOrdered By: Leonel Aguirre on 12-23-2021 Albumin/Globulin [Mass ratio] 2.2 {ratio} [facility] Serum or plasma alkaline gaston sphatase measurement (enzymatic activity/volume)Ordered By: Leonel Aguirre on 12-23-2021 ALP [Catalytic activity/Vol] 87 U/L 32-92 [facility] Serum or plasma aspartate am inotransferase measurement (enzymatic activity/volume)Ordered By: Leonel Aguirre on 12-23-2021 AST [Catalytic activity/Vol] 71 U/L 10-42 [facility] Serum or plasma calcium zuleyma urement (mass/volume)Ordered By: Leonel Aguirre on 12-23-2021 Calcium [Mass/Vol] 9.1 mg/dL 8.2-10.2 [facility] Serum or plasma chloride niko surement (moles/volume)Ordered By: Leonel Aguirre on 12-23-2021 Chloride [Moles/Vol] 99 mmol/L 95-114 [facility] Serum or plasma glucose zuleyma urement (mass/volume)Ordered By: Leonel Aguirre on 12-23-2021 Glucose [Mass/Vol] 101 mg/dL 70-100 [facility] Comment on above: ADA recommended refe rence [...] IA [Rel units/Vol] 0.1 s/co ratio 0.0-0.9 [facility] Serum or plasma potassium me asurement (moles/volume)Ordered By: Leonel Aguirre on 12-23-2021 Potassium [Moles/Vol] 5.8 mmol/L 3.5-5.1 [facility] Serum or plasma sodium measu rement (moles/volume)Ordered By: Leonel Aguirre on 12-23-2021 Sodium [Moles/Vol] 133 mmol/L 136-146 [facility] Serum or plasma total biliru bin measurement (mass/volume)Ordered By: Leonel Aguirre on 12-23-2021 Bilirubin [Mass/Vol] 0.9 mg/dL 0.3-1.2 [facility] Serum or plasma total carbon dioxide measurement (moles/volume)Ordered By: Leonel Aguirre on 12-23-2021 CO2 [Moles/Vol] 24.1 mmol/L 22.0-30.0 [facility] Serum or plasma urea nitroge n measurement (mass/volume)Ordered By: Leonel Aguirre on 12-23-2021 Urea nitrogen [Mass/Vol] 16 mg/dL 9-23 [facility] CHEMISTRYOrdered By: SYSTEM SYSTEM on 10-28-2021 CRP [Mass/Vol] 0.5 mg/dL Normal <=1.9mg/dL [facility] Remisol HEMATOLOGYOrdered By: Melissa King on 10-28-2021 Sed Rate Automated 8 mm/h Normal 0 - 34 mm/hr [facility] HemeAuto[facility] Reference Laboratory Testing Ordered By: Abril Holder on 10-28-2021 Lab Miscellaneous clerical error Invalid Interpretation Code [facility] Reference Laboratory Testing Ordered By: Esmer Becerra on 10-28-2021 Test Code 091994 Invalid Interpretation Code [facility] Test Name vit b6 Invalid Interpretation Code [facility] Complete Blood Counton 07-20 Erythrocyte distribution width (RBC) [Ratio] 15.4 % High 11.0-15.0 [facility] [employer]r Comment on above: Performed By: #### C BC, CMP, LIPD #### [facility] [address] [place], [place] [id number] Hematocrit (Bld) [Volume fraction] 31.7 % Low 35.0-47.0 [facility] [employer] Comment on above: Performed By: #### C BC, CMP, LIPD #### [facility] [address] [place], [place] [id number] Hemoglobin (Bld) [Mass/Vol] 10.0 g/dL Low 11.6-15.5 [facility] [employer] Comment on above: Performed By: #### C BC, CMP, LIPD #### [facility] [address] [facility] [place] [id number] MCH (RBC) [Entitic mass] 33.6 pg High 27.0-33.0 [facility] Specialist Comment on above: Performed By: #### C BC, CMP, LIPD #### [facility] [address] [facility] [place] [id number] MCHC (RBC) [Mass/Vol] 31.5 g/dL Low 32.0-36.0 [facility] Comment on above: Performed By: #### C BC, CMP, LIPD #### [facility] [address] [place], [place] [id number] MCV (RBC) [Entitic vol] 106 fL High 80-100 [facility] Comment on above: Performed By: #### C BC, CMP, LIPD #### [facility] [address] [place], [place] [id number] Platelet mean volume (Bld) [Entitic vol] 10.70 fL Normal 7.50-12.50 [facility] Specialist Comment on above: Performed By: #### C BC, CMP, LIPD #### [facility] [address] [place], [place] [id number] Platelets (Bld) [#/Vol] 189 10*3/uL Normal 140-400 [facility] Specialist Comment on above: Performed By: #### C BC, CMP, LIPD #### [facility] [address] [place], [place] [id number] RBC (Bld) [#/Vol] 2.98 10*6/uL Low 3.90-5.20 [facility] Specialist Comment on above: Performed By: #### C BC, CMP, LIPD #### [facility] [address] [place], [place] [id number] RDW-SD 58.5 fL High 37.0-50.0 [facility] Specialist Comment on above: Performed By: #### C BC, CMP, LIPD #### [facility] [address] [facility] [place] [id number] WBC (Bld) [#/Vol] 5.7 10*3/uL Normal 3.8-11.0 [place] [employer] Comment on above: Performed By: #### C BC, CMP, LIPD #### [facility] [address] [place], [place] [id number] Comprehensive Metabolic Pane edel 07-20-2021 Albumin [Mass/Vol] 4.2 g/dL Normal 3.6-5.1 [place] [employer] Comment on above: Performed By: #### C BC, CMP, LIPD #### [facility] [address] [place], [place] [id number] Albumin/Globulin [Mass ratio] 2.0 {ratio} Normal 1.0-2.5 [facility] [employer] Rep[employer]r Comment on above: Performed By: #### C BC, CMP, LIPD #### [facility] [address] [place], [place] [id number] ALP [Catalytic activity/Vol] 117 U/L Normal 35-119 [facility] Figure [employer]isher [employer] Repairer Comment on above: Performed By: #### C BC, CMP, LIPD #### [facility] [address] [place], [place] [id number] ALT [Catalytic activity/Vol] 34 U/L High 6-33 [facility] Figure [employer] Rep[employer]r Comment on above: Result Comment: 04/21 Female reference range changed. Performed By: #### C BC, CMP, LIPD #### [facility] [address] [place], [place] [id number] Anion gap [Moles/Vol] 19 mmol/L Normal 12-20 [facility] Specialist Comment on above: Result Comment: Effe ctive 05/27/2019 reference range changed. Performed By: #### C BC, CMP, LIPD #### [facility] [address] [place], [place] [id number] AST [Catalytic activity/Vol] 45 U/L High 9-34 [facility] Specialist Comment on above: Performed By: #### C BC, CMP, LIPD #### [facility] [address] [place], [place] [id number] Bilirubin [Mass/Vol] 0.65 mg/dL Normal 0.30-1.20 [facility] Specialist Comment on above: Performed By: #### C BC, CMP, LIPD #### [facility] [address] [place], [place] [id number] BUN/CREA 16 Ratio Normal 6-22 [facility] Comment on above: Performed By: #### C BC, CMP, LIPD #### [facility] [address] [place], [place] [id number] Calcium [Mass/Vol] 9.3 mg/dL Normal 8.6-10.2 [facility] Comment on above: Performed By: #### C BC, CMP, LIPD #### [facility] [address] [place], [place] [id number] Chloride [Moles/Vol] 101 mmol/L Normal 98-107 [facility] Comment on above: Performed By: #### C BC, CMP, LIPD #### [facility] [address] [place], [place] [id number] CO2 [Moles/Vol] 22 mmol/L Normal 20-31 [facility] Comment on above: Performed By: #### C BC, CMP, LIPD #### [facility] [address] [place], [place] [id number] Creatinine [Mass/Vol] 1.1 mg/dL Normal 0.6-1.4 [facility] Comment on above: Performed By: #### C BC, CMP, LIPD #### [facility] [address] [place], [place] [id number] eGFRAA 61 mL/min/1.73m2 Normal >60 [facility] Specialist Comment on above: Performed By: #### C BC, CMP, LIPD #### [facility] [address] [place], [place] [id number] eGFRNAA 51 mL/min/1.73m2 Low >60 [facility] Comment on above: Performed By: #### C BC, CMP, LIPD #### [facility] [address] [place], [place] [id number] Globulin (S) [Mass/Vol] 2.1 g/dL Normal 1.9-3.7 [facility] Comment on above: Performed By: #### C BC, CMP, LIPD #### [facility] [address] [place], [place] [id number] Glucose [Mass/Vol] 94 mg/dL Normal 65-99 [place] [employer] Repairer Comment on above: Result Comment: For FASTING Glucose --- ADA reference ranges: Normal 65-99 mg/dl Prediabetes 100-125 Diabetes >/= 126 Performed By: #### C BC, CMP, LIPD #### [facility] [address] [facility] [place] [id number] Potassium [Moles/Vol] 5.1 mmol/L Normal 3.5-5.5 [facility] Comment on above: Performed By: #### C BC, CMP, LIPD #### [facility] [address] [facility] [place] [id number] Protein [Mass/Vol] 6.3 g/dL Normal 6.1-8.1 [place] [employer] Repairer Comment on above: Performed By: #### C BC, CMP, LIPD #### [facility] [address] [facility] [place] [id number] Sodium [Moles/Vol] 137 mmol/L Normal 135-146 [facility] Figure Refinisher And Repairer Comment on above: Performed By: #### C BC, CMP, LIPD #### [facility] [address] [facility] [place] [id number] Urea nitrogen [Mass/Vol] 17 mg/dL Normal 7-25 [facility] Figure Ref[employer]isher [employer] Repairer Comment on above: Performed By: #### C BC, CMP, LIPD #### [facility] [address] [place], [place] [id number] Hemoglobin A1Con 07-20-2021 EAG 108.28 Normal [facility] Figure Refinisher [employer] Repairer Comment on above: Performed By: #### A 1C #### [facility] [address] [place], [place] [id number] HbA1c (Bld) [Mass fraction] 5.4 % Normal 4.0-6.0 [facility] Figure Refinisher And Repairer Comment on above: Performed By: #### A 1C #### [facility] [address] [place], [place] [id number] Lipid Panelon 07-20-2021 Cholesterol [Mass/Vol] 145 mg/dL Normal 125-200 [facility] Comment on above: Result Comment: Low risk < 200mg/dL Borderline risk 201-239 mg/dl High risk > or equal to 240 Performed By: #### C BC, CMP, LIPD #### [facility] [address] [place], [place] [id number] Cholesterol in HDL [Mass/Vol] 75 mg/dL Normal >40 [facility] Specialist Comment on above: Result Comment: High Cardiovascular Risk HDL <40 mg/dL Low Cardiovascular Risk HDL > or equal to 60 mg/dl Performed By: #### C BC, CMP, LIPD #### [facility] [address] [facility] [place] [id number] Cholesterol in LDL [Mass/Vol] 53 mg/dL Normal [facility] Comment on above: Result Comment: LDL ATP III CLASSIFICATION LDL less than 100 mg/dl Optimal LDL 100-129 mg/dl Near or above optimal LDL 130-159 Borderline high LDL 160-189 High LDL greater than 189 mg/dl Very High Performed By: #### C BC, CMP, LIPD #### [facility] [address] [place], [place] [id number] Cholesterol in VLDL [Mass/Vol] 17 mg/dL Normal [facility] Specialist Comment on above: Performed By: #### C BC, CMP, LIPD #### [facility] [address] [place], [place] [id number] Cholesterol.total/Carrie sterol in HDL [Mass ratio] 2 {ratio} Normal [facility] Comment on above: Performed By: #### C BC, CMP, LIPD #### [facility] [address] [place], [place] [id number] Triglyceride [Mass/Vol] 86 mg/dL Normal 30-150 [facility] Comment on above: Result Comment: TRIG ATPIII CLASSIFICATIONS TRIG less than 150 mg/dl Normal TRIG 150-199 mg/dl Borderline High TRIG 200-500 mg/dl High TRIG greather than 500 mg/dl Very High Performed By: #### C BC, CMP, LIPD #### [facility] [address] [place], [place] [id number] TSHon 07-20-2021 TSH 1.310 uIU/mL Normal 0.400-4.50 0 [facility] Specialist Comment on above: Performed By: #### T SH #### [facility] [address] [place], [place] [id number] Vitamin B12/Folateon 022 Cobalamin (Vitamin B12) [Mass/Vol] 447 pg/mL Normal 211-946 [facility] Figure Refinisher And Repairer Comment on above: Performed By: #### B 12/Fol #### [facility] [address] [place], [place] [id number] FOL 16.2 ng/mL Normal >4.7 [facility] Figure Refinisher And Repairer Comment on above: Result Comment: Refe rence range change 04/07/2017. Prior reference range F 4.8-37.3 ng/mL, M 4.5-32.2 ng/mL. Performed By: #### B 12/Fol #### [facility] [address] [place], [place] [id number] PROLACTINon 04-01-2021 Prolactin 29.3 ng/mL Critically high 4.8-23.3 [facility] Comment on above: Performed By: #### P ROLAC #### [facility] [address] [place] [address] Dr. Alma Rosa Rosado BNPon 03-31-2021 Natriuretic peptide B (Bld) [Mass/Vol] 981.0 pg/mL Normal <=1,800.0 [facility] Comment on above: Performed By: #### C RP, BNP, RENAL, BMP #### [facility] [address] [place] [address] Dr. Alma Rosa Rosado CBC AUTO DIFFon 03-31-2021 BASO # 0.0 103/ul Normal 0.0-0.1 [facility] Comment on above: Performed By: #### C BC #### [facility] [address] [place] [address] Dr. Alma Rosa Rosado Basophils/100 WBC (Bld) 0.6 % Normal 0.2-2.0 [facility] Comment on above: Performed By: #### C BC #### [facility] [address] [place] [address] Dr. Alma Rosa Rosado EO # 0.0 103/ul Normal 0.0-0.7 [facility] Comment on above: Performed By: #### C BC #### [facility] [address] [place] [address] Dr. Alma Rosa Rosado Eosinophils/100 WBC (Bld) 0.0 % Critically low 0.9-7.0 [facility] Comment on above: Performed By: #### C BC #### [facility] [address] [place] [address] Dr. Alma Rosa Rosado Erythrocyte distribution width (RBC) [Ratio] 13.4 % Normal 11.0-15.0 [facility] Comment on above: Performed By: #### C BC #### [facility] [address] [place] [address] Dr. Alma Rosa Rosado Hematocrit (Bld) [Volume fraction] 30.1 % Critically low 36.0-48.0 [facility] Comment on above: Performed By: #### C BC #### [facility] [address] [place] [address] Dr. Alma Rosa Rosado Hemoglobin (Bld) [Mass/Vol] 9.7 g/dL Critically low 12.0-16.0 [facility] Comment on above: Performed By: #### C BC #### [facility] [address] [place] [address] Dr. Alma Rosa Rosado IG # 0.05 10e3/ul Critically high 0.00-0.03 [facility] Comment on above: Performed By: #### C BC #### [facility] [address] [place] [address] Dr. Alma Rosa Rosado IG % 1.0 % Critically high 0.0-0.5 [facility] Comment on above: Performed By: #### C BC #### [facility] [address] [place] [address] Dr. Alma Rosa Rosado LYMPH # 1.2 103/ul Normal 1.2-3.8 [facility] Comment on above: Performed By: #### C BC #### [facility] [address] [place] [address] Dr. Alma Rosa Rosado Lymphocytes/100 WBC (Bld) 23.8 % Normal 20.5-60.0 [facility] Comment on above: Performed By: #### C BC #### [facility] [address] [place] [address] Dr. Alma Rosa Rosado MANUAL DIFF REQ NO Normal [facility] Comment on above: Performed By: #### C BC #### [facility] [address] [place] [address] Dr. Alma Rosa Rosado MCH (RBC) [Entitic mass] 33.3 pg Normal 26.7-34.0 [facility] Comment on above: Performed By: #### C BC #### [facility] [address] [place] [address] Dr. Alma Rosa Rosado MCHC (RBC) [Mass/Vol] 32.2 g/dL Normal 29.9-35.2 [facility] Comment on above: Performed By: #### C BC #### [facility] [address] [place] [address] Dr. Alma Rosa Rosado MCV (RBC) [Entitic vol] 103.4 fL Critically high 81.0-99 .0 [facility] Comment on above: Performed By: #### C BC #### [facility] [address] [place] [address] Dr. Alma Rosa Rosado MONO # 0.5 103/ul Normal 0.3-0.8 [facility] Comment on above: Performed By: #### C BC #### [facility] [address] [place] [address] Dr. Alma Rosa Rosado Monocytes/100 WBC (Bld) 11.0 % Normal 1.7-12.0 [facility] Comment on above: Performed By: #### C BC #### [facility] [address] [place] [address] Dr. Alma Rosa Rosado NEUT # 3.1 103/ul Normal 1.4-6.5 [facility] Comment on above: Performed By: #### C BC #### [facility] [address] [place] [address] Dr. Alma Rosa Rosado Neutrophils/100 WBC (Bld) 63.6 % Normal 43.0-75.0 [facility] Comment on above: Performed By: #### C BC #### [facility] [address] [place], [place] [id number] Dr. Alma Rosa Rosado Platelet mean volume (Bld) [Entitic vol] 10.0 fL Normal 9.5-13.5 [facility] Comment on above: Performed By: #### C BC #### [facility] [address] [place] [address] Dr. Alma Rosa Rosado PLT 165 103/ul Normal 150-450 [facility] Comment on above: Performed By: #### C BC #### [facility] [address] [place] [address] Dr. Alma Rosa Rosado RBC 2.91 106/ul Critically low 4.20-5.40 [facility] Comment on above: Performed By: #### C BC #### [facility] [address] [place] [address] Dr. Alma Rosa Rosado WBC 4.8 103/ul Normal 4.0-11.0 [facility] Comment on above: Performed By: #### C BC #### [facility] [address] [place] [address] Dr. Alma Rosa Rosado CRPon 03-31-2021 CRP [Mass/Vol] mg/L Normal <=1.0 [facility] Comment on above: Performed By: #### C RP, BNP, RENAL, BMP #### [facility] [address] [place] [address] Dr. Alma Rosa Rosado PROF CHEM 8 (BAS METB)on Anion gap [Moles/Vol] 10.9 mmol/L Normal [facility] Comment on above: Performed By: #### C RP, BNP, RENAL, BMP #### [facility] [address] [place] [address] Dr. Alma Rosa Rosado Calcium [Mass/Vol] 8.4 mg/dL Normal 8.4-10.2 [facility] Comment on above: Performed By: #### C RP, BNP, RENAL, BMP #### [facility] [address] [place] [address] Dr. Alma Rosa Rosado Chloride [Moles/Vol] 99 mmol/L Normal 98-107 [facility] Comment on above: Performed By: #### C RP, BNP, RENAL, BMP #### [facility] [address] [address] [address] Alma Rosa Rosado CO2 [Moles/Vol] 26.6 mmol/L Normal 22.0-30.0 [facility] Comment on above: Performed By: #### C RP, BNP, RENAL, BMP #### [facility] [address] [address] [address] Alma Rosa Rosado Creatinine [Mass/Vol] 0.83 mg/dL Normal 0.52-1.04 [facility] Comment on above: Performed By: #### C RP, BNP, RENAL, BMP #### [facility] [address] [address] [address] Alma Rosa Rosado EGFR-AF LEBANESE >60 Normal >=60 [facility] Comment on above: Performed By: #### C RP, BNP, RENAL, BMP #### [facility] [address] [place] [address] Dr. Alma Rosa Rosado EGFR-NON AF LEBANESE >60 Normal >=60 [facility] Comment on above: Performed By: #### C RP, BNP, RENAL, BMP #### [facility] [address] [address] [address] Alma Rosa Rosado Glucose [Mass/Vol] 101 mg/dL Normal 74-106 [facility] Comment on above: Performed By: #### C RP, BNP, RENAL, BMP #### [facility] [address] [address] [address] Alma Rosa Rosado Potassium [Moles/Vol] 4.4 mmol/L Normal 3.4-5.0 [facility] Comment on above: Performed By: #### C RP, BNP, RENAL, BMP #### [facility] [address] [address] [address] Alma Rosa Rosado Sodium [Moles/Vol] 132 mmol/L Critically low 137-145 [facility] Comment on above: Performed By: #### C RP, BNP, RENAL, BMP #### [facility] [address] [address] [address] Alma Rosa Rosado Urea nitrogen [Mass/Vol] 20.0 mg/dL Critically high 7.0-17.0 [facility] Comment on above: Performed By: #### C RP, BNP, RENAL, BMP #### [facility] [address] [address] [address] Alma Rosa Rosado Urea nitrogen/Creatinine [Mass ratio] 24.0 mg/mg Normal [facility] Comment on above: Performed By: #### C RP, BNP, RENAL, BMP #### [facility] [address] [address] [address] Alma Rosa Rosado RENAL FUNCTION PANELon 03-31 Albumin [Mass/Vol] 3.4 g/dL Critically low 3.5-5.0 [facility] Comment on above: Performed By: #### C RP, BNP, RENAL, BMP #### [facility] [address] [place] [address] Dr. Alma Rosa Rosado Phosphate [Mass/Vol] 3.3 mg/dL Normal 2.5-4.5 [facility] Comment on above: Performed By: #### C RP, BNP, RENAL, BMP #### [facility] [address] [address] [address] Alma Rosa Rosado SED RATE [facility] 2020 SED RATE <1 Normal <=30 [facility] Comment on above: Performed By: #### S EDR #### [facility] [address] [place] [address] Dr. Alma Rosa Garcían 03-18-2021 ALT [Catalytic activity/Vol] 31 U/L Normal 7 - 45 [facility] Comment on above: Result Comment: Zainab ents treated with Sulfasalazine may generate falsely decreased results for ALT. Performed By: #### A LT #### [address] [id number] Obie 03-18-2021 AST [Catalytic activity/Vol] 39 U/L Normal 9 - 39 [facility] Comment on above: Performed By: #### A ST #### [facility] [address] [place], [place] [id number] CBC AND DIFFERENTIALon 10-28 -2021 % AUTOMATED IMMATURE GRAN 0.8 % Normal 0.0 - 0.9 [facility] Comment on above: Result Comment: Sally ture Granulocyte Count (IG) includes promyelocytes, myelocytes and metamyelocytes but does not include bands. Percent differential counts (%) should be interpreted in the context of the absolute cell counts (cells/L). Performed By: #### C BCDF #### [address] [id number] Basophils (Bld) [#/Vol] 0.03 10*3/uL Normal 0.00 - 0.10 [facility] Comment on above: Performed By: #### C BCDF #### [address] [id number] Basophils/100 WBC (Bld) 0.5 % Normal 0.0 - 2.0 [facility] Comment on above: Performed By: #### C BCDF #### [address] [id number] Erythrocyte distribution width (RBC) [Ratio] 13.2 % Normal 11.5 - 14.5 [facility] Comment on above: Performed By: #### C BCDF #### [address] [id number] Hematocrit (Bld) [Volume fraction] 31.2 % Low 36.0 - 46.0 [facility] Comment on above: Performed By: #### C BCDF #### [address] [id number] Hemoglobin (Bld) [Mass/Vol] 9.7 g/dL Low 12.0 - 16.0 [facility] Comment on above: Performed By: #### C BCDF #### [address] [id number] Lymphocytes (Bld) [#/Vol] 0.89 10*3/uL Normal 0.80 - 3.00 [facility] Comment on above: Performed By: #### C BCDF #### [address] [id number] Lymphocytes/100 WBC (Bld) 13.9 % Normal 13.0 - 44.0 [facility] Comment on above: Performed By: #### C BCDF #### [address] [id number] MCHC (RBC) [Mass/Vol] 31.1 g/dL Low 32.0 - 36.0 [facility] Comment on above: Performed By: #### C BCDF #### [address] [id number] MCV (RBC) [Entitic vol] 108 fL High 80 - 100 [facility] Comment on above: Performed By: #### C BCDF #### [address] [id number] Monocytes (Bld) [#/Vol] 0.63 10*3/uL Normal 0.05 - 0.80 [facility] Comment on above: Performed By: #### C BCDF #### [address] [id number] Monocytes/100 WBC (Bld) 9.9 % Normal 2.0 - 10.0 [facility] Comment on above: Performed By: #### C BCDF #### [address] [id number] Neutrophils (Bld) [#/Vol] 4.78 10*3/uL Normal 1.60 - 5.50 [facility] Comment on above: Performed By: #### C BCDF #### [address] [id number] Neutrophils/100 WBC (Bld) 74.9 % Normal 40.0 - 80.0 [facility] Comment on above: Performed By: #### C BCDF #### [address] [id number] Platelets (Bld) [#/Vol] 157 10*3/uL Normal 150 - 450 [facility] Comment on above: Performed By: #### C BCDF #### [address] [id number] RBC 2.90 x10E12/L Low 4.00 - 5.20 [facility] Comment on above: Performed By: #### C BCDF #### [address] [id number] WBC (Bld) [#/Vol] 6.4 10*3/uL Normal 4.4 - 11.3 [facility] Comment on above: Performed By: #### C BCDF #### [address] [id number] CREATININEon 03-18-2021 Creatinine [Mass/Vol] 0.87 mg/dL Normal 0.50 - 1.05 [facility] Comment on above: Performed By: #### C REAT #### [address] [id number] GFR- AM. >60 Normal >60 [facility] Comment on above: Result Comment: CALC ULATIONS OF ESTIMATED GFR ARE PERFORMED USING THE MDRD STUDY EQUATION FOR THE IDMS-TRACEABLE CREATININE METHODS. CLIN CHEM 2007;53:766-72 Performed By: #### C REAT #### [address] [id number] GFR-NON AM. >60 Normal >60 [facility] Comment on above: Performed By: #### C REAT #### [address] [id number] SEDIMENTATION RATE, ERYTHROC YTEon 03-18-2021 SEDIMENTATION RATE, ERYTHROCYTE 7 mm/h Normal 0 - 20 [facility] Comment on above: Performed By: #### E SRWS #### [address] [id number] Hugo 07-24-2020 ALT [Catalytic activity/Vol] 34 U/L Normal 7 - 45 [facility] Comment on above: Result Comment: Zainab ents treated with Sulfasalazine may generate falsely decreased results for ALT. Performed By: #### A LT #### [address] [id number] Obie 07-24-2020 AST [Catalytic activity/Vol] 38 U/L Normal 9 - 39 [facility] Comment on above: Performed By: #### A ST #### [address] [id number] CBC AND DIFFERENTIALon 07-24 % AUTOMATED IMMATURE GRAN 0.5 % Normal 0.0 - 0.9 [facility] Comment on above: Result Comment: Sally ture Granulocyte Count (IG) includes promyelocytes, myelocytes and metamyelocytes but does not include bands. Percent differential counts (%) should be interpreted in the context of the absolute cell counts (cells/L). Performed By: #### C BCDF #### [address] [id number] Basophils (Bld) [#/Vol] 0.03 10*3/uL Normal 0.00 - 0.10 [facility] Comment on above: Performed By: #### C BCDF #### [address] [id number] Basophils/100 WBC (Bld) 0.5 % Normal 0.0 - 2.0 [facility] Comment on above: Performed By: #### C BCDF #### [address] [id number] Erythrocyte distribution width (RBC) [Ratio] 14.1 % Normal 11.5 - 14.5 [facility] Comment on above: Performed By: #### C BCDF #### [address] [id number] Hematocrit (Bld) [Volume fraction] 34.9 % Low 36.0 - 46.0 [facility] Comment on above: Performed By: #### C BCDF #### [address] [id number] Hemoglobin (Bld) [Mass/Vol] 10.8 g/dL Low 12.0 - 16.0 [facility] Comment on above: Performed By: #### C BCDF #### [address] [id number] Lymphocytes (Bld) [#/Vol] 1.14 10*3/uL Normal 0.80 - 3.00 [facility] Comment on above: Performed By: #### C BCDF #### [address] [id number] Lymphocytes/100 WBC (Bld) 20.1 % Normal 13.0 - 44.0 [facility] Comment on above: Performed By: #### C BCDF #### [address] [id number] MCHC (RBC) [Mass/Vol] 30.9 g/dL Low 32.0 - 36.0 [facility] Comment on above: Performed By: #### C BCDF #### [address] [id number] MCV (RBC) [Entitic vol] 106 fL High 80 - 100 [facility] Comment on above: Performed By: #### C BCDF #### [address] [id number] Monocytes (Bld) [#/Vol] 0.55 10*3/uL Normal 0.05 - 0.80 [facility] Comment on above: Performed By: #### C BCDF #### [address] [id number] Monocytes/100 WBC (Bld) 9.7 % Normal 2.0 - 10.0 [facility] Comment on above: Performed By: #### C BCDF #### [address] [id number] Neutrophils (Bld) [#/Vol] 3.91 10*3/uL Normal 1.60 - 5.50 [facility] Comment on above: Performed By: #### C BCDF #### [address] [id number] Neutrophils/100 WBC (Bld) 69.2 % Normal 40.0 - 80.0 [facility] Comment on above: Performed By: #### C BCDF #### [address] [id number] Platelets (Bld) [#/Vol] 162 10*3/uL Normal 150 - 450 [facility] Comment on above: Performed By: #### C BCDF #### [address] [id number] RBC 3.28 x10E12/L Low 4.00 - 5.20 [facility] Comment on above: Performed By: #### C BCDF #### [address] [id number] WBC (Bld) [#/Vol] 5.7 10*3/uL Normal 4.4 - 11.3 [facility] Comment on above: Performed By: #### C BCDF #### [address] [id number] CREATININEon 07-24-2020 Creatinine [Mass/Vol] 1.00 mg/dL Normal 0.50 - 1.05 [facility] Comment on above: Performed By: #### C REAT #### [address] [id number] GFR- AM. 65 mL/min/1.73m2 Normal >60 [facility] Comment on above: Result Comment: CALC ULATIONS OF ESTIMATED GFR ARE PERFORMED USING THE MDRD STUDY EQUATION FOR THE IDMS-TRACEABLE CREATININE METHODS. CLIN CHEM 2007;53:766-72 Performed By: #### C REAT #### [address] [id number] GFR-NON AM. 54 mL/min/1.73m2 Abnormal >60 [facility] Comment on above: Performed By: #### C REAT #### [address] [id number] SEDIMENTATION RATE, ERYTHROC YTEon 07-24-2020 SEDIMENTATION RATE, ERYTHROCYTE 1 mm/h Normal 0 - 20 [facility] Comment on above: Performed By: #### E SRWS #### [address] [id number] CHEST AND LATERALon 01-20-20 17 [facility] [place] [address] Zainab ent Name: KIKI MOORE : 1945Sex: FAge: Race: WhiteMRN: [id number]. Location: OUTPPatient Status: OVisit #: [id number] Date: 01/19/2017 7:00:00 AMCompleted Date: 01/19/2017 09:22 AMRequesting Provider: JORDAN BURNHAM Attending Provider: ROMINA ROBERTSON V Report Copy To: Signs & Symptoms: Evaluate the deviceHistory: Patient history not availableComments: s/p PFO closureExam: CHEST AND LATERALAccession #: [id number] ===CHEST AND LATERAL 01/19/2017 9:22 AM EDT [...] findings. Electronically signed by:Lola Petersen. Transcribed by: [email or web address], User Resident: DELIA Lovellectronically Signed by: LOLA PETERSEN @ 01/19/2017 11:30 AMI personally read this/these film(s) with this resident Normal [facility] Comment on above: Order Comment: s/p P FO closure Cardiovascular Lab Reporton 01-19-2017 Cardiovascular Lab Report [facility] Patient Name: Kiki Moore MR #: [id number] Physician: Romina Robertson M.D.Department of Service Date: 01/18/2017Medicine Birthdate: 1945Division of Room #: 3AB [id number] CardiovascularServicesUniv [facility] WorthGqaluzgVygklx[address] [place], [place] [address]Jzoie Fax Cardiovascular Laboratory ReportINDICATION: Kiki Moore is [...] signed informed consent. She was brought to cardiac cath technician in a fastingstate. The patient has been premedicated with aspirin and Plavix. She waspremedicated with antibiotics prior to the procedure.The groin areas were prepped and draped in usual fashion. Access into theright and left common femoral veins was obtained under ultrasound guidanceand a 11-Burkinan sheath was placed in the left femoral vein and a 6-Frenchsheath was placed in the right femoral vein. An [facility]Lab intracardiacechocardiograp hy catheter was then advanced from the left femoral vein intothe right atrial cavity and used to perform intracardiac echocardiography.A 6-Burkinan multipurpose catheter was advanced from the right [...] the rightfemoral vein was exchanged to a 11-Burkinan [place] sheath. The patienttolerated the procedure well. There [...] 11:31 P Romina Robertson M.D.Date Dict: 01/18/2017/11:23 A/Romina Robertson M.D.Date Trans: 01/19/2017 08:33 [id number] c: CARMLE Aldridge[address] [address] Normal [facility] CREATININE BLOODon 7 Creatinine 1.05 mg/dL Normal 0.60-1.20 [facility] Comment on above: Performed By: #### 2 5656 ####[address] [address] [facility].[address] eGFR (black) mL/min/{1.73_m2} Normal >60 [facility] Comment on above: Performed By: #### 2 5656 ####[address] [address] [facility].[address] eGFR (non-black) 52 ml/min/1.73sq m Abnormal >60 [facility] Comment on above: Performed By: #### 2 5656 ####[address] CTA HEART-CORONARY/ ARTERY B YPASS GRAFT WITH 3DPPon 12-30-2016 CTA HEART-CORONARY/ ARTERY BYPASS GRAFT WITH 3DPP [facility] [address] [place] [address] Zainab ent Name: KIKI MOORE : 1945Sex: FAge: Race: WhiteMRN: [id number]. Location: OUTPPatient Status: DVisit #: [id number] Date: 12/30/2016 1:00:00 PMCompleted Date: 12/30/2016 02:44 PMRequesting Provider: ROMINA ROBERTSON V Attending Provider: ROMINA ROBERTSON V Report Copy To: CINDA CORONEL Signs & Symptoms: R/O malignant course of anomalous RCAHistory: Script with patientComments: R/O malignant course of anomalous RCAExam: CTA HEART-CORONARY/ ARTERY BYPASS GRAFT WITH 3DPPAccession #: [id number] ===CTA HEART-CORONARY/ ARTERY BYPASS GRAFT WITH 3DPP [...] findings. Electronically signed by:Lola Petersen. Transcribed by: [email or web address], User Resident: PATRICA YEBOAHElectronically Signed by: LOLA PETERSEN @ 01/03/2017 12:33 PMI personally read this/these film(s) with this resident Normal [facility] Comment on above: Order Comment: R/O m alignant course of anomalous RCA Cardiovascular Lab Reporton 12-22-2016 Cardiovascular Lab Report [facility] Patient Name: Kiki Moore [facility]: [id number] Physician: Romina Robertson M.D.Department of Service Date: 12/21/2016Medicine Birthdate: 1945Division of Room #: CCCardiologyAdult CardiovascularServicesUniv [facility] Fort WorthWvtidtfGjpowx029[address] [place], [place] [address]Jrixu Fax Cardiovascular Laboratory ReportINDICATION:Kiki Moore is a 71-year-old lady, known to have history of cryptogenicstroke. She underwent investigation for the cause of the stroke, and shewas found to have a large PFO with [id number]-mn-qagr shunting. She is plannedfor a PFO closure. [...] signedthe informed consent. She was brought to cardiac cath technician in fasting state. Theright groin area was prepped and draped in usual fashion. Usingmicropuncture technique, the right common femoral artery was accessed and a5-Burkinan x 11 cm sheath was placed. Limited right femoral angiography wasperformed. Bilateral selective coronary angiography was then performed. A5-Burkinan JL4 diagnostic catheter was advanced and used to engage the leftmain coronary ostium. Angiography was performed in multiple views.Catheter was removed.Attempt at engagement of the right coronary artery with a 5-Burkinan JR4 shanon 4-Burkinan 3DRC as well as a 5-Burkinan AR modified and 5-Burkinan ZG3gwckuezhqf catheters failed. The catheters were removed. A 5-Frenchstraight pigtail catheter was advanced into the ascending aorta. Aorticroot angiography was performed in the left anterior oblique view using apower injection of contrast.The access sheath was upsized to a 6-Burkinan x 11 cm sheath. Multipleadditional catheters were used to attempt engagement of the right coronaryartery. Those were 6-Burkinan AR 2 diagnostic catheter, 6-Burkinan AR 2guiding catheter, 6-Burkinan AL 2 diagnostic catheter, and a 6-Burkinan MPA 2diagnostic catheter. Eventually, we were able to engage the right coronaryostium with a 6-Burkinan Sagar radial diagnostic catheter. Angiography wasperformed in multiple views. The catheter was removed.Heparin was administered intravenously and therapeutic ACT confirmed duringthe procedure. A 6-Burkinan XB 3.5 guiding catheter was advanced and used toengage the left main coronary ostium. A Playcez FFR wire was advanced andequalization of pressures [...] 12/21/2016/09:56 A/Romina Robertson M.D.Date Trans: 12/22/2016 06:07 [id number] c: CARMEL Aldridge [address] Vital Signs Date Time Vital Sign Value Performing Clinician Facility 02-11-2023 13:52-0400 Body temperature 98.4 [degF] PHYSICIAN NO [facility] 02-11-2023 13:52-0400 Diastolic blood pressure 74 mm[Hg] PHYSICIAN NO [facility] 02-11-2023 13:52-0400 Heart rate 67 /min PHYSICIAN NO [facility] 02-11-2023 13:52-0400 Respiratory rate 18 /min PHYSICIAN NO [facility] 02-11-2023 13:52-0400 SaO2% (BldA) [Mass fraction] 97 % PHYSICIAN NO [facility] 02-11-2023 13:52-0400 Systolic blood pressure 118 mm[Hg] PHYSICIAN NO [facility] 02-07-2023 11:47-0400 Body height 154.[address] [facility] 02-05-2023 06:09-0400 Body weight 79.[address] [facility] 12-23-2022 10:16-0400 Body height 154.9 cm Pacc 2 Work Phone: [facility] 12-23-2022 10:16-0400 Body temperature 98.1 [degF] Pacc 2 Work Phone: [facility] 12-23-2022 10:16-0400 Body weight 75.75 kg Pacc 2 Work Phone: [facility] 12-23-2022 10:16-0400 Diastolic blood pressure 53 mm[Hg] Pacc 2 Work Phone: [facility] 12-23-2022 10:16-0400 Heart rate 58 /min Pacc 2 Work Phone: [facility] 12-23-2022 10:16-0400 Respiratory rate 16 /min Pacc 2 Work Phone: [facility] 12-23-2022 10:16-0400 SaO2% (BldA) [Mass fraction] 99 % Pacc 2 Work Phone: [facility] 12-23-2022 10:16-0400 Systolic blood pressure 119 mm[Hg] Pacc 2 Work Phone: [facility] 05-18-2022 11:00-0500 Diastolic blood pressure 80 mm[Hg] Eliazar MELODY [facility] 05-18-2022 11:00-0500 Hourly Rounding Eliazar MELODY [facility] 05-18-2022 11:00-0500 Mean blood pressure 102 mm[Hg] Eliazar MELODY [facility] 05-18-2022 11:00-0500 Promise to Return Eliazar MELODY [facility] 05-18-2022 11:00-0500 Systolic blood pressure 145 mm[Hg] Eliazar MELODY [facility] 05-18-2022 10:25-0500 Hourly Rounding Eliazar MELODY [facility] 05-18-2022 10:25-0500 Promise to Return Eliazar MELODY [facility] 05-18-2022 09:28-0500 Hourly Rounding Eliazar MELODY [facility] 05-18-2022 09:28-0500 Promise to Return Eliazar MELODY [facility] 05-18-2022 09:25-0500 Diastolic blood pressure 85 mm[Hg] Eliazar MELODY [facility] 05-18-2022 09:25-0500 Systolic blood pressure 160 mm[Hg] Eliazar MELODY [facility] 05-18-2022 08:39-0500 Heart rate 86 /min Eliazarpaco GEORGESLIN [facility] 05-18-2022 08:39-0500 Respiratory rate 17 /min Eliazarpaco GEOGRESLIN [facility] 05-18-2022 08:23-0500 Heart rate 81 /min Eliazarpaco GEORGESLIN [facility] 05-18-2022 08:23-0500 SaO2% (BldA) [Mass fraction] 96 % Eliazarpaco GEORGESLIN [facility] 05-18-2022 08:23-0500 Respiratory rate 16 /min Eliazarpaco GEORGESLIN [facility] 05-18-2022 08:22-0500 Body temperature 98.24 [degF] Eliazarpaco GEORGESLIN [facility] 05-18-2022 08:22-0500 Diastolic blood pressure 85 mm[Hg] Eliazarpaco GEORGESLIN [facility] 05-18-2022 08:22-0500 Mean blood pressure 110 mm[Hg] Eliazarpaco GEORGESLIN [facility] 05-18-2022 08:22-0500 Systolic blood pressure 160 mm[Hg] Eliazarpaco GEORGESLIN [facility] 05-18-2022 08:00-0500 Blood Pressure Location Eliazarpaco GEORGESLIN [facility] 05-18-2022 00:00-0500 Body temperature 98.42 [degF] Eliazarpaco GEORGESLIN [facility] 05-18-2022 00:00-0500 Heart rate 79 /min Eliazarpaco GEORGESLIN [facility] 05-18-2022 00:00-0500 Mean blood pressure 84 mm[Hg] Eliazar GEORGESLIN [facility] 05-18-2022 00:00-0500 Respiratory rate 18 /min Eliazarpaco GEORGESLIN [facility] 05-18-2022 00:00-0500 SaO2% (BldA) [Mass fraction] 98 % Eliazarpaco GEORGESLIN [facility] 05-17-2022 21:09-0500 SaO2% (BldA) [Mass fraction] 96 % Eliazar GEORGESLIN [facility] 05-17-2022 21:08-0500 Body temperature 98.24 [degF] Eliazarpaco GEORGESLIN [facility] [facility] 21:08-0500 Mean blood pressure 89 mm[Hg] Eliazarpaco GEORGESLIN [facility] 05-17-2022 15:56-0500 Body temperature 98.24 [degF] Eliazarpaco GEORGESLIN [facility] 05-17-2022 15:56-0500 Mean blood pressure 77 mm[Hg] Eliazar GEORGESLIN [facility] 05-17-2022 10:24-0500 Heart rate 70 /min Eliazar GEORGESLIN [facility] 05-17-2022 00:00-0500 Body temperature 97.88 [degF] Eliazarpaco GEORGESLIN [facility] 05-16-2022 19:00-0500 Body temperature 98.6 [degF] Eliazarpaco GEORGESLIN [facility] 05-16-2022 11:00-0500 Blood Pressure Location Eliazarpaco GEORGESLIN [facility] 05-16-2022 11:00-0500 Mean blood pressure 101 mm[Hg] Eliazar OLIVER [facility] 05-15-2022 16:00-0500 Blood Pressure Location Eliazar OLIVER [facility] 05-15-2022 00:05-0500 Heart rate 77 /min Eliazar OLIVER [facility] 05-14-2022 23:45-0500 Heart rate 80 /min Eliazar OLIVER [facility] 02-05-2022 01:29-0400 Diastolic blood pressure 77 mm[Hg] Kaylinn Dokken [facility] 02-05-2022 01:29-0400 Heart rate 75 /min Kaylinn Dokken [facility] 02-05-2022 01:29-0400 Respiratory rate 16 /min Kaylinn Dokken [facility] 02-05-2022 01:29-0400 SaO2% (BldA) [Mass fraction] 96 % Kaylinn Dokken [facility] 02-05-2022 01:29-0400 Systolic blood pressure 124 mm[Hg] Kaylinn Dokken [facility] 02-04-2022 23:36-0400 Body temperature 99.5 [degF] Kaylinn Dokken [facility] 02-04-2022 23:36-0400 Diastolic blood pressure 82 mm[Hg] Kaylinn Dokken [facility] 02-04-2022 23:36-0400 Heart rate 89 /min Kaylinn Dokken [facility] 02-04-2022 23:36-0400 Respiratory rate 16 /min Brady Linn [facility] 02-04-2022 23:36-0400 SaO2% (BldA) [Mass fraction] 96 % Brady Linn [facility] 02-04-2022 23:36-0400 Systolic blood pressure 146 mm[Hg] Brady Linn [facility] 09-21-2021 14:00-0400 Mean blood pressure 77 mm[Hg] Raffy Crowley [facility] 09-21-2021 14:00-0400 SaO2% (BldA) [Mass fraction] 96 % Raffy Crowley [facility] 09-21-2021 14:00-0400 Systolic blood pressure 110 mm[Hg] Raffy Blume [facility] 09-21-2021 13:45-0400 Diastolic blood pressure 65 mm[Hg] Raffy Crowley [facility] 09-21-2021 13:45-0400 Heart rate 68 /min Raffy Crowley [facility] 09-21-2021 13:45-0400 Mean blood pressure 83 mm[Hg] Raffy Blume [facility] 09-21-2021 13:45-0400 Respiratory rate 16 /min Raffy Crowley [facility] 09-21-2021 13:45-0400 SaO2% (BldA) [Mass fraction] 97 % Raffy Crowley [facility] 09-21-2021 13:45-0400 Systolic blood pressure 119 mm[Hg] Raffy Crowley [facility] 09-21-2021 13:33-0400 Body temperature 98.42 [degF] Raffy Crowley [facility] 09-21-2021 13:33-0400 Diastolic blood pressure 61 mm[Hg] Raffy Crowley [facility] 09-21-2021 13:33-0400 Heart rate 72 /min Raffy Crowley [facility] 09-21-2021 13:33-0400 Respiratory rate 18 /min Raffy Crowley [facility] 09-21-2021 13:33-0400 SaO2% (BldA) [Mass fraction] 98 % Raffy Crowley [facility] 09-21-2021 13:33-0400 Systolic blood pressure 135 mm[Hg] Raffy Crowley [facility] 09-21-2021 13:05-0400 Diastolic blood pressure 50 mm[Hg] Julianne Aguilarmetz [facility] 09-21-2021 13:05-0400 Mean blood pressure 64 mm[Hg] Julianneelfego AguilarMaykel [facility] 09-21-2021 13:05-0400 Systolic blood pressure 92 mm[Hg] Julianne Maykel [facility] 09-21-2021 12:55-0400 Blood Pressure Location Julianne Maykel [facility] 09-21-2021 12:55-0400 Body temperature 97.7 [degF] Julianneelfego AguilarMaykel [facility] 09-21-2021 12:55-0400 Diastolic blood pressure 58 mm[Hg] Julianne Morrellz [facility] 09-21-2021 12:55-0400 Heart rate 67 /min Julianne Brar [facility] 09-21-2021 12:55-0400 SaO2% (BldA) [Mass fraction] 97 % Julianne Brar [facility] 09-21-2021 12:55-0400 Systolic blood pressure 89 mm[Hg] Julianne Brar [facility] 09-03-2021 09:50-0400 Diastolic blood pressure 63 mm[Hg] Piedra SALAM [facility] 09-03-2021 09:50-0400 Heart rate 68 /min Piedra SALAM [facility] 09-03-2021 09:50-0400 Respiratory rate 21 /min Piedra SALAM [facility] 09-03-2021 09:50-0400 SaO2% (BldA) [Mass fraction] 97 % Piedra SALAM [facility] 09-03-2021 09:50-0400 Systolic blood pressure 116 mm[Hg] Piedra SALAM [facility] 09-03-2021 09:35-0400 Diastolic blood pressure 51 mm[Hg] Piedra SALAM [facility] 09-03-2021 09:35-0400 Heart rate 70 /min Piedra SALAM [facility] 09-03-2021 09:35-0400 Respiratory rate 18 /min Piedra SALAM [facility] 09-03-2021 09:35-0400 SaO2% (BldA) [Mass fraction] 97 % Piedra SALAM [facility] 09-03-2021 09:35-0400 Systolic blood pressure 99 mm[Hg] Piedra SALAM [facility] 09-03-2021 09:30-0400 Diastolic blood pressure 51 mm[Hg] Piedra SALAM [facility] 09-03-2021 09:30-0400 Heart rate 68 /min Piedra SALAM [facility] 09-03-2021 09:30-0400 Respiratory rate 16 /min Piedra SALAM [facility] 09-03-2021 09:30-0400 SaO2% (BldA) [Mass fraction] 94 % Piedra SALAM [facility] 09-03-2021 09:30-0400 Systolic blood pressure 99 mm[Hg] Piedra SALAM [facility] 09-03-2021 09:24-0400 Body temperature 97.34 [degF] Piedra SALAM [facility] 09-03-2021 09:20-0400 Respiratory rate 15 /min Piedra SALAM [facility] 09-03-2021 09:15-0400 Respiratory rate 14 /min Piedra SALAM [facility] 09-03-2021 09:10-0400 Respiratory rate 18 /min Piedra SALAM [facility] 09-03-2021 07:57-0400 Blood Pressure Location Tadeo CARBAJAL [facility] 09-03-2021 07:57-0400 Body temperature 97.7 [degF] Piedrahansel CARBAJAL [facility] Encounters Encounter Date Encounter Type Care Provider Facility Start: 08-16-2023 End: 08-16-2023 ambulatory CINDA CORONEL Facility:[facility] Start: 07-07-2023 ambulatory LEONEL AGUIRRE [facility] Start: 07-05-2023 Bamboo flowsheet Aury Freeman hler DO Work Phone: [facility] Start: 07-05-2023 Bamboo flowsheet Aury Freeman hler DO Work Phone: [facility] Start: 07-05-2023 End: 07-05-2023 ambulatory AURY BASS Not Available Start: 04-17-2023 End: 04-17-2023 ambulatory SHAN BOX Facility:[facility] Start: 04-17-2023 End: 04-17-2023 Patient encounter procedure Shan Box MD Work Phone: Orthopaedics Comment on above: S/P total knee repla cement, left (Primary Dx) Start: 04-05-2023 End: 04-05-2023 ambulatory Leonel Aguirre Facility:[facility] Start: 04-05-2023 End: 04-05-2023 ambulatory PHYSICIAN CORY [facility] Work Phone: Start: 04-05-2023 End: 04-05-2023 Patient encounter procedure PHYSICIAN CORY [facility] [address] Work Phone: Start: 03-06-2023 End: 03-06-2023 ambulatory SHAN BOX Facility:[facility] Start: 03-06-2023 End: 03-06-2023 Patient encounter procedure Shan Box MD Work Phone: Orthopaedics Comment on above: S/P total knee repla cement, left (01/17/2023) (Primary Dx) Start: 02-10-2023 End: 02-10-2023 ambulatory CINDA CORONEL Facility:[facility] Start: 01-31-2023 End: 02-11-2023 Evaluation and management of inpatient Syd Muir Facility:[facility] Start: 01-31-2023 End: 02-11-2023 Evaluation and management of inpatient PHYSICIAN CORY DILLON [facility] Work Phone: Start: 01-17-2023 End: 01-19-2023 ambulatory SHAN BOX Facility:[facility] Start: 12-30-2022 End: 12-31-2022 ambulatory CINDA CORONEL Facility:[facility] Start: 12-30-2022 Encounter for other preprocedural examination CINDA CORONEL [facility] Start: 12-23-2022 Encounter for other preprocedural examination CINDA CORONEL [facility] Start: 12-23-2022 End: 12-24-2022 ambulatory CINDA CORONEL Facility:[facility] Start: 12-23-2022 End: 12-23-2022 Admission to establishment Pacc Cloud 2 Work Phone: [facility] Start: 12-23-2022 End: 12-23-2022 ambulatory Pacc [employer] 2 Work Phone: Pre Anesthesia Comment on [...] Start: 12-23-2022 End: 12-23-2022 Preprocedural examination done Pacc Cloud 2 Work Phone: [facility] Work Phone: Start: 12-14-2022 End: 12-14-2022 ambulatory SHAN BOX Facility:[facility] Start: 11-21-2022 End: 11-22-2022 Orders Only Shan Box MD Work Phone: Orthopaedics Comment on above: Primary osteoarthrit is of left knee (Primary Dx) Start: 11-21-2022 End: 11-21-2022 Patient encounter procedure COOKIE QUIROZ [facility] Start: 11-15-2022 End: 11-16-2022 ambulatory Cinda CORONEL [facility] Start: 11-15-2022 End: 11-15-2022 Patient encounter procedure Cinda CORONEL [facility] Start: 11-09-2022 End: 11-09-2022 ambulatory [facility] Start: 10-26-2022 End: 10-26-2022 ambulatory Sanna Alma [...] End: 06-28-2022 Patient encounter procedure COOKIE QUIROZ [facility] Start: 06-02-2022 End: 06-02-2022 Patient encounter procedure Cinda CORONEL [facility] Start: 05-14-2022 End: 05-18-2022 Evaluation and management of inpatient Eliazar OLIVER [facility] Start: 04-27-2022 End: 04-27-2022 ambulatory Leonel Aguirre Facility:[facility] Start: 04-27-2022 End: 04-27-2022 ambulatory MD Leonel Aguirre Work Phone: [facility] Work Phone: Start: 04-27-2022 End: 04-27-2022 Patient encounter procedure MD Leonel Aguirre Work Phone: [facility] [address] Start: 04-22-2022 End: 04-22-2022 Patient encounter procedure ALEXANDER TREVIÑO [facility] Start: 04-12-2022 End: 04-12-2022 Patient encounter procedure LEONEL AGUIRRE [facility] Start: 02-04-2022 End: 02-05-2022 Emergency department patient visit Brady Linn [facility] Start: 01-28-2022 End: 10-23-2022 Recurring LEONEL AGUIRRE [facility] Start: 12-23-2021 End: 12-23-2021 Patient encounter procedure MD Leonel Aguirre Work Phone: [facility] [address] Start: 10-28-2021 End: 10-28-2021 Patient encounter procedure Connor Benítez [facility] Start: 09-21-2021 End: 09-21-2021 Emergency department patient visit Raffy Crowley [facility] Start: 09-21-2021 End: 09-21-2021 Patient encounter procedure Julianne Brar [facility] Start: 09-03-2021 End: 09-03-2021 Patient encounter procedure Tadeo CARBAJAL [facility] Start: 04-15-2021 ambulatory RICCO MOSER Facility:[facility] Start: 03-31-2021 End: 04-01-[address] DOCTOR POLLACK Facility:[facility] Start: 09-05-2017 End: 09-06-2017 Patient encounter DEFAULT PHYSICIAN Facility:[facility] Start: 02-14-2017 End: 02-15-2017 Patient encounter DEFAULT PHYSICIAN Facility:[facility] Start: 01-18-2017 End: 01-19-2017 Patient encounter PROVIDER UNKNOWN Facility:[facility] Start: 12-30-2016 End: 12-31-2016 Patient encounter PROVIDER UNKNOWN Facility:[facility] Start: 12-21-2016 End: 12-22-2016 Patient encounter PROVIDER UNKNOWN Facility:[facility] Start: 03-04-2015 End: 03-04-2015 Telephone encounter Juliana Pruitt (Rn) (Hist) Justin BERG [facility] Qualilty Management Comment on above: Surgical Followup [...] now? 2 Result Comment: PERF ORMED BY: [facility] [address] [place] [address] PATHOLOGIST WIRE MILL OPERATOR KWADWO PULIDO M.D. Start: 02-01-2023 Radiologic examination of knee PHYSICIAN NO FAMILY Start: 01-31-2023 Duplex scan of lower limb veins PHYSICIA N NO FAMILY Start: 12-23-2022 Antibody screen CINDA CORONEL Comment on above: Order Comment: Specimen Type: BLOOD SPEC IMENOrdering Facility: [facility] Address: [address] [place] [address] Performed By: #### T [id number] ####CC MAIN BLOOD BANKCLIA [id number] [facility] [id number] [facility] Start: 10-26-2022 Iadna s aureus amplified probe tq Bob Box MD Work Phone: Start: 12-23-2021 Plain X-ray of bilateral hands MD Leonel Aguirre Work Phone: Start: 12-23-2021 Plain X-ray of bilateral wrists MD Aly Aguirre Work Phone: Start: 09-03-2021 Colonoscopy Triptrotting Comment on above: diverticulosis, moderate IH Start: 09-08-2020 Repair of incisional hernia Triptrotting Start: 05-17-2019 Repair of umbilical hernia Piedra Eventpig Comment on above: UMBILICAL HERNIA REPAIR ADULT Start: 01-22-2019 Cholecystectomy Piedra Eventpig Start: 11-14-2018 Amputation of toe Piedra Eventpig Comment on above: Left second toe amputation and left thir d digit proximal interphalangeal J joint arthrodesis with 0.045 K-wire Start: 02-06-2016 Esophagogastroduodenoscopy Piedra Eventpig Start: 03-16-2010 left RTC repair Piedra Eventpig Start: 10-06-2006 H/O: artificial joint Knee joint replacement by other means Juliana Anderson RN Arthroplasty of knee Tadeo GAGE section Tadeo CARBAJAL Dilation and curettage Piedra SALAM Herniated Disc Surgery Piedra SALODILIA History of operative procedure on knee Status post bilateral knee replacements Shan Box MD Work Phone: left hip replacement Tadeo GAGE lumbar discectomy 4 Tadeo BARGER Comment on above: 20 years ago, and 21 years ago Prosthetic arthroplasty of the hip Tadeo CARBAJAL Right Hip Revision Tadeo RIOS AM Plan of Treatment Date Care Activity Detail Author Start: 01-18-2026 Diabetes Screening Diabetes Screenin g [facility] Start: 12-24-2023 BP CONTROLLED (<130/80) BP CONTROLLE D (<130/80) [facility] Start: 02-11-2023 [facility] Start: 01-31-2023 Hospital admission [facility] Start: 01-31-2023 Referral to clinical rake operator [facility] Start: 01-31-2023 [facility] Start: 01-20-2023 Influenza vaccination C [facility] Start: 12-20-2022 End: 02-19-2023 Bacteria identified in Urine by Culture URINE CULTURE Microbiology Routine Pre-op testing Expected: 12/20/2022 (Approximate), Expires: 02/19/2023 [facility] Work Phone: Comment on above: Expected: 12/20/2022 (Approximate), Expires: 02/19/2023 Start: 12-20-2022 End: 02-19-2023 TYPE AND SCREEN,30 DAY TYPE AND SCREEN,30 DAY Blood Bank Routine Pre-op testing Expected: 12/20/2022 (Approximate), Expires: 02/19/2023 [facility] Work Phone: Comment on above: Expected: 12/20/2022 (Approximate), Expires: 02/19/2023 Start: 10-27-2022 End: 12-27-2022 Basic metabolic 2000 panel - Serum or Plasma BASIC METABOLIC PNL Lab Routine Pre-op testing Expected: 10/27/2022, Expires: 12/27/2022 [facility] Work Phone: Comment on above: Expected: 10/27/2022 , Expires: 12/27/2022 Start: 10-27-2022 End: 12-27-2022 CBC W Auto Differential panel - Blood CBC + DIFF Lab Routine Pre-op testing Expected: 10/27/2022, Expires: 12/27/2022 [facility] Work Phone: Comment on above: Expected: 10/27/2022 , Expires: 12/27/2022 Start: 10-27-2022 End: 12-27-2022 Hemoglobin A1c in Blood HGB A1C Lab Routine Pre-op testing Expected: 10/27/2022, Expires: 12/27/2022 [facility] Work Phone: Comment on above: Expected: 10/27/2022 , Expires: 12/27/2022 Start: 10-27-2022 End: 12-27-2022 Urinalysis complete panel - Urine URINALYSIS, WITH MICROSCOPIC Lab Routine Pre-op testing Expected: 10/27/2022, Expires: 12/27/2022 [facility] Work Phone: Comment on above: Expected: 10/27/2022 , Expires: 12/27/2022 Start: 05-22-2022 ADVANCE DIRECTIVE DISCUSSION ADVANCE DIRECTIVE DISCUSSION [facility] Start: 05-22-2022 DEPRESSION ASSESSMENT DEPRESSION ASS ESSMENT [facility] Start: 04-27-2022 [facility] Start: 02-05-2021 COVID-19 VACCINE (3 - Mixed Product series) COVID-19 VACCINE (3 - Mixed Product series) [facility] Start: 01-20-2021 Influenza vaccination INFLUENZ A (Season Ended) [facility] Start: 01-08-2021 Covid-19 Vaccine (3 - Mixed Product risk series) Covid-19 Vaccine (3 - Mixed Product risk series) [facility] Start: 02-27-2018 DIABET[facility]CREEN [facility] Start: 02-27-2016 PNEUMOCOCCAL: 65+ (2 - PCV) PNEUMOCOCCAL: 65+ (2 - PCV) [facility] Start: 2011 ADVANCE DIRECTIVE DISCUSSION ADVANCE DIRECTIVE DISCUSSION [facility] Start: 2011 BONE DENSITY BONE DENSITY [facility] Start: 2011 Bone Density Screening Bone Density Screening [facility] Start: 2006 RSV Vaccine (1 - 1-d ose 60+ series) RSV Vaccine (1 - 1-dose 60+ series) [facility] Start: 01-02-1996 Screening for malign ant neoplasm of colon [facility] Start: 01-02-1996 SHINGRIX VACCINE (1 of 2) SHINGRIX VACCINE (1 of 2) [facility] Start: 1991 LIPID SCREEN LIPID SCREEN [facility] Start: 1986 Mammography MAMMOGRAM [facility] Start: 1965 SHINGRIX VACCINE (1 of 2) SHINGRIX VACCINE (1 of 2) [facility] Start: 1965 Urine microalbumin profile [facility] Start: 01-02-1964 ANNUAL PCP TEAM CIVIL ENGINEERING PROJECT DESIGNER LILLIAN DISEASE VISIT ANNUAL PCP TEAM CHRONIC DISEASE VISIT [facility] Start: 01-02-1964 HEPATITIS C SCREENING HEPATITIS C SC REETED [facility] Start: 1958 Adult depression screening assessment DEPRESSION SCREENING [facility] Start: 1946 COVID-19 VACCINE (#1) COVID-19 VACCI NE (#1) [facility] Start: 1946 Medicare Annual Wellness (AWV) Medicare Annual Wellness (AWV) [place] [facility] Alkaline phosphatase - bone isoenzyme measurement [facility] Work Phone: Alkaline phosphatase [Enzymatic activity/volume] in Serum or Plasma [facility] Work Phone: Alkaline phosphatase isoenz panel - Serum or Plasma [facility] Work Phone: Intestinal alkaline phosphatase measurement [facility] Work Phone: Patient Education Total Knee Rep lacement (DC) [facility] Work Phone: Patient referral [facility] Work Phone: End: 05-05-2024 XR KNEE POST OP 3V AP/LAT/MERCHANT LEFT XR KNEE POST OP 3V AP/LAT/MERCHANT LEFT Radiology Routine S/P total knee replacement, left 1 Occurrences starting 04/06/2023 until 05/05/2024 [facility] Work Phone: Comment on above: 1 Occurrences starti ng 04/06/2023 until 05/05/2024 XR KNEE POST OP 3V AP/LAT/MERCHANT LEFT XR KNEE POST OP 3V AP/LAT/MERCHANT LEFT Radiology Routine S/P total knee replacement, left 04/17/2023 8:50 AM EST [facility] Work Phone: [facility] OR [facility] Immunizations Immunization Date Immunization Notes Care Provider Fa [facility] 03-31-2022 influenza (HD-IIV4) vaccine, age 65+ yr, high dose, quadrivalent, PF (FLUZONE HIGH-DOSE) [facility] 2 Work Phone: [facility] 03-31-2022 pneumococcal (PCV20) vaccine, 20 valent (PREVNAR 20) Pac 2 Work Phone: [facility] 03-31-2022 influenza virus vacc ine, unspecified formulation hSan Box MD Work Phone: [facility] 03-08-2021 influenza (HD-IIV4) vaccine, age 65+ yr, high dose, quadrivalent, PF (FLUZONE HIGH-DOSE) Pac 2 Work Phone: [facility] 12-11-2020 COVID-19 vaccine, unspecified formulation Pac 2 Work Phone: [facility] 11-13-2020 COVID-19 vaccine, unspecified formulation Pac 2 Work Phone: [facility] 02-24-2020 influenza (aIIV4) vaccine, age 65+ yr, quadrivalent, PF (FLUAD QUAD) Pac 2 Work Phone: [facility] 07-12-2019 zoster vaccine recombinant Pacc 2 Work Phone: [facility] 04-26-2019 pneumococcal conjuga te vaccine, 13 valent Piedra SALAM [facility] 04-10-2019 zoster vaccine recombinant Pacc 2 Work Phone: [facility] 03-08-2019 influenza, high dose seasonal, preservative-free Pacc 2 Work Phone: [facility] 02-23-2018 influenza, high dose seasonal, preservative-free Pacc 2 Work Phone: [facility] 02-27-2017 influenza, injectabl e, quadrivalent, preservative free Pacc 2 Work Phone: [facility] 02-22-2017 influenza, high dose seasonal, preservative-free Pacc 2 Work Phone: [facility] 05-09-2016 influenza, high dose seasonal, preservative-free Pacc 2 Work Phone: [facility] 03-18-2016 influenza, high dose seasonal, preservative-free Pacc 2 Work Phone: [facility] 03-07-2016 pneumococcal conjuga te vaccine, 13 valent Piedra SALAM [facility] 07-06-2015 pneumococcal polysaccharide vaccine, 23 valent Pacc 2 Work Phone: [facility] 02-26-2015 influenza, high dose seasonal, preservative-free Juliana Anderson RN [facility] 02-26-2015 pneumococcal polysaccharide vaccine, 23 valent Juliana Justin RN [facility] 01-07-2015 pneumococcal conjuga te vaccine, 7 valent Pacc 2 Work Phone: [facility] 03-04-2014 influenza, seasonal, injectable Juliana nAderson RN [facility] 03-31-2005 pneumococcal polysaccharide vaccine, 23 valent Piedra SALAM [facility] Payers Date Payer Category Payer Medicare [id number] 2020 Medicare [employer] [employer] MED[facility] ADVANTAGE [id number] 2020-Present [address] [place] [address] [id number] 2020 Unknown 2010 Medicare [id number] 1959 Self-pay 1958 Unknown [id number] 1945 Unknown [id number] 1945 Unknown [id number] 1945 Unknown [id number] 9 1945 Unknown [id number] 1945 Unknown [id number] 1945 Unknown [id number] Unknown [id number] Unknown [id number] Unknown [id number] [id number] Unknown [id number] Social History Date Type Detail Facility Start: 02-02-2015 End: 10-31-2022 Tobacco smoking status MNIS Never smoker [facility] Start: 02-02-2015 End: 10-31-2022 Tobacco use and exposure Never used [facility] Start: 02-02-2015 End: 04-17-2023 Alcohol intake Current non-drinker of alcohol (finding) [facility] Start: 1945 Sex Assigned At Not on file [facility] Tobacco smoking status Never [facility] Start: 12-23-2022 End: 01-12-2023 Sex Assigned At Female [facility] Comment on above: pt denies Start: 1945 Sex Assigned At Female F [facility] Tobacco smoking status No Smokin g Status Entered [facility] Start: 12-23-2022 End: 01-12-2023 History of Social function [facility] (I/We) worried whebonita er (my/our) food would run out before (I/we) got money to buy more. Never true [facility] In the past 12 month s, was there a time when you were not able to pay the mortgage or rent on time? No [facility] Start: 01-12-2023 Alcohol intake Ex-drinker (finding) [facility] Medical Equipment Procedure Code Equipment Code Equipment Origin al Text Equipment Identifier Dates Asv-Hx-U-Kind Implant - [id number] Start: 02-24-2015 Comment on above: Description: G7 ACET ABULAR LINER Xkl-Zu-R-Kind Implant - [id number] Start: 02-24-2015 Comment on above: Description: acetabu lar shell 3 hole Ecq-Wx-E-Kind Implant - [id number] Start: 02-24-2015 Comment on above: Description: HEALIX ADVANCED SUTURE ANCHOR Mqj-In-F-Kind Implant - [id number] Start: 02-24-2015 Comment on above: Description: Healix advance BR 3 suture anchor w permacord Liner Actb Drlc 10d 50mm 28mm - [id number] Start: 06-25-2014 Comment on above: Description: duraloc marathon acetabular liner Ring Actb 50mm Drlc Dyn Hip - [id number] Start: 06-25-2014 Comment on above: Description: dynamic locking ring/duraloc Head Fem +8.5mm 12/14 28mm Hip - [id number] Start: 06-25-2014 Comment on above: Description: articul karon femoral head Stem Fem 142mm Type 1 Complt - [id number] Start: 02-24-2015 Comment on above: Description: coated stem high offset Head Fem -3mm 36 mm Hip No Skrt - [id number] Start: 02-24-2015 Comment on above: Description: modular head 36mm -3 neck {01}[id number] FDA Start: 05-17-2019 FDA Start: 07-11-2016 [...] conditional. Cond itions scanned into chart.REF # [id number] ID #[id number] Unknown Unknown 07/11/16 Non Biological Chest FDA Start: 07-11-2016 Comment on above: MR Conditional. Cond itions scanned into patient's chart. Unknown Unknown 01/18/17 Non Biological Chest FDA Start: 01-18-2017 Comment on above: MR conditional. Cond itions scanned into chart.REF # [id number] ID #[id number] Unknown Unknown 07/11/16 Non Biological Chest FDA Start: 07-11-2016 Comment on above: MR Conditional. Cond itions scanned into patient's chart. Unknown Unknown 01/18/17 Non Biological Chest FDA Start: 01-18-2017 Comment on above: MR conditional. Cond itions scanned into chart.REF # [id number] ID #[id number] Unknown Unknown 07/11/16 Non Biological Chest FDA Start: 07-11-2016 Comment on above: MR Conditional. Cond itions scanned into patient's chart. Unknown Unknown 01/18/17 Non Biological Chest FDA Start: 01-18-2017 Comment on above: MR conditional. Cond itions scanned into chart.REF # [id number] ID #[id number] Unknown Unknown 07/11/16 Non Biological Chest FDA Start: 07-11-2016 Comment on above: MR Conditional. Cond itions scanned into patient's chart. Unknown Unknown 01/18/17 Non Biological Chest FDA Start: 01-18-2017 Comment on above: MR conditional. Cond itions scanned into chart.REF # [id number] ID #[id number] Unknown Unknown 07/11/16 Non Biological Chest FDA Start: 07-11-2016 Comment on above: MR Conditional. Cond itions scanned into patient's chart. Unknown Unknown 01/18/17 Non Biological Chest FDA Start: 01-18-2017 Comment on above: MR conditional. Cond itions scanned into chart.REF # [id number] ID #[id number] Unknown Unknown 07/11/16 Non Biological Chest FDA Start: 07-11-2016 Comment on above: MR Conditional. Cond itions scanned into patient's chart. Unknown Unknown 01/18/17 Non Biological Chest FDA Start: 01-18-2017 Comment on above: MR conditional. Cond itions scanned into chart.REF # [id number] ID #[id number] Unknown Unknown 07/11/16 Non Biological Chest FDA Start: 07-11-2016 Comment on above: MR Conditional. Cond itions scanned into patient's chart. Unknown Unknown 01/18/17 Non Biological Chest FDA Start: 01-18-2017 Comment on above: MR conditional. Cond itions scanned into chart.REF # [id number] ID #[id number] Unknown Unknown 07/11/16 Non Biological Chest FDA Start: 07-11-2016 Comment on above: MR Conditional. Cond itions scanned into patient's chart. Unknown Unknown 01/18/17 Non Biological Chest FDA Start: 01-18-2017 Comment on above: MR conditional. Cond itions scanned into chart.REF # [id number] ID #[id number] Unknown Unknown 07/11/16 Non Biological Chest FDA Start: 07-11-2016 Comment on above: MR Conditional. Cond itions scanned into patient's chart. Unknown Unknown 01/18/17 Non Biological Chest FDA Start: 01-18-2017 Comment on above: MR conditional. Iván osorio scanned into chart.REF # [id number] ID #[id number] Cement Simplex Bone High Viscosity - [id number] Start: 01-17-2023 Insert Triathlon 3 9mm Tibial Total Stabilizer Plus Sterile Knee - [id number] Start: 01-17-2023 Component Triathlon 3 Femoral Cemented Posterior Stabilize Knee Left - [id number] Start: 01-17-2023 Baseplate Triathlon 3 Suches Cocr Tibial Total Stabilize Cemented Knee - [id number] Start: 01-17-2023 Goals Date Patient Goal Desired Activity /State Functional Status Date Assessment Result Facility 02-11-2023 Functional status Patient is Pro gressing Toward [facility] Work Phone: 01-31-2023 Functional status Disability Sta tus Patient Not at [facility] Work Phone: 05-15-2022 Functional Status No [facility] 05-14-2022 Functional Status [facility] 02-04-2022 Functional Status N/A [facility] Mental Status Date Assessment Result Facility 02-11-2023 Cognitive function Cognitive Sta tus Patient at [facility] Work Phone: Clinical Notes 03-26-2015 to 08-16-2023 Note Date & Type Note Facility 08-16-2023 Note HNO ID: [id number] Author: SHAN BOX MD Service: ? Author Type: Physician Type: Progress Notes Filed: 08/16/2023 14:43 Note Text: see dictated note Shan Box II, MD [facility] 08-16-2023 Note HNO ID: [id number] Author: SHAN BOX MD Service: Orthopaedic Surgery Author Type: Physician Type: Progress Notes Filed: 08/17/2023 16:42 Note Text: [facility] [address] [place] [address] CLINIC NOTE Department of Orthopaedics - Donnell Box II, M.D. NAME: KIKI MOORE [facility] NO.: [id number] DATE OF SERVICE: 08/16/2023 Left TKR, 01/17/2023 - 7 months. Right TKR, 08/19/1997. Revision of right TKR 09/12/2006. The patient is doing quite well with her most recent knee, which is now 7 months postoperative. She states that 1 month ago quote noise along the outside of some soreness and tightness, but does not seem to stop her. PE: Has good healing of the incision area. Calf is soft, nontender. Motion is 0 to 120 degrees. Neurovascularly intact. X-rays today show good overall alignment of the left total knee replacement. See back at 1 year. Dictated By: Shan Box II, M.D. Date Dictated: 08/16/2023 Date Typed: [facility] 08/16/2023 JOB# [id number] [facility] 04-17-2023 Note HNO ID: [id number] Author: Shan Box MD Service: Orthopaedic Surgery Author Type: Physician Type: Progress Notes Filed: 04/18/2023 10:13 AM Note Text: [facility] [address] [facility] [place] [address] CLINIC NOTE Department of Orthopaedics - Donnell Box II, M.D. NAME: KIKI MOORE [facility] NO.: [id number] DATE OF SERVICE: 04/17/2023 Recheck of left [...] II, M.D. Date Dictated: 04/17/2023 Date Typed: [facility] 04/17/2023 JOB# [id number] [facility] 04-17-2023 Note HNO ID: [id number] Author: Karla Vargas RT(R) Service: ? Author [...] RT Jarad(R) April 17, 2023 8:50 AM [facility] 03-06-2023 Note HNO ID: [id number] Author: Shan Box MD Service: Orthopaedic Surgery Author Type: Physician Type: Progress Notes Filed: 03/07/2023 11:14 AM Note Text: [facility] [address] [place] [address] CLINIC NOTE Department of Orthopaedics - Donnell Box II, M.D. NAME: KIKI MOORE [facility] NO.: [id number] DATE OF SERVICE: 03/06/2023 CHIEF COMPLAINT: Recheck [...] II, M.D. Date Dictated: 03/06/2023 Date Typed: [facility] 03/06/2023 JOB# [id number] [facility] 02-11-2023 Progress note Note Date/Time February 10, 2023 4:28pm [facility] [address] [place] [address] Hospitalist Progress Note Signed Patient: Kiki Moore MR#: [id number] : 1945 Acct:[id number] Age/Sex: 78 / F Adm Date: 3 Loc: Room: [address] [place] [address] Type: ADM IN Attending Dr: Syd Muir [...] mg 01/31/23 14:12 Bisacodyl 10 Mg Supp.Rect MA 01/31/24 14:11 DAILY PRN Constipation Brimonidine Tartrate 1 drops 02/01/23 09:00 02/10/23 07:50 Brimonidine 0.15% Op Soln 100 Drops/5 Ml Drops EYE-BOTH 02/01/24 08:59 1 drops DAILY BERTRAND Administration Diclofenac Sodium 2 gm 02/08/23 14:00 02/10/23 13:58 Diclofenac Sodium 1% Gel 50 Gm Tube TOPICAL 02/08/24 13:59 Not Given TID BERTRAND Docusate Sodium 283 mg 01/31/23 14:12 Docusate Enema 283 Mg/5 Ml Enema MA 01/31/24 14:11 DAILY PRN Constipation Docusate Sodium [...] Chronic hyponatremia: Plan Knee replacement 01/17/2023 at [facility] Postoperative anemia -Further POC per PMR team for rehabilitative therapy postop, pain control bowel regimen, DVT PPx, surgical wound care -Please address any questions/concerns postoperatively to [facility] orthopedic team -Completed Levaquin on 02/05/2023, continue [...] signed by Hussein Hung DO> 02/11/23 0714 [facility] Work Phone: 1(518) 817-132809-22-2023 Progress note Author Syd Muir [facility] February 10, 2023 2:47pm Note Date/Time February 10, 2023 2:47pm [facility] [address] [place] [address] Physiatry(Rehab) Progress Note Signed Patient: Kiki Moore MR#: [id number] : 1945 Acct:[id number] Age/Sex: 78 / F Adm Date: 3 Loc: Room: 7G1720-1 Type: ADM IN Attending Dr: Syd Muir MD Copies to: ~ Date of Service: 02/10/2023 Subjective Subjective Narrative: Ms. Moore is a 78 year old female presenting to acute rehab as a transfer from [facility]. Her past medical history is notable [...] left total knee on 01/17/2023 at the [facility]. Placed on Xarelto for DVT prophylaxis postop. [...] mg 01/31/23 14:12 Bisacodyl 10 Mg Supp.Rect MA 01/31/24 14:11 DAILY PRN Constipation Brimonidine Tartrate 1 drops 02/01/23 09:00 02/10/23 07:50 Brimonidine 0.15% Op Soln 100 Drops/5 Ml Drops EYE-BOTH 02/01/24 08:59 1 drops DAILY BERTRAND Administration Diclofenac Sodium 2 gm 02/08/23 14:00 02/10/23 13:58 Diclofenac Sodium 1% Gel 50 Gm Tube TOPICAL 02/08/24 13:59 Not Given TID BERTRAND Docusate Sodium 283 mg 01/31/23 14:12 Docusate Enema 283 Mg/5 Ml Enema MA 01/31/24 14:11 DAILY PRN Constipation Docusate Sodium [...] arthroplasty on 01/17/2023. Initially admitted to a nursing home facility but failed to improve functionally and [...] equipment to enhance the patient's a functional caodaism Ensure adequate nutrition and hydration Sleep: No concerns Pain: Continue current regimen Discharge planning: Home in AM. I spent greater than 25 minutes for services, including bmie-ab-yuze encounter with the patient, discussion of the case, plan of care, and exam; and ynmiewu-la-pwlq activities, such as reviewing pertinent splunk consultant documentation, recent therapy notes, laboratory and radiology studies, and discussion of case with care team including physician, nursing, gearcase assembler, and therapists. More than 50 % of time was spent on patient/family counseling or coordination ofcare. Documented By: Syd Muir MD 02/10/231444 Signed By: <Electronically signed by Syd Muir MD> 02/10/231446 [facility] Work Phone: 1(883) 365-458309-22-2023 Progress note Author Syd Muir [facility] February 10, 2023 11:17am Note Date/Time February 09, 2023 2:00pm [facility] [address] [place] [address] Physiatry(Rehab) Progress Note Signed Patient: Kiki Moore MR#: [id number] : 1945 Acct:[id number] Age/Sex: 78 / F Adm Date: 3 Loc: Room: [address] [place] [address] Type: ADM IN Attending Dr: Syd Muir MD Copies to: ~ <Sofya Petit APRN - Last Filed: 02/09/23 14:08> Date of Service: 02/09/2023 Subjective <Sofya Petit APRN - Last Filed: 02/09/23 14:08> Subjective Narrative: Ms. Moore is a 78 year old female presenting to acute rehab as a transfer from [facility]. Her past medical history is notable [...] left total knee on 01/17/2023 at the [facility]. Placed on Xarelto for DVT prophylaxis postop. [...] and affect appropriate. Normal speech. Objective <Sofya Petit APRN - Last Filed: 02/09/23 14:08> Labs 02/07/23 [...] mg 01/31/23 14:12 Bisacodyl 10 Mg Supp.Rect MA 01/31/24 14:11 DAILY PRN Constipation Brimonidine Tartrate [...] 14:12 Docusate Enema 283 Mg/5 Ml Enema MA 01/31/24 14:11 DAILY PRN Constipation Docusate Sodium [...] mcg DAILY BERTRAND Administration Assessment/Plan <Sofya Petit, CASING PULLER - Last Filed: 02/09/23 14:08> Assessment/Plan (1) [...] arthroplasty on 01/17/2023. Initially admitted to a nursing home facility but failed to improve functionally and [...] equipment to enhance the patient's a functional caodaism Ensure adequate nutrition and hydration Sleep: No concerns Pain: Continue current regimen Discharge planning: Hopefully home this weekend, pending FI. I spent greater than 15 minutes for services, including xidk-tr-acfq encounter with the patient, discussion of the case, plan of care, and exam; and agvwyut-lz-filk activities, such as reviewing pertinent splunk consultant documentation, recent therapy notes, laboratory and radiology studies, and discussion of case with care team including physician, nursing, gearcase assembler, and therapists. More than 50 % of [...] the chart, including currentorders, allied health and splunk consultant notes, labs/imaging and plan of care as above. Documented By: Sofya Petit APRN 02/09/23 1 356 Signed By: <Electronically signed by TRAY Petit> 02/09/23 1408 <Electronically signed by Syd Muir MD> 02/10/23 4010 [facility] Work Phone: 1(504) [phone] NoteHNO ID: [id number] Author: Judit Jarrell PA-C Service: ? 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 Author [...] BY: RT Margy(R) February 10, 2023 10:29 [facility]09-20-2023 Hospital Discharge instructionsAmbulatory Orders* Initiate Home Health [...] skin breakdown. Your Home Health agency is [facility] ( ). They will contact you 24-48 [...] office to inform them prior to your appointment.[facility] Work Phone: 1(877) 753-168109-20-2023 Progress note Author Syd Muir [facility] February 08, 2023 11:44am Note Date/Time February 08, 2023 11:44am [facility] [address] [place] [address] Physiatry(Rehab) Progress Note Signed Patient: Kiki Moore MR#: [id number] : 1945 Acct:[id number] Age/Sex: 78 / F Adm Date: 3 Loc: Room: 1K4800-2 Type: ADM IN Attending Dr: Syd Muir MD Copies to: ~ Date of Service: 02/08/2023 Subjective Subjective Narrative: Ms. Moore is a 78 year old female presenting to acute rehab as a transfer from [facility]. Her past medical history is notable [...] left total knee on 01/17/2023 at the [facility]. Placed on Xarelto for DVT prophylaxis postop. [...] agreeable to a blood transfusion. Interval history: ALICJA today, daughter present at bedside Notes some [...] mg 01/31/23 14:12 Bisacodyl 10 Mg Supp.Rect MA 01/31/24 14:11 DAILY PRN Constipation Brimonidine Tartrate 1 drops 02/01/23 09:00 02/08/23 08:14 Brimonidine 0.15% Op Soln 100 Drops/5 Ml Drops EYE-BOTH 02/01/24 08:59 1 drops DAILY BERTRAND Administration Docusate Sodium 283 mg 01/31/23 14:12 Docusate Enema 283 Mg/5 Ml Enema MA 01/31/24 14:11 DAILY PRN Constipation Docusate Sodium [...] arthroplasty on 01/17/2023. Initially admitted to a nursing home facility but failed to improve functionally and was transferred to us. * Check venous duplex, increased pain and swelling * Topical modalities to left wrist IV infiltation site. * Ambulatory 75' and able to do some stairs, encourage more independence in room * Ortho appt 02/10 at [facility] Patient education Pressure ulcer prophylaxis; encourage mobilization, [...] equipment to enhance the patient's a functional caodaism Ensure adequate nutrition and hydration Sleep: No concerns Pain: Continue current regimen Discharge planning: Hopefully home this weekend, pending FI. Plan: I completed a substantive portion of this encounter, the medical decision makingportion of this note in its entirety, including Allied health note review, nursing note review, splunk consultant note review, discussion with nursing and case management, and more than 50% of my time was spent on counseling and coordination of care, time spent 35 minutes Patient was personally seen by me, Dr. Muir, on the day of encounter, reviewed the history and the relevant portions of the chart, including current orders, allied health and splunk consultant notes, labs/imaging and performed carranza elements of exam and I formulated the plan of care and facilitated the medical decision making. Documented By: Syd Muir MD 02/08/23 1142 Signed By: <Electronically signed by Syd Muir MD> 02/08/23 1146 [facility] Work Phone: 1(897) 414-797109-19-2023 Progress note Author Syd Muir [facility] February 07, 2023 11:45am Note Date/Time February 07, 2023 11:45am [facility] [address] [place] [address] Physiatry(Rehab) Progress Note Signed Patient: Kiki Moore MR#: [id number] : 1945 Acct:[id number] Age/Sex: 78 / F Adm Date: 3 Loc: Room: 2P0212-1 Type: ADM IN Attending Dr: Syd Muir MD Copies to: ~ Date of Service: 02/07/2023 Subjective Subjective Narrative: Ms. Moore is a 78 year old female presenting to acute rehab as a transfer from [facility]. Her past medical history is notable [...] left total knee on 01/17/2023 at the [facility]. Placed on Xarelto for DVT prophylaxis postop. [...] % (Auto) 65.9 Lymph % (Auto) 17.4 [place] % (Auto) 15.5 Eos % (Auto) 0.8 Baso % (Auto) 0.4 Nucleat RBC Rel Count 0.1 Neut # (Auto) 5.2 Lymph # (Auto) 1.4 [place] # (Auto) 1.2 H Eos # (Auto) [...] mg 01/31/23 14:12 Bisacodyl 10 Mg Supp.Rect MA 01/31/24 14:11 DAILY PRN Constipation Brimonidine Tartrate 1 drops 02/01/23 09:00 02/07/23 08:22 Brimonidine 0.15% Op Soln 100 Drops/5 Ml Drops EYE-BOTH 02/01/24 08:59 1 drops DAILY BERTRAND Administration Docusate Sodium 283 mg 01/31/23 14:12 Docusate Enema 283 Mg/5 Ml Enema MA 01/31/24 14:11 DAILY PRN Constipation Docusate Sodium 100 mg 02/01/23 21:00 02/07/23 08:24 Docusate 100 Mg Capsule PO 02/01/24 20:59 100 mg BID BERTRAND Administration Ferrous Sulfate 324 mg 02/06/23 09:00 02/07/23 08:23 Ferrous Sulfate 324 Mg Tablet.Dr CORONA 02/06/24 08:59 324 mg BID BERTRAND Administration [...] 02/07/23 08:23 Pantoprazole 40 Mg Tablet.Dr CORONA 09/13/24 09:59 40 mg DAILY BRETRAND Administration Prednisone 5 mg 01/31/23 14:50 Prednisone [...] arthroplasty on 01/17/2023. Initially admitted to a nursing home facility but failed to improve functionally and was transferred to us. * Improving * Ambulatory 75' and able to do some stairs, encourage more independence in room * Ortho appt 02/09 at [facility] Patient education Pressure ulcer prophylaxis; encourage mobilization, [...] equipment to enhance the patient's a functional caodaism Ensure adequate nutrition and hydration Sleep: No concerns Pain: Continue current regimen Discharge planning: Hopefully home this weekend, pending FI. Plan: I completed a substantive portion of this encounter, the medical decision makingportion of this note in its entirety, including Allied health note review, nursing note review, splunk consultant note review, discussion with nursing and case management, and more than 50% of my time was spent on counseling and coordination of care, time spent 25 minutes Patient was personally seen by me, Dr. Muir, on the day of encounter, reviewed the history and the relevant portions of the chart, including current orders, allied health and splunk consultant notes, labs/imaging and performed carranza elements of exam and I formulated the plan of care and facilitated the medical decision making. Documented By: Syd Muir MD 02/07/23 114 Signed By: <Electronically signed by Syd Muir MD> 02/07/23 1145 [facility] Work Phone: 1(737) 149-466909-18-2023 Progress note Author Syd Muir [facility] February 06, 2023 12:26pm Note Date/Time February 06, 2023 12:27pm [facility] [address] [place] [address] Physiatry(Rehab) Progress Note Signed Patient: Kiki Moore MR#: [id number] : 1945 Acct:[id number] Age/Sex: 78 / F Adm Date: 3 Loc: 5T Room: 2T6162-4 Type: ADM IN Attending Dr: Syd Muir MD Copies to: ~ Date of Service: 02/06/2023 Subjective Subjective Narrative: Ms. Moore is a 78 year old female presenting to acute rehab as a transfer from [facility]. Her past medical history is notable [...] left total knee on 01/17/2023 at the [facility]. Placed on Xarelto for DVT prophylaxis postop. [...] mg 01/31/23 14:12 Bisacodyl 10 Mg Supp.Rect MA 01/31/24 14:11 DAILY PRN Constipation Brimonidine Tartrate 1 drops 02/01/23 09:00 02/06/23 09:44 Brimonidine 0.15% Op Soln 100 Drops/5 Ml Drops EYE-BOTH 02/01/24 08:59 1 drops DAILY BERTRAND Administration Docusate Sodium 283 mg 01/31/23 14:12 Docusate Enema 283 Mg/5 Ml Enema MA 01/31/24 14:11 DAILY PRN Constipation Docusate Sodium [...] 02/02/23 10:00 02/06/23 09:43 Pantoprazole 40 Mg Tablet.Dr PO 02/02/24 09:59 [...] arthroplasty on 01/17/2023. Initially admitted to a nursing home facility but failed to improve functionally and [...] equipment to enhance the patient's a functional caodaism Ensure adequate nutrition and hydration Sleep: No concerns Pain: Continue current regimen Discharge planning: Hopefully home this weekend. Plan: I completed a substantive portion of this encounter, the medical decision makingportion of this note in its entirety, including Allied health note review, nursing note review, splunk consultant note review, discussion with nursing and case management, and more than 50% of my time was spent on counseling and coordination of care, time spent 45 minutes Patient was personally seen by me, Dr. Muir, on the day of encounter, reviewed the history and the relevant portions of the chart, including current orders, allied health and splunk consultant notes, labs/imaging and performed carranza elements of exam and I formulated the plan of care and facilitated the medical decision making. Documented By: Syd Muir MD 02/06/23 6161 Signed By: <Electronically signed by Syd Muir MD> 02/06/23 3818 [facility] Work Phone: 1(920) 725-232509-18-2023 Progress note Author Syd Muir [facility] February 06, 2023 12:24pm Note Date/Time February 04, 2023 11:17am [facility] [address] [place] [address] Physiatry(Rehab) Progress Note Signed Patient: Kiki Moore MR#: [id number] : 1945 Acct:[id number] Age/Sex: 78 / F Adm Date: 3 Loc: Room: 0Z5849-9 Type: ADM IN Attending Dr: Syd Muir MD Copies to: ~ <Sofya Petit APRN - Last Filed: 02/04/23 11:17> Date of Service: 02/04/2023 Subjective <Sofya Petit APRN - Last Filed: 02/04/23 11:17> Subjective Narrative: Ms. Moore is a 78 year old female presenting to acute rehab as a transfer from [facility]. Her past medical history is notable [...] left total knee on 01/17/2023 at the [facility]. Placed on Xarelto for DVT prophylaxis postop. [...] if the imaging could be performed at [facility] and faxed over to surgeons office. Review [...] affect appropriate. Normal speech. Objective <Sofya Petit, CASING PULLER - Last Filed: 02/04/23 11:17> Labs 02/04/23 05:13 02/02/23 05:54 Labs: Laboratory Results - last 24 hr 02/04/23 05:13 Corrected WBC 6.3 Uncorrected WBC Count 6.3 RBC 2.58 L Hgb 8.7 L Hct 25.4 L MCV 98.3 MCH 33.5 MCHC 34.0 RDW 14.7 Plt Count 235 MPV 6.6 Neut % (Auto) 65.0 Lymph % (Auto) 17.4 [place] % (Auto) 14.2 Eos % (Auto) 2.9 Baso % (Auto) 0.5 Nucleat RBC Rel Count 0.1 Neut # (Auto) 4.1 Lymph # (Auto) 1.1 [place] # (Auto) 0.9 H Eos # (Auto) [...] 02/03/23 20:13 Atorvastatin 40 Mg Tablet PO 09/11/24 20:59 40 mg QPM BERTRAND Administration Bisacodyl 10 mg 01/31/23 14:12 Bisacodyl 10 Mg Supp.Rect MA 01/31/24 14:11 DAILY PRN Constipation Brimonidine Tartrate 1 drops 02/01/23 09:00 02/04/23 09:20 Brimonidine 0.15% Op Soln 100 Drops/5 Ml Drops EYE-BOTH 02/01/24 08:59 1 drops DAILY BERTRAND Administration Docusate Sodium 283 mg 01/31/23 14:12 Docusate Enema 283 Mg/5 Ml Enema MA 01/31/24 14:11 DAILY PRN Constipation Docusate Sodium [...] 50 mcg DAILY BERTRAND Administration Assessment/Plan <Sofya Petit APRN - Last Filed: 02/04/23 11:17> Assessment/Plan (1) [...] arthroplasty on 01/17/2023. Initially admitted to a nursing home facility but failed to improve functionally and [...] equipment to enhance the patient's a functional caodaism Ensure adequate nutrition and hydration Sleep: No concerns Pain: Continue current regimen Discharge planning: Hopefully home in a week or two. I spent greater than 15 minutes for services, including sumx-ki-ramr encounter with the patient, discussion of the case, plan of care, and exam; and parowhn-lk-dycj activities, such as reviewing pertinent splunk consultant documentation, recent therapy notes, laboratory and radiology studies, and discussion of case with care team including physician, nursing, gearcase assembler, and therapists. More than 50 % of [...] the chart, including currentorders, allied health and splunk consultant notes, labs/imaging and plan of care as above. Documented By: Sofya Petit APRN 02/04/23 1 111 Signed By: <Electronically signed by TRAY Petit> 02/04/23 1117 <Electronically signed by Syd Muir MD> 02/06/23 1224 [facility] Work Phone: 1(478) 324-241509-18-2023 Progress note Author Syd Muir [facility] February 06, 2023 12:23pm Note Date/Time February 02, 2023 2:09pm [facility] [address] [place] [address] Physiatry(Rehab) Progress Note Signed Patient: Kiki Moore MR#: [id number] : 1945 Acct:[id number] Age/Sex: 78 / F Adm Date: 3 Loc: Room: 1G3784-1 Type: ADM IN Attending Dr: Syd Muir MD Copies to: ~ <Sofya Petit APRN - Last Filed: 02/02/23 14:13> Date of Service: 02/02/2023 Subjective <Sofya Petit APRN - Last Filed: 02/02/23 14:13> Subjective Narrative: Ms. Moore is a 78 year old female presenting to acute rehab as a transfer from [facility] nursing home facility. Her past medical history is notable for [...] left total knee on 01/17/2023 at the [facility]. Placed on Xarelto for DVT prophylaxis postop. [...] and affect appropriate. Normal speech. Objective <Sofya Petit APRN - Last Filed: 02/02/23 14:13> Labs 02/02/23 05:54 02/02/23 05:54 Labs: Laboratory Results - last 24 hr 02/01/23 02/02/23 02/02/23 18:58 02:20 02:20 Corrected WBC Uncorrected WBC Count RBC Hgb Hct MCV MCH MCHC RDW Plt Count MPV Neut % (Auto) Lymph % (Auto) [place] % (Auto) Eos % (Auto) Baso % (Auto) Nucleat RBC Rel Count Neut # (Auto) Lymph # (Auto) [place] # (Auto) Eos # (Auto) Baso # (Auto) Absolute Retic Percent Retic Haptoglobin PHA Creatinine Clear Sodium Potassium Chloride Carbon Dioxide Anion Gap BUN Creatinine Est GFR (CKD-EPI) Glucose Osmolality Calcium Iron TIBC Iron Saturation Transferrin Ferritin Lactate Dehydrogenase Total Cortisol Urine Osmolality 465 Ur Sodium mmol/L 65.0 Reference Lab Result Sent to arc 02/02/23 02/02/23 02/02/23 05:54 05:54 05:54 Corrected WBC 5.8 Uncorrected WBC Count 5.8 RBC 1.89 L Hgb 6.6 L Hct 18.9 L* MCV 100.5 H MCH 34.9 H MCHC 34.8 RDW 14.8 Plt Count 267 MPV 6.6 Neut % (Auto) 74.0 Lymph % (Auto) 13.6 [place] % (Auto) 10.9 Eos % (Auto) 1.2 Baso % (Auto) 0.3 Nucleat RBC Rel Count 0.2 Neut # (Auto) 4.3 Lymph # (Auto) 0.8 L [place] # (Auto) 0.6 Eos # (Auto) 0.1 [...] MPV Neut % (Auto) Lymph % (Auto) [place] % (Auto) Eos % (Auto) Baso % (Auto) Nucleat RBC Rel Count Neut # (Auto) Lymph # (Auto) [place] # (Auto) Eos # (Auto) Baso # [...] Dose Admin Acetaminophen 500 mg 01/31/23 14:12 09/14/23 09:03 Acetaminophen 500 Mg Tablet PO 01/31/24 [...] mg 01/31/23 14:12 Bisacodyl 10 Mg Supp.Rect MA 01/31/24 14:11 DAILY PRN Constipation Brimonidine Tartrate 1 drops 02/01/23 09:00 02/02/23 09:05 Brimonidine 0.15% Op Soln 100 Drops/5 Ml Drops EYE-BOTH 02/01/24 08:59 1 drops DAILY BERTRAND Administration Docusate Sodium 283 mg 01/31/23 14:12 Docusate Enema 283 Mg/5 Ml Enema MA 01/31/24 14:11 DAILY PRN Constipation Docusate Sodium [...] 50 mcg DAILY BERTRAND Administration Assessment/Plan <Sofya Petit APRN - Last Filed: 02/02/23 14:13> Assessment/Plan (1) [...] arthroplasty on 01/17/2023. Initially admitted to a nursing home facility but failed to improve functionally and [...] equipment to enhance the patient's a functional caodaism Ensure adequate nutrition and hydration Sleep: No concerns Pain: Continue current regimen Discharge planning: Hopefully home in a week or two. I spent greater than 15 minutes for services, including ufsv-vd-juck encounter with the patient, discussion of the case, plan of care, and exam; and ophgque-ue-mxux activities, such as reviewing pertinent splunk consultant documentation, recent therapy notes, laboratory and radiology studies, and discussion of case with care team including physician, nursing, gearcase assembler, and therapists. More than 50 % of [...] Allied health note review, nursing note review, splunk consultant note review, discussion with nursing and case management, and more than 50% of my time was spent on counseling and coordination of care, time spent 25 minutes Patient was personally seen by me, Dr. Muir, on the day of encounter, reviewed the history and the relevant portions of the chart, including current orders, allied health and splunk consultant notes, labs/imaging and performed carranza elements of exam and I formulated the plan of care and facilitated the medical decision making. Complete oral antibiotics for surgical site/postop wound infection. Transfuse 2 units PRBCs. Documented By: Sofya Petit APRN 02/02/23 1 403 Signed By: <Electronically signed by TRAY Petit> 02/02/23 1413 <Electronically signed by Syd Muir MD> 02/06/23 1223 [facility] Work Phone: 1(750) 750-998009-18-2023 History and physical note Author Syd Muir [facility] February 06, 2023 12:22pm Note Date/Time February 01, 2023 10:24am [facility] [address] [place] [address] Physiatry (Rehab) H&P Signed with Addenda Patient: Kiki Moore MR#: [id number] : 1945 Acct:[id number] Age/Sex: 78 / F Adm Date: 3 Loc: Room: [address] [place] [address] Type: ADM IN Attending Dr: Syd Muir [...] to acute rehab as a transfer from [facility]. Her past medical history is notable [...] left total knee on 01/17/2023 at the [facility]. Placed on Xarelto for DVT prophylaxis postop. [...] Bisacodyl (Bisacodyl 10 Mg Supp.Rect) 10 mg MA DAILY PRN PRN Reason: Constipation Stop: 01/31/24 [...] Enema 283 Mg/5 Ml Enema) 283 mg MA DAILY PRN PRN Reason: Constipation Stop: 01/31/24 [...] Drops/2.5 Ml Bottle) 1 drops EYE-BOTH QPM [facility] Stop: 01/31/24 20:59 Last Admin: 01/31/23 20:05 Dose: 1 drops Levofloxacin (Levofloxacin 750 Mg Tablet) 750 mg PO DAILY [facility] Stop: 02/05/23 09:00 Lisinopril (Lisinopril 40 Mg Tablet) 40 mg PO DAILY [facility] Stop: 02/01/24 08:59 Last Admin: 02/01/23 09:21 [...] (1,000 Units) Tablet) 50 mcg PO DAILY [facility] Stop: 02/01/24 08:59 Last Admin: 02/01/23 09:21 [...] 14 days Expected Discharge Destination: Home Rehabilitation [facility]: [id number] Primary Diagnosis: Total knee arthroplasty Patient?s/Family?s anticipated [...] 24 hour daily monitoring and intervention from Psychiatric Tech as well as other consulting physicians including internal medicine as well as 24 hour daily rn psych nursing - for medical safe / optimal [...] oriented plan of care Assessment/Plan <Sofya Petit, CASING PULLER - Last Filed: 02/01/23 11:20> (1) Impaired [...] arthroplasty on 01/17/2023. Initially admitted to a nursing home facility but failed to improve functionally and [...] equipment to enhance the patient's a functional caodaism Ensure adequate nutrition and hydration Sleep: No concerns Pain: Continue current regimen Discharge planning: Hopefully home in a week or two. I spent greater than 45 minutes for services, including hkze-tv-jkej encounter with the patient, discussion of the case, plan of care, and exam; and rklzbey-ep-tszd activities, such as reviewing pertinent splunk consultant documentation, recent therapy notes, laboratory and radiology studies, and discussion of case with care team including physician, nursing, gearcase assembler, and therapists. More than 50 % of [...] Allied health note review, nursing note review, splunk consultant note review, discussion with nursing and case management, and more than 50% of my time was spent on counseling and coordination of care, time spent -75 minutes Patient was personally seen by me, Dr. Muir, on the day of encounter, reviewed the history and the relevant portions of the chart, including current orders, allied health and splunk consultant notes, labs/imaging and performed carranza elements of exam and I formulated the plan of care and facilitated the medical decision making. Documented By: Sofya Petit APRN 02/01/23 1 016 Signed By: <Electronically signed by TRAY Petit> 02/01/23 1120 <Electronically signed by Syd Muir MD> 02/01/23 1155 [facility] Work Phone: 1(188) 887-654009-15-2023 Progress note Author Brennan Bucio [facility] February 03, 2023 1:59pm Note Date/Time February 03, 2023 1:58pm [facility] [address] [place] [address] Physiatry(Rehab) Progress Note Signed Patient: Kiki Moore MR#: [id number] : 1945 Acct:[id number] Age/Sex: 78 / F Adm Date: 3 Loc: Room: [address] [place] [address] Type: ADM IN Attending Dr: Syd Muir MD Copies to: ~ Date of Service: 02/03/2023 Subjective Subjective Narrative: Ms. Moore is a 78 year old female presenting to acute rehab as a transfer from [facility]. Her past medical history is notable [...] left total knee on 01/17/2023 at the [facility]. Placed on Xarelto for DVT prophylaxis postop. [...] L 96 Room Air 02/03/23 11:02/03/23 11:02/03/23 11:00 02/03/23 11:02/03/23 11:02/03/23 11:00 Narrative: General: Awake, A&O [...] % (Auto) 65.2 Lymph % (Auto) 18.6 [place] % (Auto) 12.3 Eos % (Auto) 3.4 Baso % (Auto) 0.5 Nucleat RBC Rel Count 0.1 Neut # (Auto) 4.4 Lymph # (Auto) 1.2 [place] # (Auto) 0.8 Eos # (Auto) 0.2 [...] mg 01/31/23 14:12 Bisacodyl 10 Mg Supp.Rect MA 01/31/24 14:11 DAILY PRN Constipation Brimonidine Tartrate 1 drops 02/01/23 09:00 02/03/23 09:45 Brimonidine 0.15% Op Soln 100 Drops/5 Ml Drops EYE-BOTH 02/01/24 08:59 1 drops DAILY BERTRAND Administration Docusate Sodium 283 mg 01/31/23 14:12 Docusate Enema 283 Mg/5 Ml Enema MA 01/31/24 14:11 DAILY PRN Constipation Docusate Sodium [...] Sodium IV 02/04/23 09:01 Infused Chloride QAM [facility] Infusion Lactulose 30 gm 01/31/23 14:12 02/01/23 [...] arthroplasty on 01/17/2023. Initially admitted to a nursing home facility but failed to improve functionally and [...] equipment to enhance the patient's a functional caodaism Ensure adequate nutrition and hydration Sleep: No concerns Pain: Continue current regimen Discharge planning: Hopefully home in a week or two. Plan: I completed a substantive portion of this encounter, the medical decision makingportion of this note in its entirety, including Allied health note review, nursing note review, splunk consultant note review, discussion with nursing and case management, and more than 50% of my time was spent on counseling and coordination of care, time spent 25 minutes Patient was personally seen by me, Dr. Bucio, on the day of encounter, reviewed the history and the relevant portions of the chart, including current orders, allied health and splunk consultant notes, labs/imaging and performed carranza elements of exam and I formulated the plan of care and facilitated the medical decision making. Documented By: Brennan Bucio MD 1356 Signed By: <Electronically signed by Brennan Bucio MD> 02/03/23 1359 [facility] Work Phone: 1(628) 754-523509-15-2023 Progress note Author Will Brown [facility] February 03, 2023 12:51pm Note Date/Time February 03, 2023 12:51pm [facility] [address] [place] [address] Hospitalist Progress Note Signed Patient: Kiki Moore MR#: [id number] : 1945 Acct:[id number] Age/Sex: 78 / F Adm Date: 3 Loc: Room: [address] [place] [address] Type: ADM IN Attending Dr: Syd Muir MD Copies to: ~ Date of Service: 02/03/2023 Subjective Subjective Narrative: This is a 78-year-old male past medical history significant for CVA, history DVT, anemia, glaucoma, hypertension, rheumatoid arthritis, pulmonary hypertension, CKD, multiple previous joint surgeries including hip and knee revisions. Presents transferred to the acute inpatient rehab unit from [facility]. The patient recently underwent left total knee January 17 at [facility]. While at nursing home facility she developed left knee swelling and pain requiring as well as incisional drainage, levofloxacin was initiated. Patient was transferred to [facility] rehab January 31 after familyrequested transfer to [...] Room Air 02/03/23 11:00 02/03/23 11:00 02/03/23 11:00 02/03/23 11:00 02/03/23 11:00 02/03/23 11:00 Narrative: CONST- [...] mg 01/31/23 14:12 Bisacodyl 10 Mg Supp.Rect MA 01/31/24 14:11 DAILY PRN Constipation Brimonidine Tartrate 1 drops 02/01/23 09:00 02/03/23 09:45 Brimonidine 0.15% Op Soln 100 Drops/5 Ml Drops EYE-BOTH 02/01/24 08:59 1 drops DAILY BERTRAND Administration Docusate Sodium 283 mg 01/31/23 14:12 Docusate Enema 283 Mg/5 Ml Enema MA 01/31/24 14:11 DAILY PRN Constipation Docusate Sodium [...] Tablet PO 02/05/23 10:30 750 mg Q48H BERTRNAD Administration Lisinopril 10 mg 02/04/23 09:00 Lisinopril [...] Chronic hyponatremia: Plan Knee replacement 01/17/2023 at [facility] Postoperative anemia -Further POC per PMR team for rehabilitative therapy postop, pain control bowel regimen, DVT PPx, surgical wound care -Please address any questions/concerns postoperatively to [facility] orthopedic team -Continue Levaquin as previously ordered [...] PCP and out patient providers to obtain [facility] record entirely to follow up on illnesses, symptoms, abnormal findings that I have and have not addressed duringthis encounter and hospitalization in out patient setting.. Documented By: Will Brown MD 02/03/23 1248 Signed By: <Electronically signed by Will Brown MD> 02/03/23 1251 [facility] Work Phone: 1(852) 823-189309-14-2023 Progress note Author Will Brown [facility] February 02, 2023 9:51am Note Date/Time February 02, 2023 9:51am [facility] [address] [place] [address] Hospitalist Progress Note Signed Patient: Kiki Moore MR#: [id number] : 1945 Acct:[id number] Age/Sex: 78 / F Adm Date: 3 Loc: Room: 2G0206-6 Type: ADM IN Attending Dr: Syd Muir MD Copies to: ~ Date of Service: 02/02/2023 Subjective Subjective Narrative: This is a 78-year-old male past medical history significant for CVA, history DVT, anemia, glaucoma, hypertension, rheumatoid arthritis, pulmonary hypertension, CKD, multiple previous joint surgeries including hip and knee revisions. Presents transferred to the acute inpatient rehab unit from [facility]. The patient recently underwent left total knee January 17 at [facility]. While at nursing home facility she developed left knee swelling and pain requiring as well as incisional drainage, levofloxacin was initiated. Patient was transferred to [facility] rehab January 31 after familyrequested transfer to [...] mg 01/31/23 14:12 Bisacodyl 10 Mg Supp.Rect MA 01/31/24 14:11 DAILY PRN Constipation Brimonidine Tartrate 1 drops 02/01/23 09:00 02/02/23 09:05 Brimonidine 0.15% Op Soln 100 Drops/5 Ml Drops EYE-BOTH 02/01/24 08:59 1 drops DAILY BERTRAND Administration Docusate Sodium 283 mg 01/31/23 14:12 Docusate Enema 283 Mg/5 Ml Enema MA 01/31/24 14:11 DAILY PRN Constipation Docusate Sodium [...] in a.m. Documented By: Will Brown MD 02/02/2348 Signed By: <Electronically signed by Will Brown MD> 02/02/23 0951 [facility] Work Phone: 1(305) 384-411709-14-2023 Consult note Author Will Brown [facility] February 02, 2023 7:33am Note Date/Time February 01, 2023 1:31pm [facility] [address] [place] [address] Hospitalist Consult Note Signed Patient: Kiki Moore MR#: [id number] : 1945 Acct:[id number] Age/Sex: 78 / F Adm Date: 3 Loc: Room: 2L8609-4 Type: ADM IN Attending Dr: Syd Muir MD Copies to: MD Ivy Restrepo, ANP-[facility] Will Brown MD~ HPI DATE OF CONSULTATION: 02/01/23 REQUESTING PROVIDER: Syd Muir Consult Narrative Reason for Consult: Hypertension HPI: This is a 78-year-old male past medical history significant for CVA, history DVT, anemia, glaucoma, hypertension, rheumatoid arthritis, pulmonary hypertension, CKD, multiple previous joint surgeries including hip and knee revisions. Presents transferred to the acute inpatient rehab unit from [facility]. The patient recently underwent left total knee January 17 at [facility]. While at nursing home facility she developed left knee swelling and pain requiring as well as incisional drainage, levofloxacin was initiated. Patient was transferred to [facility] rehab January 31 after familyrequested transfer to [...] negative unless noted below or in HPI [facility] Medical History (Updated 02/01/23 @ 16:09 by Ivy Thomas, ANP-) Anemia Chronic hyponatremia CVA (cerebral vascular accident) [...] mg 01/31/23 14:12 Bisacodyl 10 Mg Supp.Rect MA 01/31/24 14:11 DAILY PRN Constipation Brimonidine Tartrate 1 drops 02/01/23 09:00 02/01/23 09:21 Brimonidine 0.15% Op Soln 100 Drops/5 Ml Drops EYE-BOTH 02/01/24 08:59 1 drops DAILY BERTRAND Administration Docusate Sodium 283 mg 01/31/23 14:12 Docusate Enema 283 Mg/5 Ml Enema MA 01/31/24 14:11 DAILY PRN Constipation Docusate Sodium [...] urine sodium, cortisol in a.m. Documented By: Ivy VANDA Gipson 3 1331 Signed By: <Electronically signed by VANDA Thomas> 02/01/23 1611 <Electronically signed by Will Brown MD> 02/02/23 0733 [facility] Work Phone: [phone]) 786-637308-31-2023 NoteHNO ID: [id number] Author: Jocelyn Kuo RN Service: ? Author Type: Registered Nurse Type: Nursing Progress Note Filed: 01/19/2023 4:59 PM Note Text: [id number] Report called to Vianney at [facility] 01-19-2023 NoteHNO ID: [id number] Author: Catalina Campbell RN Service: Care Management Author Type: Registered Nurse Type: Care Mgt Progress Note Filed: 01/19/2023 12:52 PM Note Text: CARE MANAGEMENT DISCHARGE NOTE SERVICE DATE: January 19, 2023 SERVICE TIME: 12:51 PM Admission Date: 01/17/2023 LOS: 0 days Discharge Arrangement [facility] Provider Name: Cinda Coronel Caregiver Assessment Caregiver is ready, willing and able to meet the patient's needs as recommended by the inter-professional team: No Caregiver needed Transportation Arrangements Transportation Arrangements: Ambulance Transportation Agency and Phone #:: [facility] [phone] Date of Trip: 01/19/23 Time of Trip: 1600 Type of Service: BLS Non-emergency Is Patient Medicaid Pending?: No Was transportation financial coverage discussed with family?: Patient Innersole Maker Location: [place] Destination: [facility] Financial Care Management Responsibility: None Additional Information: Patient being dc'd to [facility]. Discharge Information Row Name Admission (Current) from 01/17/[address] [facility] Facility Agency [facility] SIGNATURE: Catalina Campbell RN PATIENT NAME: Kiki Moore DATE: January 19, 2023 TIME: 12:51 PM CONTACT #: [id number] History of Past illness Narrative* Problem Noted Date Diagnosed Date Resolved Date Hypomagnesemia 01/19/2023 01/19/2023 KAMI (acute kidney injury) 01/18/2023 Hyperkalemia 01/18/2023 01/19/2023 documented as of this encounter (statuses as of 03/07/2023) [facility]08-31-2023 History of Past illness Narrative* Problem Noted Date Diagnosed Date Resolved Date Hypomagnesemia 01/19/2023 01/19/2023 KAMI (acute kidney injury) 01/18/2023 Hyperkalemia 01/18/2023 01/19/2023 documented as of this encounter (statuses as of 04/17/2023) [facility]08-31-2023 NoteHNO ID: [id number] Author: Gaby Solorzano PA-C Service: Orthopaedic Surgery Author Type: Physician Director Of Land Type: Progress Notes Filed: 01/19/2023 11:18 AM [...] Obesity Snoring Back Pain Ra (Rheumatoid Arthritis) ([facility]) Arthritis of Left Hip Spondylolisthesis of Lumbar Region 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 Stroke ([facility]) Dvt of Popliteal Vein ([facility]) S/P Patent Foramen Ovale Closure Hypertension Pulmonary Hypertension ([facility]) Primary Osteoarthritis of Left Knee Obesity, Class I, Bmi 30-34.9 Status Post Total Left Knee Replacement Kami (Acute Kidney Injury) ([facility]) Hyponatremia Hyperkalemia S/P Total Knee Arthroplasty, Left Hypomagnesemia Medication and Non-Pharmacologic VTE Prophylaxis/Anticoagulants Anticoagulant AND Antiplatelet Medications (From admission, onward) Start Dose Route Frequency Last Action Ordered Stop 01/18/23 0900 rivaroxaban 10 mg tab(s) (XARELTO) (Surgical Risk Categories) 10 mg ORAL DAILY Given, 01/19 0938 01/17/23 1616 01/30/23 0859 01/18/23 0000 graduated compression stockings (ky,oh) 01/17/23 1630 graduated compression stockings (ky,oh) 01/17/23 1630 activity - mobilize patient (ky,oh) VTE Prophylaxis: VTE prophylaxis appropriate POST OPERATIVE COMPLICATIONS: Complicated by: uneventful/none I spent a total of 35 minutes on the date of the service which included kpdw-av-uyma patient care, completing clinical documentation, obtaining and/or reviewing separately obtained history, and performing a medically appropriate examination. 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 Stroke ([facility]) Dvt of Popliteal Vein ([facility]) S/P Patent Foramen Ovale Closure Hypertension Pulmonary Hypertension ([facility]) Primary Osteoarthritis of Left Knee Obesity, Class I, Bmi 30-34.9 Status Post Total Left Knee Replacement Kami (Acute Kidney Injury) ([facility]) Hyponatremia Hyperkalemia Medication and Non-Pharmacologic VTE Prophylaxis/Anticoagulants Anticoagulant AND Antiplatelet Medications (From admission, onward) Start Dose Route Frequency Last Action Ordered Stop 01/18/23 0900 rivaroxaban 10 mg tab(s) (XARELTO) (Surgical Risk Categories) 10 mg ORAL DAILY Given, 01/18 1008 01/17/23 1616 01/30/23 0859 01/18/23 0000 graduated compression stockings ([place] 01/17/23 1630 graduated compression stockings ([place] 01/17/23 1630 activity - mobilize patient ([place] VTE Prophylaxis: VTE prophylaxis appropriate POST OPERATIVE COMPLICATIONS: Complicated by: uneventful/none I spent a total of 25 minutes on the date of the service which included preparing to see the patient, ddhp-gr-omsw patient care, completing clinical documentation, obtaining and/or reviewing separately obtained history, and performing a medically appropriate examination. SIGNATURE: Gaby Solorzano PA-C PATIENT NAME: Kiki Moore DATE: January 18, 2023 TIME: 12:11 PM ETX#[id number] NoteHNO ID: [id number] Author: Catalina Campbell RN Service: Care Management Author Type: Registered Nurse Type: Care Mgt Initial Assessment Filed: 01/18/2023 12:16 PM Note Text: CARE MANAGEMENT: ASSESSMENT AND DISCHARGE PLAN SERVICE DATE: January 18, 2023 SERVICE TIME: 12:10 PM PCP: MAINE Arias, PAWilfredoC Primary Contact: Extended Emergency Contact Information Primary Emergency Contact: Jackeline Lala Relation: Child Admission Status: Extended Recovery Insurance Provider: MARILU RICE Discharge Planning requested by: Per Department Practice Potential Transition Plans Fdc Facility/Intermediate Care Facility Advance Directives Current Advance Directive: Health Care Power of Playground Aide In Chart: Yes Up To Date and [...] walker Discharge Planning Patient Goal(s): Better mobility [place] Explained: [place] Given: Yes Level of Care Discussed: Fdc Facility Discharge Planning Participant(s): Patient Patient/Family Comments: Caregiver Assessment: Caregiver is ready, willing and able to meet the patient's needs as recommended by the inter-professional team: No Caregiver needed Transport at Discharge: Transportation Arrangements: Ambulance Transportation Agency and Phone #:: [facility] [phone] In[place] Maker Location: [place] Needs Prior to Discharge: Needs Prior to [...] 18, 2023 TIME: 12:10 PM CONTACT #: [id number] NoteHNO ID: [id number] Author: Shania Hendrickson RT(R) Service: Radiology Author [...] BY: RT Scarlett(R) January 17, 2023 2:45 PMAFillmore Community Medical [id number] Evaluation note* Diagnosis S/P total knee replacement, left (01/17/2023)- Primary documented in this encounter [facility]08-29-2023 NoteHNO ID: [id number] Author: Pedro Santana MD Service: Anesthesiology Author Type: Anesthesiologist Type: Anesthesia Procedure Notes Filed: 01/17/2023 8:56 AM Note Text: ANESTHESIOLOGY PROCEDURE NOTE Peripheral Nerve Block General Information Procedure Start Time/Medication Administration: 01/17/2023 8:06 AM Patient location during procedure: OR Timeout Performed Pre-procedure: timeout performed Consent Obtained: Yes Patient identity confirmed: arm band, care team guide and patient sedated or unresponsive Reason for [...] January 17, 2023 TIME: 8:55 AM CSN: [id number] [place], [place] [id number] NoteHNO ID: [id number] Author: Otto Tejada APRN.FUR BLOWING MACHINE ATTENDANT Service: ? Author Type: Nurse Pcat Instructor Type: Anesthesia Procedure Notes Filed: 01/17/2023 8:43 AM Note Text: ANESTHESIOLOGY PROCEDURE NOTE Airway General Information Procedure Start Time/Medication Administration: 01/17/2023 8:35 AM Patient location during procedure: OR Timeout Performed Pre-procedure: timeout performed Consent Obtained: Yes Patient identity confirmed: arm band Staffing FUR BLOWING MACHINE ATTENDANT: Otto Tejada APRN.FUR BLOWING MACHINE ATTENDANT Performed by: FUR BLOWING MACHINE ATTENDANT Indications and Patient Condition Indications for airway management: anesthesia Preoxygenated: yes anesthesia circuit Patient position: sniffing Method: asleep Difficult Mask: No Final Airway Details Final airway type: supraglottic airway Number of attempts at approach: 1 Final Supraglottic Airway: IGEL Size 4 Seal Adequate: yes Airway not difficult SIGNATURE: Otto Tejada APRN.CRNA PATIENT NAME: Kiki Moore DATE: January 17, 2023 TIME: 8:42 AM CSN: [id number] [place], [place] [id number] NoteHNO ID: [id number] Author: Otto Tejada APRN.CRNA Service: ? Author Type: Nurse Pcat Instructor Type: Anesthesia Procedure Notes Filed: 01/17/2023 8:42 AM Note Text: ANESTHESIOLOGY PROCEDURE NOTE Spinal Block General Information Procedure Start Time/Medication Administration: 01/17/2023 7:54 AM Patient location during procedure: OR Timeout Performed Pre-procedure: timeout performed Consent Obtained: Yes Patient identity confirmed: arm band and patient Reason for Block: primary surgical anesthetic Staffing Performed by: anesthesiologist and FUR BLOWING MACHINE ATTENDANT Preparation Sterility Preparation: hand hygiene performed prior [...] January 17, 2023 TIME: 8:31 AM CSN: [id number] NoteHNO ID: [id number] Author: Judit Jarrell PA-C Service: ? Author Type: Physician Director Of Land Type: Progress Notes Filed: 12/23/2022 5:23 PM [...] . Surgery Details Date and Location: [facility]. Implants: [place] Robotic: Yes Predicted LOS: 2 days (Inpatient [...] Deprivation Index (DONI) Mo (more content not included)...[facility] 12-23-2022 Instructions* Patient Instructions* Rico Florian APRN.SKEIN WINDER - 12/23/2022 10:35 AM EDT PATIENT PREOPERATIVE INSTRUCTIONS Shan Box MD has scheduled you for your procedure at this surgery center: [facility]: [phone] --[address] [place] [address]. Please enter through the entrance closest to [...] Procedures: - YOU MUST HAVE A RESPONSIBLE BOILER PLANT WORKER TAKE YOU HOME. A NAIL TECH OR BUNCH TRIMMER MOLD CANNOT BE MADE A RESPONSIBLE BOILER PLANT WORKER. - We recommend that a responsible person [...] Advance Directive, please fax a copy to [phone] or email to for it to be [...] into your chart that day. Rico Florian APRN.YOUNG documented in this encounterTr[facility]23 History and physical note * [...] Obesity Snoring Back Pain Ra (Rheumatoid Arthritis) ([facility]) Arthritis of Left Hip Spondylolisthesis of Lumbar [...] Back pain Bursitis DVT of popliteal vein ([facility]) Glaucoma Hypertension OA (osteoarthritis) Obesity RA (rheumatoid arthritis) ([facility]) Rotator cuff syndrome Snoring Spinal stenosis, lumbar Stroke ([facility]) PAST SURGICAL HISTORY Procedure Laterality Date ARTHRP ACETBLR/PROX FEM PROSTC AGRFT/ALGRFT right Hip replacement, total 2001, revision 06/2014 ARTHRP KNE CONDYLE&PLATU MEDIAL&LAT COMPARTMENTS right Knee replacement, total 1998, 2007 SECTION HX x 2 births FOOT SURGERY HX tumors removed left and right feet GALL BLADDER NO STIMULATION LAMINECTOMY W/O FFD 05/23 VERT SEG LUMBAR 05/22/1992 Dr Tejada PAST [...] residual deficit in 2016 No history of TIA's,GROUP HOME PARAPROFESSIONAL tumor, impaired sensorium, hemiplegia, paraplegia or quadraplegia. [...] > 1 time per night or hematuria HOUSEHOLD ASSISTANT: Negative for abnormal vaginal bleeding, abnormal vaginal [...] 06/04/2014 5.8 [facility] STAPH AUREUS PCR Order: [id number] Component Ref Range & Units 1 mo ago [facility] SA+MRSA PNL NOSE JIMBO+PROBE Negative Comment: Negative for Staphylococcus aureus by PCR. Negative for MRSA by PCR Resulting Agency [facility] Narrative Performed by [facility] Specimen Type: SWAB OF INTERNAL NOSE Ordering Facility: [facility] Address: [address] [place] [id number] Original Ordering Provider: SHAN BOX Specimen Collected: 10/26/22 3:13 PM Performed by: SURENDRA Last Resulted: 10/27/22 2:12 AM Received From: [facility] Result Received: 12/14/22 7:54 AM Most recent labs Most recent EKG: Assessment/Plan Stroke (HCC) Assessment: in 2016 no residual effects DVT of popliteal vein ([facility]) Assessment: history of DVT after knee surgery was on Eliquis for 6 months currently on ASA RA (rheumatoid arthritis) ([facility]) Assessment: Following with Rheumatology On methotrexate and Plaquenil Obesity Assessment: Body mass index is 31.55 kg/m . S/P patent foramen ovale closure Assessment: + history of PFO with closure in 2017 on ASA Stable following with quality assurance Clearance in [facility] Hypertension Assessment:Stable on medication BP today 119/53 Pulmonary hypertension ([facility]) Assessment: Following with Cardiology To obtain [...] 2022 TIME: 9:40 AM documented in this encounterTrumbull [facility]06-21-2023 NoteRCRI- 3???points Class IV Risk [...] DVT prophylaxis. This is good for 6 monthsUnSelect [facility]06-[facility]-2023 Note Coronary artery disease is stable without any concerning symptoms Continue GDMT- ASA, lipitor EKG essentially unchanged from previous- no acute concernsUnSelect Medical [facility]06-21-2023 NoteStable no c/o palpitations or tachycardiaUnSelect [facility]06-21-2023 NoteUTP CARDIOLOGY PROGRESS NOTE HPI: Kiki Moore [...] is planning Lt TKA with Orthopedist in [place], [place] around this coming December. Review of [...] In January 2019 she underwent cholecystectomy at [facility]. She went home and then 2 days later she developed back pain and she was found to have shingles. She was admitted again to [facility]. During that admission troponin was checked [...] 77, LDL 44 Her echocardiogram 01/29/2019 at [facility] showed normal ventricular function and good seal [...] from the left a (more content not included)...[facility]-20[facility] NoteWill repeat echcoardiogram No concerning symptoms todayUnSelect Medical [facility]06-21-2023 Note Hypertension is controlled 127/67 Continue all [facility]sUniversPe[facility]06-[facility]-2023 NoteLipid abnormalities are Well controlled- Chol and LDL within good range (LDL < 70 and Chol < 200)[facility]06-21-2023 Notestable [facility]06-21-2023 NoteEchocardiogram ordered with bubble study Assess cardiac function, PFO closure deviceUnSelect [facility] 10-27-2022 NoteHNO ID: [id number] Author: Shan Box MD Service: ? Author Type: Physician Type: Progress Notes Filed: 10/27/2022 8:11 AM Note Text: see dictated note Shan Box II, [facility]06-08-2023 History of Present illness Narrative* Shan Box MD - 10/27/2022 7:59 AM EDT see dictated note Shan Box II, MD documented in this encounterTrumbull [facility]06-07-2023 NoteHNO ID: [id number] Author: RT Lexus(R) Service: ? Author Type: Technologist Type: Progress Notes Filed: 10/26/2022 1:22 PM Note Text: Radiology Service Progress Note PATIENT NAME: iKki Moore DATE OF SERVICE: October 26, 2022 [...] BY: RT Lexus(R) October 26, 2022 1:21 [facility]06-07-2023 NoteHNO ID: [id number] Author: Shan Box MD Service: Orthopaedic Surgery Author Type: Physician Type: Progress Notes Filed: 11/01/2022 2:38 PM Note Text: [facility] [address] [place] [address] CLINIC NOTE Department of Orthopaedics - Donnell Box II, M.D. NAME: KIKI MOORE [facility] NO.: [id number] DATE OF SERVICE: 10/26/2022 CHIEF COMPLAINT: Pain [...] II, M.D. Date Dictated: 10/27/2022 Date Typed: [facility] 10/27/2022 JOB# [id number]06-[facility] History of Present illness Narrative* RT Lexus(R) - 10/26/2022 1:21 PM EDT Radiology Service [...] BY: RT Lexus(R) October 26, 2022 1:21 PM documented in this encounterTrumbull [facility]02-07-2023 Evaluation + Plan note Diagnostic Tests Pending * PTH Intact 06/28/22 * Calcium Level 24 Hour Urine 06/28/22 Future Scheduled Tests Laboratory* Hemoglobin and Hematocrit 09/21/21 [facility]12-28-2022 Evaluation + Plan noteExtracted from: Title:Discharge Note Author:NATALIE FREEDOMP-BC, Cher nee Date:05/18/22 Hemodynamically stable Discharge To, Anticipated II [...] mg Tab, 20 mg= 1 tab(s), Oral, dFri hydroxychloroquine, 200 mg, Oral, BID latanoprost ophthalmic, 1 drop(s), Eye-Both, qPM methotrexate 2.5 mg Tab, 10 mg= 4 tab(s), Oral, Monday potassium chloride 10 mEq ER Tab, 10 mEq= 1 tab(s), Oral, Daily predniSONE 5 mg Tab, 5 mg= 1 tab(s), Oral, Daily With When Contact Information Cinda CORONEL 05/19/2022 09:30 AM [facility] [place] [address]- [facility] (1) Additional Instructions: Community-Acquired Pneumonia, Adult, Rkvw-ai-Nrpw Extracted from: Title:HypoNa Author:To MILES, [facility] Date: Impression and Plan 1. Acute on [...] at this time. Extracted from: Title:APSO Note Author:NATALIE PEPPER-Celia NORTON ate:05/17/22 1. Pneumonia (J18.9: Pneumon ia, unspecified [...] made to ensure accuracy, however, inadvertently computerized automotive lot attendant mistakes may be present. Extracted from: Title:APSO [...] lower blood pressure in the emergency department 95/62 she admitted to what sounds like orthostatic [...] implies it was an approximate year of 2016 states it was the period of time [...] Oral, q6hr PRN Pain, Routine, Start date 12/25/22 6:49:00 EST, 05/15/22 6:49:00 EST aspirin, 81 [...] 2 midnight stay Extracted from: Title:ED Note Author:Jermaine BURT, Rik Garcia te:05/14/22 Generalized weakness (R53.1: Weakness) Pneumonia (J18.9: [...] for continued care eGFR Rapid COVID Antigen ([facility]) XR Chest Single View Diagnostic Tests Pending * Legionella Antigen Urine 05/15/22 Future Scheduled Tests Laboratory* Hemoglobin and Hematocrit 09/21/21 [facility]12-28-2022 Hospital Discharge instructions Patient Education 05/18/2022 09:18:20 Community-Acquired Pneumonia, Adult, Luhi-th-Wayj Community-Acquired Pneumonia, Adult Pneumonia is an infection [...] Follow these instructions at home: Medicines Take rstl-yna-afjmahv and prescription medicines only as told by [...] cannot use soap and water, use hand chain splitter. Contact a doctor if: You have a [...] 10/24/2008 Document Revised: 08/28/2019 Document Reviewed: 01/03/2019 [employer] Patient Education 2020 [employer]. Follow Up Care 05/14/2022 19:35:37 With:Cinda CORONEL Address: [address] [place] [id number] Business (1) When:05/19/2022 09:30:00 [facility]12-02-2022 Evaluation + Plan note Diagnostic Tests Pending * Vitamin E Level 04/22/22 * Vitamin B6 Lvl 04/22/22 Future Scheduled Tests Laboratory* Hemoglobin and Hematocrit 09/21/21 [facility]09-17-2022 Evaluation + Plan noteExtracted from: Title:ED [...] Scheduled Tests Laboratory* Hemoglobin and Hematocrit 09/21/21 [facility]09-17-2022 Hospital Discharge instructions Patient Education 02/05/2022 01:44:13 Cellulitis, Adult, Xmtt-js-Xnyk Cellulitis, Adult Cellulitis is a skin infection. [...] Follow these instructions at home: Medicines Take wzut-fki-gtbseah and prescription medicines only as told by [...] 10/24/2008 Document Revised: 09/27/2018 Document Reviewed: 09/27/2018 [employer] Patient Education 2020 [employer]. Follow Up Care 02/04/2022 23:28:13 With:Gabo Monsalve [...] 2 to 3 days With:Cinda CORONEL Address: [address] [place] [phone] Business (1) When:02/08/2022 [facility]06-09-2022 Evaluation + Plan note Diagnostic Tests Pending * EDNA w/Reflex if POS 10/28/21 * Vitamin E Level 10/28/21 * Antineutrophil Cytoplasmic Antibody 10/28/21 * C3 Complement 10/28/21 * C4 Complement 10/28/21 * Cryoglobulin Qualitative with Quantitative Reflex 10/28/21 * Antiextractable Nuclear Antigen 10/28/21 * Vitamin B6 Lvl 10/28/21 Future Scheduled Tests Laboratory* Hemoglobin and Hematocrit 09/21/21 [facility]05-03-2022 Hospital Discharge instructions Patient Education 09/21/2021 14:07:00 Hypotension, Atpr-iw-Xxmn Hypotension As your heart beats, it forces [...] up quickly after you eat. Medicines Take iqru-zts-hifdkow and prescription medicines only as told by [...] 08/02/2010 Document Revised: 11/01/2018 Document Reviewed: 11/01/2018 [employer] Patient Education 2020 [employer] Follow Up Care 09/21/2021 13:31:06 With:Cinda CORONEL Address: [address] [place], [place] [phone] Business (1) When:09/24/2021 13:51:06 [facility]05-03-2022 Hospital Discharge instructions Patient Education 09/21/2021 [...] 3 times a day. General instructions Take nahi-oga-uottuoe and prescription medicines only as told by [...] 05/05/2001 Document Revised: 10/04/2019 Document Reviewed: 09/27/2018 [employer] Patient Education 2020 [employer] 09/21/2021 12:54:47 High-Fiber Diet High-Fiber Diet [...] per serving. Talk with a diet and nutrition representative (dietitian) if you have questions about specific [...] Bulgur wheat. Millet. Quinoa. Bran muffins. Popcorn. Lagrange wafer crackers. Meats and other proteins Kinsey, kidney, and kwan beans. Soybeans. Split peas. [...] Cream cheese. Sour cream. Fats and oils Helen. Beverages Soft drinks. Other foods Cakes and [...] 05/08/2006 Document Revised: 03/12/2018 Document Reviewed: 03/12/2018 [employer] Patient Education 2020 [employer]. 09/21/2021 12:54:43 Diverticulosis Diverticulosis Diverticulosis is a [...] overweight. Not getting enough exercise. Smoking. Taking wjru-wsi-mfzazzj pain medicines, like aspirin and ibuprofen. Having [...] health care provider or your diet and nutrition representative (dietitian). ?Take a fiber supplement or probiotic, if your health care provider approves. Take ontc-axr-uqnpzqt and prescription medicines only as told by [...] 02/02/2005 Document Revised: 04/20/2018 Document Reviewed: 03/27/2017 [employer] Patient Education [employer]. Follow Up Care 09/09/2021 14:08:18 With:Julianne Brar CNP Address: When:3 months [facility] 05-03-2022 Evaluation + Plan note Future Scheduled Tests Laboratory* Hemoglobin and Hematocrit 09/21/21 [facility] 05-03-2022 Evaluation + Plan noteExtracted from: Title:ED Note Author:Sarah Higgins PA-C Date:09/21/21 1. Encounter for medical scr eening [...] Scheduled Tests Laboratory* Hemoglobin and Hematocrit 09/21/21 [facility]05-03-2022 Evaluation + Plan note Future Scheduled Tests Laboratory* Hemoglobin and Hematocrit 09/21/21 [facility]04-15-2022 Hospital Discharge instructions Patient Education 09/03/2021 09:32:57 Colonoscopy, Care After Surgery Salam (CUSTOM) Colonoscopy Care After Surgery Please read the instructions outlined below and refer to this sheet in the next few weeks. These discharge instructions provide you with general information on caring for yourself [facility] Your doctor may also give you specific [...] unsweetened, w/added ascorbic acid 1 cup 0.5 [place] 1 cup 0.7 Vegetables Cooked Green beans 1 cup 4.0 Carrots 1/2 cup sliced 2.3 Peas 1 cup 8.8 Potato (baked, with skin) 1 medium potato 3.8 Raw [place] (with peel) 1 cucumber 1.5 Lettuce 1 [...] 8.7 Peanuts 1/2 cup 7.9 Chart from [facility] 2013. SEEK IMMEDIATE MEDICAL CARE [...] Reference. Available at http://www.nal.usda.gov/fnic/foodcomp/search/. Information adapted from: [facility] Patient Information 2010 [facility]. [facility] Center[facility] 2013 http://www.[employer]/contents/zwyvywtpxdny-zmjpaov-fqfcnq-the-basics 09/03/2021 09:32:57 Hemorrhoids Hemorrhoids Hemorrhoids are swollen [...] 3 times a day. General instructions Take zenj-veg-rolvhqh and prescription medicines only as told by [...] 05/05/2001 Document Revised: 10/04/2019 Document Reviewed: 09/27/2018 [employer] Patient Education 2020 [employer]. [facility]11-05-2015 Miscellaneous Notes* Telephone Encounter - Juliana [...] March 19 * Telephone Encounter - Juliana AndersonRn), RN - 03/04/2015 1:39 PM EDT [facility] Patient doing very well , ambulating 150 feet with wheeled walker and stand-by assist. Understands her hip precautions. Incision dry and intact. Pain ranging around a 5. Anticipate discharge home on Wednesday 03/07 documented in this encounterTrumbull Regional Medical CenterEvaluation + Plan note No data available for this section [facility] note Future Appointments Appointment Date:01/20/2023 11:15:00 AM Scheduled Provider: Location:[place].PHYSICAL [place] Appointment Type:PT Eval (FT) Diagnostic Tests Pending * PTH Intact 11/21/22 [facility] noteNo assessment information available [facility] Work Phone: Evaluation note* Diagnosis MRSA [...] with negative rheumatoid factor, involving unspecified site ([facility]) Primary osteoarthritis of left knee Primary localized osteoarthrosis, lower leg documented in this encounter [facility]* Diagnosis Primary osteoarthritis of left knee- Primary Primary localized osteoarthrosis, lower leg Primary osteoarthritis of left knee Primary localized osteoarthrosis, lower leg documented in this encounter [facility] Diagnosis Pre-op evaluation- Primary Preoperative examination, unspecified Cerebrovascular accident (CVA), unspecified mechanism (HCC) Deep vein thrombosis (DVT) of popliteal vein of left lower extremity, unspecified chronicity (HCC) Rheumatoid arthritis, involving unspecified site, unspecified whether rheumatoid factor present (HCC) Obesity without serious comorbidity, unspecified classification, unspecified obesity type S/P patent foramen ovale closure Other postprocedural status Hypertension, unspecified type Pulmonary hypertension (HCC) Other chronic pulmonary heart diseases Primary osteoarthritis of left knee Primary localized osteoarthrosis, lower leg [facility] Diagnosis Onset Date Resolution Status Anemia acute Chronic back pain acute Chronic hyponatremia acute CKD (chronic kidney disease) acute Hyperlipidemia acute Hypertension acute Impaired mobility and activities of daily living acute Postoperative wound infection acute Pulmonary hypertension acute Rheumatoid arthritis acute S/P total knee arthroplasty acute [facility] Work Phone: Evaluation note* Diagnosis S/P total knee replacement, left- Primary documented in this encounter [facility] Discharge instructions No data available for this section [facility] No data available for this section [facility] - Pending Review Specialty Diagnoses / Procedures Referred By Jonny love Referred To Contact Physical Therapy Diagnoses Primary osteoarthritis of left knee Procedures [place] [address] [place] [id number] Referral ID Status Reason Start Date Expiration Date V isits Requested Visits Authorized [id number] Pending Review 10/27/2022 01/25/2023 1 1 * Diagnostic Procedure Only (Routine) - Closed Specialty Diagnoses / Procedures Referred By Jonny love Referred To Contact XR IMAGING Diagnoses Status post bilateral knee replacements Procedures XR KNEE GENERAL 4V AP BOTH/PA BOTH/LAT/MERC BILATERAL RADIOLOGIC EXAM KNEE COMPLETE 4/MORE VIEWS Shan Box MD [address] [place] [address] Xr Imaging Referral ID Status Reason Start Date Expiration Date V isits Requested Visits Authorized [id number] Closed Auto-Generate d Referral 10/25/2022 11/24/2023 1 1 [facility] for referral (narrative)* - Pending Review Specialty Diagnoses / Procedures Referred By Jonny love Referred To Contact Physical Therapy Diagnoses Primary osteoarthritis of left knee Procedures CONSULT TO PHYSICAL THERAPY Shan Box MD [address] [place] [address] Referral ID Status Reason Start Date Expiration Date V isits Requested Visits Authorized [id number] Pending Review 11/21/2022 02/19/2023 1 1 [facility] Diagnostic Procedure Only (Routine) - Closed Specialty Diagnoses / Procedures Referred By Contac t Referred To Contact XR IMAGING Diagnoses S/P total knee replacement, left Procedures XR KNEE POST OP 3V AP/LAT/MERCHANT LEFT RADIOLOGIC EXAMINATION KNEE 3 VIEWS Shan Box MD [address] [place] [address] [place] [address] Referral ID Status Reason Start Date Expiration Date V isits Requested Visits Authorized [id number] Closed Auto-Generate d Referral 04/06/2023 05/05/[address] [facility] Summary Purpose Family History No Family History [...] Documents on File Type Date Recorded Patient Cloth Shrinking Tester Expl anation Advance Directive(s) 01/17/2023 6:23 AM Documents on File Type Date Recorded Patient Cloth Shrinking Tester Expl anation Advance Directive(s) 01/17/2023 6:23 AM Documents on File Type Date Recorded Patient Cloth Shrinking Tester Expl anation Power of Playground Aide 11/02/2022 4:40 PM Advance Directives and Livin [...] section and content) DATE CREATED AUTHOR 12/17/2017 [facility] DATE CREATED AUTHOR AUTHOR'S ORGANIZ ATION 03/19/2021 [facility] DATE CREATED AUTHOR AUTHOR'S ORGANIZ ATION 04/16/2021 [facility] DATE CREATED AUTHOR AUTHOR'S ORGANIZ ATION 07/21/2021 [facility] dical Specialist DATE CREATED AUTHOR AUTHOR'S ORGANIZ ATION 11/10/2022 [facility] DATE CREATED AUTHOR AUTHOR'S ORGANIZ ATION 01/23/2023 [facility] DATE CREATED AUTHOR AUTHOR'S ORGANIZ ATION 04/13/2023 [facility] DATE CREATED AUTHOR AUTHOR'S ORGANIZ ATION 07/07/2023 [facility] dical Specialists EPIC DATE CREATED AUTHOR AUTHOR'S ORGANIZ ATION 07/09/2023 [facility] DATE CREATED AUTHOR AUTHOR'S ORGANIZ ATION 08/18/2023 [facility] Source Comments (unrecognize d section and content) In the event this informatio n is protected by the Federal Confidentiality of Alcohol and Drug Abuse Patient Records regulations: The Federal rules restrict any use of the information to criminally investigate or prosecute any alcohol or drug abuse patient.[facility] the event this information is protected by the Federal Confidentiality of Alcohol and Drug Abuse Patient Records regulations: The Federal rules restrict any use of the information to criminally investigate or prosecute any alcohol or drug abuse patient.[facility] the event this information is protected by the Federal Confidentiality of Alcohol and Drug Abuse Patient Records regulations: The Federal rules restrict any use of the information to criminally investigate or prosecute any alcohol or drug abuse patient.[facility] the event this information is protected by the Federal Confidentiality of Alcohol and Drug Abuse Patient Records regulations: The Federal rules restrict any use of the information to criminally investigate or prosecute any alcohol or drug abuse patient.[facility] the event this information is protected by the Federal Confidentiality of Alcohol and Drug Abuse Patient Records regulations: The Federal rules restrict any use of the information to criminally investigate or prosecute any alcohol or drug abuse patient.[facility] the event this information is protected by the Federal Confidentiality of Alcohol and Drug Abuse Patient Records regulations: The Federal rules restrict any use of the information to criminally investigate or prosecute any alcohol or drug abuse patient.[facility] the event this information is protected by the Federal Confidentiality of Alcohol and Drug Abuse Patient Records regulations: The Federal rules restrict any use of the information to criminally investigate or prosecute any alcohol or drug abuse patient.[facility] Reason for Visit (unrecogniz ed [...] Dates Leonel Aguirre MD Attending Provider Active Employee Relations Specialist Relationship Specialty Start Date End Date Cinda Coronel [address] [address] PCP - General Family Medicine 03/12/18 Employee Relations Specialist Relationship Specialty Start Date End Date Berna, Cinda Soliz [address] [place] [address] PCP - General Family Medicine 03/12/18 Employee Relations Specialist Relationship Specialty Start Date End Date Cinda Coronel [address] [place] [address] PCP - General Family Medicine 03/12/18 Employee Relations Specialist Relationship Specialty Start Date End Date Cinda Coronel [address] [place] [address] PCP - General Family Medicine 03/12/18 Team Status: Active Member Role Status Dates PHYSICIAN NO FAMILY Primary Care Provider Active Team Status: Inactive Member Role Status Dates PHYSICIAN NO FAMILY Primary Care Provider Active Syd Muir MD Admit Provider, Attending Provider A hortensia Cruz , RN Other Provider Active Nathalie Mack , OTIS Other Provider Active Rasheeda Olsen , RN Other Provider Active Abril Durán , OTIS Other Provider Active Clarissa Souza , OTIS Other Provider Active Fadumo Virk , OTIS Other Provider Active Will Brown MD Other Provider Active Staci Dowell CASING PULLER Other Provider Active Guerline Hickman , DO [...] MD Other Provider Active Diane Gross , 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 Other Provider Active Enrique Rousseau MD Other Provider Active Conrad Davison MD Other Provider Active Montez Velazquez MD Other Provider Active Malcolm Burgos MD Other Provider Active Shantell Patterson , DO Other Provider Active Carlos Garcia , DO Other Provider Active Wm Belle , DO Other Provider Active Kiki Michel APRN Other Provider Active Coy Arias , DO Other Provider Active Louis Franklin MD Other Provider Active Yari Solozrano APRN Other Provider Active Shira Sosa APRN Other Provider Active Christina Cross MD Other Provider Active Saul Rucker MD Other Provider Active Juliana Mcintyre APRN Other Provider Active Bhumi Jacques , OTIS Other Provider Active Employee Relations Specialist Relationship Specialty Start Date End Date Cinda Coronel, PA-C [address] [place] [address] PCP - General Family Medicine 03/12/18 Team Status: Inactive Member Role Status Dates PHYSICIAN NO FAMILY Primary Care Provider Active Syd Muir MD Admit Provider, Attending Provider A hortensia Cruz , OTIS Other Provider Active Nathalie Mack , OTIS Other Provider Active Rasheeda Olsen , OTIS Other Provider Active Abril Durán , OTIS Other Provider Active Clarissa Souza , OTIS Other Provider Active Fadumo Vrik , OTIS Other Provider Active Will Brown MD Other Provider Active Staci Dowell , CASING PULLER Other Provider Active Guerline Hickman , DO Other Provider Active Levar Rodriguez MD Other Provider Active Tom Jenkins , DO Other Provider Active Sotero Daley MD Other Provider Active Sue Beasley MD Other Provider Active Ivy Gannon CASING PULLER Other Provider Active Pema Patel MD Other Provider Active Brown Young MD Other Provider Active Simi Alcaraz MD Other Provider Active Annia Esparza MD Other Provider Active Shan Hou , DO Other Provider Active Mihaela Brown MD Other Provider Active Robin Randhawa MD Other Provider Active Diane Gross , 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 Other Provider Active Enrique Rousseau MD Other Provider Active Conrad Davison MD Other Provider Active Montez Velazquez MD Other Provider Active Malcolm Burgos MD Other Provider Active Shantell Patterson , DO Other Provider Active Carlos Garcia , DO Other Provider Active Wm Belle , DO Other Provider Active Kiki Michel CASING PULLER Other Provider Active Coy Arias , DO Other Provider Active Louis Franklin MD Other Provider Active Yari Solorzano CASING PULLER Other Provider Active Shira Sosa , CASING PULLER Other Provider Active Christina Cross MD Other Provider Active Saul Rucker MD Other Provider Active Juliana Mcintyre CASING PULLER Other Provider Active Bhumi Jacques , OTIS Other Provider Active Team Status: Inactive Member Role Status Dates PHYSICIAN NO FAMILY Primary Care Provider Active Leonel Aguirre MD Attending Provider Active Employee Relations Specialist Relationship Specialty Start Date End Date Cinda Coronel, PA-C [facility] [place] [address] PCP - General Family Medicine 03/12/18 Employee Relations Specialist Relationship Specialty Start Date End Date IlianaWildaAlysiaritu Hernandez DO [address] [place] [address] PCP - General Family Medicine 10/31/22 Goals [...] BE BASED ON THE PRIMARY CLINICAL RECORDS. [facility] [employer] provides no warranty or guarantee of the accuracy or completeness of information in this document.
== END 2023-08-22 14:49 | disposition home or self-care (01) ==
LOC: PST 14:48
PROVIDERS: PCP Physician Assistant; Visit Provider Ophthalmology
DX: Z01.818 Encounter for other preprocedural examination (principal); H25.11 Age-related nuclear cataract, right eye; H40.1111 Primary open-angle glaucoma, right eye, mild stage

== ENCOUNTER 2023-08-24 07:05 | Day surgery (SDC) | payer MEDICARE, SELFPAY ==
--- NOTE | 2023-08-24 | OP_ITS ---
OPERATION DATE: 08/24/2023 SURGEON: James Canela M.D. PREOPERATIVE DIAGNOSIS: 1. Nuclear sclerotic cataract right eye. 2. Primary open angle glaucoma, mild severity, right eye. POSTOPERATIVE DIAGNOSIS: 1. Nuclear sclerotic cataract right eye. 2. Primary open angle glaucoma, mild severity, right eye. PROCEDURE NAME: 1. Cataract extraction with intraocular lens placement of the right eye. 2. Hydrus stent insertion right eye. ANESTHESIA: Topical. ESTIMATED BLOOD LOSS: Zero. COMPLICATIONS: None. PROCEDURE: In the preoperative holding area, the patient received topical proparacaine to the right eye and she was sat up in an upright position. It was in this position that the 6 o?clock limbus was marked and this would be referenced for the future site of the Toric lens. The patient was then brought to the Operating Room in supine position. After proper identification, the right eye was prepped and draped in a sterile ophthalmic fashion. A paracentesis created at the 11 o'clock position. Approximately 1 cc of unpreserved Xylocaine was injected into the anterior chamber followed by Amvisc Plus. Using a 2.6 mm Keratome blade, a clear corneal incision was created at the 8 o'clock limbus. A cystotome was then used to begin a curvilinear capsulorrhexis that was continued for 360 degrees with the [employer] forceps. BSS on a 26 gauge cannula was injected beneath the anterior capsule to hydrodissect as well as hydrodelineate the lens. After ensuring mobility, phacoemulsification was performed in a [id number]-type fashion. After all nuclear material had been removed from the eye, IA was introduced and all residual cortical material was cleaned up. Additional Amvisc Plus was injected into the posterior bag to further inflate and pressurize the anterior chamber. Referencing the 6 o?clock limbal karen, the 99 degree axis was found with the [employer] manual Toric Marking System. This was marked for future reference for the Toric lens placement. At this time, steps were taken to move on to the glaucoma stenting procedure. Healon 5 was injected into the anterior chamber to further pressurize and stabilize it. Using the 2.6 mm Keratome blade, the internal lip of the temporal wound was expanded. The patient?s head was rotated away from the surgeon, approximately 20 degrees, while the operating microscope was rotated toward the surgeon, approximately 20 degrees. Amvisc Plus was placed on the surface of the gonioprism, and it was placed on the surface of the eye for good visualization of the trabecular meshwork at the 3 o?clock location. The Hydrus stent was called for and primed and visualized. It was inserted through the temporal wound and guided across the anterior chamber to the trabecular meshwork at the 3 o?clock location. Utilizing the tip of the Hydrus stent, the trabecular meshwork was dissected into, accessing Schlemm?s canal. The stent was then deployed into Schlemm?s canal with a counterclockwise fashion with good visualization. After ensuring stabilization and location, the workplace rehabilitation officer as well as the gonioprism were removed from the eye and the patient?s head was rotated back to more neutral cataract removal position. IA was reintroduced into the anterior chamber and all residual Amvisc Plus and Healon 5 were removed from the eye. Utilizing the tip of the IA, the lens was rotated the final 10 degrees to the 99 degree axis. BSS on a 30 gauge cannula was injected into the stroma of both the clear corneal incision as well as paracentesis to hydrate the wounds. Additional BSS was injected into the anterior chamber to pressurize the eye at approximately 20 to 22 mmHg by finger tension. 0.1 cc of antibiotic was injected into the anterior chamber. Weck-Yulia sponges were used to check the wounds to be watertight. One drop of apraclonidine and one drop of prednisolone acetate were placed into the eye and a shield was placed over top. The patient was sent to the postoperative area in satisfactory condition to follow up the following day for postoperative care. PAT
--- NOTE | 2023-08-24 07:05 | HP_ITS ---
PREOPERATIVE HISTORY AND PHYSICAL ? Date:? 08/23/2023 ? HISTORY:? The patient is a 78-year-old white female with complaints of declining vision out of her right eye.? The gradual onset of this has occurred over the last two years with progressive worsening.? She states having difficulty with night time driving because of headlights creating glare and halos.? She also states having difficulty with reading fine print.? Finally, she states having difficulty with oncoming headlights creating glare and halos. ? Additionally, she presently takes glaucoma therapy for which she is worried that she is having progression of the disease state.? She feels that sometimes she cannot tolerate her drops because of side effects and so, therefore, is not as compliant as she wishes she was.? ? PAST OCULAR HISTORY / PAST MEDICAL HISTORY / SOCIAL HISTORY / MEDICATIONS / ALLERGIES TO MEDICATIONS / REVIEW OF SYSTEMS / PHYSICAL EXAMINATION:? Unchanged from previously dictated. ? ASSESSMENT AND PLAN:? 1.? Visually significant cataract, right eye.? After the risks, benefits, and alternatives as well as expectations were delivered to the patient, she elected to go forward with cataract removal.? She understands those risks to include but not limited to infection, bleeding, loss of vision or loss of the eye itself.? Secondly, she understands that postoperatively she is likely to require spectacle correction for her best visual acuity.? Finally, a complete ophthalmic exam was performed and there was not determined to be any other source of vision decline other than that of cataract.? ? 2.? Primary open angle glaucoma, mild severity, right eye.? After the risks, benefits, and alternatives as well as expectations were delivered to the patient, she elected to go forward with a Hydrus stent insertion.? She understands the risks to include but not limited to those listed for the cataract removal process.? In addition to these, she understands that she is at greater risk for possible bleeding inside of the eye, either during or postoperatively of the procedure.? She also understands this does not guarantee the progression of the disease of glaucoma, nor does it guarantee that she will eliminate the need for drops.? ? After understanding all risks as well as expectations, she elected to go forward with the procedures as listed above and will be doing so in the near future. ? PAT
[2023-08-24] MEDS: PROPARACAINE HCL 0.5% 300 DROP/15 ML BOTTLE EYE-RIGHT (07:10)
[2023-08-24] MEDS: TROPICAMIDE 1% OP SOL 300 DROP/15 ML BOTTLE EYE-RIGHT ×4 (07:10→07:33)
[2023-08-24] MEDS: PHENYLEPHRINE HCL 2.5% OP SOL 40 DROP/2 ML BOTTLE EYE-RIGHT ×4 (07:10→07:34)
[2023-08-24] MEDS: BESIFLOXACIN HCL 100 DROP DROPS.SUSP OP ×4 (07:10→07:34)
--- OUTSIDE RECORDS SUMMARY | 2023-08-24 07:10 | XMS_ITS | CCD ---
Author Organization [facility] Care Team Providers Care Spring Maker Name Role Phone UNKNOWN, PROVIDER Unavailable Unavailable [...] Unavailable Samantha Murphy Primary Care Provider [phone] Cinda Coronel Primary Care Provider RICCO MOSER Attending Unavailable EHSAN, RICCO Admitting Unavailable MISKarla, DOCTOR Consulting Unavailable EHSAN, RICCO Attending Unavailable EHSAN, RICCO Admitting Unavailable EHSAN, RICCO Consulting Unavailable Rossy CORONELh Janet Primary Care Physician [phone] Mercedes Kelley Unavailable Unavailable Seamus, Staci Unavailable Unavailable MD Leonel Aguirre Attending Provider [phone] MD Leonel Aguirre Attending Provider [phone] Cinda Coronel Primary Care Provider RICCO MOSER [...] Provider MD Robin Randhawa Other Provider Ginny PATTERN GRADER CUTTER-C Diane Gonzales Other Provider [phone] MD [...] Other Provider DO Guerline Hickman Other Provider [phone] MD Levar Rodriguez Other Provider DO Tom Jenkins Other Provider MD Sotero Daley Other Provider [phone] MD Sue Beasley Other Provider [phone] TRAY Gannon Other Provider MD Pema Patel [...] Other Provider DO Carlos Garcia Other Provider [phone] DO Wm Belle Other Provider TRAY Michel Other Provider DO Coy Arias Other Provider MD Louis Franklin Other Provider TRAY Solorzano Other Provider TRAY Sosa Other Provider MD Christina Cross Other Provider MD Saul Rucker Other Provider TRAY Mcintyre Other Provider OTIS Jacques Other Provider Unavailable MD Leonel [...] Primary Care Provider AURY BASS Attending Unavailable Cinad CORONEL Admitting Unavailable REFERRAL, SELF Referring Unavailable Cinda CORONEL Attending Unavailable Cinda CORONEL Consulting Unavailable CARMEL CORONEL Consulting Unavaila THOMAS Curiel Consulting Unavailable LEONEL AGUIRRE Attending Unavailable LEONEL AGUIRRE Admitting Unavailable COOKIE QUIROZ Attending Unavailable COKOIE QUIROZ Admitting Unavailable LEONEL AGUIRRE Consulting Unavailable [...] Care Unavailabl e BERNA, CINDA SOLIZ Primary [facility] Unavailabl e JOUN, SHAN Acosta Referring Unavailable BERNA, CINDA SOLIZ Primary Care Unavailabl e AVTAR RICO Wolf Referring Unavailable KOLCZUN, SHAN Acosta Referring Unavailable BERNA, CINDA SOLIZ Primary [facility] Unavailabl e KOLCZUN, SHAN Acosta Referring Unavailable BERNA, CINDA SOLIZ Primary Care Unavailabl e BERNA, CINDA FRANKLYN [facility] Unavailabl e SCOTCH, JUDIT Attending Unavailable BERNA, CINDA SOLIZ Primary [facility] Unavailabl e SCOTCH, JUDIT Referring Unavailable SCOTCH, JUDIT Attending Unavailable BERNA, CINDA SOLIZ [facility] Unavailabl e BERNA, CINDA FRANKLYN [facility] Unavailabl e KOLCZUN, SHAN Acosta Attending Unavailable BERNA, CINDA SOLIZ [facility] Unavailabl e Allergies Allergy Classification Reported Allergen(s) Allergy Type Date of Onset Reaction(s) Facility Anti-Epileptic Agents (1 source) gabapentin Drug Allergy 5 Other: See Comments [facility] NSAIDs (1 source) celecoxib Drug Allergy 7 Hives, Swelling [facility] rofecoxib (1 source) rofecoxib Drug Allergy 7 Cough [facility] (2 sources) celecoxib; Translations: [Celebrex] Drug Allergy 6 AOF [facility] Repository (7 sources) gabapentin; Translations: [GABAPENTIN] Drug Allergy 5 AOF, Weakness [facility] Repository (16 sources) rofecoxib; Translations: [vioxx] Drug Allergy 6 Aptyalism (disorder) [facility] Repository (2 sources) Sulfonamides (Antibiotic); Translations: [SULFA (SULFONAMIDE ANTIBIOTICS)] Drug allergy (disorder) 6 AOF [facility] Repository (20 sources) celecoxib; Translations: [celecoxib] Drug Allergy 7 Hives, Swelling [facility] (20 sources) gabapentin; Translations: [gabapentin] Drug Allergy 5 Falls (finding), Other: See Comments, Other, Unknown [facility] (15 sources) Sulfonamides (Antibiotic); Translations: [sulfa drugs] Drug allergy unknown [facility] (11 sources) rofecoxib; Translations: [ROFECOXIB] Drug Allergy 7 Cough [facility] (1 source) celecoxib Drug Allergy 3 [facility] Repository (1 source) gabapentin Drug Allergy 3 [facility] Repository (1 source) rofecoxib Drug Allergy 3 [facility] Repository (1 source) celecoxib Drug Allergy 7 Hives, Swelling, Rash [facility] (1 source) rofecoxib Drug Allergy 7 Cough, Unknown [facility] (1 source) Sulfonamides (Antibiotic) Drug Allergy 3 Unknown [facility] Healthcare Medications Current Medications Medication Drug Class(es) [...] source) Opioid Agonist Start: 2 End: 2 Colver 325 mg-5 mg oral tablet 1 tab(s), [...] Daily, # 90 tab(s), Refills(s) 1, [id number] 154.5, cm, 04/10/19 15:59:00 EST, Height/Length Measured, 84.1, kg, 04/10/19 15:59:00 EST, Weight Measured Start Date: 07/18/19 Status: Ordered azithromycin 500 mg oral tablet (7 sources) Macrolide Antimicrobial Start: 05-18-2022 take 1 tablet by mouth once daily azithromycin 500 mg oral tablet 500 mg = 1 tab(s), Oral, Daily, # 3 tab(s), Refills(s) 0, [id number] 154, cm, 05/14/22 19:49:00 EST, Height/Length Dosing, 72.8, kg, 05/14/22 19:49:00 EST, Weight Dosing Start Date: 05/18/22 Status: Ordered benzonatate 100 mg oral capsule (7 sources) Non-narcotic Antitussive Start: 05-18-2022 take 2 capsules by mouth three times daily as needed for cough Tessalon 100 mg Cap 200 mg = 2 cap(s), Oral, TID, PRN Cough, # 20 cap(s), Refills(s) 0, [id number], cm, 05/14/22 19:49:00 EST, Height/Length [...] day(s), # 9 cap(s), Refills(s) 0, Pharmacy: [facility]acy #[id number], 154, cm, 05/14/22 19:49:00 EST, Height/Length [...] 8:35am Start: 12-23-2022 take 1 capsule by [facility] once daily Cholecalciferol, Vitamin D3, (VITAMIN D-3) 50 mcg (2,000 unit) cap Take 1 capsule by mouth once daily. 0 12/23/2022 Active take 1 capsule by [facility] in the morning cholecalciferol (Vitamin D-3) 50 MCG (1999 UT) capsule Take 2,000 Units by mouth in the morning. 0 Active Comment on above: Take 1 capsule by mo [facility] once daily. ferrous sulfate 324 mg delayed release oral tablet (10 sources) Start: 02-10-2023 Ferrous Sulfate Active 324 MG PO Q48H 15 February 09, 2023 11:00pm Start: 05-18-2022 take 1 tablet by [facility] once daily ferrous sulfate 325 mg Tab 325 mg = 1 tab(s), Oral, Daily, # 30 tab(s), Refills(s) 0, Pharmacy: [facility]/pharmacy #[id number], 154, cm, 05/14/22 19:49:00 EST, Height/Length Dosing, 72.8, kg, 05/14/22 19:49:00 EST, Weight Dosing Start Date: 05/18/22 Status: Ordered Start: 02-26-2015 End: 07-02-2015 take 1 tablet by mouth twice daily at mealtime ferrous sulfate 325 mg (65 mg iron) tablet Take 1 tablet by mouth twice daily with meals. 30 tablet 0 02/26/2015 07/02/2015 Discontinued Comment on above: Take 1 tablet by [facility] twice daily with meals. folic acid [...] day(s), # 12 tab(s), Refills(s) 0, Pharmacy: [facility]/pharmacy #[id number], 154, cm, 05/14/22 19:49:00 EST, Height/Length [...] Daily, # 90 tab(s), Refills(s) 1, Pharmacy: [facility]/pharmacy #[id number], 154.5, cm, 04/10/19 15:59:00 EST, Height/Length [...] day(s), # 21 tab(s), Refills(s) 0, Pharmacy: [facility]/pharmacy #[id number], 154, cm, 05/14/22 19:49:00 EST, Height/Length [...] on above: Take 1 capsule by mo [facility] twice daily as needed for constipation. hydroxychloroquine [...] tabs on Mondays [facility]. 6 tablets ONCE WEEKLY oxyCODONE [...] disease (6 sources) Atherosclerotic heart disease of [place] coronary artery without angina pectoris; Translations: [ATHSCL HEART DISEASE OF [place] CORONARY ARTERY W/O ANG PCTRS] Onset: 12-21-2016 [...] current use of drug therapy; Translations: [Other usp (current) drug therapy] Episodic Other and ill-defined [...] 12-23-2014 12-23-2014 Episodic Other aftercare (2 sources) [facility] (current) use of antithrombotics/antip latelets; Translations: [[facility] (current) use of aspirin] Onset: 12-21-2016 Episodic Other aftercare (7 sources) Surgical follow-up; Translations: [Encounter for follow-up examination after completed treatment for conditions other than malignant neoplasm] Onset: 10-06-2006 10-06-2006 Episodic Other aftercare (1 source) Other [facility]p (current) drug therapy; Translations: [Other [employer] (current) drug therapy] Onset: 04-27-2022 Episodic Other [...] Test Name Value Interpretation Reference Range Facility [facility] 08-16-2023 CNOV Office Visit (LOORRM ) -- MAKSIMKIKI Issac ([id number]) 1945 F Date Time Provider Department 08/16/23 [...] Order(s):XR KNEE POST OP 3V AP/LAT/ADIT LEFT [[id number]] Order #: [id number] FUTURE Prescriptions as of 08/16/2023 - oxyCODONE [...] joint disease of pelvic region [M1*02/24/2015 Stroke ([facility]) [I63.9] DVT of popliteal vein ([facility]) [I82.439] S/P patent foramen ovale closure [Z87.74] 12/23/2022 Hypertension [I10] Pulmonary hypertension ([facility]) [I27.20] 06/28/2016 Primary osteoarthritis of left knee [M17.12] 12/23/2022 Obesity, Class I, BMI 30-34.9 [E66.9] 01/16/2023 Status post total left knee replacement [Z96.65*01/17/2023 KAMI (acute kidney injury) ([facility]) [N17.9] 01/18/2023 01/19/2023 Hyponatremia [E87.1] 01/18/2023 Hyperkalemia [E87.5] 01/18/2023 01/19/2023 S/P total knee replacement, left [Z96.652] 01/18/2023 Hypomagnesemia [E83.42] 01/19/2023 01/19/2023 Encounter Status:Closed by SHAN BOX II on 08/16/23 [facility] 3V AP/LAT/MERCHANT L Ton [...] other significant abnormality. IMPRESSION: NO SIGNIFICANT CHANGE Entry Level Staff Accountant: MAGDALENE Transcribe Date/Time: Aug 16 2023 12:26P Dictated by : BARB VALLADARES MD This examination was interpreted and the report reviewed and electronically signed by: BARB VALLADARES MD on Aug 16 2023 12:27PM EST [id number] Normal [facility] CBC w/ Auto Diffon 4 Basophil Absolute 0.0 E9/L Normal 0.0-0.2 [facility] Comment on above: Performed By: #### 2 696792, 6847834, 33299516, 50578233, 3815574 #### [facility] [address] [place] [address] Basophils/100 WBC (Bld) 0.2 % Normal 0.0-2.0 [facility] Comment on above: Performed By: #### 2 464606, 6679294, 75072263, 64019961, 2956124 #### [facility] [address] [place] [address] Eos Absolute 0.1 E9/L Normal 0.0-0.5 [facility] Comment on above: Performed By: #### 2 032402, 5971941, 18851858, 42630340, 3813056 #### [facility] [address] [place] [address] Eosinophils/100 WBC (Bld) 0.5 % Normal 0.0-8.0 [facility] Comment on above: Performed By: #### 2 261493, 2252232, 84836047, 76485679, 2550584 #### [facility] [address] [place] [address] Erythrocyte distribution width (RBC) [Ratio] 14.1 % Normal 10.9-14.2 [facility] Comment on above: Performed By: #### 2 540136, 6755099, 66211449, 93524444, 4560864 #### [facility] [address] [place] [address] Hematocrit (Bld) [Volume fraction] 34.0 % Normal 34.0-46.0 [facility] Comment on above: Performed By: #### 2 788433, 9212033, 63659983, 60897872, 1929150 #### [facility] [address] [place] [address] Hemoglobin (Bld) [Mass/Vol] 11.3 g/dL Low 12.0-16.0 [facility] Comment on above: Performed By: #### 2 717793, 5890639, 05989235, 25851371, 1418782 #### [facility] [address] [place] [address] Lymph Absolute 1.3 E9/L Normal 1.0-4.0 [facility] Comment on above: Performed By: #### 2 232202, 9959666, 75843039, 11403508, 6771891 #### [facility] [address] [place] [address] Lymphocytes/100 WBC (Bld) 14.6 % Normal 14.0-50.0 [facility] Comment on above: Performed By: #### 2 940587, 6044017, 01245805, 70079713, 3048640 #### [facility] [address] [place] [address] MCH (RBC) [Entitic mass] 33.4 pg Normal 27.0-34.0 [facility] Comment on above: Performed By: #### 2 748825, 8814037, 84085449, 29350776, 7418672 #### [facility] [address] [place], [place] [address] MCHC (RBC) [Mass/Vol] 32.9 g/dL Normal 31.4-36.0 [facility] Comment on above: Performed By: #### 2 593858, 8000396, 62507663, 94195020, 7347174 #### [facility] [address] [place], [place] [address] MCV (RBC) [Entitic vol] 101.5 fL High 80.0-100.0 [facility] Comment on above: Performed By: #### 2 034503, 6135037, 05081589, 32423933, 8737562 #### [facility] [address] [place], [place] [address] [place] Absolute 0.6 E9/L Normal 0.2-1.0 [facility] Comment on above: Performed By: #### 2 689739, 0965042, 92412747, 33076788, 5735734 #### [facility] [address] [place], [place] [address] Monocytes/100 WBC (Bld) 6.3 % Normal 4.0-14.0 [facility] Comment on above: Performed By: #### 2 114992, 3990298, 57512130, 63914653, 3609739 #### [facility] [address] [place] [address] Neutro Absolute 7.2 E9/L Normal 2.0-7.5 [facility] Comment on above: Performed By: #### 2 033389, 8071967, 70201797, 91233397, 8261781 #### [facility] [address] [place] [address] Neutro Auto 78.4 % High 36.0-75.0 [facility] Comment on above: Performed By: #### 2 315370, 0167959, 13859302, 55666144, 4294656 #### [facility] [address] [place] [address] Platelet 270.0 E9/L Normal 150.0-500. 0 [facility] Comment on above: Performed By: #### 2 681697, 2801633, 18552149, 51757428, 2558125 #### [facility] [address] [place] [address] Platelet mean volume (Bld) [Entitic vol] 7.8 fL Normal 6.4-10.8 [facility] Comment on above: Performed By: #### 2 092150, 0957096, 75074131, 18000267, 1873176 #### [facility] [address] [place] [address] RBC 3.4 E12/L Low 4.3-5.9 [facility] Comment on above: Performed By: #### 2 582848, 3586934, 91426876, 03624396, 6135410 #### [facility] [address] [place] [address] WBC 9.2 E9/L Normal 4.0-11.0 [facility] Comment on above: Performed By: #### 2 143254, 8435537, 43455176, 35172085, 4123359 #### [facility] [address] [place] [address] Consent for Treatmenton 06-22 Consent for Treatment [id number]#1.00TIFF Normal [facility] Creatinineon 07-07-2023 Creatinine [Mass/Vol] 1.2 mg/dL Normal 0.5-1.3 [facility] Comment on above: Performed By: #### 2 176095, 9540966, 59727484, 54202637, 6704659 #### [facility] [address] [place] [address] Hep Func Panelon 07-07-2023 Albumin [Mass/Vol] 4.3 g/dL Normal 3.3-5.0 [facility] Comment on above: Performed By: #### 2 869642, 1899725, 05114180, 68966933, 1388972 #### [facility] [address] [place] [address] Albumin/Globulin [Mass ratio] 1.7 {ratio} Normal 1.1-2.2 [facility] Comment on above: Performed By: #### 2 815573, 4397346, 52883179, 26598078, 0564656 #### [facility] [address] [place] [address] Alk Phos 105 Int._Unit/L High 21-98 [facility] Comment on above: Performed By: #### 2 315522, 5664707, 45674778, 78262895, 9740922 #### [facility] [address] [place] [address] ALT 23 Int._Unit/L Normal 6-46 [facility] Comment on above: Performed By: #### 2 945508, 8573308, 39539821, 06065938, 9669568 #### [facility] [address] [place] [address] AST 28 Int._Unit/L Normal 5-43 [facility] Comment on above: Performed By: #### 2 011200, 2807474, 79433460, 79588535, 0805909 #### [facility] [address] [place] [address] Bili Direct 0.2 mg/dL Normal 0.0-0.4 [facility] Comment on above: Performed By: #### 2 776282, 4020079, 74574684, 35568306, 4234954 #### [facility] [address] [place] [address] Bili Indirect 0.4 mg/dL Normal 0.1-0.9 [facility] Comment on above: Performed By: #### 2 106758, 7214567, 02707772, 96319304, 9313400 #### [facility] [address] [place] [address] Bili Total 0.6 mg/dL Normal 0.0-1.1 [facility] Comment on above: Performed By: #### 2 938330, 5061315, 62357121, 03682079, 6841412 #### [facility] [address] [place] [address] Globulin (S) [Mass/Vol] 2.5 g/dL Normal 1.4-4.0 [facility] Comment on above: Performed By: #### 2 295614, 0268023, 15277286, 82384696, 0849683 #### [facility] [address] [place] [address] Protein [Mass/Vol] 6.8 g/dL Normal 6.0-7.8 [facility] Comment on above: Performed By: #### 2 056740, 2595306, 31234873, 23959320, 3751028 #### [facility] [address] [place] [address] Physician Orderon 07-07-2023 Physician Order [id number]#1.00TIFF Normal [facility] Sed Rate Automatedon 024 ESR (Bld) [Velocity] 14 mm/h Normal 0-34 Fish er [facility] Comment on above: Performed By: #### 2 942935, 0492181, 00540815, 83983915, 0109512 #### [facility] [address] [place] [address] eGFRon 07-07-2023 eGFR 46 mL/min/1.73 m2 Low >=59 [facility] Comment on above: Order Comment: Order added by Discern Expert. Performed By: #### 2 816751, 3323615, 65028502, 15446072, 0717223 #### [facility] [address] [place] [address] CNOVon 04-17-2023 CNOV Office Visit (LOORRM ) -- KIKI MOORE ([id number]) 1945 F Date Time Provider Department 04/17/23 [...] Order(s):XR KNEE POST OP 3V AP/LAT/MERCHANT LEFT [[id number]] Order #: [id number] FUTURE Prescriptions as of 04/17/2023 - oxyCODONE [...] [R06.83] Back pain [M54.9] RA (rheumatoid arthritis) ([facility]) [M06.9] Arthritis of left hip [M16.12] 12/23/2014 Spondylolisthesis of lumbar region [M43.16] 12/23/2014 Lumbar stenosis with neurogenic claudication [M*12/23/2014 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 Stroke ([facility]) [I63.9] DVT of popliteal vein ([facility]) [I82.439] S/P patent foramen ovale closure [Z87.74] 12/23/2022 Hypertension [I10] Pulmonary hypertension ([facility]) [I27.20] 06/28/2016 Primary osteoarthritis of left knee [M17.12] 12/23/2022 Obesity, Class I, BMI 30-34.9 [E66.9] 01/16/2023 Status post total left knee replacement [Z96.65*01/17/2023 KAMI (acute kidney injury) ([facility]) [N17.9] 01/18/2023 01/19/2023 Hyponatremia [E87.1] 01/18/2023 Hyperkalemia [E87.5] 01/18/2023 01/19/2023 S/P total knee replacement, left [Z96.652] 01/18/2023 Hypomagnesemia [E83.42] 01/19/2023 01/19/2023 Disposition: Return in about 3 months (around 07/18/2023). Follow-up and Disposition History for Encounter Date Provider Department Center 04/17/2023 3103-SHAN BOX Encounter Status:Closed by SHAN BOX II on 04/17/[address] [facility] XR KNEE 3V AP/LAT/MERCHANT L Ton [...] IMPRESSION: Left total knee arthroplasty without complication. Entry Level Staff Accountant: MAGDALENE Transcribe Date/Time: Apr 17 2023 9:42A Dictated by : AURY BRANDT MD This examination was interpreted and the report reviewed and electronically signed by: LEE PAGE MD on Apr 17 2023 11:37PM EST [id number] Normal [facility] Alanine aminotransferase [En zymatic activity/volume] in Serum or PlasmaOrdered By: Leonel Aguirre on 04-05-2023 ALT [Catalytic activity/Vol] 23 U/L 7-52 [facility] Albumin [Mass/volume] in Ser um or Plasma by Bromocresol green (BCG) dye binding methoOrdered By: Leonel Aguirre on 04-05-2023 Albumin BCG dye [Mass/Vol] 4.4 g/dL 3.5-5.7 [facility] Alkaline phosphatase [Enzyma tic activity/volume] in Serum or PlasmaOrdered By: Leonel Aguirre on 04-05-2023 ALP [Catalytic activity/Vol] 151 U/L 34-104 [facility] Aspartate aminotransferase [ Enzymatic activity/volume] in Serum or PlasmaOrdered By: Leonel Aguirre on 04-05-2023 AST [Catalytic activity/Vol] 30 U/L 13-39 [facility] Basophils Auto (Bld) [#/Vol] Ordered By: Leonel Aguirre on 04-05-2023 Basophils (Bld) [#/Vol] 0.0 10*3/uL 0.0-0.2 [facility] Basophils/100 WBC Auto (Bld) Ordered By: Leonel Aguirre on 04-05-2023 Basophils/100 WBC (Bld) 0.1 % . F [facility] Bilirubin.direct [Mass/volum e] in Serum or PlasmaOrdered By: Leonel Aguirre on 04-05-2023 Bilirubin.direct [Mass/Vol] 0.10 mg/dL 0.03-0.18 [facility] Bilirubin.total [Mass/volume ] in Serum or PlasmaOrdered By: Leonel Aguirre on 04-05-2023 Bilirubin [Mass/Vol] 0.6 mg/dL 0.3-1.0 [facility] C reactive protein [Mass/vol ume] in Serum or PlasmaOrdered By: Leonel Aguirre on 04-05-2023 CRP [Mass/Vol] < 0.5 mg/dL 0.0-0.5 [facility] C-Reactive Proteinon 023 CRP [Mass/Vol] mg/L Normal 0.0-0.5 [facility] Comment on above: Result Comment: PERF ORMED BY: [place] [address] PATHOLOGIST HEAD FILTER PRESS TENDER KWADWO PULIDO M.D. Performed By: #### C BC, CMP, PAB #### [facility] [address] [place] [address] Complete Blood Count Auto Di ffon 04-05-2023 Basophils (Bld) [#/Vol] 0.0 10*3/uL Normal 0.0-0.2 [facility] Comment on above: Performed By: #### C BC, CMP, PAB #### [facility] [address] [place] [address] [place] Basophils/100 WBC (Bld) 0.1 % Normal . F [facility] Comment on above: Performed By: #### C BC, CMP, PAB #### [place] [address] [place] Eosinophils (Bld) [#/Vol] 0.0 10*3/uL Normal 0.0-0.45 [facility] Comment on above: Performed By: #### C BC, CMP, PAB #### [facility] [address] [place] [address] [place] Eosinophils/100 WBC (Bld) 0.6 % Normal . [facility] Comment on above: Performed By: #### C BC, CMP, PAB #### [facility] [address] Erythrocyte distribution width (RBC) [Ratio] 14.5 % Normal 11.9-15.3 [facility] Comment on above: Performed By: #### C BC, CMP, PAB #### [facility] [address] Hematocrit (Bld) [Volume fraction] 33.2 % Low 34.0-46.4 [facility] Comment on above: Performed By: #### C BC, CMP, PAB #### [facility] [address] Hemoglobin (Bld) [Mass/Vol] 11.1 g/dL Low 11.8-15.4 [facility] Comment on above: Performed By: #### C BC, CMP, PAB #### [facility] [address] [place] [address] [place] Lymphocytes (Bld) [#/Vol] 1.3 10*3/uL Normal 1.00-4.8 [facility] Comment on above: Performed By: #### C BC, CMP, PAB #### [facility] [address] [place] [address] [place] Lymphocytes/100 WBC (Bld) 16.1 % Normal . [facility] Comment on above: Performed By: #### C BC, CMP, PAB #### [facility] [address] [place] [address] [place] MCH (RBC) [Entitic mass] 32.7 pg Normal 24.7-34.3 [facility] Comment on above: Performed By: #### C BC, CMP, PAB #### [facility] [address] [place] [address] [place] MCV (RBC) [Entitic vol] 98.3 fL Normal 80-100 F [facility] Comment on above: Performed By: #### C BC, CMP, PAB #### [facility] [address] Mean Corpuscular HGB Conc 33.3 g/dL Normal 32.0-35.0 [facility] Comment on above: Performed By: #### C BC, CMP, PAB #### [facility] [address] [place] [address] [place] Monocytes (Bld) [#/Vol] 0.4 10*3/uL Normal 0.0-0.8 [facility] Comment on above: Performed By: #### C BC, CMP, PAB #### [facility] [address] Monocytes/100 WBC (Bld) 5.1 % Normal . F [facility] Comment on above: Performed By: #### C BC, CMP, PAB #### [facility] [address] [place] [address] [place] Neutrophils (Bld) [#/Vol] 6.5 10*3/uL Normal 1.8-7.7 [facility] Comment on above: Performed By: #### C BC, CMP, PAB #### [facility] [address] [place] [address] [place] Neutrophils/100 WBC (Bld) 78.1 % Normal . [facility] Comment on above: Performed By: #### C BC, CMP, PAB #### [facility] [address] [place] [address] [place] NRBC% 0.1 /100{WBC} Normal 0-0.5 [facility] Comment on above: Performed By: #### C BC, CMP, PAB #### [facility] [address] [place] [address] [place] Platelet mean volume (Bld) [Entitic vol] 8.2 fL Normal 6.3-10.7 [facility] Comment on above: Performed By: #### C BC, CMP, PAB #### [facility] [address] [place] [address] [place] Platelets (Bld) [#/Vol] 194 10*3/uL Normal 150-450 [facility] Comment on above: Performed By: #### C ERROL CMP, PAB #### [facility] [address] RBC (Bld) [#/Vol] 3.38 10*6/uL Low 3.60-5.00 [facility] Comment on above: Performed By: #### C ERROL CMP, PAB #### [address] WBC (Bld) [#/Vol] 8.3 10*3/uL Normal 3.8-11.6 [facility] Comment on above: Performed By: #### C MEGGAN NORTON, PAB #### [address] Creatinineon 04-05-2023 Creatinine [Mass/Vol] 0.99 mg/dL Normal 0.60-1.20 [facility] Comment on above: Performed By: #### C MEGGAN NORTON, PAB #### [address] GFR/1.73 sq M.predicted MDRD (S/P/Bld) [Vol rate/Area] 58.728 mL/min/{1.73_m2} Normal [facility] Comment on above: Performed By: #### C MEGGAN NORTON, PAB #### [address] Creatinine [Mass/volume] in Serum or PlasmaOrdered By: Leonel Aguirre on 04-05-2023 Creatinine [Mass/Vol] 0.99 mg/dL 0.60-1.20 [facility] Eosinophils Auto (Bld) [#/Vo l]Ordered By: Leonel Aguirre on 04-05-2023 Eosinophils (Bld) [#/Vol] 0.0 10*3/uL 0.0-0.45 [facility] Eosinophils/100 WBC Auto (Bl d)Ordered By: Leonel Aguirre on 04-05-2023 Eosinophils/100 WBC (Bld) 0.6 % . [facility] Erythrocyte Sedimentation Ra eddi 04-05-2023 ESR (Bld) [Velocity] 10 mm/h Normal 0-29 [facility] Comment on above: Result Comment: PERF ORMED BY: [place] [address] PATHOLOGIST HEAD FILTER PRESS TENDER KWADWO PULIDO M.D. Performed By: #### C BC, CMP, PAB #### [facility] [address] Erythrocyte distribution wid th Auto (RBC) [Ratio]Ordered By: Leonel Aguirre on 04-05-2023 Erythrocyte distribution width (RBC) [Ratio] 14.5 % 11.9-15.3 [facility] Erythrocyte sedimentation ra te by Photometric methodOrdered By: Leonel Aguirre on 04-05-2023 ESR Photometric method (Bld) [Velocity] 10 mm/hr 0-29 [facility] Globulin Calc (S) [Mass/Vol] Ordered By: Leonel Aguirre on 04-05-2023 Globulin (S) [Mass/Vol] 2.2 g/dL F [facility] Hematocrit Auto (Bld) [Volum e fraction]Ordered By: Leonel Aguirre on 04-05-2023 Hematocrit (Bld) [Volume fraction] 33.2 % 34.0-46.4 [facility] Hemoglobin [Mass/volume] in BloodOrdered By: Leonel Aguirre on 04-05-2023 Hemoglobin (Bld) [Mass/Vol] 11.1 g/dL 11.8-15.4 [facility] Hepatic Panelon 04-05-2023 Albumin [Mass/Vol] 4.4 g/dL Normal 3.5-5.7 [facility] Comment on above: Performed By: #### C BC, CMP, PAB #### [facility] [address] Albumin/Globulin [Mass ratio] 2.0 {ratio} Normal [facility] Comment on above: Performed By: #### C BC, CMP, PAB #### [facility] [address] [place] [id number] [facility] ALP [Catalytic activity/Vol] 151 U/L High 34-104 [facility] Comment on above: Performed By: #### C BC, CMP, PAB #### [facility] [address] [place] [id number] [place] ALT [Catalytic activity/Vol] 23 U/L Normal 7-52 [facility] Comment on above: Performed By: #### C BC, CMP, PAB #### [facility] [address] [place] [address] [place] AST [Catalytic activity/Vol] 30 U/L Normal 13-39 [facility] Comment on above: Performed By: #### C BC, CMP, PAB #### [facility] [address] Bilirubin [Mass/Vol] 0.6 mg/dL Normal 0.3-1.0 [facility] Comment on above: Performed By: #### C BC, CMP, PAB #### [facility] [address] Bilirubin,Indirect 0.5 mg/dL Normal [facility] Comment on above: Performed By: #### C BC, CMP, PAB #### [facility] [address] Bilirubin.indirect [Mass/Vol] 0.10 mg/dL Normal 0.03-0.18 [facility] Comment on above: Performed By: #### C BC, CMP, PAB #### [facility] [address] Globulin (S) [Mass/Vol] 2.2 g/dL Normal F [facility] Comment on above: Performed By: #### C BC, CMP, PAB #### [facility] [address] [place] [address] [place] Protein [Mass/Vol] 6.6 g/dL Normal 6.4-8.9 [facility] Comment on above: Performed By: #### C BC, CMP, PAB #### [facility] [address] [place] [address] [place] Leukocytes [#/volume] correc kevin for nucleated erythrocytes in Blood by Automated counOrdered By: Leonel Aguirre on 04-05-2023 WBC corrected for nucl RBC Auto (Bld) [#/Vol] 8.3 10*3/uL 3.8-11.6 [facility] Lymphocytes Auto (Bld) [#/Vo l]Ordered By: Leonel Aguirre on 04-05-2023 Lymphocytes (Bld) [#/Vol] 1.3 10*3/uL 1.00-4.8 [facility] Lymphocytes/100 WBC Auto (Bl d)Ordered By: Leonel Aguirre on 04-05-2023 Lymphocytes/100 WBC (Bld) 16.1 % . [facility] MCH Auto (RBC) [Entitic mass ]Ordered By: Leonel Aguirre on 04-05-2023 MCH (RBC) [Entitic mass] 32.7 pg 24.7-34.3 [facility] MCHC Auto (RBC) [Mass/Vol]Or dered By: Leonel Aguirre on 04-05-2023 MCHC (RBC) [Mass/Vol] 33.3 g/dL 32.0-35.0 [facility] MCV Auto (RBC) [Entitic vol] Ordered By: Leonel Aguirre on 04-05-2023 MCV (RBC) [Entitic vol] 98.3 fL 80-100 F [facility] Monocytes Auto (Bld) [#/Vol] Ordered By: Leonel Aguirre on 04-05-2023 Monocytes (Bld) [#/Vol] 0.4 10*3/uL 0.0-0.8 [facility] Monocytes/100 WBC Auto (Bld) Ordered By: Leonel Aguirre on 04-05-2023 Monocytes/100 WBC (Bld) 5.1 % . F [facility] Neutrophils Auto (Bld) [#/Vo l]Ordered By: Leonel Aguirre on 04-05-2023 Neutrophils (Bld) [#/Vol] 6.5 10*3/uL 1.8-7.7 [facility] Neutrophils/100 WBC Auto (Bl d)Ordered By: Leonel Aguirre on 04-05-2023 Neutrophils/100 WBC (Bld) 78.1 % . [facility] No Panel InformationOrdered By: Leonel Aguirre on 04-05-2023 Estimated GFR (CKD-EPI) 58.728 mL/Min [facility] Creatinine Clearance (Chem N/A [facility] Nucleated erythrocytes [Pres ence] in Blood by Automated countOrdered By: Leonel Aguirre on 04-05-2023 Nucleated RBC Auto Ql (Bld) 0.1 /100{WBC} 0-0.5 [facility] Platelet mean volume Auto (B ld) [Entitic vol]Ordered By: Leonel Aguirre on 04-05-2023 Platelet mean volume (Bld) [Entitic vol] 8.2 fL 6.3-10.7 [facility] Platelets Auto (Bld) [#/Vol] Ordered By: Leonel Aguirre on 04-05-2023 Platelets (Bld) [#/Vol] 194 10*3/uL 150-450 [facility] Protein [Mass/volume] in Ser um or PlasmaOrdered By: Leonel Aguirre on 04-05-2023 Protein [Mass/Vol] 6.6 g/dL 6.4-8.9 [facility] RBC Auto (Bld) [#/Vol]Ordere d By: Leonel Aguirre on 04-05-2023 RBC (Bld) [#/Vol] 3.38 10*6/uL 3.60-5.00 [facility] Serum or plasma albumin/glob ulin mass ratioOrdered By: Leonel Aguirre on 04-05-2023 Albumin/Globulin [Mass ratio] 2.0 {ratio} [facility] Serum or plasma non-glucuron idated bilirubin measurement (mass/volume)Ordered By: Leonel Aguirre on 04-05-2023 Bilirubin.indirect [Mass/Vol] 0.5 mg/dL [facility] WBC Auto (Bld) [#/Vol]Ordere d By: Leonel Aguirre on 04-05-2023 WBC (Bld) [#/Vol] 8.3 10*3/uL 3.8-11.6 [facility] CNOVon 03-06-2023 CNOV Office Visit (LOORRM ) -- KIKI MOORE ([id number]) 1945 F Date Time Provider Department 03/06/23 [...] [R06.83] Back pain [M54.9] RA (rheumatoid arthritis) ([facility]) [M06.9] Arthritis of left hip [M16.12] 12/23/2014 Spondylolisthesis of lumbar region [M43.16] 12/23/2014 Lumbar stenosis with neurogenic claudication [M*12/23/2014 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 Stroke ([facility]) [I63.9] DVT of popliteal vein ([facility]) [I82.439] S/P patent foramen ovale closure [Z87.74] 12/23/2022 Hypertension [I10] Pulmonary hypertension (HCC) [I27.20] 06/28/2016 Primary osteoarthritis of left knee [M17.12] 12/23/2022 Obesity, Class I, BMI 30-34.9 [E66.9] 01/16/2023 Status post total left knee replacement [Z96.65*01/17/2023 KAMI (acute kidney injury) ([facility]) [N17.9] 01/18/2023 01/19/2023 Hyponatremia [E87.1] 01/18/2023 Hyperkalemia [E87.5] 01/18/2023 01/19/2023 S/P total knee replacement, left [Z96.652] 01/18/2023 Hypomagnesemia [E83.42] 01/19/2023 01/19/2023 Encounter Status:Closed by SHAN BOX II on 03/06/[address] [facility] Basic Metabolic Panelon 09-2 Anion gap [Moles/Vol] 10.6 mmol/L Normal 6.0-15.0 [facility] Comment on above: Performed By: #### B MP ####[place] [id number] [place] [address] [facility] Calcium [Mass/Vol] 8.6 mg/dL Normal 8.6-10.3 [facility] Comment on above: Performed By: #### B MP ####[address] [place] [address] [facility] Chloride [Moles/Vol] 100 mmol/L Normal 98-107 [facility] Comment on above: Performed By: #### B MP ####[address] [place] [address] [facility] CO2 [Moles/Vol] 25.0 mmol/L Normal 21.0-31.0 [facility] Comment on above: Performed By: #### B MP ####[address] [place] [address] [facility] Creatinine [Mass/Vol] 0.99 mg/dL Normal 0.60-1.20 [facility] Comment on above: Performed By: #### B MP ####[address] [address] [place] [address] [place] Creatinine Clr Calc Pharmacy 45.35 [facility] Comment on above: Result Comment: PERF ORMED BY: [facility] [address] [phone] PATHOLOGIST HEAD FILTER PRESS TENDER KWADWO PULIDO M.D. Performed By: #### B MP ####[place] [id number] [place] [id number] [facility] GFR/1.73 sq M.predicted MDRD (S/P/Bld) [Vol rate/Area] 58.728 mL/min/{1.73_m2} Normal [facility] Comment on above: Performed By: #### B MP ####[place] [id number] [facility] Glucose [Mass/Vol] 135 mg/dL High 70-100 [facility] Comment on above: Result Comment: [facility] Glucose Reference Range is dependent on time and content of last meal. Glucose of more than 200 mg/dL in a nonstressed, ambulatory subject supports the diagnosis of Diabetes Mellitus. ADA recommended reference range Performed By: #### B MP ####[place] [id number] [facility] Potassium [Moles/Vol] 4.6 mmol/L Normal 3.5-5.1 [facility] Comment on above: Performed By: #### B MP ####[address] [address] [facility] Sodium [Moles/Vol] 131 mmol/L Low 136-145 [facility] Comment on above: Performed By: #### B MP ####[place] [id number] [facility] Urea nitrogen [Mass/Vol] 21 mg/dL Normal 7-25 [facility] Comment on above: Performed By: #### B MP ####[place] [id number] [facility] CNOV 02-10-2023 CNOV Office Visit (LOORRM ) -- KIKI MOORE ([id number]) 1945 F Date Time Provider Department 02/10/23 [...] Back Pain Ra (Rheumatoid Arthritis) ([facility]) Arthritis of Left Hip Spondylolisthesis of Lumbar Region 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 Stroke ([facility]) Dvt of Popliteal Vein ([facility]) S/P Patent Foramen Ovale Closure Hypertension Pulmonary Hypertension ([facility]) Primary Osteoarthritis of Left Knee Obesity, Class [...] tenderness Ne (more content not included)... Normal [facility] Calcium [Mass/volume] in Ser um or PlasmaOrdered By: Syd Muir on 02-10-2023 Calcium [Mass/Vol] 8.6 mg/dL 8.6-10.3 [facility] Carbon dioxide, total [Moles /volume] in Serum or PlasmaOrdered By: Syd Muir on 02-10-2023 CO2 [Moles/Vol] 25.0 mmol/L 21.0-31.0 [facility] Chloride [Moles/volume] in S shanti or PlasmaOrdered By: Syd Muir on 02-10-2023 Chloride [Moles/Vol] 100 mmol/L 98-107 [facility] Creatinine [Mass/volume] in Serum or PlasmaOrdered By: Syd Muir on 02-10-2023 Creatinine [Mass/Vol] 0.99 mg/dL 0.60-1.20 [facility] Glucose [Mass/volume] in Ser um or PlasmaOrdered By: Syd Muir on 09-22-2023 Glucose [Mass/Vol] 135 mg/dL 70-100 [facility] Comment on above: ADA recommended refe rence rangeRandom Glucose Reference Range is dependent on time and content of last meal. Glucose of more than 200 mg/dL in a nonstressed, ambulatory subject supports the diagnosis of Diabetes Mellitus. No Panel InformationOrdered By: Syd Muir on 02-10-2023 Estimated GFR (CKD-EPI) 58.728 mL/Min [facility] Creatinine Clearance (Chem 45.35 [facility] Potassium [Moles/volume] in Serum or PlasmaOrdered By: Syd Muir on 02-10-2023 Potassium [Moles/Vol] 4.6 mmol/L 3.5-5.1 [facility] Serum or plasma anion gap de terminationOrdered By: Syd Muir on 02-10-2023 Anion gap [Moles/Vol] 10.6 mmol/L 6.0-15.0 [facility] Sodium [Moles/volume] in Ser um or PlasmaOrdered By: Syd Muir on 02-10-2023 Sodium [Moles/Vol] 131 mmol/L 136-145 [facility] Urea nitrogen [Mass/volume] in Serum or PlasmaOrdered By: Syd Muir on 02-10-2023 Urea nitrogen [Mass/Vol] 21 mg/dL 7-25 [facility] XR KNEE 3V AP/LAT/MERCHANT L Ton 02-10-2023 [...] soft tissue gas. IMPRESSION: Arthroplasty without complication Entry Level Staff Accountant: MAGDALENE Transcribe Date/Time: Feb 10 2023 11:26A Dictated by : LEE PAGE MD This examination was interpreted and the report reviewed and electronically signed by: LEE PAGE MD on Feb 10 2023 11:30AM EST [id number] Normal [facility] US venous duplex LE LTon US venous duplex LE LT [facility] [place] [address] Ultrasound Report Signed Patient: Kiki Moore MR#: [id number] 01 : 1945 Acct:[id number] Age/Sex: 78 / F ADM Date: 01/31/23 Loc: Room: 3X4474-0 Type: ADM IN Attending Dr: Syd Muir [...] MD 02/09/23 1503 Signed By: 02/09/23 1503 [facility] Basophils Auto (Bld) [#/Vol] Ordered By: Sofya Petit on 02-07-2023 Basophils (Bld) [#/Vol] 0.0 10*3/uL 0.0-0.2 [facility] Basophils/100 WBC Auto (Bld) Ordered By: Sofya Petit on 02-07-2023 Basophils/100 WBC (Bld) 0.4 % . F [facility] Complete Blood Count Auto Di ffon 02-07-2023 Basophils (Bld) [#/Vol] 0.0 10*3/uL Normal 0.0-0.2 [facility] Comment on above: Result Comment: PERF ORMED BY: [facility] [address] [place] [address] PATHOLOGIST HEAD FILTER PRESS TENDER KWADWO PULIDO M.D. Performed By: #### C BC ####[address] Basophils/100 WBC (Bld) 0.4 % Normal . F [facility] Comment on above: Performed By: #### C BC ####[address] Eosinophils (Bld) [#/Vol] 0.1 10*3/uL Normal 0.0-0.45 [facility] Comment on above: Performed By: #### C BC ####[address] Eosinophils/100 WBC (Bld) 0.8 % Normal . [facility] Comment on above: Performed By: #### C BC ####[address] Erythrocyte distribution width (RBC) [Ratio] 16.0 % High 11.9-15.3 [facility] Comment on above: Performed By: #### C BC ####[address] Hematocrit (Bld) [Volume fraction] 27.0 % Low 34.0-46.4 [facility] Comment on above: Performed By: #### C BC ####[address] Hemoglobin (Bld) [Mass/Vol] 9.1 g/dL Low 11.8-15.4 [facility] Comment on above: Performed By: #### C BC ####[address] Lymphocytes (Bld) [#/Vol] 1.4 10*3/uL Normal 1.00-4.8 [facility] Comment on above: Performed By: #### C BC ####[address] Lymphocytes/100 WBC (Bld) 17.4 % Normal . [facility] Comment on above: Performed By: #### C BC ####[address] MCH (RBC) [Entitic mass] 33.4 pg Normal 24.7-34.3 [facility] Comment on above: Performed By: #### C BC ####[address] MCV (RBC) [Entitic vol] 99.2 fL Normal 80-100 F [facility] Comment on above: Performed By: #### C BC ####[address] Mean Corpuscular HGB Conc 33.7 g/dL Normal 32.0-35.0 [facility] Comment on above: Performed By: #### C BC ####[address] Monocytes (Bld) [#/Vol] 1.2 10*3/uL High 0.0-0.8 [facility] Comment on above: Performed By: #### C BC ####[address] Monocytes/100 WBC (Bld) 15.5 % Normal . F [facility] Comment on above: Performed By: #### C BC ####[address] Neutrophils (Bld) [#/Vol] 5.2 10*3/uL Normal 1.8-7.7 [facility] Comment on above: Performed By: #### C BC ####[place] [id number] [facility] Neutrophils/100 WBC (Bld) 65.9 % Normal . [facility] Comment on above: Performed By: #### C BC ####[place] [id number] [facility] NRBC% 0.1 /100{WBC} Normal 0-0.5 [facility] Comment on above: Performed By: #### C BC ####[place] [id number] [facility] Platelet mean volume (Bld) [Entitic vol] 7.0 fL Normal 6.3-10.7 [facility] Comment on above: Performed By: #### C BC ####[place] [id number] [facility] Platelets (Bld) [#/Vol] 213 10*3/uL Normal 150-450 [facility] Comment on above: Performed By: #### C BC ####[place] [id number] [facility] RBC (Bld) [#/Vol] 2.72 10*6/uL Low 3.60-5.00 [facility] Comment on above: Performed By: #### C BC ####[place] [id number] [facility] WBC (Bld) [#/Vol] 8.0 10*3/uL Normal 3.8-11.6 [facility] Comment on above: Performed By: #### C BC ####[place] [id number] [facility] Eosinophils Auto (Bld) [#/Vo l]Ordered By: Sofya Petit on 02-07-2023 Eosinophils (Bld) [#/Vol] 0.1 10*3/uL 0.0-0.45 [facility] Eosinophils/100 WBC Auto (Bl d)Ordered By: Sofya Petit on 02-07-2023 Eosinophils/100 WBC (Bld) 0.8 % . [facility] Erythrocyte distribution wid th Auto (RBC) [Ratio]Ordered By: Sofya Petit on 02-07-2023 Erythrocyte distribution width (RBC) [Ratio] 16.0 % 11.9-15.3 [facility] Hematocrit Auto (Bld) [Volum e fraction]Ordered By: Sofya Petit on 02-07-2023 Hematocrit (Bld) [Volume fraction] 27.0 % 34.0-46.4 [facility] Hemoglobin [Mass/volume] in BloodOrdered By: Sofya Petit on 02-07-2023 Hemoglobin (Bld) [Mass/Vol] 9.1 g/dL 11.8-15.4 [facility] Leukocytes [#/volume] correc kevin for nucleated erythrocytes in Blood by Automated counOrdered By: Sofya Petit on 02-07-2023 WBC corrected for nucl RBC Auto (Bld) [#/Vol] 8.0 10*3/uL 3.8-11.6 [facility] Lymphocytes Auto (Bld) [#/Vo l]Ordered By: Sofya Petit on 02-07-2023 Lymphocytes (Bld) [#/Vol] 1.4 10*3/uL 1.00-4.8 [facility] Lymphocytes/100 WBC Auto (Bl d)Ordered By: Sofya Petit on 02-07-2023 Lymphocytes/100 WBC (Bld) 17.4 % . [facility] MCH Auto (RBC) [Entitic mass ]Ordered By: Sofya Petit on 02-07-2023 MCH (RBC) [Entitic mass] 33.4 pg 24.7-34.3 [facility] MCHC Auto (RBC) [Mass/Vol]Or dered By: Sofya Petit on 02-07-2023 MCHC (RBC) [Mass/Vol] 33.7 g/dL 32.0-35.0 [facility] MCV Auto (RBC) [Entitic vol] Ordered By: Sofya Petit on 02-07-2023 MCV (RBC) [Entitic vol] 99.2 fL 80-100 F [facility] Monocytes Auto (Bld) [#/Vol] Ordered By: Sofya Petit on 02-07-2023 Monocytes (Bld) [#/Vol] 1.2 10*3/uL 0.0-0.8 [facility] Monocytes/100 WBC Auto (Bld) Ordered By: Sofya Petit on 02-07-2023 Monocytes/100 WBC (Bld) 15.5 % . F [facility] Neutrophils Auto (Bld) [#/Vo l]Ordered By: Sofya Petit on 02-07-2023 Neutrophils (Bld) [#/Vol] 5.2 10*3/uL 1.8-7.7 [facility] Neutrophils/100 WBC Auto (Bl d)Ordered By: Sofya Petit on 02-07-2023 Neutrophils/100 WBC (Bld) 65.9 % . [facility] Nucleated erythrocytes [Pres ence] in Blood by Automated countOrdered By: Sofya Petit on 02-07-2023 Nucleated RBC Auto Ql (Bld) 0.1 /100{WBC} 0-0.5 [facility] Platelet mean volume Auto (B ld) [Entitic vol]Ordered By: Sofya Peitt on 02-07-2023 Platelet mean volume (Bld) [Entitic vol] 7.0 fL 6.3-10.7 [facility] Platelets Auto (Bld) [#/Vol] Ordered By: Sofya Petit on 02-07-2023 Platelets (Bld) [#/Vol] 213 10*3/uL 150-450 [facility] RBC Auto (Bld) [#/Vol]Ordere d By: Sofya Petti on 02-07-2023 RBC (Bld) [#/Vol] 2.72 10*6/uL 3.60-5.00 [facility] WBC Auto (Bld) [#/Vol]Ordere d By: Sofya Petit on 02-07-2023 WBC (Bld) [#/Vol] 8.0 10*3/uL 3.8-11.6 [facility] Fecal occult blood detection by immunochemistryOrdered By: Ivy Gannon on 02-06-2023 Hemoglobin.gastrointest inal Ql (Stl) [facility] Fecal occult blood detection by immunochemistryOrdered By: Ivy Thomas on 02-06-2023 Hemoglobin.gastrointest inal Ql (Stl) [facility] Stool Occult Blood (Guaiac)o n 02-06-2023 Stool Occult Blood (Guaiac) Occult Blood Negative for Occult Blood by Guaiac Methodology -- Reference range = Negative PERFORMED BY: [address] [place] [address] PATHOLOGIST HEAD FILTER PRESS TENDER KWADWO PULIDO M.D. Normal [facility] Comment on above: Performed By: #### O B(GUAIAC) ####[address] Complete Blood Count Auto Di ffon 02-04-2023 Basophils (Bld) [#/Vol] 0.0 10*3/uL Normal 0.0-0.2 [facility] Comment on above: Result Comment: PERF ORMED BY: [place] [address] [place] [address] PATHOLOGIST HEAD FILTER PRESS TENDER KWADWO PULIDO M.D. Performed By: #### C BC ####[address] Basophils/100 WBC (Bld) 0.5 % Normal . F [facility] Comment on above: Performed By: #### C BC ####[place] [id number] [facility] Eosinophils (Bld) [#/Vol] 0.2 10*3/uL Normal 0.0-0.45 [facility] Comment on above: Performed By: #### C BC ####[place] [id number] [facility] Eosinophils/100 WBC (Bld) 2.9 % Normal . [facility] Comment on above: Performed By: #### C BC ####[address] [address] [facility] Erythrocyte distribution width (RBC) [Ratio] 14.7 % Normal 11.9-15.3 [facility] Comment on above: Performed By: #### C BC ####[address] [address] [facility] Hematocrit (Bld) [Volume fraction] 25.4 % Low 34.0-46.4 [facility] Comment on above: Performed By: #### C BC ####[address] [address] [facility] Hemoglobin (Bld) [Mass/Vol] 8.7 g/dL Low 11.8-15.4 [facility] Comment on above: Performed By: #### C BC ####[place] [id number] [facility] Lymphocytes (Bld) [#/Vol] 1.1 10*3/uL Normal 1.00-4.8 [facility] Comment on above: Performed By: #### C BC ####[place] [id number] [facility] Lymphocytes/100 WBC (Bld) 17.4 % Normal . [facility] Comment on above: Performed By: #### C BC ####[address] [address] [facility] MCH (RBC) [Entitic mass] 33.5 pg Normal 24.7-34.3 [facility] Comment on above: Performed By: #### C BC ####[address] [address] [facility] MCV (RBC) [Entitic vol] 98.3 fL Normal 80-100 F [facility] Comment on above: Performed By: #### C BC ####[place] [id number] [facility] Mean Corpuscular HGB Conc 34.0 g/dL Normal 32.0-35.0 [facility] Comment on above: Performed By: #### C BC ####[place] [id number] [place] [address] [facility] Monocytes (Bld) [#/Vol] 0.9 10*3/uL High 0.0-0.8 [facility] Comment on above: Performed By: #### C BC ####[address] [address] [facility] Monocytes/100 WBC (Bld) 14.2 % Normal . [facility] Comment on above: Performed By: #### C BC ####[address] [address] [facility] Neutrophils (Bld) [#/Vol] 4.1 10*3/uL Normal 1.8-7.7 [facility] Comment on above: Performed By: #### C BC ####[address] [address] [facility] Neutrophils/100 WBC (Bld) 65.0 % Normal . [facility] Comment on above: Performed By: #### C BC ####[address] [address] [facility] NRBC% 0.1 /100{WBC} Normal 0-0.5 [facility] Comment on above: Performed By: #### C BC ####[address] [address] [facility] Platelet mean volume (Bld) [Entitic vol] 6.6 fL Normal 6.3-10.7 [facility] Comment on above: Performed By: #### C BC ####[address] [address] [facility] Platelets (Bld) [#/Vol] 235 10*3/uL Normal 150-450 [facility] Comment on above: Performed By: #### C BC ####[address] [address] [facility] RBC (Bld) [#/Vol] 2.58 10*6/uL Low 3.60-5.00 [facility] Comment on above: Performed By: #### C BC ####[place] [id number] WBC (Bld) [#/Vol] 6.3 10*3/uL Normal 3.8-11.6 [facility] Comment on above: Performed By: #### C BC ####[facility] [address] Complete Blood Count Auto Di ffon 02-03-2023 Basophils (Bld) [#/Vol] 0.0 10*3/uL Normal 0.0-0.2 [facility] Comment on above: Result Comment: PERF ORMED BY: [place] [address] PATHOLOGIST HEAD FILTER PRESS TENDER KWADWO PULIDO M.D. Performed By: #### C BC, CMP, PAB #### [address] Basophils/100 WBC (Bld) 0.5 % Normal . [facility] Comment on above: Performed By: #### C BC, CMP, PAB #### [facility] [address] Eosinophils (Bld) [#/Vol] 0.2 10*3/uL Normal 0.0-0.45 [facility] Comment on above: Performed By: #### C BC, CMP, PAB #### [facility] [address] Eosinophils/100 WBC (Bld) 3.4 % Normal . [facility] Comment on above: Performed By: #### C BC, CMP, PAB #### [facility] [address] Erythrocyte distribution width (RBC) [Ratio] 15.0 % Normal 11.9-15.3 [facility] Comment on above: Performed By: #### C BC, CMP, PAB #### [facility] [address] Hematocrit (Bld) [Volume fraction] 26.9 % Low 34.0-46.4 [facility] Comment on above: Performed By: #### C BC, CMP, PAB #### [facility] [address] [place] [address] [place] Hemoglobin (Bld) [Mass/Vol] 9.4 g/dL Low 11.8-15.4 [facility] Comment on above: Performed By: #### C BC, CMP, PAB #### [facility] [address] Lymphocytes (Bld) [#/Vol] 1.2 10*3/uL Normal 1.00-4.8 [facility] Comment on above: Performed By: #### C BC, CMP, PAB #### [facility] [address] Lymphocytes/100 WBC (Bld) 18.6 % Normal . [facility] Comment on above: Performed By: #### C BC, CMP, PAB #### [facility] [address] MCH (RBC) [Entitic mass] 34.3 pg Normal 24.7-34.3 [facility] Comment on above: Performed By: #### C BC, CMP, PAB #### [place] [address] [place] MCV (RBC) [Entitic vol] 98.5 fL Normal 80-100 F [facility] Comment on above: Performed By: #### C BC, CMP, PAB #### [address] Mean Corpuscular HGB Conc 34.9 g/dL Normal 32.0-35.0 [facility] Comment on above: Performed By: #### C BC, CMP, PAB #### [facility] [address] [place] [address] [place] Monocytes (Bld) [#/Vol] 0.8 10*3/uL Normal 0.0-0.8 [facility] Comment on above: Performed By: #### C BC, CMP, PAB #### [facility] [address] [place] [address] [place] Monocytes/100 WBC (Bld) 12.3 % Normal . [facility] Comment on above: Performed By: #### C BC, CMP, PAB #### [facility] [address] [place] [address] [place] Neutrophils (Bld) [#/Vol] 4.4 10*3/uL Normal 1.8-7.7 [facility] Comment on above: Performed By: #### C BC, CMP, PAB #### [facility] [address] [place] [address] [place] Neutrophils/100 WBC (Bld) 65.2 % Normal . [facility] Comment on above: Performed By: #### C BC, CMP, PAB #### [facility] [address] NRBC% 0.1 /100{WBC} Normal 0-0.5 [facility] Comment on above: Performed By: #### C BC, CMP, PAB #### [facility] [address] Platelet mean volume (Bld) [Entitic vol] 6.8 fL Normal 6.3-10.7 [facility] Comment on above: Performed By: #### C BC, CMP, PAB #### [facility] [address] [place] [address] [place] Platelets (Bld) [#/Vol] 259 10*3/uL Normal 150-450 [facility] Comment on above: Performed By: #### C BC, CMP, PAB #### [facility] [address] [place] [address] [place] RBC (Bld) [#/Vol] 2.73 10*6/uL Low 3.60-5.00 [facility] Comment on above: Performed By: #### C BC, CMP, PAB #### [facility] [address] [place] [address] [place] WBC (Bld) [#/Vol] 6.7 10*3/uL Normal 3.8-11.6 [facility] Comment on above: Performed By: #### C BC, CMP, PAB #### [facility] [address] [place] [address] [place] Absolute reticulocyte countO rdered By: Will Brown on 02-02-2023 Reticulocytes (Bld) [#/Vol] 0.063 10*6/uL 0.024-0.08 4 [facility] [place] Roberdel BB Sendou ton 02-02-2023 [place] Roberdel BB Sendout Sent to [facility] Comment on above: Order Comment: Patho logist Dr. Rosado and patients attending Dr. Muir decided not to other STAT, patients HGB 6.6 but stable. Please work up first thing in the morning 02/02/23. Result Comment: Sent to [facility] for further testing. Final report to follow. PERFORMED BY: [place] [address] PATHOLOGIST HEAD FILTER PRESS TENDER KWADWO PULIDO M.D. Antibody Identificationon Antibody Identification HTLA Normal F [facility] Comment on above: Result Comment: Test ing performed and reported by [facility] Basic Metabolic Panelon 01-20 Anion gap [Moles/Vol] 8.8 mmol/L Normal 6.0-15.0 [facility] Comment on above: Performed By: #### H APT, RETIC #### [facility] [address] [place] [address] [place] Calcium [Mass/Vol] 8.6 mg/dL Normal 8.6-10.3 [facility] Comment on above: Performed By: #### H APT, RETIC #### [facility] [address] [place] [id number] [place] Chloride [Moles/Vol] 100 mmol/L Normal 98-107 [facility] Comment on above: Performed By: #### H APT, RETIC #### [facility] [address] [place] [id number] [place] CO2 [Moles/Vol] 25.1 mmol/L Normal 21.0-31.0 [facility] Comment on above: Performed By: #### H APT, RETIC #### [facility] [address] [place] [id number] [place] Creatinine [Mass/Vol] 1.14 mg/dL Normal 0.60-1.20 [facility] Comment on above: Performed By: #### H APT, RETIC #### [facility] [address] [place] [address] [place] Creatinine Clr Calc Pharmacy 39.82 [facility] Comment on above: Performed By: #### H APT, RETIC #### [facility] [address] [place] [address] [place] GFR/1.73 sq M.predicted MDRD (S/P/Bld) [Vol rate/Area] 49.582 mL/min/{1.73_m2} [facility] Comment on above: Performed By: #### H APT, RETIC #### [place] [address] [place] Glucose [Mass/Vol] 92 mg/dL Normal 70-100 [facility] Comment on above: Result Comment: [facility] Glucose Reference Range is dependent on time and content of last meal. Glucose of more than 200 mg/dL in a nonstressed, ambulatory subject supports the diagnosis of Diabetes Mellitus. ADA recommended reference range Performed By: #### H APT, RETIC #### [place] [address] [place] Potassium [Moles/Vol] 3.9 mmol/L Normal 3.5-5.1 [facility] Comment on above: Performed By: #### H APT, RETIC #### [place] [address] [place] Sodium [Moles/Vol] 130 mmol/L Low 136-145 [facility] Comment on above: Performed By: #### H APT, RETIC #### [place] [address] [place] Urea nitrogen [Mass/Vol] 16 mg/dL Normal 7-25 [facility] Comment on above: Performed By: #### H APT, RETIC #### [address] Blood Bank Pathologist Lulu gallagher 02-02-2023 Blood Bank Pathologist Review Sent to Pathology [facility] Comment on above: Result Comment: PERF ORMED BY: [place] [phone] PATHOLOGIST HEAD FILTER PRESS TENDER KWADWO PULIDO M.D. Complete Blood Count Auto Di ffon 02-02-2023 Basophils (Bld) [#/Vol] 0.0 10*3/uL Normal 0.0-0.2 [facility] Comment on above: Result Comment: PERF ORMED BY: [facility] [address] [place] [id number] PATHOLOGIST HEAD FILTER PRESS TENDER KWADWO PULIDO M.D. Performed By: #### C BC ####[address] [address] [facility] Basophils/100 WBC (Bld) 0.3 % Normal . [facility] Comment on above: Performed By: #### C BC ####[address] [address] [facility] Eosinophils (Bld) [#/Vol] 0.1 10*3/uL Normal 0.0-0.45 [facility] Comment on above: Performed By: #### C BC ####[address] [address] [facility] Eosinophils/100 WBC (Bld) 1.2 % Normal . [facility] Comment on above: Performed By: #### C BC ####[address] [address] [facility] Erythrocyte distribution width (RBC) [Ratio] 14.8 % Normal 11.9-15.3 [facility] Comment on above: Performed By: #### C BC ####[address] [address] [facility] Hematocrit (Bld) [Volume fraction] 18.9 % Off scale low 34.0-46.4 [facility] Comment on above: Result Comment: Crit ical value result called at 0657 on 02/02/23 Performed By: #### C BC ####[address] [address] [facility] Hemoglobin (Bld) [Mass/Vol] 6.6 g/dL Low 11.8-15.4 [facility] Comment on above: Performed By: #### C BC ####[place] [id number] [facility] Lymphocytes (Bld) [#/Vol] 0.8 10*3/uL Low 1.00-4.8 [facility] Comment on above: Performed By: #### C BC ####[place] [id number] [facility] Lymphocytes/100 WBC (Bld) 13.6 % Normal . [facility] Comment on above: Performed By: #### C BC ####[place] [id number] [facility] MCH (RBC) [Entitic mass] 34.9 pg High 24.7-34.3 [facility] Comment on above: Performed By: #### C BC ####[place] [id number] [facility] MCV (RBC) [Entitic vol] 100.5 fL High 80-100 F [facility] Comment on above: Performed By: #### C BC ####[place] [id number] [facility] Mean Corpuscular HGB Conc 34.8 g/dL Normal 32.0-35.0 [facility] Comment on above: Performed By: #### C BC ####[place] [id number] [facility] Monocytes (Bld) [#/Vol] 0.6 10*3/uL Normal 0.0-0.8 [facility] Comment on above: Performed By: #### C BC ####[place] [phone] [facility] Monocytes/100 WBC (Bld) 10.9 % Normal . [facility] Comment on above: Performed By: #### C BC ####[place] [id number] [facility] Neutrophils (Bld) [#/Vol] 4.3 10*3/uL Normal 1.8-7.7 [facility] Comment on above: Performed By: #### C BC ####[address] [place] [address] [facility] Neutrophils/100 WBC (Bld) 74.0 % Normal . [facility] Comment on above: Performed By: #### C BC ####[place] [phone] [facility] NRBC% 0.2 /100{WBC} Normal 0-0.5 [facility] Comment on above: Performed By: #### C BC ####[address] Platelet mean volume (Bld) [Entitic vol] 6.6 fL Normal 6.3-10.7 [facility] Comment on above: Performed By: #### C BC ####[address] Platelets (Bld) [#/Vol] 267 10*3/uL Normal 150-450 [facility] Comment on above: Performed By: #### C BC ####[address] RBC (Bld) [#/Vol] 1.89 10*6/uL Low 3.60-5.00 [facility] Comment on above: Performed By: #### C BC ####[address] WBC (Bld) [#/Vol] 5.8 10*3/uL Normal 3.8-11.6 [facility] Comment on above: Performed By: #### C BC ####[place] [id number] [facility] Cortisolon 02-02-2023 Cortisol 14.8 ug/dL Normal [facility] Comment on above: Result Comment: Refe rence range: AM 6 - 24 ug/dl PM <10 ug/dl PERFORMED BY: [place] [address] PATHOLOGIST HEAD FILTER PRESS TENDER KWADWO PULIDO M.D. Performed By: #### H APT, RETIC #### [address] Performed By: #### L DH, DAGO, OSMO, FE and TIBC, HARVINDER, BMP ####[facility] [id number] [place] [address] [place] Ferritinon 02-02-2023 Ferritin [Mass/Vol] 102.9 ng/mL Normal 11.0-306.8 [facility] Comment on above: Performed By: #### H APT, RETIC #### [facility] [address] Ferritin [Mass/volume] in Se rum or PlasmaOrdered By: Ivy Thomas on 02-02-2023 Ferritin [Mass/Vol] 102.9 ng/mL 11.0-306.8 [facility] Haptoglobinon 02-02-2023 Haptoglobin 156 mg/dL Normal 44-215 [facility] Comment on above: Result Comment: PERF ORMED BY: [facility] [address] [place] [address] PATHOLOGIST HEAD FILTER PRESS TENDER KWADWO PULIDO M.D. Performed By: #### H APT, RETIC #### [facility] [address] Haptoglobin [Mass/volume] in Serum or PlasmaOrdered By: Will Brown on 02-02-2023 Haptoglobin [Mass/Vol] 156 mg/dL 44-215 [facility] Iron [Mass/volume] in Serum or PlasmaOrdered By: Ivy Thomas on 02-02-2023 Iron [Mass/Vol] 36 ug/dL 50-212 [facility] Iron and TIBC Profileon 01-20 % Iron Saturation 12.8 % Low 20-50 [facility] Comment on above: Performed By: #### H APT, RETIC #### [facility] [address] Iron [Mass/Vol] 36 ug/dL Low 50-212 [facility] Comment on above: Performed By: #### H APT, RETIC #### [facility] [address] Total Iron Binding Capacity 281 ug/dL Normal 255-450 [facility] Comment on above: Performed By: #### H APT, RETIC #### [facility] [address] Transferrin [Mass/Vol] 201 mg/dL Low 203-362 [facility] Comment on above: Performed By: #### H APT, RETIC #### [facility] [address] Iron binding capacity [Mass/ volume] in Serum or PlasmaOrdered By: Ivy Thomas on 02-02-2023 Iron binding capacity [Mass/Vol] 281 ug/dL 255-450 [facility] Iron saturation [Mass Fracti on] in Serum or PlasmaOrdered By: Ivy Thomas on 02-02-2023 Iron saturation [Mass fraction] 12.8 % 20-50 [facility] LDH Lactate Dehydrogenaseon 02-02-2023 LDH Lactate Dehydrogenase 282 U/L High 140-271 [facility] Comment on above: Performed By: #### H APT, RETIC #### [address] Lactate dehydrogenase [Enzym atic activity/volume] in Serum or Plasma by Lactate to pyOrdered By: Will Brown on 02-02-2023 LDH Lactate to pyruvate reaction [Catalytic activity/Vol] 282 U/L 140-271 [facility] No Panel InformationOrdered By: Ivy Thomas on 02-02-2023 Urine Osmolality 465 mosm 250-900 [facility] Osmolalityon 02-02-2023 Osmolality 274 mosm Low 278-305 [facility] Comment on above: Result Comment: PERF ORMED BY: [place] [address] PATHOLOGIST HEAD FILTER PRESS TENDER KWADWO PULIDO M.D. Performed By: #### H APT, RETIC #### [facility] [address] [place] [address] Osmolality measurementOrdere d By: Ivy Thomas on 02-02-2023 Osmolality (Unsp spec) [Osmolality] 274 mosm 278-305 [facility] Osmolality, Urineon 02-03-20 Osmolality, Urine 465 mosm Normal 250-900 [facility] Comment on above: Result Comment: PERF ORMED BY: [facility] [address] [place] [address] PATHOLOGIST HEAD FILTER PRESS TENDER KWADWO PULIDO M.D. Performed By: #### U OSCAR AVALOS ####[facility] [address] Random cortisol measurementO rdered By: Ivy Thomas on 02-02-2023 Cortisol [Mass/Vol] 14.8 ug/dL [facility] Comment on above: Reference range: AM 6 - 24 ug/dl PM <10 ug/dl Reticulocyte Counton 023 Reticulocyte Number 0.063 10*6/uL Normal 0.024-0 .08 4 [facility] Comment on above: Result Comment: PERF ORMED BY: [facility] [address] [place] [address] PATHOLOGIST HEAD FILTER PRESS TENDER KWADWO PULIDO M.D. Performed By: #### H APT, RETIC #### [facility] [address] [place] [address] [place] Reticulocyte Percent 3.3 % High 0.5-1.5 [facility] Comment on above: Performed By: #### H APT, RETIC #### [facility] [address] [place] [address] [place] Reticulocytes/100 RBC Auto ( Bld)Ordered By: Will Brown on 02-02-2023 Reticulocytes/100 RBC (Bld) 3.3 % 0.5-1.5 [facility] Sodium [Moles/volume] in Uri neOrdered By: Ivy Thomas on 02-02-2023 Sodium (U) [Moles/Vol] 65.0 mmol/L F [facility] Comment on above: No reference range e stablished Sodium, Urineon 02-02-2023 Sodium (U) [Moles/Vol] 65.0 mmol/L Normal F [facility] Comment on above: Result Comment: No r eference range established PERFORMED BY: [place] [address] PATHOLOGIST HEAD FILTER PRESS TENDER KWADWO PULIDO M.D. Performed By: #### U OSCAR AVALOS ####[facility] [id number] [place] [address] [facility] Transferrin [Mass/volume] in Serum or PlasmaOrdered By: Ivy Thomas on 02-02-2023 Transferrin [Mass/Vol] 201 mg/dL 203-362 [facility] ABO/Rh Retypeon 02-01-2023 ABO/RH Recheck Result Positive Normal [facility] Comment on above: Result Comment: PERF ORMED BY: [facility] [address] [place] [address] PATHOLOGIST HEAD FILTER PRESS TENDER KWADWO PULIDO M.D. Alanine aminotransferase [En zymatic activity/volume] in Serum or PlasmaOrdered By: Syd Muir on 02-01-2023 ALT [Catalytic activity/Vol] 14 U/L 7-52 [facility] Albumin [Mass/volume] in Ser um or Plasma by Bromocresol green (BCG) dye binding methoOrdered By: Syd Muir on 02-01-2023 Albumin BCG dye [Mass/Vol] 3.3 g/dL 3.5-5.7 [facility] Alkaline phosphatase [Enzyma tic activity/volume] in Serum or PlasmaOrdered By: Syd Muir on 02-01-2023 ALP [Catalytic activity/Vol] 100 U/L 34-104 [facility] Aspartate aminotransferase [ Enzymatic activity/volume] in Serum or PlasmaOrdered By: Syd Muir on 02-01-2023 AST [Catalytic activity/Vol] 24 U/L 13-39 [facility] Bilirubin.total [Mass/volume ] in Serum or PlasmaOrdered By: Syd Muir on 02-01-2023 Bilirubin [Mass/Vol] 0.8 mg/dL 0.3-1.0 [facility] Complete Blood Count Auto Di ffon 02-01-2023 Basophils (Bld) [#/Vol] 0.0 10*3/uL Normal 0.0-0.2 [facility] Comment on above: Result Comment: PERF ORMED BY: [facility] [address] [place] [address] PATHOLOGIST HEAD FILTER PRESS TENDER KWADWO PULIDO M.D. Performed By: #### C BC, CMP, PAB #### [facility] [address] [place] [address] [place] Basophils/100 WBC (Bld) 0.4 % Normal . F [facility] Comment on above: Performed By: #### C BC, CMP, PAB #### [facility] [address] Eosinophils (Bld) [#/Vol] 0.1 10*3/uL Normal 0.0-0.45 [facility] Comment on above: Performed By: #### C BC, CMP, PAB #### [facility] [address] Eosinophils/100 WBC (Bld) 1.7 % Normal . [facility] Comment on above: Performed By: #### C BC, CMP, PAB #### [address] Erythrocyte distribution width (RBC) [Ratio] 14.5 % Normal 11.9-15.3 [facility] Comment on above: Performed By: #### C BC, CMP, PAB #### [address] Hematocrit (Bld) [Volume fraction] 19.4 % Off scale low 34.0-46.4 [facility] Comment on above: Result Comment: Crit ical value result called at 0754 on 02/01/23 Performed By: #### C BC, CMP, PAB #### [address] Hemoglobin (Bld) [Mass/Vol] 6.6 g/dL Low 11.8-15.4 [facility] Comment on above: Performed By: #### C BC, CMP, PAB #### [address] Lymphocytes (Bld) [#/Vol] 0.7 10*3/uL Low 1.00-4.8 [facility] Comment on above: Performed By: #### C BC, CMP, PAB #### [place] [address] Lymphocytes/100 WBC (Bld) 11.1 % Normal . [facility] Comment on above: Performed By: #### C BC CMP, PAB #### [facility] [address] MCH (RBC) [Entitic mass] 34.6 pg High 24.7-34.3 [facility] Comment on above: Performed By: #### C BC CMP, PAB #### [facility] [address] MCV (RBC) [Entitic vol] 101.4 fL High 80-100 F [facility] Comment on above: Performed By: #### C ERROL CMP, PAB #### [address] Mean Corpuscular HGB Conc 34.1 g/dL Normal 32.0-35.0 [facility] Comment on above: Performed By: #### C BC CMP, PAB #### [place] [address] [place] Monocytes (Bld) [#/Vol] 0.5 10*3/uL Normal 0.0-0.8 [facility] Comment on above: Performed By: #### C ERROL CMP, PAB #### [place] [address] [place] Monocytes/100 WBC (Bld) 7.7 % Normal . F [facility] Comment on above: Performed By: #### C BC CMP, PAB #### [place] [address] [place] Neutrophils (Bld) [#/Vol] 4.8 10*3/uL Normal 1.8-7.7 [facility] Comment on above: Performed By: #### C BC CMP, PAB #### [place] [address] [place] Neutrophils/100 WBC (Bld) 79.1 % Normal . [facility] Comment on above: Performed By: #### C BC CMP, PAB #### [facility] [address] NRBC% 0.2 /100{WBC} Normal 0-0.5 [facility] Comment on above: Performed By: #### C BC, CMP, PAB #### [address] Platelet mean volume (Bld) [Entitic vol] 6.7 fL Normal 6.3-10.7 [facility] Comment on above: Performed By: #### C BC, CMP, PAB #### [address] Platelets (Bld) [#/Vol] 278 10*3/uL Normal 150-450 [facility] Comment on above: Performed By: #### C BC, CMP, PAB #### [address] RBC (Bld) [#/Vol] 1.91 10*6/uL Low 3.60-5.00 [facility] Comment on above: Performed By: #### C BC, CMP, PAB #### [address] WBC (Bld) [#/Vol] 6.1 10*3/uL Normal 3.8-11.6 [facility] Comment on above: Performed By: #### C BC, CMP, PAB #### [address] Comprehensive Metabolic Pane edel 02-01-2023 Albumin [Mass/Vol] 3.3 g/dL Low 3.5-5.7 [facility] Comment on above: Performed By: #### C BC, CMP, PAB #### [address] Albumin/Globulin [Mass ratio] 1.7 {ratio} Normal [facility] Comment on above: Performed By: #### C BC, CMP, PAB #### [address] ALP [Catalytic activity/Vol] 100 U/L Normal 34-104 [facility] Comment on above: Performed By: #### C BC, CMP, PAB #### [facility] [address] [place] [id number] [place] ALT [Catalytic activity/Vol] 14 U/L Normal 7-52 [facility] Comment on above: Performed By: #### C BC, CMP, PAB #### [facility] [address] [place] [address] [place] Anion gap [Moles/Vol] 10.0 mmol/L Normal 6.0-15.0 [facility] Comment on above: Performed By: #### C BC, CMP, PAB #### [facility] [address] [place] [phone] [place] AST [Catalytic activity/Vol] 24 U/L Normal 13-39 [facility] Comment on above: Performed By: #### C BC, CMP, PAB #### [facility] [address] [place] [phone] [place] Bilirubin [Mass/Vol] 0.8 mg/dL Normal 0.3-1.0 [facility] Comment on above: Performed By: #### C BC, CMP, PAB #### [facility] [address] [place] [phone] [place] Calcium [Mass/Vol] 8.4 mg/dL Low 8.6-10.3 [facility] Comment on above: Performed By: #### C BC, CMP, PAB #### [facility] [address] [place] [phone] [place] Chloride [Moles/Vol] 99 mmol/L Normal 98-107 [facility] Comment on above: Performed By: #### C BC, CMP, PAB #### [facility] [address] [place] [address] [place] CO2 [Moles/Vol] 26.4 mmol/L Normal 21.0-31.0 [facility] Comment on above: Performed By: #### C BC, CMP, PAB #### [facility] [address] [place] [address] [place] Creatinine [Mass/Vol] 1.16 mg/dL Normal 0.60-1.20 [facility] Comment on above: Performed By: #### C MEGGAN NORTON, PAB #### [facility] [address] [place] [address] [place] Creatinine Clr Calc Pharmacy 39.13 [facility] Comment on above: Performed By: #### C MEGGAN NORTON, PAB #### [facility] [address] [place] [address] [place] GFR/1.73 sq M.predicted MDRD (S/P/Bld) [Vol rate/Area] 48.558 mL/min/{1.73_m2} Normal [facility] Comment on above: Performed By: #### C MEGGAN NORTON, PAB #### [facility] [address] Globulin (S) [Mass/Vol] 1.9 g/dL Normal [facility] Comment on above: Performed By: #### C MEGGAN NORTON, PAB #### [address] Glucose [Mass/Vol] 94 mg/dL Normal 70-100 [facility] Comment on above: Result Comment: [facility] Glucose Reference Range is dependent on time and content of last meal. Glucose of more than 200 mg/dL in a nonstressed, ambulatory subject supports the diagnosis of Diabetes Mellitus. ADA recommended reference range Performed By: #### C MEGGAN NORTON, PAB #### [facility] [address] Potassium [Moles/Vol] 4.4 mmol/L Normal 3.5-5.1 [facility] Comment on above: Performed By: #### C MEGGAN NORTON, PAB #### [facility] [address] Protein [Mass/Vol] 5.2 g/dL Low 6.4-8.9 [facility] Comment on above: Performed By: #### C MEGGAN NORTON, PAB #### [facility] [address] Sodium [Moles/Vol] 131 mmol/L Low 136-145 [facility] Comment on above: Performed By: #### C MEGGAN NORTON, PAB #### [facility] [address] [place] [phone] [facility] Urea nitrogen [Mass/Vol] 17 mg/dL Normal 7-25 [facility] Comment on above: Performed By: #### C BC, CMP, PAB #### [facility] [address] [place] [phone] [facility] Direct [place] 02-01-2023 Polyspecific AHG Negative Normal [facility] Comment on above: Result Comment: PERF ORMED BY: [facility] [address] [place] [address] PATHOLOGIST HEAD FILTER PRESS TENDER KWADWO PULIDO M.D. Globulin Calc (S) [Mass/Vol] Ordered By: Syd Muir on 02-01-2023 Globulin (S) [Mass/Vol] 1.9 g/dL F [facility] LeukoReduced RBCon LeukoReduced RBC TRANSFUSED 02/02/232056 Normal [facility] Prealbuminon 02-01-2023 Prealbumin [Mass/Vol] 14.7 mg/dL Low 17.0-34.0 [facility] Comment on above: Result Comment: PERF ORMED BY: [place] [address] PATHOLOGIST HEAD FILTER PRESS TENDER KWADWO PULIDO M.D. Performed By: #### C BC, CMP, PAB #### [facility] [address] [place], [place] [id number] [facility] Prealbumin [Mass/volume] in Serum or PlasmaOrdered By: Syd Muir on 02-01-2023 Prealbumin [Mass/Vol] 14.7 mg/dL 17.0-34.0 [facility] Protein [Mass/volume] in Ser um or PlasmaOrdered By: Syd Muir on 02-01-2023 Protein [Mass/Vol] 5.2 g/dL 6.4-8.9 [facility] Serum or plasma albumin/glob ulin mass ratioOrdered By: Syd Muir on 02-01-2023 Albumin/Globulin [Mass ratio] 1.7 {ratio} [facility] Type and Screenon 02-01-2023 ABO and Rh group Nom (Bld) Blood group A Rh(D) positive [facility] Comment on above: Order Comment: Trans fuse now? Y Number of units to transfuse now? 2 Result Comment: PERF ORMED BY: [place] [address] PATHOLOGIST HEAD FILTER PRESS TENDER KWADWO PULIDO M.D. US venous duplex LE BIon US venous duplex LE BI [facility] [address] [place] [id number] Ultrasound Report Signed Patient: Kiki Moore MR#: [id number] [birth year] : 1945 Acct:[id number] Age/Sex: 78 / F ADM Date: 01/31/23 Loc: Room: 5A4467-0 Type: ADM IN Attending Dr: Syd Muir [...] Arvind James MD02/01/2023 6:52 AM [facility] Tech: Sabina Brandt Transcribed By: [facility] 02/01/23 0652 Dictated By: Arvind James MD 02/01/23 0651 Signed By: 02/01/23 0652 [facility] XR knee LT 4V*on 02-01-2023 XR knee LT 4V* [facility] [address] [place] [id number] XRay Report Signed Patient: Kiki Moore MR#: [id number] 01 : 1945 Acct:[id number] Age/Sex: 78 / F ADM Date: 01/31/23 Loc: Room: 6N5307-7 Type: ADM IN Attending Dr: Syd Muir [...] Catalina Strickland M.D.02/01/2023 3:17 PM Dictation Location: [place] [address] Transcribed By: [facility] 02/01/23 151 Dictated By: Catalina Strickland MD 02/01/23 151 Signed By: 02/01/23 1517 [facility] CBC panel Auto (Bld)on 01-19 Erythrocyte distribution width (RBC) [Ratio] 13.2 % Normal 11.5-15.0 [facility] Comment on above: Order Comment: Speci men Type: BLOOD SPECIMENOrdering Facility: [facility] Address: [address] [id number] Performed By: #### 5 8410-2 ####[facility] LABORATORYCLIA [id number] [facility] [place] [address] [place] Hematocrit (Bld) [Volume fraction] 23.2 % Low 36.0-46.0 [facility] Comment on above: Order Comment: Tamiko marshall Type: BLOOD SPECIMENOrdering Facility: [facility] Address: [address] [address] Performed By: #### 5 8410-2 ####[facility] [id number] [place] [address] [place] Hemoglobin (Bld) [Mass/Vol] 7.6 g/dL Low 11.5-15.5 [facility] Comment on above: Order Comment: Speci men Type: BLOOD SPECIMENOrdering Facility: [facility] Address: [address] [place] [address] Performed By: #### 5 8410-2 ####[facility] [id number] [address] [place] MCH (RBC) [Entitic mass] 33.2 pg Normal 26.0-34.0 [facility] Comment on above: Order Comment: Speci men Type: BLOOD SPECIMENOrdering Facility: [facility] Address: [address] [place] [address] Performed By: #### 5 8410-2 ####[facility] [id number] [address] [place] MCHC (RBC) [Mass/Vol] 32.8 g/dL Normal 30.5-36.0 [facility] Comment on above: Order Comment: Speci men Type: BLOOD SPECIMENOrdering Facility: [facility] Address: [address] [place] [address] Performed By: #### 5 8410-2 ####[facility] [id number] [address] [place] MCV (RBC) [Entitic vol] 101.3 fL High 80.0-100.0 [facility] Comment on above: Order Comment: Speci men Type: BLOOD SPECIMENOrdering Facility: [facility] Address: [address] [place], [place] [address] Performed By: #### 5 8410-2 ####[facility] [id number] [address] [place] Nucleated RBC (Bld) [#/Vol] 10*3/uL Normal <0.01 [facility] Comment on above: Order Comment: Speci men Type: BLOOD SPECIMENOrdering Facility: [facility] Address: [address] [address] Performed By: #### 5 8410-2 ####[facility] [id number] [place] [address] [place] Platelet mean volume (Bld) [Entitic vol] 10.2 fL Normal 9.0-12.7 [facility] Comment on above: Order Comment: Speci men Type: BLOOD SPECIMENOrdering Facility: [facility] Address: [address] [place] [address] Performed By: #### 5 8410-2 ####[facility] [id number] [place] [address] [place] Platelets (Bld) [#/Vol] 153 10*3/uL Normal 150-400 [facility] Comment on above: Order Comment: Speci men Type: BLOOD SPECIMENOrdering Facility: [facility] Address: [address] Performed By: #### 5 8410-2 ####[facility] [id number] [place] [address] [place] RBC (Bld) [#/Vol] 2.29 10*6/uL Low 3.90-5.20 [facility] Comment on above: Order Comment: Speci men Type: BLOOD SPECIMENOrdering Facility: [facility] Address: [address] Performed By: #### 5 8410-2 ####[facility] LABORATORYIA [id number] [place] [address] [place] WBC (Bld) [#/Vol] 12.19 10*3/uL High 3.70-11.00 [facility] Comment on above: Order Comment: Speci men Type: BLOOD SPECIMENOrdering Facility: [facility] Address: [address] [address] Performed By: #### 5 8410-2 ####[facility] [id number] [facility] [place] [address] [facility] CNDSon 01-19-2023 [facility] HNO ID: [id number] Author: Gaby Solorzano PA-C Service: Orthopaedic Surgery Author Type: Physician Weight Caller Type: Discharge Summary Filed: 01/19/2023 12:35 PM [...] Patient Condition at Discharge: Stable Discharge Disposition: Care Home Facility DISCHARGE MEDICATION: Medication List START taking [...] Dept Phone 02/10/2023 10:30 AM JUDIT JARRELL [phone] 03/01/2023 1:15 PM JOSHAN MIGUEL Jo [phone] SIGNATURE: Gaby Solorzano PA-C PATIENT NAME: Kiki Moore DATE: 01/19/23 TIME: 11:22 AM Normal [facility] CONSULT PROGon 01-19-2023 CONSULT PROG HNO ID: [id number] Author: Jc Pennington MD Service: Hospital Medicine Author Type: Physician Type: Consult Progress Note Filed: 01/19/2023 11:55 AM Note Text: DEPARTMENT OF HOSPITAL MEDICINE CONSULT PROGRESS NOTE SERVICE DATE: 01/19/2023 SERVICE TIME: 11:51 AM Primary Care Physician: MAINE Arias PA-C NIGHT AND WEEKEND COVERAGE: [place] COVERAGE: Days: [phone], please contact via [employer] Nights: [phone] - floor: please page CC Hospitalist night cover [phone] - 4th floor: please page CC Hospitalist night cover [phone] - 5th floor: please page CC Hospitalist night cover [phone] Subjective INTERVAL HPI: Pt says she feels [...] January 19, 2023 TIME: 11:51 AM etx [id number] Normal [facility] Magnesium SerPl-mCncon 01-19 Magnesium [Mass/Vol] 1.5 mg/dL Low 1.7-2.3 [facility] Comment on above: Order Comment: Tamiko marshall Type: BLOOD SPECIMENOrdering Facility: [facility] Address: [address] [phone] Performed By: #### 2 4362-6, ####[facility] LABORATORYCLIA [id number] [facility] [place] [address] [facility] [place] Renal function 2000 panelon 01-19-2023 Albumin [Mass/Vol] 3.4 g/dL Low 3.9-4.9 [facility] Comment on above: Order Comment: Specchace marshall Type: BLOOD SPECIMENOrdering Facility: [facility] Address: [address] [address] Performed By: #### 2 4362-6, ####[facility] LABORATORYCLIA [id number] [place] [address] [place] Anion gap [Moles/Vol] 12 mmol/L Normal 9-18 [facility] Comment on above: Order Comment: Speci men Type: BLOOD SPECIMENOrdering Facility: [facility] Address: [address] [address] Performed By: #### 2 4362-6, ####[facility] LABORATORYCLIA [id number] [place] [address] [place] Calcium [Mass/Vol] 8.1 mg/dL Low 8.5-10.2 [facility] Comment on above: Order Comment: Speci men Type: BLOOD SPECIMENOrdering Facility: [facility] Address: [address] [address] Performed By: #### 2 4362-6, ####[facility] LABORATORYCLIA [id number] [place] [address] [place] Chloride [Moles/Vol] 97 mmol/L Normal 97-105 [facility] Comment on above: Order Comment: Speci men Type: BLOOD SPECIMENOrdering Facility: [facility] Address: [address] [address] Performed By: #### 2 4362-6, ####[facility] LABORATORYIA [id number] [place] [address] [place] CO2 [Moles/Vol] 20 mmol/L Low 22-30 [facility] Comment on above: Order Comment: Speci men Type: BLOOD SPECIMENOrdering Facility: [facility] Address: [address] Performed By: #### 2 4362-6, ####[facility] LABORATORYCLIA [id number] [place] [address] [place] Creatinine [Mass/Vol] 1.12 mg/dL High 0.58-0.96 [facility] Comment on above: Order Comment: Speci men Type: BLOOD SPECIMENOrdering Facility: [facility] Address: [address] [address] Performed By: #### 2 4362-6, ####[facility] LABORATORYCLIA [id number] [facility] [place] [address] [place] Creatinine and Glomerular filtration rate.predicted panel (S/P/Bld) 51 mL/min/1.73m??? Low >=60 [facility] Comment on above: Order Comment: Tamiko marshall Type: BLOOD SPECIMENOrdering Facility: [facility] Address: [address] Result Comment: Karen mated Glomerular Filtration [...] GFR. Performed By: #### 2 4362-6, ####[facility] LABORATORYCLIA [id number] [facility] [place] [address] [place] Glucose [Mass/Vol] 101 mg/dL High 74-99 [facility] Comment on above: Order Comment: Tamiko marshall Type: BLOOD SPECIMENOrdering Facility: [facility] Address: [address] [place] [address] Result Comment: The [place] Diabetes Association (ADA) provides guidance for cutoff [...] Standards of Medical Care in Diabetes 2016, [place] [employer]. Diabetes Care. 2016.39(Suppl 1). Performed By: #### 2 4362-6, ####[facility] LABORATORYCLIA [id number] [place] [address] [place] Phosphate [Mass/Vol] 3.6 mg/dL Normal 2.7-4.8 [facility] Comment on above: Order Comment: Speci men Type: BLOOD SPECIMENOrdering Facility: [facility] Address: [address] [place] [address] Performed By: #### 2 4362-6, ####[facility] LABORATORYCLIA [id number] [place] [address] [place] Potassium [Moles/Vol] 4.7 mmol/L Normal 3.7-5.1 [facility] Comment on above: Order Comment: Speci men Type: BLOOD SPECIMENOrdering Facility: [facility] Address: [address] [place] [address] Performed By: #### 2 4362-6, ####[facility] [id number] [place] [address] [place] Sodium [Moles/Vol] 129 mmol/L Low 136-144 [facility] Comment on above: Order Comment: Speci men Type: BLOOD SPECIMENOrdering Facility: [facility] Address: [address] [place] [address] Performed By: #### 2 4362-6, ####[facility] [id number] [place] [address] [place] Urea nitrogen [Mass/Vol] 33 mg/dL High 7-21 [facility] Comment on above: Order Comment: Speci men Type: BLOOD SPECIMENOrdering Facility: [facility] Address: [address] [place] [address] Performed By: #### 2 4362-6, ####[facility] LABORATORYIA [id number] [place] [address] [place] THERAPY NTon 01-19-2023 THERAPY NT HNO ID: [id number] Author: Katerine Shook, PT, DPT Service: Physical Therapy Author Type: Physical Therapist Type: Therapy (PT/OT/Speech/Resp) Filed: 01/19/2023 11:28 AM Note Text: Physical Therapy Treatment SERVICE DATE: 01/19/2023 SERVICE TIME: 09 to 999 ROOM: [place] [address] Total Joint Replacement Discharge Readiness: Pending Physical Therapy Clearance Recommended Discharge Disposition: Acute Rehab Recommended Discharge Disposition Comments: Pt requiring mod A for transfers and unable to tolerate increased ambulation d/t difficulty using the walker with UEs. Pt would benefit from post-acute PT at [facility]. Recommended Discharge Disposition Due to: Patient requires [...] Commode- Raised, Grab Bars- Shower, Lift Chair, Web Sizer, Sock Aid, Long Handled Shoe Horn Prior [...] Diagnosis: Reduced mobility-other Interventions Provided: Gait Training (78324), Therapeutic Exercise (69327) Therapeutic Exercise (21622) Treatment Minutes: 13 $ Therapeutic Exercise (45546) Billed Units: 1 unit Gait Training (92806) Treatment Minutes: 10 $ Gait Training (79892) Billed Units: 1 unit Training AND Education Provided in: Assistive Device Use, Benefits of In-Hospital Mobility, Discharge Planning, Equipment, Exercise Program, Gait Pattern, Reduction of Deviations, Handout Issued, Precautions/Restrictions, Pre-gait Activities, Role of Physical Therapy, Sitting Balance, Standing Balance, Transfers The Following Therapeutic Skills Were Used: Activity Dosing, Cues for Sequencing/Proper Technique for Activity, Facilitation of Joint R (more content not included)... [facility] THERAPY NT HNO ID: [id number] Author: Alysia Pereira OT/L Service: Occupational Therapy Author Type: Occupational Therapist Type: Therapy (PT/OT/Speech/Resp) Filed: 01/19/2023 9:27 AM Note Text: Occupational Therapy Treatment SERVICE DATE: 01/19/2023 SERVICE TIME: 0822 to 0845 ROOM: [place] [address] Total Joint Replacement Discharge Readiness: Pending Occupational [...] Commode- Raised, Grab Bars- Shower, Lift Chair, Web Sizer, Sock Aid, Long Handled Shoe Horn Prior [...] General symptoms and signs-other Interventions Provided: Self Half-Way Management (36652) Self Half-Way Management (86608) Treatment Minutes: 23 $ Self Half-Way Management (87235) Billed Units: 2 units Training AND Education Provided in: Assistive Device Use, Bed Mobility, Benefits of In-Hospital Mobility, Discharge Planning, Expected Functional Level, Positioning, Precautions/Restrictions, Role (more content not included)... Normal [facility] Basic metabolic 2000 panelon 01-18-2023 Anion gap [Moles/Vol] 7 mmol/L Low 9-18 [facility] Comment on above: Order Comment: Speci men Type: BLOOD SPECIMENOrdering Facility: [facility] Address: [address] [place] [address] Performed By: #### 2 4321-2 ####[facility] LABORATORYCLIA [id number] [facility] [place] [address] [place] Calcium [Mass/Vol] 8.4 mg/dL Low 8.5-10.2 [facility] Comment on above: Order Comment: Speci men Type: BLOOD SPECIMENOrdering Facility: [facility] Address: [address] [address] Performed By: #### 2 4321-2 ####[facility] LABORATORYCLIA [id number] [place] [address] [place] Chloride [Moles/Vol] 98 mmol/L Normal 97-105 [facility] Comment on above: Order Comment: Speci men Type: BLOOD SPECIMENOrdering Facility: [facility] Address: [address] [place] [address] Performed By: #### 2 4321-2 ####[facility] LABORATORYCLIA [id number] [place] [address] [place] CO2 [Moles/Vol] 21 mmol/L Low 22-30 [facility] Comment on above: Order Comment: Speci men Type: BLOOD SPECIMENOrdering Facility: [facility] Address: [address] [place] [address] Performed By: #### 2 4321-2 ####[facility] LABORATORYCLIA [id number] [place] [address] [place] Creatinine [Mass/Vol] 1.26 mg/dL High 0.58-0.96 [facility] Comment on above: Order Comment: Speci men Type: BLOOD SPECIMENOrdering Facility: [facility] Address: [address] [place], [place] [address] Performed By: #### 2 4321-2 ####[facility] LABORATORYCLIA [id number] [place] [address] [place] Creatinine and Glomerular filtration rate.predicted panel (S/P/Bld) 44 mL/min/1.73m??? Low >=60 [facility] Comment on above: Order Comment: Speci men Type: BLOOD SPECIMENOrdering Facility: [facility] Address: [address] [place], [place] [id number] Result Comment: Karen mated Glomerular Filtration Rate [...] GFR. Performed By: #### 2 4321-2 ####[facility] LABORATORYIA [id number] [place] [address] [place] Glucose [Mass/Vol] 161 mg/dL High 74-99 [facility] Comment on above: Order Comment: Speci men Type: BLOOD SPECIMENOrdering Facility: [facility] Address: [address] [place] [address] Result Comment: The [place] Diabetes Association (ADA) provides guidance for cutoff [...] Standards of Medical Care in Diabetes 2016, [place] [employer]. Diabetes Care. 2016.39(Suppl 1). Performed By: #### 2 4321-2 ####[facility] LABORATORYCLIA [id number] [place] [address] [place] Potassium [Moles/Vol] 5.8 mmol/L High 3.7-5.1 [facility] Comment on above: Order Comment: Speci men Type: BLOOD SPECIMENOrdering Facility: [facility] Address: [address] [place] [id number] Performed By: #### 2 4321-2 ####[facility] LABORATORYCLIA [id number] [place] [address] [place] Sodium [Moles/Vol] 126 mmol/L Low 136-144 [facility] Comment on above: Order Comment: Speci men Type: BLOOD SPECIMENOrdering Facility: [facility] Address: [address] [address] Performed By: #### 2 4321-2 ####[facility] LABORATORYCLIA [id number] [place] [address] [place] Urea nitrogen [Mass/Vol] 32 mg/dL High 7-21 [facility] Comment on above: Order Comment: Speci men Type: BLOOD SPECIMENOrdering Facility: [facility] Address: [address] [address] Performed By: #### 2 4321-2 ####[facility] LABORATORYCLIA [id number] [place] [address] [place] CBC panel Auto (Bld)on 01-18 Erythrocyte distribution width (RBC) [Ratio] 13.0 % Normal 11.5-15.0 [facility] Comment on above: Order Comment: Speci men Type: BLOOD SPECIMENOrdering Facility: [facility] Address: [address] [address] Performed By: #### 5 8410-2 ####[facility] LABORATORYCLIA [id number] [place] [address] [place] Hematocrit (Bld) [Volume fraction] 23.1 % Low 36.0-46.0 [facility] Comment on above: Order Comment: Speci men Type: BLOOD SPECIMENOrdering Facility: [facility] Address: [address] [address] Performed By: #### 5 8410-2 ####[facility] LABORATORYCLIA [id number] [place] [address] [place] Hemoglobin (Bld) [Mass/Vol] 7.8 g/dL Low 11.5-15.5 [facility] Comment on above: Order Comment: Speci men Type: BLOOD SPECIMENOrdering Facility: [facility] Address: [address] [address] Performed By: #### 5 8410-2 ####[facility] [place] [id number] [address] [place] MCH (RBC) [Entitic mass] 34.5 pg High 26.0-34.0 [facility] Comment on above: Order Comment: Speci men Type: BLOOD SPECIMENOrdering Facility: [facility] Address: [address] [place] [address] Performed By: #### 5 8410-2 ####[facility] [place] [id number] [address] [place] MCHC (RBC) [Mass/Vol] 33.8 g/dL Normal 30.5-36.0 [facility] Comment on above: Order Comment: Speci men Type: BLOOD SPECIMENOrdering Facility: [facility] Address: [address] [place] [address] Performed By: #### 5 8410-2 ####[facility] [place] [id number] [address] OF [facility] MCV (RBC) [Entitic vol] 102.2 fL High 80.0-100.0 [facility] Comment on above: Order Comment: Speci men Type: BLOOD SPECIMENOrdering Facility: [facility] Address: [address] [place] [address] Performed By: #### 5 8410-2 ####[facility] [place] [id number] [address] [place] Nucleated RBC (Bld) [#/Vol] 10*3/uL Normal <0.01 [facility] Comment on above: Order Comment: Speci men Type: BLOOD SPECIMENOrdering Facility: [facility] Address: [address] [place] [address] Performed By: #### 5 8410-2 ####[facility] [place] [id number] [address] [place] Platelet mean volume (Bld) [Entitic vol] 9.7 fL Normal 9.0-12.7 [facility] Comment on above: Order Comment: Speci men Type: BLOOD SPECIMENOrdering Facility: [facility] Address: [address] [address] Performed By: #### 5 8410-2 ####[facility] LABORATORYIA [id number] [place] [address] [facility] Platelets (Bld) [#/Vol] 137 10*3/uL Low 150-400 [facility] Comment on above: Order Comment: Speci men Type: BLOOD SPECIMENOrdering Facility: [facility] Address: [address] [place] [address] Performed By: #### 5 8410-2 ####[facility]PITAL[facility] [id number] [address] [id number] [facility] OF [place] RBC (Bld) [#/Vol] 2.26 10*6/uL Low 3.90-5.20 [facility] Comment on above: Order Comment: Speci men Type: BLOOD SPECIMENOrdering Facility: [facility] Address: [address] [address] Performed By: #### 5 8410-2 ####[facility]PITALIA [id number] [place] [id number] [facility] OF [place] WBC (Bld) [#/Vol] 11.61 10*3/uL High 3.70-11.00 [facility] Comment on above: Order Comment: Speci men Type: BLOOD SPECIMENOrdering Facility: [facility] Address: [address] [place] [address] Performed By: #### 5 8410-2 ####[facility]PITALIA [id number] [place] [id number] [facility] OF [place] CONSULT PROGon 01-18-2023 CONSULT PROG HNO ID: [id number] Author: Jc Pennington MD Service: Hospital Medicine Author Type: Physician Type: Consult Progress Note Filed: 01/18/2023 2:52 PM Note Text: DEPARTMENT OF HOSPITAL MEDICINE CONSULT PROGRESS NOTE SERVICE DATE: 01/18/2023 SERVICE TIME: 2:46 PM Primary Care Physician: MAINE Arias, PA-C NIGHT AND WEEKEND COVERAGE: KARINA COVERAGE: Days: [phone], please contact via [employer] Nights: [phone] - 3rd floor: please page CC Hospitalist night cover [phone] - 4th floor: please page CC Hospitalist night cover [phone] - 5th floor: please page CC Hospitalist night cover [phone] Subjective INTERVAL HPI: Pt says she feels [...] January 18, 2023 TIME: 2:46 PM etx [id number] [facility] THERAPY NT 01-18-2023 THERAPY NT HNO ID: [id number] Author: Katerine Shook, PT, DPT Service: Physical Therapy Author Type: Physical Therapist Type: Therapy (PT/OT/Speech/Resp) Filed: 01/18/2023 2:43 PM Note Text: Physical Therapy Treatment SERVICE DATE: 01/18/2023 SERVICE TIME: 1405 to 1428 ROOM: [address] [address] Total Joint Replacement Discharge Readiness: Pending Physical Therapy Clearance Recommended Discharge Disposition: Acute Rehab Recommended Discharge Disposition Comments: Pt requiring mod A for transfers and unable to tolerate increased ambulation d/t difficulty using the walker with UEs. Pt would benefit from post-acute PT at [facility]. Recommended Discharge Disposition Due to: Patient requires [...] Commode- Raised, Grab Bars- Shower, Lift Chair, Web Sizer, Sock Aid, Long Handled Shoe Horn Prior [...] Diagnosis: Reduced mobility-other Interventions Provided: Gait Training (54581), Therapeutic Exercise (94916) Therapeutic Exercise (92702) Treatment Minutes: 15 $ Therapeutic Exercise (09147) Billed Units: 1 unit Gait Training (78826) Treatment Minutes: 8 $ Gait Training (59525) Billed Units: 1 unit Training AND Education Provided in: Assistive Device Use, Benefits of In-Hospital Mobility, Discharge Planning, Equipment, Exercise Program, Gait Pattern, Reduction of Deviations, Handout Issued, Precautions/Restrictions, Pre-gait Activities, Role of Physical Therapy, Sitting Balance, Nam (more content not included)... Normal [facility] THERAPY NT HNO ID: [id number] Author: Alysia Pereira OT/L Service: Occupational Therapy Author Type: Occupational Therapist Type: Therapy (PT/OT/Speech/Resp) Filed: 01/18/2023 1:43 PM Note Text: Occupational Therapy Evaluation SERVICE DATE: 01/18/2023 SERVICE TIME: 1049 to 1127 ROOM: [address] [address] Total Joint Replacement Discharge Readiness: Pending Occupational [...] Commode- Raised, Grab Bars- Shower, Lift Chair, Web Sizer, Sock Aid, Long Handled Shoe Horn Prior [...] symptoms and signs-other Interventions Provided: Evaluation, Self Half-Way Management (40426) $ Evaluation - Low (93573) Billed Units: 1 unit Self Half-Way Management (44308) Treatment Minutes: 23 $ Self Half-Way Management (92884) Billed Units: 2 units Training AND Education Provided in: Adaptive Equipment/DME, Assistive Device Use, Benefits of In-Hospital Mobility, Discharge Planning, Expected Functional Level, Grooming Tasks, Lower Extremity Dressing, Positioning, Precautions/Restrictions, Role of Occupational Therapy, Standing Balance to Improve [place] with ADLs/Self-Care, Transfer - Sit to Stand The Following Therapeutic Skills Were Used: Activity Dosing, Cues for Sequencing/Proper Technique for Activity, Cuing Verbal, Movement Fa (more content not included)... Normal [facility] THERAPY NT HNO ID: [id number] Author: Katerine Shook, PT, DPT Service: Physical Therapy Author Type: Physical Therapist Type: Therapy (PT/OT/Speech/Resp) Filed: 01/18/2023 9:40 AM Note Text: Physical Therapy Treatment SERVICE DATE: 01/18/2023 SERVICE TIME: 0850 to 15 ROOM: [address] [address] Total Joint Replacement Discharge Readiness: Pending Physical [...] Commode- Raised, Grab Bars- Shower, Lift Chair, Web Sizer, Sock Aid (leg agency cashier) Prior Functional Level: Within Functional Limits Prior [...] Diagnosis: Reduced mobility-other Interventions Provided: Therapeutic Activity (92711), Therapeutic Exercise (36529) Therapeutic Exercise (82501) Treatment Minutes: 10 $ Therapeutic Exercise (80352) Billed Units: 1 unit Therapeutic Activity (07698) Treatment Minutes: 15 $ Therapeutic Activity (10201) Billed Units: 1 unit Training AND Education [...] Task Learning, Physica (more content not included)... [facility] ANES POSTPROC EVALon 023 ANES POSTPROC EVAL HNO ID: [id number] Author: Pedro Santana MD Service: Anesthesiology Author [...] January 17, 2023 TIME: 3:48 PM CSN: [id number] [facility] ANES PRE-OPon 01-17-2023 ANES PRE-OP HNO ID: [id number] Author: Pedro Santana MD Service: Anesthesiology Author [...] and consent discussed: yes. Patient / Responsible Green Party agrees to proceed: yes Patient / [...] January 17, 2023 TIME: 7:23 AM CSN: [id number] [facility] CONSULTon 01-17-2023 CONSULT HNO ID: [id number] Author: Miguelina Pedraza PA-C Service: Hospital Medicine Author Type: Physician Weight Caller Type: Consults Filed: 01/17/2023 9:18 PM Note Text: DEPARTMENT OF HOSPITAL MEDICINE INITIAL CONSULT SERVICE DATE: 01/17/2023 SERVICE TIME: 9:08 PM Primary Care Physician: MAINE Arias, PA-C NIGHT AND WEEKEND COVERAGE: KARINA COVERAGE: Days: [phone], please contact via [employer] Nights: [phone] - 3rd floor: please page CC Hospitalist night cover [phone] - 4th floor: please page CC Hospitalist night cover [phone] - 5th floor: please page CC Hospitalist night cover [phone] REASON FOR CONSULT: medical management REQUESTING PHYSICIAN: [...] ORAL DAILY aluminum-magn (more content not included)... [facility] OPERATIVE NOon 01-17-2023 OPERATIVE NO HNO ID: [id number] Author: Shan Box MD Service: Orthopaedic Surgery Author Type: Physician Type: Operative Report Filed: 01/17/2023 10:23 AM Note Text: [facility] OPERATIVE REPORT PATIENT NAME: Kiki Moore AGE: [age] year old LOG ID: [id number] Surgery Date: 01/17/2023 SURGEON: Shan Box MD [employer] SUPERVISOR: Judit Jarrell PA-C, SA, her assistance consisted [...] banked allogenic blood if medically necessary. IMPLANTS: [employer] Total Knee System SIZE TYPE Posterior Stabilized Femur 3 Forest Tibia 3 Aida Patella 31 mm [employer] Polyethylene 9 TS Aida OPERATIVE FINDINGS: There [...] which was verified with the spacer block jockey room custodian. Trial prosthesis was then removed. The tourniquet was deflated and hemostasis was obtained. We then jet lav (more content not included)... Normal [facility] THERAPY [facility] 01-17-2023 THERAPY NT HNO ID: [id number] Author: Katerine Shook, PT, DPT Service: Physical Therapy Author Type: Physical Therapist Type: Therapy (PT/OT/Speech/Resp) Filed: 01/17/2023 2:36 PM Note Text: Physical Therapy Evaluation SERVICE DATE: 01/17/2023 SERVICE TIME: 1400 to 1428 ROOM: [facility] () Total Joint Replacement Discharge Readiness: Pending [...] Commode- Raised, Grab Bars- Shower, Lift Chair, Web Sizer, Sock Aid (leg agency cashier) Prior Functional Level: Within Functional Limits Prior [...] Reduced mobility-other Interventions Provided: Evaluation, Therapeutic Exercise (96029), Therapeutic Activity (91423) $ Evaluation-Low (82762) Billed Units: 1 unit Therapeutic Exercise (32505) Treatment Minutes: 5 Therapeutic Activity (05240) Treatment Minutes: 8 $ Therapeutic Activity (23397) Billed Units: 1 unit Training AND Education [...] documentation flows (more content not included)... Normal [facility] XR KNEE 2V AP/LAT LTon 01-17 [...] ARTHROPLASTY WITH PATELLAR RESURFACING, NEW SINCE 10/26/2022. Entry Level Staff Accountant: MAGDALENE Transcribe Date/Time: Jan 17 2023 3:21P Dictated by : ROCCO STEWART MD This examination was interpreted and the report reviewed and electronically signed by: ROCCO STEWART MD on Jan 17 2023 3:23PM EST [id number] Normal [facility] CNCOon 01-02-[address] [facility] Comprehensive metabolic 2000 panelon 12-30-2022 Albumin [Mass/Vol] 4.2 g/dL Normal 3.9-4.9 [facility] Comment on above: Order Comment: Speci men Type: BLOOD SPECIMENOrdering Facility: [facility] Address: [address] [place] [address] Performed By: #### 2 4323-8 ####[facility] LABCLIA [id number] [place] [address] [place] ALP [Catalytic activity/Vol] 135 U/L High 34-123 [facility] Comment on above: Order Comment: Speci men Type: BLOOD SPECIMENOrdering Facility: [facility] Address: [address] [place] [address] Performed By: #### 2 4323-8 ####[facility] LABCLIA [id number] [place] [address] [place] ALT [Catalytic activity/Vol] 21 U/L Normal 7-38 [facility] Comment on above: Order Comment: Speci men Type: BLOOD SPECIMENOrdering Facility: [facility] Address: [address] [place] [address] Performed By: #### 2 4323-8 ####[facility] LABCLIA [id number] [place] [address] [place] Anion gap [Moles/Vol] 13 mmol/L Normal 9-18 [facility] Comment on above: Order Comment: Speci men Type: BLOOD SPECIMENOrdering Facility: [facility] Address: [address] [place] [address] Performed By: #### 2 4323-8 ####[facility] LABCLIA [id number] [address] [id number] [address] [place] AST [Catalytic activity/Vol] 36 U/L High 13-35 [facility] Comment on above: Order Comment: Speci men Type: BLOOD SPECIMENOrdering Facility: [facility] Address: [address] [place] [address] Performed By: #### 2 4323-8 ####[facility] LABCLIA [id number] [place] [address] [place] Bilirubin [Mass/Vol] 0.4 mg/dL Normal 0.2-1.3 [facility] Comment on above: Order Comment: Speci men Type: BLOOD SPECIMENOrdering Facility: [facility] Address: [address] [place] [address] Performed By: #### 2 4323-8 ####[facility] LABCLIA [id number] [place] [address] [place] Calcium [Mass/Vol] 9.2 mg/dL Normal 8.5-10.2 [facility] Comment on above: Order Comment: Speci men Type: BLOOD SPECIMENOrdering Facility: [facility] Address: [address] [place] [address] Performed By: #### 2 4323-8 ####[facility] LABIA [id number] [place] [address] [place] Chloride [Moles/Vol] 96 mmol/L Low 97-105 [facility] Comment on above: Order Comment: Speci men Type: BLOOD SPECIMENOrdering Facility: [facility] Address: [address] [place], [place] [address] Performed By: #### 2 4323-8 ####[facility] LABCLIA [id number] [place] [address] [place] CO2 [Moles/Vol] 21 mmol/L Low 22-30 [facility] Comment on above: Order Comment: Speci men Type: BLOOD SPECIMENOrdering Facility: [facility] Address: [address] [place], [place] [address] Performed By: #### 2 4323-8 ####[facility] LABIA [id number] [place] [address] [place] Creatinine [Mass/Vol] 1.15 mg/dL High 0.58-0.96 [facility] Comment on above: Order Comment: Speci men Type: BLOOD SPECIMENOrdering Facility: [facility] Address: [address] [facility] [address] Performed By: #### 2 4323-8 ####[facility] LABIA [id number] [place] [address] [place] ESTIMATED GLOMERULAR FILTRATION RATE 49 mL/min/1.73m??? Low >=60 [facility] Comment on above: Order Comment: Speci men Type: BLOOD SPECIMENOrdering Facility: [facility] Address: [address] [address] Result Comment: Karen mated Glomerular Filtration Rate [...] actual GFR. Performed By: #### 2 4323-8 ####[facility] LABIA [id number] [place] [address] [place] Glucose [Mass/Vol] 102 mg/dL High 74-99 [facility] Comment on above: Order Comment: Speci men Type: BLOOD SPECIMENOrdering Facility: [facility] Address: [address] Result Comment: The [place] Diabetes Association (ADA) provides guidance for cutoff [...] Standards of Medical Care in Diabetes 2016, [place] [employer]. Diabetes Care. 2016.39(Suppl 1). Performed By: #### 2 4323-8 ####[facility] LABCLIA [id number] [place] [address] [place] Potassium [Moles/Vol] 4.9 mmol/L Normal 3.7-5.1 [facility] Comment on above: Order Comment: Speci men Type: BLOOD SPECIMENOrdering Facility: [facility] Address: [address] [place] [address] Performed By: #### 2 4323-8 ####[facility] LABIA [id number] [place] [address] [place] Protein [Mass/Vol] 6.2 g/dL Low 6.3-8.0 [facility] Comment on above: Order Comment: Natii men Type: BLOOD SPECIMENOrdering Facility: [facility] Address: [address] [place] [address] Performed By: #### 2 4323-8 ####[facility] LABIA [id number] [place] [address] [place] Sodium [Moles/Vol] 130 mmol/L Low 136-144 [facility] Comment on above: Order Comment: Speci men Type: BLOOD SPECIMENOrdering Facility: [facility] Address: [address] [place] [address] Performed By: #### 2 4323-8 ####[facility] LABIA [id number] [place] [address] [place] Urea nitrogen [Mass/Vol] 22 mg/dL High 7-21 [facility] Comment on above: Order Comment: Speci men Type: BLOOD SPECIMENOrdering Facility: [facility] Address: [address] [address] Performed By: #### 2 4323-8 ####[facility] LABCLIA [id number] [place] [address] [place] Ferritin SerPl-mCncon 2022 Ferritin [Mass/Vol] 107.0 ng/mL Normal 14.7-205.1 [facility] Comment on above: Order Comment: Speci men Type: BLOOD SPECIMENOrdering Facility: [facility] Address: [address] [address] Performed By: #### 5 0190-8, 2276-4 ####[facility] LABCLIA [id number] [place] [address] [place] Iron and Iron binding capaci ty panelon 12-30-2022 Iron [Mass/Vol] 79 ug/dL Normal 41-186 [facility] Comment on above: Order Comment: Speci men Type: BLOOD SPECIMENOrdering Facility: [facility] Address: [address] [place] [address] Performed By: #### 5 0190-8, 2275-4 ####[facility] LABIA [id number] [address] [place] Iron binding capacity [Mass/Vol] 347 ug/dL Normal 232-386 [facility] Comment on above: Order Comment: Speci men Type: BLOOD SPECIMENOrdering Facility: [facility] Address: [address] Performed By: #### 5 0190-8, 2275-4 ####[facility] LABIA [id number] [place] [address] [place] Iron/TIBC [Molar ratio] 22.8 % Normal 15.0-57.0 [facility] Comment on above: Order Comment: Speci men Type: BLOOD SPECIMENOrdering Facility: [facility] Address: [address] Performed By: #### 5 0190-8, 2276-4 ####[facility] LABIA [id number] [place] [address] [place] Bacteria Ur Culton 3 Bacteria identified Cx Nom (U) ORGANISM ID: 1 10,000 -<50,000 CFU/ml Mixed microbiota Insignificant colony count. No further workup. Normal [facility] Comment on above: Performed By: #### 6 30-4 ####[facility] LABIA [id number] [place] [address] [place] Basic metabolic 2000 panelon 12-23-2022 Anion gap [Moles/Vol] 10 mmol/L Normal 9-18 [facility] Comment on above: Order Comment: Speci men Type: BLOOD SPECIMENOrdering Facility: [facility] Address: [address] [address] Performed By: #### 2 4321-2 ####[facility] LABIA [id number] [place] [address] [place] Calcium [Mass/Vol] 9.5 mg/dL Normal 8.5-10.2 [facility] Comment on above: Order Comment: Speci men Type: BLOOD SPECIMENOrdering Facility: [facility] Address: [address] Performed By: #### 2 4321-2 ####[facility] LABCLIA [id number] [place] [address] [place] Chloride [Moles/Vol] 99 mmol/L Normal 97-105 [facility] Comment on above: Order Comment: Speci men Type: BLOOD SPECIMENOrdering Facility: [facility] Address: [address] Performed By: #### 2 4321-2 ####[facility] LABCLIA [id number] [place] [address] [place] CO2 [Moles/Vol] 22 mmol/L Normal 22-30 [facility] Comment on above: Order Comment: Speci men Type: BLOOD SPECIMENOrdering Facility: [facility] Address: [address] [place] [address] Performed By: #### 2 4321-2 ####[facility] LABCLIA [id number] [place] [address] [place] Creatinine [Mass/Vol] 1.21 mg/dL High 0.58-0.96 [facility] Comment on above: Order Comment: Speci men Type: BLOOD SPECIMENOrdering Facility: [facility] Address: [address] [place] [address] Performed By: #### 2 4321-2 ####[facility] LABCLIA [id number] [address] STATES OF [facility] ESTIMATED GLOMERULAR FILTRATION RATE 47 mL/min/1.73m??? Low >=60 [facility] Comment on above: Order Comment: Speci men Type: BLOOD SPECIMENOrdering Facility: [facility] Address: [address] [place] [address] Result Comment: Karen mated Glomerular Filtration Rate [...] actual GFR. Performed By: #### 2 4321-2 ####[facility] LABCLIA [id number] [place] [address] [place] Glucose [Mass/Vol] 87 mg/dL Normal 74-99 [facility] Comment on above: Order Comment: Speci men Type: BLOOD SPECIMENOrdering Facility: [facility] Address: [address] [place] [address] Result Comment: The [place] Diabetes Association (ADA) provides guidance for cutoff [...] Standards of Medical Care in Diabetes 2016, [place] [employer]. Diabetes Care. 2016.39(Suppl 1). Performed By: #### 2 4321-2 ####[facility] LABCLIA [id number] [place] [address] [place] Potassium [Moles/Vol] 5.1 mmol/L Normal 3.7-5.1 [facility] Comment on above: Order Comment: Speci men Type: BLOOD SPECIMENOrdering Facility: [facility] Address: [address] [address] Performed By: #### 2 4321-2 ####[facility] LABIA [id number] [place] [address] [place] Sodium [Moles/Vol] 131 mmol/L Low 136-144 [facility] Comment on above: Order Comment: Speci men Type: BLOOD SPECIMENOrdering Facility: [facility] Address: [address] [address] Performed By: #### 2 4321-2 ####[facility] LABCLIA [id number] [place] [address] [place] Urea nitrogen [Mass/Vol] 19 mg/dL Normal 7-21 [facility] Comment on above: Order Comment: Speci men Type: BLOOD SPECIMENOrdering Facility: [facility] Address: [address] [address] Performed By: #### 2 4321-2 ####[facility] LABCLIA [id number] [place] [address] [place] CBC W Auto Differential pane l (Bld)on 12-23-2022 Basophils (Bld) [#/Vol] 10*3/uL Normal <0.11 C [facility] Comment on above: Order Comment: Speci men Type: BLOOD SPECIMENOrdering Facility: [facility] Address: [address] [place] [address] Performed By: #### 5 7021-8 ####[facility] LABCLIA [id number] [place] [address] [place] Basophils/100 WBC (Bld) 0.3 % Normal C [facility] Comment on above: Order Comment: Speci men Type: BLOOD SPECIMENOrdering Facility: [facility] Address: [address] [place] [address] Performed By: #### 5 7021-8 ####[facility] LABIA [id number] [place] [address] [place] Differential cell count method Nom (Bld) Auto Normal [facility] Comment on above: Order Comment: Speci men Type: BLOOD SPECIMENOrdering Facility: [facility] Address: [address] [place] [address] Performed By: #### 5 7021-8 ####[facility] LABIA [id number] [place] [address] [place] Eosinophils (Bld) [#/Vol] 10*3/uL Normal <0.46 [facility] Comment on above: Order Comment: Speci men Type: BLOOD SPECIMENOrdering Facility: [facility] Address: [address] [place], [place] [id number] Performed By: #### 5 7021-8 ####[facility] LABCLIA [id number] [place] [address] [place] Eosinophils/100 WBC (Bld) 0.0 % Normal [facility] Comment on above: Order Comment: Speci men Type: BLOOD SPECIMENOrdering Facility: [facility] Address: [address] Performed By: #### 5 7021-8 ####[facility] LABIA [id number] [place] [address] [place] Erythrocyte distribution width (RBC) [Ratio] 13.7 % Normal 11.5-15.0 [facility] Comment on above: Order Comment: Speci men Type: BLOOD SPECIMENOrdering Facility: [facility] Address: [address] [address] Performed By: #### 5 7021-8 ####[facility] LABIA [id number] [address] [place] Hematocrit (Bld) [Volume fraction] 30.6 % Low 36.0-46.0 [facility] Comment on above: Order Comment: Speci men Type: BLOOD SPECIMENOrdering Facility: [facility] Address: [address] [place], [place] [id number] Performed By: #### 5 7021-8 ####[facility] LABIA [id number] [address] [place] Hemoglobin (Bld) [Mass/Vol] 10.0 g/dL Low 11.5-15.5 [facility] Comment on above: Order Comment: Speci men Type: BLOOD SPECIMENOrdering Facility: [facility] Address: [address] Performed By: #### 5 7021-8 ####[facility] LABIA [id number] [place] [address] [place] Immature granulocytes (Bld) [#/Vol] 0.04 10*3/uL Normal <0.10 [facility] Comment on above: Order Comment: Speci men Type: BLOOD SPECIMENOrdering Facility: [facility] Address: [address] [place], [place] [address] Performed By: #### 5 7021-8 ####[facility] LABCLIA [id number] [address] [place] Immature granulocytes/100 WBC (Bld) 0.7 % Normal [facility] Comment on above: Order Comment: Speci men Type: BLOOD SPECIMENOrdering Facility: [facility] Address: [address] [place], [place] [id number] Performed By: #### 5 7021-8 ####[facility] LABCLIA [id number] [place] [address] [place] Lymphocytes (Bld) [#/Vol] 1.32 10*3/uL Normal 1.00-4.00 [facility] Comment on above: Order Comment: Speci men Type: BLOOD SPECIMENOrdering Facility: [facility] Address: [address] [place], [place] [address] Performed By: #### 5 7021-8 ####[facility] LABIA [id number] [address] [place] Lymphocytes/100 WBC (Bld) 22.0 % Normal [facility] Comment on above: Order Comment: Speci men Type: BLOOD SPECIMENOrdering Facility: [facility] Address: [address] [place], [place] [address] Performed By: #### 5 7021-8 ####[facility] LABIA [id number] [place] [address] [place] MCH (RBC) [Entitic mass] 33.7 pg Normal 26.0-34.0 [facility] Comment on above: Order Comment: Speci men Type: BLOOD SPECIMENOrdering Facility: [facility] Address: [address] [place], [place] [address] Performed By: #### 5 7021-8 ####[facility] LABIA [id number] [place] [address] [place] MCHC (RBC) [Mass/Vol] 32.7 g/dL Normal 30.5-36.0 [facility] Comment on above: Order Comment: Speci men Type: BLOOD SPECIMENOrdering Facility: [facility] Address: [address] [place], [place] [address] Performed By: #### 5 7021-8 ####[facility] LABCLIA [id number] [place] [address] [place] MCV (RBC) [Entitic vol] 103.0 fL High 80.0-100.0 C [facility] Comment on above: Order Comment: Speci men Type: BLOOD SPECIMENOrdering Facility: [facility] Address: [address] [place], [place] [address] Performed By: #### 5 7021-8 ####[facility] LABCLIA [id number] [place] [address] [place] Monocytes (Bld) [#/Vol] 0.45 10*3/uL Normal <0.87 [facility] Comment on above: Order Comment: Speci men Type: BLOOD SPECIMENOrdering Facility: [facility] Address: [address] [place], [place] [address] Performed By: #### 5 7021-8 ####[facility] LABCLIA [id number] [place] [address] [place] Monocytes/100 WBC (Bld) 7.5 % Normal C [facility] Comment on above: Order Comment: Speci men Type: BLOOD SPECIMENOrdering Facility: [facility] Address: [address] [place], [place] [address] Performed By: #### 5 7021-8 ####[facility] LABCLIA [id number] [place] [address] [place] Neutrophils (Bld) [#/Vol] 4.18 10*3/uL Normal 1.45-7.50 [facility] Comment on above: Order Comment: Speci men Type: BLOOD SPECIMENOrdering Facility: [facility] Address: [address] Performed By: #### 5 7021-8 ####[facility] LABCLIA [id number] [address] Neutrophils/100 WBC (Bld) 69.5 % Normal [facility] Comment on above: Order Comment: Speci men Type: BLOOD SPECIMENOrdering Facility: [facility] Address: [address] Performed By: #### 5 7021-8 ####[facility] LABCLIA [id number] [place] [address] [place] Nucleated RBC (Bld) [#/Vol] 10*3/uL Normal <0.01 [facility] Comment on above: Order Comment: Speci men Type: BLOOD SPECIMENOrdering Facility: [facility] Address: [address] Performed By: #### 5 7021-8 ####[facility] LABIA [id number] [place] [address] [place] Nucleated RBC/100 WBC (Bld) [Ratio] 0.0 /[address] [facility] Comment on above: Order Comment: Speci men Type: BLOOD SPECIMENOrdering Facility: [facility] Address: [address] [place], [place] [address] Performed By: #### 5 7021-8 ####[facility] LABCLIA [id number] [place] [address] [place] Platelet mean volume (Bld) [Entitic vol] 10.2 fL Normal 9.0-12.7 [facility] Comment on above: Order Comment: Speci men Type: BLOOD SPECIMENOrdering Facility: [facility] Address: [address] Performed By: #### 5 7021-8 ####[facility] LABCLIA [id number] [place] [address] [place] Platelets (Bld) [#/Vol] 205 10*3/uL Normal 150-400 [facility] Comment on above: Order Comment: Speci men Type: BLOOD SPECIMENOrdering Facility: [facility] Address: [address] [place] [address] Performed By: #### 5 7021-8 ####[facility] LABIA [id number] [place] [address] [place] RBC (Bld) [#/Vol] 2.97 10*6/uL Low 3.90-5.20 [facility] Comment on above: Order Comment: Speci men Type: BLOOD SPECIMENOrdering Facility: [facility] Address: [address] [place] [address] Performed By: #### 5 7021-8 ####[facility] LABIA [id number] [place] [address] [place] WBC (Bld) [#/Vol] 6.01 10*3/uL Normal 3.70-11.00 [facility] Comment on above: Order Comment: Speci men Type: BLOOD SPECIMENOrdering Facility: [facility] Address: [address] [place] [address] Performed By: #### 5 7021-8 ####[facility] [id number] [place] [address] [place] CNCOon 12-23-[address] [facility] CNOVon 12-23-2022 CNOV Office Visit (LOORRM ) -- KIKI MOORE ([id number]) 1945 F Date Time Provider Department 12/23/22 [...] . Surgery Details Date and Location: At [facility] on 01/17/23. Implants: Aida Robotic: Yes [...] Normal: No (more content not included)... Normal [facility] HISTORY PHYSICALon 3 HISTORY PHYSICAL HNO ID: [id number] Author: Rico Florian APRN.HYDROELECTRIC PLANT MAINTAINER Service: ? Author Type: Nurse Practitioner Type: [...] Back Pain Ra (Rheumatoid Arthritis) ([facility]) Arthritis of Left Hip Spondylolisthesis of Lumbar [...] Back pain Bursitis DVT of popliteal vein ([facility]) Glaucoma Hypertension OA (osteoarthritis) Obesity RA (rheumatoid arthritis) ([facility]) Rotator cuff syndrome Snoring Spinal stenosis, lumbar Stroke ([facility]) PAST SURGICAL HISTORY Procedure Laterality Date [...] residual deficit in 2016 No history of TIA's,PROPERTY PRESERVATION SPECIALIST tumor, impaired sensorium, hemiplegia, paraplegia or quadraplegia. [...] rest lance (more content not included)... Normal [facility] HbA1c (Bld)on 12-23-2022 Average glucose Estimated from glycated hemoglobin (Bld) [Mass/Vol] 114 mg/dL Normal [facility] Comment on above: Order Comment: Speci men Type: BLOOD SPECIMENOrdering Facility: [facility] Address: [address] [address] Result Comment: eAG: (Estimated average glucose) is a calculated value from HgbA1c and is corporate representative of the average blood glucose level in the last 2-3 month period. Performed By: #### 5 5454-3 ####[facility] LABCLIA [id number] [address] OF [facility] HbA1c (Bld) [Mass fraction] 5.6 % Normal 4.3-5.6 [facility] Comment on above: Order Comment: Tamiko marshall Type: BLOOD SPECIMENOrdering Facility: [facility] Address: [address] [place] [address] Result Comment: Amer [place] Diabetes Association guidelines indicate that patients with HgbA1c in the range 5.7-6.4% are at increased risk for development of diabetes, and intervention by lifestyle modification may be beneficial. HgbA1c greater or equal to 6.5% is considered diagnostic of diabetes. Performed By: #### 5 5454-3 ####[facility] LABCLIA [id number] [address] STATES OF [facility] TYPE AND SCREEN,30 DAYon ABO A Normal [facility] Comment on above: Order Comment: Natii rolando Type: BLOOD SPECIMENOrdering Facility: [facility] Address: [address] [place] [address] Performed By: #### T SCR30 ####[facility] BLOOD BANKCLIA [id number] [address] OF [facility] HISTORICAL AB SCR STATUS Positive Abnormal [facility] Comment on above: Order Comment: Natii men Type: BLOOD SPECIMENOrdering Facility: [facility] Address: [address] [place] [address] Performed By: #### T SCR30 ####[facility] BLOOD BANKIA [id number] [place] [address] [place] Rh Nom (Bld) Positive Normal [facility] Comment on above: Order Comment: Speci men Type: BLOOD SPECIMENOrdering Facility: [facility] Address: [address] Performed By: #### T SCR30 ####[facility] BLOOD [facility] [id number] [address] [place] Urinalysis complete panel (U )on 12-23-2022 Bilirubin Ql (U) Negative Normal Negative [facility] Comment on above: Order Comment: Speci men Type: URINE SPECIMENOrdering Facility: [facility] Address: [address] [address] Performed By: #### 2 4356-8 ####[facility] LABIA [id number] [address] [place] Clarity (Unsp spec) Clear Normal Clear [facility] Comment on above: Order Comment: Speci men Type: URINE SPECIMENOrdering Facility: [facility] Address: [address] Performed By: #### 2 4356-8 ####[facility] LABIA [id number] [address] [place] OF [facility] Color (U) Light Yellow Normal Yellow [facility] Comment on above: Order Comment: Speci men Type: URINE SPECIMENOrdering Facility: [facility] Address: [address] Performed By: #### 2 4356-8 ####[facility] LABCLIA [id number] [place] [address] [place] Glucose Test strip (U) [Mass/Vol] Negative Normal Trace, Negative [facility] Comment on above: Order Comment: Speci men Type: URINE SPECIMENOrdering Facility: [facility] Address: [address] [address] Performed By: #### 2 4356-8 ####[facility] LABCLIA [id number] [place] [address] [place] Hemoglobin Ql (U) Negative Normal Negative, Trace [facility] Comment on above: Order Comment: Speci men Type: URINE SPECIMENOrdering Facility: [facility] Address: [address] [address] Performed By: #### 2 4356-8 ####[facility] LABCLIA [id number] [place] [address] [place] Hyaline casts (Urine sed) [#/Area] 1-3 /LPF Abnormal 0 /LPF [facility] Comment on above: Order Comment: Speci men Type: URINE SPECIMENOrdering Facility: [facility] Address: [address] [place] [address] Performed By: #### 2 4356-8 ####[facility] LABCLIA [id number] [place] [address] [place] Ketones Ql (U) Negative Normal Trace, Negative [facility] Comment on above: Order Comment: Speci men Type: URINE SPECIMENOrdering Facility: [facility] Address: [address] [place], [place] [address] Performed By: #### 2 4356-8 ####[facility] LABCLIA [id number] [place] [address] [place] Leukocyte esterase Test strip Ql (U) 25 Jailyn/uL Normal Negative, 25 Jailyn/uL [facility] Comment on above: Order Comment: Speci men Type: URINE SPECIMENOrdering Facility: [facility] Address: [address] [place] [address] Performed By: #### 2 4356-8 ####[facility] LABCLIA [id number] [place] [address] [place] Nitrite Ql (U) Negative Normal Negative [facility] Comment on above: Order Comment: Speci men Type: URINE SPECIMENOrdering Facility: [facility] Address: [address] [place] [address] Performed By: #### 2 4356-8 ####[facility] LABIA [id number] [place] [address] [place] pH (U) 6.0 [pH] Normal 5.0-8.0 [facility] Comment on above: Order Comment: Speci men Type: URINE SPECIMENOrdering Facility: [facility] Address: [address] [place] [address] Performed By: #### 2 4356-8 ####[facility] LABIA [id number] [address] STATES [facility] Protein (U) [Mass/Vol] Negative Normal Trace , Negative [facility] Comment on above: Order Comment: Speci men Type: URINE SPECIMENOrdering Facility: [facility] Address: [address] [place] [address] Performed By: #### 2 4356-8 ####[facility] LABIA [id number] [place] [address] [place] RBC LM.HPF (Urine sed) [#/Area] 0-3 /HPF Normal 0-3 /HPF [facility] Comment on above: Order Comment: Speci men Type: URINE SPECIMENOrdering Facility: [facility] Address: [address] [place] [address] Performed By: #### 2 4356-8 ####[facility] LABIA [id number] [place] [address] [place] Specific gravity (U) [Rel density] 1.010 Normal 1.005-1.[address] [facility] Comment on above: Order Comment: Speci men Type: URINE SPECIMENOrdering Facility: [facility] Address: [address] [address] Performed By: #### 2 4356-8 ####[facility] LABIA [id number] [place] [address] [place] Urobilinogen Ql (U) Negative Normal Negative [facility] Comment on above: Order Comment: Speci men Type: URINE SPECIMENOrdering Facility: [facility] Address: [address] [place] [address] Performed By: #### 2 4356-8 ####[facility] LABIA [id number] [place] [address] [place] WBC LM.HPF (Urine sed) [#/Area] 0-5 /HPF Normal 0-5 /HPF [facility] Comment on above: Order Comment: Speci men Type: URINE SPECIMENOrdering Facility: [facility] Address: [address] [place] [address] Performed By: #### 2 4356-8 ####[facility] LABIA [id number] [place] [address] [place] PTH [place] 11-23-2022 Parathyrin.intact [Mass/Vol] 191 pg/mL High 15-65 [facility] Comment on above: Result Comment: Perf ormed at: [facility] [address] [id number] PhD Be Serra Performed By: #### 2 123382, 2466429, 23653416, 31880005, 6532182 #### [facility] [address] [place] [address] Auto Diffon 11-21-2022 Basophils/100 WBC (Bld) 0.5 % Normal 0.0-2.0 [facility] Comment on above: Order Comment: Order Added by Discern Expert. Performed By: #### 2 761435, 2349329, 21450668, 81025832, 1819872 #### [facility] [address] [place] [address] Basophils/Leukocytes Auto (Bld) [Pure # fraction] 0.0 E9/L Normal 0.0-0.2 [facility] Comment on above: Order Comment: Order Added by Discern Expert. Performed By: #### 2 693798, 0514070, 58086268, 74017414, 0135121 #### [facility] [address] [place] [address] Eosinophils/100 WBC (Bld) 0.2 % Normal 0.0-8.0 [facility] Comment on above: Order Comment: Order Added by Discern Expert. Performed By: #### 2 484507, 2912676, 46618770, 93220909, 1695859 #### [facility] [address] [place] [address] Eosinophils/Leukocytes Auto (Bld) [Pure # fraction] 0.0 E9/L Normal 0.0-0.5 [facility] Comment on above: Order Comment: Order Added by Discern Expert. Performed By: #### 2 030226, 6107208, 36907012, 10870713, 5857136 #### [facility] [address] [place] [address] Lymphocytes/100 WBC (Bld) 17.2 % Normal 14.0-50.0 [facility] Comment on above: Order Comment: Order Added by Discern Expert. Performed By: #### 2 646049, 2298339, 98853916, 14740765, 9508967 #### [facility] [address] [place] [address] Lymphocytes/Leukocytes Auto (Bld) [Pure # fraction] 0.9 E9/L Low 1.0-4.0 [facility] Comment on above: Order Comment: Order Added by Discern Expert. Performed By: #### 2 074722, 6974747, 64929968, 71328296, 5101110 #### [facility] [address] [place] [address] Monocytes/100 WBC (Bld) 7.1 % Normal 4.0-14.0 [facility] Comment on above: Order Comment: Order Added by Discern Expert. Performed By: #### 2 378369, 5428752, 47871074, 52508686, 7482105 #### [facility] [address] [place] [address] Monocytes/Leukocytes Auto (Bld) [Pure # fraction] 0.4 E9/L Normal 0.2-1.0 [facility] Comment on above: Order Comment: Order Added by Discern Expert. Performed By: #### 2 201102, 8582518, 37478311, 50314793, 0350651 #### [facility] [address] [place] [address] Neutrophils/100 WBC (Bld) 75.0 % Normal 36.0-75.0 [facility] Comment on above: Order Comment: Order Added by Discern Expert. Performed By: #### 2 911244, 4614939, 28429688, 67662360, 5622230 #### [facility] [address] [place] [address] Neutrophils/Leukocytes Auto (Bld) [Pure # fraction] 3.9 E9/L Normal 2.0-7.5 [facility] Comment on above: Order Comment: Order Added by Discern Expert. Performed By: #### 2 762699, 1294803, 70593897, 85508901, 9901870 #### [facility] [address] [place] [address] CBC w/ Auto Diffon 3 Erythrocyte distribution width (RBC) [Ratio] 14.4 % High 10.9-14.2 [facility] Comment on above: Performed By: #### 2 703542, 0722871, 58542204, 05801085, 7980465 #### [facility] [address] [place] [address] Hematocrit (Bld) [Volume fraction] 29.8 % Low 34.0-46.0 [facility] Comment on above: Performed By: #### 2 980960, 1970309, 71411848, 21435695, 5336722 #### [facility] [address] [place] [address] Hemoglobin (Bld) [Mass/Vol] 9.9 g/dL Low 12.0-16.0 [facility] Comment on above: Performed By: #### 2 410846, 9845792, 39734321, 86885731, 0421753 #### [facility] [address] [place] [address] MCH (RBC) [Entitic mass] 33.2 pg Normal 27.0-34.0 [facility] Comment on above: Performed By: #### 2 395958, 5173299, 39698149, 82475713, 7223497 #### [facility] [address] [place] [address] MCHC (RBC) [Mass/Vol] 33.2 g/dL Normal 31.4-36.0 [facility] Comment on above: Performed By: #### 2 461246, 1631815, 84932885, 98931320, 4774459 #### [facility] [address] [place] [address] MCV (RBC) [Entitic vol] 100.1 fL High 80.0-100.0 [facility] Comment on above: Performed By: #### 2 182860, 5191063, 60715051, 83160828, 4908423 #### [facility] [address] [place] [address] Platelet mean volume (Bld) [Entitic vol] 7.6 fL Normal 6.4-10.8 [facility] Comment on above: Performed By: #### 2 876019, 9382771, 04375586, 17503468, 7002457 #### [facility] [address] [place] [address] Platelets (Bld) [#/Vol] 227.0 E9/L Normal 150. 0-500. 0 [facility] Comment on above: Performed By: #### 2 036407, 8700406, 56096956, 67704001, 3869363 #### [facility] [address] [place] [address] RBC (Bld) [#/Vol] 3.0 E12/L Low 4.3-5.9 [facility] Comment on above: Performed By: #### 2 690124, 5807647, 65115480, 06864134, 0911274 #### [facility] [address] [place] [address] WBC corrected for nucl RBC Auto (Bld) [#/Vol] 5.2 E9/L Normal 4.0-11.0 [facility] Comment on above: Performed By: #### 2 881441, 9668331, 87630326, 78060190, 3681720 #### [facility] [address] [place] [address] CHEMISTRYOrdered By: SYSTEM SYSTEM on 11-21-2022 25-hydroxyvitamin [...] mg/dL Normal 1.9 - 4 .6 mg/dL [facility] Remisol Potassium [Moles/Vol] 5.3 mmol/L Normal 3.5 - 5.3 mmol/L [facility] Remisol Sodium [Moles/Vol] 132 mmol/L Low 135 - 145 mmol/L [facility] Remisol Urea nitrogen [Mass/Vol] 24 mg/dL High 5 - 21 mg/dL [facility] Remisol Urea nitrogen/Creatinine [Mass ratio] 20 mg/mg Normal 10 - 20 [facility] Remisol Consent for Treatmenton Consent for Treatment [id number]:127 Normal [facility] Hep Func Panelon 11-21-2022 Albumin [Mass/Vol] 4.0 g/dL Normal 3.3-5.0 [facility] Comment on above: Performed By: #### 2 897537, 9507119, 74905108, 39182282, 5281468 #### [facility] [address] [place] [address] Albumin/Globulin (S) [Mass conc ratio] 1.6 Normal 1.1-2.2 [facility] Comment on above: Performed By: #### 2 703168, 8600756, 31852388, 46041264, 2375000 #### [facility] [address] [place] [address] ALP [Catalytic activity/Vol] 106 Int._Unit/L High 21-98 [facility] Comment on above: Performed By: #### 2 868577, 8673373, 67699275, 36481676, 8426533 #### [facility] [address] [place] [address] ALT No additional P-5'-P [Catalytic activity/Vol] 23 Int._Unit/L Normal 6-46 [facility] Comment on above: Performed By: #### 2 616820, 7292661, 82483355, 93693145, 2696636 #### [facility] [address] [place] [address] AST [Catalytic activity/Vol] 33 Int._Unit/L Normal 5-43 [facility] Comment on above: Performed By: #### 2 428222, 6911184, 93375130, 79738661, 5425228 #### [facility] [address] [place] [address] Bilirubin [Mass/Vol] 0.6 mg/dL Normal 0.0-1.1 [facility] Comment on above: Performed By: #### 2 441259, 7426920, 65218180, 10225270, 5310625 #### [facility] [address] [place] [address] Bilirubin.direct [Mass/Vol] 0.2 mg/dL Normal 0.1-0.4 [facility] Comment on above: Performed By: #### 2 364977, 1609675, 93503264, 00836751, 0823399 #### [facility] [address] [place] [address] Bilirubin.indirect [Mass or moles/Vol] 0.4 mg/dL Normal 0.1-0.9 [facility] Comment on above: Performed By: #### 2 629773, 8936105, 38121251, 41098817, 5043575 #### [facility] [address] [place] [address] Globulin (S) [Mass/Vol] 2.5 g/dL Normal 1.4-4.0 [facility] Comment on above: Performed By: #### 2 010227, 8187935, 69304014, 39195461, 0776851 #### [facility] [address] [place] [address] Protein [Mass/Vol] 6.5 g/dL Normal 6.0-7.8 [facility] Comment on above: Performed By: #### 2 817801, 3302925, 45433545, 36197355, 3613832 #### [facility] [address] [place] [address] Physician Orderon 11-21-2022 Physician Order [id number]:127 Normal [facility] Renal Panelon 11-21-2022 Albumin [Mass/Vol] 4.0 g/dL Normal 3.3-5.0 [facility] Comment on above: Performed By: #### 1 9118567, 352723262, 87714722 #### [facility] [address] [place] [address] Anion gap [Moles/Vol] 13 mmol/L Normal 6-16 [facility] Comment on above: Performed By: #### 1 8249821, 313181558, 35747893 #### [facility] [address] [place] [address] Calcium [Mass/Vol] 9.3 mg/dL Normal 8.9-11.1 [facility] Comment on above: Performed By: #### 1 6748086, 919816903, 84900828 #### [facility] [address] [place] [address] Chloride [Moles/Vol] 100 mmol/L Low 101-111 [facility] Comment on above: Performed By: #### 1 0419458, 861447306, 20310994 #### [facility] [address] [place] [address] CO2 [Moles/Vol] 24 mmol/L Normal 21-31 [facility] Comment on above: Performed By: #### 1 3396418, 246275751, 59417127 #### [facility] [address] [place] [address] Creatinine [Mass/Vol] 1.2 mg/dL Normal 0.5-1.3 [facility] Comment on above: Performed By: #### 1 0570116, 766270564, 33010377 #### [facility] [address] [place] [address] Glucose [Mass/Vol] 110 mg/dL Normal 55-199 [facility] Comment on above: Result Comment: If t his glucose result represents a fasting glucose, interpretation should refer to the following reference range: 55-99 mg/dL Performed By: #### 1 8045565, 130127657, 08399018 #### [facility] [address] [place] [address] Phosphate [Mass/Vol] 3.7 mg/dL Normal 1.9-4.6 [facility] Comment on above: Performed By: #### 1 2486440, 088385632, 21195020 #### [facility] [address] [place] [address] Potassium [Moles/Vol] 5.3 mmol/L Normal 3.5-5.3 [facility] Comment on above: Performed By: #### 1 4562832, 897674451, 29434827 #### [facility] [address] [place] [address] Sodium [Moles/Vol] 132 mmol/L Low 135-145 [facility] Comment on above: Performed By: #### 1 2834916, 144420633, 75071854 #### [facility] [address] [place] [address] Urea nitrogen [Mass/Vol] 24 mg/dL High 5-21 [facility] Comment on above: Performed By: #### 1 5174431, 376945616, 52466406 #### [facility] [address] [place] [address] Urea nitrogen/Creatinine [Mass ratio] 20 No Units Normal 10-20 [facility] Comment on above: Performed By: #### 1 3531579, 019102845, 84502528 #### [facility] [address] [place] [address] Sed Rate Automatedon 11-21- 023 Sed Rate Automated 9 mm/hr Normal 0-34 [facility] Comment on above: Performed By: #### 2 423371, 3609557, 81754972, 08544478, 5193928 #### [facility] [address] [place] [address] Vitamin D 25 Hydroxyon 11-21 25-hydroxyvitamin D3 [Mass/Vol] 25.2 ng/mL Low 30.0-100.0 [facility] Comment on above: Result Comment: Vit khan D deficiency has been defined as a level of serum 25-OH vitamin D less than 20 ng/mL (1,2) by the [place] [employer] and an Endocrine Society practice guideline. The Endocrine Society further defined vitamin D insufficiency as a level between 21 and 29 ng/mL (2). 1. IOM ([place] [employer]). 2010. Dietary reference intakes for calcium and D. [place]: The National Academies Press. 2. Jennifer MF, Kaitlin SANDRA, Casey LINARES, et al. Evaluation, treatment, and prevention of vitamin D deficiency: an Endocrine Society clinical practice guideline. JCEM. 2010; 96 (7):1911-30. Performed By: #### 1 8632486, 094607932, 24030109 #### [facility] [address] [place] [address] eGFRon 11-21-2022 GFR/1.73 sq M.predicted among non-blacks MDRD (S/P/Bld) [Vol rate/Area] 47 mL/min/1.73 m2 Low >=59 [facility] Comment on above: Order Comment: Order added by Discern Expert. Result Comment: Photogrammetric Stereo Compiler lillian kidney disease could be indicated at eGFR's of less than 60 mL/min/1.73m2. Kidney failure is indicated at less than 15 mL/min/1.73m2. Performed By: #### 1 8744660, 178059804, 66417925 #### [facility] [address] [place] [address] [place] Mamm Screen w/CAD if perf and [...] very important to your health. The current [place] [employer] and National Comprehensive Cancer [...] Jose Pierre M.D. Transcribed by: CARLINE Technologist: [facility] Assessment: BI-RADS Category 2-Benign finding Recommendation: Normal interval follow-up Normal [facility] Consent for Treatmenton 10-21 Consent for Treatment [id number]#[id number]:127 Normal [facility] Office Visiton 11-09-2022 Follow-up visit [id number] Osorio Moore 1945 F Date Provider Department Center 11/09/2022 Malina-RICCO [facility] No family history on file Level of Service:29785 ND OFFICE/OUTPATIENT ESTABLISHED MOD MDM 30-39 MIN Reason for Visit and Comments: Follow-up [041535] - Yearly follow up Normal [facility] - Microbiology an d Antimicrobial susceptibilityon 10-27-2022 S. aureus and MRSA panel JIMBO+probe (Nose) Negative Negative [facility] CNOVon 10-26-2022 CNOV Office Visit (LOORRM ) -- KIKI MOORE ([id number]) 1945 F Date Time Provider Department 10/26/22 [...] - Fully Assessed Reason for Visit: New [423592] Primary Visit Diagnosis:MRSA (methicillin resistant Staphylococcus aureus) [A49.02] Other Visit Diagnoses:Primary osteoarthritis of left knee [M17.12] Pre-op testing [Z01.818] Status post right knee replacement [Z96.651] History of right hip replacement [Z96.641] Status post bilateral knee replacements [Z96.653] Rheumatoid arthritis with negative rheumatoid factor, involving unspecified site (HCC) [M06.00] Order(s):XR KNEE GENERAL 4V AP BOTH/PA BOTH/LAT/MERC BILATERAL [0459370] Order #: [id number] FUTURE STAPH AUREUS PCR [SQSAPCR] Order #: [id number] FUTURE STAPH AUREUS PCR [SQSAPCR] Order #: [id number]. #:[id number] URINALYSIS, WITH MICROSCOPIC [SQUAWMIC] Order #: [id number] FUTURE CBC + DIFF [SQCBCDIF] Order #: [id number] FUTURE BASIC METABOLIC PNL [SQBMP] Order #: [id number] FUTURE URINE CULTURE [SQURCUL] Order #: [id number] FUTURE TYPE AND SCREEN,30 DAY [KAFRNM24] Order #: [id number] FUTURE HGB A1C [SAVHN3H] Order #: [id number] FUTURE CONSULT TO(TCI)PRE-OP CLEAR [8788768] Order #: [id number]: 1 CONSULT TO PHYSICAL THERAPY [9099] Order #: [id number]: 1 FUTURE PATIENT PLACED ON ZOË TKA CARE PATH [1436735] Order #: [id number]: 1 SURGICAL REQUEST - ELECTIVE (12/2019) [7164419] Order #: [id number]: 1 Prescriptions as of 10/27/2022 - clindamycin [...] by SHAN BOX II on 10/27/[address] [facility] STAPH AUREUS PCRon S. aureus and MRSA panel JIMBO+probe (Nose) Normal Negative [facility] Comment on above: Order Comment: Speci men Type: SWAB OF INTERNAL NOSEOrdering Facility: [facility] Address: [address] [place] [address] Result Comment: Nega tive for Staphylococcus aureus by PCR. Negative for MRSA by PCR Performed By: #### S APCR ####[facility] LABCLIA [id number] [place] [address] [place] XR KNEE 4V [...] as described. Severe left lateral compartment osteoarthritis. Entry Level Staff Accountant: PSCB Transcribe Date/Time: Oct 26 2022 1:43P Dictated by : SHAN ANDRADE MD This examination was interpreted and the report reviewed and electronically signed by: SHAN ANDRADE MD on Oct 26 2022 1:45PM EST [id number] Normal [facility] XR KNEE GENERAL 4V AP BOTH/P A BOTH/LAT/MERC BILATERALon 10-26-2022 [facility] Insurance Correspondence Off iceon 10-11-2022 Insurance Correspondence Office [id number]:127 Normal [facility] Auto Diffon 07-25-2022 Basophils/100 WBC (Bld) 0.8 % Normal 0.0-2.0 [facility] Comment on above: Order Comment: Order Added by Discern Expert. Performed By: #### 2 100104, 5216159, 67069312, 07150708, 4363335, 8571576 #### [facility] [address] [place] [address] Basophils/Leukocytes Auto (Bld) [Pure # fraction] 0.0 E9/L Normal 0.0-0.2 [facility] Comment on above: Order Comment: Order Added by Discern Expert. Performed By: #### 2 374662, 6970654, 03477983, 85016196, 9281444, 0934798 #### [facility] [address] [place] [address] Eosinophils/100 WBC (Bld) 1.4 % Normal 0.0-8.0 [facility] Comment on above: Order Comment: Order Added by Discern Expert. Performed By: #### 2 988601, 8099527, 75265352, 63099998, 7521150, 9861988 #### [facility] [address] [place] [address] Eosinophils/Leukocytes Auto (Bld) [Pure # fraction] 0.1 E9/L Normal 0.0-0.5 [facility] Comment on above: Order Comment: Order Added by Discern Expert. Performed By: #### 2 332439, 3364322, 40028754, 19774513, 4392795, 1274029 #### [facility] [address] [place] [address] Lymphocytes/100 WBC (Bld) 33.5 % Normal 14.0-50.0 [facility] Comment on above: Order Comment: Order Added by Joaquim Expert. Performed By: #### 2 450033, 3139522, 47206609, 02946559, 2841855, 0605927 #### [facility] [address] [place] [address] Lymphocytes/Leukocytes Auto (Bld) [Pure # fraction] 1.9 E9/L Normal 1.0-4.0 [facility] Comment on above: Order Comment: Order Added by Joaquim Expert. Performed By: #### 2 082920, 8343511, 49308416, 44731679, 9287516, 0084858 #### [facility] [address] [place] [address] Monocytes/100 WBC (Bld) 13.9 % Normal 4.0-14.0 [facility] Comment on above: Order Comment: Order Added by Joaquim Expert. Performed By: #### 2 565254, 9122336, 90400200, 31559991, 1140637, 4432355 #### [facility] [address] [place] [address] Monocytes/Leukocytes Auto (Bld) [Pure # fraction] 0.8 E9/L Normal 0.2-1.0 [facility] Comment on above: Order Comment: Order Added by Joaquim Expert. Performed By: #### 2 559712, 6518045, 05524882, 26484341, 4157022, 8343444 #### [facility] [address] [place] [address] Neutrophils/100 WBC (Bld) 50.4 % Normal 36.0-75.0 [facility] Comment on above: Order Comment: Order Added by Discern Expert. Performed By: #### 2 997938, 4970037, 25057250, 01930257, 7102078, 2568789 #### [facility] [address] [place] [address] Neutrophils/Leukocytes Auto (Bld) [Pure # fraction] 2.9 E9/L Normal 2.0-7.5 [facility] Comment on above: Order Comment: Order Added by Discern Expert. Performed By: #### 2 003752, 6215585, 52485720, 54106752, 4081765, 9874946 #### [facility] [address] [place] [address] CBC w/ Auto Diffon 3 Erythrocyte distribution width (RBC) [Ratio] 15.4 % High 10.9-14.2 [facility] Comment on above: Performed By: #### 2 598261, 7252001, 37767073, 50799338, 1791828, 9539757 #### [facility] [address] [place] [address] Hematocrit (Bld) [Volume fraction] 32.9 % Low 34.0-46.0 [facility] Comment on above: Performed By: #### 2 447459, 2998014, 83773434, 42963488, 7191746, 5021644 #### [facility] [address] [place] [address] Hemoglobin (Bld) [Mass/Vol] 10.6 g/dL Low 12.0-16.0 [facility] Comment on above: Performed By: #### 2 463928, 3803165, 78098651, 87668505, 1818804, 4812463 #### [facility] [address] [place] [address] MCH (RBC) [Entitic mass] 32.5 pg Normal 27.0-34.0 [facility] Comment on above: Performed By: #### 2 281212, 1104815, 65850813, 47004575, 0902708, 6373402 #### [facility] [address] [place] [address] MCHC (RBC) [Mass/Vol] 32.3 g/dL Normal 31.4-36.0 [facility] Comment on above: Performed By: #### 2 320931, 8361931, 50823939, 97072958, 6726067, 1217745 #### [facility] [address] [place], [place] [address] MCV (RBC) [Entitic vol] 100.7 fL High 80.0-100.0 [facility] Comment on above: Performed By: #### 2 189138, 5254565, 76028745, 47915439, 7158469, 4320848 #### [facility] [address] [place] [address] Platelet mean volume (Bld) [Entitic vol] 7.9 fL Normal 6.4-10.8 [facility] Comment on above: Performed By: #### 2 137901, 8001162, 99106106, 59540706, 1479224, 4417924 #### [facility] [address] [place], [place] [address] Platelets (Bld) [#/Vol] 224.0 E9/L Normal 150. 0-500. 0 [facility] Comment on above: Performed By: #### 2 762057, 4644467, 20653244, 63448935, 5230806, 1302788 #### [facility] [address] [place] [address] RBC (Bld) [#/Vol] 3.3 E12/L Low 4.3-5.9 [facility] Comment on above: Performed By: #### 2 908672, 9328918, 71389027, 36810945, 3519520, 7827468 #### [facility] [address] [place] [address] WBC corrected for nucl RBC Auto (Bld) [#/Vol] 5.7 E9/L Normal 4.0-11.0 [facility] Comment on above: Performed By: #### 2 298386, 5158962, 40487485, 79769622, 5709033, 0193679 #### [facility] [address] [place] [address] CHEMISTRYOrdered By: SYSTEM SYSTEM on 07-25-2022 Albumin [...] 07-25-2022 Creatinine [Mass/Vol] 1.1 mg/dL Normal 0.5-1.3 [facility] Comment on above: Performed By: #### 2 028040, 1961883, 96090127, 09346931, 4264365 #### [facility] [address] [place] [address] HEMATOLOGYOrdered By: SYSTEM SYSTEM on 07-25-2022 Basophils/100 [...] 7.9 fL Normal 6.4 - 10.8 fL [facility] HemeAutoSS Platelets (Bld) [#/Vol] 224.0 E9/L Normal 150. 0 - 500.0 E9/L [facility] RBC (Bld) [#/Vol] 3.3 E12/L Low 4.3 - 5.9 E12/L [facility] Sed Rate Automated 14 mm/h Normal 0 - 34 mm/hr [facility] WBC corrected for nucl RBC Auto (Bld) [#/Vol] 5.7 E9/L Normal 4.0 - 11.0 E9/L [facility] Hep Func Panelon 07-25-2022 Albumin [Mass/Vol] 4.1 g/dL Normal 3.3-5.0 [facility] Comment on above: Performed By: #### 2 967522, 5606128, 83860790, 48697453, 2785826 #### [facility] [address] [place] [address] Albumin/Globulin (S) [Mass conc ratio] 1.5 Normal 1.1-2.2 [facility] Comment on above: Performed By: #### 2 942905, 1238636, 60529939, 66574754, 4886578 #### [facility] [address] [place] [address] ALP [Catalytic activity/Vol] 150 Int._Unit/L High 21-98 [facility] Comment on above: Performed By: #### 2 087253, 7220982, 73139531, 66115606, 4063373 #### [facility] [address] [place] [address] ALT No additional P-5'-P [Catalytic activity/Vol] 23 Int._Unit/L Normal 6-46 [facility] Comment on above: Performed By: #### 2 363168, 2925132, 26745503, 91310186, 2978541 #### [facility] [address] [place] [address] AST [Catalytic activity/Vol] 31 Int._Unit/L Normal 5-43 [facility] Comment on above: Performed By: #### 2 176192, 1675335, 83460243, 29751154, 3068196 #### [facility] [address] [place] [address] Bilirubin [Mass/Vol] 0.7 mg/dL Normal 0.0-1.1 [facility] Comment on above: Performed By: #### 2 140074, 0799640, 30265396, 02273991, 8695849 #### [facility] [address] [place] [address] Bilirubin.direct [Mass/Vol] 0.1 mg/dL Normal 0.1-0.4 [facility] Comment on above: Performed By: #### 2 162534, 8164003, 62694473, 89992375, 0319603 #### [facility] [address] [place] [address] Bilirubin.indirect [Mass or moles/Vol] 0.6 mg/dL Normal 0.1-0.9 [facility] Comment on above: Performed By: #### 2 984825, 1760711, 82646271, 95245977, 0132564 #### [facility] [address] [place] [address] [place] [address] Globulin (S) [Mass/Vol] 2.8 g/dL Normal 1.4-4.0 [facility] Comment on above: Performed By: #### 2 044281, 2866188, 06847476, 94643792, 1191718 #### [facility] [address] [place] [address] Protein [Mass/Vol] 6.9 g/dL Normal 6.0-7.8 [facility] Comment on above: Performed By: #### 2 372848, 8550437, 79624059, 87947446, 0212340 #### [facility] [address] [place] [address] Sed Rate Automatedon 023 Sed Rate Automated 14 mm/hr Normal 0-34 [facility] Comment on above: Performed By: #### 2 692012, 7811036, 07115880, 22167749, 1930370 #### [facility] [address] [place] [address] eGFRon 07-25-2022 GFR/1.73 sq M.predicted among blacks MDRD (S/P/Bld) [Vol rate/Area] 59 mL/min/1.73 m2 Normal >=59 [facility] Comment on above: Order Comment: Order added by Discern Expert. Result Comment: eGFR is race adjusted. AA=. Performed By: #### 2 518691, 3541231, 56151697, 24399772, 8400921 #### [facility] [address] [place] [address] GFR/1.73 sq M.predicted among non-blacks MDRD (S/P/Bld) [Vol rate/Area] 48 mL/min/1.73 m2 Low >=59 [facility] Comment on above: Order Comment: Order added by Discern Expert. Result Comment: Photogrammetric Stereo Compiler lillian kidney disease could be indicated at eGFR's of less than 60 mL/min/1.73m2. Kidney failure is indicated at less than 15 mL/min/1.73m2. Performed By: #### 2 418760, 4139327, 85061640, 60348549, 4265405 #### [facility] [address] [id number] CHEMISTRYOrdered By: SYSTEM SYSTEM on 06-28-2022 25-hydroxyvitamin [...] mmol/L Low 135 - 145 mmol/L [facility] Urea nitrogen [Mass/Vol] 19 mg/dL Normal 5 - 21 mg/dL [facility] Urea nitrogen/Creatinine [Mass ratio] 19 mg/mg Normal 10 - 20 [facility] Remisol CHEMISTRYOrdered By: Divine Schafer on 06-28-2022 Creatine (U) [Moles/Vol] 54.2 mg/dL Normal >=10.0mg/d L [facility] Creatinine (24H U) [Moles/Time] 880.8 mg/24hr Low 1000.0 - 2000.0 mg/24hr [facility] Chem S Hrs Amisha 24 h Invalid Interpretation Code [facility] Chem S Sodium (24H U) [Mass/Vol] 133 mmol/24 hr Normal 40 - 220 mmol/24 hr [facility] Chem S Sodium (U) [Moles/Vol] 82 mmol/L Normal >=10mmol/L [facility] - Specimen inform ationOrdered By: Yamileth Murray on 06-28-2022 Specimen volume Unsp time (U) 1625 mL Invalid Interpretation Code [facility] Testing Ordered By: Yamileth Murray on 06-28-2022 Hrs Amisha Ref Lab 24 h Invalid Interpretation Code [facility] Testing Ordered By: Jenny Solorzano on 06-28-2022 Test Code 748461 Invalid Interpretation Code [facility] Test Name n-telo, urine Invalid Interpretation Code [facility] CHEMISTRYOrdered By: SYSTEM SYSTEM on 06-02-2022 Albumin [Mass/Vol] 4.1 g/dL Normal 3.3 - 5.0 gm/dL [facility] Albumin/Globulin [Mass ratio] 1.3 {ratio} Normal 1.1 - 2.2 [facility] Remiso ALP [Catalytic activity/Vol] 144 [iU]/d High 21 - 98 Int._Unit/ L [facility] Remisol ALT No additional P-5'-P [Catalytic activity/Vol] 28 [iU]/d Normal 6 - 46 Int._Unit/ L [facility] Remisol Anion gap [Moles/Vol] 13 mmol/L Normal 6 - 16 mEq/L [facility] Remisol AST [Catalytic activity/Vol] 42 [iU]/d Normal 5 - 43 Int._Unit/ L [facility] Remisol Bilirubin [Mass/Vol] 0.8 mg/dL Normal 0.0 [...] rate/Area] mL/min/1.73 m2 Normal >=59mL/min /1.73 m2 [facility] Chem S GFR/1.73 sq M.predicted among non-blacks MDRD (S/P/Bld) [Vol rate/Area] 54 mL/min/1.73 m2 Low >=59mL/min /1.73 m2 [facility] Chem S Globulin (S) [...] mmol/L Normal 101 - 1 11 mmol/L [facility] Remisol CO2 [Moles/Vol] 21 mmol/L Normal 21 [...] 14.2 E9/L High 4.0 - 11.0 E9/L [facility] HemeAutoSS Laboratory - Microbiology an d Antimicrobial susceptibilityOrdered By: Dinorah Salgado on 05-17-2022 MRSA DNA JIMBO+probe Ql (Unsp spec) MRSA Negative. [facility] CHEMISTRYOrdered By: SYSTEM SYSTEM on 05-16-2022 [...] rate/Area] mL/min/1.73 m2 Normal >=59mL/min /1.73 m2 [facility] Chem S GFR/1.73 sq M.predicted among non-blacks MDRD (S/P/Bld) [Vol rate/Area] 54 mL/min/1.73 m2 Low >=59mL/min /1.73 m2 [facility] [place] Chem S Glucose [Mass/Vol] [...] Nom (U) 200 cfu/ml Mixed skin contaminants [facility] Reference Laboratory Testing Ordered By: Rick DomainUsebrenda on 05-15-2022 Cortisol [Mass/Vol] 35.5 ug/dL Invalid Interpretation Code [facility] [place] SendOutsSS Comment on above: Result Comment: Harvinder isol AM 6.2 - 19.4 Cortisol PM 2.3 - 11.9 Performed at: [facility] [address] [id number] PhD Be Serra URINALYSISOrdered By: Lucy Coon [...] PM) Normal Negative [facility] UA Auto SS Ney.plasma/Ney. RBC (Bld) [Mass ratio] 0-3 /HPF Normal [...] FT UA Auto SS Urobilinogen Qn (U) [id number] {Lily'U}/dL Normal 0.0 - 1.0 EU/dL [facility] UA Auto SS WBC Auto Ql (U) 2+ *ABN* (05/15/22 5:10 PM) Invalid Interpretation Code Negative [facility] UA Auto SS WBC LM.HPF (Urine sed) [#/Area] 6-15 /HPF Invalid Interpretation Code 0-5/HPF [facility] UA Auto SS MICRO OTHER TESTSOrdered By: Zafar Cheung on 05-14-2022 Rapid COV Int NEG Ctl Pass (05/14/22 8:33 PM) Normal [facility] [place] Man Sero Rapid COV Int POS Ctl Pass (05/14/22 8:33 PM) Normal [facility] [place] Man Sero SARS-CoV+SARS-CoV-2 (COVID-19) Ag IA.rapid Ql (Resp) Not Detected (05/14/22 8:33 PM) Normal Not Detected [facility] [place] Man Sero No Panel InformationOrdered By: ANGPROCESSSERVER MICROBIOLOGY on 05-14-2022 Blood Culture Charcoal No growth at 3 da ys. Final to follow at 7 days. [facility] Blood Culture Charcoal No growth at 3 da ys. Final to follow at 7 days. [facility] Alkaline Phosphatase Isoenzy nelly 04-27-2022 ALP [Catalytic activity/Vol] 178 U/L High 44-121 [facility] Comment on above: Order Comment: FASTI NG: N Performed By: #### H APT, RETIC #### [address] Bone Fraction 60 % Normal 14-68 [facility] Comment on above: Order Comment: FASTI NG: N Performed By: #### H APT, RETIC #### [address] Intestinal Fraction 1 % Normal 0-18 [facility] Comment on above: Order Comment: FASTI NG: N Result Comment: Perf ormed at: - [facility] [address] [id number] [employer] Log[employer] Operator: Ponce Lr PhD, Phone: [phone] PERFORMED BY: [place] [address] PATHOLOGIST HEAD FILTER PRESS TENDER KWADWO PULIDO M.D. Performed By: #### H APT, RETIC #### [address] Liver Fraction 39 % Normal 18-85 [facility] Comment on above: Order Comment: FASTI NG: N Performed By: #### H APT, RETIC #### [address] Basic Metabolic Panelon Estimated GFR ( Edwin > 60 Normal [facility] Comment on above: Result Comment: GFR estimated reference range: According to KDOQI guidelines, <60 ml/min/1.73m2 is sufficient to diagnose a patient with chronic kidney disease. Performed By: #### M G, PHOS, TSH3, BMP, PTH #### [facility] [address] [place] [address] [place] #### ALK PHOSIS #### [facility] , Estimated GFR (Non- Am 54 Normal [facility] Comment on above: Performed By: #### M G, PHOS, TSH3, BMP, PTH #### [facility] [address] [place] [address] [place] #### ALK PHOSIS #### [facility] , Estimated glomerular filtrat ion rate (GFR) non- AmericanOrdered By: Leonel Aguirre on 04-27-2022 GFR/1.73 sq M.predicted among non-blacks MDRD (S/P/Bld) [Vol rate/Area] 54 mL/Min [facility] MagnesiumOrdered By: Leonel Aguirre on 04-27-2022 Magnesium [Mass/Vol] 1.7 mg/dL Normal 1.6-2.6 [facility] Comment on above: Performed By: #### M G, PHOS, TSH3, BMP, PTH #### [facility] [address] [place] [address] [place] #### ALK PHOSIS #### [facility] , No Panel InformationOrdered By: Leonel Aguirre on 04-27-2022 Estimated GFR () > 60 mL/Min [facility] Comment on above: GFR estimated refere nce range: According to KDOQI guidelines, <60 ml/min/1.73m2 is sufficient to diagnose a patient with chronic kidney disease. Pharmacy Creatinine Clearance (Chem N/A [facility] Parathyroid Hormone Intacton 04-27-2022 Parathyroid Hormone Intact 244.8 pg/mL High [facility] Comment on above: Result Comment: PERF ORMED BY: [place] [address] PATHOLOGIST HEAD FILTER PRESS TENDER KWADWO PULIDO M.D. Performed By: #### H APT, RETIC #### [address] Phosphate [Mass/volume] in S shanti or PlasmaOrdered By: Leonel Aguirre on 04-27-2022 Phosphate [Mass/Vol] 4.3 mg/dL Normal 2.5-4.6 [facility] Comment on above: Performed By: #### M G, PHOS, TSH3, BMP, PTH #### [address] #### ALK PHOSIS #### [facility] , Serum or plasma anion gap de terminationOrdered By: Leonel Aguirre on 04-27-2022 Anion gap [Moles/Vol] 14.6 mmol/L Normal 6.0-15.0 [facility] Comment on above: Performed By: #### M G, PHOS, TSH3, BMP, PTH #### [address] #### ALK PHOSIS #### [facility] , Serum or plasma calcium zuleyma urement (mass/volume)Ordered By: Leonel Aguirre on 04-27-2022 Calcium [Mass/Vol] 9.2 mg/dL Normal 8.2-10.2 [facility] Comment on above: Performed By: #### M G, PHOS, TSH3, BMP, PTH #### [address] #### ALK PHOSIS #### [facility] , Serum or plasma chloride niko surement (moles/volume)Ordered By: Leonel Aguirre on 04-27-2022 Chloride [Moles/Vol] 98 mmol/L Normal 95-114 [facility] Comment on above: Performed By: #### M G, PHOS, TSH3, BMP, PTH #### [place] [address] [place] #### ALK PHOSIS #### [facility] , Serum or plasma creatinine m easurement with calculation of estimated glomerular filtrOrdered By: Leonel Aguirre on 04-27-2022 Creatinine [Mass/Vol] 1.00 mg/dL Normal 0.44-1.03 [facility] Comment on above: Performed By: #### M G, PHOS, TSH3, BMP, PTH #### [place] [address] [place] #### ALK PHOSIS #### [facility] , Serum or plasma glucose zuleyma urement (mass/volume)Ordered By: Leonel Aguirre on 04-27-2022 Glucose [Mass/Vol] 102 mg/dL High 70-100 [facility] Comment on above: ADA recommended refe rence rangeRandom Glucose Reference Range is dependent on time and content of last meal. Glucose of more than 200 mg/dL in a nonstressed, ambulatory subject supports the diagnosis of Diabetes Mellitus. Result Comment: [place] om Glucose Reference Range is dependent on time and content of last meal. Glucose of more than 200 mg/dL in a nonstressed, ambulatory subject supports the diagnosis of Diabetes Mellitus. ADA recommended reference range Performed By: #### M G, PHOS, TSH3, BMP, PTH #### [place] [address] [place] #### ALK PHOSIS #### [facility] , Serum or plasma intact parat hyroid hormone measurement (mass/volume)Ordered By: Leonel Aguirre on 04-27-2022 Parathyrin.intact [Mass/Vol] 244.8 pg/mL [facility] Serum or plasma potassium me asurement (moles/volume)Ordered By: Leonel Aguirre on 04-27-2022 Potassium [Moles/Vol] 5.0 mmol/L Normal 3.5-5.1 [facility] Comment on above: Performed By: #### M G, PHOS, TSH3, BMP, PTH #### [place] [address] [place] #### ALK PHOSIS #### [facility] , Serum or plasma sodium measu rement (moles/volume)Ordered By: Leonel Aguirre on 04-27-2022 Sodium [Moles/Vol] 130 mmol/L Low 136-146 [facility] Comment on above: Performed By: #### M G, PHOS, TSH3, BMP, PTH #### [place] [address] [place] #### ALK PHOSIS #### [facility] , Serum or plasma thyroid stim ulating hormone (TSH) measurement by high sensitivity metOrdered By: Leonel Aguirre on 04-27-2022 TSH Qn 0.85 m[IU]/L Normal 0.45-5.33 [facility] Comment on above: Performed By: #### M G, PHOS, TSH3, BMP, PTH #### [place] [address] [place] #### ALK PHOSIS #### [facility] , Serum or plasma total carbon dioxide measurement (moles/volume)Ordered By: Leonel Aguirre on 04-27-2022 CO2 [Moles/Vol] 22.4 mmol/L Normal 22.0-30.0 [facility] Comment on above: Performed By: #### M G, PHOS, TSH3, BMP, PTH #### [facility] [address] [place] [address] [place] #### ALK PHOSIS #### [facility] , Serum or plasma urea nitroge n measurement (mass/volume)Ordered By: Leonel Aguirre on 04-27-2022 Urea nitrogen [Mass/Vol] 17 mg/dL Normal 9-23 [facility] Comment on above: Performed By: #### M G, PHOS, TSH3, BMP, PTH #### [place] [address] [place] #### ALK PHOSIS #### [facility] , CHEMISTRYOrdered By: SYSTEM SYSTEM on 04-22-2022 Cobalamin (Vitamin B12) [Mass/Vol] 478 pg/mL Normal 50 - 1500 pg/mL [facility] Remisol Laboratory - Chemistry and C hemistry - challengeOrdered By: [employer] SYSTEM on 04-22-2022 Albumin [Mass/Vol] 4.0 g/dL [...] 44 mL/min/1.73 m2 Low >=59mL/min /1.73 m2 [facility] [place] Chem S Globulin (S) [Mass/Vol] 2.7 g/dL [...] 4.0 E9/L Normal 4.0 - 11.0 E9/L [facility] [place] HemeAutoSS No Panel InformationOrdered By: Radha Aldridge on 01-28-2022 Sed Rate Automated 9 mm/h Normal 0 - 34 mm/hr [facility] [place] HemeAutoSS Albumin [Mass/volume] in Ser um or PlasmaOrdered By: Leonel Aguirre on 12-23-2021 Albumin [Mass/Vol] 4.0 g/dL 3.2-5.5 [facility] Basophils Auto (Bld) [#/Vol] Ordered By: Leonel Aguirre on 12-23-2021 Basophils (Bld) [#/Vol] 0.0 10*3/uL 0.0-0.2 [facility] Basophils/100 WBC Auto (Bld) Ordered By: Leonel Aguirre on 12-23-2021 Basophils/100 WBC (Bld) 0.2 % . [facility] Blood hemoglobin measurement (mass/volume)Ordered By: Leonel Aguirre on 12-23-2021 Hemoglobin (Bld) [Mass/Vol] 9.8 g/dL 11.8-15.4 [facility] Blood leukocytes automated c ount (number/volume)Ordered By: Leonel Aguirre on 12-23-2021 WBC (Bld) [#/Vol] 4.3 10*3/uL 4.5-11.0 [facility] C reactive protein [Mass/vol ume] in Serum or PlasmaOrdered By: Leonel Aguirre on 12-23-2021 CRP [Mass/Vol] < 0.5 mg/dL 0.0-1.0 [facility] Creatinine and Glomerular fi ltration rate.predicted panel (S/P/Bld)Ordered By: Leonel Aguirre on 12-23-2021 Creatinine [Mass/Vol] 1.13 mg/dL 0.44-1.03 [facility] Eosinophils Auto (Bld) [#/Vo l]Ordered By: Leonel Aguirre on 12-23-2021 Eosinophils (Bld) [#/Vol] 0.0 10*3/uL 0.0-0.45 [facility] Eosinophils/100 WBC Auto (Bl d)Ordered By: Leonel Aguirre on 12-23-2021 Eosinophils/100 WBC (Bld) 0.0 % . [facility] Erythrocyte distribution wid th Auto (RBC) [Ratio]Ordered By: Leonel Aguirre on 12-23-2021 Erythrocyte distribution width (RBC) [Ratio] 14.7 % 11.9-15.3 [facility] Erythrocyte sedimentation ra te by Photometric methodOrdered By: Leonel Aguirre on 12-23-2021 ESR Photometric method (Bld) [Velocity] 2 mm/hr 0-29 [facility] Estimated glomerular filtrat ion rate (GFR) non- AmericanOrdered By: Leonel Aguirre on 12-23-2021 GFR/1.73 sq M.predicted among non-blacks MDRD (S/P/Bld) [Vol rate/Area] 47 mL/Min [facility] Globulin Calc (S) [Mass/Vol] Ordered By: Leonel Aguirre on 12-23-2021 Globulin (S) [Mass/Vol] 1.8 g/dL F [facility] Hematocrit Auto (Bld) [Volum e fraction]Ordered By: Leonel Aguirre on 12-23-2021 Hematocrit (Bld) [Volume fraction] 29.8 % 34.0-46.4 [facility] Hepatitis B virus surface Ag [Presence] in Serum or Plasma by ImmunoassayOrdered By: Leonel Aguirre on 12-23-2021 HBV surface Ag IA Ql Negative Negative [facility] Laboratory - Hematology and Cell countsOrdered By: Leonel Aguirre on 12-23-2021 Nucleated RBC/100 WBC (Bld) [Ratio] 0.1 % 0-0.5 [facility] Lymphocytes Auto (Bld) [#/Vo l]Ordered By: Leonel Aguirre on 12-23-2021 Lymphocytes (Bld) [#/Vol] 0.5 10*3/uL 1.00-4.8 [facility] Lymphocytes/100 WBC Auto (Bl d)Ordered By: Leonel Aguirre on 12-23-2021 Lymphocytes/100 WBC (Bld) 12.2 % . [facility] MCH Auto (RBC) [Entitic mass ]Ordered By: Leonel Aguirre on 12-23-2021 MCH (RBC) [Entitic mass] 34.1 pg 24.7-34.3 [facility] MCHC Auto (RBC) [Mass/Vol]Or dered By: Leonel Aguirre on 12-23-2021 MCHC (RBC) [Mass/Vol] 32.9 g/dL 32.0-35.0 [facility]ir [facility] MCV Auto (RBC) [Entitic vol] Ordered By: Leonel Aguirre on 12-23-2021 MCV (RBC) [Entitic vol] 103.7 fL 80-100 F [facility] Monocytes Auto (Bld) [#/Vol] Ordered By: Leonel Aguirre on 12-23-2021 Monocytes (Bld) [#/Vol] 0.2 10*3/uL 0.0-0.8 [facility] Monocytes/100 WBC Auto (Bld) Ordered By: Leonel Aguirre on 12-23-2021 Monocytes/100 WBC (Bld) 4.4 % . F [facility] Neutrophils Auto (Bld) [#/Vo l]Ordered By: Leonel Aguirre on 12-23-2021 Neutrophils (Bld) [#/Vol] 3.6 10*3/uL 1.8-7.7 [facility] Neutrophils/100 WBC Auto (Bl d)Ordered By: Leonel Aguirre on 12-23-2021 Neutrophils/100 WBC (Bld) 83.2 % . [facility] No Panel InformationOrdered By: Leonel Aguirre on 12-23-2021 Estimated GFR () 57 mL/Min [facility] Comment on above: GFR estimated refere nce range: According to KDOQI guidelines, <60 ml/min/1.73m2 is sufficient to diagnose a patient with chronic kidney disease. Hepatitis B Core Total Antibody Negative Negative [facility] Comment on above: Performed at: [address] [id number] [employer] Log[employer] Operator: Ponce Lr PhD, Phone: [phone] Hepatitis C Interpretation See comment . [facility] Comment on above: Negative Not infected with HCV, unless recent infection is suspected or other evidence exists to indicate HCV infection. Hepatitis C RNA Quantitative N/A [facility] Pharmacy Creatinine Clearance (Chem N/A [facility] Platelet mean volume Auto (B ld) [Entitic vol]Ordered By: Leonel Aguirre on 12-23-2021 Platelet mean volume (Bld) [Entitic vol] 8.5 fL 6.3-10.7 [facility] Platelets Auto (Bld) [#/Vol] Ordered By: Leonel Aguirre on 12-23-2021 Platelets (Bld) [#/Vol] 139 10*3/uL 150-450 [facility] Protein [Mass/volume] in Ser um or PlasmaOrdered By: Leonel Aguirre on 12-23-2021 Protein [Mass/Vol] 5.8 g/dL 6.1-7.9 [facility] RBC Auto (Bld) [#/Vol]Ordere d By: Leonel Aguirre on 12-23-2021 RBC (Bld) [#/Vol] 2.87 10*6/uL 3.60-5.00 [facility] Serum hepatitis B virus surf alex antibody detectionOrdered By: Leonel Aguirre on 12-23-2021 HBV surface Ab Ql (S) Non-Reactive . F [facility] Comment on above: Non Reactive: Incons istent with immunity, less than 10 mIU/mL Reactive: Consistent with immunity, greater than 9.9 mIU/mL Serum nuclear antibody titer Ordered By: Leonel Aguirre on 12-23-2021 Nuclear Ab (S) [Titer] Negative . [facility] [place] Comment on above: Negative <1:80 Borderline 1:80 Positive >1:80 ICAP nomenclature: AC-0 For more information about Hep-2 cell patterns use ANApatterns.org, the official website for the International Consensus on Antinuclear Antibody (EDNA) Patterns (ICAP). Performed at: [facility] [id number] [employer] Log[employer] Operator: Ponce Lr PhD, Phone: [phone] Serum or plasma alanine khan otransferase measurement without P-5'-P (enzymatic activiOrdered By: Leonel Aguirre on 12-23-2021 ALT No additional P-5'-P [Catalytic activity/Vol] 67 U/L 10-60 [facility] Serum or plasma albumin/glob ulin mass ratioOrdered By: Leonel Aguirre on 12-23-2021 Albumin/Globulin [Mass ratio] 2.2 {ratio} [facility] Serum or plasma alkaline gaston sphatase measurement (enzymatic activity/volume)Ordered By: Leonel Aguirre on 12-23-2021 ALP [Catalytic activity/Vol] 87 U/L 32-92 [facility] Serum or plasma aspartate am inotransferase measurement (enzymatic activity/volume)Ordered By: Leonel Aguirre on 12-23-2021 AST [Catalytic activity/Vol] 71 U/L 10-42 [facility] Serum or plasma calcium zuleyma urement (mass/volume)Ordered By: Leonel Aguirre on 12-23-2021 Calcium [Mass/Vol] 9.1 mg/dL 8.2-10.2 [facility] Serum or plasma chloride niko surement (moles/volume)Ordered By: Leonel Aguirre on 12-23-2021 Chloride [Moles/Vol] 99 mmol/L 95-114 [facility] Serum or plasma glucose zuleyma urement (mass/volume)Ordered By: Leonel Aguirre on 12-23-2021 Glucose [Mass/Vol] 101 mg/dL 70-100 [facility] Comment on above: ADA recommended refe [...] IA [Rel units/Vol] 0.1 s/co ratio 0.0-0.9 [facility] Serum or plasma potassium me asurement (moles/volume)Ordered By: Leonel Aguirre on 12-23-2021 Potassium [Moles/Vol] 5.8 mmol/L 3.5-5.1 [facility] Serum or plasma sodium measu rement (moles/volume)Ordered By: Leonel Aguirre on 12-23-2021 Sodium [Moles/Vol] 133 mmol/L 136-146 [facility] Serum or plasma total biliru bin measurement (mass/volume)Ordered By: Leonel Aguirre on 12-23-2021 Bilirubin [Mass/Vol] 0.9 mg/dL 0.3-1.2 [facility] Serum or plasma total carbon dioxide measurement (moles/volume)Ordered By: Leonel Aguirre on 12-23-2021 CO2 [Moles/Vol] 24.1 mmol/L 22.0-30.0 [facility] Serum or plasma urea nitroge n measurement (mass/volume)Ordered By: Leonel Aguirre on 12-23-2021 Urea nitrogen [Mass/Vol] 16 mg/dL 9-23 [facility] CHEMISTRYOrdered By: SYSTEM SYSTEM on 10-28-2021 CRP [Mass/Vol] 0.5 mg/dL Normal <=1.9mg/dL [facility] [place] Remisol HEMATOLOGYOrdered By: Melissa King on 10-28-2021 Sed Rate Automated 8 mm/h Normal 0 - 34 mm/hr [facility] [place] HemeAutoSS Reference Laboratory Testing Ordered By: Abril Holder on 10-28-2021 Lab Miscellaneous clerical error Invalid Interpretation Code [facility] [place] [facility] Testing Ordered By: Esmer Becerra on 10-28-2021 Test Code 950753 Invalid Interpretation Code [facility] [place] [facility] Test Name vit b6 Invalid Interpretation Code [facility] [place] [facility] Complete Blood Counton 07-20 Erythrocyte distribution width (RBC) [Ratio] 15.4 % High 11.0-15.0 [facility] Manager Of Care Comment on above: Performed By: #### C BC, CMP, LIPD #### [facility] [address] [place] [id number] Hematocrit (Bld) [Volume fraction] 31.7 % Low 35.0-47.0 [facility] Manager Of Care Comment on above: Performed By: #### C BC, CMP, LIPD #### [facility] [address] [place], [place] [id number] Hemoglobin (Bld) [Mass/Vol] 10.0 g/dL Low 11.6-15.5 [facility] Manager Of Care Comment on above: Performed By: #### C BC, CMP, LIPD #### [facility] [address] [facility] [place] [id number] MCH (RBC) [Entitic mass] 33.6 pg High 27.0-33.0 [facility] Specialist Comment on above: Performed By: #### C BC, CMP, LIPD #### [facility] [address] [facility] [place] [id number] MCHC (RBC) [Mass/Vol] 31.5 g/dL Low 32.0-36.0 [facility] Comment on above: Performed By: #### C BC, CMP, LIPD #### [facility] [address] [place], [place] [id number] MCV (RBC) [Entitic vol] 106 fL High 80-100 [facility] Comment on above: Performed By: #### C BC, CMP, LIPD #### [facility] [address] [place], [place] [id number] Platelet mean volume (Bld) [Entitic vol] 10.70 fL Normal 7.50-12.50 [facility] Specialist Comment on above: Performed By: #### C BC, CMP, LIPD #### [facility] [address] [place], [place] [id number] Platelets (Bld) [#/Vol] 189 10*3/uL Normal 140-400 [facility] Specialist Comment on above: Performed By: #### C BC, CMP, LIPD #### [facility] [address] [place], [place] [id number] RBC (Bld) [#/Vol] 2.98 10*6/uL Low 3.90-5.20 [facility] Specialist Comment on above: Performed By: #### C BC, CMP, LIPD #### [facility] [address] [place], [place] [id number] RDW-SD 58.5 fL High 37.0-50.0 [facility] Specialist Comment on above: Performed By: #### C BC, CMP, LIPD #### [facility] [address] [facility] [place] [id number] WBC (Bld) [#/Vol] 5.7 10*3/uL Normal 3.8-11.0 [place] Manager Of Care Comment on above: Performed By: #### C BC, CMP, LIPD #### [facility] [address] [place], [place] [id number] Comprehensive Metabolic Pane edel 07-20-2021 Albumin [Mass/Vol] 4.2 g/dL Normal 3.6-5.1 [place] Manager Of Care Comment on above: Performed By: #### C BC, CMP, LIPD #### [facility] [address] [place], [place] [id number] Albumin/Globulin [Mass ratio] 2.0 {ratio} Normal 1.0-2.5 [facility] Manager Of Care Comment on above: Performed By: #### C BC, CMP, LIPD #### [facility] [address] [place], [place] [id number] ALP [Catalytic activity/Vol] 117 U/L Normal 35-119 [facility] Manager Of Care Comment on above: Performed By: #### C BC, CMP, LIPD #### [facility] [address] [place], [place] [id number] ALT [Catalytic activity/Vol] 34 U/L High 6-33 [facility] Manager Of Care Comment on above: Result Comment: 04/21 Female reference range changed. Performed By: #### C BC, CMP, LIPD #### [facility] [address] [place], [place] [id number] Anion gap [Moles/Vol] 19 mmol/L Normal 12-20 [facility] Specialist Comment on above: Result Comment: Effe ctive 05/27/2019 reference range changed. Performed By: #### C BC, CMP, LIPD #### [facility] [address] [place], [place] [id number] AST [Catalytic activity/Vol] 45 U/L High 9-34 [facility] Specialist Comment on above: Performed By: #### C BC, CMP, LIPD #### [facility] [address] [place], [place] [id number] Bilirubin [Mass/Vol] 0.65 mg/dL Normal 0.30-1.20 [facility] Specialist Comment on above: Performed By: #### C BC, CMP, LIPD #### [facility] [address] [place], [place] [id number] BUN/CREA 16 Ratio Normal 6-22 [facility] Comment on above: Performed By: #### C BC, CMP, LIPD #### [facility] [address] [place], [place] [id number] Calcium [Mass/Vol] 9.3 mg/dL Normal 8.6-10.2 [facility] Comment on above: Performed By: #### C BC, CMP, LIPD #### [facility] [address] [place], [place] [id number] Chloride [Moles/Vol] 101 mmol/L Normal 98-107 [facility] Comment on above: Performed By: #### C BC, CMP, LIPD #### [facility] [address] [place], [place] [id number] CO2 [Moles/Vol] 22 mmol/L Normal 20-31 [facility] Comment on above: Performed By: #### C BC, CMP, LIPD #### [facility] [address] [place], [place] [id number] Creatinine [Mass/Vol] 1.1 mg/dL Normal 0.6-1.4 [facility] Comment on above: Performed By: #### C BC, CMP, LIPD #### [facility] [address] [place], [place] [id number] eGFRAA 61 mL/min/1.73m2 Normal >60 [facility] Specialist Comment on above: Performed By: #### C BC, CMP, LIPD #### [facility] [address] [place], [place] [id number] eGFRNAA 51 mL/min/1.73m2 Low >60 [facility] Comment on above: Performed By: #### C BC, CMP, LIPD #### [facility] [address] [place], [place] [id number] Globulin (S) [Mass/Vol] 2.1 g/dL Normal 1.9-3.7 [facility] Comment on above: Performed By: #### C BC, CMP, LIPD #### [facility] [address] [place], [place] [id number] Glucose [Mass/Vol] 94 mg/dL Normal 65-99 [place] Manager Of Care Comment on above: Result Comment: For FASTING Glucose --- ADA reference ranges: Normal 65-99 mg/dl Prediabetes 100-125 Diabetes >/= 126 Performed By: #### C BC, CMP, LIPD #### [facility] [address] [facility] [place] [id number] Potassium [Moles/Vol] 5.1 mmol/L Normal 3.5-5.5 [facility] Comment on above: Performed By: #### C BC, CMP, LIPD #### [facility] [address] [facility] [place] [place] [id number] Protein [Mass/Vol] 6.3 g/dL Normal 6.1-8.1 [place] Manager Of Care Comment on above: Performed By: #### C BC, CMP, LIPD #### [facility] [address] [facility] [place] [id number] Sodium [Moles/Vol] 137 mmol/L Normal 135-146 [facility] Manager Of Care Comment on above: Performed By: #### C BC, CMP, LIPD #### [facility] [address] [facility] [place] [id number] Urea nitrogen [Mass/Vol] 17 mg/dL Normal 7-25 [facility] Manager Of Care Comment on above: Performed By: #### C BC, CMP, LIPD #### [facility] [address] [place], [place] [id number] Hemoglobin A1Con 07-20-2021 EAG 108.28 Normal [facility] Manager Of Care Comment on above: Performed By: #### A 1C #### [facility] [address] [place], [place] [id number] HbA1c (Bld) [Mass fraction] 5.4 % Normal 4.0-6.0 [facility] Manager Of Care Comment on above: Performed By: #### A 1C #### [facility] [address] [place], [place] [id number] Lipid Panelon 07-20-2021 Cholesterol [Mass/Vol] 145 mg/dL Normal 125-200 [facility] Comment on above: Result Comment: Low risk < 200mg/dL Borderline risk 201-239 mg/dl High risk > or equal to 240 Performed By: #### C BC, CMP, LIPD #### [facility] [address] [place], [place] [id number] Cholesterol in HDL [Mass/Vol] 75 mg/dL Normal >40 [facility] Specialist Comment on above: Result Comment: High Cardiovascular Risk HDL <40 mg/dL Low Cardiovascular Risk HDL > or equal to 60 mg/dl Performed By: #### C BC, CMP, LIPD #### [facility] [address] [facility] [place] [id number] Cholesterol in LDL [Mass/Vol] 53 mg/dL Normal [facility] Comment on above: Result Comment: LDL ATP III CLASSIFICATION LDL less than 100 mg/dl Optimal LDL 100-129 mg/dl Near or above optimal LDL 130-159 Borderline high LDL 160-189 High LDL greater than 189 mg/dl Very High Performed By: #### C BC, CMP, LIPD #### [facility] [address] [place], [place] [id number] Cholesterol in VLDL [Mass/Vol] 17 mg/dL Normal [facility] Specialist Comment on above: Performed By: #### C BC, CMP, LIPD #### [facility] [address] [place], [place] [id number] Cholesterol.total/Carrie sterol in HDL [Mass ratio] 2 {ratio} Normal [facility] Comment on above: Performed By: #### C BC, CMP, LIPD #### [facility] [address] [place], [place] [id number] Triglyceride [Mass/Vol] 86 mg/dL Normal 30-150 [facility] Comment on above: Result Comment: TRIG ATPIII CLASSIFICATIONS TRIG less than 150 mg/dl Normal TRIG 150-199 mg/dl Borderline High TRIG 200-500 mg/dl High TRIG greather than 500 mg/dl Very High Performed By: #### C BC, CMP, LIPD #### [facility] [address] [place], [place] [id number] TSHon 07-20-2021 TSH 1.310 uIU/mL Normal 0.400-4.50 0 [facility] Specialist Comment on above: Performed By: #### T SH #### [facility] [address] [place], [place] [id number] Vitamin B12/Folateon 022 Cobalamin (Vitamin B12) [Mass/Vol] 447 pg/mL Normal 211-946 [facility] Manager Of Care Comment on above: Performed By: #### B 12/Fol #### [facility] [address] [place], [place] [id number] FOL 16.2 ng/mL Normal >4.7 [facility] Manager Of Care Comment on above: Result Comment: Refe rence range change 04/07/2017. Prior reference range F 4.8-37.3 ng/mL, M 4.5-32.2 ng/mL. Performed By: #### B 12/Fol #### [facility] [address] [place], [place] [id number] PROLACTINon 04-01-2021 Prolactin 29.3 ng/mL Critically high 4.8-23.3 [facility] Comment on above: Performed By: #### P ROLAC #### [facility] [address] [place] [address] Dr. Alma Rosa Rosado BNPon 03-31-2021 Natriuretic peptide B (Bld) [Mass/Vol] 981.0 pg/mL Normal <=1,800.0 [facility] Comment on above: Performed By: #### C RP, BNP, RENAL, BMP #### [facility] [address] [place] [address] Dr. Alma Rosa Rosado CBC AUTO DIFFon 03-31-2021 BASO # 0.0 103/ul Normal 0.0-0.1 [facility] Comment on above: Performed By: #### C BC #### [facility] [address] [place] [address] Dr. Alma Rosa Rosado Basophils/100 WBC (Bld) 0.6 % Normal 0.2-2.0 [facility] Comment on above: Performed By: #### C BC #### [facility] [address] [place] [address] Dr. Alma Rosa Rosado EO # 0.0 103/ul Normal 0.0-0.7 [facility] Comment on above: Performed By: #### C BC #### [facility] [address] [place] [address] Dr. Alma Rosa Rosado Eosinophils/100 WBC (Bld) 0.0 % Critically low 0.9-7.0 [facility] Comment on above: Performed By: #### C BC #### [facility] [address] [place] [address] Dr. Alma Rosa Rosado Erythrocyte distribution width (RBC) [Ratio] 13.4 % Normal 11.0-15.0 [facility] Comment on above: Performed By: #### C BC #### [facility] [address] [place] [address] Dr. Alma Rosa Rosado Hematocrit (Bld) [Volume fraction] 30.1 % Critically low 36.0-48.0 [facility] Comment on above: Performed By: #### C BC #### [facility] [address] [place] [address] Dr. Alma Rosa Rosado Hemoglobin (Bld) [Mass/Vol] 9.7 g/dL Critically low 12.0-16.0 [facility] Comment on above: Performed By: #### C BC #### [facility] [address] [place] [address] Dr. Alma Rosa Rosado IG # 0.05 10e3/ul Critically high 0.00-0.03 [facility] Comment on above: Performed By: #### C BC #### [facility] [address] [place] [address] Dr. Alma Rosa Rosado IG % 1.0 % Critically high 0.0-0.5 [facility] Comment on above: Performed By: #### C BC #### [facility] [address] [place] [address] Dr. Alma Rosa Rosado LYMPH # 1.2 103/ul Normal 1.2-3.8 [facility] Comment on above: Performed By: #### C BC #### [facility] [address] [place] [address] Dr. Alma Rosa Rosado Lymphocytes/100 WBC (Bld) 23.8 % Normal 20.5-60.0 [facility] Comment on above: Performed By: #### C BC #### [facility] [address] [place] [address] Dr. Alma Rosa Rosado MANUAL DIFF REQ NO Normal [facility] Comment on above: Performed By: #### C BC #### [facility] [address] [place] [address] Dr. Alma Rosa Rosado MCH (RBC) [Entitic mass] 33.3 pg Normal 26.7-34.0 [facility] Comment on above: Performed By: #### C BC #### [facility] [address] [place] [address] Dr. Alma Rosa Rosado MCHC (RBC) [Mass/Vol] 32.2 g/dL Normal 29.9-35.2 [facility] Comment on above: Performed By: #### C BC #### [facility] [address] [place] [address] Dr. Alma Rosa Rosado MCV (RBC) [Entitic vol] 103.4 fL Critically high 81.0-99 .0 [facility] Comment on above: Performed By: #### C BC #### [facility] [address] [place] [address] Dr. Alma Rosa Rosado MONO # 0.5 103/ul Normal 0.3-0.8 [facility] Comment on above: Performed By: #### C BC #### [facility] [address] [place] [address] Dr. Alma Rosa Rosado Monocytes/100 WBC (Bld) 11.0 % Normal 1.7-12.0 [facility] Comment on above: Performed By: #### C BC #### [facility] [address] [place] [address] Dr. Alma Rosa Rosado NEUT # 3.1 103/ul Normal 1.4-6.5 [facility] Comment on above: Performed By: #### C BC #### [facility] [address] [place] [address] Dr. Alma Rosa Rosado Neutrophils/100 WBC (Bld) 63.6 % Normal 43.0-75.0 [facility] Comment on above: Performed By: #### C BC #### [facility] [address] [place], [place] [id number] Dr. Alma Rosa Rosado Platelet mean volume (Bld) [Entitic vol] 10.0 fL Normal 9.5-13.5 [facility] Comment on above: Performed By: #### C BC #### [facility] [address] [place] [address] Dr. Alma Rosa Rosado PLT 165 103/ul Normal 150-450 [facility] Comment on above: Performed By: #### C BC #### [facility] [address] [place] [address] Dr. Alma Rosa Rosado RBC 2.91 106/ul Critically low 4.20-5.40 [facility] Comment on above: Performed By: #### C BC #### [facility] [address] [place] [address] Dr. Alma Rosa Rosado WBC 4.8 103/ul Normal 4.0-11.0 [facility] Comment on above: Performed By: #### C BC #### [facility] [address] [place] [address] Dr. Alma Rosa Rosado CRPon 03-31-2021 CRP [Mass/Vol] mg/L Normal <=1.0 [facility] Comment on above: Performed By: #### C RP, BNP, RENAL, BMP #### [facility] [address] [place] [address] Dr. Alma Rosa Rosado PROF CHEM 8 (BAS METB)on Anion gap [Moles/Vol] 10.9 mmol/L Normal [facility] Comment on above: Performed By: #### C RP, BNP, RENAL, BMP #### [facility] [address] [place] [address] Dr. Alma Rosa Rosado Calcium [Mass/Vol] 8.4 mg/dL Normal 8.4-10.2 [facility] Comment on above: Performed By: #### C RP, BNP, RENAL, BMP #### [facility] [address] [place] [address] Dr. Alma Rosa Rosado Chloride [Moles/Vol] 99 mmol/L Normal 98-107 [facility] Comment on above: Performed By: #### C RP, BNP, RENAL, BMP #### [facility] [address] [address] [address] Alma Rosa Rosado CO2 [Moles/Vol] 26.6 mmol/L Normal 22.0-30.0 [facility] Comment on above: Performed By: #### C RP, BNP, RENAL, BMP #### [facility] [address] [address] [address] Alma Rosa Rosado Creatinine [Mass/Vol] 0.83 mg/dL Normal 0.52-1.04 [facility] Comment on above: Performed By: #### C RP, BNP, RENAL, BMP #### [facility] [address] [address] [address] Alma Rosa Rosado EGFR-AF TOGOLESE >60 Normal >=60 [facility] Comment on above: Performed By: #### C RP, BNP, RENAL, BMP #### [facility] [address] [place] [address] Dr. Alma Rosa Rosado EGFR-NON AF TOGOLESE >60 Normal >=60 [facility] Comment on above: Performed By: #### C RP, BNP, RENAL, BMP #### [facility] [address] [address] [address] Alma Rosa Rosado Glucose [Mass/Vol] 101 mg/dL Normal 74-106 [facility] Comment on above: Performed By: #### C RP, BNP, RENAL, BMP #### [facility] [address] [address] [address] Alma Rosa Rosado Potassium [Moles/Vol] 4.4 mmol/L Normal 3.4-5.0 [facility] Comment on above: Performed By: #### C RP, BNP, RENAL, BMP #### [facility] [address] [address] [address] Alma Rosa Rosado Sodium [Moles/Vol] 132 mmol/L Critically low 137-145 [facility] Comment on above: Performed By: #### C RP, BNP, RENAL, BMP #### [facility] [address] [address] [address] Alma Rosa Rosado Urea nitrogen [Mass/Vol] 20.0 mg/dL Critically high 7.0-17.0 [facility] Comment on above: Performed By: #### C RP, BNP, RENAL, BMP #### [facility] [address] [address] [address] Alma Rosa Rosado Urea nitrogen/Creatinine [Mass ratio] 24.0 mg/mg Normal [facility] Comment on above: Performed By: #### C RP, BNP, RENAL, BMP #### [facility] [address] [address] [address] Alma Rosa Rosado RENAL FUNCTION PANELon 03-31 Albumin [Mass/Vol] 3.4 g/dL Critically low 3.5-5.0 [facility] Comment on above: Performed By: #### C RP, BNP, RENAL, BMP #### [facility] [address] [place] [address] Dr. Alma Rosa Rosado Phosphate [Mass/Vol] 3.3 mg/dL Normal 2.5-4.5 [facility] Comment on above: Performed By: #### C RP, BNP, RENAL, BMP #### [facility] [address] [address] [address] Alma Rosa Rosado SED RATE [facility] 2020 SED RATE <1 Normal <=30 [facility] Comment on above: Performed By: #### S EDR #### [facility] [address] [place] [address] Dr. Alma Rosa Garcían 03-18-2021 ALT [Catalytic activity/Vol] 31 U/L Normal 7 - 45 [facility] Comment on above: Result Comment: Zainab ents treated with Sulfasalazine may generate falsely decreased results for ALT. Performed By: #### A LT #### [address] [id number] [place] 03-18-2021 AST [Catalytic activity/Vol] 39 U/L Normal 9 - 39 [facility] Comment on above: Performed By: #### A ST #### [facility] [address] [place], [place] [id number] CBC AND DIFFERENTIALon 10-28 -2021 % AUTOMATED IMMATURE GRAN 0.8 % Normal 0.0 - 0.9 [facility] Comment on above: Result Comment: Sally ture Granulocyte Count (IG) includes promyelocytes, myelocytes and metamyelocytes but does not include bands. Percent differential counts (%) should be interpreted in the context of the absolute cell counts (cells/L). Performed By: #### C BCDF #### [address] [id number] Basophils (Bld) [#/Vol] 0.03 10*3/uL Normal 0.00 - 0.10 [facility] Comment on above: Performed By: #### C BCDF #### [address] [id number] Basophils/100 WBC (Bld) 0.5 % Normal 0.0 - 2.0 U [facility] Comment on above: Performed By: #### C BCDF #### [address] [id number] Erythrocyte distribution width (RBC) [Ratio] 13.2 % Normal 11.5 - 14.5 [facility] Comment on above: Performed By: #### C BCDF #### [address] [id number] Hematocrit (Bld) [Volume fraction] 31.2 % Low 36.0 - 46.0 [facility] Comment on above: Performed By: #### C BCDF #### [address] [id number] Hemoglobin (Bld) [Mass/Vol] 9.7 g/dL Low 12.0 - 16.0 [facility] Comment on above: Performed By: #### C BCDF #### [address] [id number] Lymphocytes (Bld) [#/Vol] 0.89 10*3/uL Normal 0.80 - 3.00 [facility] Comment on above: Performed By: #### C BCDF #### [address] [id number] Lymphocytes/100 WBC (Bld) 13.9 % Normal 13.0 - 44.0 [facility] Comment on above: Performed By: #### C BCDF #### [address] [id number] MCHC (RBC) [Mass/Vol] 31.1 g/dL Low 32.0 - 36.0 [facility] Comment on above: Performed By: #### C BCDF #### [address] [id number] MCV (RBC) [Entitic vol] 108 fL High 80 - 100 U [facility] Comment on above: Performed By: #### C BCDF #### [address] [id number] Monocytes (Bld) [#/Vol] 0.63 10*3/uL Normal 0.05 - 0.80 [facility] Comment on above: Performed By: #### C BCDF #### [address] [id number] Monocytes/100 WBC (Bld) 9.9 % Normal 2.0 - 10.0 [facility] Comment on above: Performed By: #### C BCDF #### [address] [id number] Neutrophils (Bld) [#/Vol] 4.78 10*3/uL Normal 1.60 - 5.50 [facility] Comment on above: Performed By: #### C BCDF #### [address] [id number] Neutrophils/100 WBC (Bld) 74.9 % Normal 40.0 - 80.0 [facility] Comment on above: Performed By: #### C BCDF #### [address] [id number] Platelets (Bld) [#/Vol] 157 10*3/uL Normal 150 - 450 [facility] Comment on above: Performed By: #### C BCDF #### [address] [id number] RBC 2.90 x10E12/L Low 4.00 - 5.20 [facility] Comment on above: Performed By: #### C BCDF #### [address] [id number] WBC (Bld) [#/Vol] 6.4 10*3/uL Normal 4.4 - 11.3 [facility] Comment on above: Performed By: #### C BCDF #### [address] [id number] CREATININEon 03-18-2021 Creatinine [Mass/Vol] 0.87 mg/dL Normal 0.50 - 1.05 [facility] Comment on above: Performed By: #### C REAT #### [address] [id number] GFR- AM. >60 Normal >60 [facility] Comment on above: Result Comment: CALC ULATIONS OF ESTIMATED GFR ARE PERFORMED USING THE MDRD STUDY EQUATION FOR THE IDMS-TRACEABLE CREATININE METHODS. CLIN CHEM 2007;53:766-72 Performed By: #### C REAT #### [address] [id number] GFR-NON AM. >60 Normal >60 [facility] Comment on above: Performed By: #### C REAT #### [address] [id number] SEDIMENTATION RATE, ERYTHROC YTEon 03-18-2021 SEDIMENTATION RATE, ERYTHROCYTE 7 mm/h Normal 0 - 20 [facility] Comment on above: Performed By: #### E SRWS #### [address] [id number] Hugo 07-24-2020 ALT [Catalytic activity/Vol] 34 U/L Normal 7 - 45 [facility] Comment on above: Result Comment: Zainab ents treated with Sulfasalazine may generate falsely decreased results for ALT. Performed By: #### A LT #### [address] [id number] Obie 07-24-2020 AST [Catalytic activity/Vol] 38 U/L Normal 9 - 39 [facility] Comment on above: Performed By: #### A ST #### [address] [id number] CBC AND DIFFERENTIALon 07-24 % AUTOMATED IMMATURE GRAN 0.5 % Normal 0.0 - 0.9 [facility] Comment on above: Result Comment: Sally ture Granulocyte Count (IG) includes promyelocytes, myelocytes and metamyelocytes but does not include bands. Percent differential counts (%) should be interpreted in the context of the absolute cell counts (cells/L). Performed By: #### C BCDF #### [address] [id number] Basophils (Bld) [#/Vol] 0.03 10*3/uL Normal 0.00 - 0.10 [facility] Comment on above: Performed By: #### C BCDF #### [address] [id number] Basophils/100 WBC (Bld) 0.5 % Normal 0.0 - 2.0 U [facility] Comment on above: Performed By: #### C BCDF #### [address] [id number] Erythrocyte distribution width (RBC) [Ratio] 14.1 % Normal 11.5 - 14.5 [facility] Comment on above: Performed By: #### C BCDF #### [address] [id number] Hematocrit (Bld) [Volume fraction] 34.9 % Low 36.0 - 46.0 [facility] Comment on above: Performed By: #### C BCDF #### [address] [id number] Hemoglobin (Bld) [Mass/Vol] 10.8 g/dL Low 12.0 - 16.0 [facility] Comment on above: Performed By: #### C BCDF #### [address] [id number] Lymphocytes (Bld) [#/Vol] 1.14 10*3/uL Normal 0.80 - 3.00 [facility] Comment on above: Performed By: #### C BCDF #### [address] [id number] Lymphocytes/100 WBC (Bld) 20.1 % Normal 13.0 - 44.0 [facility] Comment on above: Performed By: #### C BCDF #### [address] [id number] MCHC (RBC) [Mass/Vol] 30.9 g/dL Low 32.0 - 36.0 [facility] Comment on above: Performed By: #### C BCDF #### [address] [id number] MCV (RBC) [Entitic vol] 106 fL High 80 - 100 U [facility] Comment on above: Performed By: #### C BCDF #### [address] [id number] Monocytes (Bld) [#/Vol] 0.55 10*3/uL Normal 0.05 - 0.80 [facility] Comment on above: Performed By: #### C BCDF #### [address] [id number] Monocytes/100 WBC (Bld) 9.7 % Normal 2.0 - 10.0 [facility] Comment on above: Performed By: #### C BCDF #### [address] [id number] Neutrophils (Bld) [#/Vol] 3.91 10*3/uL Normal 1.60 - 5.50 [facility] Comment on above: Performed By: #### C BCDF #### [address] [id number] Neutrophils/100 WBC (Bld) 69.2 % Normal 40.0 - 80.0 [facility] Comment on above: Performed By: #### C BCDF #### [address] [id number] Platelets (Bld) [#/Vol] 162 10*3/uL Normal 150 - 450 [facility] Comment on above: Performed By: #### C BCDF #### [address] [id number] RBC 3.28 x10E12/L Low 4.00 - 5.20 [facility] Comment on above: Performed By: #### C BCDF #### [address] [id number] WBC (Bld) [#/Vol] 5.7 10*3/uL Normal 4.4 - 11.3 [facility] Comment on above: Performed By: #### C BCDF #### [address] [id number] CREATININEon 07-24-2020 Creatinine [Mass/Vol] 1.00 mg/dL Normal 0.50 - 1.05 [facility] Comment on above: Performed By: #### C REAT #### [address] [id number] GFR- AM. 65 mL/min/1.73m2 Normal >60 [facility] Comment on above: Result Comment: CALC ULATIONS OF ESTIMATED GFR ARE PERFORMED USING THE MDRD STUDY EQUATION FOR THE IDMS-TRACEABLE CREATININE METHODS. CLIN CHEM 2007;53:766-72 Performed By: #### C REAT #### [address] [id number] GFR-NON AM. 54 mL/min/1.73m2 Abnormal >60 [facility] Comment on above: Performed By: #### C REAT #### [address] [id number] SEDIMENTATION RATE, ERYTHROC YTEon 07-24-2020 SEDIMENTATION RATE, ERYTHROCYTE 1 mm/h Normal 0 - 20 [facility] Comment on above: Performed By: #### E SRWS #### [address] [id number] CHEST AND LATERALon 01-20-20 17 [facility]AL [facility] [address] [place] [address] Zainab ent Name: KIKI MOORE : 1945Sex: FAge: Race: WhiteMRN: [id number]. Location: OUTPPatient Status: OVisit #: [id number] Date: 01/19/2017 7:00:00 AMCompleted Date: 01/19/2017 09:22 AMRequesting Provider: JORDAN BURNHAM Attending Provider: ROMINA ROBERTSON V Report Copy To: Signs & Symptoms: Evaluate the deviceHistory: Patient history not availableComments: s/p PFO closureExam: CHEST AND LATERALAccession #: [id number] ===CHEST AND LATERAL 01/19/2017 9:22 AM EDT [...] findings. Electronically signed by:Lola Petersen. Transcribed by: [email or web address], User Resident: DELIA Lovellectronically Signed by: LOLA PETERSEN @ 01/19/2017 11:30 AMI personally read this/these film(s) with this resident Normal [facility] Comment on above: Order Comment: s/p P FO closure Cardiovascular Lab Reporton 01-19-2017 Cardiovascular Lab Report [facility] Patient Name: Kiki Moore MR #: [id number] Physician: Romina Robertson M.D.Department of Service Date: 01/18/2017Medicine Birthdate: 1945Division of Room #: 3AB [id number] CardiovascularServicesUniv [facility] HospitalDljhoeuVyeifs[address] [place], [place] [address]Lzjbm Fax Cardiovascular Laboratory ReportINDICATION: Kiki Moore is [...] signed informed consent. [facility] [place] [facility] [place] The patient has been premedicated with aspirin and Plavix. She waspremedicated with antibiotics prior to the procedure.The groin areas were prepped and draped in usual fashion. Access into theright and left common femoral veins was obtained under ultrasound guidanceand a 11-Trinidadian sheath was placed in the left femoral vein and a 6-Frenchsheath was placed in the right femoral vein. An 3KeyIt intracardiacechocardiograp hy catheter was then advanced from the left femoral vein intothe right atrial cavity and used to perform intracardiac echocardiography.A 6-Trinidadian multipurpose catheter was advanced from the right [...] the rightfemoral vein was exchanged to a 11-Trinidadian Gilboa sheath. The patienttolerated the procedure well. There [...] 01/18/2017/11:23 A/Romina Robertson M.D.Date Trans: 01/19/2017 08:33 [id number] c: CARMEL Aldridge[address] [address] Normal [facility] CREATININE BLOODon 7 Creatinine 1.05 mg/dL Normal 0.60-1.20 [facility] Comment on above: Performed By: #### 2 5656 ####[place] [id number] [facility].[address] eGFR (black) mL/min/{1.73_m2} Normal >60 [facility] Comment on above: Performed By: #### 2 5656 ####[place] [address] [facility].[address] eGFR (non-black) 52 ml/min/1.73sq m Abnormal >60 [facility] Comment on above: Performed By: #### 2 5656 ####[address] CTA HEART-CORONARY/ ARTERY B YPASS GRAFT WITH 3DPPon 12-30-2016 CTA HEART-CORONARY/ ARTERY BYPASS GRAFT WITH 3DPP [facility] [address] [place] [address] Zainab ent Name: KIKI MOORE : 1945Sex: FAge: Race: WhiteMRN: [id number]. Location: OUTPPatient Status: DVisit #: [id number] Date: 12/30/2016 1:00:00 PMCompleted Date: 12/30/2016 02:44 PMRequesting Provider: ROMINA ROBERTSON V Attending Provider: ROMINA ROBERTSON V Report Copy To: CINDA CORONEL Signs & Symptoms: R/O malignant course of anomalous RCAHistory: Script with patientComments: R/O malignant course of anomalous RCAExam: CTA HEART-CORONARY/ ARTERY BYPASS GRAFT WITH 3DPPAccession #: [id number] ===CTA HEART-CORONARY/ ARTERY BYPASS GRAFT WITH 3DPP [...] findings. Electronically signed by:Lola Petersen. Transcribed by: [email or web address], User Resident: PATRICA YEBOAHElectronically Signed by: LOLA PETERSEN @ 01/03/2017 12:33 PMI personally read this/these film(s) with this resident Normal [facility] Comment on above: Order Comment: R/O m alignant course of anomalous RCA Cardiovascular Lab Reporton 12-22-2016 Cardiovascular Lab Report [facility] Patient Name: Kiki Moore MR #: [id number] Physician: Romina Robertson M.D.Department of Service Date: 12/21/2016Medicine Birthdate: 1945Division of Room #: CCCardiologyAdult CardiovascularServicesUniv [facility] HospitalBjcpbntRizldx[address] [place], [place] [address]Pffni Fax Cardiovascular Laboratory ReportINDICATION:Kiki Moore is a 71-year-old lady, known to have history of cryptogenicstroke. She underwent investigation for the cause of the stroke, and shewas found to have a large PFO with mxhmd-ty-prga shunting. She is plannedfor a PFO closure. [...] signedthe informed consent. She was brought to laborer hide house in fasting state. Theright groin area was prepped and draped in usual fashion. Usingmicropuncture technique, the right common femoral artery was accessed and a5-Trinidadian x 11 cm sheath was placed. Limited right femoral angiography wasperformed. Bilateral selective coronary angiography was then performed. A5-Trinidadian JL4 diagnostic catheter was advanced and used to engage the leftmain coronary ostium. Angiography was performed in multiple views.Catheter was removed.Attempt at engagement of the right coronary artery with a 5-Trinidadian JR4 shanon 4-Trinidadian 3DRC as well as a 5-Trinidadian AR modified and 5-Trinidadian XJ8lbebdltdjq catheters failed. The catheters were removed. A 5-Frenchstraight pigtail catheter was advanced into the ascending aorta. Aorticroot angiography was performed in the left anterior oblique view using apower injection of contrast.The access sheath was upsized to a 6-Trinidadian x 11 cm sheath. Multipleadditional catheters were used to attempt engagement of the right coronaryartery. Those were 6-Trinidadian AR 2 diagnostic catheter, 6-Trinidadian AR 2guiding catheter, 6-Trinidadian AL 2 diagnostic catheter, and a 6-Trinidadian MPA 2diagnostic catheter. Eventually, we were able to engage the right coronaryostium with a 6-Trinidadian Sagar radial diagnostic catheter. Angiography wasperformed in multiple views. The catheter was removed.Heparin was administered intravenously and therapeutic ACT confirmed duringthe procedure. A 6-Trinidadian XB 3.5 guiding catheter was advanced and used toengage the left main coronary ostium. A [employer] FFR wire was advanced andequalization of pressures [...] 12/21/2016/09:56 A/Romina Robertson M.D.Date Trans: 12/22/2016 06:07 [id number] c: CARMEL Aldridge [address] Vital Signs Date Time Vital Sign Value Performing Clinician Facility 02-11-2023 13:52-0400 Body temperature 98.4 [degF] PHYSICIAN NO [facility] 02-11-2023 13:52-0400 Diastolic blood pressure 74 mm[Hg] PHYSICIAN NO [facility] 02-11-2023 13:52-0400 Heart rate 67 /min PHYSICIAN NO [facility] 02-11-2023 13:52-0400 Respiratory rate 18 /min PHYSICIAN NO [facility] 02-11-2023 13:52-0400 SaO2% (BldA) [Mass fraction] 97 % PHYSICIAN NO [facility] 02-11-2023 13:52-0400 Systolic blood pressure 118 mm[Hg] PHYSICIAN NO [facility] 02-07-2023 11:47-0400 Body height 154.94 cm PHYSICIAN NO [facility] 02-05-2023 06:09-0400 Body weight 79.2 kg PHYSICIAN NO [facility] 12-23-2022 10:16-0400 Body height 154.9 cm Pacc 2 Work Phone: [facility] 12-23-2022 10:16-0400 Body temperature 98.1 [degF] Pacc 2 Work Phone: [facility] 12-23-2022 10:16-0400 Body weight 75.75 kg Pacc 2 Work Phone: [facility] 12-23-2022 10:16-0400 Diastolic blood pressure 53 mm[Hg] Pacc 2 Work Phone: [facility] 12-23-2022 10:16-0400 Heart rate 58 /min Pacc 2 Work Phone: [facility] 12-23-2022 10:16-0400 Respiratory rate 16 /min Pacc 2 Work Phone: [facility] 12-23-2022 10:16-0400 SaO2% (BldA) [Mass fraction] 99 % Pacc 2 Work Phone: [facility] 12-23-2022 10:16-0400 Systolic blood pressure 119 mm[Hg] Pacc 2 Work Phone: [facility] 05-18-2022 11:00-0500 Diastolic blood pressure 80 mm[Hg] Eliazar MELODY [facility] 05-18-2022 11:00-0500 Hourly Rounding Eliazar MELODY [facility] 05-18-2022 11:00-0500 Mean blood pressure 102 mm[Hg] Eliazar MELODY [facility] 05-18-2022 11:00-0500 Promise to Return Eliazar MELODY [facility] 05-18-2022 11:00-0500 Systolic blood pressure 145 mm[Hg] Eliazar MELODY [facility] 05-18-2022 10:25-0500 Hourly Rounding Eliazar MELODY [facility] 05-18-2022 10:25-0500 Promise to Return Eliazar MELODY [facility] 05-18-2022 09:28-0500 Hourly Rounding Eliazar MELODY [facility] 05-18-2022 09:28-0500 Promise to Return Eliazar MELODY [facility] 05-18-2022 09:25-0500 Diastolic blood pressure 85 mm[Hg] Eliazar MELODY [facility] 05-18-2022 09:25-0500 Systolic blood pressure 160 mm[Hg] Eliazar MELODY [facility] 05-18-2022 08:39-0500 Heart rate 86 /min Eliazarpaco GEORGESLIN [facility] 05-18-2022 08:39-0500 Respiratory rate 17 /min Eliazarpaco GEORGESLIN [facility] 05-18-2022 08:23-0500 Heart rate 81 /min Eliazarpaco GEORGESLIN [facility] 05-18-2022 08:23-0500 SaO2% (BldA) [Mass fraction] 96 % Eliazarpaco GEORGESLIN [facility] 05-18-2022 08:23-0500 Respiratory rate 16 /min Eliazarpaco GEORGESLIN [facility] 05-18-2022 08:22-0500 Body temperature 98.24 [degF] Eliazarpaco GEORGESLIN [facility] 05-18-2022 08:22-0500 Diastolic blood pressure 85 mm[Hg] Eliazarpaco GEORGESLIN [facility] 05-18-2022 08:22-0500 Mean blood pressure 110 mm[Hg] Eliazarpaco GEORGESLIN [facility] 05-18-2022 08:22-0500 Systolic blood pressure 160 mm[Hg] Eliazarpaco GEORGESLIN [facility] 05-18-2022 08:00-0500 Blood Pressure Location Eliazarpaco GEORGESLIN [facility] 05-18-2022 00:00-0500 Body temperature 98.42 [degF] Eliazarpaco GEORGESLIN [facility] 05-18-2022 00:00-0500 Heart rate 79 /min Eliazarpaco GEORGESLIN [facility] 05-18-2022 00:00-0500 Mean blood pressure 84 mm[Hg] Eliazar GEORGESLIN [facility] 05-18-2022 00:00-0500 Respiratory rate 18 /min Eliazarpaco GEORGESLIN [facility] 05-18-2022 00:00-0500 SaO2% (BldA) [Mass fraction] 98 % Eliazarpaco GEORGESLIN [facility] 05-17-2022 21:09-0500 SaO2% (BldA) [Mass fraction] 96 % Eliazar GEORGESLIN [facility] 05-17-2022 21:08-0500 Body temperature 98.24 [degF] Eliazarpaco GEORGESLIN [facility] 05-17-2022 21:08-0500 Mean blood pressure 89 mm[Hg] Eliazarpaco GEORGESLIN [facility] 05-17-2022 15:56-0500 Body temperature 98.24 [degF] Eliazarpaco GEORGESLIN [facility] 05-17-2022 15:56-0500 Mean blood pressure 77 mm[Hg] Eliazar GEORGESLIN [facility] 05-17-2022 10:24-0500 Heart rate 70 /min Eliazar GEORGESLIN [facility] 05-17-2022 00:00-0500 Body temperature 97.88 [degF] Eliazarpaco GEORGESLIN [facility] 05-16-2022 19:00-0500 Body temperature 98.6 [degF] Eliazarpaco GEORGESLIN [facility] 05-16-2022 11:00-0500 Blood Pressure Location Eliazarpaco GEORGESLIN [facility] 05-16-2022 11:00-0500 Mean blood pressure 101 mm[Hg] Eliazar OLIVER [facility] 05-15-2022 16:00-0500 Blood Pressure Location Eliazar OLIVER [facility] 05-15-2022 00:05-0500 Heart rate 77 /min Eliazar OLIVER [facility] 05-14-2022 23:45-0500 Heart rate 80 /min Eliazar OLIVER [facility] 02-05-2022 01:29-0400 Diastolic blood pressure 77 mm[Hg] Kaylinn Dokken [facility] 02-05-2022 01:29-0400 Heart rate 75 /min Kaylinn Dokken [facility] 02-05-2022 01:29-0400 Respiratory rate 16 /min Kaylinn Dokken [facility] 02-05-2022 01:29-0400 SaO2% (BldA) [Mass fraction] 96 % Kaylinn Dokken [facility] 02-05-2022 01:29-0400 Systolic blood pressure 124 mm[Hg] Kaylinn Dokken [facility] 02-04-2022 23:36-0400 Body temperature 99.5 [degF] Kaylinn Dokken [facility] 02-04-2022 23:36-0400 Diastolic blood pressure 82 mm[Hg] Kaylinn Dokken [facility] 02-04-2022 23:36-0400 Heart rate 89 /min Kaylinn Dokken [facility] 02-04-2022 23:36-0400 Respiratory rate 16 /min Brady Linn [facility] 02-04-2022 23:36-0400 SaO2% (BldA) [Mass fraction] 96 % Brady Linn [facility] 02-04-2022 23:36-0400 Systolic blood pressure 146 mm[Hg] Brady Linn [facility] 09-21-2021 14:00-0400 Mean blood pressure 77 mm[Hg] Raffy Crowley [facility] 09-21-2021 14:00-0400 SaO2% (BldA) [Mass fraction] 96 % Raffy Crowley [facility] 09-21-2021 14:00-0400 Systolic blood pressure 110 mm[Hg] Raffy Blume [facility] 09-21-2021 13:45-0400 Diastolic blood pressure 65 mm[Hg] Raffy Crowley [facility] 09-21-2021 13:45-0400 Heart rate 68 /min Raffy Crowley [facility] 09-21-2021 13:45-0400 Mean blood pressure 83 mm[Hg] Raffy Blume [facility] 09-21-2021 13:45-0400 Respiratory rate 16 /min Raffy Crowley [facility] 09-21-2021 13:45-0400 SaO2% (BldA) [Mass fraction] 97 % Raffy Crowley [facility] 09-21-2021 13:45-0400 Systolic blood pressure 119 mm[Hg] Raffy Crowley [facility] 09-21-2021 13:33-0400 Body temperature 98.42 [degF] Raffy Crowley [facility] 09-21-2021 13:33-0400 Diastolic blood pressure 61 mm[Hg] Raffy Crowley [facility] 09-21-2021 13:33-0400 Heart rate 72 /min Raffy Crowley [facility] 09-21-2021 13:33-0400 Respiratory rate 18 /min Raffy Crowley [facility] 09-21-2021 13:33-0400 SaO2% (BldA) [Mass fraction] 98 % Raffy Crowley [facility] 09-21-2021 13:33-0400 Systolic blood pressure 135 mm[Hg] Raffy Crowley [facility] 09-21-2021 13:05-0400 Diastolic blood pressure 50 mm[Hg] Julianne Aguilarmetz [facility] 09-21-2021 13:05-0400 Mean blood pressure 64 mm[Hg] Julianneelfego AguilarMaykel [facility] 09-21-2021 13:05-0400 Systolic blood pressure 92 mm[Hg] Julianne Maykel [facility] 09-21-2021 12:55-0400 Blood Pressure Location Julianne Maykel [facility] 09-21-2021 12:55-0400 Body temperature 97.7 [degF] Julianneelfego AguilarMaykel [facility] 09-21-2021 12:55-0400 Diastolic blood pressure 58 mm[Hg] Julianne Morrellz [facility] 09-21-2021 12:55-0400 Heart rate 67 /min Julianne Brar [facility] 09-21-2021 12:55-0400 SaO2% (BldA) [Mass fraction] 97 % Julianne Brar [facility] 09-21-2021 12:55-0400 Systolic blood pressure 89 mm[Hg] Julianne Brar [facility] 09-03-2021 09:50-0400 Diastolic blood pressure 63 mm[Hg] Piedra SALAM [facility] 09-03-2021 09:50-0400 Heart rate 68 /min Piedra SALAM [facility] 09-03-2021 09:50-0400 Respiratory rate 21 /min Piedra SALAM [facility] 09-03-2021 09:50-0400 SaO2% (BldA) [Mass fraction] 97 % Piedra SALAM [facility] 09-03-2021 09:50-0400 Systolic blood pressure 116 mm[Hg] Piedra SALAM [facility] 09-03-2021 09:35-0400 Diastolic blood pressure 51 mm[Hg] Piedra SALAM [facility] 09-03-2021 09:35-0400 Heart rate 70 /min Piedra SALAM [facility] 09-03-2021 09:35-0400 Respiratory rate 18 /min Piedra SALAM [facility] 09-03-2021 09:35-0400 SaO2% (BldA) [Mass fraction] 97 % Piedra SALAM [facility] 09-03-2021 09:35-0400 Systolic blood pressure 99 mm[Hg] Piedra SALAM [facility] 09-03-2021 09:30-0400 Diastolic blood pressure 51 mm[Hg] Piedra SALAM [facility] 09-03-2021 09:30-0400 Heart rate 68 /min Piedra SALAM [facility] 09-03-2021 09:30-0400 Respiratory rate 16 /min Piedra SALAM [facility] 09-03-2021 09:30-0400 SaO2% (BldA) [Mass fraction] 94 % Piedra SALAM [facility] 09-03-2021 09:30-0400 Systolic blood pressure 99 mm[Hg] Piedra SALAM [facility] 09-03-2021 09:24-0400 Body temperature 97.34 [degF] Piedra SALAM [facility] 09-03-2021 09:20-0400 Respiratory rate 15 /min Piedra SALAM [facility] 09-03-2021 09:15-0400 Respiratory rate 14 /min Piedra SALAM [facility] 09-03-2021 09:10-0400 Respiratory rate 18 /min Piedra SALAM [facility] 09-03-2021 07:57-0400 Blood Pressure Location Tadeo CARBAJAL [facility] 09-03-2021 07:57-0400 Body temperature 97.7 [degF] Piedrahansel CARBAJAL [facility] Encounters Encounter Date Encounter Type Care Provider Facility Start: 08-16-2023 End: 08-16-2023 ambulatory CINDA CORONEL Facility:[facility] Start: 07-07-2023 ambulatory [facility]ONEL AGUIRRE [facility] Start: 07-05-2023 Bamboo flowsheet Aury Freeman hler DO Work Phone: [facility] Start: 07-05-2023 Bamboo flowsheet Aury Freeamn hler DO Work Phone: [facility] Start: 07-05-2023 End: 07-05-2023 ambulatory AURY BASS Not Available Start: 04-17-2023 End: 04-17-2023 ambulatory SHAN BOX Facility:[facility] Start: 04-17-2023 End: 04-17-2023 Patient encounter procedure Shan Box MD Work Phone: Orthopaedics Comment on above: S/P total knee repla cement, left (Primary Dx) Start: 04-05-2023 End: 04-05-2023 ambulatory Leonel Aguirre Facility:[facility] Start: 04-05-2023 End: 04-05-[address] [facility] Work Phone: Start: 04-05-2023 End: 04-05-2023 Patient encounter procedure PHYSICIAN CORY [facility] [address] Work Phone: Start: 03-06-2023 End: 03-06-2023 ambulatory SHAN BOX Facility:[facility] Start: 03-06-2023 End: 03-06-2023 Patient encounter procedure Shan Box MD Work Phone: Orthopaedics Comment on above: S/P total knee repla cement, left (01/17/2023) (Primary Dx) Start: 02-10-2023 End: 02-10-2023 ambulatory CINDA CORONEL Facility:[facility] Start: 01-31-2023 End: 02-11-2023 Evaluation and management of inpatient Syd Muir Facility:[facility] Start: 01-31-2023 End: 02-11-2023 Evaluation and management of inpatient PHYSICIAN CORY DILLON [facility] Work Phone: Start: 01-17-2023 End: 01-19-2023 ambulatory SHAN BOX Facility:[facility] Start: 12-30-2022 End: 12-31-2022 ambulatory CINDA CORONEL Facility:[facility] Start: 12-30-2022 Encounter for other preprocedural examination CINDA CORONEL [facility] Start: 12-23-2022 Encounter for other preprocedural examination CINDA CORONEL [facility] Start: 12-23-2022 End: 12-24-2022 ambulatory CINDA CORONEL Facility:[facility] Start: 12-23-2022 End: 12-23-2022 Admission to establishment Pacc Cop[place] 2 Work Phone: [facility] Start: 12-23-2022 End: 12-23-2022 ambulatory Pacc [place] 2 Work Phone: Pre Anesthesia Comment on [...] 12-23-2022 End: 12-23-2022 Preprocedural examination done Pacc [place] 2 Work Phone: [facility] Work Phone: Start: 12-14-2022 End: 12-14-2022 ambulatory SHAN OBX Facility:[facility] Start: 11-21-2022 End: 11-22-2022 Orders Only Shan Box MD Work Phone: Orthopaedics Comment on above: Primary osteoarthrit is of left knee (Primary Dx) Start: 11-21-2022 End: 11-21-2022 Patient encounter procedure COOKIE QUIROZ [facility] Start: 11-15-2022 End: 11-16-2022 ambulatory Cinda CORONEL Facility:[facility] Start: 11-15-2022 End: 11-15-2022 Patient encounter procedure Cinda CORONEL [facility] Start: 11-09-2022 End: 11-09-2022 ambulatory [facility] Start: 10-26-2022 End: 10-26-2022 ambulatory Sanna [...] End: 06-28-2022 Patient encounter procedure COOKIE QUIROZ [facility] Start: 06-02-2022 End: 06-02-2022 Patient encounter procedure Cinda CORONEL [facility] Start: 05-14-2022 End: 05-18-2022 Evaluation and management of inpatient Eliazar OLIVER [facility] Start: 04-27-2022 End: 04-27-2022 ambulatory Leonel Aguirre Facility:[facility] Start: 04-27-2022 End: 04-27-2022 ambulatory MD Leonel Aguirre Work Phone: [facility] Work Phone: Start: 04-27-2022 End: 04-27-2022 Patient encounter procedure MD Leonel Aguirre Work Phone: [facility] [address] Start: 04-22-2022 End: 04-22-2022 Patient encounter procedure ALEXANDER TREVIÑO [facility] Start: 04-12-2022 End: 04-12-2022 Patient encounter procedure LEONEL AGUIRRE [facility] Start: 02-04-2022 End: 02-05-2022 Emergency department patient visit Brady Linn [facility] Start: 01-28-2022 End: 10-23-2022 Recurring LEONEL AGUIRRE [facility] Start: 12-23-2021 End: 12-23-2021 Patient encounter procedure MD Leonel Aguirre Work Phone: [facility] [address] Start: 10-28-2021 End: 10-28-2021 Patient encounter procedure Connor Benítez [facility] Start: 09-21-2021 End: 09-21-2021 Emergency department patient visit Raffy Crowley [facility] Start: 09-21-2021 End: 09-21-2021 Patient encounter procedure Julianne Brar [facility] Start: 09-03-2021 End: 09-03-2021 Patient encounter procedure Tadeo CARBAJAL [facility] Start: 04-15-2021 ambulatory RICCO MOSER Facility:[facility] Start: 03-31-2021 End: 04-01-[address] DOCTOR POLLACK Facility:[facility] Start: 09-05-2017 End: 09-06-2017 Patient encounter DEFAULT PHYSICIAN Facility:[facility] Start: 02-14-2017 End: 02-15-2017 Patient encounter DEFAULT PHYSICIAN Facility:[facility] Start: 01-18-2017 End: 01-19-2017 Patient encounter PROVIDER UNKNOWN Facility:[facility] Start: 12-30-2016 End: 12-31-2016 Patient encounter PROVIDER UNKNOWN Facility:[facility] Start: 12-21-2016 End: 12-22-2016 Patient encounter PROVIDER UNKNOWN Facility:[facility] Start: 03-04-2015 End: 03-04-2015 Telephone encounter Juliana Pruitt (Rn) (Hist) Justin BERG [facility] Comment on above: Surgical Followup [...] now? 2 Result Comment: PERF ORMED BY: [facility] [address] [address] PATHOLOGIST HEAD FILTER PRESS TENDER KWADWO PULIDO M.D. Start: 02-01-2023 Radiologic examination of knee PHYSICIAN NO FAMILY Start: 01-31-2023 Duplex scan of lower limb veins PHYSICIA N NO FAMILY Start: 12-23-2022 Antibody screen CINDA CORONEL Comment on above: Order Comment: Specimen Type: BLOOD SPEC IMENOrdering Facility: [facility] Address: [address] [place] [address] Performed By: #### T [id number] ####CC MAIN BLOOD BANKCLIA [id number] [facility] [id number] [facility] Start: 10-26-2022 Iadna s aureus amplified probe tq Bob Box MD Work Phone: Start: 12-23-2021 Plain X-ray of bilateral hands MD Leonel Aguirre Work Phone: Start: 12-23-2021 Plain X-ray of bilateral wrists MD Aly Aguirre Work Phone: Start: 09-03-2021 Colonoscopy [employer] Comment on above: diverticulosis, moderate IH Start: 09-08-2020 Repair of incisional hernia [employer] Start: 05-17-2019 Repair of umbilical hernia Piedra Algramo Comment on above: UMBILICAL HERNIA REPAIR ADULT Start: 01-22-2019 Cholecystectomy Piedra Algramo Start: 11-14-2018 Amputation of toe Piedra Algramo Comment on above: Left second toe amputation and left thir d digit proximal interphalangeal J joint arthrodesis with 0.045 K-wire Start: 02-06-2016 Esophagogastroduodenoscopy Piedra Algramo Start: 03-16-2010 left RTC repair Piedra Algramo Start: 10-06-2006 H/O: artificial joint Knee joint [...] Start: 01-18-2026 Diabetes Screening Diabetes Screenin g [facility] Start: 12-24-2023 BP CONTROLLED (<130/80) BP CONTROLLE D (<130/80) [facility] Start: 02-11-2023 [facility] Start: 01-31-2023 Hospital admission [facility] Start: 01-31-2023 Referral to clinical senior geotechnical engineer [facility] Start: 01-31-2023 [facility] Start: 01-20-2023 Influenza vaccination [facility] Start: 12-20-2022 End: 02-19-2023 Bacteria identified in Urine by Culture URINE CULTURE Microbiology Routine Pre-op testing Expected: 12/20/2022 (Approximate), Expires: 02/19/2023 [facility] Work Phone: Comment on above: Expected: 12/20/2022 (Approximate), Expires: 02/19/2023 Start: 12-20-2022 End: 02-19-2023 TYPE AND SCREEN,30 DAY TYPE AND SCREEN,30 DAY Blood Bank Routine Pre-op testing Expected: 12/20/2022 (Approximate), Expires: 02/19/2023 [facility] Work Phone: Comment on above: Expected: 12/20/2022 (Approximate), Expires: 02/19/2023 Start: 10-27-2022 End: 12-27-2022 Basic metabolic 2000 panel - Serum or Plasma BASIC METABOLIC PNL Lab Routine Pre-op testing Expected: 10/27/2022, Expires: 12/27/2022 [facility] Work Phone: Comment on above: Expected: 10/27/2022 , Expires: 12/27/2022 Start: 10-27-2022 End: 12-27-2022 CBC W Auto Differential panel - Blood CBC + DIFF Lab Routine Pre-op testing Expected: 10/27/2022, Expires: 12/27/2022 [facility] Work Phone: Comment on above: Expected: 10/27/2022 , Expires: 12/27/2022 Start: 10-27-2022 End: 12-27-2022 Hemoglobin A1c in Blood HGB A1C Lab Routine Pre-op testing Expected: 10/27/2022, Expires: 12/27/2022 [facility] Work Phone: Comment on above: Expected: 10/27/2022 , Expires: 12/27/2022 Start: 10-27-2022 End: 12-27-2022 Urinalysis complete panel - Urine URINALYSIS, WITH MICROSCOPIC Lab Routine Pre-op testing Expected: 10/27/2022, Expires: 12/27/2022 [facility] Work Phone: Comment on above: Expected: 10/27/2022 , Expires: 12/27/2022 Start: 05-22-2022 ADVANCE DIRECTIVE DISCUSSION ADVANCE DIRECTIVE DISCUSSION [facility] Start: 05-22-2022 DEPRESSION ASSESSMENT DEPRESSION ASS ESSMENT [facility] Start: 04-27-2022 [facility] Start: 02-05-2021 COVID-19 VACCINE (3 - Mixed Product series) COVID-19 VACCINE (3 - Mixed Product series) [facility] Start: 01-20-2021 Influenza vaccination INFLUENZ A (Season Ended) [facility] Start: 01-08-2021 Covid-19 Vaccine (3 - Mixed Product risk series) Covid-19 Vaccine (3 - Mixed Product risk series) [facility] Start: 02-27-2018 [facility]ABET[facility]EN [facility] Start: 02-27-2016 PNEUMOCOCCAL: 65+ (2 - PCV) PNEUMOCOCCAL: 65+ (2 - PCV) [facility] Start: 2011 ADVANCE DIRECTIVE DISCUSSION ADVANCE DIRECTIVE DISCUSSION [facility] Start: 2011 BONE DENSITY BONE DENSITY [facility] Start: 2011 Bone Density Screening Bone Density Screening [facility] Start: 2006 RSV Vaccine (1 - 1-d ose 60+ series) RSV Vaccine (1 - 1-dose 60+ series) [facility] Start: 01-02-1996 Screening for malign ant neoplasm of colon [facility] Start: 01-02-1996 SHINGRIX VACCINE (1 of 2) SHINGRIX VACCINE (1 of 2) [facility] Start: 1991 LIPID SCREEN LIPID SCREEN [facility] Start: 1986 Mammography MAMMOGRAM [facility] Start: 1965 SHINGRIX VACCINE (1 of 2) SHINGRIX VACCINE (1 of 2) [facility] Start: 1965 Urine microalbumin profile [facility] Start: 01-02-1964 ANNUAL PCP TEAM UNDERGROUND PRODUCTION FOREPERSON LILLIAN DISEASE VISIT ANNUAL PCP TEAM CHRONIC DISEASE VISIT [facility] Start: 01-02-1964 HEPATITIS C SCREENING HEPATITIS C SC REETED [facility] Start: 1958 Adult depression screening assessment DEPRESSION SCREENING [facility] Start: 1946 COVID-19 VACCINE (#1) COVID-19 VACCI NE (#1) [facility] Start: 1945 Medicare Annual Wellness (AWV) Medicare Annual Wellness (AWV) [facility] Alkaline phosphatase - bone isoenzyme measurement [facility] Work Phone: Alkaline phosphatase [Enzymatic activity/volume] in Serum or Plasma [facility] Work Phone: Alkaline phosphatase isoenz panel - Serum or Plasma [facility] Work Phone: Intestinal alkaline phosphatase measurement [facility] Work Phone: Patient Education Total Knee Rep lacement (DC) [facility] Work Phone: Patient referral [facility] Work Phone: End: 05-05-2024 XR KNEE POST OP 3V AP/LAT/MERCHANT LEFT XR KNEE POST OP 3V AP/LAT/MERCHANT LEFT Radiology Routine S/P total knee replacement, left 1 Occurrences starting 04/06/2023 until 05/05/2024 [facility] Work Phone: Comment on above: 1 Occurrences starti ng 04/06/2023 until 05/05/2024 XR KNEE POST OP 3V AP/LAT/MERCHANT LEFT XR KNEE POST OP 3V AP/LAT/MERCHANT LEFT Radiology Routine S/P total knee replacement, left 04/17/2023 8:50 AM EST [facility] Work Phone: [facility] c [facility] [facility] Immunizations Immunization Date Immunization Notes Care Provider [facility] 03-31-2022 influenza (HD-IIV4) vaccine, age 65+ yr, high dose, quadrivalent, PF (FLUZONE HIGH-DOSE) [facility] 2 Work Phone: [facility] 03-31-2022 pneumococcal (PCV20) vaccine, 20 valent (PREVNAR 20) Pac 2 Work Phone: [facility] 03-31-2022 influenza virus vacc ine, unspecified formulation Shan Box MD Work Phone: [facility] 03-08-2021 influenza (HD-IIV4) vaccine, age 65+ yr, high dose, quadrivalent, PF (FLUZONE HIGH-DOSE) Pac 2 Work Phone: [facility] 12-11-2020 COVID-19 vaccine, unspecified formulation Pac 2 Work Phone: [facility] 11-13-2020 COVID-19 vaccine, unspecified formulation Pac 2 Work Phone: [facility] 02-24-2020 influenza (aIIV4) vaccine, age 65+ yr, quadrivalent, PF (FLUAD QUAD) Pac 2 Work Phone: [facility] 07-12-2019 zoster vaccine recombinant Pacc 2 Work Phone: [facility] 04-26-2019 pneumococcal conjuga te vaccine, 13 valent Piedra SALAM [facility] 04-10-2019 zoster vaccine recombinant Pacc 2 Work Phone: [facility] 03-08-2019 influenza, high dose seasonal, preservative-free Pacc 2 Work Phone: [facility] 02-23-2018 influenza, high dose seasonal, preservative-free Pacc 2 Work Phone: [facility] 02-27-2017 influenza, injectabl e, quadrivalent, preservative free Pacc 2 Work Phone: [facility] 02-22-2017 influenza, high dose seasonal, preservative-free Pacc 2 Work Phone: [facility] 05-09-2016 influenza, high dose seasonal, preservative-free Pacc 2 Work Phone: [facility] 03-18-2016 influenza, high dose seasonal, preservative-free Pacc 2 Work Phone: [facility] 03-07-2016 pneumococcal conjuga te vaccine, 13 valent Piedra SALAM [facility] 07-06-2015 pneumococcal polysaccharide vaccine, 23 valent Pacc 2 Work Phone: [facility] 02-26-2015 influenza, high dose seasonal, preservative-free Juliana Anderson RN [facility] 02-26-2015 pneumococcal polysaccharide vaccine, 23 valent Juliana Justin RN [facility] 01-07-2015 pneumococcal conjuga te vaccine, 7 valent Pacc 2 Work Phone: [facility] 03-04-2014 influenza, seasonal, injectable Juliana Anderson RN [facility] 03-31-2005 pneumococcal polysaccharide vaccine, 23 valent Piedra SALAM [facility] Payers Date Payer Category Payer Medicare [id number] 2020 Medicare ANTHEM MEDICARE ADVANTAGE [facility] MEDICARE ADVANTAGE [id number] 2020-Present [address] [place] [address] [id number] 2020 Unknown 2010 Medicare [id number] 1959 Self-pay 1959 Unknown [id number] 1946 Unknown [id number] 1946 Unknown [id number] 1946 Unknown [id number] 9 1946 Unknown [id number] 1946 Unknown [id number] 1946 Unknown [id number] Unknown [id number] Unknown [id number] Unknown [id number] Unknown [id number] Social History Date Type Detail Facility Start: 02-02-2015 End: 10-31-2022 Tobacco smoking status DCIS Never smoker [facility] Start: 02-02-2015 End: 10-31-2022 Tobacco use and exposure Never used [facility] Start: 02-02-2015 End: 04-17-2023 Alcohol intake Current non-drinker of alcohol (finding) [facility] Start: 1945 Sex Assigned At Not on file [facility] Tobacco smoking status Never Nilo [facility] Start: 12-23-2022 End: 01-12-2023 Sex Assigned At [facility] Comment on above: pt denies Start: 1945 Sex Assigned At Female F [facility] Tobacco smoking status No Smokin g Status Entered [facility] Start: 12-23-2022 End: 01-12-2023 History of Social function [facility] (I/We) worried whebonita er (my/our) food would run out before (I/we) got money to buy more. Never true [facility] In the past 12 month s, was there a time when you were not able to pay the mortgage or rent on time? No [facility] Start: 01-12-2023 Alcohol intake Ex-drinker (finding) [facility] Medical Equipment Procedure Code Equipment Code Equipment Origin al Text Equipment Identifier Dates Gcn-Tc-P-Kind Implant - [id number] Start: 02-24-2015 Comment on above: Description: G7 ACET ABULAR LINER Gic-Yf-L-Kind Implant - [id number] Start: 02-24-2015 Comment on above: Description: acetabu lar shell 3 hole Xau-Oe-C-Kind Implant - [id number] Start: 02-24-2015 Comment on above: Description: HEALIX ADVANCED SUTURE ANCHOR Gbw-Lc-M-Kind Implant - [id number] Start: 02-24-2015 Comment on above: Description: Healix advance BR 3 suture anchor w permacord Liner Actb Drlc 10d 50mm 28mm - [id number] Start: 06-25-2014 Comment on above: Description: duraloc marathon acetabular liner Ring Actb 50mm Drlc Dyn Hip - [id number] Start: 06-25-2014 Comment on above: Description: dynamic locking ring/duraloc Head Fem +8.5mm 12/14 28mm Hip - [id number] Start: 06-25-2014 Comment on above: Description: articul karon femoral head Stem Fem 142mm Type 1 Complt - [id number] Start: 02-24-2015 Comment on above: Description: coated stem high offset Head Fem -3mm 36 mm Hip No Skrt - [id number] Start: 02-24-2015 Comment on above: Description: modular head 36mm -3 neck {[id number] FDA Start: 05-17-2019 FDA Start: 07-11-2016 [...] conditional. Cond itions scanned into chart.REF # [id number] ID #[id number] Unknown Unknown 07/11/16 Non Biological Chest FDA Start: 07-11-2016 Comment on above: MR Conditional. Cond itions scanned into patient's chart. Unknown Unknown 01/18/17 Non Biological Chest FDA Start: 01-18-2017 Comment on above: MR conditional. Cond itions scanned into chart.REF # [id number] ID #[id number] Unknown Unknown 07/11/16 Non Biological Chest FDA Start: 07-11-2016 Comment on above: MR Conditional. Cond itions scanned into patient's chart. Unknown Unknown 01/18/17 Non Biological Chest FDA Start: 01-18-2017 Comment on above: MR conditional. Cond itions scanned into chart.REF # [id number] ID #[id number] Unknown Unknown 07/11/16 Non Biological Chest FDA Start: 07-11-2016 Comment on above: MR Conditional. Cond itions scanned into patient's chart. Unknown Unknown 01/18/17 Non Biological Chest FDA Start: 01-18-2017 Comment on above: MR conditional. Cond itions scanned into chart.REF # [id number] ID #[id number] Unknown Unknown 07/11/16 Non Biological Chest FDA Start: 07-11-2016 Comment on above: MR Conditional. Cond itions scanned into patient's chart. Unknown Unknown 01/18/17 Non Biological Chest FDA Start: 01-18-2017 Comment on above: MR conditional. Cond itions scanned into chart.REF # [id number] ID #[id number] Unknown Unknown 07/11/16 Non Biological Chest FDA Start: 07-11-2016 Comment on above: MR Conditional. Cond itions scanned into patient's chart. Unknown Unknown 01/18/17 Non Biological Chest FDA Start: 01-18-2017 Comment on above: MR conditional. Cond itions scanned into chart.REF # [id number] ID #[id number] Unknown Unknown 07/11/16 Non Biological Chest FDA Start: 07-11-2016 Comment on above: MR Conditional. Cond itions scanned into patient's chart. Unknown Unknown 01/18/17 Non Biological Chest FDA Start: 01-18-2017 Comment on above: MR conditional. Cond itions scanned into chart.REF # [id number] ID #[id number] Unknown Unknown 07/11/16 Non Biological Chest FDA Start: 07-11-2016 Comment on above: MR Conditional. Cond itions scanned into patient's chart. Unknown Unknown 01/18/17 Non Biological Chest FDA Start: 01-18-2017 Comment on above: MR conditional. Cond itions scanned into chart.REF # [id number] ID #[id number] Unknown Unknown 07/11/16 Non Biological Chest FDA Start: 07-11-2016 Comment on above: MR Conditional. Cond itions scanned into patient's chart. Unknown Unknown 01/18/17 Non Biological Chest FDA Start: 01-18-2017 Comment on above: MR conditional. Cond itions scanned into chart.REF # [id number] ID #[id number] Unknown Unknown 07/11/16 Non Biological Chest FDA Start: 07-11-2016 Comment on above: MR Conditional. Cond itions scanned into patient's chart. Unknown Unknown 01/18/17 Non Biological Chest FDA Start: 01-18-2017 Comment on above: MR conditional. Iván osorio scanned into chart.REF # [id number] ID #[id number] Cement Simplex Bone High Viscosity - [id number] Start: 01-17-2023 Insert Triathlon 3 9mm Tibial Total Stabilizer Plus Sterile Knee - [id number] Start: 01-17-2023 Component Triathlon 3 Femoral Cemented Posterior Stabilize Knee Left - [id number] Start: 01-17-2023 Baseplate Triathlon 3 Scandia Cocr Tibial Total Stabilize Cemented Knee - [id number] Start: 01-17-2023 Goals Date Patient Goal Desired Activity /State Functional Status Date Assessment Result Facility 02-11-2023 Functional status Patient is Pro gressing Toward Baseline [facility] Work Phone: 01-31-2023 Functional status Disability Sta tus Patient Not at Baseline [facility] Work Phone: 05-15-2022 Functional Status No [facility] 05-14-2022 Functional Status [facility] 02-04-2022 Functional Status N/A [facility] Mental Status Date Assessment Result Facility 02-11-2023 Cognitive function Cognitive Sta tus Patient at Baseline [facility] Work Phone: Clinical Notes 03-26-2015 to 08-16-2023 Note Date & Type Note Facility 08-16-2023 Note HNO ID: [id number] Author: SHAN BOX MD Service: ? Author Type: Physician Type: Progress Notes Filed: 08/16/2023 14:43 Note Text: see dictated note Shan Box II, MD [facility] 08-16-2023 Note HNO ID: [id number] Author: SHAN BOX MD Service: Orthopaedic Surgery Author Type: Physician Type: Progress Notes Filed: 08/17/2023 16:42 Note Text: [facility] [address] [place] [address] CLINIC NOTE Department of Orthopaedics - Donnell Box II, M.D. NAME: KIKI MOORE [facility] NO.: [id number] DATE OF SERVICE: 08/16/2023 Left TKR, 01/17/2023 [...] II, M.D. Date Dictated: 08/16/2023 Date Typed: [facility] 08/16/2023 JOB# [id number] [facility] 04-17-2023 Note HNO ID: [id number] Author: Shan Box MD Service: Orthopaedic Surgery Author Type: Physician Type: Progress Notes Filed: 04/18/2023 10:13 AM Note Text: [facility] [address] [facility] [place] [address] CLINIC NOTE Department of Orthopaedics - Donnell Box II, M.D. NAME: KIKI MOORE [facility] NO.: [id number] DATE OF SERVICE: 04/17/2023 Recheck of left [...] II, M.D. Date Dictated: 04/17/2023 Date Typed: [facility] 04/17/2023 JOB# [id number] [facility] 04-17-2023 Note HNO ID: [id number] Author: Karla Vargas RT(R) Service: ? Author [...] RT Jarad(R) April 17, 2023 8:[address] [facility] 03-06-2023 Note HNO ID: [id number] Author: Shan Box MD Service: Orthopaedic Surgery Author Type: Physician Type: Progress Notes Filed: 03/07/2023 11:14 AM Note Text: [facility] [address] [place] [address] CLINIC NOTE Department of Orthopaedics - Donnell Box II, M.D. NAME: KIKI MOORE CLINIC NO.: [id number] DATE OF SERVICE: 03/06/2023 CHIEF COMPLAINT: Recheck [...] II, M.D. Date Dictated: 03/06/2023 Date Typed: [facility] 03/06/2023 JOB# [id number] [facility] 02-11-2023 Progress note Note Date/Time February 10, 2023 4:28pm [facility] EN[facility] [address] [place] [address] Hospitalist Progress Note Signed Patient: Kiki Moore MR#: [id number] : 1945 Acct:[id number] Age/Sex: 78 / F Adm Date: 3 Loc: Room: [address] [place] [address] Type: ADM IN Attending Dr: Syd Muir [...] mg 01/31/23 14:12 Bisacodyl 10 Mg Supp.Rect ND 01/31/24 14:11 DAILY PRN Constipation Brimonidine Tartrate 1 drops 02/01/23 09:00 02/10/23 07:50 Brimonidine 0.15% Op Soln 100 Drops/5 Ml Drops EYE-BOTH 02/01/24 08:59 1 drops DAILY BERTRAND Administration Diclofenac Sodium 2 gm 02/08/23 14:00 02/10/23 13:58 Diclofenac Sodium 1% Gel 50 Gm Tube TOPICAL 02/08/24 13:59 Not Given TID BERTRAND Docusate Sodium 283 mg 01/31/23 14:12 Docusate Enema 283 Mg/5 Ml Enema ND 01/31/24 14:11 DAILY PRN Constipation Docusate Sodium [...] Chronic hyponatremia: Plan Knee replacement 01/17/2023 at [facility] Postoperative anemia -Further POC per PMR [...] signed by Hussein Hung DO> 02/11/23 0714 [facility] Work Phone: 1(995) 187-685109-22-2023 Progress note Author Syd Muir [facility] February 10, 2023 2:47pm Note Date/Time February 10, 2023 2:47pm [facility] [address] [place] [address] Physiatry(Rehab) Progress Note Signed Patient: Kiki Moore MR#: [id number] : 1945 Acct:[id number] Age/Sex: 78 / F Adm Date: 3 Loc: Room: 9Z8745-8 Type: ADM IN Attending Dr: Syd Muir MD Copies to: ~ Date of Service: 02/10/2023 Subjective Subjective Narrative: Ms. Moore is a 78 year old female presenting to acute rehab as a transfer from [facility]. Her past medical history is notable for [...] left total knee on 01/17/2023 at the [facility]. Placed on Xarelto for DVT prophylaxis postop. [...] mg 01/31/23 14:12 Bisacodyl 10 Mg Supp.Rect ND 01/31/24 14:11 DAILY PRN Constipation Brimonidine Tartrate 1 drops 02/01/23 09:00 02/10/23 07:50 Brimonidine 0.15% Op Soln 100 Drops/5 Ml Drops EYE-BOTH 02/01/24 08:59 1 drops DAILY BERTRAND Administration Diclofenac Sodium 2 gm 02/08/23 14:00 02/10/23 13:58 Diclofenac Sodium 1% Gel 50 Gm Tube TOPICAL 02/08/24 13:59 Not Given TID BERTRAND Docusate Sodium 283 mg 01/31/23 14:12 Docusate Enema 283 Mg/5 Ml Enema ND 01/31/24 14:11 DAILY PRN Constipation Docusate Sodium [...] arthroplasty on 01/17/2023. Initially admitted to a assisted facility but failed to improve functionally and [...] equipment to enhance the patient's a functional yarsanism Ensure adequate nutrition and hydration Sleep: No concerns Pain: Continue current regimen Discharge planning: Home in AM. I spent greater than 25 minutes for services, including gsga-tp-pyjg encounter with the patient, discussion of the case, plan of care, and exam; and rauskem-qo-rypa activities, such as reviewing pertinent industrial rehabilitation consultant documentation, recent therapy notes, laboratory and radiology studies, and discussion of case with care team including physician, nursing, case investigator, and therapists. More than 50 % of time was spent on patient/family counseling or coordination ofcare. Documented By: Syd Muir MD 02/10/231444 Signed By: <Electronically signed by Syd Muir MD> 02/10/231446 [facility] Work Phone: 1(544) 713-868109-22-2023 Progress note Author Syd Muir [facility] February 10, 2023 11:17am Note Date/Time February 09, 2023 2:00pm [facility] [address] [place] [address] Physiatry(Rehab) Progress Note Signed Patient: Kiki Moore MR#: [id number] : 1945 Acct:[id number] Age/Sex: 78 / F Adm Date: 3 Loc: Room: [address] [place] [address] Type: ADM IN Attending Dr: Syd Muir MD Copies to: ~ <Sofya Petit APRN - Last Filed: 02/09/23 14:08> Date of Service: 02/09/2023 Subjective <Sofya Petit APRN - Last Filed: 02/09/23 14:08> Subjective Narrative: Ms. Moore is a 78 year old female presenting to acute rehab as a transfer from [facility]. Her past medical history is notable for [...] left total knee on 01/17/2023 at the [facility]. Placed on Xarelto for DVT prophylaxis postop. [...] mg 01/31/23 14:12 Bisacodyl 10 Mg Supp.Rect ND 01/31/24 14:11 DAILY PRN Constipation Brimonidine Tartrate [...] 14:12 Docusate Enema 283 Mg/5 Ml Enema ND 01/31/24 14:11 DAILY PRN Constipation Docusate Sodium [...] mcg DAILY BERTRAND Administration Assessment/Plan <Sofya Petit, EMERGENCY RESPONSE OFFICER - Last Filed: 02/09/23 14:08> Assessment/Plan (1) [...] arthroplasty on 01/17/2023. Initially admitted to a assisted facility but failed to improve functionally and [...] equipment to enhance the patient's a functional yarsanism Ensure adequate nutrition and hydration Sleep: No concerns Pain: Continue current regimen Discharge planning: Hopefully home this weekend, pending FI. I spent greater than 15 minutes for services, including ndnz-pu-wyjq encounter with the patient, discussion of the case, plan of care, and exam; and ctvszbu-ik-cjrp activities, such as reviewing pertinent industrial rehabilitation consultant documentation, recent therapy notes, laboratory and radiology studies, and discussion of case with care team including physician, nursing, case investigator, and therapists. More than 50 % of [...] chart, including currentorders, allied health and industrial rehabilitation consultant notes, labs/imaging and plan of care as above. Documented By: Sofya Petit APRN 02/09/23 1 356 Signed By: <Electronically signed by TRAY Petit> 02/09/23 1408 <Electronically signed by Syd Muir MD> 02/10/23 7295 [facility] Work Phone: 1(733) 290-886209-22-2023 NoteHNO ID: [id number] Author: Judit Jarrell PA-C Service: ? 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09-22-2023 NoteHNO ID: [id number] Author: Madeline Reese RT(R) Service: ? Author [...] RT Margy(R) February 10, 2023 10:29 [facility]09-20-2023 Hospital Discharge instructionsAmbulatory Orders* Initiate [...] skin breakdown. Your Home Health agency is [facility] ( ). They will contact you 24-48 [...] office to inform them prior to your appointment.[facility] Work Phone: 1(348) 525-424009-20-2023 Progress note Author Syd Muir [facility] February 08, 2023 11:44am Note Date/Time February 08, 2023 11:44am [facility] [address] [place] [address] Physiatry(Rehab) Progress Note Signed Patient: Kiki Moore MR#: [id number] : 1945 Acct:[id number] Age/Sex: 78 / F Adm Date: 3 Loc: Room: 4T7315-4 Type: ADM IN Attending Dr: Syd Muir MD Copies to: ~ Date of Service: 02/08/2023 Subjective Subjective Narrative: Ms. Moore is a 78 year old female presenting to acute rehab as a transfer from [facility]. Her past medical history is notable for [...] left total knee on 01/17/2023 at the [facility]. Placed on Xarelto for DVT prophylaxis postop. [...] mg 01/31/23 14:12 Bisacodyl 10 Mg Supp.Rect ND 01/31/24 14:11 DAILY PRN Constipation Brimonidine Tartrate 1 drops 02/01/23 09:00 02/08/23 08:14 Brimonidine 0.15% Op Soln 100 Drops/5 Ml Drops EYE-BOTH 02/01/24 08:59 1 drops DAILY BERTRAND Administration Docusate Sodium 283 mg 01/31/23 14:12 Docusate Enema 283 Mg/5 Ml Enema ND 01/31/24 14:11 DAILY PRN Constipation Docusate Sodium [...] arthroplasty on 01/17/2023. Initially admitted to a assisted facility but failed to improve functionally and was transferred to us. * Check venous duplex, increased pain and swelling * Topical modalities to left wrist IV infiltation site. * Ambulatory 75' and able to do some stairs, encourage more independence in room * Ortho appt 02/10 at [facility] Patient education Pressure ulcer prophylaxis; encourage [...] equipment to enhance the patient's a functional yarsanism Ensure adequate nutrition and hydration Sleep: No concerns Pain: Continue current regimen Discharge planning: Hopefully home this weekend, pending FI. Plan: I completed a substantive portion of this encounter, the medical decision makingportion of this note in its entirety, including Allied health note review, nursing note review, industrial rehabilitation consultant note review, discussion with nursing and case management, and more than 50% of my time was spent on counseling and coordination of care, time spent 35 minutes Patient was personally seen by me, Dr. Muir, on the day of encounter, reviewed the history and the relevant portions of the chart, including current orders, allied health and industrial rehabilitation consultant notes, labs/imaging and performed carranza elements of exam and I formulated the plan of care and facilitated the medical decision making. Documented By: Syd Muir MD 02/08/23 1142 Signed By: <Electronically signed by Syd Muir MD> 02/08/23 1147 [facility] Work Phone: 1(921) 832-669009-19-2023 Progress note Author Syd Muir [facility] February 07, 2023 11:45am Note Date/Time February 07, 2023 11:45am [facility] [address] [place] [address] Physiatry(Rehab) Progress Note Signed Patient: Kiki Moore MR#: [id number] : 1945 Acct:[id number] Age/Sex: 78 / F Adm Date: 3 Loc: Room: 3N0289-1 Type: ADM IN Attending Dr: Syd Muir MD Copies to: ~ Date of Service: 02/07/2023 Subjective Subjective Narrative: Ms. Moore is a 78 year old female presenting to acute rehab as a transfer from [facility]. Her past medical history is notable for [...] left total knee on 01/17/2023 at the [facility]. Placed on Xarelto for DVT prophylaxis postop. [...] % (Auto) 65.9 Lymph % (Auto) 17.4 [place] % (Auto) 15.5 Eos % (Auto) 0.8 Baso % (Auto) 0.4 Nucleat RBC Rel Count 0.1 Neut # (Auto) 5.2 Lymph # (Auto) 1.4 [place] # (Auto) 1.2 H Eos # (Auto) [...] mg 01/31/23 14:12 Bisacodyl 10 Mg Supp.Rect ND 01/31/24 14:11 DAILY PRN Constipation Brimonidine Tartrate 1 drops 02/01/23 09:00 02/07/23 08:22 Brimonidine 0.15% Op Soln 100 Drops/5 Ml Drops EYE-BOTH 02/01/24 08:59 1 drops DAILY BERTRAND Administration Docusate Sodium 283 mg 01/31/23 14:12 Docusate Enema 283 Mg/5 Ml Enema ND 01/31/24 14:11 DAILY PRN Constipation Docusate Sodium [...] Tablet.Dr CORONA 09/13/24 09:59 40 mg DAILY BERTRAND Administration Prednisone [...] arthroplasty on 01/17/2023. Initially admitted to a assisted facility but failed to improve functionally and was transferred to us. * Improving * Ambulatory 75' and able to do some stairs, encourage more independence in room * Ortho appt 02/09 at [facility] Patient education Pressure ulcer prophylaxis; encourage [...] equipment to enhance the patient's a functional yarsanism Ensure adequate nutrition and hydration Sleep: No concerns Pain: Continue current regimen Discharge planning: Hopefully home this weekend, pending FI. Plan: I completed a substantive portion of this encounter, the medical decision makingportion of this note in its entirety, including Allied health note review, nursing note review, industrial rehabilitation consultant note review, discussion with nursing and case management, and more than 50% of my time was spent on counseling and coordination of care, time spent 25 minutes Patient was personally seen by me, Dr. Muir, on the day of encounter, reviewed the history and the relevant portions of the chart, including current orders, allied health and industrial rehabilitation consultant notes, labs/imaging and performed carranza elements of exam and I formulated the plan of care and facilitated the medical decision making. Documented By: Syd Muir MD 02/07/23 114 Signed By: <Electronically signed by Syd Muir MD> 02/07/23 1145 [facility] Work Phone: 1(207) 247-327309-18-2023 Progress note Author Syd Muir [facility] February 06, 2023 12:26pm Note Date/Time February 06, 2023 12:27pm [facility] [address] [place] [address] Physiatry(Rehab) Progress Note Signed Patient: Kiki Moore MR#: [id number] : 1945 Acct:[id number] Age/Sex: 78 / F Adm Date: 3 Loc: 5T Room: 5L3123-0 Type: ADM IN Attending Dr: Syd Muir MD Copies to: ~ Date of Service: 02/06/2023 Subjective Subjective Narrative: Ms. Moore is a 78 year old female presenting to acute rehab as a transfer from [facility]. Her past medical history is notable for [...] left total knee on 01/17/2023 at the [facility]. Placed on Xarelto for DVT prophylaxis postop. [...] mg 01/31/23 14:12 Bisacodyl 10 Mg Supp.Rect ND 01/31/24 14:11 DAILY PRN Constipation Brimonidine Tartrate 1 drops 02/01/23 09:00 02/06/23 09:44 Brimonidine 0.15% Op Soln 100 Drops/5 Ml Drops EYE-BOTH 02/01/24 08:59 1 drops DAILY BERTRAND Administration Docusate Sodium 283 mg 01/31/23 14:12 Docusate Enema 283 Mg/5 Ml Enema ND 01/31/24 14:11 DAILY PRN Constipation Docusate Sodium [...] arthroplasty on 01/17/2023. Initially admitted to a assisted facility but failed to improve functionally and [...] equipment to enhance the patient's a functional yarsanism Ensure adequate nutrition and hydration Sleep: No concerns Pain: Continue current regimen Discharge planning: Hopefully home this weekend. Plan: I completed a substantive portion of this encounter, the medical decision makingportion of this note in its entirety, including Allied health note review, nursing note review, industrial rehabilitation consultant note review, discussion with nursing and case management, and more than 50% of my time was spent on counseling and coordination of care, time spent 45 minutes Patient was personally seen by me, Dr. Muir, on the day of encounter, reviewed the history and the relevant portions of the chart, including current orders, allied health and industrial rehabilitation consultant notes, labs/imaging and performed carranza elements of exam and I formulated the plan of care and facilitated the medical decision making. Documented By: Syd Muir MD 02/06/23 7198 Signed By: <Electronically signed by Syd Muir MD> 02/06/23 6796 [facility] Work Phone: 1(950) 898-361209-18-2023 Progress note Author Syd Muir [facility] February 06, 2023 12:24pm Note Date/Time February 04, 2023 11:17am [facility] [address] [place] [address] Physiatry(Rehab) Progress Note Signed Patient: Kiki Moore MR#: [id number] : 1945 Acct:[id number] Age/Sex: 78 / F Adm Date: 3 Loc: Room: 0C4151-1 Type: ADM IN Attending Dr: Syd Muir MD Copies to: ~ <Sofya Petit APRN - Last Filed: 02/04/23 11:17> Date of Service: 02/04/2023 Subjective <Sofya Petit APRN - Last Filed: 02/04/23 11:17> Subjective Narrative: Ms. Moore is a 78 year old female presenting to acute rehab as a transfer from [facility]. Her past medical history is notable for [...] left total knee on 01/17/2023 at the [facility]. Placed on Xarelto for DVT prophylaxis postop. [...] if the imaging could be performed at [facility] and faxed over to surgeons office. Review [...] affect appropriate. Normal speech. Objective <Sofya Petit, EMERGENCY RESPONSE OFFICER - Last Filed: 02/04/23 11:17> Labs 02/04/23 05:13 02/02/23 05:54 Labs: Laboratory Results - last 24 hr 02/04/23 05:13 Corrected WBC 6.3 Uncorrected WBC Count 6.3 RBC 2.58 L Hgb 8.7 L Hct 25.4 L MCV 98.3 MCH 33.5 MCHC 34.0 RDW 14.7 Plt Count 235 MPV 6.6 Neut % (Auto) 65.0 Lymph % (Auto) 17.4 [place] % (Auto) 14.2 Eos % (Auto) 2.9 Baso % (Auto) 0.5 Nucleat RBC Rel Count 0.1 Neut # (Auto) 4.1 Lymph # (Auto) 1.1 [place] # (Auto) 0.9 H Eos # (Auto) [...] mg 01/31/23 14:12 Bisacodyl 10 Mg Supp.Rect ND 01/31/24 14:11 DAILY PRN Constipation Brimonidine Tartrate 1 drops 02/01/23 09:00 02/04/23 09:20 Brimonidine 0.15% Op Soln 100 Drops/5 Ml Drops EYE-BOTH 02/01/24 08:59 1 drops DAILY BERTRAND Administration Docusate Sodium 283 mg 01/31/23 14:12 Docusate Enema 283 Mg/5 Ml Enema ND 01/31/24 14:11 DAILY PRN Constipation Docusate Sodium [...] arthroplasty on 01/17/2023. Initially admitted to a assisted facility but failed to improve functionally and [...] equipment to enhance the patient's a functional yarsanism Ensure adequate nutrition and hydration Sleep: No concerns Pain: Continue current regimen Discharge planning: Hopefully home in a week or two. I spent greater than 15 minutes for services, including [id number] encounter with the patient, discussion of the case, plan of care, and exam; and [id number]-ys-[id number] activities, such as reviewing pertinent industrial rehabilitation consultant documentation, recent therapy notes, laboratory and radiology studies, and discussion of case with care team including physician, nursing, case investigator, and therapists. More than 50 % of [...] chart, including currentorders, allied health and industrial rehabilitation consultant notes, labs/imaging and plan of care as above. Documented By: Sofya Petit APRN 02/04/23 1 111 Signed By: <Electronically signed by TRAY Petit> 02/04/23 1117 <Electronically signed by Syd Muir MD> 02/06/23 1224 [facility] Work Phone: 1(361) 209-207209-18-2023 Progress note Author Syd Muir [facility] February 06, 2023 12:23pm Note Date/Time February 02, 2023 2:09pm [facility] [address] [place] [address] Physiatry(Rehab) Progress Note Signed Patient: Kiki Moore MR#: [id number] : 1945 Acct:[id number] Age/Sex: 78 / F Adm Date: 3 Loc: Room: 5B9134-1 Type: ADM IN Attending Dr: Syd Muir MD Copies to: ~ <Sofya Petit APRN - Last Filed: 02/02/23 14:13> Date of Service: 02/02/2023 Subjective <Sofya Petit APRN - Last Filed: 02/02/23 14:13> Subjective Narrative: Ms. Moore is a 78 year old female presenting to acute rehab as a transfer from [facility] assisted facility. Her past medical history is notable [...] left total knee on 01/17/2023 at the [facility]. Placed on Xarelto for DVT prophylaxis postop. [...] MPV Neut % (Auto) Lymph % (Auto) [place] % (Auto) Eos % (Auto) Baso % (Auto) Nucleat RBC Rel Count Neut # (Auto) Lymph # (Auto) [place] # (Auto) Eos # (Auto) Baso # [...] % (Auto) 74.0 Lymph % (Auto) 13.6 [place] % (Auto) 10.9 Eos % (Auto) 1.2 Baso % (Auto) 0.3 Nucleat RBC Rel Count 0.2 Neut # (Auto) 4.3 Lymph # (Auto) 0.8 L [place] # (Auto) 0.6 Eos # (Auto) 0.1 [...] MPV Neut % (Auto) Lymph % (Auto) [place] % (Auto) Eos % (Auto) Baso % (Auto) Nucleat RBC Rel Count Neut # (Auto) Lymph # (Auto) [place] # (Auto) Eos # (Auto) Baso # [...] mg 01/31/23 14:12 Bisacodyl 10 Mg Supp.Rect ND 01/31/24 14:11 DAILY PRN Constipation Brimonidine Tartrate 1 drops 02/01/23 09:00 02/02/23 09:05 Brimonidine 0.15% Op Soln 100 Drops/5 Ml Drops EYE-BOTH 02/01/24 08:59 1 drops DAILY BERTRAND Administration Docusate Sodium 283 mg 01/31/23 14:12 Docusate Enema 283 Mg/5 Ml Enema ND 01/31/24 14:11 DAILY PRN Constipation Docusate Sodium [...] Tablet PO 01/31/24 20:59 200 mg BID BRETRAND Administration Ferric Sodium Gluconate 270 mls @ [...] arthroplasty on 01/17/2023. Initially admitted to a assisted facility but failed to improve functionally and [...] equipment to enhance the patient's a functional yarsanism Ensure adequate nutrition and hydration Sleep: No concerns Pain: Continue current regimen Discharge planning: Hopefully home in a week or two. I spent greater than 15 minutes for services, including [id number]-[id number] encounter with the patient, discussion of the case, plan of care, and exam; and krlbjip-ud-enue activities, such as reviewing pertinent industrial rehabilitation consultant documentation, recent therapy notes, laboratory and radiology studies, and discussion of case with care team including physician, nursing, case investigator, and therapists. More than 50 % of [...] health note review, nursing note review, industrial rehabilitation consultant note review, discussion with nursing and case management, and more than 50% of my time was spent on counseling and coordination of care, time spent 25 minutes Patient was personally seen by me, Dr. Muir, on the day of encounter, reviewed the history and the relevant portions of the chart, including current orders, allied health and industrial rehabilitation consultant notes, labs/imaging and performed carranza elements of exam and I formulated the plan of care and facilitated the medical decision making. Complete oral antibiotics for surgical site/postop wound infection. Transfuse 2 units PRBCs. Documented By: Sofya Petit APRN 02/02/23 1 403 Signed By: <Electronically signed by TRAY Petit> 02/02/23 1413 <Electronically signed by Syd Muir MD> 02/06/23 1223 [facility] Work Phone: 1(515) 123-195209-18-2023 History and physical note Author Syd Muir [facility] February 06, 2023 12:22pm Note Date/Time February 01, 2023 10:24am [facility] [address] [place] [address] Physiatry (Rehab) H&P Signed with Addenda Patient: Kiki Moore MR#: [id number] : 1945 Acct:[id number] Age/Sex: 78 / F Adm Date: 3 Loc: Room: [address] [place] [address] Type: ADM IN Attending Dr: Syd Muir [...] to acute rehab as a transfer from [facility]. Her past medical history is notable for [...] left total knee on 01/17/2023 at the [facility]. Placed on Xarelto for DVT prophylaxis postop. [...] Bisacodyl (Bisacodyl 10 Mg Supp.Rect) 10 mg ND DAILY PRN PRN Reason: Constipation Stop: 01/31/24 [...] Enema 283 Mg/5 Ml Enema) 283 mg ND DAILY PRN PRN Reason: Constipation Stop: 01/31/24 [...] Drops/2.5 Ml Bottle) 1 drops EYE-BOTH QPM [facility] Stop: 01/31/24 20:59 Last Admin: 01/31/23 20:05 Dose: 1 drops Levofloxacin (Levofloxacin 750 Mg Tablet) 750 mg PO DAILY [facility] Stop: 02/05/23 09:00 Lisinopril (Lisinopril 40 Mg Tablet) 40 mg PO DAILY [facility] Stop: 02/01/24 08:59 Last Admin: 02/01/23 09:21 [...] (1,000 Units) Tablet) 50 mcg PO DAILY [facility] Stop: 02/01/24 08:59 Last Admin: 02/01/23 09:21 [...] 14 days Expected Discharge Destination: Home Rehabilitation [facility]: [id number] Primary Diagnosis: Total knee arthroplasty [...] 24 hour daily monitoring and intervention from [employer] as well as other consulting physicians including internal medicine as well as 24 hour daily director of food and beverage services nursing - for medical safe / optimal [...] oriented plan of care Assessment/Plan <Sofya Petit, EMERGENCY RESPONSE OFFICER - Last Filed: 02/01/23 11:20> (1) Impaired [...] arthroplasty on 01/17/2023. Initially admitted to a assisted facility but failed to improve functionally and [...] equipment to enhance the patient's a functional yarsanism Ensure adequate nutrition and hydration Sleep: No concerns Pain: Continue current regimen Discharge planning: Hopefully home in a week or two. I spent greater than 45 minutes for services, including ezvt-fj-stjz encounter with the patient, discussion of the case, plan of care, and exam; and yxijiax-wq-rjgn activities, such as reviewing pertinent industrial rehabilitation consultant documentation, recent therapy notes, laboratory and radiology studies, and discussion of case with care team including physician, nursing, case investigator, and therapists. More than 50 % of [...] health note review, nursing note review, industrial rehabilitation consultant note review, discussion with nursing and case management, and more than 50% of my time was spent on counseling and coordination of care, time spent -75 minutes Patient was personally seen by me, Dr. Muir, on the day of encounter, reviewed the history and the relevant portions of the chart, including current orders, allied health and industrial rehabilitation consultant notes, labs/imaging and performed carranza elements of exam and I formulated the plan of care and facilitated the medical decision making. Documented By: Sofya Petit APRN 02/01/23 1 016 Signed By: <Electronically signed by TRAY Petit> 02/01/23 1120 <Electronically signed by Syd Muir MD> 02/01/23 1155 [facility] Work Phone: 1(692) 565-998009-15-2023 Progress note Author Brennan Bucio [facility] February 03, 2023 1:59pm Note Date/Time February 03, 2023 1:58pm [facility] [address] [place] [address] Physiatry(Rehab) Progress Note Signed Patient: Kiki Moore MR#: [id number] : 1945 Acct:[id number] Age/Sex: 78 / F Adm Date: 3 Loc: Room: [address] [place] [address] Type: ADM IN Attending Dr: Syd Muir MD Copies to: ~ Date of Service: 02/03/2023 Subjective Subjective Narrative: Ms. Moore is a 78 year old female presenting to acute rehab as a transfer from [facility]. Her past medical history is notable for [...] left total knee on 01/17/2023 at the [facility]. Placed on Xarelto for DVT prophylaxis postop. [...] % (Auto) 65.2 Lymph % (Auto) 18.6 [place] % (Auto) 12.3 Eos % (Auto) 3.4 Baso % (Auto) 0.5 Nucleat RBC Rel Count 0.1 Neut # (Auto) 4.4 Lymph # (Auto) 1.2 [place] # (Auto) 0.8 Eos # (Auto) 0.2 [...] mg 01/31/23 14:12 Bisacodyl 10 Mg Supp.Rect ND 01/31/24 14:11 DAILY PRN Constipation Brimonidine Tartrate 1 drops 02/01/23 09:00 02/03/23 09:45 Brimonidine 0.15% Op Soln 100 Drops/5 Ml Drops EYE-BOTH 02/01/24 08:59 1 drops DAILY BERTRAND Administration Docusate Sodium 283 mg 01/31/23 14:12 Docusate Enema 283 Mg/5 Ml Enema ND 01/31/24 14:11 DAILY PRN Constipation Docusate Sodium [...] Sodium IV 02/04/23 09:01 Infused Chloride QAM [facility] Infusion Lactulose 30 gm 01/31/23 14:12 02/01/23 [...] arthroplasty on 01/17/2023. Initially admitted to a assisted facility but failed to improve functionally and [...] equipment to enhance the patient's a functional yarsanism Ensure adequate nutrition and hydration Sleep: No concerns Pain: Continue current regimen Discharge planning: Hopefully home in a week or two. Plan: I completed a substantive portion of this encounter, the medical decision makingportion of this note in its entirety, including Allied health note review, nursing note review, industrial rehabilitation consultant note review, discussion with nursing and case management, and more than 50% of my time was spent on counseling and coordination of care, time spent 25 minutes Patient was personally seen by me, Dr. Bucio, on the day of encounter, reviewed the history and the relevant portions of the chart, including current orders, allied health and industrial rehabilitation consultant notes, labs/imaging and performed carranza elements of exam and I formulated the plan of care and facilitated the medical decision making. Documented By: Brennan Bucio MD [id number] Signed By: <Electronically signed by Brennan Bucio MD> 02/03/23 1359 [facility] Work Phone: 1(275) 214-182209-15-2023 Progress note Author Will Brown [facility] February 03, 2023 12:51pm Note Date/Time February 03, 2023 12:51pm [facility] [address] [place] [address] Hospitalist Progress Note Signed Patient: Kiki Moore MR#: [id number] : 1945 Acct:[id number] Age/Sex: 78 / F Adm Date: 3 Loc: Room: [address] [place] [address] Type: ADM IN Attending Dr: Syd Muir MD Copies to: ~ Date of Service: 02/03/2023 Subjective Subjective Narrative: This is a 78-year-old male past medical history significant for CVA, history DVT, anemia, glaucoma, hypertension, rheumatoid arthritis, pulmonary hypertension, CKD, multiple previous joint surgeries including hip and knee revisions. Presents transferred to the acute inpatient rehab unit from [facility]. The patient recently underwent left total knee January 17 at [facility]. While at assisted facility she developed left knee swelling and pain requiring as well as incisional drainage, levofloxacin was initiated. Patient was transferred to [facility] rehab January 31 after familyrequested transfer to [...] mg 01/31/23 14:12 Bisacodyl 10 Mg Supp.Rect ND 01/31/24 14:11 DAILY PRN Constipation Brimonidine Tartrate 1 drops 02/01/23 09:00 02/03/23 09:45 Brimonidine 0.15% Op Soln 100 Drops/5 Ml Drops EYE-BOTH 02/01/24 08:59 1 drops DAILY BERTRAND Administration Docusate Sodium 283 mg 01/31/23 14:12 Docusate Enema 283 Mg/5 Ml Enema ND 01/31/24 14:11 DAILY PRN Constipation Docusate Sodium [...] Chronic hyponatremia: Plan Knee replacement 01/17/2023 at [facility] Postoperative anemia -Further POC per PMR team for rehabilitative therapy postop, pain control bowel regimen, DVT PPx, surgical wound care -Please address any questions/concerns postoperatively to [facility] orthopedic team -Continue Levaquin as previously [...] PCP and out patient providers to obtain [facility] record entirely to follow up on illnesses, symptoms, abnormal findings that I have and have not addressed duringthis encounter and hospitalization in out patient setting.. Documented By: Will Brown MD 02/03/23 1248 Signed By: <Electronically signed by Will Brown MD> 02/03/23 1251 [facility] Work Phone: 1(900) 965-744809-14-2023 Progress note Author Will Brown [facility] February 02, 2023 9:51am Note Date/Time February 02, 2023 9:51am [facility] [address] [place] [address] Hospitalist Progress Note Signed Patient: Kiki Moore MR#: [id number] : 1945 Acct:[id number] Age/Sex: 78 / F Adm Date: 3 Loc: Room: 2Y3851-6 Type: ADM IN Attending Dr: Syd Muir MD Copies to: ~ Date of Service: 02/02/2023 Subjective Subjective Narrative: This is a 78-year-old male past medical history significant for CVA, history DVT, anemia, glaucoma, hypertension, rheumatoid arthritis, pulmonary hypertension, CKD, multiple previous joint surgeries including hip and knee revisions. Presents transferred to the acute inpatient rehab unit from [facility]. The patient recently underwent left total knee January 17 at [facility]. While at assisted facility she developed left knee swelling and pain requiring as well as incisional drainage, levofloxacin was initiated. Patient was transferred to [facility] rehab January 31 after familyrequested transfer to [...] mg 01/31/23 14:12 Bisacodyl 10 Mg Supp.Rect ND 01/31/24 14:11 DAILY PRN Constipation Brimonidine Tartrate 1 drops 02/01/23 09:00 02/02/23 09:05 Brimonidine 0.15% Op Soln 100 Drops/5 Ml Drops EYE-BOTH 02/01/24 08:59 1 drops DAILY BERTRAND Administration Docusate Sodium 283 mg 01/31/23 14:12 Docusate Enema 283 Mg/5 Ml Enema ND 01/31/24 14:11 DAILY PRN Constipation Docusate Sodium [...] signed by Will Brown MD> 02/02/23 0951 [facility] Work Phone: 1(646) 830-237909-14-2023 Consult note Author Will Brown [facility] February 02, 2023 7:33am Note Date/Time February 01, 2023 1:31pm [facility] ENTER [address] [place] [address] Hospitalist Consult Note Signed Patient: Kiki Moore MR#: [id number] : 1945 Acct:[id number] Age/Sex: 78 / F Adm Date: 3 Loc: Room: 1K7604-6 Type: ADM IN Attending Dr: Syd Muir MD Copies to: MD Ivy Restrepo, ANP-[facility] FAMILY PHYSICIAN Will Brown MD~ HPI DATE OF CONSULTATION: 02/01/23 REQUESTING PROVIDER: Syd Muir Consult Narrative Reason for Consult: Hypertension HPI: This is a 78-year-old male past medical history significant for CVA, history DVT, anemia, glaucoma, hypertension, rheumatoid arthritis, pulmonary hypertension, CKD, multiple previous joint surgeries including hip and knee revisions. Presents transferred to the acute inpatient rehab unit from [facility]. The patient recently underwent left total knee January 17 at [facility]. While at assisted facility she developed left knee swelling and pain requiring as well as incisional drainage, levofloxacin was initiated. Patient was transferred to [facility] rehab January 31 after familyrequested transfer to [...] negative unless noted below or in HPI [facility] Medical History (Updated 02/01/23 @ 16:09 by [...] mg 01/31/23 14:12 Bisacodyl 10 Mg Supp.Rect ND 01/31/24 14:11 DAILY PRN Constipation Brimonidine Tartrate 1 drops 02/01/23 09:00 02/01/23 09:21 Brimonidine 0.15% Op Soln 100 Drops/5 Ml Drops EYE-BOTH 02/01/24 08:59 1 drops DAILY BERTRAND Administration Docusate Sodium 283 mg 01/31/23 14:12 Docusate Enema 283 Mg/5 Ml Enema ND 01/31/24 14:11 DAILY PRN Constipation Docusate Sodium [...] signed by Will Brown MD> 02/02/23 0733 [facility] Work Phone: 1(592) 459-919208-31-2023 NoteHNO ID: [id number] Author: Jocelyn Kuo RN Service: ? Author Type: Registered Nurse Type: Nursing Progress Note Filed: 01/19/2023 4:59 PM Note Text: [id number] Report called to Vianney at [facility] 01-19-2023 NoteHNO ID: [id number] Author: Catalina Campbell RN Service: Care Management Author Type: Registered Nurse Type: Care Mgt Progress Note Filed: 01/19/2023 12:52 PM Note Text: CARE MANAGEMENT DISCHARGE NOTE SERVICE DATE: January 19, 2023 SERVICE TIME: 12:51 PM Admission Date: 01/17/2023 LOS: 0 days Discharge Arrangement [facility] Provider Name: Cinda Coronel Caregiver Assessment Caregiver is ready, willing and able to meet the patient's needs as recommended by the inter-professional team: No Caregiver needed Transportation Arrangements Transportation Arrangements: Ambulance Transportation Agency and Phone #:: [facility] [phone] Date of Trip: 01/19/23 Time of Trip: 1600 Type of Service: BLS Non-emergency Is Patient Medicaid Pending?: No Was transportation financial coverage discussed with family?: Patient Internal Combustion Engine Inspector Location: [place] Destination: [facility] Financial Care Management Responsibility: None Additional Information: Patient being dc'd to [facility]. Discharge Information Row Name Admission (Current) from 01/17/[address] Facility Agency [facility] SIGNATURE: Catalina Campbell RN PATIENT NAME: Kiki Moore DATE: January 19, 2023 TIME: 12:51 PM CONTACT #: [id number] History of Past illness Narrative* Problem Noted Date Diagnosed Date Resolved Date Hypomagnesemia 01/19/2023 01/19/2023 KAMI (acute kidney injury) 01/18/2023 Hyperkalemia 01/18/2023 01/19/2023 documented as of this encounter (statuses as of 03/07/2023) [facility]08-31-2023 History of Past illness Narrative* Problem Noted Date Diagnosed Date Resolved Date Hypomagnesemia 01/19/2023 01/19/2023 KAMI (acute kidney injury) 01/18/2023 Hyperkalemia 01/18/2023 01/19/2023 documented as of this encounter (statuses as of 04/17/2023) [facility]08-31-2023 NoteHNO ID: [id number] Author: Gaby Solorzano PA-C Service: Orthopaedic Surgery Author Type: Physician Weight Caller Type: Progress Notes Filed: 01/19/2023 11:18 AM [...] disease of pelvic region Stroke ([facility]) Dvt of Popliteal Vein ([facility]) S/P Patent Foramen Ovale Closure Hypertension Pulmonary Hypertension ([facility]) Primary Osteoarthritis of Left Knee Obesity, Class I, Bmi 30-34.9 Status Post Total Left Knee Replacement Kami (Acute Kidney Injury) ([facility]) Hyponatremia Hyperkalemia S/P Total Knee Arthroplasty, Left Hypomagnesemia Medication and Non-Pharmacologic VTE Prophylaxis/Anticoagulants Anticoagulant AND Antiplatelet Medications (From admission, onward) Start Dose Route Frequency Last Action Ordered Stop 01/18/23 0900 rivaroxaban 10 mg tab(s) (XARELTO) (Surgical Risk Categories) 10 mg ORAL DAILY Given, 01/19 0938 01/17/23 1616 01/30/23 0859 01/18/23 0000 graduated compression stockings (ks,oh) 01/17/23 1630 graduated compression stockings (ks,oh) 01/17/23 1630 activity - mobilize patient (ks,oh) VTE Prophylaxis: VTE prophylaxis appropriate POST OPERATIVE COMPLICATIONS: Complicated by: uneventful/none I spent a total of 35 minutes on the date of the service which included ggry-qp-nbdy patient care, completing clinical documentation, obtaining and/or reviewing separately obtained history, and performing a medically appropriate examination. 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 Stroke ([facility]) Dvt of Popliteal Vein ([facility]) S/P Patent Foramen Ovale Closure Hypertension Pulmonary Hypertension ([facility]) Primary Osteoarthritis of Left Knee Obesity, Class I, Bmi 30-34.9 Status Post Total Left Knee Replacement Kami (Acute Kidney Injury) ([facility]) Hyponatremia Hyperkalemia Medication and Non-Pharmacologic VTE Prophylaxis/Anticoagulants Anticoagulant AND Antiplatelet Medications (From admission, onward) Start Dose Route Frequency Last Action Ordered Stop 01/18/23 0900 rivaroxaban 10 mg tab(s) (XARELTO) (Surgical Risk Categories) 10 mg ORAL DAILY Given, 01/18 1008 01/17/23 1616 01/30/23 0859 01/18/23 0000 graduated compression stockings ([place]) 01/17/23 1630 graduated compression stockings ([place]) 01/17/23 1630 activity - mobilize patient ([place]) VTE Prophylaxis: VTE prophylaxis appropriate POST OPERATIVE COMPLICATIONS: Complicated by: uneventful/none I spent a total of 25 minutes on the date of the service which included preparing to see the patient, lajj-ss-bufa patient care, completing clinical documentation, obtaining and/or reviewing separately obtained history, and performing a medically appropriate examination. SIGNATURE: Gaby Solorzano PA-C PATIENT NAME: Kiki Moore DATE: January 18, 2023 TIME: 12:11 PM ETX#[id number] NoteHNO ID: [id number] Author: Catalina Campbell RN Service: Care Management [...] by: Per Department Practice Potential Transition Plans Care Home Facility/Intermediate Care Facility Advance Directives Current Advance Directive: Health Care Power of Electrical Engineer Mep In Chart: Yes Up To Date and [...] walker Discharge Planning Patient Goal(s): Better mobility [place] of Choice Explained: [place] of Choice Given: Yes Level of Care Discussed: Care Home Facility Discharge Planning Participant(s): Patient Patient/Family Comments: Caregiver Assessment: Caregiver is ready, willing and able to meet the patient's needs as recommended by the inter-professional team: No Caregiver needed Transport at Discharge: Transportation Arrangements: Ambulance Transportation Agency and Phone #:: [facility] [phone] Internal Combustion Engine Inspector Location: [place] Needs Prior to Discharge: Needs Prior to [...] 18, 2023 TIME: 12:10 PM CONTACT #: [id number] NoteHNO ID: [id number] Author: Shania Hendrickson RT(R) Service: Radiology Author [...] BY: RT Scarlett(R) January 17, 2023 2:45 PMAUint[facility] [id number] Evaluation note* Diagnosis S/P total knee replacement, left (01/17/2023)- Primary documented in this encounter [facility]08-29-2023 NoteHNO ID: [id number] Author: Pedro Santana MD Service: Anesthesiology Author Type: Anesthesiologist Type: Anesthesia Procedure Notes Filed: 01/17/2023 8:56 AM Note Text: ANESTHESIOLOGY PROCEDURE NOTE Peripheral Nerve Block General Information Procedure Start Time/Medication Administration: 01/17/2023 8:06 AM Patient location during procedure: OR Timeout Performed Pre-procedure: timeout performed Consent Obtained: Yes Patient identity confirmed: arm band, care steam heating installer and patient sedated or unresponsive Reason for [...] January 17, 2023 TIME: 8:55 AM CSN: [id number] [place], [place] [id number] NoteHNO ID: [id number] Author: Otto Tejada APRN.[employer] Service: ? Author Type: Nurse Diving Supervisor Type: Anesthesia Procedure Notes Filed: 01/17/2023 8:43 AM Note Text: ANESTHESIOLOGY PROCEDURE NOTE Airway General Information Procedure Start Time/Medication Administration: 01/17/2023 8:35 AM Patient location during procedure: OR Timeout Performed Pre-procedure: timeout performed Consent Obtained: Yes Patient identity confirmed: arm band Staffing [employer]: Otto Tejada APRN.[employer]ATION[employer] OPERAT[employer] Performed by: [employer]PER[employer] Indications and Patient Condition Indications for airway management: anesthesia Preoxygenated: yes anesthesia circuit Patient position: sniffing Method: asleep Difficult Mask: No Final Airway Details Final airway type: supraglottic airway Number of attempts at approach: 1 Final Supraglottic Airway: IGEL Size 4 Seal Adequate: yes Airway not difficult SIGNATURE: Otto Tejada APRN.CRNA PATIENT NAME: Kiki Moore DATE: January 17, 2023 TIME: 8:42 AM CSN: [id number] [place], [place] [id number] NoteHNO ID: [id number] Author: Otto Tejada APRN.CRNA Service: ? Author Type: Nurse Diving Supervisor Type: Anesthesia Procedure Notes Filed: 01/17/2023 8:42 AM Note Text: ANESTHESIOLOGY PROCEDURE NOTE Spinal Block General Information Procedure Start Time/Medication Administration: 01/17/2023 7:54 AM Patient location during procedure: OR Timeout Performed Pre-procedure: timeout performed Consent Obtained: Yes Patient identity confirmed: arm band and patient Reason for Block: primary surgical anesthetic Staffing Performed by: anesthesiologist and [employer] Preparation Sterility Preparation: hand hygiene performed prior [...] January 17, 2023 TIME: 8:31 AM CSN: [id number] NoteHNO ID: [id number] Author: Judit Jarrell PA-C Service: ? Author Type: Physician Weight Caller Type: Progress Notes Filed: 12/23/2022 5:23 PM [...] . Surgery Details Date and Location: At [facility] on 01/17/23. Implants: Forest Rob[employer]: Yes Predicted LOS: 2 days (Inpatient [...] Deprivation Index (DONI) Mo (more content not included)...[facility] 12-23-2022 Instructions* Patient Instructions* Rico Florian APRN.HYDROELECTRIC PLANT MAINTAINER - 12/23/2022 10:35 AM EDT PATIENT PREOPERATIVE INSTRUCTIONS Shan Box MD has scheduled you for your procedure at this surgery center: [facility]: [phone] --[address] [place] [address]. Please enter through the entrance closest to [...] Procedures: - YOU MUST HAVE A RESPONSIBLE POLITICAL AIDE TAKE YOU HOME. A FUNDS TRANSFER CLERK OR DIRECTOR OF EDUCATION AND TRAINING CANNOT BE MADE A RESPONSIBLE POLITICAL AIDE. - We recommend that a responsible person [...] Advance Directive, please fax a copy to [phone] or email to for it to be [...] day. Rico Florian APRN.YOUNG [facility] History and physical note * Rico Florian [...] Back Pain Ra (Rheumatoid Arthritis) ([facility]) Arthritis of Left Hip Spondylolisthesis of Lumbar [...] Back pain Bursitis DVT of popliteal vein ([facility]) Glaucoma Hypertension OA (osteoarthritis) Obesity RA (rheumatoid arthritis) ([facility]) Rotator cuff syndrome Snoring Spinal stenosis, lumbar Stroke ([facility]) PAST SURGICAL HISTORY Procedure Laterality Date [...] residual deficit in 2016 No history of TIA's,PROPERTY PRESERVATION SPECIALIST tumor, impaired sensorium, hemiplegia, paraplegia or quadraplegia. [...] > 1 time per night or hematuria COMMUNICATION COORDINATOR: Negative for abnormal vaginal bleeding, abnormal vaginal [...] 06/04/2014 5.8 [facility] STAPH AUREUS PCR Order: [id number] Component Ref Range & Units 1 mo ago [facility] SA+MRSA PNL NOSE JIMBO+PROBE Negative Comment: Negative for Staphylococcus aureus by PCR. Negative for MRSA by PCR Resulting Agency [facility] Narrative Performed by [employer] Specimen Type: SWAB OF INTERNAL NOSE Ordering Facility: [facility] Address: [address] [place] [phone] Original Ordering Provider: SHAN BOX Specimen Collected: 10/26/22 3:13 PM Performed by: SURENDRA Last Resulted: 10/27/22 2:12 AM Received From: Guanri Result Received: 12/14/22 7:54 AM Most recent labs Most recent EKG: Assessment/Plan Stroke (HCC) Assessment: in 2016 no residual effects DVT of popliteal vein ([facility]) Assessment: history of DVT after knee surgery was on Eliquis for 6 months currently on ASA RA (rheumatoid arthritis) ([facility]) Assessment: Following with Rheumatology On methotrexate and Plaquenil Obesity Assessment: Body mass index is 31.55 kg/m . S/P patent foramen ovale closure Assessment: + history of PFO with closure in 2017 on ASA Stable following with door to door sales representative Clearance in [facility] Hypertension Assessment:Stable on medication BP today 119/53 Pulmonary hypertension ([facility]) Assessment: Following with Cardiology To obtain [...] Risk 15.0 % 30-day risk of , SC, or cardiac arrest From a cardiology perspective [...] 2022 TIME: 9:40 AM documented in [facility] NoteRCRI- 3???points Class IV Risk 15.0???% 30-day risk of , SC, or cardiac arrest From a cardiology perspective pt may proceed with planned Lt TKA- she is a moderate risk for a moderate risk surgery. She may hold ASA 5-7 days prior to surgery. Please monitor hemodynamics carefully and prevent major fluid shifts, will need DVT prophylaxis. This is good for 6 monthsUnPremier [facility]06-[facility]-2023 Note Coronary artery disease is stable without any concerning symptoms Continue GDMT- ASA, lipitor EKG essentially unchanged from previous- no acute concernsUnPremier Health [facility]06-21-2023 NoteStable no c/o palpitations or tachycardiaUnPremier [facility]06-21-2023 NoteUTP CARDIOLOGY PROGRESS NOTE HPI: Kiki Moore [...] is planning Lt TKA with Orthopedist in [place], [place] around this coming December. Review of [...] In January 2019 she underwent cholecystectomy at [facility]. She went home and then 2 days later she developed back pain and she was found to have shingles. She was admitted again to [facility]. During that admission troponin was checked [...] 77, LDL 44 Her echocardiogram 01/29/2019 at [facility] showed normal ventricular function and good [...] from the left a (more content not included)...[facility]06-21-2023 NoteWill repeat echcoardiogram No concerning symptoms todayUnPremier Health [facility]06-21-2023 Note Hypertension is controlled 127/67 Continue all medsUniversVan [facility]ert [facility]06-[facility]-2023 NoteLipid abnormalities are Well controlled- Chol and LDL within good range (LDL < 70 and Chol < 200)[facility]06-21-2023 Notestable [facility]06-21-2023 NoteEchocardiogram ordered with bubble study Assess cardiac function, PFO closure deviceUnPremier Health [facility] 10-27-2022 NoteHNO ID: [id number] Author: Shan Box MD Service: ? Author Type: Physician Type: Progress Notes Filed: 10/27/2022 8:11 AM Note Text: see dictated note Shan Box II, [facility]06-08-2023 History of Present illness Narrative* Shan Box MD - 10/27/2022 7:59 AM EDT see dictated note Shan Box II, MD documented in [facility] encounter[facility]23 NoteHNO ID: [id number] Author: RT Lexus(R) Service: ? Author Type: [...] BY: RT Lexus(R) October 26, 2022 1:21 [facility]06-07-2023 NoteHNO ID: [id number] Author: Shan Box MD Service: Orthopaedic Surgery Author Type: Physician Type: Progress Notes Filed: 11/01/2022 2:38 PM Note Text: [facility] [address] [place] [address] CLINIC NOTE Department of Orthopaedics - Donnell Box II, M.D. NAME: KIKI MOORE [facility] NO.: [id number] DATE OF SERVICE: 10/26/2022 CHIEF COMPLAINT: Pain [...] II, M.D. Date Dictated: 10/27/2022 Date Typed: [facility] 10/27/2022 JOB# [id number] History of Present illness Narrative* RT Lexus(R) [...] 26, 2022 1:21 PM documented in [facility] encounterThe [facility] Evaluation + Plan note Diagnostic Tests Pending * PTH Intact 06/28/22 * Calcium Level 24 Hour Urine 06/28/22 Future Scheduled Tests Laboratory* Hemoglobin and Hematocrit 09/21/21 [facility]12-28-2022 Evaluation + Plan noteExtracted from: Title:Discharge [...] Contact Information Cinda CORONEL 05/19/2022 09:30 AM [facility] [place] [address]- [facility] (1) Additional Instructions: Community-Acquired Pneumonia, Adult, Ocfm-of-Vbyp Extracted from: Title:HypoNa Author:To MILES, [facility] Date: Impression and Plan 1. Acute on [...] made to ensure accuracy, however, inadvertently computerized electric clock mechanic mistakes may be present. Extracted from: Title:APSO [...] Scheduled Tests Laboratory* Hemoglobin and Hematocrit 09/21/21 [facility]12-28-2022 Hospital Discharge instructions Patient Education 05/18/2022 09:18:20 Community-Acquired Pneumonia, Adult, Znbx-zd-Utks Community-Acquired Pneumonia, Adult Pneumonia is an infection [...] Follow these instructions at home: Medicines Take ogwv-hsi-dsonsnw and prescription medicines only as told by [...] cannot use soap and water, use hand extracorporeal technician. Contact a doctor if: You have a [...] 10/24/2008 Document Revised: 08/28/2019 Document Reviewed: 01/03/2019 [email or web address] Patient Education 2020 [employer]. Follow Up Care 05/14/2022 19:35:37 With:Cinda CORONEL Address: [address] [place] [id number] Business (1) When:05/19/2022 09:30:00 [facility]12-02-2022 Evaluation + Plan note Diagnostic Tests Pending * Vitamin E Level 04/22/22 * Vitamin B6 Lvl 04/22/22 Future Scheduled Tests Laboratory* Hemoglobin and Hematocrit 09/21/21 [facility]09-17-2022 Evaluation + Plan noteExtracted from: Title:ED [...] Scheduled Tests Laboratory* Hemoglobin and Hematocrit 09/21/21 [facility]09-17-2022 Hospital Discharge instructions Patient Education 02/05/2022 01:44:13 Cellulitis, Adult, Xegd-mx-Dbit Cellulitis, Adult Cellulitis is a skin infection. [...] Follow these instructions at home: Medicines Take nqsl-tex-mkstzbp and prescription medicines only as told by [...] 10/24/2008 Document Revised: 09/27/2018 Document Reviewed: 09/27/2018 [email or web address] Patient Education 2020 [employer]. Follow Up Care 02/04/2022 23:28:13 With:Gabo Monsalve [...] 2 to 3 days With:Cinda CORONEL Address: [employer] [place] [id number] Business (1) When:02/08/2022 [facility]06-09-2022 Evaluation + Plan note Diagnostic Tests Pending * EDNA w/Reflex if POS 10/28/21 * Vitamin E Level 10/28/21 * Antineutrophil Cytoplasmic Antibody 10/28/21 * C3 Complement 10/28/21 * C4 Complement 10/28/21 * Cryoglobulin Qualitative with Quantitative Reflex 10/28/21 * Antiextractable Nuclear Antigen 10/28/21 * Vitamin B6 Lvl 10/28/21 Future Scheduled Tests Laboratory* Hemoglobin and Hematocrit 09/21/21 [facility]05-03-2022 Hospital Discharge instructions Patient Education 09/21/2021 14:07:00 Hypotension, Qlak-yr-Tpnw Hypotension As your heart beats, it forces [...] up quickly after you eat. Medicines Take ksrz-hhh-spgvajf and prescription medicines only as told by [...] 08/02/2010 Document Revised: 11/01/2018 Document Reviewed: 11/01/2018 [email or web address] Patient Education 2020 [employer] Follow Up Care 09/21/2021 13:31:06 With:Cinda CORONEL Address: [address] [place], [place] [phone] Business (1) When:09/24/2021 13:51:06 [facility]05-03-2022 Hospital Discharge instructions Patient Education 09/21/2021 [...] 3 times a day. General instructions Take zesp-vkl-dfxbieo and prescription medicines only as told by [...] 05/05/2001 Document Revised: 10/04/2019 Document Reviewed: 09/27/2018 [email or web address] Patient Education 2020 [email or web address] 09/21/2021 12:54:47 High-Fiber Diet High-Fiber Diet [...] per serving. Talk with a diet and director of food and nutrition services (dietitian) if you have questions about specific [...] Bulgur wheat. Millet. Quinoa. Bran muffins. Popcorn. Osage wafer crackers. Meats and other proteins Bland, kidney, and kwan beans. Soybeans. Split peas. [...] Cream cheese. Sour cream. Fats and oils Meadow. Beverages Soft drinks. Other foods Cakes and [...] 05/08/2006 Document Revised: 03/12/2018 Document Reviewed: 03/12/2018 [email or web address] Patient Education 2020 [employer]. 09/21/2021 12:54:43 Diverticulosis Diverticulosis Diverticulosis is a [...] overweight. Not getting enough exercise. Smoking. Taking nbqx-tsx-qvoftuh pain medicines, like aspirin and ibuprofen. Having [...] health care provider or your diet and director of food and nutrition services (dietitian). ?Take a fiber supplement or probiotic, if your health care provider approves. Take kkcv-njr-eqhoajv and prescription medicines only as told by [...] 02/02/2005 Document Revised: 04/20/2018 Document Reviewed: 03/27/2017 [email or web address] Patient Education [employer]. Follow Up Care 09/09/2021 14:08:18 With:Julianne Brar CNP Address: When:3 months [facility] 05-03-2022 Evaluation + Plan note Future Scheduled Tests Laboratory* Hemoglobin and Hematocrit 09/21/21 [facility] 05-03-2022 Evaluation + Plan [...] Scheduled Tests Laboratory* Hemoglobin and Hematocrit 09/21/21 [facility]05-03-2022 Evaluation + Plan note Future Scheduled Tests Laboratory* Hemoglobin and Hematocrit 09/21/21 [facility]04-15-2022 Hospital Discharge instructions Patient Education 09/03/2021 09:32:57 Colonoscopy, Care After Surgery Salam (CUSTOM) Colonoscopy Care After Surgery Please read the instructions outlined below and refer to this sheet in the next few weeks. These discharge instructions provide you with general information on caring for yourself [facility] Your doctor may also give you specific [...] unsweetened, w/added ascorbic acid 1 cup 0.5 Marble 1 cup 0.7 Vegetables Cooked Green beans 1 cup 4.0 Carrots 1/2 cup sliced 2.3 Peas 1 cup 8.8 Potato (baked, with skin) 1 medium potato 3.8 Raw Everton (with peel) 1 cucumber 1.5 Lettuce 1 [...] 8.7 Peanuts 1/2 cup 7.9 Chart from [facility] 2013. SEEK IMMEDIATE MEDICAL CARE IF: You [...] Reference. Available at http://www.nal.[place]da.gov/fnic/foodcomp/search/. Information adapted from: [facility] Patient Information 2010 [employer]. [facility]. [facility] HospitalDate 2013 http://www.Per Vices/contents/ckwmeyuezdqj-mtwwvco-zewrfk-the-basics 09/03/2021 09:32:57 Hemorrhoids Hemorrhoids Hemorrhoids are swollen [...] 3 times a day. General instructions Take khyg-usz-vipzutz and prescription medicines only as told by [...] 05/05/2001 Document Revised: 10/04/2019 Document Reviewed: 09/27/2018 [email or web address] Patient Education 2020 [employer]. [facility]11-05-2015 Miscellaneous Notes* Telephone Encounter - Juliana [...] PM [facility] , ambulating 150 feet with wheeled walker and stand-by assist. Understands her hip precautions. Incision dry and intact. Pain ranging around a 5. Anticipate discharge home on Wednesday 03/07 [facility] No data available for this section [facility] Future Appointments Appointment Date:01/20/2023 11:15:00 AM Scheduled Provider: Location:[place]ICAL [place] Appointment Type:PT Eval (FT) Diagnostic Tests Pending * PTH Intact 11/21/22 [facility] assessment information available [facility] Work Phone: Evaluation note* Diagnosis MRSA (methicillin [...] with negative rheumatoid factor, involving unspecified site ([facility]) Primary osteoarthritis of left knee Primary localized osteoarthrosis, lower leg [facility] Diagnosis Primary osteoarthritis of left knee- Primary Primary localized osteoarthrosis, lower leg Primary osteoarthritis of left knee Primary localized osteoarthrosis, lower leg [facility]* Diagnosis Pre-op evaluation- Primary Preoperative examination, [...] osteoarthrosis, lower leg documented in this encounter [facility]* Diagnosis Onset Date Resolution Status Anemia acute Chronic back pain acute Chronic hyponatremia acute CKD (chronic kidney disease) acute Hyperlipidemia acute Hypertension acute Impaired mobility and activities of daily living acute Postoperative wound infection acute Pulmonary hypertension acute Rheumatoid arthritis acute S/P total knee arthroplasty acute [facility] Work Phone: Evaluation note* Diagnosis S/P total knee replacement, left- Primary documented in this encounter [facility] Discharge instructions No data available for this section [facility] No data available for this section [facility] - Pending Review Specialty Diagnoses / Procedures Referred By Jonny love Referred To Contact Physical Therapy Diagnoses Primary osteoarthritis of left knee Procedures [place] [address] [place] [id number] Referral ID Status Reason Start Date Expiration Date V isits Requested Visits Authorized [id number] Pending Review 10/27/2022 01/25/2023 1 1 * Diagnostic Procedure Only (Routine) - Closed Specialty Diagnoses / Procedures Referred By Jonny love Referred To Contact XR IMAGING Diagnoses Status post bilateral knee replacements Procedures XR KNEE GENERAL 4V AP BOTH/PA BOTH/LAT/MERC BILATERAL RADIOLOGIC EXAM KNEE COMPLETE 4/MORE VIEWS Shan Box MD [address] [place] [address] Xr Imaging Referral ID Status Reason Start Date Expiration Date V isits Requested Visits Authorized [id number] Closed Auto-Generate d Referral 10/25/2022 11/24/2023 1 1 [facility] for referral (narrative)* - Pending Review Specialty Diagnoses / Procedures Referred By Jonny love Referred To Contact Physical Therapy Diagnoses Primary osteoarthritis of left knee Procedures CONSULT TO PHYSICAL THERAPY Shan Box MD [address] [place] [address] Referral ID Status Reason Start Date Expiration Date V isits Requested Visits Authorized [id number] Pending Review 11/21/2022 02/19/2023 1 1 T [facility] (narrative)* Diagnostic Procedure Only (Routine) - Closed Specialty Diagnoses / Procedures Referred By Contac t Referred To Contact XR IMAGING Diagnoses S/P total knee replacement, left Procedures XR KNEE POST OP 3V AP/LAT/MERCHANT LEFT RADIOLOGIC EXAMINATION KNEE 3 VIEWS Shan Box MD [address] [place] [address] [place] [address] Referral ID Status Reason Start Date Expiration Date V isits Requested Visits Authorized [id number] Closed Auto-Generate d Referral 04/06/2023 05/05/2024 1 1 [facility] Summary Purpose Family History No Family [...] Documents on File Type Date Recorded 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 Advance Directive(s) 01/17/2023 6:23 AM Documents on File Type Date Recorded 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 Advance Directive(s) 01/17/2023 6:23 AM Documents on File Type Date Recorded 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 Power of Electrical Engineer Mep 11/02/2022 4:40 PM Advance Directives and Livin [...] and content) DATE CREATED AUTHOR 12/17/2017 [facility] DATE CREATED AUTHOR AUTHOR'S ORGANIZ ATION 03/19/2021 [facility] DATE CREATED AUTHOR AUTHOR'S ORGANIZ ATION 04/16/2021 [facility] DATE CREATED AUTHOR AUTHOR'S ORGANIZ ATION 07/21/2021 [facility] dical Specialist DATE CREATED AUTHOR AUTHOR'S ORGANIZ ATION 11/10/2022 [facility] DATE CREATED AUTHOR AUTHOR'S ORGANIZ ATION 01/23/2023 [facility] DATE CREATED AUTHOR AUTHOR'S ORGANIZ ATION 04/13/2023 [facility] DATE CREATED AUTHOR AUTHOR'S ORGANIZ ATION 07/07/2023 [facility] Specialists EPIC DATE CREATED AUTHOR AUTHOR'S ORGANIZ ATION 07/09/2023 [facility] DATE CREATED AUTHOR AUTHOR'S ORGANIZ ATION 08/18/2023 [facility] Source Comments (unrecognize d section and content) In the event this informatio n is protected by the Federal Confidentiality of Alcohol and Drug Abuse Patient Records regulations: The Federal rules restrict any use of the information to criminally investigate or prosecute any alcohol or drug abuse patient.[facility] HospitalIn the event this information is protected by [...] or prosecute any alcohol or drug abuse patient.[facility] HospitalIn the event this information is protected by the Federal Confidentiality of Alcohol and Drug Abuse Patient Records regulations: The Federal rules restrict any use of the information to criminally investigate or prosecute any alcohol or drug abuse patient.[facility] HospitalIn the event this information is protected by the Federal Confidentiality of Alcohol and Drug Abuse Patient Records regulations: The Federal rules restrict any use of the information to criminally investigate or prosecute any alcohol or drug abuse patient.[facility] HospitalIn the event this information is protected by the Federal Confidentiality of Alcohol and Drug Abuse Patient Records regulations: The Federal rules restrict any use of the information to criminally investigate or prosecute any alcohol or drug abuse patient.[facility] HospitalIn the event this information is protected by the Federal Confidentiality of Alcohol and Drug Abuse Patient Records regulations: The Federal rules restrict any use of the information to criminally investigate or prosecute any alcohol or drug abuse patient.[facility] Reason for Visit (unrecogniz ed section and [...] Dates Leonel Aguirre MD Attending Provider Active Spring Maker Relationship Specialty Start Date End Date Cinda Coronel [address] [place] [address] PCP - General Family Medicine 03/12/18 Spring Maker Relationship Specialty Start Date End Date Berna, Cinda Soliz [address] [facility] [place] [address] PCP - General Family Medicine 03/12/18 Spring Maker Relationship Specialty Start Date End Date Cinda Coronel [address] [place] [address] PCP - General Family Medicine 03/12/18 Spring Maker Relationship Specialty Start Date End Date Cinda Coronel [address] [place] [address] PCP - General Family Medicine 03/12/18 Team [...] Brown MD Other Provider Active Staci Dowell EMERGENCY RESPONSE OFFICER Other Provider Active Guerline Hickman , DO [...] MD Other Provider Active Diane Gross , PATTERN GRADER CUTTER-C Other Provider Active Enrique Rousseau MD Other [...] Franklin MD Other Provider Active Yari Solorzano APRN Other Provider Active Sihra Sosa APRN Other Provider Active Christina Cross MD Other Provider Active Saul Rucker MD Other Provider Active Juliana Mcintyre APRN Other Provider Active Bhumi Jacques , OTIS Other Provider Active Spring Maker Relationship Specialty Start Date End Date Cinda Coronel, PA-C [address] [place] [address] PCP - General Family Medicine 03/12/18 Team Status: Inactive Member Role Status Dates PHYSICIAN NO FAMILY Primary Care Provider Active Syd Muir MD Admit Provider, Attending Provider A hortensia Cruz , OTIS Other Provider Active Nathaile Mack , OTIS Other Provider Active Rasheeda Olsen , OTIS Other Provider Active Abril Durán , OTIS Other Provider Active Clarissa Souza , OTIS Other Provider Active Fadumo Virk , OTIS Other Provider Active Will Brown MD Other Provider Active Staci Dowell , EMERGENCY RESPONSE OFFICER Other Provider Active Guerline Hickman , DO Other Provider Active Levar Rodriguez MD Other Provider Active Tom Jenkins , DO Other Provider Active Sotero Daley MD Other Provider Active Sue Beasley MD Other Provider Active Ivy Gannon EMERGENCY RESPONSE OFFICER Other Provider Active Pema Patel MD Other Provider Active Brown Young MD Other Provider Active Simi Alcaraz MD Other Provider Active Annia Esparza MD Other Provider Active Shan Hou , DO Other Provider Active Mihaela Brown MD Other Provider Active Robin Randhawa MD Other Provider Active Diane Gross , PATTERN GRADER CUTTER-C Other Provider Active Enrique Rousseau MD Other Provider Active Conrad Davison MD Other Provider Active Montez Velazquez MD Other Provider Active Malcolm Burgos MD Other Provider Active Shantell Patterson , DO Other Provider Active Carlos Garcia , DO Other Provider Active Wm Belle , DO Other Provider Active Kiki Michel EMERGENCY RESPONSE OFFICER Other Provider Active Coy Arias , DO Other Provider Active Louis Franklin MD Other Provider Active Yari Solorzano EMERGENCY RESPONSE OFFICER Other Provider Active Shira Sosa , EMERGENCY RESPONSE OFFICER Other Provider Active Christina Cross MD Other Provider Active Saul Rucker MD Other Provider Active Juliana Mcintyre EMERGENCY RESPONSE OFFICER Other Provider Active Bhumi Jacques , OTIS Other Provider Active Team Status: Inactive Member Role Status Dates PHYSICIAN NO FAMILY Primary Care Provider Active Leonel Aguirre MD Attending Provider Active Spring Maker Relationship Specialty Start Date End Date Cinda Coronel, PA-C [facility] [place] [address] PCP - General Family Medicine 03/12/18 Spring Maker Relationship Specialty Start Date End Date IlianaWildaAlysiaritu Hernandez DO [address] [place] [address] PCP - General Family Medicine 10/31/22 Goals [...] BE BASED ON THE PRIMARY CLINICAL RECORDS. [facility] [employer] provides no warranty or guarantee of the accuracy or completeness of information in this document.
[2023-08-24] MEDS: DIAZEPAM 5 MG TABLET 10 MG PO (07:15)
[2023-08-24 07:21] VITALS: BP 143/80; PULSE 68; O2SAT 96
[2023-08-24 08:06] VITALS: PULSE 64; O2SAT 94
[2023-08-24 08:10] VITALS: BP 144/74
[2023-08-24 08:12] VITALS: BP 138/76; PULSE 62; O2SAT 97
[2023-08-24] MEDS: APRACLONIDINE HCL 100 DROP/5 ML BOTTLE EYE-RIGHT (08:12)
[2023-08-24] MEDS: HYALURONATE SODIUM 16 MG/ML SYRINGE OP (08:13)
[2023-08-24] MEDS: PHENYLEPHRINE/KETOROLAC 1-0.3% ML VIAL 4 ML IRR (08:13)
[2023-08-24] MEDS: LIDOCAINE 2% JELLY 10 ML TOPICAL (08:13)
[2023-08-24] MEDS: LIDOCAINE HCL 1% PF 20 MG/2 ML VIAL INJ (08:13)
[2023-08-24] MEDS: CEFUROXIME SODIUM 750 MG, 0.9 % SODIUM CHLORIDE 16.3 ML OP (08:14)
[2023-08-24] MEDS: TETRACAINE HCL 0.5% OP SOL 80 DROP/4 ML BOTTLE EYE-RIGHT (08:14)
[2023-08-24] MEDS: PREDNISOLONE ACETATE OP 1% SUSP 100 DROPS/5 ML 1 DROP EYE-RIGHT (08:14)
[2023-08-24] MEDS: BETADINE POVIDONE-IODINE 5% OP SOL 30 ML BOTTLE OP (08:14)
== END 2023-08-24 08:40 | disposition home or self-care (01) ==
LOC: SURGOUT 07:05
PROVIDERS: PCP Physician Assistant; Visit Provider Ophthalmology
PROC: (CPT 66991; principal; 2023-08-24 07:50)
DX: H25.11 Age-related nuclear cataract, right eye (principal); H40.1111 Primary open-angle glaucoma, right eye, mild stage
CPT/HCPCS: 66991; C1783